=== PATIENT | female | born 1940 | race African-American/Black ===

== ENCOUNTER 2017-04-05 11:45 | Inpatient (IN) | payer OTHER ==
[2017-04-05] MEDS ORDERED: SODIUM CHLORIDE 0.9% 1000 ML INFUS.BAG IV STA (12:18)
[2017-04-05] MEDS ORDERED: ACETAMINOPHEN 1000 MG/100 ML VIAL (NON FORMULARY) IVPB ONE (12:35)
[2017-04-05] MEDS ORDERED: ACETAMINOPHEN INJECTION 100 ML IVPB ONE (12:43)
[2017-04-05 12:55] LABS: VENOUS BLOOD GAS HCO3 29.9 meq/L (19-25); VENOUS PH 7.4 (7.32-7.42)
--- NOTE | 2017-04-05 13:16 | PDOC ---
History of Present Illness <Ankita Lam - Last Filed: 04/05/17 13:37> - General History Source: Patient, Other (home health aide) Exam Limitations: No Limitations - History of Present Illness Initial Comments: 04/05/17 12:17 76-year-old female presents to the emergency department for evaluation of fever , fatigue, and constipation. As per her home health aid patient was given laxative by her and now is moving a bowel movement but fever continues despite giving her Motrin earlier. Patient denies abdominal pain but does state cough with weakness without difficulty breathing but does state sleep apnea requiring her to use BiPAP at night. Patient history of renal failure, diabetes , anemia, hypertension, COPD, CVA, asthma, and obesity. Timing/Duration: getting worse Severity: moderate Associated Symptoms: reports: cough, fever/chills, weakness <Heidi Beltran - Last Filed: 04/05/17 16:34> - General Chief Complaint: Lethargy Stated Complaint: LETHARGY/ABD PAIN Time Seen by Provider: 04/05/17 11:56 Past History <Ankita Lam - Last Filed: 04/05/17 13:37> - Travel Traveled outside of the country in the last 30 days: No Close contact w/someone who was outside of country & ill: No - Past Medical History Anemia: Yes Asthma: Yes Cardiac Disorders: Yes (CARDIAC CATH, HCVD) CVA: Yes (R hemiparesis) COPD: Yes Diabetes: Yes HTN: Yes Thyroid Disease: Yes - Surgical History Cardiac Surgery: Yes (CARDIAC CATH) - Immunization History Immunization Up to Date: Yes - Psycho/Social/Smoking Cessation Hx Anxiety: No Suicidal Ideation: No Smoking Status: Yes Smoking History: Never smoked Have you smoked in the past 12 months: No Number of Cigarettes Smoked Daily: 0 If you are a former smoker, when did you quit?: 2000 Cigars Per Day: 0 Information on smoking cessation initiated: No Hx Alcohol Use: No Drug/Substance Use Hx: No Substance Use Type: None Hx Substance Use Treatment: No Patient Lives Alone: No Lives with/in: spouse/SO <Heidi Beltran - Last Filed: 04/05/17 16:34> - Past Medical History Allergies/Adverse Reactions: Allergies Allergy/AdvReac Type Severity Reaction Status Date / Time codeine [Codeine] Allergy Severe Hives Verified 04/05/17 12:15 Iodine and Iodide Containing Allergy Verified 04/05/17 12:15 Produc nuts Allergy Mild Uncoded 04/05/17 12:15 Home Medications: Ambulatory Orders Atorvastatin Ca [Lipitor] 40 mg PO HS #7 tablet 08/05/12 Amlodipine Besylate [Norvasc -] 10 mg PO DAILY 03/02/16 Docusate Sodium [Colace -] 100 mg PO DAILY 08/09/16 Insulin Aspart [Novolog Flexpen] 100 unit SQ ASDIR 08/09/16 Insulin (Levemir) [Levemir Vial] 25 units SQ HS ml 08/27/16 Isosorbide Mononitrate [Imdur -] 30 mg PO DAILY tab.sr.24h 08/27/16 Levothyroxine [Synthroid -] 88 mcg PO AM tablet 08/27/16 Aspirin [ASA -] 81 mg PO DAILY 04/05/17 Review of Systems - Review of Systems Able to Perform ROS?: Yes Constitutional: Yes: Weakness HEENTM: No: Symptoms Reported Respiratory: Yes: Cough Cardiac (ROS): No: Symptoms Reported ABD/GI: Yes: Constipated Musculoskeletal: No: Symptoms Reported Integumentary: No: Symptoms Reported Neurological: Yes: Weakness Endocrine: No: Symptoms Reported Hematologic/Lymphatic: No: Symptoms Reported <Heidi Beltran - Last Filed: 04/05/17 16:34> *Physical Exam - Vital Signs Last Vital Signs Temp Pulse Resp BP Pulse Ox 102.5 F H 85 18 130/95 100 04/05/17 11:45 04/05/17 12:30 04/05/17 11:45 04/05/17 11:45 04/05/17 12:30 <Ankita Lam - Last Filed: 04/05/17 13:37> - Vital Signs Last Vital Signs Temp Pulse Resp BP Pulse Ox 102.5 F H 85 18 130/95 100 04/05/17 11:45 04/05/17 12:30 04/05/17 11:45 04/05/17 11:45 04/05/17 12:30 - Physical Exam General Appearance: Yes: Nourished, Appropriately Dressed. No: Apparent Distress HEENT: positive: EOMI, ANTONY, TMs Normal, Pharynx Normal. negative: Pale Conjunctivae Neck: positive: Supple Respiratory/Chest: positive: Decreased Breath Sounds (bases bilateral). negative: Respiratory Distress, Accessory Muscle Use Cardiovascular: positive: Regular Rhythm, Regular Rate. negative: Murmur Gastrointestinal/Abdominal: positive: Soft. negative: Tenderness Integumentary: positive: Normal Color, Warm, Moist Neurologic: positive: Normal Mood/Affect <Heidi Beltran - Last Filed: 04/05/17 16:34> Heart Score/ECG Review - ECG Intrepretation Rhythm: Regular Rhythm (rate 76) <Heidi Beltarn - Last Filed: 04/05/17 16:34> ED Treatment Course - LABORATORY CBC & Chemistry Diagram: 04/05/17 12:20 04/05/17 12:20 - ADDITIONAL ORDERS Additional order review: Laboratory Results 04/05/17 04/05/17 12:45 12:18 VBG pH 7.40 POC VBG pCO2 49.3 POC VBG pO2 45.1 Mixed VBG HCO3 29.9 H Lactic Acid 1.2 - RADIOLOGY Radiology Studies Ordered: Category Date Time Status CHEST X-RAY PORTABLE* [RAD] Stat Radiology 04/05/17 12:18 Completed - Medications Given in the ED: ED Medications Discontinued Medications Generic Name Dose Route Start Last Admin Trade Name Freq PRN Reason Stop Dose Admin Acetaminophen 1,000 mg 04/05/17 12:35 04/05/17 12:54 Ofirmev Injection - IVPB 04/05/17 12:36 1,000 mg ONCE ONE Administration Sodium Chloride 2,600 ml 04/05/17 12:18 04/05/17 12:54 Normal Saline - IV 04/05/17 12:19 2,600 ml ONCE STA Administration <Ankita Lam - Last Filed: 04/05/17 13:37> - LABORATORY CBC & Chemistry Diagram: 04/05/17 12:20 04/05/17 12:20 - ADDITIONAL ORDERS Additional order review: Laboratory Results 04/05/17 12:18 VBG pH 7.40 POC VBG pCO2 49.3 POC VBG pO2 45.1 Mixed VBG HCO3 29.9 H - Medications Given in the ED: ED Medications Discontinued Medications Generic Name Dose Route Start Last Admin Trade Name Freq PRN Reason Stop Dose Admin Acetaminophen 1,000 mg 04/05/17 12:35 04/05/17 12:54 Ofirmev Injection - IVPB 04/05/17 12:36 1,000 mg ONCE ONE Administration Sodium Chloride 2,600 ml 04/05/17 12:18 04/05/17 12:54 Normal Saline - IV 04/05/17 12:19 2,600 ml ONCE STA Administration <Heidi Beltran - Last Filed: 04/05/17 16:34> Medical Decision Making - Medical Decision Making 04/05/17 13:37 Pt seen and examined by me. Agree with above history and physical, assessment and plan. patient presents to the Ed complaining of shortness of breath. Febrile and tachypneic on arrival to the ED, speaking in one to two word sentences. History of morbid obesity and sleep apnea, uses bipap and home O2. Treated for sepsis with broad spectrum antibiotics, [id number] on bipap . Will check labs and admit for sepsis. <Ankita Lam - Last Filed: 04/05/17 13:37> - Medical Decision Making 04/05/17 12:21 Patient brought in for fever, cough, and weakness. Patient exam was found to have a fever of 102.5 with decreased breath sounds at bases. Patient ordered septic workup, IV Tylenol, BiPAP although satting at 100% . 04/05/17 13:55 Laboratory Tests 04/05/17 04/05/17 04/05/17 12:18 12:20 12:45 WBC 14.3 H Hgb 9.6 L D Hct 29.3 L Neutrophils % 87.3 H D Mixed VBG HCO3 29.9 H Lactic Acid 1.2 Chest x-ray compared to 08/21/2016 shows no acute Pathology. Urine pending. patient upon arrival was ordered for [facility] for sepsis coverage. 04/05/17 15:06 Laboratory Tests 08/24/16 08/26/16 08/27/16 06:05 07:00 07:05 Sodium Potassium Chloride Carbon Dioxide Anion Gap BUN Creatinine 3.2 H 2.9 H 2.8 H Random Glucose Calcium Total Bilirubin AST ALT Urine Protein Ur Leukocyte Esterase 04/05/17 04/05/17 12:20 14:35 Sodium 138 Potassium 4.6 Chloride 97 L Carbon Dioxide 30 Anion Gap 11 BUN 70 H D Creatinine 2.9 H Random Glucose 162 H D Calcium 9.1 Total Bilirubin 0.6 D AST 25 D ALT 21 D Urine Protein 1+ H Ur Leukocyte Esterase 1+ H 04/05/17 15:30 Laboratory Tests 04/05/17 14:35 Urine WBC 15 Patient with previous urine culture that was sensitive to cephalosporins secondary to Escherichia coli organism from a urine collected from July 2016. Case discussed with hospitalist for admission secondary to sepsis and UTI. Accepted under Dr. carr to [facility] inpatient 04/05/17 16:33 <Heidi Beltran - Last Filed: 04/05/17 16:34> *DC/Admit/Observation/Transfer <Ankita Lam - Last Filed: 04/05/17 13:37> - Discharge Dispostion Admit: Yes <Heidi Beltran - Last Filed: 04/05/17 16:34> Diagnosis at time of Disposition: CKD (chronic kidney disease) UTI (urinary tract infection) Qualifiers: Urinary tract infection type: acute cystitis Hematuria presence: without hematuria Qualified Code(s): N30.00 - Acute cystitis without hematuria Sepsis Qualifiers: Sepsis type: Escherichia coli Qualified Code(s): A41.51 - Sepsis due to Escherichia coli [E. coli] - Referrals Referrals: Jose Ramon Holt MD [Primary Care Provider] -
[2017-04-05 13:35] LABS: BASOPHIL 0.4 % (0-2.0); EOSINOPHIL 0.1 % (0-4.5); MCH 27.7 pg (25.7-33.7); MCHC 32.7 g/dl (32.0-36.0); MEAN CELL VOLUME 84.8 fl (80-96); MEAN PLT VOLUME 9.1 fl (7.5-11.1); NEUTROPHILS 87.3 % (42.8-82.8); PLATELET COUNT 176 K/MM3 (134-434); RDW 15.6 % (11.6-15.6); WHITE BLOOD COUNT 14.3 K/mm3 (4.0-10.0)
[2017-04-05 13:47] LABS: INR 1.27 (0.82-1.09)
[2017-04-05] MEDS ORDERED: VANCOMYCIN 1,000 MG in DEXTROSE 5%-WATER - 250 ML IVPB ONE (13:47)
[2017-04-05 13:50] LABS: ACTIVATED PTT 32.8 SECONDS (26.9-34.4)
[2017-04-05 14:02] LABS: ALBUMIN 3.6 g/dl (3.4-5.0); ANION GAP 11 (8-16); BILIRUBIN,TOTAL 0.6 mg/dL (0.2-1.0); CALCIUM 9.1 mg/dL (8.5-10.1); CO2 30 mmol/L (21-32); CREATININE 2.9 mg/dL (0.55-1.02); GLUCOSE,RANDOM 162 mg/dL (74-106); SGOT/AST 25 U/L (15-37); SGPT/ALT 21 U/L (12-78); TOT PROT 7.1 g/dl (6.4-8.2)
[2017-04-05 14:03] LABS: ALK PHOS 84 U/L (45-117)
[2017-04-05] MEDS ORDERED: VANCOMYCIN 1 GRAM (PRE-DOCKED) 250 ML IVPB ONE (14:43)
[2017-04-05 14:47] LABS: URINE APPEARANCE CLEAR; URINE BILIRUBIN NEGATIVE (NEGATIVE); URINE COLOR STRAW; URINE GLUCOSE (UA) NEGATIVE (NEGATIVE); URINE KETONE NEGATIVE (NEGATIVE); URINE NITRITE NEGATIVE (NEGATIVE); URINE UROBILINOGEN NEGATIVE E.U./dl (0.2-1.0)
[2017-04-05 15:04] LABS: URINE BLOOD 1+ (NEGATIVE); URINE LEUK ESTERASE 1+ (NEGATIVE); URINE PROTEIN 1+ (NEGATIVE)
[2017-04-05 15:05] LABS: URINE BACTERIA RARE /hpf (NONE SEEN); URINE MUCUS RARE; URINE RBC <1 /hpf (0-3); URINE WBC 15 /hpf (3-5)
--- NOTE | 2017-04-05 17:12 | PN ---
Teaching Attending Note Name of Resident: Mark Garcia ATTENDING PHYSICIAN STATEMENT I saw and evaluated the patient. I reviewed the resident's note and discussed the case with the resident. I agree with the resident's findings and plan as documented. SUBJECTIVE: Patient presented with rigors unable to have a conversation and unable to say a word due to having rigors. OBJECTIVE: Vital Signs Temperature 102.5 F H 04/05/17 11:45 Pulse Rate 81 04/05/17 16:07 Respiratory Rate 23 04/05/17 16:07 Blood Pressure 146/78 04/05/17 16:07 O2 Sat by Pulse Oximetry (%) 100 04/05/17 16:07 CBCD WBC 14.3 K/mm3 (4.0-10.0) H 04/05/17 12:20 RBC 3.45 M/mm3 (3.60-5.2) L 04/05/17 12:20 Hgb 9.6 GM/dL (10.7-15.3) L D 04/05/17 12:20 Hct 29.3 % (32.4-45.2) L 04/05/17 12:20 MCV 84.8 fl (80-96) 04/05/17 12:20 MCHC 32.7 g/dl (32.0-36.0) 04/05/17 12:20 RDW 15.6 % (11.6-15.6) 04/05/17 12:20 Plt Count 176 K/MM3 (134-434) D 04/05/17 12:20 MPV 9.1 fl (7.5-11.1) 04/05/17 12:20 CMP Sodium 138 mmol/L (136-145) 04/05/17 12:20 Potassium 4.6 mmol/L (3.5-5.1) 04/05/17 12:20 Chloride 97 mmol/L (98-107) L 04/05/17 12:20 Carbon Dioxide 30 mmol/L (21-32) 04/05/17 12:20 Anion Gap 11 (8-16) 04/05/17 12:20 BUN 70 mg/dL (7-18) H D 04/05/17 12:20 Creatinine 2.9 mg/dL (0.55-1.02) H 04/05/17 12:20 Creat Clearance w eGFR 15.78 (>60) 04/05/17 12:20 Random Glucose 162 mg/dL (74-106) H D 04/05/17 12:20 Calcium 9.1 mg/dL (8.5-10.1) 04/05/17 12:20 Total Bilirubin 0.6 mg/dL (0.2-1.0) D 04/05/17 12:20 AST 25 U/L (15-37) D 04/05/17 12:20 ALT 21 U/L (12-78) D 04/05/17 12:20 Alkaline Phosphatase 84 U/L (45-117) 04/05/17 12:20 Total Protein 7.1 g/dl (6.4-8.2) D 04/05/17 12:20 Albumin 3.6 g/dl (3.4-5.0) D 04/05/17 12:20 Home Medications Medication Instructions Recorded Atorvastatin Ca [Lipitor] 40 mg PO HS #7 tablet 08/05/12 Amlodipine Besylate [Norvasc -] 10 mg PO DAILY 03/02/16 Docusate Sodium [Colace -] 100 mg PO DAILY 08/09/16 Insulin Aspart [Novolog Flexpen] 100 unit SQ ASDIR 08/09/16 Insulin (Levemir) [Levemir Vial] 25 units SQ HS ml 08/27/16 Isosorbide Mononitrate [Imdur -] 30 mg PO DAILY tab.sr.24h 08/27/16 Levothyroxine [Synthroid -] 88 mcg PO AM tablet 08/27/16 Aspirin [ASA -] 81 mg PO DAILY 04/05/17 Current Medications Generic Name Dose Route Start Last Admin Trade Name Freq PRN Reason Stop Dose Admin Acetaminophen 650 mg 04/05/17 17:56 Tylenol - PO Q6H PRN PAIN OR FEVER Albuterol Sulfate 1 amp 04/05/17 18:59 Ventolin 0.083% Nebulizer Soln - NEB Q6H PRN SHORT OF BREATH/WHEEZING Amlodipine Besylate 10 mg 04/06/17 10:00 Norvasc - PO DAILY [facility] Aspirin 81 mg 04/06/17 10:00 Asa - PO DAILY [facility] Atorvastatin Calcium 40 mg 04/05/17 22:00 Lipitor - PO HS [facility] Ceftriaxone Sodium 1 gm 04/05/17 19:45 Rocephin - IM 04/05/17 19:46 ONCE ONE Docusate Sodium 100 mg 04/06/17 10:00 Colace - PO DAILY [facility] Sodium Chloride 1,000 mls @ 50 mls/hr 04/05/17 17:45 04/05/17 18:05 Normal Saline - IV 04/06/17 13:44 50 mls/hr ASDIR [facility] Administration Ceftriaxone Sodium 2 gm/ 100 mls @ 200 mls/hr 04/06/17 10:00 Dextrose IVPB DAILY [facility] Insulin Aspart 1 vial 04/05/17 22:00 Novolog Vial Sliding Scale - SQ ACHS [facility] Protocol Insulin Detemir 25 units 04/05/17 22:00 Levemir Vial SQ HS [facility] Isosorbide Mononitrate 30 mg 04/06/17 10:00 Imdur - PO DAILY [facility] Levothyroxine Sodium 88 mcg 04/06/17 07:00 Synthroid - PO AM [facility] Echo 08/13/17: Left ventricular Ejection fraction normal, left ventricular size , thickness and function normal. Mild MR and TR, right ventricular systolic pressure normal. ASSESSMENT AND PLAN: Patient is a 76-year-old female with a significant medical history of CVA ( residual R-saima paresis, slurred speech), Asthma, DM Type II, COPD, CKD Stage 4 , Pneumonia, PVD, HTN, Chronic R- lower extremity edema presented to the ED via EMS with the chief complaints of Left upper quadrant pain x 2 days. # Acute Sepsis , Patient had prior gram negative bacteremia with UTI sensitive to Rocephin. will start her 2gm IV daily 1st dose today, ID consult in am. # Acute UTI with sepsis presented with Rigors, possible pylonephritis vs gram negative bacteremia. . ID consult to see the patient. Tylenol prn #Acute over chronic CKD stage IV with Creatinine 2.9 (baseline around 2.5), Nephrology consult # Normocytic anemia monitor possible due to CKD # Hx of CVA (residual right hemiparesis); No signs/symptoms of new stroke # Hypertension-controlled; Norvasc 10mg PO Daily # Hx of COPD continue nebulizer txment # CAD (s/p cath but no stents) continue Aspirin 81mg Daily # DM; HbA1c ordered for am; Levemir 25U sq HS; BGM, ISS ACHS # Hypothyroidism continue Levothyroxine 88 mcg PO AM DVT Px: Heparin sq
[2017-04-05] MEDS ORDERED: CEFTRIAXONE 50 ML IVPB ONE (17:27)
[2017-04-05] MEDS ORDERED: CEFTRIAXONE 50 ML ONE (17:41)
--- NOTE | 2017-04-05 17:44 | HP ---
CHIEF COMPLAINT: Left back pain PCP: Jared HISTORY OF PRESENT ILLNESS: This is a 76 y/o F with PMH obesity, cva (with residual right sided weakness), asthma, ckd, cad (s/p cardiac cath), DM, HTN, hypothyroidism, GI bleed with anemia (s/p transfusion in the past) who presented to the ED with left abdominal and flank pain. The pain was sharp, located at the left lower costal margin at the midscapular line, beginning yesterday afternoon, nonradiating, without alleviating or exacerbating factors, constant, and moderate to severe. The patient's states he noticed that she did not appear to be in her usual state of health and that she looked similar to how she has looked prior to previous hospital admissions. She had been constipated, so he gave her a larger dose of her usual stool softener, which precipitated a large bowel movement. This was yesterday prior to the onset of her flank pain. The patient had a recent visit to her doctor's office, though she cannot recall which doctor that was. She has a home health aid for 11 hrs per day. She sees Dr. Coleman as her PCP. ER course was notable for: (1) Urine and blood cultures drawn and pending (2) febrile at 102.5, bp 138/90, hr 71, O2 sat 100% on NIPPV (3) 1 dose Vanco 250 IVPB Recent Travel: denies PAST MEDICAL HISTORY: obesity, cva (residual RUE weakness), asthma, ckd, cad (s/p cardiac cath), DM, HTN, hypothyroidism, GI bleed with anemia (s/p transfusion in the past) PAST SURGICAL HISTORY: heart cath without stent Social History: Smoking: remote Alcohol: denies Drugs: denies Family History: denies Allergies: codeine [Codeine] Allergy (Severe, Verified 04/05/17 12:15) Hives Iodine and Iodide Containing Produc Allergy (Verified 04/05/17 12:15) nuts Allergy (Mild, Uncoded 04/05/17 12:15) HOME MEDICATIONS: Home Medications Medication Instructions Recorded Atorvastatin Ca [Lipitor] 40 mg PO HS #7 tablet 08/05/12 Amlodipine Besylate [Norvasc -] 10 mg PO DAILY 03/02/16 Docusate Sodium [Colace -] 100 mg PO DAILY 08/09/16 Insulin Aspart [Novolog Flexpen] 100 unit SQ ASDIR 08/09/16 Insulin (Levemir) [Levemir Vial] 25 units SQ HS ml 08/27/16 Isosorbide Mononitrate [Imdur -] 30 mg PO DAILY tab.sr.24h 08/27/16 Levothyroxine [Synthroid -] 88 mcg PO AM tablet 08/27/16 Aspirin [ASA -] 81 mg PO DAILY 04/05/17 REVIEW OF SYSTEMS CONSTITUTIONAL: fever, malaise Absent: chills, diaphoresis, generalized weakness, loss of appetite, weight change HEENT: Absent: rhinorrhea, nasal congestion, throat pain, throat swelling, difficulty swallowing, mouth swelling, ear pain, eye pain, visual changes CARDIOVASCULAR: Absent: chest pain, syncope, palpitations, irregular heart rate, lightheadedness , peripheral edema RESPIRATORY: Absent: cough, shortness of breath, dyspnea with exertion, orthopnea, wheezing, stridor, hemoptysis GASTROINTESTINAL: Absent: abdominal pain, abdominal distension, nausea, vomiting, diarrhea, constipation, melena, hematochezia GENITOURINARY: frequency, flank pain, urgency Absent: dysuria, hesitancy, hematuria, , genital pain MUSCULOSKELETAL: Absent: myalgia, arthralgia, joint swelling, back pain, neck pain SKIN: Absent: rash, itching, pallor HEMATOLOGIC/IMMUNOLOGIC: Absent: easy bleeding, easy bruising, lymphadenopathy, frequent infections ENDOCRINE: Absent: unexplained weight gain, unexplained weight loss, heat intolerance, cold intolerance NEUROLOGIC: Absent: headache, focal weakness or paresthesias, dizziness, unsteady gait, seizure, mental status changes, bladder or bowel incontinence PSYCHIATRIC: Absent: anxiety, depression, suicidal or homicidal ideation, hallucinations. PHYSICAL EXAMINATION Vital Signs - 24 hr 04/05/17 04/05/17 04/05/17 11:45 12:30 14:00 Temperature 102.5 F H Pulse Rate 75 87 Pulse Rate [ 71 Apical] Respiratory 18 24 Rate Blood Pressure 130/95 Blood Pressure 138/90 [Left] O2 Sat by Pulse 100 100 100 Oximetry (%) 04/05/17 04/05/17 04/05/17 14:40 15:00 16:07 Temperature Pulse Rate Pulse Rate [ 76 81 Apical] Respiratory 22 23 Rate Blood Pressure Blood Pressure 122/67 146/78 [Left] O2 Sat by Pulse 99 100 100 Oximetry (%) GENERAL: Awake, alert, and fully oriented, in respiratory distress. HEAD: Normal with no signs of trauma. EYES: conjunctival palor. Pupils equal, round and reactive to light, extraocular movements intact, sclera anicteric, No lid lag. EARS, NOSE, THROAT: Ears normal, nares patent, oropharynx clear without exudates. Moist mucous membranes. NECK: Normal range of motion, supple without lymphadenopathy, JVD, or masses. LUNGS: b/l wheeze, Breath sounds equal. no crackles. No accessory muscle use. HEART: Regular rate and rhythm, normal S1 and S2 without murmur, rub or gallop. ABDOMEN: B/l flank tenderness L>R, Soft, obese, not distended, normoactive bowel sounds, no guarding, no rebound, no masses. No hepatomegaly or splenomegaly. MUSCULOSKELETAL: Normal range of motion at all joints. No bony deformities or tenderness. No CVA tenderness. UPPER EXTREMITIES: 2+ pulses, warm, well-perfused. No cyanosis. No clubbing. No peripheral edema. LOWER EXTREMITIES: 2+ pulses, warm, well-perfused. No calf tenderness. No peripheral edema. NEUROLOGICAL: Cranial nerves II-XII intact. Normal speech. Normal gait. PSYCHIATRIC: Cooperative. Good eye contact. Appropriate mood and affect. SKIN: Warm, dry, normal turgor, no rashes or lesions noted, normal capillary refill. Laboratory Results - last 24 hr 04/05/17 04/05/17 04/05/17 12:18 12:20 12:20 WBC 14.3 H RBC 3.45 L Hgb 9.6 L D Hct 29.3 L MCV 84.8 MCH 27.7 MCHC 32.7 RDW 15.6 Plt Count 176 D MPV 9.1 Neutrophils % 87.3 H D Lymphocytes % 6.5 L D Monocytes % 5.7 Eosinophils % 0.1 D Basophils % 0.4 INR 1.27 H PTT (Actin FS) 32.8 VBG pH 7.40 POC VBG pCO2 49.3 POC VBG pO2 45.1 Mixed VBG HCO3 29.9 H Sodium Potassium Chloride Carbon Dioxide Anion Gap BUN Creatinine Creat Clearance w eGFR Random Glucose Lactic Acid Calcium Total Bilirubin AST ALT Alkaline Phosphatase Total Protein Albumin Urine Color Urine Appearance Urine pH Urine Protein Urine Glucose (UA) Urine Ketones Urine Blood Urine Nitrite Urine Bilirubin Urine Urobilinogen Ur Leukocyte Esterase Urine RBC Urine WBC Ur Epithelial Cells Urine Bacteria Urine Mucus 04/05/17 04/05/17 04/05/17 12:20 12:45 14:35 WBC RBC Hgb Hct MCV MCH MCHC RDW Plt Count MPV Neutrophils % Lymphocytes % Monocytes % Eosinophils % Basophils % INR PTT (Actin FS) VBG pH POC VBG pCO2 POC VBG pO2 Mixed VBG HCO3 Sodium 138 Potassium 4.6 Chloride 97 L Carbon Dioxide 30 Anion Gap 11 BUN 70 H D Creatinine 2.9 H Creat Clearance w eGFR 15.78 Random Glucose 162 H D Lactic Acid 1.2 Calcium 9.1 Total Bilirubin 0.6 D AST 25 D ALT 21 D Alkaline Phosphatase 84 Total Protein 7.1 D Albumin 3.6 D Urine Color Straw Urine Appearance Clear Urine pH 7.0 D Urine Protein 1+ H Urine Glucose (UA) Negative Urine Ketones Negative Urine Blood 1+ H Urine Nitrite Negative Urine Bilirubin Negative Urine Urobilinogen Negative Ur Leukocyte Esterase 1+ H Urine RBC <1 Urine WBC 15 Ur Epithelial Cells Rare Urine Bacteria Rare Urine Mucus Rare ASSESSMENT/PLAN: This is a 76 y/o F with PMH obesity, cva (with residual right sided weakness), asthma, ckd, cad (s/p cardiac cath), DM, HTN, thyroid disease, GI bleed with anemia (s/p transfusion in the past) who presented to the ED with left abdominal and flank pain. #Sepsis -likely secondary to UTI -vitals in ED: temp 102.5, BP 138/90, HR 71, O2 sat 100% -in ED, pt received 1 dose Vanco 250mg IVPB, NS 2600ml, acetaminophen 1000mg IVPB, UA (+1 prot, +1 blood, +1 LE, RBC < 1, WBC 15), urine culture, blood culture -Admit to Med/Surg -NS 50/hr x 1 bag -Acetaminophen 650mg Q6H PRN -Ceftriaxone 1gm Daily -Nephro consult (Dr. Zamorano) -Renal U/S #DM -ISS -Levemir 25u SQ HS -pending A1c #HTN -Amlodipine 10mg PO Daily #CAD -Lipitor 40mg PO HS -Isosorbide Mononitrate 30mg PO Daily -ASA 81mg PO Daily -Previous Echo shows normal LVEF #Asthma/COPD -Albuterol Neb 0.083% Q6H PRN #Hypothyroid -Synthroid 88mcg PO AM #Constipation -Colace 100mg PO Daily #FEN -NS 50/hr x 1 bag -high BUN/Marzipan Maker likely 2/2 CKD -NPO #Dispo -Admit to Med/Surg Visit type - Emergency Visit Emergency Visit: Yes ED Registration Date: 04/05/17 Care time: The patient presented to the Emergency Department on the above date and was hospitalized for further evaluation of their emergent condition. - New Patient This patient is new to me today: Yes Date on this admission: 04/05/17 - Critical Care Critical Care patient: No
[2017-04-05] MEDS ORDERED: SODIUM CHLORIDE 1,000 ML IV SCH (17:45)
--- NOTE | 2017-04-05 17:45 | HP ---
CHIEF COMPLAINT: " Left upper quadrant pain" PCP: HISTORY OF PRESENT ILLNESS: Patient is a 76-year-old female with a significant medical history of CVA ( residual R-saima paresis, slurred speech), Asthma, DM Type II, COPD, CKD Stage 4 , Pneumonia, PVD, HTN, Chronic R- lower extremity edema presented to the ED via EMS with the chief complaints of Left upper quadrant abdominal pain x 2 days. As per the patients , she was apparently well until two days ago when she suddenly developed pain over the left upper quadrant, radiating towards the left flank, not associated with nausea or vomiting. This morning she was febrile (Temp not recorded), she didn't look too good and hence was brought to the ED. Patient reports that she had increased frequency of urination x 1 day but no burning or urgency or hematuria. reports that patient had constipation several days and was given stool softners and she had a large bowel movement yesterday, not containing any blood. Patient also mentions that she visited her doctor last week (doesn't remember the name) and had another docs appointment tomorrow. Denies chest pain, sob, palpitation, headache, chills, rigors or sweating. 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 She also mentioned patient symptomatically improved hence continued on Bipap at this time. If her breathing improves, can discontinue. (1) Temp-102.5 F; tachycardic (2) CXR (3) IV NS : IV Vancomycin 1000mg stat Recent Travel: None PAST MEDICAL HISTORY: CVA (residual R-saima paresis, slurred speech), Asthma, DM Type II, COPD, CKD Stage 4, Pneumonia, PVD, HTN, Chronic R- lower extremity edema, CAD (Cardiac cath, no stents) PAST SURGICAL HISTORY: Social History: Smoking: Quit many years ago Alcohol:Denies Drugs: Denies Family History: Unknown Allergies codeine [Codeine] Allergy (Severe, Verified 04/05/17 12:15) Hives Iodine and Iodide Containing Produc Allergy (Verified 04/05/17 12:15) nuts Allergy (Mild, Uncoded 04/05/17 12:15) HOME MEDICATIONS: Home Medications Medication Instructions Recorded Atorvastatin Ca [Lipitor] 40 mg PO HS #7 tablet 08/05/12 Amlodipine Besylate [Norvasc -] 10 mg PO DAILY 03/02/16 Docusate Sodium [Colace -] 100 mg PO DAILY 08/09/16 Insulin Aspart [Novolog Flexpen] 100 unit SQ ASDIR 08/09/16 Insulin (Levemir) [Levemir Vial] 25 units SQ HS ml 08/27/16 Isosorbide Mononitrate [Imdur -] 30 mg PO DAILY tab.sr.24h 08/27/16 Levothyroxine [Synthroid -] 88 mcg PO AM tablet 08/27/16 Aspirin [ASA -] 81 mg PO DAILY 04/05/17 REVIEW OF SYSTEMS CONSTITUTIONAL: Present: Fever Absent: fever, chills, diaphoresis, generalized weakness, malaise, loss of appetite, weight change HEENT: Absent: rhinorrhea, nasal congestion, throat pain, throat swelling, difficulty swallowing, mouth swelling, ear pain, eye pain, visual changes CARDIOVASCULAR: Absent: chest pain, syncope, palpitations, irregular heart rate, lightheadedness , peripheral edema RESPIRATORY: Absent: cough, shortness of breath, dyspnea with exertion, orthopnea, wheezing, stridor, hemoptysis GASTROINTESTINAL: Present: abdominal pain Absent: abdominal distension, nausea, vomiting, diarrhea, constipation, melena, hematochezia GENITOURINARY: Absent: dysuria, frequency, urgency, hesitancy, hematuria, flank pain, genital pain MUSCULOSKELETAL: Absent: myalgia, arthralgia, joint swelling, back pain, neck pain SKIN: Absent: rash, itching, pallor HEMATOLOGIC/IMMUNOLOGIC: Absent: easy bleeding, easy bruising, lymphadenopathy, frequent infections ENDOCRINE: Absent: unexplained weight gain, unexplained weight loss, heat intolerance, cold intolerance NEUROLOGIC: Absent: headache, focal weakness or paresthesias, dizziness, unsteady gait, seizure, mental status changes, bladder or bowel incontinence PSYCHIATRIC: Absent: anxiety, depression, suicidal or homicidal ideation, hallucinations. PHYSICAL EXAMINATION Vital Signs - 24 hr 04/05/17 04/05/17 04/05/17 11:45 12:30 14:00 Temperature 102.5 F H Pulse Rate 75 87 Pulse Rate [ 71 Apical] Respiratory 18 24 Rate Blood Pressure 130/95 Blood Pressure 138/90 [Left] O2 Sat by Pulse 100 100 100 Oximetry (%) 04/05/17 04/05/17 04/05/17 14:40 15:00 16:07 Temperature Pulse Rate Pulse Rate [ 76 81 Apical] Respiratory 22 23 Rate Blood Pressure Blood Pressure 122/67 146/78 [Left] O2 Sat by Pulse 99 100 100 Oximetry (%) GENERAL: Morbidly obese female, lying in bed, Awake, alert, and fully oriented, in mild respiratory distress, on Bipap. HEAD: Normal with no signs of trauma. EYES: EOM intact, mild pallor +, no icterus EARS, NOSE, THROAT: Ears normal. Moist mucous membranes. NECK: Normal range of motion, supple without lymphadenopathy, JVD, or masses. LUNGS: B/L decreased breath sounds, scattered wheeze +. No crackles. No accessory muscle use. HEART: Regular rate and rhythm, normal S1 and S2 with systolic murmur. ABDOMEN: Soft, tenderness on the left upper quadrant, not distended, normoactive bowel sounds, no guarding, no rebound, no masses. No hepatomegaly or splenomegaly. MUSCULOSKELETAL: Normal range of motion at all joints. No bony deformities or tenderness. Left CVA tenderness. UPPER EXTREMITIES: 2+ pulses, warm, well-perfused. No cyanosis. No clubbing. No peripheral edema. LOWER EXTREMITIES: 2+ pulses, warm, well-perfused. No calf tenderness. No peripheral edema. NEUROLOGICAL: No facial droop, bulk, tone normal, power -Cranial nerves II-XII intact. Normal speech. Normal gait. PSYCHIATRIC: Cooperative. Good eye contact. Appropriate mood and affect. SKIN: Warm, dry, normal turgor, no rashes or lesions noted, normal capillary refill. Laboratory Results - last 24 hr 04/05/17 04/05/17 04/05/17 12:18 12:20 12:20 WBC 14.3 H RBC 3.45 L Hgb 9.6 L D Hct 29.3 L MCV 84.8 MCH 27.7 MCHC 32.7 RDW 15.6 Plt Count 176 D MPV 9.1 Neutrophils % 87.3 H D Lymphocytes % 6.5 L D Monocytes % 5.7 Eosinophils % 0.1 D Basophils % 0.4 INR 1.27 H PTT (Actin FS) 32.8 VBG pH 7.40 POC VBG pCO2 49.3 POC VBG pO2 45.1 Mixed VBG HCO3 29.9 H Sodium Potassium Chloride Carbon Dioxide Anion Gap BUN Creatinine Creat Clearance w eGFR Random Glucose Lactic Acid Calcium Total Bilirubin AST ALT Alkaline Phosphatase Total Protein Albumin Urine Color Urine Appearance Urine pH Urine Protein Urine Glucose (UA) Urine Ketones Urine Blood Urine Nitrite Urine Bilirubin Urine Urobilinogen Ur Leukocyte Esterase Urine RBC Urine WBC Ur Epithelial Cells Urine Bacteria Urine Mucus 04/05/17 04/05/17 04/05/17 12:20 12:45 14:35 WBC RBC Hgb Hct MCV MCH MCHC RDW Plt Count MPV Neutrophils % Lymphocytes % Monocytes % Eosinophils % Basophils % INR PTT (Actin FS) VBG pH POC VBG pCO2 POC VBG pO2 Mixed VBG HCO3 Sodium 138 Potassium 4.6 Chloride 97 L Carbon Dioxide 30 Anion Gap 11 BUN 70 H D Creatinine 2.9 H Creat Clearance w eGFR 15.78 Random Glucose 162 H D Lactic Acid 1.2 Calcium 9.1 Total Bilirubin 0.6 D AST 25 D ALT 21 D Alkaline Phosphatase 84 Total Protein 7.1 D Albumin 3.6 D Urine Color Straw Urine Appearance Clear Urine pH 7.0 D Urine Protein 1+ H Urine Glucose (UA) Negative Urine Ketones Negative Urine Blood 1+ H Urine Nitrite Negative Urine Bilirubin Negative Urine Urobilinogen Negative Ur Leukocyte Esterase 1+ H Urine RBC <1 Urine WBC 15 Ur Epithelial Cells Rare Urine Bacteria Rare Urine Mucus Rare ASSESSMENT/PLAN: Patient is a 76-year-old female with a significant medical history of CVA ( residual R-saima paresis, slurred speech), Asthma, DM Type II, COPD, CKD Stage 4 , Pneumonia, PVD, HTN, Chronic R- lower extremity edema presented to the ED via EMS with the chief complaints of Left upper quadrant pain x 2 days. # Sepsis likely secondary to urinary tract infection- r/o Pyelonephritis C/O left upper quadrant abdominal pain, left flank pain, left CVA tenderness , increased frequency of urination On arrival, she was febrile Temp-102.5 F; tachycardic In the ED, she was given IV NS, IV Vancomycin 1gm once Admitted in Med-Surg. Continue IV NS @ 50 mls/hr IV Ceftriaxone 1gm Daily Urine culture/Blood culture pending, will change antibiotics as per sensitivity USG of abdomen/pelvis # Hypertension-controlled Continue 10mg PO Daily Echo 08/13: Left ventricular Ejection fraction normal, left ventricular size , thicknes anf unction normal. MildMR and TR, right ventricular systolic pressure normal. # COPD-Stable Spo2 normal Duoneb PRN # ? ROSITA On Bipap which improved her breathing not on cpap at home, would consider Sleep study as outpatient Would consider Pulmonary consult for ROSITA/Obesity hypoventilation syndrome as outpatient. Echo in am # CAD (s/p cath but no stents)- Aysymptomatic Continue Aspirin 81mg Daily, Atorvastain 40mg HS # DM HbA1c ordered for am Levemir 25U sq HS ISS ACHS BGM ACHS # CKD stage IV Creatinine 2.9 (baseline around 2.5) Avoid nephrotoxic drugs Nephrology consult requested. # Hypothyroidism Continue Levothyroxine 88 mcg PO AM # CVA (residual right hemiparesis) Aspirin No signs/symptoms of new stroke PT evaluation tomorrow # FEN IV NS @ 50mls/hr Electrolytes normal, to be repeated tomorrow NPO except meds # Prophylaxis For DVT: Heparin 5000U sq BID For GI: Not indicated # Code Status: Full Code # Dispo: Admitted in Med-surg. Duration of stay unknown. Illness, Investigation and Plan of care explained to the patient and her . They verbalized understanding. Case discussed with Dr. Argueta. Visit type - Emergency Visit Emergency Visit: Yes ED Registration Date: 04/05/17 Care time: The patient presented to the Emergency Department on the above date and was hospitalized for further evaluation of their emergent condition. - New Patient This patient is new to me today: Yes Date on this admission: 04/05/17 - Critical Care Critical Care patient: No
[2017-04-05 18:25] VITALS: BMI 49.6
[2017-04-05] MEDS ORDERED: ALBUTEROL SO4 0.083% IH SOL 2.5 MG/3 ML VIAL.NEB. NEB PRN (18:59)
[2017-04-05] MEDS ORDERED: cefTRIAXone SODIUM 1 GM VIAL IM ONE (19:45)
[2017-04-05] MEDS ORDERED: cefTRIAXone 1 GM/50 ML BAG (PRE-DOCKED) IVPB ONE (20:30)
[2017-04-05] MEDS ORDERED: INSULIN (NOVOLOG) ASPART 100 UNITS/ML 10ML VIAL ONE (20:58)
[2017-04-05] MEDS: ATORVASTATIN CA 40 MG TABLET (FP) PO SCH (21:02)
[2017-04-05] MEDS: ACETAMINOPHEN 325 MG TABLET (FP) PO PRN (21:02)
[2017-04-05] MEDS: HEPARIN NA (PORCINE) 5,000 UNITS/ML 1ML VIAL SQ SCH (21:03)
[2017-04-05 21:18] LABS: TROPONIN I < 0.02 ng/ml (0.00-0.05)
[2017-04-05] MEDS: INSULIN DETEMIR 100 UNITS/ML MDV SQ SCH (23:24)
[2017-04-05] MEDS: INSULIN SLIDING SCALE (NOVOLOG) 1 VIAL SQ SCH (23:25)
[2017-04-06] MEDS: ACETAMINOPHEN 325 MG TABLET (FP) PO PRN ×2 (04:14→10:05)
[2017-04-06] MEDS ORDERED: NYSTATIN 100,000 UNIT/GM TOPICAL CREAM 15 GM TUBE TP SCH (06:00)
[2017-04-06] MEDS: LEVOTHYROXINE NA 88 MCG TABLET (FP) PO SCH (06:19)
[2017-04-06] MEDS: INSULIN SLIDING SCALE (NOVOLOG) 1 VIAL SQ SCH ×3 (06:19→16:51)
[2017-04-06 07:26] LABS: BASOPHIL 0.3 % (0-2.0); MCH 27.9 pg (25.7-33.7); MCHC 33.2 g/dl (32.0-36.0); MEAN CELL VOLUME 84.1 fl (80-96); MEAN PLT VOLUME 8.7 fl (7.5-11.1); NEUTROPHILS 88.3 % (42.8-82.8); PLATELET COUNT 143 K/MM3 (134-434); RDW 15.2 % (11.6-15.6); WHITE BLOOD COUNT 14.4 K/mm3 (4.0-10.0)
[2017-04-06 08:06] LABS: CALCIUM 8.9 mg/dL (8.5-10.1)
[2017-04-06 08:16] LABS: ALBUMIN 2.9 g/dl (3.4-5.0); ALK PHOS 66 U/L (45-117); ANION GAP 10 (8-16); BILIRUBIN,TOTAL 0.6 mg/dL (0.2-1.0); CO2 29 mmol/L (21-32); CREATININE 2.9 mg/dL (0.55-1.02); GLUCOSE,RANDOM 100 mg/dL (74-106); MAGNESIUM 2.6 mg/dL (1.8-2.4); PHOSPHOROUS 3.6 mg/dL (2.5-4.9); SGOT/AST 29 U/L (15-37); SGPT/ALT 22 U/L (12-78); TOT PROT 6.3 g/dl (6.4-8.2)
[2017-04-06 08:54] LABS: TROPONIN I < 0.02 ng/ml (0.00-0.05)
[2017-04-06] MEDS: NYSTATIN 100,000 UNIT/GM TOPICAL CREAM 15 GM TUBE TP SCH ×3 (10:00→17:23)
[2017-04-06] MEDS ORDERED: CEFTRIAXONE 50 ML IVPB SCH (10:00)
[2017-04-06] MEDS ORDERED: PT OWN MED DRAWER 7, Y5N ONE ×2 (10:03→23:57)
[2017-04-06] MEDS: amLODIPine BESYLATE 10 MG TABLET (FP) PO SCH (10:05)
[2017-04-06] MEDS: CEFTRIAXONE 100 ML IVPB SCH (10:05)
[2017-04-06] MEDS: ISOSORBIDE MONONITRATE 30 MG TAB.SR.24H (FP) PO SCH (10:05)
[2017-04-06] MEDS: DOCUSATE SODIUM 100 MG CAPSULE (FP) PO SCH (10:05)
[2017-04-06] MEDS: ASPIRIN 81 MG CHEWABLE TABLETS PO SCH (10:05)
[2017-04-06] MEDS: HEPARIN NA (PORCINE) 5,000 UNITS/ML 1ML VIAL SQ SCH ×2 (10:05→23:59)
--- NOTE | 2017-04-06 10:32 | CON.NEP ---
Consult Consult Specialty:: Nephrology (Marcus/Jaun) Referred by:: Ellie Reason for Consultation:: CKD stage 4 - History of Present Illness Chief Complaint: Fever History of Present Illness: 76 year old woman with PMhx of CKD Stage 4, Hypertension, DM, CVA who presented with complaints of fever and flank pain and admitted for SIRS/UTI with BUN/Cr of 68/2.9. Pt was seen by our service on prior admissions. Pt states she saw a installation and service technician last week but cannot recall the name. Was told that her renal function was stable. Pt denies any dysuriea, ABd pain, N/V/D or flank pain today. No chest pain or sob. No recent NSAID use. No outpatient Abx use. Reports good urine output. No Confusion, lethargy, weakness. 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 Cardio/Vascular: Yes: HTN, Hyperlipdemia Pulmonary: Yes: COPD Gastrointestinal: Yes: Constipation, GI Bleed Renal/: Yes: Renal Inusuff Endocrine: Yes: Diabetes Mellitus, Hypothyroidism - Alcohol/Substance Use Hx Alcohol Use: No - Smoking History Smoking history: Never smoked Have you smoked in the past 12 months: No Aproximately how many cigarettes per day: 0 If you are a former smoker, when did you quit?: 1999 - Social History Usual Living Arrangement: Other (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) ADL: Support Services History of Recent Travel: No Home Medications - Allergies Allergies/Adverse Reactions: Allergies Allergy/AdvReac Type Severity Reaction Status Date / Time codeine [Codeine] Allergy Severe Hives Verified 04/05/17 12:15 Iodine and Iodide Containing Allergy Verified 04/05/17 12:15 Produc nuts Allergy Mild Uncoded 04/05/17 12:15 - Home Medications Home Medications: Ambulatory Orders Atorvastatin Ca [Lipitor] 40 mg PO HS #7 tablet 08/05/12 Amlodipine Besylate [Norvasc -] 10 mg PO DAILY 03/02/16 Docusate Sodium [Colace -] 100 mg PO DAILY 08/09/16 Insulin Aspart [Novolog Flexpen] 100 unit SQ ASDIR 08/09/16 Insulin (Levemir) [Levemir Vial] 25 units SQ HS ml 08/27/16 Isosorbide Mononitrate [Imdur -] 30 mg PO DAILY tab.sr.24h 08/27/16 Levothyroxine [Synthroid -] 88 mcg PO AM tablet 08/27/16 Aspirin [ASA -] 81 mg PO DAILY 04/05/17 Family Disease History - Family Disease History Family History: Unremarkable Family Disease History: CA: Mother (Breast), Other: Father ( in an MVA) Review of Systems - Review of Systems Constitutional: reports: Fever. denies: Chills, Diaphoresis, Lethargy, Night Sweats, Weakness Eyes: reports: No Symptoms HENT: reports: No Symptoms Neck: reports: No Symptoms Cardiovascular: denies: Chest Pain, Edema, Palpitations, Shortness of Breath Respiratory: denies: Cough, Hemoptysis, Orthopnea, PND, Snoring, SOB, SOB on Exertion Gastrointestinal: denies: Abdominal Pain, Bloating, Constipation, Diarrhea, Dysphagia, Indigestion, Melena, Nausea, Rectal Bleeding, Vomiting, Vomiting Blood Genitourinary: reports: Flank Pain. denies: Burning, Discharge, Dysuria, Hematuria Musculoskeletal: reports: No Symptoms Integumentary: reports: No Symptoms Neurological: reports: No Symptoms Endocrine: reports: No Symptoms Nephrology Consult - Height Height: 5 ft 3 in - Weight Weight: 280 lb - BMI Body Mass Index (BMI): 49.6 - Lab Results CBC,BMP: CBC, BMP 04/06/17 05:35 04/06/17 05:35 Anion Gap: Anion Gap Anion Gap 10 (8-16) 04/06/17 05:35 - Imaging Chest X-ray: Report Reviewed - Physical Examination Vital Signs: Vital Signs Temperature 99.6 F 04/06/17 10:00 Pulse Rate 84 04/06/17 10:00 Respiratory Rate 20 04/06/17 10:00 Blood Pressure 111/52 04/06/17 10:00 O2 Sat by Pulse Oximetry (%) 96 04/05/17 22:00 Constitutional: Yes: Well Nourished, No Distress, Calm HENT: Yes: Atraumatic, Normocephalic Neck: Yes: Supple Cardiovascular: Yes: Regular Rate and Rhythm, S1, S2. No: JVD, Rub Respiratory: Yes: CTA Bilaterally. No: Rales, Rhonchi, SOB, Wheezes Gastrointestinal: Yes: Normal Bowel Sounds, Soft, Abdomen, Obese. No: Tenderness, Tenderness, Rebound Renal/: No: Anuria, Bladder Distention, CVA Tenderness - Left, CVA Tenderness - Right, Foster Present Edema: Yes Edema: LLE: Trace, RLE: Trace Neurological: Yes: Alert, Oriented Problem List - Problems (1) CKD (chronic kidney disease) Code(s): N18.9 - CHRONIC KIDNEY DISEASE, UNSPECIFIED (2) Sepsis Code(s): A41.9 - SEPSIS, UNSPECIFIED ORGANISM Qualifiers: Sepsis type: Escherichia coli Qualified Code(s): A41.51 - Sepsis due to Escherichia coli [E. coli] (3) UTI (urinary tract infection) Code(s): N39.0 - URINARY TRACT INFECTION, SITE NOT SPECIFIED Qualifiers: Urinary tract infection type: acute cystitis Hematuria presence: without hematuria Qualified Code(s): N30.00 - Acute cystitis without hematuria (4) Anemia Code(s): D64.9 - ANEMIA, UNSPECIFIED Qualifiers: Iron deficiency anemia type: chronic blood loss (5) Diabetes Code(s): E11.9 - TYPE 2 DIABETES MELLITUS WITHOUT COMPLICATIONS (6) Elevated BUN Code(s): R79.9 - ABNORMAL FINDING OF BLOOD CHEMISTRY, UNSPECIFIED (7) Elevated serum creatinine Code(s): R79.89 - OTHER SPECIFIED ABNORMAL FINDINGS OF BLOOD CHEMISTRY (8) HTN (hypertension) Code(s): I10 - ESSENTIAL (PRIMARY) HYPERTENSION (9) CVA (cerebral vascular accident) Code(s): I63.9 - CEREBRAL INFARCTION, UNSPECIFIED (10) Proteinuria Code(s): R80.9 - PROTEINURIA, UNSPECIFIED (11) Leukocytosis Code(s): D72.829 - ELEVATED WHITE BLOOD CELL COUNT, UNSPECIFIED Assessment/Plan A/P 76 year old woman with PMhx of CKD Stage 4, Hypertension, DM, CVA who presented with complaints of fever and flank pain and admitted for SIRS/UTI with BUN/Cr of 68/2.9 #CKD stage 4 with subnephrotic proteinuria Etiology of CKD likely related to diabetic + hypertensive kidney disease Prior work up showed b/l atrophic kidneys, subnephrotic proteinuira, + RIANNA, Neg Anti DS DNA, normal Complements Renal function appears at baseline at this time Check Renal US given presented with flank pain Check repeat UPCR, if any significant proteinuia would consider rechecking RIANNA asked pt to have obtain name of outpatient installation and service technician so they could follow or more outpatient w/u can be obtained Dose all meds for Cr Cl less then 20 no CLAY/ARB, NSAIDs, IV contrast, [employer] #Leukocytosis/Fever/Strep Bacteremia/SIRS Continue Abx as per Primary team Repeat blood cultures to ensure clearance consider ECHO #Dm Check Hgb A1C Continue insulin coverage #Hypertension Continue Amlodipine Thank you Terranec Zamorano DO
--- NOTE | 2017-04-06 10:35 | EKG ---
Test Reason : Blood Pressure : / mmHG Vent. Rate : 081 BPM Atrial Rate : 081 BPM P-R Int : 180 ms QRS Dur : 076 ms QT Int : 344 ms P-R-T Axes : 062 021 122 degrees QTc Int : 399 ms NORMAL SINUS RHYTHM NONSPECIFIC T WAVE ABNORMALITY ABNORMAL ECG WHEN COMPARED WITH ECG OF 11-AUG-2016 09:04, NO SIGNIFICANT CHANGE WAS FOUND Confirmed by KATY MTZ MD ([id number]) on 04/06/2017 10:34:43 AM Referred By: Confirmed By:KATY MTZ MD
[2017-04-06] MEDS: ALBUTEROL SO4 2.5/IPRATROPIUM 0.5 INH SOL 3 ML VIAL.NEB. NEB SCH ×2 (11:01→18:47)
[2017-04-06] MEDS ORDERED: INSULIN (NOVOLOG) ASPART 100 UNITS/ML 10ML VIAL ONE (16:50)
--- NOTE | 2017-04-06 18:26 | PN ---
Physical Exam: SUBJECTIVE: Patient seen and examined at bedside. No acute events overnight. Pt states she feels much better. No complaints at this time. Pt denies headache, cp , sob, abd pain, nausea, vomiting, diarrhea, dysuria. OBJECTIVE: Vital Signs Period Temp Pulse Resp BP Sys/Mike Pulse Ox Last 24 Hr 98.3 F-101.0 F 79-93 18-20 111-157/52-89 96-100 GENERAL: The patient is awake, alert, and fully oriented, in no acute distress. HEAD: Normal with no signs of trauma. EYES: PERRL, extraocular movements intact, sclera anicteric, conjunctiva clear. No ptosis. ENT: Ears normal, nares patent, oropharynx clear without exudates, moist mucous membranes. NECK: Trachea midline, full range of motion, supple. LUNGS: Breath sounds equal, clear to auscultation bilaterally, no wheezes, no crackles, no accessory muscle use. HEART: Regular rate and rhythm, S1, S2 without murmur, rub or gallop. ABDOMEN: obese Soft, tender flanks b/l nondistended, normoactive bowel sounds, no guarding, no rebound, no hepatosplenomegaly, no masses. EXTREMITIES: 2+ pulses, warm, well-perfused, no edema. NEUROLOGICAL: residual RUE weakness Cranial nerves II through XII grossly intact. Normal speech, gait not observed. PSYCH: Normal mood, normal affect. SKIN: Warm, dry, normal turgor, no rashes or lesions noted Laboratory Results - last 24 hr 04/05/17 04/05/17 04/05/17 19:50 19:50 21:12 WBC RBC Hgb Hct MCV MCH MCHC RDW Plt Count MPV Neutrophils % Lymphocytes % Monocytes % Eosinophils % Basophils % Sodium Potassium Chloride Carbon Dioxide Anion Gap BUN Creatinine Creat Clearance w eGFR POC Glucometer 163 Random Glucose Calcium Phosphorus Magnesium Total Bilirubin AST ALT Alkaline Phosphatase Creatine Kinase 123 Troponin I < 0.02 B-Natriuretic Peptide Total Protein Albumin Blood Type A POSITIVE Antibody Screen Positive H Antibody Identification NON-SPECIFIC COLD AGGLUTININS Antigen Identification Y 04/06/17 04/06/17 04/06/17 05:35 05:35 06:14 WBC 14.4 H RBC 3.05 L Hgb 8.5 L D Hct 25.7 L MCV 84.1 MCH 27.9 MCHC 33.2 RDW 15.2 Plt Count 143 MPV 8.7 Neutrophils % 88.3 H Lymphocytes % 7.8 L Monocytes % 3.6 L Eosinophils % 0.0 D Basophils % 0.3 Sodium 138 Potassium 4.3 Chloride 99 Carbon Dioxide 29 Anion Gap 10 BUN 68 H Creatinine 2.9 H Creat Clearance w eGFR 15.78 POC Glucometer 121 Random Glucose 100 D Calcium 8.9 Phosphorus 3.6 Magnesium 2.6 H Total Bilirubin 0.6 AST 29 ALT 22 Alkaline Phosphatase 66 D Creatine Kinase Troponin I B-Natriuretic Peptide 1335.01 H Total Protein 6.3 L Albumin 2.9 L Blood Type Antibody Screen Antibody Identification Antigen Identification 04/06/17 04/06/17 11:19 16:48 WBC RBC Hgb Hct MCV MCH MCHC RDW Plt Count MPV Neutrophils % Lymphocytes % Monocytes % Eosinophils % Basophils % Sodium Potassium Chloride Carbon Dioxide Anion Gap BUN Creatinine Creat Clearance w eGFR POC Glucometer 124 154 Random Glucose Calcium Phosphorus Magnesium Total Bilirubin AST ALT Alkaline Phosphatase Creatine Kinase Troponin I B-Natriuretic Peptide Total Protein Albumin Blood Type Antibody Screen Antibody Identification Antigen Identification Active Medications Generic Name Dose Route Start Last Admin Trade Name Freq PRN Reason Stop Dose Admin Acetaminophen 650 mg 04/05/17 17:56 04/06/17 10:05 Tylenol - PO 650 mg Q6H PRN Administration PAIN OR FEVER Albuterol Sulfate 1 amp 04/05/17 18:59 Ventolin 0.083% Nebulizer Soln - NEB Q6H PRN SHORT OF BREATH/WHEEZING Albuterol/Ipratropium 1 amp 04/06/17 12:00 04/06/17 11:01 Duoneb - NEB 1 amp QIDR IWONA Administration Amlodipine Besylate 10 mg 04/06/17 10:00 04/06/17 10:05 Norvasc - PO 10 mg DAILY IWONA Administration Aspirin 81 mg 04/06/17 10:00 04/06/17 10:05 Asa - PO 81 mg DAILY IWONA Administration Atorvastatin Calcium 40 mg 04/05/17 22:00 04/05/17 21:02 Lipitor - PO 40 mg HS IWONA Administration Docusate Sodium 100 mg 04/06/17 10:00 04/06/17 10:05 Colace - PO 100 mg DAILY IWONA Administration Heparin Sodium (Porcine) 5,000 unit 04/05/17 22:00 07/10/17 10:05 Heparin - SQ 5,000 unit BID IWONA Administration Ceftriaxone Sodium 100 mls @ 200 mls/hr 04/06/17 10:00 04/06/17 10:05 Rocephin 2gm Ivpb (Pre-Docked) IVPB 200 mls/hr DAILY IWONA Administration Insulin Aspart 1 vial 04/05/17 22:00 04/06/17 16:51 Novolog Vial Sliding Scale - SQ 2 units ACHS IWONA Administration Protocol Insulin Detemir 25 units 04/05/17 22:00 04/05/17 23:24 Levemir Vial SQ Not Given HS IWONA Isosorbide Mononitrate 30 mg 04/06/17 10:00 04/06/17 10:05 Imdur - PO 30 mg DAILY IWONA Administration Levothyroxine Sodium 88 mcg 04/06/17 07:00 04/06/17 06:19 Synthroid - PO 88 mcg AM IWONA Administration Nystatin 1 applic 04/06/17 10:00 04/06/17 17:23 Mycostatin Cream - TP 1 applic QID IWONA Administration ASSESSMENT/PLAN: This is a 76 y/o F with PMH obesity, cva (with residual right sided weakness), asthma, ckd, cad (s/p cardiac cath), DM, HTN, thyroid disease, GI bleed with anemia (s/p transfusion in the past) who presented to the ED with left abdominal and flank pain. #Sepsis -likely secondary to UTI -vitals in ED: temp 102.5, BP 138/90, HR 71, O2 sat 100% -in ED, pt received 1 dose Vanco 250mg IVPB, NS 2600ml, acetaminophen 1000mg IVPB, UA (+1 prot, +1 blood, +1 LE, RBC < 1, WBC 15), urine culture, blood culture -Blood cultures show Group B Strep. Repeat cultures ordered -Acetaminophen 650mg Q6H PRN -Ceftriaxone increased to 2gm Daily -Nephro consult (Dr. Zamorano) appreciated. Recs renal u/s, upcr, no nephrotoxic Rx , -Renal U/S pending #DM -ISS -Levemir 25u SQ HS -pending A1c #HTN -Amlodipine 10mg PO Daily #CAD -Lipitor 40mg PO HS -Isosorbide Mononitrate 30mg PO Daily -ASA 81mg PO Daily -Previous Echo shows normal LVEF #Asthma/COPD -Albuterol Neb 0.083% Q6H PRN -Singulair 10mg PO HS #Hypothyroid -Synthroid 88mcg PO AM #Constipation -Colace 100mg PO Daily #FEN -NS 50/hr x 1 bag -high BUN/Hydraulic Riveter likely 2/2 CKD -soft diet #Dispo -Admit to Med/Surg Pharmacy called: ASA 81mg daily Isosorbide 60mg daily Singulair 10mg daily Simbalta 30mg daily Lasix 40mg daily Norvasc 5mg daily Lipitor 40mg daily Synthroid 88mg daily Carvedilol 25mg BID Levemir 32 units in am Duoneb 6.5/3mg Q daily PRN Visit type - Emergency Visit Emergency Visit: Yes ED Registration Date: 04/05/17 Care time: The patient presented to the Emergency Department on the above date and was hospitalized for further evaluation of their emergent condition. - New Patient This patient is new to me today: Yes Date on this admission: 04/07/17 - Critical Care Critical Care patient: No
--- NOTE | 2017-04-06 18:31 | CONSULT ---
Consult Consult Specialty:: infectious diseases Reason for Consultation:: fever,sepsis - History of Present Illness Chief Complaint: weakness,fever bilateral flank pain. left more than right History of Present Illness: 76 y/o F with PMH obesity, cva ), asthma, ckd, cad (s/p cardiac cath), DM, HTN, hypothyroidism, GI bleed with anemia admitted with left abdominal and flank pain. and fever with weakness and chills Patient currently states that her pain is improving patient has been following with nephrology and does not remember what was told to her patient still feels weak and seems to feel that she is not doing well Pt denies any dysuriea, ABd pain, N/V/D or flank pain today. No chest pain or sob. No recent NSAID use. No outpatient Abx use. Reports good urine output. No Confusion, lethargy, weakness. 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 Cardio/Vascular: Yes: HTN, Hyperlipdemia Pulmonary: Yes: COPD Gastrointestinal: Yes: Constipation, GI Bleed Renal/: Yes: Renal Inusuff Endocrine: Yes: Diabetes Mellitus, Hypothyroidism - Alcohol/Substance Use Hx Alcohol Use: No - Smoking History Smoking history: Never smoked Have you smoked in the past 12 months: No Aproximately how many cigarettes per day: 0 If you are a former smoker, when did you quit?: 1999 - Social History Usual Living Arrangement: Other (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) ADL: Support Services History of Recent Travel: No Home Medications - Allergies Allergies/Adverse Reactions: Allergies Allergy/AdvReac Type Severity Reaction Status Date / Time codeine [Codeine] Allergy Severe Hives Verified 04/05/17 12:15 Iodine and Iodide Containing Allergy Verified 04/05/17 12:15 Produc nuts Allergy Mild Uncoded 04/05/17 12:15 - Home Medications Home Medications: Ambulatory Orders Atorvastatin Ca [Lipitor] 40 mg PO HS #7 tablet 08/05/12 Amlodipine Besylate [Norvasc -] 10 mg PO DAILY 03/02/16 Docusate Sodium [Colace -] 100 mg PO DAILY 08/09/16 Insulin Aspart [Novolog Flexpen] 100 unit SQ ASDIR 08/09/16 Insulin (Levemir) [Levemir Vial] 25 units SQ HS ml 08/27/16 Isosorbide Mononitrate [Imdur -] 30 mg PO DAILY tab.sr.24h 08/27/16 Levothyroxine [Synthroid -] 88 mcg PO AM tablet 08/27/16 Aspirin [ASA -] 81 mg PO DAILY 04/05/17 Family Disease History - Family Disease History Family Disease History: CA: Mother (Breast), Other: Father ( in an MVA) Review of Systems - Review of Systems Constitutional: reports: Chills, Fever Eyes: reports: No Symptoms HENT: reports: No Symptoms Neck: reports: No Symptoms Cardiovascular: reports: No Symptoms Respiratory: reports: No Symptoms Gastrointestinal: reports: No Symptoms Genitourinary: reports: Flank Pain (l more thjan right) Musculoskeletal: reports: No Symptoms Neurological: reports: No Symptoms Endocrine: reports: No Symptoms Hematology/Lymphatic: reports: No Symptoms Psychiatric: reports: No Symptoms Physical Exam Vital Signs: Vital Signs Temperature 98.3 F 04/06/17 14:47 Pulse Rate 79 04/06/17 14:47 Respiratory Rate 20 04/06/17 14:47 Blood Pressure 114/52 04/06/17 14:47 O2 Sat by Pulse Oximetry (%) 96 04/06/17 10:00 Constitutional: Yes: Well Nourished, Mild Distress, Obese Eyes: Yes: Conjunctiva Clear Neck: Yes: Supple Cardiovascular: Yes: S1, S2 Respiratory: Yes: Regular, CTA Bilaterally Gastrointestinal: Yes: Normal Bowel Sounds, Soft Renal/: No: CVA Tenderness - Left, CVA Tenderness - Right Musculoskeletal: Yes: WNL Extremities: Yes: WNL Integumentary: Yes: WNL Neurological: Yes: Alert, Oriented Psychiatric: Yes: Alert, Oriented Labs: CBC, BMP 04/06/17 05:35 04/06/17 05:35 Imaging - Results Chest X-ray: Report Reviewed, Image Reviewed Assessment/Plan patient evaluated patient is now bacteremic i doubt that this coming from the kidneys i am worried about other issues Problem List - Problems (1) CKD (chronic kidney disease) Code(s): N18.9 - CHRONIC KIDNEY DISEASE, UNSPECIFIED (2) Sepsis Code(s): A41.9 - SEPSIS, UNSPECIFIED ORGANISM Qualifiers: Sepsis type: Escherichia coli Qualified Code(s): A41.51 - Sepsis due to Escherichia coli [E. coli] (3) UTI (urinary tract infection) Code(s): N39.0 - URINARY TRACT INFECTION, SITE NOT SPECIFIED Qualifiers: Urinary tract infection type: acute cystitis Hematuria presence: without hematuria Qualified Code(s): N30.00 - Acute cystitis without hematuria (4) Anemia Code(s): D64.9 - ANEMIA, UNSPECIFIED Qualifiers: Iron deficiency anemia type: chronic blood loss (5) Diabetes Code(s): E11.9 - TYPE 2 DIABETES MELLITUS WITHOUT COMPLICATIONS (6) Elevated BUN Code(s): R79.9 - ABNORMAL FINDING OF BLOOD CHEMISTRY, UNSPECIFIED (7) Elevated serum creatinine Code(s): R79.89 - OTHER SPECIFIED ABNORMAL FINDINGS OF BLOOD CHEMISTRY (8) HTN (hypertension) Code(s): I10 - ESSENTIAL (PRIMARY) HYPERTENSION (9) CVA (cerebral vascular accident) Code(s): I63.9 - CEREBRAL INFARCTION, UNSPECIFIED (10) Proteinuria Code(s): R80.9 - PROTEINURIA, UNSPECIFIED (11) Leukocytosis Code(s): D72.829 - ELEVATED WHITE BLOOD CELL COUNT, UNSPECIFIED plan pls get echo on the patient would closely watch the wbc and fevers if patient continues to have high fever or increase in wbc --change abx to unasyn rest as per primary await for reports to be back
--- NOTE | 2017-04-06 19:21 | PN ---
Teaching Attending Note Name of Resident: Mark Garcia ATTENDING PHYSICIAN STATEMENT I saw and evaluated the patient. I reviewed the resident's note and discussed the case with the resident. I agree with the resident's findings and plan as documented. SUBJECTIVE: Patient is comfortable, no rigors today, afebrile OBJECTIVE: Vital Signs Temperature 98.3 F 04/06/17 14:47 Pulse Rate 79 04/06/17 14:47 Respiratory Rate 20 04/06/17 14:47 Blood Pressure 114/52 04/06/17 14:47 O2 Sat by Pulse Oximetry (%) 96 04/06/17 10:00 CBCD WBC 14.4 K/mm3 (4.0-10.0) H 04/06/17 05:35 RBC 3.05 M/mm3 (3.60-5.2) L 04/06/17 05:35 Hgb 8.5 GM/dL (10.7-15.3) L D 04/06/17 05:35 Hct 25.7 % (32.4-45.2) L 04/06/17 05:35 MCV 84.1 fl (80-96) 04/06/17 05:35 MCHC 33.2 g/dl (32.0-36.0) 04/06/17 05:35 RDW 15.2 % (11.6-15.6) 04/06/17 05:35 Plt Count 143 K/MM3 (134-434) 04/06/17 05:35 MPV 8.7 fl (7.5-11.1) 04/06/17 05:35 CMP Sodium 138 mmol/L (136-145) 04/06/17 05:35 Potassium 4.3 mmol/L (3.5-5.1) 04/06/17 05:35 Chloride 99 mmol/L (98-107) 04/06/17 05:35 Carbon Dioxide 29 mmol/L (21-32) 04/06/17 05:35 Anion Gap 10 (8-16) 04/06/17 05:35 BUN 68 mg/dL (7-18) H 04/06/17 05:35 Creatinine 2.9 mg/dL (0.55-1.02) H 04/06/17 05:35 Creat Clearance w eGFR 15.78 (>60) 04/06/17 05:35 Random Glucose 100 mg/dL (74-106) D 04/06/17 05:35 Calcium 8.9 mg/dL (8.5-10.1) 04/06/17 05:35 Total Bilirubin 0.6 mg/dL (0.2-1.0) 04/06/17 05:35 AST 29 U/L (15-37) 04/06/17 05:35 ALT 22 U/L (12-78) 04/06/17 05:35 Alkaline Phosphatase 66 U/L (45-117) D 04/06/17 05:35 Total Protein 6.3 g/dl (6.4-8.2) L 04/06/17 05:35 Albumin 2.9 g/dl (3.4-5.0) L 04/06/17 05:35 CARDIAC ENZYMES Creatine Kinase 123 IU/L (26-192) 04/05/17 19:50 Troponin I < 0.02 ng/ml (0.00-0.05) 04/05/17 19:50 Current Medications Generic Name Dose Route Start Last Admin Trade Name Freq PRN Reason Stop Dose Admin Acetaminophen 650 mg 04/05/17 17:56 04/06/17 10:05 Tylenol - PO 650 mg Q6H PRN Administration PAIN OR FEVER Albuterol Sulfate 1 amp 04/05/17 18:59 Ventolin 0.083% Nebulizer Soln - NEB Q6H PRN SHORT OF BREATH/WHEEZING Albuterol/Ipratropium 1 amp 04/06/17 12:00 04/06/17 18:47 Duoneb - NEB 1 amp QIDR [facility] Administration Amlodipine Besylate 10 mg 04/06/17 10:00 04/06/17 10:05 Norvasc - PO 10 mg DAILY [facility] Administration Aspirin 81 mg 04/06/17 10:00 04/06/17 10:05 Asa - PO 81 mg DAILY [facility] Administration Atorvastatin Calcium 40 mg 04/05/17 22:00 04/05/17 21:02 Lipitor - PO 40 mg HS [facility] Administration Docusate Sodium 100 mg 04/06/17 10:00 04/06/17 10:05 Colace - PO 100 mg DAILY [facility] Administration Heparin Sodium (Porcine) 5,000 unit 04/05/17 22:00 04/06/17 10:05 Heparin - SQ 5,000 unit BID [facility] Administration Ceftriaxone Sodium 100 mls @ 200 mls/hr 04/06/17 10:00 04/06/17 10:05 Rocephin 2gm Ivpb (Pre-Docked) IVPB 200 mls/hr DAILY [facility] Administration Insulin Aspart 1 vial 04/05/17 22:00 04/06/17 16:51 Novolog Vial Sliding Scale - SQ 2 units ACHS [facility] Administration Protocol Insulin Detemir 25 units 04/05/17 22:00 04/05/17 23:24 Levemir Vial SQ Not Given HS [facility] Isosorbide Mononitrate 30 mg 04/06/17 10:00 04/06/17 10:05 Imdur - PO 30 mg DAILY [facility] Administration Levothyroxine Sodium 88 mcg 04/06/17 07:00 04/06/17 06:19 Synthroid - PO 88 mcg AM [facility] Administration Montelukast Sodium 10 mg 04/06/17 22:00 Singulair - PO HS [facility] Nystatin 1 applic 04/06/17 10:00 04/06/17 17:23 Mycostatin Cream - TP 1 applic QID [facility] Administration Home Medications Medication Instructions Recorded Atorvastatin Ca [Lipitor] 40 mg PO HS #7 tablet 08/05/12 Amlodipine Besylate [Norvasc -] 10 mg PO DAILY 03/02/16 Docusate Sodium [Colace -] 100 mg PO DAILY 08/09/16 Insulin Aspart [Novolog Flexpen] 100 unit SQ ASDIR 08/09/16 Insulin (Levemir) [Levemir Vial] 25 units SQ HS ml 08/27/16 Isosorbide Mononitrate [Imdur -] 30 mg PO DAILY tab.sr.24h 08/27/16 Levothyroxine [Synthroid -] 88 mcg PO AM tablet 08/27/16 Aspirin [ASA -] 81 mg PO DAILY 04/05/17 Montelukast Na [Singulair -] 10 PO DAILY 04/06/17 PE: per resident's note Microbiology 04/05/17 12:18 Blood - Peripheral Venous Blood Culture - Preliminary Beta Hem Streptococcus Group G 04/05/17 12:18 Blood - Peripheral Venous Blood Culture - Preliminary Beta Hem Streptococcus Group G Echo 08/13/17: Left ventricular Ejection fraction normal, left ventricular size , thicknes anf unction normal. MildMR and TR, right ventricular systolic pressure normal. ASSESSMENT AND PLAN: Patient is a 76-year-old female with a significant medical history of CVA ( residual R-saima paresis, slurred speech), Asthma, DM Type II, COPD, CKD Stage 4 , Pneumonia, PVD, HTN, Chronic R- lower extremity edema presented to the ED via EMS with the chief complaints of Left upper quadrant pain x 2 days. # Acute Sepsis responding to Rocephin , Group G beta strept. Bacteremia waiting for sensitivity , discussed with ID would like to get 2Decho. # Acute UTI responding to Rocephin 2gm IV daily . ID consult Dr.Bobde martinezsegrisel with t,ylenol 1gm q6h prn #Acute over chronic CKD stage IV with Creatinine 2.9 (baseline around 2.5), Nephrology consult # Normocytic anemia monitor possible due to CKD # Hx of CVA (residual right hemiparesis); No signs/symptoms of new stroke # Hypertension-controlled; Norvasc 10mg PO Daily # Hx of COPD on albuterol treatment continue # CAD (s/p cath but no stents) continue Aspirin 81mg Daily # DM; HbA1c ordered for am; Levemir 25U sq HS; BGM, ISS ACHS # Hypothyroidism continue Levothyroxine 88 mcg PO AM DVT Px: Heparin sq
[2017-04-06] MEDS: MONTELUKAST NA 10 MG TABLET PO SCH (23:59)
[2017-04-06] MEDS: ATORVASTATIN CA 40 MG TABLET (FP) PO SCH (23:59)
[2017-04-07] MEDS: INSULIN DETEMIR 100 UNITS/ML MDV SQ SCH ×2 (00:12→22:41)
[2017-04-07] MEDS: INSULIN SLIDING SCALE (NOVOLOG) 1 VIAL SQ SCH ×5 (00:13→22:54)
[2017-04-07] MEDS: ALBUTEROL SO4 2.5/IPRATROPIUM 0.5 INH SOL 3 ML VIAL.NEB. NEB SCH ×5 (00:15→23:25)
[2017-04-07] MEDS: LEVOTHYROXINE NA 88 MCG TABLET (FP) PO SCH (07:12)
[2017-04-07 08:01] LABS: BASOPHIL 0.6 % (0-2.0); EOSINOPHIL 1.7 % (0-4.5); MCH 27.9 pg (25.7-33.7); MCHC 32.9 g/dl (32.0-36.0); MEAN CELL VOLUME 84.8 fl (80-96); MEAN PLT VOLUME 9.1 fl (7.5-11.1); NEUTROPHILS 75.2 % (42.8-82.8); PLATELET COUNT 141 K/MM3 (134-434); RDW 15.4 % (11.6-15.6); WHITE BLOOD COUNT 10.3 K/mm3 (4.0-10.0)
[2017-04-07 08:09] LABS: ALBUMIN 2.8 g/dl (3.4-5.0); ALK PHOS 78 U/L (45-117); ANION GAP 8 (8-16); BILIRUBIN,TOTAL 0.5 mg/dL (0.2-1.0); CALCIUM 8.8 mg/dL (8.5-10.1); CO2 30 mmol/L (21-32); CREATININE 2.9 mg/dL (0.55-1.02); GLUCOSE,RANDOM 90 mg/dL (74-106); MAGNESIUM 2.9 mg/dL (1.8-2.4); PHOSPHOROUS 3.5 mg/dL (2.5-4.9); SGOT/AST 37 U/L (15-37); SGPT/ALT 26 U/L (12-78); TOT PROT 6.2 g/dl (6.4-8.2)
[2017-04-07] MEDS ORDERED: PT OWN MED DRAWER 7, Y5N ONE (10:04)
[2017-04-07] MEDS: HEPARIN NA (PORCINE) 5,000 UNITS/ML 1ML VIAL SQ SCH ×2 (10:07→22:40)
[2017-04-07] MEDS: ASPIRIN 81 MG CHEWABLE TABLETS PO SCH (10:07)
[2017-04-07] MEDS: DOCUSATE SODIUM 100 MG CAPSULE (FP) PO SCH (10:07)
[2017-04-07] MEDS: ISOSORBIDE MONONITRATE 30 MG TAB.SR.24H (FP) PO SCH (10:08)
[2017-04-07] MEDS: amLODIPine BESYLATE 10 MG TABLET (FP) PO SCH (10:08)
[2017-04-07] MEDS: NYSTATIN 100,000 UNIT/GM TOPICAL CREAM 15 GM TUBE TP SCH ×5 (10:15→22:55)
[2017-04-07] MEDS: CEFTRIAXONE 100 ML IVPB SCH (12:49)
--- NOTE | 2017-04-07 13:57 | PN ---
Physical Exam: SUBJECTIVE: Patient seen and examined at bedside. No acute events overnight. Pt denies headache, cp, sob, abd pain, nausea, vomiting, diarrhea, dysuria, fever. OBJECTIVE: Vital Signs Period Temp Pulse Resp BP Sys/Mike Pulse Ox Last 24 Hr 98.3 F-99.5 F 79-88 20-22 96-122/52-65 94-96 GENERAL: The patient is awake, alert, and fully oriented, in no acute distress. HEAD: Normal with no signs of trauma. EYES: PERRL, extraocular movements intact, sclera anicteric, conjunctiva clear. No ptosis. ENT: Ears normal, nares patent, oropharynx clear without exudates, moist mucous membranes. NECK: Trachea midline, full range of motion, supple. LUNGS: Breath sounds equal, clear to auscultation bilaterally, no wheezes, no crackles, no accessory muscle use. HEART: Regular rate and rhythm, S1, S2 without murmur, rub or gallop. ABDOMEN: Soft, nontender, nondistended, normoactive bowel sounds, no guarding, no rebound, no hepatosplenomegaly, no masses. EXTREMITIES: 2+ pulses, warm, well-perfused, no edema. NEUROLOGICAL: residual RUE weakness Cranial nerves II through XII grossly intact. Normal speech, gait not observed. PSYCH: Normal mood, normal affect. SKIN: Warm, dry, normal turgor, no rashes or lesions noted Laboratory Results - last 24 hr 04/06/17 04/07/17 04/07/17 16:48 00:11 05:35 WBC 10.3 H RBC 2.95 L Hgb 8.2 L Hct 25.0 L MCV 84.8 MCH 27.9 MCHC 32.9 RDW 15.4 Plt Count 141 MPV 9.1 Neutrophils % 75.2 Lymphocytes % 15.6 D Monocytes % 6.9 D Eosinophils % 1.7 D Basophils % 0.6 Sodium Potassium Chloride Carbon Dioxide Anion Gap BUN Creatinine Creat Clearance w eGFR POC Glucometer 154 145 Random Glucose Calcium Phosphorus Magnesium Total Bilirubin AST ALT Alkaline Phosphatase Total Protein Albumin 04/07/17 04/07/17 05:35 07:11 WBC RBC Hgb Hct MCV MCH MCHC RDW Plt Count MPV Neutrophils % Lymphocytes % Monocytes % Eosinophils % Basophils % Sodium 136 Potassium 3.9 Chloride 98 Carbon Dioxide 30 Anion Gap 8 BUN 66 H Creatinine 2.9 H Creat Clearance w eGFR 15.78 POC Glucometer 96 Random Glucose 90 Calcium 8.8 Phosphorus 3.5 Magnesium 2.9 H Total Bilirubin 0.5 AST 37 D ALT 26 Alkaline Phosphatase 78 Total Protein 6.2 L Albumin 2.8 L Active Medications Generic Name Dose Route Start Last Admin Trade Name Freq PRN Reason Stop Dose Admin Acetaminophen 650 mg 04/05/17 17:56 04/06/17 10:05 Tylenol - PO 650 mg Q6H PRN Administration PAIN OR FEVER Albuterol Sulfate 1 amp 04/05/17 18:59 Ventolin 0.083% Nebulizer Soln - NEB Q6H PRN SHORT OF BREATH/WHEEZING Albuterol/Ipratropium 1 amp 04/06/17 12:00 04/07/17 11:05 Duoneb - NEB Not Given QIDR [facility] Amlodipine Besylate 10 mg 04/06/17 10:00 04/07/17 10:08 Norvasc - PO 10 mg DAILY [facility] Administration Aspirin 81 mg 04/06/17 10:00 04/07/17 10:07 Asa - PO 81 mg DAILY [facility] Administration Atorvastatin Calcium 40 mg 04/05/17 22:00 04/06/17 23:59 Lipitor - PO 40 mg HS [facility] Administration Docusate Sodium 100 mg 04/06/17 10:00 04/07/17 10:07 Colace - PO Not Given DAILY [facility] Heparin Sodium (Porcine) 5,000 unit 04/05/17 22:00 04/07/17 10:07 Heparin - SQ 5,000 unit BID [facility] Administration Ceftriaxone Sodium 100 mls @ 200 mls/hr 04/06/17 10:00 04/07/17 12:49 Rocephin 2gm Ivpb (Pre-Docked) IVPB 200 mls/hr DAILY [facility] Administration Insulin Aspart 1 vial 04/05/17 22:00 04/07/17 12:04 Novolog Vial Sliding Scale - SQ Not Given ACHS [facility] Protocol Insulin Detemir 25 units 04/05/17 22:00 04/07/17 00:12 Levemir Vial SQ 25 units HS [facility] Administration Isosorbide Mononitrate 30 mg 04/06/17 10:00 04/07/17 10:08 Imdur - PO 30 mg DAILY [facility] Administration Levothyroxine Sodium 88 mcg 04/06/17 07:00 04/07/17 07:12 Synthroid - PO 88 mcg AM [facility] Administration Montelukast Sodium 10 mg 04/06/17 22:00 04/06/17 23:59 Singulair - PO 10 mg HS [facility] Administration Nystatin 1 applic 04/06/17 10:00 04/07/17 00:00 Mycostatin Cream - TP 1 applic QID [facility] Administration ASSESSMENT/PLAN: This is a 76 y/o F with PMH obesity, cva (with residual right sided weakness), asthma, ckd, cad (s/p cardiac cath), DM, HTN, thyroid disease, GI bleed with anemia (s/p transfusion in the past) who presented to the ED with left abdominal and flank pain. #Sepsis -likely secondary to UTI -vitals in ED: temp 102.5, BP 138/90, HR 71, O2 sat 100% -in ED, pt received 1 dose Vanco 250mg IVPB, NS 2600ml, acetaminophen 1000mg IVPB, UA (+1 prot, +1 blood, +1 LE, RBC < 1, WBC 15), urine culture, blood culture -Blood cultures show Group B Strep. Repeat cultures ordered -Urine cultures show Lactose fermenting neg bacilli -Acetaminophen 650mg Q6H PRN -Ceftriaxone increased to 2gm Daily -Nephro consult (Dr. Zamorano) appreciated. Recs renal u/s, upcr, no nephrotoxic Rx , -Renal U/S pending -leukocytosis falling. will continue to monitor. 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
--- NOTE | 2017-04-07 14:02 | PN ---
Progress Note (short form) - Note Progress Note: Renal Follow up for CKD Pt seen and examined at the bedside awake and alert no acute complaints denies any SOB, CP, Abd pain, N/V/D reports that she is urinating Vital Signs Temperature 99.0 F 04/07/17 06:00 Pulse Rate 80 04/07/17 10:00 Respiratory Rate 20 04/07/17 10:00 Blood Pressure 96/60 04/07/17 10:00 O2 Sat by Pulse Oximetry (%) 94 L 04/07/17 09:00 Intake & Output 04/04/17 04/05/17 04/06/17 04/07/17 23:59 23:59 23:59 23:59 Intake Total 1150 560 Balance 1150 560 Weight 280 lb 280 lb Gen: NAD, awake and alert CVS: RRR, No M/R Lungs: CTA, no rales or wheeze Abd: soft, Obese, NT/ND ext: Trace edema in LE CBC, BMP 04/07/17 05:35 04/07/17 05:35 Laboratory Tests 08/22/16 04/05/17 04/05/17 06:30 09:00 14:35 MCV Calcium 8.6 Phosphorus Magnesium Albumin 2.3 L Urine Protein 1+ H Urine Blood 1+ H Ur Leukocyte Esterase 1+ H Stool Occult Blood Negative 04/07/17 04/07/17 05:35 05:35 MCV 84.8 Calcium 8.8 Phosphorus 3.5 Magnesium 2.9 H Albumin 2.8 L Urine Protein Urine Blood Ur Leukocyte Esterase Stool Occult Blood Current Medications Acetaminophen (Tylenol -) 650 mg PO Q6H PRN PRN Reason: PAIN OR FEVER Last Admin: 04/06/17 10:05 Dose: 650 mg Albuterol Sulfate (Ventolin 0.083% Nebulizer Soln -) 1 amp NEB Q6H PRN PRN Reason: SHORT OF BREATH/WHEEZING Albuterol/Ipratropium (Duoneb -) 1 amp NEB QIDR [facility] Last Admin: 04/07/17 11:05 Dose: Not Given Amlodipine Besylate (Norvasc -) 10 mg PO DAILY [facility] Last Admin: 04/07/17 10:08 Dose: 10 mg Aspirin (Asa -) 81 mg PO DAILY [facility] Last Admin: 04/07/17 10:07 Dose: 81 mg Atorvastatin Calcium (Lipitor -) 40 mg PO HS [facility] Last Admin: 04/06/17 23:59 Dose: 40 mg Docusate Sodium (Colace -) 100 mg PO DAILY [facility] Last Admin: 04/07/17 10:07 Dose: Not Given Heparin Sodium (Porcine) (Heparin -) 5,000 unit SQ BID [facility] Last Admin: 04/07/17 10:07 Dose: 5,000 unit Ceftriaxone Sodium (Rocephin 2gm Ivpb (Pre-Docked)) 100 mls @ 200 mls/hr IVPB DAILY [facility] Last Admin: 04/07/17 12:49 Dose: 200 mls/hr Insulin Aspart (Novolog Vial Sliding Scale -) 1 vial SQ ACHS [facility] PRN Reason: Protocol Last Admin: 04/07/17 12:04 Dose: Not Given Insulin Detemir (Levemir Vial) 25 units SQ HS [facility] Last Admin: 04/07/17 00:12 Dose: 25 units Isosorbide Mononitrate (Imdur -) 30 mg PO DAILY [facility] Last Admin: 04/07/17 10:08 Dose: 30 mg Levothyroxine Sodium (Synthroid -) 88 mcg PO AM [facility] Last Admin: 04/07/17 07:12 Dose: 88 mcg Montelukast Sodium (Singulair -) 10 mg PO HS [facility] Last Admin: 04/06/17 23:59 Dose: 10 mg Nystatin (Mycostatin Cream -) 1 applic TP QID [facility] Last Admin: 04/07/17 00:00 Dose: 1 applic 76 year old woman with PMhx of CKD Stage 4, Hypertension, DM, CVA who presented with complaints of fever and flank pain and admitted for SIRS/UTI with BUN/Cr of 68/2.9 #CKD stage 4 with subnephrotic proteinuria Etiology of CKD likely related to diabetic + hypertensive kidney disease Prior work up showed b/l atrophic kidneys, subnephrotic proteinuira, + RIANNA, Neg Anti DS DNA, normal Complements Renal function remains stable at this time Renal US and UPCR is pending No CLAY/ARB given low eGFR dose all meds for Cr Cl less then 20 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 coli] (3) UTI (urinary tract infection) Code(s): N39.0 - URINARY TRACT INFECTION, SITE NOT SPECIFIED Qualifiers: Urinary tract infection type: acute cystitis Hematuria presence: without hematuria Qualified Code(s): N30.00 - Acute cystitis without hematuria (4) Anemia Code(s): D64.9 - ANEMIA, UNSPECIFIED Qualifiers: Iron deficiency anemia type: chronic blood loss (5) Diabetes Code(s): E11.9 - TYPE 2 DIABETES MELLITUS WITHOUT COMPLICATIONS (6) Elevated BUN Code(s): R79.9 - ABNORMAL FINDING OF BLOOD CHEMISTRY, UNSPECIFIED (7) Elevated serum creatinine Code(s): R79.89 - OTHER SPECIFIED ABNORMAL FINDINGS OF BLOOD CHEMISTRY (8) HTN (hypertension) Code(s): I10 - ESSENTIAL (PRIMARY) HYPERTENSION (9) CVA (cerebral vascular accident) Code(s): I63.9 - CEREBRAL INFARCTION, UNSPECIFIED (10) Proteinuria Code(s): R80.9 - PROTEINURIA, UNSPECIFIED (11) Leukocytosis Code(s): D72.829 - ELEVATED WHITE BLOOD CELL COUNT, UNSPECIFIED
--- NOTE | 2017-04-07 15:39 | PN ---
Progress Note, Physician History of Present Illness: better has remained afebrile echo pending has been afebrile for some time - Current Medication List Current Medications: Active Medications Acetaminophen (Tylenol -) 650 mg PO Q6H PRN PRN Reason: PAIN OR FEVER Last Admin: 04/06/17 10:05 Dose: 650 mg Albuterol Sulfate (Ventolin 0.083% Nebulizer Soln -) 1 amp NEB Q6H PRN PRN Reason: SHORT OF BREATH/WHEEZING Albuterol/Ipratropium (Duoneb -) 1 amp NEB QIDR [facility] Last Admin: 04/07/17 11:05 Dose: Not Given Amlodipine Besylate (Norvasc -) 10 mg PO DAILY [facility] Last Admin: 04/07/17 10:08 Dose: 10 mg Aspirin (Asa -) 81 mg PO DAILY [facility] Last Admin: 04/07/17 10:07 Dose: 81 mg Atorvastatin Calcium (Lipitor -) 40 mg PO HS [facility] Last Admin: 04/06/17 23:59 Dose: 40 mg Docusate Sodium (Colace -) 100 mg PO DAILY [facility] Last Admin: 04/07/17 10:07 Dose: Not Given Heparin Sodium (Porcine) (Heparin -) 5,000 unit SQ BID [facility] Last Admin: 04/07/17 10:07 Dose: 5,000 unit Ceftriaxone Sodium (Rocephin 2gm Ivpb (Pre-Docked)) 100 mls @ 200 mls/hr IVPB DAILY [facility] Last Admin: 04/07/17 12:49 Dose: 200 mls/hr Insulin Aspart (Novolog Vial Sliding Scale -) 1 vial SQ ACHS [facility] PRN Reason: Protocol Last Admin: 04/07/17 12:04 Dose: Not Given Insulin Detemir (Levemir Vial) 25 units SQ HS [facility] Last Admin: 04/07/17 00:12 Dose: 25 units Isosorbide Mononitrate (Imdur -) 30 mg PO DAILY [facility] Last Admin: 04/07/17 10:08 Dose: 30 mg Levothyroxine Sodium (Synthroid -) 88 mcg PO AM [facility] Last Admin: 04/07/17 07:12 Dose: 88 mcg Montelukast Sodium (Singulair -) 10 mg PO HS [facility] Last Admin: 04/06/17 23:59 Dose: 10 mg Nystatin (Mycostatin Cream -) 1 applic TP QID [facility] Last Admin: 04/07/17 14:37 Dose: 1 applic - Objective Vital Signs: Vital Signs Temperature 99.0 F 04/07/17 06:00 Pulse Rate 80 04/07/17 10:00 Respiratory Rate 20 04/07/17 10:00 Blood Pressure 96/60 04/07/17 10:00 O2 Sat by Pulse Oximetry (%) 95 04/07/17 14:14 Constitutional: Yes: No Distress, Calm Cardiovascular: Yes: Regular Rate and Rhythm Respiratory: Yes: Regular Gastrointestinal: Yes: Normal Bowel Sounds, Soft Musculoskeletal: Yes: WNL Extremities: Yes: WNL Neurological: Yes: Alert, Oriented Psychiatric: Yes: Alert Labs: CBC, BMP 04/07/17 05:35 04/07/17 05:35 INR, PTT INR 1.27 (0.82-1.09) H 04/05/17 12:20 Assessment/Plan patient evaluated patient is now bacteremic i doubt that this coming from the kidneys i am worried about other issues Problem List - Problems (1) CKD (chronic kidney disease) Code(s): N18.9 - CHRONIC KIDNEY DISEASE, UNSPECIFIED (2) Sepsis Code(s): A41.9 - SEPSIS, UNSPECIFIED ORGANISM Qualifiers: Sepsis type: Escherichia coli Qualified Code(s): A41.51 - Sepsis due to Escherichia coli [E. coli] (3) UTI (urinary tract infection) Code(s): N39.0 - URINARY TRACT INFECTION, SITE NOT SPECIFIED Qualifiers: Urinary tract infection type: acute cystitis Hematuria presence: without hematuria Qualified Code(s): N30.00 - Acute cystitis without hematuria (4) Anemia Code(s): D64.9 - ANEMIA, UNSPECIFIED Qualifiers: Iron deficiency anemia type: chronic blood loss (5) Diabetes Code(s): E11.9 - TYPE 2 DIABETES MELLITUS WITHOUT COMPLICATIONS (6) Elevated BUN Code(s): R79.9 - ABNORMAL FINDING OF BLOOD CHEMISTRY, UNSPECIFIED (7) Elevated serum creatinine Code(s): R79.89 - OTHER SPECIFIED ABNORMAL FINDINGS OF BLOOD CHEMISTRY (8) HTN (hypertension) Code(s): I10 - ESSENTIAL (PRIMARY) HYPERTENSION (9) CVA (cerebral vascular accident) Code(s): I63.9 - CEREBRAL INFARCTION, UNSPECIFIED (10) Proteinuria Code(s): R80.9 - PROTEINURIA, UNSPECIFIED (11) Leukocytosis Code(s): D72.829 - ELEVATED WHITE BLOOD CELL COUNT, UNSPECIFIED plan continue current mgmt awaiting echo repeat blood cx pending incentive [place]
--- NOTE | 2017-04-07 18:49 | PN ---
Teaching Attending Note Name of Resident: Mark Garcia ATTENDING PHYSICIAN STATEMENT I saw and evaluated the patient. I reviewed the resident's note and discussed the case with the resident. I agree with the resident's findings and plan as documented. SUBJECTIVE: Patient feels very comfortable would like to get discharged. OBJECTIVE: Vital Signs Temperature 98.0 F 04/07/17 14:40 Pulse Rate 84 04/07/17 14:40 Respiratory Rate 22 04/07/17 14:40 Blood Pressure 128/55 04/07/17 14:40 O2 Sat by Pulse Oximetry (%) 95 04/07/17 14:14 CBCD WBC 10.3 K/mm3 (4.0-10.0) H 04/07/17 05:35 RBC 2.95 M/mm3 (3.60-5.2) L 04/07/17 05:35 Hgb 8.2 GM/dL (10.7-15.3) L 04/07/17 05:35 Hct 25.0 % (32.4-45.2) L 04/07/17 05:35 MCV 84.8 fl (80-96) 04/07/17 05:35 MCHC 32.9 g/dl (32.0-36.0) 04/07/17 05:35 RDW 15.4 % (11.6-15.6) 04/07/17 05:35 Plt Count 141 K/MM3 (134-434) 04/07/17 05:35 MPV 9.1 fl (7.5-11.1) 04/07/17 05:35 CMP Sodium 136 mmol/L (136-145) 04/07/17 05:35 Potassium 3.9 mmol/L (3.5-5.1) 04/07/17 05:35 Chloride 98 mmol/L (98-107) 04/07/17 05:35 Carbon Dioxide 30 mmol/L (21-32) 04/07/17 05:35 Anion Gap 8 (8-16) 04/07/17 05:35 BUN 66 mg/dL (7-18) H 04/07/17 05:35 Creatinine 2.9 mg/dL (0.55-1.02) H 04/07/17 05:35 Creat Clearance w eGFR 15.78 (>60) 04/07/17 05:35 Random Glucose 90 mg/dL (74-106) 04/07/17 05:35 Calcium 8.8 mg/dL (8.5-10.1) 04/07/17 05:35 Total Bilirubin 0.5 mg/dL (0.2-1.0) 04/07/17 05:35 AST 37 U/L (15-37) D 04/07/17 05:35 ALT 26 U/L (12-78) 04/07/17 05:35 Alkaline Phosphatase 78 U/L (45-117) 04/07/17 05:35 Total Protein 6.2 g/dl (6.4-8.2) L 04/07/17 05:35 Albumin 2.8 g/dl (3.4-5.0) L 04/07/17 05:35 CARDIAC ENZYMES Creatine Kinase 123 IU/L (26-192) 04/05/17 19:50 Troponin I < 0.02 ng/ml (0.00-0.05) 04/05/17 19:50 Current Medications Generic Name Dose Route Start Last Admin Trade Name Freq PRN Reason Stop Dose Admin Acetaminophen 650 mg 04/05/17 17:56 04/06/17 10:05 Tylenol - PO 650 mg Q6H PRN Administration PAIN OR FEVER Albuterol Sulfate 1 amp 04/05/17 18:59 Ventolin 0.083% Nebulizer Soln - NEB Q6H PRN SHORT OF BREATH/WHEEZING Albuterol/Ipratropium 1 amp 04/06/17 12:00 04/07/17 18:09 Duoneb - NEB 1 amp QIDR [facility] Administration Amlodipine Besylate 10 mg 04/06/17 10:00 04/07/17 10:08 Norvasc - PO 10 mg DAILY [facility] Administration Aspirin 81 mg 04/06/17 10:00 04/07/17 10:07 Asa - PO 81 mg DAILY [facility] Administration Atorvastatin Calcium 40 mg 04/05/17 22:00 04/06/17 23:59 Lipitor - PO 40 mg HS [facility] Administration Docusate Sodium 100 mg 04/06/17 10:00 04/07/17 10:07 Colace - PO Not Given DAILY [facility] Heparin Sodium (Porcine) 5,000 unit 04/05/17 22:00 04/07/17 10:07 Heparin - SQ 5,000 unit BID [facility] Administration Ceftriaxone Sodium 100 mls @ 200 mls/hr 04/06/17 10:00 04/07/17 12:49 Rocephin 2gm Ivpb (Pre-Docked) IVPB 200 mls/hr DAILY [facility] Administration Insulin Aspart 1 vial 04/05/17 22:00 04/07/17 17:16 Novolog Vial Sliding Scale - SQ Not Given ACHS [facility] Protocol Insulin Detemir 25 units 04/05/17 22:00 04/07/17 00:12 Levemir Vial SQ 25 units HS [facility] Administration Isosorbide Mononitrate 30 mg 04/06/17 10:00 04/07/17 10:08 Imdur - PO 30 mg DAILY [facility] Administration Levothyroxine Sodium 88 mcg 04/06/17 07:00 04/07/17 07:12 Synthroid - PO 88 mcg AM [facility] Administration Montelukast Sodium 10 mg 04/06/17 22:00 04/06/17 23:59 Singulair - PO 10 mg HS [facility] Administration Nystatin 1 applic 04/06/17 10:00 04/07/17 14:37 Mycostatin Cream - TP 1 applic QID [facility] Administration Home Medications Medication Instructions Recorded RX: Atorvastatin Ca [Lipitor] 40 mg PO HS #7 tablet 08/05/12 RX: Amlodipine Besylate [Norvasc -] 10 mg PO DAILY 03/02/16 Docusate Sodium [Colace -] 100 mg PO DAILY 08/09/16 RX: Insulin Aspart [Novolog 100 unit SQ ASDIR 08/09/16 Flexpen] RX: Insulin (Levemir) [Levemir 25 units SQ HS ml 08/27/16 Vial] RX: Isosorbide Mononitrate [Imdur 30 mg PO DAILY tab.sr.24h 08/27/16 -] RX: Levothyroxine [Synthroid -] 88 mcg PO AM tablet 08/27/16 Aspirin [ASA -] 81 mg PO DAILY 04/05/17 Montelukast Na [Singulair -] 10 PO DAILY 04/06/17 PE: per resident's note old CVA , right sided cva Microbiology 04/05/17 21:09 Urine - Urine Clean Catch Urine Culture - Preliminary Lactose Fermenting Neg Bacilli 04/05/17 12:18 Blood - Peripheral Venous Blood Culture - Final Beta Hem Streptococcus Group G 04/05/17 12:18 Blood - Peripheral Venous Blood Culture - Final Beta Hem Streptococcus Group G sensitive to levaquin , ampicillin, clindamycin, rocephin Echo 08/13/17: Left ventricular Ejection fraction normal, left ventricular size , thickness an function normal. Mild MR and TR, right ventricular systolic pressure normal. ASSESSMENT AND PLAN: Patient is a 76-year-old female with a significant medical history of CVA ( residual R-saima paresis, slurred speech), Asthma, DM Type II, COPD, CKD Stage 4 , Pneumonia, PVD, HTN, Chronic R- lower extremity edema presented to the ED via EMS with the chief complaints of Left upper quadrant pain x 2 days. # s/p Acute Sepsis responded to Rocephin upon discharge can continue with Levaquin 250mg po daily x 6 more days , Group G beta strept. Bacteremia sensitive levaquin, ampicillin, clindamycin, rocephin, Echo no vegetation noted. # Acute UTI responded to Rocephin 2gm IV daily upon discharge will discharge with levaquin . #Acute over chronic CKD stage IV with Creatinine 2.9 (baseline around 2.5), Nephrology consult # Normocytic anemia monitor possible due to CKD # Hx of CVA (residual right hemiparesis); No signs/symptoms of new stroke # Hypertension-controlled; Norvasc 10mg PO Daily # Hx of COPD on albuterol treatment continue # CAD (s/p cath but no stents) continue Aspirin 81mg Daily # DM; HbA1c ordered for am; Levemir 25U sq HS; BGM, ISS ACHS # Hypothyroidism continue Levothyroxine 88 mcg PO AM DVT Px: Heparin sq possible discharge in am , check with dr.[email or web address] lan to send the patient home with
[2017-04-07] MEDS: ACETAMINOPHEN 325 MG TABLET (FP) PO PRN (18:50)
[2017-04-07] MEDS: ATORVASTATIN CA 40 MG TABLET (FP) PO SCH (22:40)
[2017-04-07] MEDS: MONTELUKAST NA 10 MG TABLET PO SCH (22:40)
[2017-04-08] MEDS: LEVOTHYROXINE NA 88 MCG TABLET (FP) PO SCH (06:17)
[2017-04-08] MEDS: INSULIN SLIDING SCALE (NOVOLOG) 1 VIAL SQ SCH ×4 (06:22→23:33)
[2017-04-08] MEDS: ALBUTEROL SO4 2.5/IPRATROPIUM 0.5 INH SOL 3 ML VIAL.NEB. NEB SCH ×4 (06:50→23:08)
[2017-04-08 07:43] LABS: BASOPHIL 0.4 % (0-2.0); EOSINOPHIL 5.1 % (0-4.5); MCH 27.7 pg (25.7-33.7); MCHC 32.9 g/dl (32.0-36.0); MEAN PLT VOLUME 9.1 fl (7.5-11.1); NEUTROPHILS 69.8 % (42.8-82.8); PLATELET COUNT 154 K/MM3 (134-434); RDW 15.3 % (11.6-15.6)
[2017-04-08 08:23] LABS: ALBUMIN 2.7 g/dl (3.4-5.0); ALK PHOS 90 U/L (45-117); ANION GAP 10 (8-16); BILIRUBIN,TOTAL 0.5 mg/dL (0.2-1.0); CALCIUM 8.5 mg/dL (8.5-10.1); CO2 28 mmol/L (21-32); CREATININE 2.8 mg/dL (0.55-1.02); GLUCOSE,RANDOM 82 mg/dL (74-106); MAGNESIUM 2.9 mg/dL (1.8-2.4); PHOSPHOROUS 2.7 mg/dL (2.5-4.9); SGOT/AST 36 U/L (15-37); SGPT/ALT 24 U/L (12-78); TOT PROT 6.2 g/dl (6.4-8.2)
[2017-04-08] MEDS: CEFTRIAXONE 100 ML IVPB SCH (09:46)
[2017-04-08] MEDS: HEPARIN NA (PORCINE) 5,000 UNITS/ML 1ML VIAL SQ SCH ×2 (09:48→22:54)
[2017-04-08] MEDS: ASPIRIN 81 MG CHEWABLE TABLETS PO SCH (09:49)
[2017-04-08] MEDS: DOCUSATE SODIUM 100 MG CAPSULE (FP) PO SCH (09:49)
[2017-04-08] MEDS: ISOSORBIDE MONONITRATE 30 MG TAB.SR.24H (FP) PO SCH (09:49)
[2017-04-08] MEDS: amLODIPine BESYLATE 10 MG TABLET (FP) PO SCH (09:49)
[2017-04-08] MEDS: NYSTATIN 100,000 UNIT/GM TOPICAL CREAM 15 GM TUBE TP SCH ×4 (10:06→22:56)
--- NOTE | 2017-04-08 12:45 | PN ---
Progress Note (short form) - Note Progress Note: Renal Follow up for CKD Pt seen and examined at the bedside awake and alert no acute complaints denies any SOB, CP, Abd pain, N/V/D reports that she is urinating Vital Signs Temperature 99.0 F 04/07/17 06:00 Pulse Rate 80 04/07/17 10:00 Respiratory Rate 20 04/07/17 10:00 Blood Pressure 96/60 04/07/17 10:00 O2 Sat by Pulse Oximetry (%) 94 L 04/07/17 09:00 Intake & Output 04/04/17 04/05/17 04/06/17 04/07/17 23:59 23:59 23:59 23:59 Intake Total 1150 560 Balance 1150 560 Weight 280 lb 280 lb Gen: NAD, awake and alert CVS: RRR, No M/R Lungs: CTA, no rales or wheeze Abd: soft, Obese, NT/ND ext: Trace edema in LE CBC, BMP 04/08/17 06:15 04/08/17 06:15 Laboratory Tests 04/08/17 06:15 Creat Clearance w eGFR 16.43 Calcium 8.5 Phosphorus 2.7 D Magnesium 2.9 H Albumin 2.7 L Current Medications Acetaminophen (Tylenol -) 650 mg PO Q6H PRN PRN Reason: PAIN OR FEVER Last Admin: 04/07/17 18:50 Dose: 650 mg Albuterol Sulfate (Ventolin 0.083% Nebulizer Soln -) 1 amp NEB Q6H PRN PRN Reason: SHORT OF BREATH/WHEEZING Albuterol/Ipratropium (Duoneb -) 1 amp NEB QIDR [facility] Last Admin: 04/08/17 12:00 Dose: 1 amp Amlodipine Besylate (Norvasc -) 10 mg PO DAILY [facility] Last Admin: 04/08/17 09:49 Dose: 10 mg Aspirin (Asa -) 81 mg PO DAILY [facility] Last Admin: 04/08/17 09:49 Dose: 81 mg Atorvastatin Calcium (Lipitor -) 40 mg PO HS [facility] Last Admin: 04/07/17 22:40 Dose: 40 mg Docusate Sodium (Colace -) 100 mg PO DAILY [facility] Last Admin: 04/08/17 09:49 Dose: Not Given Heparin Sodium (Porcine) (Heparin -) 5,000 unit SQ BID [facility] Last Admin: 04/08/17 09:48 Dose: 5,000 unit Ceftriaxone Sodium (Rocephin 2gm Ivpb (Pre-Docked)) 100 mls @ 200 mls/hr IVPB DAILY [facility] Last Admin: 04/08/17 09:46 Dose: 200 mls/hr Insulin Aspart (Novolog Vial Sliding Scale -) 1 vial SQ ACHS [facility] PRN Reason: Protocol Last Admin: 04/08/17 12:32 Dose: Not Given Insulin Detemir (Levemir Vial) 25 units SQ HS [facility] Last Admin: 04/07/17 22:41 Dose: 25 units Isosorbide Mononitrate (Imdur -) 30 mg PO DAILY [facility] Last Admin: 04/08/17 09:49 Dose: 30 mg Levothyroxine Sodium (Synthroid -) 88 mcg PO AM [facility] Last Admin: 04/08/17 06:17 Dose: 88 mcg Montelukast Sodium (Singulair -) 10 mg PO HS [facility] Last Admin: 04/07/17 22:40 Dose: 10 mg Nystatin (Mycostatin Cream -) 1 applic TP QID [facility] Last Admin: 04/08/17 10:06 Dose: 1 applic 76 year old woman with PMhx of CKD Stage 4, Hypertension, DM, CVA who presented with complaints of fever and flank pain and admitted for SIRS/UTI with BUN/Cr of 68/2.9 #CKD stage 4 with subnephrotic proteinuria Etiology of CKD likely related to diabetic + hypertensive kidney disease Prior work up showed b/l atrophic kidneys, subnephrotic proteinuira, + RIANNA, Neg Anti DS DNA, normal Complements Renal function stable throughout this admission and similiar to pirior values would maintain present management, no CLAY/ARB given low eGFR to follow with outpatient administrative tech on discharge #Leukocytosis/Fever/Strep Bacteremia/SIRS etiology of strep bactermia (CXR negative, Urine grew E.Coli) ? need for further diagnostic studies (i.e. ECHO) but repeat cultures are negative continue Abx as per ID/Primary team Thank you Terrance Zamorano DO Problem List - Problems (1) CKD (chronic kidney disease) Code(s): N18.9 - CHRONIC KIDNEY DISEASE, UNSPECIFIED (2) Sepsis Code(s): A41.9 - SEPSIS, UNSPECIFIED ORGANISM Qualifiers: Sepsis type: Escherichia coli Qualified Code(s): A41.51 - Sepsis due to Escherichia coli [E. coli] (3) UTI (urinary tract infection) Code(s): N39.0 - URINARY TRACT INFECTION, SITE NOT SPECIFIED Qualifiers: Urinary tract infection type: acute cystitis Hematuria presence: without hematuria Qualified Code(s): N30.00 - Acute cystitis without hematuria (4) Anemia Code(s): D64.9 - ANEMIA, UNSPECIFIED Qualifiers: Iron deficiency anemia type: chronic blood loss (5) Diabetes Code(s): E11.9 - TYPE 2 DIABETES MELLITUS WITHOUT COMPLICATIONS (6) Elevated BUN Code(s): R79.9 - ABNORMAL FINDING OF BLOOD CHEMISTRY, UNSPECIFIED (7) Elevated serum creatinine Code(s): R79.89 - OTHER SPECIFIED ABNORMAL FINDINGS OF BLOOD CHEMISTRY (8) HTN (hypertension) Code(s): I10 - ESSENTIAL (PRIMARY) HYPERTENSION (9) CVA (cerebral vascular accident) Code(s): I63.9 - CEREBRAL INFARCTION, UNSPECIFIED (10) Proteinuria Code(s): R80.9 - PROTEINURIA, UNSPECIFIED (11) Leukocytosis Code(s): D72.829 - ELEVATED WHITE BLOOD CELL COUNT, UNSPECIFIED
--- NOTE | 2017-04-08 13:55 | PN ---
Progress Note, Physician History of Present Illness: patient feeling much better flank pain better slowly improving flank pain much better - Current Medication List Current Medications: Active Medications Acetaminophen (Tylenol -) 650 mg PO Q6H PRN PRN Reason: PAIN OR FEVER Last Admin: 04/07/17 18:50 Dose: 650 mg Albuterol Sulfate (Ventolin 0.083% Nebulizer Soln -) 1 amp NEB Q6H PRN PRN Reason: SHORT OF BREATH/WHEEZING Albuterol/Ipratropium (Duoneb -) 1 amp NEB QIDR [facility] Last Admin: 04/08/17 12:00 Dose: 1 amp Amlodipine Besylate (Norvasc -) 10 mg PO DAILY [facility] Last Admin: 04/08/17 09:49 Dose: 10 mg Aspirin (Asa -) 81 mg PO DAILY [facility] Last Admin: 04/08/17 09:49 Dose: 81 mg Atorvastatin Calcium (Lipitor -) 40 mg PO HS [facility] Last Admin: 04/07/17 22:40 Dose: 40 mg Docusate Sodium (Colace -) 100 mg PO DAILY [facility] Last Admin: 04/08/17 09:49 Dose: Not Given Heparin Sodium (Porcine) (Heparin -) 5,000 unit SQ BID [facility] Last Admin: 04/08/17 09:48 Dose: 5,000 unit Ceftriaxone Sodium (Rocephin 2gm Ivpb (Pre-Docked)) 100 mls @ 200 mls/hr IVPB DAILY [facility] Last Admin: 04/08/17 09:46 Dose: 200 mls/hr Insulin Aspart (Novolog Vial Sliding Scale -) 1 vial SQ ACHS [facility] PRN Reason: Protocol Last Admin: 04/08/17 12:32 Dose: Not Given Insulin Detemir (Levemir Vial) 25 units SQ HS [facility] Last Admin: 04/07/17 22:41 Dose: 25 units Isosorbide Mononitrate (Imdur -) 30 mg PO DAILY [facility] Last Admin: 04/08/17 09:49 Dose: 30 mg Levothyroxine Sodium (Synthroid -) 88 mcg PO AM [facility] Last Admin: 04/08/17 06:17 Dose: 88 mcg Montelukast Sodium (Singulair -) 10 mg PO HS [facility] Last Admin: 04/07/17 22:40 Dose: 10 mg Nystatin (Mycostatin Cream -) 1 applic TP QID [facility] Last Admin: 04/08/17 13:28 Dose: 1 applic - Objective Vital Signs: Vital Signs Temperature 96.6 F L 04/08/17 06:00 Pulse Rate 76 04/08/17 09:39 Respiratory Rate 20 04/08/17 06:00 Blood Pressure 121/66 04/08/17 06:00 O2 Sat by Pulse Oximetry (%) 98 04/08/17 09:39 Constitutional: Yes: No Distress, Calm, Obese Cardiovascular: Yes: Regular Rate and Rhythm Respiratory: Yes: Regular, CTA Bilaterally Gastrointestinal: Yes: Normal Bowel Sounds, Soft Musculoskeletal: Yes: WNL Extremities: Yes: WNL Neurological: Yes: Alert, Oriented Psychiatric: Yes: Alert, Oriented Labs: CBC, BMP 04/08/17 06:15 04/08/17 06:15 INR, PTT INR 1.27 (0.82-1.09) H 04/05/17 12:20 Assessment/Plan patient evaluated patient is now bacteremic i doubt that this coming from the kidneys i am worried about other issues Problem List - Problems (1) CKD (chronic kidney disease) Code(s): N18.9 - CHRONIC KIDNEY DISEASE, UNSPECIFIED (2) Sepsis Code(s): A41.9 - SEPSIS, UNSPECIFIED ORGANISM Qualifiers: Sepsis type: Escherichia coli Qualified Code(s): A41.51 - Sepsis due to Escherichia coli [E. coli] (3) UTI (urinary tract infection) Code(s): N39.0 - URINARY TRACT INFECTION, SITE NOT SPECIFIED Qualifiers: Urinary tract infection type: acute cystitis Hematuria presence: without hematuria Qualified Code(s): N30.00 - Acute cystitis without hematuria (4) Anemia Code(s): D64.9 - ANEMIA, UNSPECIFIED Qualifiers: Iron deficiency anemia type: chronic blood loss (5) Diabetes Code(s): E11.9 - TYPE 2 DIABETES MELLITUS WITHOUT COMPLICATIONS (6) Elevated BUN Code(s): R79.9 - ABNORMAL FINDING OF BLOOD CHEMISTRY, UNSPECIFIED (7) Elevated serum creatinine Code(s): R79.89 - OTHER SPECIFIED ABNORMAL FINDINGS OF BLOOD CHEMISTRY (8) HTN (hypertension) Code(s): I10 - ESSENTIAL (PRIMARY) HYPERTENSION (9) CVA (cerebral vascular accident) Code(s): I63.9 - CEREBRAL INFARCTION, UNSPECIFIED (10) Proteinuria Code(s): R80.9 - PROTEINURIA, UNSPECIFIED (11) Leukocytosis Code(s): D72.829 - ELEVATED WHITE BLOOD CELL COUNT, UNSPECIFIED plan continue current mgmt echo result awaited repeat blood cx negative so far now all the results of culture are present i think patient is having dual pathology one pyelo and bacteremia continue current abx
--- NOTE | 2017-04-08 15:52 | PN ---
Physical Exam: SUBJECTIVE: Patient seen and examined at bedside. No acute events overnight. Pt refused to have a respiratory treatment in the morning, but agreed after the benefits to her were restated. Pt denies headache, cp, abd pain, nausea, vomiting, diarrhea, dysuria, fevers. OBJECTIVE: Vital Signs Period Temp Pulse Resp BP Sys/Mike Pulse Ox Last 24 Hr 96.6 F-99.3 F 76-83 18-22 112-134/59-68 95-98 GENERAL: The patient is awake, alert, and fully oriented, in no acute distress. HEAD: Normal with no signs of trauma. EYES: PERRL, extraocular movements intact, sclera anicteric, conjunctiva clear. No ptosis. ENT: Ears normal, nares patent, oropharynx clear without exudates, moist mucous membranes. NECK: Trachea midline, full range of motion, supple. LUNGS: Breath sounds equal, clear to auscultation bilaterally, no wheezes, no crackles, no accessory muscle use. HEART: Regular rate and rhythm, S1, S2 without murmur, rub or gallop. ABDOMEN: Soft, nontender, nondistended, normoactive bowel sounds, no guarding, no rebound, no hepatosplenomegaly, no masses. EXTREMITIES: 2+ pulses, warm, well-perfused, no edema. NEUROLOGICAL: Cranial nerves II through XII grossly intact. Normal speech, gait not observed. PSYCH: Normal mood, normal affect. SKIN: Warm, dry, normal turgor, no rashes or lesions noted Laboratory Results - last 24 hr 04/07/17 04/07/17 04/08/17 17:13 22:48 00:05 WBC RBC Hgb Hct MCV MCH MCHC RDW Plt Count MPV Neutrophils % Lymphocytes % Monocytes % Eosinophils % Basophils % Sodium Potassium Chloride Carbon Dioxide Anion Gap BUN Creatinine Creat Clearance w eGFR POC Glucometer 142 157 137 Random Glucose Calcium Phosphorus Magnesium Total Bilirubin AST ALT Alkaline Phosphatase Total Protein Albumin 04/08/17 04/08/17 04/08/17 06:15 06:15 06:20 WBC 9.0 RBC 3.05 L Hgb 8.4 L Hct 25.6 L MCV 84.0 MCH 27.7 MCHC 32.9 RDW 15.3 Plt Count 154 MPV 9.1 Neutrophils % 69.8 Lymphocytes % 16.6 Monocytes % 8.1 Eosinophils % 5.1 H D Basophils % 0.4 Sodium 136 Potassium 3.9 Chloride 98 Carbon Dioxide 28 Anion Gap 10 BUN 62 H Creatinine 2.8 H Creat Clearance w eGFR 16.43 POC Glucometer 94 Random Glucose 82 Calcium 8.5 Phosphorus 2.7 D Magnesium 2.9 H Total Bilirubin 0.5 AST 36 ALT 24 Alkaline Phosphatase 90 Total Protein 6.2 L Albumin 2.7 L 04/08/17 11:42 WBC RBC Hgb Hct MCV MCH MCHC RDW Plt Count MPV Neutrophils % Lymphocytes % Monocytes % Eosinophils % Basophils % Sodium Potassium Chloride Carbon Dioxide Anion Gap BUN Creatinine Creat Clearance w eGFR POC Glucometer 130 Random Glucose Calcium Phosphorus Magnesium Total Bilirubin AST ALT Alkaline Phosphatase Total Protein Albumin Active Medications Generic Name Dose Route Start Last Admin Trade Name Freq PRN Reason Stop Dose Admin Acetaminophen 650 mg 04/05/17 17:56 04/07/17 18:50 Tylenol - PO 650 mg Q6H PRN Administration PAIN OR FEVER Albuterol Sulfate 1 amp 04/05/17 18:59 Ventolin 0.083% Nebulizer Soln - NEB Q6H PRN SHORT OF BREATH/WHEEZING Albuterol/Ipratropium 1 amp 04/06/17 12:00 04/08/17 12:00 Duoneb - NEB 1 amp QIDR IWONA Administration Amlodipine Besylate 10 mg 04/06/17 10:00 04/08/17 09:49 Norvasc - PO 10 mg DAILY IWONA Administration Aspirin 81 mg 04/06/17 10:00 04/08/17 09:49 Asa - PO 81 mg DAILY IWONA Administration Atorvastatin Calcium 40 mg 04/05/17 22:00 04/07/17 22:40 Lipitor - PO 40 mg HS IWONA Administration Docusate Sodium 100 mg 04/06/17 10:00 04/08/17 09:49 Colace - PO Not Given DAILY IWONA Heparin Sodium (Porcine) 5,000 unit 04/05/17 22:00 04/08/17 09:48 Heparin - SQ 5,000 unit BID IWONA Administration Ceftriaxone Sodium 100 mls @ 200 mls/hr 04/06/17 10:00 04/08/17 09:46 Rocephin 2gm Ivpb (Pre-Docked) IVPB 200 mls/hr DAILY IWONA Administration Insulin Aspart 1 vial 04/05/17 22:00 04/08/17 12:32 Novolog Vial Sliding Scale - SQ Not Given ACHS [facility] Protocol Insulin Detemir 25 units 04/05/17 22:00 04/07/17 22:41 Levemir Vial SQ 25 units HS IWONA Administration Isosorbide Mononitrate 30 mg 04/06/17 10:00 04/08/17 09:49 Imdur - PO 30 mg DAILY I[facility]ONA Administration Levothyroxine Sodium 88 mcg 04/06/17 07:00 04/08/17 06:17 Synthroid - PO 88 mcg AM IWONA Administration Montelukast Sodium 10 mg 04/06/17 22:00 04/07/17 22:40 Singulair - PO 10 mg HS IWONA Administration Nystatin 1 applic 04/06/17 10:00 04/08/17 13:28 Mycostatin Cream - TP 1 applic QID IWONA Administration ASSESSMENT/PLAN: This is a 76 y/o F with PMH obesity, cva (with residual right sided weakness), asthma, ckd, cad (s/p cardiac cath), DM, HTN, thyroid disease, GI bleed with anemia (s/p transfusion in the past) who presented to the ED with left abdominal and flank pain. #Sepsis -blood and urine cultures are positive for different organisms. Thus, sepsis secondary to UTI is unlikely. Throat without erythema -vitals in ED: temp 102.5, BP 138/90, HR 71, O2 sat 100% -in ED, pt received 1 dose Vanco 250mg IVPB, NS 2600ml, acetaminophen 1000mg IVPB, UA (+1 prot, +1 blood, +1 LE, RBC < 1, WBC 15), urine culture, blood culture -Blood cultures show Group B Strep. Repeat cultures negative -Urine cultures show E. coli -Acetaminophen 650mg Q6H PRN -Ceftriaxone increased to 2gm Daily -Nephro consult (Dr. Zamorano) appreciated. Recs renal u/s, upcr, no nephrotoxic Rx. -Renal U/S pending. Pt is refusing. Would not explain why. -leukocytosis resolved. 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 - New Patient This patient is new to me today: Yes Date on this admission: 04/08/17 - Critical Care Critical Care patient: No
--- NOTE | 2017-04-08 20:35 | PN ---
Teaching Attending Note Name of Resident: Mark Garcia ATTENDING PHYSICIAN STATEMENT I saw and evaluated the patient. I reviewed the resident's note and discussed the case with the resident. I agree with the resident's findings and plan as documented. SUBJECTIVE: no pain, no fever or chills OBJECTIVE: NAD , mouth with dentures, no oropharynx erythema or exudate CV : RRR Lungs: CTAB ABd : soft, NT<> ND , NL BS Ext : RLE with increased circumference , and tenderness. erythema on medial lower R thigh ...all these changes are chronic and not new per patient since her stroke . Skin : no decub or skin break down on buttocks area ASSESSMENT AND PLAN: 76-year-old female with history of CVA (residual R-saima paresis, slurred speech), Asthma, DM Type II, COPD, CKD Stage 4, Pneumonia, PVD, HTN, Chronic R- lower extremity edema presented LUQ pain. She was found to have Pyelonephritis and Strep bacteremia 1- Pyelonephritis : with E coli . improved . cont rocephin 2- Strep bacteremia : no clear source. Skinn with no ulcers, or cellulitis . Mout and throat with no signs of infection . - follow repeat cx . - echo done , pending read to r/o Endocarditis - cont Rocephin - need the whole duration of Abx with IV 3- CKD IV, stable renal function . monitor not on ACEI /ARB 4- HTN , cont norvasc 5- HLOC
[2017-04-08] MEDS: INSULIN DETEMIR 100 UNITS/ML MDV SQ SCH (22:55)
[2017-04-08] MEDS: ATORVASTATIN CA 40 MG TABLET (FP) PO SCH (22:56)
[2017-04-08] MEDS: MONTELUKAST NA 10 MG TABLET PO SCH (22:56)
[2017-04-09] MEDS: ALBUTEROL SO4 2.5/IPRATROPIUM 0.5 INH SOL 3 ML VIAL.NEB. NEB SCH ×4 (06:16→23:20)
--- NOTE | 2017-04-09 06:28 | PN ---
Physical Exam: SUBJECTIVE: Patient seen and examined OBJECTIVE: Vital Signs Period Temp Pulse Resp BP Sys/Mike Pulse Ox Last 24 Hr 98.0 F-99.1 F 66-85 20-22 112-145/58-66 94-98 GENERAL: The patient is awake, alert, and fully oriented, in no acute distress. HEAD: Normal with no signs of trauma. EYES: PERRL, extraocular movements intact, sclera anicteric, conjunctiva clear. No ptosis. ENT: Ears normal, nares patent, oropharynx clear without exudates, moist mucous membranes. NECK: Trachea midline, full range of motion, supple. LUNGS: Breath sounds equal, clear to auscultation bilaterally, no wheezes, no crackles, no accessory muscle use. HEART: Regular rate and rhythm, S1, S2 without murmur, rub or gallop. ABDOMEN: Soft, nontender, nondistended, normoactive bowel sounds, no guarding, no rebound, no hepatosplenomegaly, no masses. EXTREMITIES: 2+ pulses, warm, well-perfused, no edema. NEUROLOGICAL: Cranial nerves II through XII grossly intact. Normal speech, gait not observed. PSYCH: Normal mood, normal affect. SKIN: Warm, dry, normal turgor, no rashes or lesions noted Laboratory Results - last 24 hr 04/08/17 04/08/17 04/08/17 06:15 06:15 06:20 WBC 9.0 RBC 3.05 L Hgb 8.4 L Hct 25.6 L MCV 84.0 MCH 27.7 MCHC 32.9 RDW 15.3 Plt Count 154 MPV 9.1 Neutrophils % 69.8 Lymphocytes % 16.6 Monocytes % 8.1 Eosinophils % 5.1 H D Basophils % 0.4 Sodium 136 Potassium 3.9 Chloride 98 Carbon Dioxide 28 Anion Gap 10 BUN 62 H Creatinine 2.8 H Creat Clearance w eGFR 16.43 POC Glucometer 94 Random Glucose 82 Calcium 8.5 Phosphorus 2.7 D Magnesium 2.9 H Total Bilirubin 0.5 AST 36 ALT 24 Alkaline Phosphatase 90 Total Protein 6.2 L Albumin 2.7 L 04/08/17 04/08/17 04/08/17 11:42 17:22 22:53 WBC RBC Hgb Hct MCV MCH MCHC RDW Plt Count MPV Neutrophils % Lymphocytes % Monocytes % Eosinophils % Basophils % Sodium Potassium Chloride Carbon Dioxide Anion Gap BUN Creatinine Creat Clearance w eGFR POC Glucometer 130 100 138 Random Glucose Calcium Phosphorus Magnesium Total Bilirubin AST ALT Alkaline Phosphatase Total Protein Albumin Active Medications Generic Name Dose Route Start Last Admin Trade Name Mojgan PRN Reason Stop Dose Admin Acetaminophen 650 mg 04/05/17 17:56 04/07/17 18:50 Tylenol - PO 650 mg Q6H PRN Administration PAIN OR FEVER Albuterol Sulfate 1 amp 04/05/17 18:59 Ventolin 0.083% Nebulizer Soln - NEB Q6H PRN SHORT OF BREATH/WHEEZING Albuterol/Ipratropium 1 amp 04/06/17 12:00 04/09/17 06:16 Duoneb - NEB 1 amp QIDR IWONA Administration Amlodipine Besylate 10 mg 04/06/17 10:00 04/08/17 09:49 Norvasc - PO 10 mg DAILY IWONA Administration Aspirin 81 mg 04/06/17 10:00 04/08/17 09:49 Asa - PO 81 mg DAILY I[facility]ONA Administration Atorvastatin Calcium 40 mg 04/05/17 22:00 04/08/17 22:56 Lipitor - PO 40 mg HS IWONA Administration Docusate Sodium 100 mg 04/06/17 10:00 04/08/17 09:49 Colace - PO Not Given DAILY IWONA Heparin Sodium (Porcine) 5,000 unit 04/05/17 22:00 04/08/17 22:54 Heparin - SQ 5,000 unit BID IWONA Administration Ceftriaxone Sodium 100 mls @ 200 mls/hr 04/06/17 10:00 04/08/17 09:46 Rocephin 2gm Ivpb (Pre-Docked) IVPB 200 mls/hr DAILY I[facility] Administration Insulin Aspart 1 vial 04/05/17 22:00 04/08/17 23:33 Novolog Vial Sliding Scale - SQ Not Given ACHS [facility] Protocol Insulin Detemir 25 units 04/05/17 22:00 04/08/17 22:55 Levemir Vial SQ 25 units HS IWONA Administration Isosorbide Mononitrate 30 mg 04/06/17 10:00 04/08/17 09:49 Imdur - PO 30 mg DAILY IWONA Administration Levothyroxine Sodium 88 mcg 04/06/17 07:00 04/08/17 06:17 Synthroid - PO 88 mcg AM IWONA Administration Montelukast Sodium 10 mg 04/06/17 22:00 04/08/17 22:56 Singulair - PO 10 mg HS IWONA Administration Nystatin 1 applic 04/06/17 10:00 04/08/17 22:56 Mycostatin Cream - TP 1 applic QID IWONA Administration ASSESSMENT/PLAN: This is a 76 y/o F with PMH obesity, cva (with residual right sided weakness), asthma, ckd, cad (s/p cardiac cath), DM, HTN, thyroid disease, GI bleed with anemia (s/p transfusion in the past) who presented to the ED with left abdominal and flank pain. #Sepsis -blood and urine cultures are positive for different organisms. Thus, sepsis secondary to UTI is unlikely. Throat without erythema -vitals in ED: temp 102.5, BP 138/90, HR 71, O2 sat 100% -in ED, pt received 1 dose Vanco 250mg IVPB, NS 2600ml, acetaminophen 1000mg IVPB, UA (+1 prot, +1 blood, +1 LE, RBC < 1, WBC 15), urine culture, blood culture -Blood cultures show Group B Strep. Repeat cultures negative -Urine cultures show E. coli -Acetaminophen 650mg Q6H PRN -Ceftriaxone 2gm Daily #Pyelonephritis -Nephro consult (Dr. Zamorano) appreciated. -Renal U/S pending. Pt is refusing. Would not explain why. -Urine cultures show E. 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
[2017-04-09] MEDS: LEVOTHYROXINE NA 88 MCG TABLET (FP) PO SCH (06:32)
[2017-04-09 08:58] LABS: MCH 27.4 pg (25.7-33.7); MCHC 32.5 g/dl (32.0-36.0); MEAN CELL VOLUME 84.2 fl (80-96); MEAN PLT VOLUME 8.9 fl (7.5-11.1); PLATELET COUNT 174 K/MM3 (134-434); RDW 15.3 % (11.6-15.6); WHITE BLOOD COUNT 10.7 K/mm3 (4.0-10.0)
[2017-04-09 09:51] LABS: ANION GAP 9 (8-16); CALCIUM 8.7 mg/dL (8.5-10.1); CO2 27 mmol/L (21-32); CREATININE 2.7 mg/dL (0.55-1.02); GLUCOSE,RANDOM 65 mg/dL (74-106)
[2017-04-09] MEDS: ISOSORBIDE MONONITRATE 30 MG TAB.SR.24H (FP) PO SCH (10:23)
[2017-04-09] MEDS: amLODIPine BESYLATE 10 MG TABLET (FP) PO SCH (10:23)
[2017-04-09] MEDS: ASPIRIN 81 MG CHEWABLE TABLETS PO SCH (10:23)
[2017-04-09] MEDS: CEFTRIAXONE 100 ML IVPB SCH (10:23)
[2017-04-09] MEDS: HEPARIN NA (PORCINE) 5,000 UNITS/ML 1ML VIAL SQ SCH ×2 (10:23→22:34)
[2017-04-09] MEDS: DOCUSATE SODIUM 100 MG CAPSULE (FP) PO SCH (10:23)
[2017-04-09] MEDS: NYSTATIN 100,000 UNIT/GM TOPICAL CREAM 15 GM TUBE TP SCH ×4 (10:25→22:34)
[2017-04-09 11:28] LABS: PLATELET ESTIMATE ADEQUATE (NORMAL)
[2017-04-09] MEDS: INSULIN SLIDING SCALE (NOVOLOG) 1 VIAL SQ SCH ×3 (11:51→23:36)
--- NOTE | 2017-04-09 15:29 | PN ---
Teaching Attending Note Name of Resident: Mark Garcia ATTENDING PHYSICIAN STATEMENT I saw and evaluated the patient. I reviewed the resident's note and discussed the case with the resident. I agree with the resident's findings and plan as documented. SUBJECTIVE: refused to be interviewed. OBJECTIVE: refused to be examined. wheezing heard ASSESSMENT AND PLAN: 76-year-old female with history of CVA (residual R-saima paresis, slurred speech), Asthma, DM Type II, COPD, CKD Stage 4, Pneumonia, PVD, HTN, Chronic R- lower extremity edema presented LUQ pain. She was found to have Pyelonephritis and Strep bacteremia 1- Pyelonephritis : with E coli . improved . cont rocephin 2- Strep bacteremia : no clear source. Skin with no ulcers, or cellulitis . Mouth and throat with no signs of infection . - repeat blood cx with no growth to date . - echo with no visualization of MV, and TV. Will consult card to evaluate for VERONICA to r/o Endocarditis . - cont Rocephin - duration of abx depends on whether she has endocarditis or now 3- Wheezing, has h/o COPD, will treat for very mild COPD exacerbation. start a course of po prednisone. start advair cont Nebs and singular 4- CKD IV, stable renal function . monitor not on ACEI /ARB 5- HTN , cont norvasc 6- HLOC
--- NOTE | 2017-04-09 16:13 | PN ---
Problem List - Problems (1) CKD (chronic kidney disease) Code(s): N18.9 - CHRONIC KIDNEY DISEASE, UNSPECIFIED (2) Sepsis Code(s): A41.9 - SEPSIS, UNSPECIFIED ORGANISM Qualifiers: Sepsis type: Escherichia coli Qualified Code(s): A41.51 - Sepsis due to Escherichia coli [E. coli] (3) UTI (urinary tract infection) Code(s): N39.0 - URINARY TRACT INFECTION, SITE NOT SPECIFIED Qualifiers: Urinary tract infection type: acute cystitis Hematuria presence: without hematuria Qualified Code(s): N30.00 - Acute cystitis without hematuria (4) Anemia Code(s): D64.9 - ANEMIA, UNSPECIFIED Qualifiers: Iron deficiency anemia type: chronic blood loss (5) Diabetes Code(s): E11.9 - TYPE 2 DIABETES MELLITUS WITHOUT COMPLICATIONS (6) Elevated BUN Code(s): R79.9 - ABNORMAL FINDING OF BLOOD CHEMISTRY, UNSPECIFIED (7) Elevated serum creatinine Code(s): R79.89 - OTHER SPECIFIED ABNORMAL FINDINGS OF BLOOD CHEMISTRY (8) HTN (hypertension) Code(s): I10 - ESSENTIAL (PRIMARY) HYPERTENSION (9) CVA (cerebral vascular accident) Code(s): I63.9 - CEREBRAL INFARCTION, UNSPECIFIED (10) Proteinuria Code(s): R80.9 - PROTEINURIA, UNSPECIFIED (11) Leukocytosis Code(s): D72.829 - ELEVATED WHITE BLOOD CELL COUNT, UNSPECIFIED
--- NOTE | 2017-04-09 16:17 | PN ---
Progress Note (short form) - Note Progress Note: Renal Follow up for CKD Pt seen and examined at the bedside awake and alert no acute complaints denies any sob Vital Signs Temperature 99.3 F 04/09/17 14:33 Pulse Rate 85 04/09/17 14:33 Respiratory Rate 20 04/09/17 14:33 Blood Pressure 135/71 04/09/17 14:33 O2 Sat by Pulse Oximetry (%) 94 L 04/09/17 11:35 Intake & Output 04/06/17 04/07/17 04/08/17 04/09/17 23:59 23:59 23:59 23:59 Intake Total 1150 1060 1050 Balance 1150 1060 1050 Weight 280 lb Gen: NAD, awake and alert CVS: RRR, No M/R Lungs: CTA, no rales or wheeze Abd: soft, Obese, NT/ND ext: Trace edema in LE CBC, BMP 04/09/17 08:35 04/09/17 08:35 Current Medications Acetaminophen (Tylenol -) 650 mg PO Q6H PRN PRN Reason: PAIN OR FEVER Last Admin: 04/07/17 18:50 Dose: 650 mg Albuterol Sulfate (Ventolin 0.083% Nebulizer Soln -) 1 amp NEB Q6H PRN PRN Reason: SHORT OF BREATH/WHEEZING Albuterol/Ipratropium (Duoneb -) 1 amp NEB QIDR IWONA Last Admin: 04/09/17 11:35 Dose: 1 amp Amlodipine Besylate (Norvasc -) 10 mg PO DAILY [facility] Last Admin: 04/09/17 10:23 Dose: 10 mg Aspirin (Asa -) 81 mg PO DAILY IWONA Last Admin: 04/09/17 10:23 Dose: 81 mg Atorvastatin Calcium (Lipitor -) 40 mg PO HS [facility] Last Admin: 04/08/17 22:56 Dose: 40 mg Docusate Sodium (Colace -) 100 mg PO DAILY IWONA Last Admin: 04/09/17 10:23 Dose: 100 mg Heparin Sodium (Porcine) (Heparin -) 5,000 unit SQ BID IWONA Last Admin: 04/09/17 10:23 Dose: 5,000 unit Ceftriaxone Sodium (Rocephin 2gm Ivpb (Pre-Docked)) 100 mls @ 200 mls/hr IVPB DAILY [facility] Last Admin: 04/09/17 10:23 Dose: 200 mls/hr Insulin Aspart (Novolog Vial Sliding Scale -) 1 vial SQ ACHS [facility] PRN Reason: Protocol Last Admin: 04/09/17 11:51 Dose: Not Given Insulin Detemir (Levemir Vial) 25 units SQ HS [facility] Last Admin: 04/08/17 22:55 Dose: 25 units Isosorbide Mononitrate (Imdur -) 30 mg PO DAILY [facility] Last Admin: 04/09/17 10:23 Dose: 30 mg Levothyroxine Sodium (Synthroid -) 88 mcg PO AM [facility] Last Admin: 04/09/17 06:32 Dose: 88 mcg Montelukast Sodium (Singulair -) 10 mg PO HS [facility] Last Admin: 04/08/17 22:56 Dose: 10 mg Nystatin (Mycostatin Cream -) 1 applic TP QID [facility] Last Admin: 04/09/17 14:00 Dose: 1 applic Prednisone (Deltasone -) 40 mg PO DAILY IWONA Fluticasone/Salmeterol (Advair 100mcg/50mcg -) 1 puff IH BID [facility] Trazodone HCl (Desyrel -) 25 mg PO ONCE ONE Stop: 04/09/17 20:01 76 year old woman with PMhx of CKD Stage 4, Hypertension, DM, CVA who presented with complaints of fever and flank pain and admitted for SIRS/UTI with BUN/Cr of 68/2.9 #CKD stage 4 with subnephrotic proteinuria Etiology of CKD likely related to diabetic + hypertensive kidney disease Prior work up showed b/l atrophic kidneys, subnephrotic proteinuira, + RIANNA, Neg Anti DS DNA, normal Complements Renal function remains stable continue to trend bun/cr Dose all meds for Cr Cl less then 30 #Leukocytosis/Fever/Strep Bacteremia/SIRS ?etiology of strep bactermia (CXR negative, Urine grew E.Coli) TTE reports did not mention any veg although it was not a optimal study continue abx as per primary Thank you Terrance Zamorano DO Problem List - Problems (1) CKD (chronic kidney disease) Code(s): N18.9 - CHRONIC KIDNEY DISEASE, UNSPECIFIED (2) Sepsis Code(s): A41.9 - SEPSIS, UNSPECIFIED ORGANISM Qualifiers: Sepsis type: Escherichia coli Qualified Code(s): A41.51 - Sepsis due to Escherichia coli [E. coli] (3) UTI (urinary tract infection) Code(s): N39.0 - URINARY TRACT INFECTION, SITE NOT SPECIFIED Qualifiers: Urinary tract infection type: acute cystitis Hematuria presence: without hematuria Qualified Code(s): N30.00 - Acute cystitis without hematuria (4) Anemia Code(s): D64.9 - ANEMIA, UNSPECIFIED Qualifiers: Iron deficiency anemia type: chronic blood loss (5) Diabetes Code(s): E11.9 - TYPE 2 DIABETES MELLITUS WITHOUT COMPLICATIONS (6) Elevated BUN Code(s): R79.9 - ABNORMAL FINDING OF BLOOD CHEMISTRY, UNSPECIFIED (7) Elevated serum creatinine Code(s): R79.89 - OTHER SPECIFIED ABNORMAL FINDINGS OF BLOOD CHEMISTRY (8) HTN (hypertension) Code(s): I10 - ESSENTIAL (PRIMARY) HYPERTENSION (9) CVA (cerebral vascular accident) Code(s): I63.9 - CEREBRAL INFARCTION, UNSPECIFIED (10) Proteinuria Code(s): R80.9 - PROTEINURIA, UNSPECIFIED (11) Leukocytosis Code(s): D72.829 - ELEVATED WHITE BLOOD CELL COUNT, UNSPECIFIED
[2017-04-09] MEDS ORDERED: PT OWN MED DRAWER 7, Y5N ONE ×2 (16:53→21:57)
--- NOTE | 2017-04-09 16:54 | PN ---
Progress Note, Physician History of Present Illness: patient says doing better no new issues leg with erythema still rt thigh back pain has resolved - Current Medication List Current Medications: Active Medications Acetaminophen (Tylenol -) 650 mg PO Q6H PRN PRN Reason: PAIN OR FEVER Last Admin: 04/07/17 18:50 Dose: 650 mg Albuterol Sulfate (Ventolin 0.083% Nebulizer Soln -) 1 amp NEB Q6H PRN PRN Reason: SHORT OF BREATH/WHEEZING Albuterol/Ipratropium (Duoneb -) 1 amp NEB QIDR [facility] Last Admin: 04/09/17 11:35 Dose: 1 amp Amlodipine Besylate (Norvasc -) 10 mg PO DAILY [facility] Last Admin: 04/09/17 10:23 Dose: 10 mg Aspirin (Asa -) 81 mg PO DAILY [facility] Last Admin: 04/09/17 10:23 Dose: 81 mg Atorvastatin Calcium (Lipitor -) 40 mg PO HS [facility] Last Admin: 04/08/17 22:56 Dose: 40 mg Docusate Sodium (Colace -) 100 mg PO DAILY [facility] Last Admin: 04/09/17 10:23 Dose: 100 mg Heparin Sodium (Porcine) (Heparin -) 5,000 unit SQ BID [facility] Last Admin: 04/09/17 10:23 Dose: 5,000 unit Ceftriaxone Sodium (Rocephin 2gm Ivpb (Pre-Docked)) 100 mls @ 200 mls/hr IVPB DAILY [facility] Last Admin: 04/09/17 10:23 Dose: 200 mls/hr Insulin Aspart (Novolog Vial Sliding Scale -) 1 vial SQ ACHS [facility] PRN Reason: Protocol Last Admin: 04/09/17 11:51 Dose: Not Given Insulin Detemir (Levemir Vial) 25 units SQ HS [facility] Last Admin: 04/08/17 22:55 Dose: 25 units Isosorbide Mononitrate (Imdur -) 30 mg PO DAILY [facility] Last Admin: 04/09/17 10:23 Dose: 30 mg Levothyroxine Sodium (Synthroid -) 88 mcg PO AM [facility] Last Admin: 04/09/17 06:32 Dose: 88 mcg Montelukast Sodium (Singulair -) 10 mg PO HS [facility] Last Admin: 04/08/17 22:56 Dose: 10 mg Nystatin (Mycostatin Cream -) 1 applic TP QID [facility] Last Admin: 04/09/17 14:00 Dose: 1 applic Prednisone (Deltasone -) 40 mg PO DAILY [facility] Fluticasone/Salmeterol (Advair 100mcg/50mcg -) 1 puff IH BID [facility] Trazodone HCl (Desyrel -) 25 mg PO ONCE ONE Stop: 04/09/17 20:01 - Objective Vital Signs: Vital Signs Temperature 99.3 F 04/09/17 14:33 Pulse Rate 85 04/09/17 14:33 Respiratory Rate 20 04/09/17 14:33 Blood Pressure 135/71 04/09/17 14:33 O2 Sat by Pulse Oximetry (%) 94 L 04/09/17 11:35 Constitutional: Yes: No Distress, Calm, Obese Cardiovascular: Yes: Regular Rate and Rhythm Respiratory: Yes: Regular, CTA Bilaterally Gastrointestinal: Yes: Normal Bowel Sounds, Soft Musculoskeletal: Yes: Joint Stiffness Extremities: Yes: Other Neurological: Yes: Alert, Oriented Psychiatric: Yes: Alert, Oriented Labs: CBC, BMP 04/09/17 08:35 04/09/17 08:35 INR, PTT INR 1.27 (0.82-1.09) H 04/05/17 12:20 Assessment/Plan patient evaluated patient is now bacteremic i doubt that this coming from the kidneys i am worried about other issues Problem List - Problems (1) CKD (chronic kidney disease) Code(s): N18.9 - CHRONIC KIDNEY DISEASE, UNSPECIFIED (2) Sepsis Code(s): A41.9 - SEPSIS, UNSPECIFIED ORGANISM Qualifiers: Sepsis type: Escherichia coli Qualified Code(s): A41.51 - Sepsis due to Escherichia coli [E. coli] (3) UTI (urinary tract infection) Code(s): N39.0 - URINARY TRACT INFECTION, SITE NOT SPECIFIED Qualifiers: Urinary tract infection type: acute cystitis Hematuria presence: without hematuria Qualified Code(s): N30.00 - Acute cystitis without hematuria (4) Anemia Code(s): D64.9 - ANEMIA, UNSPECIFIED Qualifiers: Iron deficiency anemia type: chronic blood loss (5) Diabetes Code(s): E11.9 - TYPE 2 DIABETES MELLITUS WITHOUT COMPLICATIONS (6) Elevated BUN Code(s): R79.9 - ABNORMAL FINDING OF BLOOD CHEMISTRY, UNSPECIFIED (7) Elevated serum creatinine Code(s): R79.89 - OTHER SPECIFIED ABNORMAL FINDINGS OF BLOOD CHEMISTRY (8) HTN (hypertension) Code(s): I10 - ESSENTIAL (PRIMARY) HYPERTENSION (9) CVA (cerebral vascular accident) Code(s): I63.9 - CEREBRAL INFARCTION, UNSPECIFIED (10) Proteinuria Code(s): R80.9 - PROTEINURIA, UNSPECIFIED (11) Leukocytosis Code(s): D72.829 - ELEVATED WHITE BLOOD CELL COUNT, UNSPECIFIED plan continue current abx continue monitoring the leg rest ct as per primary
--- NOTE | 2017-04-09 17:17 | CON.CARD ---
Cardiology Consult (text) - Consultation Consultation Note: CC: bacteremia 76 yo with h/o HTN, HL CVA (Rt hemiparesis), CKD, diastolic chf, IDDM, SHANE, anemia, COPD, hypothyroid, obesity admitted with uti and bacteremia. s/p IVF on admit. ongoing abx. --> endorses worsening le edema and sob. mild orthopnea h/o dysphagia. still states she feels food sometimes gets stuck in throat. h/o GIB but not thought to be upper Since admit, no recurrence of fever, wbc trending down. per notes, no clear source for bacteremia. no cp, palps, dizziness, bleeding, new transient neurologic symptoms, no chills, sweats, headache, cough, congestion, rash, visual distrubance pmhx/pshx: per hpi social hx: former smoker fam hx: no premature cad ros: per hpi Ambulatory Orders Atorvastatin Ca [Lipitor] 40 mg PO HS #7 tablet 08/05/12 Amlodipine Besylate [Norvasc -] 10 mg PO DAILY 03/02/16 Docusate Sodium [Colace -] 100 mg PO DAILY 08/09/16 Insulin Aspart [Novolog Flexpen] 100 unit SQ ASDIR 08/09/16 Insulin (Levemir) [Levemir Vial] 25 units SQ HS ml 08/27/16 Isosorbide Mononitrate [Imdur -] 30 mg PO DAILY tab.sr.24h 08/27/16 Levothyroxine [Synthroid -] 88 mcg PO AM tablet 08/27/16 Aspirin [ASA -] 81 mg PO DAILY 04/05/17 Montelukast Na [Singulair -] 10 mg PO DAILY 04/06/17 Amlodipine Besylate [Norvasc -] 5 mg PO DAILY 04/08/17 Atorvastatin Ca [Lipitor] 40 mg PO HS 04/08/17 Carvedilol [Coreg -] 25 mg PO BID 04/08/17 Duloxetine HCl [Cymbalta] 30 mg PO DAILY 04/08/17 Furosemide [Lasix] 40 mg PO DAILY 04/08/17 Current Medications Acetaminophen (Tylenol -) 650 mg PO Q6H PRN PRN Reason: PAIN OR FEVER Last Admin: 04/07/17 18:50 Dose: 650 mg Albuterol Sulfate (Ventolin 0.083% Nebulizer Soln -) 1 amp NEB Q6H PRN PRN Reason: SHORT OF BREATH/WHEEZING Albuterol/Ipratropium (Duoneb -) 1 amp NEB QIDR [facility] Last Admin: 04/09/17 11:35 Dose: 1 amp Amlodipine Besylate (Norvasc -) 10 mg PO DAILY [facility] Last Admin: 04/09/17 10:23 Dose: 10 mg Aspirin (Asa -) 81 mg PO DAILY [facility] Last Admin: 04/09/17 10:23 Dose: 81 mg Atorvastatin Calcium (Lipitor -) 40 mg PO HS [facility] Last Admin: 04/08/17 22:56 Dose: 40 mg Docusate Sodium (Colace -) 100 mg PO DAILY [facility] Last Admin: 04/09/17 10:23 Dose: 100 mg Heparin Sodium (Porcine) (Heparin -) 5,000 unit SQ BID [facility] Last Admin: 04/09/17 10:23 Dose: 5,000 unit Ceftriaxone Sodium (Rocephin 2gm Ivpb (Pre-Docked)) 100 mls @ 200 mls/hr IVPB DAILY [facility] Last Admin: 04/09/17 10:23 Dose: 200 mls/hr Insulin Aspart (Novolog Vial Sliding Scale -) 1 vial SQ ACHS [facility] PRN Reason: Protocol Last Admin: 04/09/17 17:04 Dose: Not Given Insulin Detemir (Levemir Vial) 25 units SQ HS [facility] Last Admin: 04/08/17 22:55 Dose: 25 units Isosorbide Mononitrate (Imdur -) 30 mg PO DAILY [facility] Last Admin: 04/09/17 10:23 Dose: 30 mg Levothyroxine Sodium (Synthroid -) 88 mcg PO AM [facility] Last Admin: 04/09/17 06:32 Dose: 88 mcg Montelukast Sodium (Singulair -) 10 mg PO HS [facility] Last Admin: 04/08/17 22:56 Dose: 10 mg Nystatin (Mycostatin Cream -) 1 applic TP QID [facility] Last Admin: 04/09/17 17:04 Dose: 1 applic Prednisone (Deltasone -) 40 mg PO DAILY [facility] Fluticasone/Salmeterol (Advair 100mcg/50mcg -) 1 puff IH BID [facility] Trazodone HCl (Desyrel -) 25 mg PO ONCE ONE Stop: 04/09/17 20:01 Vital Signs - 24 hr 04/08/17 04/08/17 04/08/17 17:45 18:43 21:00 Temperature 99.1 F Pulse Rate 85 Respiratory 22 Rate Blood Pressure 123/58 O2 Sat by Pulse 94 L 94 L Oximetry (%) 04/08/17 04/09/17 04/09/17 23:04 02:00 06:00 Temperature 98.0 F 98.0 F Pulse Rate 82 66 Respiratory 22 20 Rate Blood Pressure 120/66 145/61 O2 Sat by Pulse 98 Oximetry (%) 04/09/17 04/09/17 04/09/17 09:00 10:00 11:35 Temperature 98.8 F Pulse Rate 80 Respiratory 20 Rate Blood Pressure 146/64 O2 Sat by Pulse 95 94 L Oximetry (%) 04/09/17 14:33 Temperature 99.3 F Pulse Rate 85 Respiratory 20 Rate Blood Pressure 135/71 O2 Sat by Pulse Oximetry (%) Intake & Output 04/07/17 04/08/17 04/09/17 04/10/17 07:59 07:59 07:59 07:59 Intake Total 539 280 8224 Balance 209 164 3244 Weight 280 lb nad, calm + conversational dyspnea? jvd elevated, neck supple bibasilar crackles, nl effort RRR nl s1, s2 no mrg + bs soft nt nd obese ext with trace - 1+ dependent edema to sacrum + dp/pt no carotid bruit aaox3 no jaundice, diaphoresis CBC, BMP 04/09/17 08:35 04/09/17 08:35 Microbiology 04/05/17 21:09 Urine - Urine Clean Catch Urine Culture - Final Escherichia Coli 04/05/17 12:18 Blood - Peripheral Venous Blood Culture - Final Beta Hem Streptococcus Group G 04/05/17 12:18 Blood - Peripheral Venous Blood Culture - Final Beta Hem Streptococcus Group G Laboratory Tests 08/09/16 04/05/17 04/05/17 21:16 12:20 19:50 Magnesium Total Bilirubin AST ALT Alkaline Phosphatase B-Natriuretic Peptide 518 H Troponin I < 0.02 < 0.02 Albumin 04/06/17 04/08/17 05:35 06:15 Magnesium 2.9 H Total Bilirubin 0.5 AST 36 ALT 24 Alkaline Phosphatase 90 B-Natriuretic Peptide 1335.01 H Troponin I Albumin 2.7 L echo 03/2017: tds. grossly nl lv/rv. mac. TV/MV/PV not well seen. MAC, no mr , 1+ tr. no ar. cxr: clear lung zuleta ekg: nsr. new non-specific diffuse twave ab 76 yo with h/o HTN, HL CVA (Rt hemiparesis), CKD, diastolic chf, IDDM, SHANE, anemia, COPD, hypothyroid, obesity admitted with uti and bacteremia. bacteremia - no clear source. TTE tds. Plan for further evaluation for endocarditis with VERONICA. If endocarditis present, will change antibiotic course/duration - patient with h/o dysphagia and currently endorsing sx's of food getting stuck in throat. Since patient is clinically stable, will plan on further evaluation with esophagram in the am to rule out structural abnormalities prior to VERONICA. Patient also appears volume overload with subjective worsening of sob. In the past her kidney function has worsened with increased diuresis. Will discuss with renal tomorrow regarding whether or not to resume home lasix dose. CXR in the am. Ideally would optimize respiratory status as well (if possible) prior to VERONICA. daily weights. i/o's. bmp. diastolic HF - as above hl - on atorva 40 htn - on norvasc 10, imdur 30 coreg 25 bid, lasix 40 daily as outpatient. Here only on norvasc, imdur. Initially on admit bp's on low end, now normalizing. Will plan on adding back low dose coreg 3.125 bid in the am. cva - on asa, statin CKD - ongoing management per renal. shane - on bipap at night
[2017-04-09] MEDS ORDERED: traZODone HCL 50 MG TABLET (FP) PO ONE ×2 (20:00→22:45)
[2017-04-09] MEDS: FLUTICASONE/SALMETEROL 100 MCG/50 MCG DISKUS IH SCH (22:33)
[2017-04-09] MEDS: MONTELUKAST NA 10 MG TABLET PO SCH (22:34)
[2017-04-09] MEDS: INSULIN DETEMIR 100 UNITS/ML MDV SQ SCH (22:34)
[2017-04-09] MEDS: ATORVASTATIN CA 40 MG TABLET (FP) PO SCH (22:34)
[2017-04-10] MEDS ORDERED: MELATONIN 5 MG TABLETS PO ONE (00:39)
[2017-04-10] MEDS: ACETAMINOPHEN 325 MG TABLET (FP) PO PRN (00:50)
--- NOTE | 2017-04-10 05:21 | HOSP ---
Physical Examination Vital Signs: Vital Signs Temperature 99.4 F 04/09/17 23:57 Pulse Rate 88 04/09/17 23:57 Respiratory Rate 20 04/09/17 23:57 Blood Pressure 136/82 04/09/17 23:57 O2 Sat by Pulse Oximetry (%) 97 04/09/17 18:20 Labs: CBC, BMP 04/09/17 08:35 04/09/17 08:35 Hospitalist Encounter Assessment: Patient is a 76 year old female with a PMHx of CVA with residual right sided weakness, asthma, CAD s/p stents, Diastolic Congestive Heart Failure, IDDMII, HTN, CKD who presented with abdominal pain and was admitted for Sepsis secondary to UTI/Pyelonephritis and was found to be bacteremic. Notified by RN that patient is experiencing pain on her right lower extremity. When I arrived patient reports extreme pain and tenderness of the area that has been worsening throughout the evening. VITALS: BP: 133/84 HR: 88 BPM 02 Sat: 97% 2L NC TEMP: 99.4 PHYSICAL EXAM: GENERAL: Awake, Alert, mild painful distress LUNGS: bibasilar crackles throughout lung bases HEART: RRR, Normal S1 and S2 LOWER EXTREMITY: 1+ Pitting edema of bilateral legs with increased swelling, erythema, and warmth of the right lower extremity. [id number] erythemetous, warm, firm/tense rash with extreme tenderness upon palpation in the right mid-inner thigh. ASSESSMENT & PLAN Cellulitis of Right Mid-Inner Thigh, r/o DVT -Duplex of right leg ordered -Melatonin 5mg ordered before Duplex due to anxiety -Pain control PRN -Will endorse to Day team to inform ID -Continue to monitor vitals Visit type - Emergency Visit Emergency Visit: Yes ED Registration Date: 04/05/17 Care time: The patient presented to the Emergency Department on the above date and was hospitalized for further evaluation of their emergent condition. - New Patient This patient is new to me today: Yes Date on this admission: 04/10/17 - Critical Care Critical Care patient: No
[2017-04-10] MEDS: ALBUTEROL SO4 2.5/IPRATROPIUM 0.5 INH SOL 3 ML VIAL.NEB. NEB SCH ×4 (06:24→23:01)
[2017-04-10] MEDS: LEVOTHYROXINE NA 88 MCG TABLET (FP) PO SCH ×2 (06:34→06:38)
[2017-04-10] MEDS: INSULIN SLIDING SCALE (NOVOLOG) 1 VIAL SQ SCH ×4 (06:34→23:44)
[2017-04-10] MEDS ORDERED: PT OWN MED DRAWER 7, Y5N ONE ×2 (06:48→23:33)
[2017-04-10 07:01] LABS: MCH 27.4 pg (25.7-33.7); MCHC 32.6 g/dl (32.0-36.0); MEAN CELL VOLUME 83.9 fl (80-96); MEAN PLT VOLUME 9.1 fl (7.5-11.1); PLATELET COUNT 178 K/MM3 (134-434); RDW 15.4 % (11.6-15.6); WHITE BLOOD COUNT 12.1 K/mm3 (4.0-10.0)
[2017-04-10 07:21] LABS: ANION GAP 8 (8-16); CALCIUM 8.7 mg/dL (8.5-10.1); CO2 28 mmol/L (21-32); CREATININE 2.9 mg/dL (0.55-1.02); GLUCOSE,RANDOM 90 mg/dL (74-106)
[2017-04-10] MEDS: FLUTICASONE/SALMETEROL 100 MCG/50 MCG DISKUS IH SCH ×2 (11:38→23:41)
[2017-04-10] MEDS: ASPIRIN 81 MG CHEWABLE TABLETS PO SCH (11:38)
[2017-04-10] MEDS: predniSONE 20 MG TABLET (UD) PO SCH (11:38)
[2017-04-10] MEDS: amLODIPine BESYLATE 10 MG TABLET (FP) PO SCH (11:38)
[2017-04-10] MEDS: DOCUSATE SODIUM 100 MG CAPSULE (FP) PO SCH (11:38)
[2017-04-10] MEDS: ISOSORBIDE MONONITRATE 30 MG TAB.SR.24H (FP) PO SCH (11:38)
[2017-04-10] MEDS: NYSTATIN 100,000 UNIT/GM TOPICAL CREAM 15 GM TUBE TP SCH ×4 (11:39→23:41)
[2017-04-10] MEDS: CEFTRIAXONE 100 ML IVPB SCH (11:39)
[2017-04-10] MEDS: HEPARIN NA (PORCINE) 5,000 UNITS/ML 1ML VIAL SQ SCH ×2 (11:39→23:41)
[2017-04-10] MEDS: CARVEDILOL 3.125 MG TABLET (FP) PO SCH ×2 (11:39→23:41)
[2017-04-10] MEDS: FUROSEMIDE 40 MG TABLET (FP) PO SCH (13:56)
--- NOTE | 2017-04-10 14:24 | PN ---
Physical Exam: SUBJECTIVE: Patient seen and examined at bedside. Hospitalist encounter overnight. Pt was experiencing pain in the right lower extremity. call or contact centre operator resident saw and examined the patient and ruled out DVT by U/S and gave pain control. Pt is feeling much better this morning. Pt complains of minor pain in left lower abdomen. No other complaints at this time. Pt denies fever, headache , cp, abdominal pain, nausea, vomiting, diarrhea, dysuria. OBJECTIVE: Vital Signs Period Temp Pulse Resp BP Sys/Mike Pulse Ox Last 24 Hr 98.0 F-99.4 F 75-88 20-22 112-140/64-82 96-97 GENERAL: The patient is awake, alert, and fully oriented, in no acute distress. HEAD: Normal with no signs of trauma. EYES: extraocular grossly movements intact, sclera anicteric, conjunctiva clear. No ptosis. ENT:oropharynx clear without exudates, moist mucous membranes. NECK: JVD Trachea midline, full range of motion, supple. LUNGS: mild late expiratory wheeze. much improved on breathing treatments. Breath sounds equal, clear to auscultation bilaterally, no crackles, no accessory muscle use. HEART: Regular rate and rhythm, normal S1, S2 without murmur, rub or gallop. ABDOMEN: obese Soft, nontender, nondistended, normoactive bowel sounds, no guarding, no rebound, no hepatosplenomegaly, no masses. EXTREMITIES: 2+ pulses, warm, well-perfused, 2+ edema R>L. NEUROLOGICAL: Cranial nerves II through XII grossly intact. Normal speech, gait not observed. PSYCH: Normal mood, normal affect. SKIN: region of redness and tenderness on R inner thigh Laboratory Results - last 24 hr 04/09/17 04/09/17 04/09/17 14:30 14:30 17:02 WBC RBC Hgb Hct MCV MCH MCHC RDW Plt Count MPV Neutrophils % Lymphocytes % Monocytes % Eosinophils % Basophils % Band Neutrophils Differential Comment Sodium Potassium Chloride Carbon Dioxide Anion Gap BUN Creatinine POC Glucometer 123 Random Glucose Calcium Magnesium U Random Total Protein 109 H Urine Creatinine 98.2 04/09/17 04/10/17 04/10/17 22:41 05:40 05:40 WBC 12.1 H RBC 3.02 L Hgb 8.3 L Hct 25.4 L MCV 83.9 MCH 27.4 MCHC 32.6 RDW 15.4 Plt Count 178 MPV 9.1 Neutrophils % 62.0 Lymphocytes % 22.0 Monocytes % 5.0 Eosinophils % 7.0 H Basophils % 1.0 Band Neutrophils 3.0 D Differential Comment Slide scanned Sodium 137 Potassium 4.0 Chloride 101 Carbon Dioxide 28 Anion Gap 8 BUN 64 H Creatinine 2.9 H POC Glucometer 140 Random Glucose 90 D Calcium 8.7 Magnesium 3.0 H U Random Total Protein Urine Creatinine 04/10/17 04/10/17 06:33 11:59 WBC RBC Hgb Hct MCV MCH MCHC RDW Plt Count MPV Neutrophils % Lymphocytes % Monocytes % Eosinophils % Basophils % Band Neutrophils Differential Comment Sodium Potassium Chloride Carbon Dioxide Anion Gap BUN Creatinine POC Glucometer 112 102 Random Glucose Calcium Magnesium U Random Total Protein Urine Creatinine Active Medications Generic Name Dose Route Start Last Admin Trade Name Freq PRN Reason Stop Dose Admin Acetaminophen 650 mg 04/05/17 17:56 04/10/17 00:50 Tylenol - PO 650 mg Q6H PRN Administration PAIN OR FEVER Albuterol Sulfate 1 amp 04/05/17 18:59 Ventolin 0.083% Nebulizer Soln - NEB Q6H PRN SHORT OF BREATH/WHEEZING Albuterol/Ipratropium 1 amp 04/06/17 12:00 04/10/17 12:02 Duoneb - NEB 1 amp QIDR [facility] Administration Amlodipine Besylate 10 mg 04/06/17 10:00 04/10/17 11:38 Norvasc - PO 10 mg DAILY [facility] Administration Aspirin 81 mg 04/06/17 10:00 04/10/17 11:38 Asa - PO 81 mg DAILY [facility] Administration Atorvastatin Calcium 40 mg 04/05/17 22:00 04/09/17 22:34 Lipitor - PO 40 mg HS [facility] Administration Carvedilol 3.125 mg 04/10/17 10:00 04/10/17 11:39 Coreg - PO 3.125 mg BID [facility] Administration Docusate Sodium 100 mg 04/06/17 10:00 04/10/17 11:38 Colace - PO 100 mg DAILY [facility] Administration Furosemide 40 mg 04/10/17 11:45 04/10/17 13:56 Lasix - PO 40 mg DAILY [facility] Administration Heparin Sodium (Porcine) 5,000 unit 04/05/17 22:00 04/10/17 11:39 Heparin - SQ 5,000 unit BID [facility] Administration Ceftriaxone Sodium 100 mls @ 200 mls/hr 04/06/17 10:00 04/10/17 11:39 Rocephin 2gm Ivpb (Pre-Docked) IVPB 200 mls/hr DAILY [facility] Administration Insulin Aspart 1 vial 04/05/17 22:00 04/10/17 12:06 Novolog Vial Sliding Scale - SQ Not Given ACHS [facility] Protocol Insulin Detemir 25 units 04/05/17 22:00 04/09/17 22:34 Levemir Vial SQ Not Given HS [facility] Isosorbide Mononitrate 30 mg 04/06/17 10:00 04/10/17 11:38 Imdur - PO 30 mg DAILY [facility] Administration Levothyroxine Sodium 88 mcg 04/06/17 07:00 04/10/17 06:38 Synthroid - PO Not Given AM [facility] Montelukast Sodium 10 mg 04/06/17 22:00 04/09/17 22:34 Singulair - PO 10 mg HS [facility] Administration Nystatin 1 applic 04/06/17 10:00 04/10/17 13:56 Mycostatin Cream - TP 1 applic QID [facility] Administration Prednisone 40 mg 04/10/17 10:00 04/10/17 11:38 Deltasone - PO 40 mg DAILY [facility] Administration Fluticasone/Salmeterol 1 puff 04/09/17 22:00 04/10/17 11:38 Advair 100mcg/50mcg - IH 1 puff BID [facility] Administration ASSESSMENT/PLAN: This is a 76 y/o F with PMH obesity, cva (with residual right sided weakness), asthma, ckd, cad (s/p cardiac cath), DM, HTN, thyroid disease, GI bleed with anemia (s/p transfusion in the past) who presented to the ED with left abdominal and flank pain. #Sepsis -blood and urine cultures are positive for different organisms. Thus, sepsis secondary to UTI is unlikely. Throat without erythema -vitals in ED: temp 102.5, BP 138/90, HR 71, O2 sat 100% -in ED, pt received 1 dose Vanco 250mg IVPB, NS 2600ml, acetaminophen 1000mg IVPB, UA (+1 prot, +1 blood, +1 LE, RBC < 1, WBC 15), urine culture, blood culture -Blood cultures show Group B Strep. Repeat cultures negative -Urine cultures show E. coli -Acetaminophen 650mg Q6H PRN -Ceftriaxone 2gm Daily -Recent hospitalist encounter: u/s ruled out DVT. Cellulitis of inner R thigh is resolving with Abx. Will continue. #Pyelonephritis -Nephro consult (Dr. Zamorano) appreciated. -Renal U/S pending. Pt is refusing. Would not explain why. -Urine cultures show E. 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
--- NOTE | 2017-04-10 14:48 | PN ---
Progress Note, Physician History of Present Illness: patient feeling better was having pain at the right thigh dvt studies done negative still has pain at that site - Current Medication List Current Medications: Active Medications Acetaminophen (Tylenol -) 650 mg PO Q6H PRN PRN Reason: PAIN OR FEVER Last Admin: 04/10/17 00:50 Dose: 650 mg Albuterol Sulfate (Ventolin 0.083% Nebulizer Soln -) 1 amp NEB Q6H PRN PRN Reason: SHORT OF BREATH/WHEEZING Albuterol/Ipratropium (Duoneb -) 1 amp NEB QIDR [facility] Last Admin: 04/10/17 12:02 Dose: 1 amp Amlodipine Besylate (Norvasc -) 10 mg PO DAILY [facility] Last Admin: 04/10/17 11:38 Dose: 10 mg Aspirin (Asa -) 81 mg PO DAILY [facility] Last Admin: 04/10/17 11:38 Dose: 81 mg Atorvastatin Calcium (Lipitor -) 40 mg PO HS [facility] Last Admin: 04/09/17 22:34 Dose: 40 mg Carvedilol (Coreg -) 3.125 mg PO BID [facility] Last Admin: 04/10/17 11:39 Dose: 3.125 mg Docusate Sodium (Colace -) 100 mg PO DAILY [facility] Last Admin: 04/10/17 11:38 Dose: 100 mg Furosemide (Lasix -) 40 mg PO DAILY [facility] Last Admin: 04/10/17 13:56 Dose: 40 mg Heparin Sodium (Porcine) (Heparin -) 5,000 unit SQ BID [facility] Last Admin: 04/10/17 11:39 Dose: 5,000 unit Ceftriaxone Sodium (Rocephin 2gm Ivpb (Pre-Docked)) 100 mls @ 200 mls/hr IVPB DAILY [facility] Last Admin: 04/10/17 11:39 Dose: 200 mls/hr Insulin Aspart (Novolog Vial Sliding Scale -) 1 vial SQ ACHS [facility] PRN Reason: Protocol Last Admin: 04/10/17 12:06 Dose: Not Given Insulin Detemir (Levemir Vial) 25 units SQ HS [facility] Last Admin: 04/09/17 22:34 Dose: Not Given Isosorbide Mononitrate (Imdur -) 30 mg PO DAILY [facility] Last Admin: 04/10/17 11:38 Dose: 30 mg Levothyroxine Sodium (Synthroid -) 88 mcg PO AM [facility] Last Admin: 04/10/17 06:38 Dose: Not Given Montelukast Sodium (Singulair -) 10 mg PO HS [facility] Last Admin: 04/09/17 22:34 Dose: 10 mg Nystatin (Mycostatin Cream -) 1 applic TP QID [facility] Last Admin: 04/10/17 13:56 Dose: 1 applic Prednisone (Deltasone -) 40 mg PO DAILY [facility] Last Admin: 04/10/17 11:38 Dose: 40 mg Fluticasone/Salmeterol (Advair 100mcg/50mcg -) 1 puff IH BID [facility] Last Admin: 04/10/17 11:38 Dose: 1 puff - Objective Vital Signs: Vital Signs Temperature 98.4 F 04/10/17 14:28 Pulse Rate 78 04/10/17 14:28 Respiratory Rate 18 04/10/17 14:28 Blood Pressure 131/62 04/10/17 14:28 O2 Sat by Pulse Oximetry (%) 96 04/10/17 12:01 Constitutional: Yes: No Distress, Calm, Obese Respiratory: Yes: Regular, CTA Bilaterally Gastrointestinal: Yes: Normal Bowel Sounds, Soft Musculoskeletal: Yes: WNL Extremities: Yes: Other (pain at the thigh) Neurological: Yes: Alert, Oriented Psychiatric: Yes: Alert, Oriented Labs: CBC, BMP 04/10/17 05:40 04/10/17 05:40 INR, PTT INR 1.27 (0.82-1.09) H 04/05/17 12:20 - ....Imaging Other: Report Reviewed, Image Reviewed Assessment/Plan patient evaluated patient is now bacteremic i doubt that this coming from the kidneys i am worried about other issues Problem List - Problems (1) CKD (chronic kidney disease) Code(s): N18.9 - CHRONIC KIDNEY DISEASE, UNSPECIFIED (2) Sepsis Code(s): A41.9 - SEPSIS, UNSPECIFIED ORGANISM Qualifiers: Sepsis type: Escherichia coli Qualified Code(s): A41.51 - Sepsis due to Escherichia coli [E. coli] (3) UTI (urinary tract infection) Code(s): N39.0 - URINARY TRACT INFECTION, SITE NOT SPECIFIED Qualifiers: Urinary tract infection type: acute cystitis Hematuria presence: without hematuria Qualified Code(s): N30.00 - Acute cystitis without hematuria (4) Anemia Code(s): D64.9 - ANEMIA, UNSPECIFIED Qualifiers: Iron deficiency anemia type: chronic blood loss (5) Diabetes Code(s): E11.9 - TYPE 2 DIABETES MELLITUS WITHOUT COMPLICATIONS (6) Elevated BUN Code(s): R79.9 - ABNORMAL FINDING OF BLOOD CHEMISTRY, UNSPECIFIED (7) Elevated serum creatinine Code(s): R79.89 - OTHER SPECIFIED ABNORMAL FINDINGS OF BLOOD CHEMISTRY (8) HTN (hypertension) Code(s): I10 - ESSENTIAL (PRIMARY) HYPERTENSION (9) CVA (cerebral vascular accident) Code(s): I63.9 - CEREBRAL INFARCTION, UNSPECIFIED (10) Proteinuria Code(s): R80.9 - PROTEINURIA, UNSPECIFIED (11) Leukocytosis Code(s): D72.829 - ELEVATED WHITE BLOOD CELL COUNT, UNSPECIFIED plan continue current abx all result reviewed slow resolution of the erythema might add clinda tomorrow after seeing the leg
--- NOTE | 2017-04-10 16:22 | PN ---
Progress Note, Physician Chief Complaint: The patient seen in her bed. Comfortable. Has some pain in her right LE. H/O Right sided paralysis, CVA. Bed-ridden at home/ had chronic underlying CKD No chest pains. Respiratory status better. - Current Medication List Current Medications: Active Medications Acetaminophen (Tylenol -) 650 mg PO Q6H PRN PRN Reason: PAIN OR FEVER Last Admin: 04/10/17 00:50 Dose: 650 mg Albuterol Sulfate (Ventolin 0.083% Nebulizer Soln -) 1 amp NEB Q6H PRN PRN Reason: SHORT OF BREATH/WHEEZING Albuterol/Ipratropium (Duoneb -) 1 amp NEB QIDR [facility] Last Admin: 04/10/17 12:02 Dose: 1 amp Amlodipine Besylate (Norvasc -) 10 mg PO DAILY [facility] Last Admin: 04/10/17 11:38 Dose: 10 mg Aspirin (Asa -) 81 mg PO DAILY [facility] Last Admin: 04/10/17 11:38 Dose: 81 mg Atorvastatin Calcium (Lipitor -) 40 mg PO HS [facility] Last Admin: 04/09/17 22:34 Dose: 40 mg Carvedilol (Coreg -) 3.125 mg PO BID [facility] Last Admin: 04/10/17 11:39 Dose: 3.125 mg Docusate Sodium (Colace -) 100 mg PO DAILY [facility] Last Admin: 04/10/17 11:38 Dose: 100 mg Furosemide (Lasix -) 40 mg PO DAILY [facility] Last Admin: 04/10/17 13:56 Dose: 40 mg Heparin Sodium (Porcine) (Heparin -) 5,000 unit SQ BID [facility] Last Admin: 04/10/17 11:39 Dose: 5,000 unit Ceftriaxone Sodium (Rocephin 2gm Ivpb (Pre-Docked)) 100 mls @ 200 mls/hr IVPB DAILY [facility] Last Admin: 04/10/17 11:39 Dose: 200 mls/hr Insulin Aspart (Novolog Vial Sliding Scale -) 1 vial SQ ACHS [facility] PRN Reason: Protocol Last Admin: 04/10/17 12:06 Dose: Not Given Insulin Detemir (Levemir Vial) 25 units SQ HS [facility] Last Admin: 04/09/17 22:34 Dose: Not Given Isosorbide Mononitrate (Imdur -) 30 mg PO DAILY [facility] Last Admin: 04/10/17 11:38 Dose: 30 mg Levothyroxine Sodium (Synthroid -) 88 mcg PO AM [facility] Last Admin: 04/10/17 06:38 Dose: Not Given Montelukast Sodium (Singulair -) 10 mg PO HS [facility] Last Admin: 04/09/17 22:34 Dose: 10 mg Nystatin (Mycostatin Cream -) 1 applic TP QID [facility] Last Admin: 04/10/17 13:56 Dose: 1 applic Prednisone (Deltasone -) 40 mg PO DAILY [facility] Last Admin: 04/10/17 11:38 Dose: 40 mg Fluticasone/Salmeterol (Advair 100mcg/50mcg -) 1 puff IH BID [facility] Last Admin: 04/10/17 11:38 Dose: 1 puff - Objective Vital Signs: Vital Signs Temperature 98.4 F 04/10/17 14:28 Pulse Rate 78 04/10/17 14:28 Respiratory Rate 18 04/10/17 14:28 Blood Pressure 131/62 04/10/17 14:28 O2 Sat by Pulse Oximetry (%) 96 04/10/17 12:01 Constitutional: Yes: Well Nourished, Calm Eyes: Yes: Conjunctiva Clear HENT: Yes: Atraumatic Neck: Yes: Supple Cardiovascular: Yes: Regular Rate and Rhythm, S1, S2 Respiratory: Yes: Regular, Diminished, Poor Air Entry Gastrointestinal: Yes: Normal Bowel Sounds, Abdomen, Obese Musculoskeletal: Yes: Joint Stiffness Extremities: Yes: Other (Right sided weakness with right foot drop. Edema 1+) Neurological: Yes: Alert, Oriented Labs: CBC, BMP 04/10/17 05:40 04/10/17 05:40 INR, PTT INR 1.27 (0.82-1.09) H 04/05/17 12:20 Problem List - Problems (1) CKD (chronic kidney disease) Code(s): N18.9 - CHRONIC KIDNEY DISEASE, UNSPECIFIED (2) CVA (cerebral vascular accident) Code(s): I63.9 - CEREBRAL INFARCTION, UNSPECIFIED (3) Proteinuria Code(s): R80.9 - PROTEINURIA, UNSPECIFIED (4) UTI (urinary tract infection) Code(s): N39.0 - URINARY TRACT INFECTION, SITE NOT SPECIFIED Qualifiers: Urinary tract infection type: acute cystitis Hematuria presence: without hematuria Qualified Code(s): N30.00 - Acute cystitis without hematuria (5) Anemia Code(s): D64.9 - ANEMIA, UNSPECIFIED Qualifiers: Iron deficiency anemia type: chronic blood loss (6) COPD (chronic obstructive pulmonary disease) Code(s): J44.9 - CHRONIC OBSTRUCTIVE PULMONARY DISEASE, UNSPECIFIED (7) Diabetes Code(s): E11.9 - TYPE 2 DIABETES MELLITUS WITHOUT COMPLICATIONS (8) HTN (hypertension) Code(s): I10 - ESSENTIAL (PRIMARY) HYPERTENSION (9) Weakness Code(s): R53.1 - WEAKNESS Assessment/Plan 76 y/o female with multiple medical problems: 1. Underlying CKD 4. Azotemia at baseline. 2. KING resolving. Maintains good urine output. 3. Anemia. Profound. To a large extend due to advanced CKD. ? Procrit. Thank you. Will monitor the renal functions with you. Pauline Velazquez MD
[2017-04-10] MEDS: CLINDAMYCIN 300 MG PREMIX IVPB 50 ML IVPB SCH (18:16)
--- NOTE | 2017-04-10 18:49 | PN ---
Teaching Attending Note Name of Resident: Mark Garcia ATTENDING PHYSICIAN STATEMENT I saw and evaluated the patient. I reviewed the resident's note and discussed the case with the resident. I agree with the resident's findings and plan as documented. SUBJECTIVE: no fever or chills , she feels better , her R leg is less painful compared to yesterday OBJECTIVE: NAD , CV : RRR, JVD is noted today Lungs : minimal wheezing , much improved form before . Abd : soft, NT, ND , NL BS Ext: RLE , with increased circumference , edema and erythema on R medial lower thigh has become darker pigmentation , with decreased tenderness to touch and decreased warmth DP 2+ b/l R sided hemiparesis A/P 76-year-old female with history of CVA (residual R-saima paresis, slurred speech ), Asthma, DM Type II, COPD, CKD Stage 4, Pneumonia, PVD, HTN, Chronic R- lower extremity edema presented LUQ pain. She was found to have Pyelonephritis and Strep bacteremia 1- Pyelonephritis : with E coli . improved . cont rocephin 2- Strep bacteremia : possibly the R medial lower thigh erythematous area represents cellulitis as it has changes in color . That could be the source - d/w Dr. Singh, add clindamycin - cont CTX . - increased WBC could be due to steroids initiation yesterday - for VERONICA on Thursday 3- Mild COPD exacerbation. day 2 of prednisone 40 mg , will taper quickly cont advair cont Nebs and singular 4- h/o DCHF: today pt looks fluid overloaded, has JVD. - resume her PO home lasix - cont coreg , and imdur 5- CKD IV, stable renal function . monitor not on ACEI /ARB 6- HTN, cont norvasc. cont coreg , imdur and norvasc HLOC
[2017-04-10] MEDS: INSULIN DETEMIR 100 UNITS/ML MDV SQ SCH (23:41)
[2017-04-10] MEDS: ATORVASTATIN CA 40 MG TABLET (FP) PO SCH (23:41)
[2017-04-10] MEDS: MONTELUKAST NA 10 MG TABLET PO SCH (23:42)
[2017-04-11] MEDS: CLINDAMYCIN 300 MG PREMIX IVPB 50 ML IVPB SCH ×3 (02:08→17:23)
[2017-04-11] MEDS: ALBUTEROL SO4 2.5/IPRATROPIUM 0.5 INH SOL 3 ML VIAL.NEB. NEB SCH ×4 (06:42→23:08)
[2017-04-11] MEDS: LEVOTHYROXINE NA 88 MCG TABLET (FP) PO SCH (06:50)
[2017-04-11] MEDS: INSULIN SLIDING SCALE (NOVOLOG) 1 VIAL SQ SCH ×4 (06:53→21:54)
[2017-04-11 07:45] LABS: ANION GAP 9 (8-16); CALCIUM 8.9 mg/dL (8.5-10.1); CO2 29 mmol/L (21-32); CREATININE 3.1 mg/dL (0.55-1.02); GLUCOSE,RANDOM 266 mg/dL (74-106)
[2017-04-11 07:50] LABS: MCH 27.5 pg (25.7-33.7); MCHC 32.5 g/dl (32.0-36.0); MEAN CELL VOLUME 84.6 fl (80-96); PLATELET COUNT 203 K/MM3 (134-434); RDW 15.4 % (11.6-15.6); WHITE BLOOD COUNT 15.2 K/mm3 (4.0-10.0)
[2017-04-11 09:00] LABS: PLATELET ESTIMATE ADEQUATE (NORMAL)
[2017-04-11] MEDS ORDERED: PT OWN MED DRAWER 7, Y5N ONE ×3 (10:01→16:45)
[2017-04-11] MEDS: ASPIRIN 81 MG CHEWABLE TABLETS PO SCH (10:07)
[2017-04-11] MEDS: FUROSEMIDE 40 MG TABLET (FP) PO SCH (10:07)
[2017-04-11] MEDS: DOCUSATE SODIUM 100 MG CAPSULE (FP) PO SCH (10:07)
[2017-04-11] MEDS: amLODIPine BESYLATE 10 MG TABLET (FP) PO SCH (10:07)
[2017-04-11] MEDS: ISOSORBIDE MONONITRATE 30 MG TAB.SR.24H (FP) PO SCH (10:07)
[2017-04-11] MEDS: CARVEDILOL 3.125 MG TABLET (FP) PO SCH ×2 (10:07→21:56)
[2017-04-11] MEDS: predniSONE 20 MG TABLET (UD) PO SCH (10:07)
[2017-04-11] MEDS: HEPARIN NA (PORCINE) 5,000 UNITS/ML 1ML VIAL SQ SCH ×2 (10:07→21:55)
[2017-04-11] MEDS: CEFTRIAXONE 100 ML IVPB SCH (10:08)
[2017-04-11] MEDS: NYSTATIN 100,000 UNIT/GM TOPICAL CREAM 15 GM TUBE TP SCH ×4 (10:08→22:05)
--- NOTE | 2017-04-11 11:30 | PN ---
Progress Note (short form) - Note Progress Note: s: no cp sob palps dizzy o: Vital Signs Period Temp Pulse Resp BP Sys/Mike Pulse Ox Last 24 Hr 97.7 F-98.6 F 76-87 18-20 105-131/50-102 96-98 nad, calm jvd elevated, neck supple cta bl nl effort RRR nl s1, s2 no mrg + bs soft nt nd obese ext with trace - 1+ dependent edema aaox3 no jaundice, diaphoresis Current Medications Generic Name Dose Route Start Last Admin Trade Name Freq PRN Reason Stop Dose Admin Acetaminophen 650 mg 04/05/17 17:56 04/10/17 00:50 Tylenol - PO 650 mg Q6H PRN Administration PAIN OR FEVER Albuterol Sulfate 1 amp 04/05/17 18:59 Ventolin 0.083% Nebulizer Soln - NEB Q6H PRN SHORT OF BREATH/WHEEZING Albuterol/Ipratropium 1 amp 04/06/17 12:00 04/11/17 11:08 Duoneb - NEB 1 amp QIDR [facility] Administration Amlodipine Besylate 10 mg 04/06/17 10:00 04/11/17 10:07 Norvasc - PO 10 mg DAILY [facility] Administration Aspirin 81 mg 04/06/17 10:00 04/11/17 10:07 Asa - PO 81 mg DAILY [facility] Administration Atorvastatin Calcium 40 mg 04/05/17 22:00 04/10/17 23:41 Lipitor - PO 40 mg HS [facility] Administration Carvedilol 3.125 mg 04/10/17 10:00 04/11/17 10:07 Coreg - PO 3.125 mg BID [facility] Administration Docusate Sodium 100 mg 04/06/17 10:00 04/11/17 10:07 Colace - PO 100 mg DAILY [facility] Administration Furosemide 40 mg 04/10/17 11:45 04/11/17 10:07 Lasix - PO 40 mg DAILY [facility] Administration Heparin Sodium (Porcine) 5,000 unit 04/05/17 22:00 04/11/17 10:07 Heparin - SQ 5,000 unit BID [facility] Administration Ceftriaxone Sodium 100 mls @ 200 mls/hr 04/06/17 10:00 04/11/17 10:08 Rocephin 2gm Ivpb (Pre-Docked) IVPB 200 mls/hr DAILY [facility] Administration Clindamycin Phosphate 50 mls @ 100 mls/hr 04/10/17 18:00 04/11/17 10:08 Cleocin 300 Mg Premix Ivpb IVPB 100 mls/hr Q8H-IV [facility] Administration Insulin Aspart 1 vial 04/05/17 22:00 04/11/17 06:53 Novolog Vial Sliding Scale - SQ 6 units ACHS [facility] Administration Protocol Insulin Detemir 25 units 04/05/17 22:00 04/10/17 23:41 Levemir Vial SQ 25 units HS [facility] Administration Isosorbide Mononitrate 30 mg 04/06/17 10:00 04/11/17 10:07 Imdur - PO 30 mg DAILY [facility] Administration Levothyroxine Sodium 88 mcg 04/06/17 07:00 04/11/17 06:50 Synthroid - PO 88 mcg AM [facility] Administration Montelukast Sodium 10 mg 04/06/17 22:00 04/10/17 23:42 Singulair - PO 10 mg HS [facility] Administration Nystatin 1 applic 04/06/17 10:00 04/11/17 10:08 Mycostatin Cream - TP 1 applic QID [facility] Administration Prednisone 40 mg 04/10/17 10:00 04/11/17 10:07 Deltasone - PO 40 mg DAILY [facility] Administration Fluticasone/Salmeterol 1 puff 04/09/17 22:00 04/10/17 23:41 Advair 100mcg/50mcg - I[facility] 1 puff BID [facility] Administration CBC, BMP 04/11/17 07:00 04/11/17 06:00 echo 03/2017: tds. grossly nl lv/rv. mac. TV/MV/PV not well seen. MAC, no mr , 1+ tr. no ar. cxr: clear lung zuleta ekg: nsr. new non-specific diffuse twave ab a/p: 76 yo with h/o HTN, HL CVA (Rt hemiparesis), CKD, diastolic chf, IDDM, SHANE , anemia, COPD, hypothyroid, obesity admitted with uti and bacteremia. bacteremia - no clear source. TTE tds. Plan for further evaluation for endocarditis with VERONICA on thursday at 2pm. If endocarditis present, it will change antibiotic course /duration diastolic HF -cxr clear -cont po lasix hld - on atorva htn -stable on current meds cva - on asa, statin CKD - ongoing management per renal. shane - on bipap at night
[2017-04-11] MEDS ORDERED: INSULIN (NOVOLOG) ASPART 100 UNITS/ML 10ML VIAL ONE (11:37)
--- NOTE | 2017-04-11 11:50 | PN ---
Progress Note (short form) - Note Progress Note: Subjective: feels better , has no SOB, R thigh pain has improved Objective: Vital Signs: Last Vital Signs Temp Pulse Resp BP Pulse Ox 97.7 F 76 18 105/50 98 04/11/17 05:00 04/11/17 11:07 04/11/17 05:00 04/11/17 05:00 04/11/17 11:07 Laboratory Results - last 24 hr 04/10/17 04/10/17 04/10/17 11:59 16:20 23:43 WBC RBC Hgb Hct MCV MCH MCHC RDW Plt Count MPV Neutrophils % Lymphocytes % Monocytes % Band Neutrophils Differential Comment Platelet Estimate Sodium Potassium Chloride Carbon Dioxide Anion Gap BUN Creatinine POC Glucometer 102 138 359 Random Glucose Calcium 04/11/17 04/11/17 04/11/17 06:00 06:52 07:00 WBC 15.2 H RBC 3.01 L Hgb 8.3 L Hct 25.5 L MCV 84.6 MCH 27.5 MCHC 32.5 RDW 15.4 Plt Count 203 MPV 9.0 Neutrophils % 84.0 H D Lymphocytes % 10.0 D Monocytes % 3.0 L Band Neutrophils 3.0 Differential Comment Slide scanned Platelet Estimate Adequate Sodium 134 L Potassium 4.5 Chloride 96 L Carbon Dioxide 29 Anion Gap 9 BUN 65 H Creatinine 3.1 H POC Glucometer 274 Random Glucose 266 H D Calcium 8.9 Physical Exam: NAD , CV : RRR, no JVD today Lungs : minimal wheezing , much improved form before . Abd : soft, NT, ND , NL BS Ext: RLE , with increased circumference , edema and erythema on R medial lower thigh has much improved , with decreased tenderness to touch and decreased warmth DP 2+ b/l R sided hemiparesis A/P 76-year-old female with history of CVA (residual R-saima paresis, slurred speech ), Asthma, DM Type II, COPD, CKD Stage 4, Pneumonia, PVD, HTN, Chronic R- lower extremity edema presented LUQ pain. She was found to have Pyelonephritis and Strep bacteremia 1- Pyelonephritis : with E coli . improved . cont rocephin 2- Strep bacteremia : possibly from medial lower thigh cellulitis - cont clinda and rocephin - for VERONICA on Thursday 3- Mild COPD exacerbation. day 3 of prednisone 40 mg ,decrease to 30 daily cont advair cont Nebs and singular 4- h/o DCHF: volume status has improved today - cont PO home lasix - cont coreg , and imdur 5- CKD IV, stable renal function . monitor not on ACEI /ARB 6- HTN, cont coreg , imdur and norvasc HLOC Visit type - Emergency Visit Emergency Visit: Yes ED Registration Date: 04/05/17 Care time: The patient presented to the Emergency Department on the above date and was hospitalized for further evaluation of their emergent condition. - New Patient This patient is new to me today: No - Critical Care Critical Care patient: No
[2017-04-11] MEDS: FLUTICASONE/SALMETEROL 100 MCG/50 MCG DISKUS IH SCH ×2 (12:01→21:56)
--- NOTE | 2017-04-11 12:10 | PN ---
Progress Note (short form) - Note Progress Note: Renal Follow up for CKD Pt seen and examined at the bedside no acute complaints denies any fever, chills, N/V/D Vital Signs Temperature 98.6 F 04/11/17 09:00 Pulse Rate 76 04/11/17 11:07 Respiratory Rate 22 04/11/17 09:00 Blood Pressure 114/50 04/11/17 09:00 O2 Sat by Pulse Oximetry (%) 98 04/11/17 11:07 Intake & Output 04/08/17 04/09/17 04/10/17 04/11/17 23:59 23:59 23:59 23:59 Intake Total 1050 100 200 480 Balance 1050 100 200 480 Weight 290 lb 0.6 oz Gen: NAD, awake and alert CVS: RRR, No M/R Lungs: Dec BS at lung bases Abd: soft, Obese, NT/ND ext: 1+ edema in the LE CBC, BMP 04/11/17 07:00 04/11/17 06:00 Current Medications Acetaminophen (Tylenol -) 650 mg PO Q6H PRN PRN Reason: PAIN OR FEVER Last Admin: 04/10/17 00:50 Dose: 650 mg Albuterol Sulfate (Ventolin 0.083% Nebulizer Soln -) 1 amp NEB Q6H PRN PRN Reason: SHORT OF BREATH/WHEEZING Albuterol/Ipratropium (Duoneb -) 1 amp NEB QIDR [facility] Last Admin: 04/11/17 11:08 Dose: 1 amp Amlodipine Besylate (Norvasc -) 10 mg PO DAILY [facility] Last Admin: 04/11/17 10:07 Dose: 10 mg Aspirin (Asa -) 81 mg PO DAILY [facility] Last Admin: 04/11/17 10:07 Dose: 81 mg Atorvastatin Calcium (Lipitor -) 40 mg PO HS [facility] Last Admin: 04/10/17 23:41 Dose: 40 mg Carvedilol (Coreg -) 3.125 mg PO BID [facility] Last Admin: 04/11/17 10:07 Dose: 3.125 mg Docusate Sodium (Colace -) 100 mg PO DAILY [facility] Last Admin: 04/11/17 10:07 Dose: 100 mg Furosemide (Lasix -) 40 mg PO DAILY [facility] Last Admin: 04/11/17 10:07 Dose: 40 mg Heparin Sodium (Porcine) (Heparin -) 5,000 unit SQ BID [facility] Last Admin: 04/11/17 10:07 Dose: 5,000 unit Ceftriaxone Sodium (Rocephin 2gm Ivpb (Pre-Docked)) 100 mls @ 200 mls/hr IVPB DAILY [facility] Last Admin: 04/11/17 10:08 Dose: 200 mls/hr Clindamycin Phosphate (Cleocin 300 Mg Premix Ivpb) 50 mls @ 100 mls/hr IVPB Q8H -IV [facility] Last Admin: 04/11/17 10:08 Dose: 100 mls/hr Insulin Aspart (Novolog Vial Sliding Scale -) 1 vial SQ ACHS [facility] PRN Reason: Protocol Last Admin: 04/11/17 11:38 Dose: 2 units Insulin Detemir (Levemir Vial) 25 units SQ HS [facility] Last Admin: 04/10/17 23:41 Dose: 25 units Isosorbide Mononitrate (Imdur -) 30 mg PO DAILY [facility] Last Admin: 04/11/17 10:07 Dose: 30 mg Levothyroxine Sodium (Synthroid -) 88 mcg PO AM [facility] Last Admin: 04/11/17 06:50 Dose: 88 mcg Montelukast Sodium (Singulair -) 10 mg PO HS [facility] Last Admin: 04/10/17 23:42 Dose: 10 mg Nystatin (Mycostatin Cream -) 1 applic TP QID [facility] Last Admin: 04/11/17 10:08 Dose: 1 applic Prednisone (Deltasone -) 30 mg PO DAILY [facility] Fluticasone/Salmeterol (Advair 100mcg/50mcg -) 1 puff IH BID [facility] Last Admin: 04/11/17 12:01 Dose: 1 puff 76 year old woman with PMhx of CKD Stage 4, Hypertension, DM, CVA who presented with complaints of fever and flank pain and admitted for SIRS/UTI with BUN/Cr of 68/2.9 #CKD stage 4 with subnephrotic proteinuria Etiology of CKD likely related to diabetic + hypertensive kidney disease Renal function remains stable at this time Urine studies show sub-nephrotic proteinuria continue Lasix 40mg daily Trend BUN/Cr #Leukocytosis/Fever/Strep Bacteremia/SIRS ?etiology of strep bactermia (CXR negative, Urine grew E.Coli) TTE reports did not mention any veg although it was not a optimal study for VERONICA on Thursday Thank you Terrance Zamorano DO Problem List - Problems (1) CKD (chronic kidney disease) Code(s): N18.9 - CHRONIC KIDNEY DISEASE, UNSPECIFIED (2) Sepsis Code(s): A41.9 - SEPSIS, UNSPECIFIED ORGANISM Qualifiers: Sepsis type: Escherichia coli Qualified Code(s): A41.51 - Sepsis due to Escherichia coli [E. coli] (3) UTI (urinary tract infection) Code(s): N39.0 - URINARY TRACT INFECTION, SITE NOT SPECIFIED Qualifiers: Urinary tract infection type: acute cystitis Hematuria presence: without hematuria Qualified Code(s): N30.00 - Acute cystitis without hematuria (4) Anemia Code(s): D64.9 - ANEMIA, UNSPECIFIED Qualifiers: Iron deficiency anemia type: chronic blood loss (5) Diabetes Code(s): E11.9 - TYPE 2 DIABETES MELLITUS WITHOUT COMPLICATIONS (6) Elevated BUN Code(s): R79.9 - ABNORMAL FINDING OF BLOOD CHEMISTRY, UNSPECIFIED (7) Elevated serum creatinine Code(s): R79.89 - OTHER SPECIFIED ABNORMAL FINDINGS OF BLOOD CHEMISTRY (8) HTN (hypertension) Code(s): I10 - ESSENTIAL (PRIMARY) HYPERTENSION (9) CVA (cerebral vascular accident) Code(s): I63.9 - CEREBRAL INFARCTION, UNSPECIFIED (10) Proteinuria Code(s): R80.9 - PROTEINURIA, UNSPECIFIED (11) Leukocytosis Code(s): D72.829 - ELEVATED WHITE BLOOD CELL COUNT, UNSPECIFIED
--- NOTE | 2017-04-11 12:45 | PN ---
Progress Note, Physician History of Present Illness: doing well rt thigh erythema and pain has improved - Current Medication List Current Medications: Active Medications Acetaminophen (Tylenol -) 650 mg PO Q6H PRN PRN Reason: PAIN OR FEVER Last Admin: 04/10/17 00:50 Dose: 650 mg Albuterol Sulfate (Ventolin 0.083% Nebulizer Soln -) 1 amp NEB Q6H PRN PRN Reason: SHORT OF BREATH/WHEEZING Albuterol/Ipratropium (Duoneb -) 1 amp NEB QIDR [facility] Last Admin: 04/11/17 11:08 Dose: 1 amp Amlodipine Besylate (Norvasc -) 10 mg PO DAILY [facility] Last Admin: 04/11/17 10:07 Dose: 10 mg Aspirin (Asa -) 81 mg PO DAILY [facility] Last Admin: 04/11/17 10:07 Dose: 81 mg Atorvastatin Calcium (Lipitor -) 40 mg PO HS [facility] Last Admin: 04/10/17 23:41 Dose: 40 mg Carvedilol (Coreg -) 3.125 mg PO BID [facility] Last Admin: 04/11/17 10:07 Dose: 3.125 mg Docusate Sodium (Colace -) 100 mg PO DAILY [facility] Last Admin: 04/11/17 10:07 Dose: 100 mg Furosemide (Lasix -) 40 mg PO DAILY [facility] Last Admin: 04/11/17 10:07 Dose: 40 mg Heparin Sodium (Porcine) (Heparin -) 5,000 unit SQ BID [facility] Last Admin: 04/11/17 10:07 Dose: 5,000 unit Ceftriaxone Sodium (Rocephin 2gm Ivpb (Pre-Docked)) 100 mls @ 200 mls/hr IVPB DAILY [facility] Last Admin: 04/11/17 10:08 Dose: 200 mls/hr Clindamycin Phosphate (Cleocin 300 Mg Premix Ivpb) 50 mls @ 100 mls/hr IVPB Q8H -IV [facility] Last Admin: 04/11/17 10:08 Dose: 100 mls/hr Insulin Aspart (Novolog Vial Sliding Scale -) 1 vial SQ ACHS [facility] PRN Reason: Protocol Last Admin: 04/11/17 11:38 Dose: 2 units Insulin Detemir (Levemir Vial) 25 units SQ HS [facility] Last Admin: 04/10/17 23:41 Dose: 25 units Isosorbide Mononitrate (Imdur -) 30 mg PO DAILY [facility] Last Admin: 04/11/17 10:07 Dose: 30 mg Levothyroxine Sodium (Synthroid -) 88 mcg PO AM [facility] Last Admin: 04/11/17 06:50 Dose: 88 mcg Montelukast Sodium (Singulair -) 10 mg PO HS [facility] Last Admin: 04/10/17 23:42 Dose: 10 mg Nystatin (Mycostatin Cream -) 1 applic TP QID [facility] Last Admin: 04/11/17 10:08 Dose: 1 applic Prednisone (Deltasone -) 30 mg PO DAILY [facility] Fluticasone/Salmeterol (Advair 100mcg/50mcg -) 1 puff IH BID [facility] Last Admin: 04/11/17 12:01 Dose: 1 puff - Objective Vital Signs: Vital Signs Temperature 98.6 F 04/11/17 09:00 Pulse Rate 76 04/11/17 11:07 Respiratory Rate 22 04/11/17 09:00 Blood Pressure 114/50 04/11/17 09:00 O2 Sat by Pulse Oximetry (%) 98 04/11/17 11:07 Constitutional: Yes: No Distress, Calm Cardiovascular: Yes: S1, S2 Respiratory: Yes: Regular, CTA Bilaterally Gastrointestinal: Yes: Normal Bowel Sounds, Soft Musculoskeletal: Yes: WNL Extremities: Yes: Other (rt thigh swelling better erythema better) Neurological: Yes: Alert, Oriented Psychiatric: Yes: Alert, Oriented Labs: CBC, BMP 04/11/17 07:00 04/11/17 06:00 INR, PTT INR 1.27 (0.82-1.09) H 04/05/17 12:20 Assessment/Plan patient evaluated patient is now bacteremic i doubt that this coming from the kidneys i am worried about other issues Problem List - Problems (1) CKD (chronic kidney disease) Code(s): N18.9 - CHRONIC KIDNEY DISEASE, UNSPECIFIED (2) Sepsis Code(s): A41.9 - SEPSIS, UNSPECIFIED ORGANISM Qualifiers: Sepsis type: Escherichia coli Qualified Code(s): A41.51 - Sepsis due to Escherichia coli [E. coli] (3) UTI (urinary tract infection) Code(s): N39.0 - URINARY TRACT INFECTION, SITE NOT SPECIFIED Qualifiers: Urinary tract infection type: acute cystitis Hematuria presence: without hematuria Qualified Code(s): N30.00 - Acute cystitis without hematuria (4) Anemia Code(s): D64.9 - ANEMIA, UNSPECIFIED Qualifiers: Iron deficiency anemia type: chronic blood loss (5) Diabetes Code(s): E11.9 - TYPE 2 DIABETES MELLITUS WITHOUT COMPLICATIONS (6) Elevated BUN Code(s): R79.9 - ABNORMAL FINDING OF BLOOD CHEMISTRY, UNSPECIFIED (7) Elevated serum creatinine Code(s): R79.89 - OTHER SPECIFIED ABNORMAL FINDINGS OF BLOOD CHEMISTRY (8) HTN (hypertension) Code(s): I10 - ESSENTIAL (PRIMARY) HYPERTENSION (9) CVA (cerebral vascular accident) Code(s): I63.9 - CEREBRAL INFARCTION, UNSPECIFIED (10) Proteinuria Code(s): R80.9 - PROTEINURIA, UNSPECIFIED (11) Leukocytosis Code(s): D72.829 - ELEVATED WHITE BLOOD CELL COUNT, UNSPECIFIED plan continue current abx continue monitoring the leg rest ct as per primary patient improving monitor wbc nick thursday
[2017-04-11] MEDS: INSULIN DETEMIR 100 UNITS/ML MDV SQ SCH (21:55)
[2017-04-11] MEDS: MONTELUKAST NA 10 MG TABLET PO SCH (21:56)
[2017-04-11] MEDS: ATORVASTATIN CA 40 MG TABLET (FP) PO SCH (21:56)
[2017-04-12] MEDS: CLINDAMYCIN 300 MG PREMIX IVPB 50 ML IVPB SCH ×3 (01:19→17:29)
[2017-04-12] MEDS: LEVOTHYROXINE NA 88 MCG TABLET (FP) PO SCH (06:04)
[2017-04-12] MEDS: INSULIN SLIDING SCALE (NOVOLOG) 1 VIAL SQ SCH ×4 (06:05→21:30)
[2017-04-12] MEDS: ALBUTEROL SO4 2.5/IPRATROPIUM 0.5 INH SOL 3 ML VIAL.NEB. NEB SCH ×4 (06:42→23:30)
[2017-04-12 07:33] LABS: MCH 27.7 pg (25.7-33.7); MCHC 32.9 g/dl (32.0-36.0); MEAN PLT VOLUME 8.6 fl (7.5-11.1); PLATELET COUNT 250 K/MM3 (134-434); RDW 15.2 % (11.6-15.6); WHITE BLOOD COUNT 15.3 K/mm3 (4.0-10.0)
[2017-04-12 07:52] LABS: ANION GAP 10 (8-16); CALCIUM 8.9 mg/dL (8.5-10.1); CO2 28 mmol/L (21-32); CREATININE 3.1 mg/dL (0.55-1.02); GLUCOSE,RANDOM 169 mg/dL (74-106); MAGNESIUM 3.2 mg/dL (1.8-2.4); PHOSPHOROUS 3.6 mg/dL (2.5-4.9)
[2017-04-12] MEDS ORDERED: PT OWN MED DRAWER 7, Y5N ONE ×2 (09:51→17:01)
[2017-04-12] MEDS: CEFTRIAXONE 100 ML IVPB SCH (09:53)
[2017-04-12] MEDS: FLUTICASONE/SALMETEROL 100 MCG/50 MCG DISKUS IH SCH ×2 (09:53→21:29)
[2017-04-12] MEDS: ISOSORBIDE MONONITRATE 30 MG TAB.SR.24H (FP) PO SCH (09:55)
[2017-04-12] MEDS: FUROSEMIDE 40 MG TABLET (FP) PO SCH (09:55)
[2017-04-12] MEDS: predniSONE 20 MG TABLET (UD) PO SCH (09:56)
[2017-04-12] MEDS: amLODIPine BESYLATE 10 MG TABLET (FP) PO SCH (09:57)
[2017-04-12] MEDS: DOCUSATE SODIUM 100 MG CAPSULE (FP) PO SCH (09:57)
[2017-04-12] MEDS: ASPIRIN 81 MG CHEWABLE TABLETS PO SCH (09:57)
[2017-04-12] MEDS: HEPARIN NA (PORCINE) 5,000 UNITS/ML 1ML VIAL SQ SCH ×2 (09:57→21:30)
[2017-04-12] MEDS: CARVEDILOL 3.125 MG TABLET (FP) PO SCH ×2 (09:57→21:30)
[2017-04-12] MEDS: NYSTATIN 100,000 UNIT/GM TOPICAL CREAM 15 GM TUBE TP SCH ×4 (09:58→21:31)
[2017-04-12 10:06] LABS: PLATELET ESTIMATE ADEQUATE (NORMAL)
--- NOTE | 2017-04-12 11:10 | PN ---
Progress Note (short form) - Note Progress Note: s: no cp sob palps dizzy o: Vital Signs Period Temp Pulse Resp BP Sys/Mike Pulse Ox Last 24 Hr 97.9 F-98.2 F 73-80 18-18 110-138/60-69 97-98 nad, calm jvd elevated, neck supple cta bl nl effort RRR nl s1, s2 no mrg + bs soft nt nd obese ext with trace - 1+ dependent edema aaox3 no jaundice, diaphoresis Current Medications Generic Name Dose Route Start Last Admin Trade Name Freq PRN Reason Stop Dose Admin Acetaminophen 650 mg 04/05/17 17:56 04/10/17 00:50 Tylenol - PO 650 mg Q6H PRN Administration PAIN OR FEVER Albuterol Sulfate 1 amp 04/05/17 18:59 Ventolin 0.083% Nebulizer Soln - NEB Q6H PRN SHORT OF BREATH/WHEEZING Albuterol/Ipratropium 1 amp 04/06/17 12:00 04/12/17 11:04 Duoneb - NEB 1 amp QIDR [facility] Administration Amlodipine Besylate 10 mg 04/06/17 10:00 04/12/17 09:57 Norvasc - PO 10 mg DAILY [facility] Administration Aspirin 81 mg 04/06/17 10:00 04/12/17 09:57 Asa - PO 81 mg DAILY [facility] Administration Atorvastatin Calcium 40 mg 04/05/17 22:00 04/11/17 21:56 Lipitor - PO 40 mg HS [facility] Administration Carvedilol 3.125 mg 04/10/17 10:00 04/12/17 09:57 Coreg - PO 3.125 mg BID [facility] Administration Docusate Sodium 100 mg 04/06/17 10:00 04/12/17 09:57 Colace - PO 100 mg DAILY [facility] Administration Furosemide 40 mg 04/10/17 11:45 04/12/17 09:55 Lasix - PO 40 mg DAILY [facility] Administration Heparin Sodium (Porcine) 5,000 unit 04/05/17 22:00 04/12/17 09:57 Heparin - SQ 5,000 unit BID [facility] Administration Ceftriaxone Sodium 100 mls @ 200 mls/hr 04/06/17 10:00 04/12/17 09:53 Rocephin 2gm Ivpb (Pre-Docked) IVPB 200 mls/hr DAILY [facility] Administration Clindamycin Phosphate 50 mls @ 100 mls/hr 04/10/17 18:00 04/12/17 09:57 Cleocin 300 Mg Premix Ivpb IVPB 100 mls/hr Q8H-IV [facility] Administration Insulin Aspart 1 vial 04/05/17 22:00 04/12/17 06:05 Novolog Vial Sliding Scale - SQ 4 units ACHS [facility] Administration Protocol Insulin Detemir 25 units 04/05/17 22:00 04/11/17 21:55 Levemir Vial SQ 25 units HS [facility] Administration Isosorbide Mononitrate 30 mg 04/06/17 10:00 04/12/17 09:55 Imdur - PO 30 mg DAILY [facility] Administration Levothyroxine Sodium 88 mcg 04/06/17 07:00 04/12/17 06:04 Synthroid - PO 88 mcg AM [facility] Administration Montelukast Sodium 10 mg 04/06/17 22:00 04/11/17 21:56 Singulair - PO 10 mg HS [facility] Administration Nystatin 1 applic 04/06/17 10:00 04/12/17 09:58 Mycostatin Cream - TP 1 applic QID [facility] Administration Prednisone 30 mg 04/12/17 10:00 04/12/17 09:56 Deltasone - PO 30 mg DAILY [facility] Administration Fluticasone/Salmeterol 1 puff 04/09/17 22:00 04/12/17 09:53 Advair 100mcg/50mcg - IH 1 puff BID [facility] Administration CBC, BMP 04/12/17 06:10 04/12/17 06:10 echo 03/2017: tds. grossly nl lv/rv. mac. TV/MV/PV not well seen. MAC, no mr , 1+ tr. no ar. cxr: clear lung [place] ekg: nsr. new non-specific diffuse twave ab a/p: 76 yo with h/o HTN, HL CVA (Rt hemiparesis), CKD, diastolic chf, IDDM, SHANE , anemia, COPD, hypothyroid, obesity admitted with uti and bacteremia. bacteremia - no clear source. TTE tds. Plan for further evaluation for endocarditis with VERONICA on thursday at 2pm. If endocarditis present, it will change antibiotic course /duration diastolic HF -cxr clear -cont po lasix hld - on atorva htn -stable on current meds cva - on asa, statin CKD - ongoing management per renal. shane - on bipap at night
[2017-04-12] MEDS ORDERED: INSULIN (NOVOLOG) ASPART 100 UNITS/ML 10ML VIAL ONE (11:50)
--- NOTE | 2017-04-12 13:15 | PN ---
Progress Note (short form) - Note Progress Note: Subjective: denies any pain . has no SOB, R thigh pain has worsened today Objective: Vital Signs: Last Vital Signs Temp Pulse Resp BP Pulse Ox 98.2 F 80 18 110/60 97 04/12/17 06:00 04/12/17 10:42 04/12/17 06:00 04/12/17 06:00 04/12/17 10:42 Laboratory Results - last 24 hr 04/11/17 04/11/17 04/12/17 16:49 21:52 05:33 WBC RBC Hgb Hct MCV MCH MCHC RDW Plt Count MPV Neutrophils % Lymphocytes % Monocytes % Band Neutrophils Myelocytes Differential Comment Platelet Estimate Sodium Potassium Chloride Carbon Dioxide Anion Gap BUN Creatinine POC Glucometer 201 305 203 Random Glucose Calcium Phosphorus Magnesium 04/12/17 04/12/17 04/12/17 06:10 06:10 11:34 WBC 15.3 H RBC 3.05 L Hgb 8.4 L Hct 25.6 L MCV 84.0 MCH 27.7 MCHC 32.9 RDW 15.2 Plt Count 250 D MPV 8.6 Neutrophils % 78.0 Lymphocytes % 12.0 Monocytes % 4.0 Band Neutrophils 4.0 D Myelocytes 2 D Differential Comment Slide scanned Platelet Estimate Adequate Sodium 135 L Potassium 4.2 Chloride 97 L Carbon Dioxide 28 Anion Gap 10 BUN 68 H Creatinine 3.1 H POC Glucometer 181 Random Glucose 169 H D Calcium 8.9 Phosphorus 3.6 D Magnesium 3.2 H Physical Exam: NAD , CV : RRR, no JVD today Lungs : no wheezing heard today ,no crackles Abd : soft, NT, ND , NL BS Ext: RLE , with increased circumference , edema and erythema on R medial lower thigh has improved , area is still warm , and with tenderness. DP 2+ b/l R sided hemiparesis A/P 76-year-old female with history of CVA (residual R-saima paresis, slurred speech ), Asthma, DM Type II, COPD, CKD Stage 4, Pneumonia, PVD, HTN, Chronic R- lower extremity edema presented LUQ pain. She was found to have Pyelonephritis and Strep bacteremia 1- Pyelonephritis : with E coli . improved . cont rocephin 2- Strep bacteremia : possibly from medial lower thigh cellulitis - cont clinda and rocephin - for VERONICA on Thursday - NPO after MN 3- Mild COPD exacerbation. day 1 of prednisone 30, will taper quickly cont advair cont Nebs and singular 4- h/o DCHF: volume status has improved - cont PO home lasix - cont coreg , and imdur 5- CKD IV, stable renal function . monitor not on ACEI /ARB 6- HTN, cont coreg , imdur and norvasc HLOC Visit type - Emergency Visit Emergency Visit: Yes ED Registration Date: 04/05/17 Care time: The patient presented to the Emergency Department on the above date and was hospitalized for further evaluation of their emergent condition. - New Patient This patient is new to me today: No - Critical Care Critical Care patient: No
--- NOTE | 2017-04-12 14:08 | PN ---
Progress Note, Physician History of Present Illness: doing well rt thigh erythema and pain has improved patient feels much better - Current Medication List Current Medications: Active Medications Acetaminophen (Tylenol -) 650 mg PO Q6H PRN PRN Reason: PAIN OR FEVER Last Admin: 04/10/17 00:50 Dose: 650 mg Albuterol Sulfate (Ventolin 0.083% Nebulizer Soln -) 1 amp NEB Q6H PRN PRN Reason: SHORT OF BREATH/WHEEZING Albuterol/Ipratropium (Duoneb -) 1 amp NEB QIDR [facility] Last Admin: 04/12/17 11:04 Dose: 1 amp Amlodipine Besylate (Norvasc -) 10 mg PO DAILY [facility] Last Admin: 04/12/17 09:57 Dose: 10 mg Aspirin (Asa -) 81 mg PO DAILY [facility] Last Admin: 04/12/17 09:57 Dose: 81 mg Atorvastatin Calcium (Lipitor -) 40 mg PO HS [facility] Last Admin: 04/11/17 21:56 Dose: 40 mg Carvedilol (Coreg -) 3.125 mg PO BID [facility] Last Admin: 04/12/17 09:57 Dose: 3.125 mg Docusate Sodium (Colace -) 100 mg PO DAILY [facility] Last Admin: 04/12/17 09:57 Dose: 100 mg Furosemide (Lasix -) 40 mg PO DAILY [facility] Last Admin: 04/12/17 09:55 Dose: 40 mg Heparin Sodium (Porcine) (Heparin -) 5,000 unit SQ BID [facility] Last Admin: 04/12/17 09:57 Dose: 5,000 unit Ceftriaxone Sodium (Rocephin 2gm Ivpb (Pre-Docked)) 100 mls @ 200 mls/hr IVPB DAILY [facility] Last Admin: 04/12/17 09:53 Dose: 200 mls/hr Clindamycin Phosphate (Cleocin 300 Mg Premix Ivpb) 50 mls @ 100 mls/hr IVPB Q8H -IV [facility] Last Admin: 04/12/17 09:57 Dose: 100 mls/hr Insulin Aspart (Novolog Vial Sliding Scale -) 1 vial SQ ACHS [facility] PRN Reason: Protocol Last Admin: 04/12/17 11:56 Dose: 2 units Insulin Detemir (Levemir Vial) 25 units SQ HS [facility] Last Admin: 04/11/17 21:55 Dose: 25 units Isosorbide Mononitrate (Imdur -) 30 mg PO DAILY [facility] Last Admin: 04/12/17 09:55 Dose: 30 mg Levothyroxine Sodium (Synthroid -) 88 mcg PO AM [facility] Last Admin: 04/12/17 06:04 Dose: 88 mcg Montelukast Sodium (Singulair -) 10 mg PO HS [facility] Last Admin: 04/11/17 21:56 Dose: 10 mg Nystatin (Mycostatin Cream -) 1 applic TP QID [facility] Last Admin: 04/12/17 09:58 Dose: 1 applic Prednisone (Deltasone -) 30 mg PO DAILY [facility] Last Admin: 04/12/17 09:56 Dose: 30 mg Fluticasone/Salmeterol (Advair 100mcg/50mcg -) 1 puff IH BID [facility] Last Admin: 04/12/17 09:53 Dose: 1 puff - Objective Vital Signs: Vital Signs Temperature 98.2 F 04/12/17 06:00 Pulse Rate 80 04/12/17 10:42 Respiratory Rate 18 04/12/17 06:00 Blood Pressure 110/60 04/12/17 06:00 O2 Sat by Pulse Oximetry (%) 97 04/12/17 10:42 Constitutional: Yes: No Distress, Calm Cardiovascular: Yes: Regular Rate and Rhythm Respiratory: Yes: Regular, CTA Bilaterally Gastrointestinal: Yes: Normal Bowel Sounds, Soft Musculoskeletal: Yes: Other Extremities: Yes: Erythema (rt ext erythema improved) Neurological: Yes: Alert, Oriented Psychiatric: Yes: Alert, Oriented Labs: CBC, BMP 04/12/17 06:10 04/12/17 06:10 INR, PTT INR 1.27 (0.82-1.09) H 04/05/17 12:20 Assessment/Plan patient evaluated patient is now bacteremic i doubt that this coming from the kidneys i am worried about other issues Problem List - Problems (1) CKD (chronic kidney disease) Code(s): N18.9 - CHRONIC KIDNEY DISEASE, UNSPECIFIED (2) Sepsis Code(s): A41.9 - SEPSIS, UNSPECIFIED ORGANISM Qualifiers: Sepsis type: Escherichia coli Qualified Code(s): A41.51 - Sepsis due to Escherichia coli [E. coli] (3) UTI (urinary tract infection) Code(s): N39.0 - URINARY TRACT INFECTION, SITE NOT SPECIFIED Qualifiers: Urinary tract infection type: acute cystitis Hematuria presence: without hematuria Qualified Code(s): N30.00 - Acute cystitis without hematuria (4) Anemia Code(s): D64.9 - ANEMIA, UNSPECIFIED Qualifiers: Iron deficiency anemia type: chronic blood loss (5) Diabetes Code(s): E11.9 - TYPE 2 DIABETES MELLITUS WITHOUT COMPLICATIONS (6) Elevated BUN Code(s): R79.9 - ABNORMAL FINDING OF BLOOD CHEMISTRY, UNSPECIFIED (7) Elevated serum creatinine Code(s): R79.89 - OTHER SPECIFIED ABNORMAL FINDINGS OF BLOOD CHEMISTRY (8) HTN (hypertension) Code(s): I10 - ESSENTIAL (PRIMARY) HYPERTENSION (9) CVA (cerebral vascular accident) Code(s): I63.9 - CEREBRAL INFARCTION, UNSPECIFIED (10) Proteinuria Code(s): R80.9 - PROTEINURIA, UNSPECIFIED (11) Leukocytosis Code(s): D72.829 - ELEVATED WHITE BLOOD CELL COUNT, UNSPECIFIED plan continue current abx continue monitoring the leg rest ct as per primary patient improving wbc still on the higher side
[2017-04-12] MEDS: ATORVASTATIN CA 40 MG TABLET (FP) PO SCH (21:30)
[2017-04-12] MEDS: MONTELUKAST NA 10 MG TABLET PO SCH (21:30)
[2017-04-12] MEDS ORDERED: INSULIN DETEMIR 100 UNITS/ML MDV SQ ONE (22:58)
[2017-04-12] MEDS: INSULIN DETEMIR 100 UNITS/ML MDV SQ SCH (23:11)
[2017-04-13] MEDS: CLINDAMYCIN 300 MG PREMIX IVPB 50 ML IVPB SCH ×3 (01:20→18:04)
[2017-04-13] MEDS: LEVOTHYROXINE NA 88 MCG TABLET (FP) PO SCH (06:26)
[2017-04-13] MEDS: INSULIN SLIDING SCALE (NOVOLOG) 1 VIAL SQ SCH ×4 (06:26→22:26)
[2017-04-13] MEDS: ALBUTEROL SO4 2.5/IPRATROPIUM 0.5 INH SOL 3 ML VIAL.NEB. NEB SCH ×3 (06:45→17:23)
[2017-04-13 08:56] LABS: ANION GAP 9 (8-16); CALCIUM 8.8 mg/dL (8.5-10.1); CO2 27 mmol/L (21-32); GLUCOSE,RANDOM 144 mg/dL (74-106)
--- NOTE | 2017-04-13 09:10 | PN ---
Teaching Attending Note Name of Resident: Mark Garcia ATTENDING PHYSICIAN STATEMENT I saw and evaluated the patient. I reviewed the resident's note and discussed the case with the resident. I agree with the resident's findings and plan as documented. SUBJECTIVE: 76-year-old female with history of CVA (residual R-saima paresis, slurred speech ), Asthma, DM Type II, COPD, CKD Stage 4, Pneumonia, PVD, HTN, Chronic R- lower extremity edema presented LUQ pain. She was found to have Pyelonephritis and Strep bacteremia OBJECTIVE: Obese, A&Ox3, NAD Tachypneic, Lungs CTA CVS, RRR, no Murmur appreciated Abd: soft, BS+ Ext: Right medial thigh no erythema, tender to palpation, no edema ASSESSMENT AND PLAN: Pyelonephritis d/t E coli. cont rocephine Right lower ext cellulitis d/t Strep cont clindamycin and rocephine R/o Endocarditis VERONICA on Thursday Mild COPD exacerbation. reduce prednisone to 10, cont advair, singular and nebulizations DCHF with h/o HTN: cont lasix, norvasc, coreg , and imdur CKD 4 avoid nephrotoxic drugs
[2017-04-13] MEDS: NYSTATIN 100,000 UNIT/GM TOPICAL CREAM 15 GM TUBE TP SCH ×4 (10:00→22:18)
[2017-04-13] MEDS: CEFTRIAXONE 100 ML IVPB SCH (10:54)
[2017-04-13] MEDS: ASPIRIN 81 MG CHEWABLE TABLETS PO SCH (11:03)
[2017-04-13] MEDS: CARVEDILOL 3.125 MG TABLET (FP) PO SCH ×3 (11:07→22:17)
[2017-04-13] MEDS: amLODIPine BESYLATE 10 MG TABLET (FP) PO SCH (11:08)
[2017-04-13] MEDS: FUROSEMIDE 40 MG TABLET (FP) PO SCH (11:08)
[2017-04-13] MEDS: ISOSORBIDE MONONITRATE 30 MG TAB.SR.24H (FP) PO SCH (11:09)
[2017-04-13] MEDS ORDERED: PT OWN MED DRAWER 7, Y5N ONE ×2 (11:11→11:23)
[2017-04-13] MEDS: predniSONE 20 MG TABLET (UD) PO SCH (11:17)
[2017-04-13] MEDS: DOCUSATE SODIUM 100 MG CAPSULE (FP) PO SCH (11:17)
[2017-04-13] MEDS: FLUTICASONE/SALMETEROL 100 MCG/50 MCG DISKUS IH SCH ×2 (11:17→22:18)
--- NOTE | 2017-04-13 13:30 | PN ---
Progress Note, Physician History of Present Illness: patient doing well no complaints erythema much better - Current Medication List Current Medications: Active Medications Acetaminophen (Tylenol -) 650 mg PO Q6H PRN PRN Reason: PAIN OR FEVER Last Admin: 04/10/17 00:50 Dose: 650 mg Albuterol Sulfate (Ventolin 0.083% Nebulizer Soln -) 1 amp NEB Q6H PRN PRN Reason: SHORT OF BREATH/WHEEZING Albuterol/Ipratropium (Duoneb -) 1 amp NEB QIDR [facility] Last Admin: 04/13/17 11:06 Dose: Not Given Amlodipine Besylate (Norvasc -) 10 mg PO DAILY [facility] Last Admin: 04/13/17 11:08 Dose: Not Given Aspirin (Asa -) 81 mg PO DAILY [facility] Last Admin: 04/13/17 11:03 Dose: Not Given Atorvastatin Calcium (Lipitor -) 40 mg PO HS [facility] Last Admin: 04/12/17 21:30 Dose: 40 mg Carvedilol (Coreg -) 3.125 mg PO BID [facility] Last Admin: 04/13/17 11:17 Dose: 3.125 mg Docusate Sodium (Colace -) 100 mg PO DAILY [facility] Last Admin: 04/13/17 11:17 Dose: 100 mg Furosemide (Lasix -) 40 mg PO DAILY [facility] Last Admin: 04/13/17 11:08 Dose: Not Given Ceftriaxone Sodium (Rocephin 2gm Ivpb (Pre-Docked)) 100 mls @ 200 mls/hr IVPB DAILY [facility] Last Admin: 04/13/17 10:54 Dose: 200 mls/hr Clindamycin Phosphate (Cleocin 300 Mg Premix Ivpb) 50 mls @ 100 mls/hr IVPB Q8H -IV [facility] Last Admin: 04/13/17 11:23 Dose: 100 mls/hr Insulin Aspart (Novolog Vial Sliding Scale -) 1 vial SQ ACHS [facility] PRN Reason: Protocol Last Admin: 04/13/17 06:26 Dose: Not Given Insulin Detemir (Levemir Vial) 25 units SQ HS [facility] Last Admin: 04/12/17 23:11 Dose: Not Given Isosorbide Mononitrate (Imdur -) 30 mg PO DAILY [facility] Last Admin: 04/13/17 11:09 Dose: Not Given Levothyroxine Sodium (Synthroid -) 88 mcg PO AM [facility] Last Admin: 04/13/17 06:26 Dose: Not Given Montelukast Sodium (Singulair -) 10 mg PO HS [facility] Last Admin: 04/12/17 21:30 Dose: 10 mg Nystatin (Mycostatin Cream -) 1 applic TP QID [facility] Last Admin: 04/12/17 21:31 Dose: 1 applic Prednisone (Deltasone -) 30 mg PO DAILY [facility] Last Admin: 04/13/17 11:17 Dose: 30 mg Fluticasone/Salmeterol (Advair 100mcg/50mcg -) 1 puff IH BID [facility] Last Admin: 04/13/17 11:17 Dose: 1 puff - Objective Vital Signs: Vital Signs Temperature 98.8 F 04/13/17 10:55 Pulse Rate 74 04/13/17 10:55 Respiratory Rate 20 04/13/17 10:55 Blood Pressure 116/58 04/13/17 10:55 O2 Sat by Pulse Oximetry (%) 97 04/13/17 10:55 Constitutional: Yes: No Distress, Calm Cardiovascular: Yes: Regular Rate and Rhythm Respiratory: Yes: Regular, CTA Bilaterally Gastrointestinal: Yes: Normal Bowel Sounds, Soft Musculoskeletal: Yes: Other Extremities: Yes: Other (erythema thigh resolving) Neurological: Yes: Alert, Oriented Psychiatric: Yes: Alert, Oriented Labs: CBC, BMP 04/12/17 06:10 04/13/17 06:40 INR, PTT INR 1.27 (0.82-1.09) H 04/05/17 12:20 Assessment/Plan patient evaluated patient is now bacteremic i doubt that this coming from the kidneys i am worried about other issues Problem List - Problems (1) CKD (chronic kidney disease) Code(s): N18.9 - CHRONIC KIDNEY DISEASE, UNSPECIFIED (2) Sepsis Code(s): A41.9 - SEPSIS, UNSPECIFIED ORGANISM Qualifiers: Sepsis type: Escherichia coli Qualified Code(s): A41.51 - Sepsis due to Escherichia coli [E. coli] (3) UTI (urinary tract infection) Code(s): N39.0 - URINARY TRACT INFECTION, SITE NOT SPECIFIED Qualifiers: Urinary tract infection type: acute cystitis Hematuria presence: without hematuria Qualified Code(s): N30.00 - Acute cystitis without hematuria (4) Anemia Code(s): D64.9 - ANEMIA, UNSPECIFIED Qualifiers: Iron deficiency anemia type: chronic blood loss (5) Diabetes Code(s): E11.9 - TYPE 2 DIABETES MELLITUS WITHOUT COMPLICATIONS (6) Elevated BUN Code(s): R79.9 - ABNORMAL FINDING OF BLOOD CHEMISTRY, UNSPECIFIED (7) Elevated serum creatinine Code(s): R79.89 - OTHER SPECIFIED ABNORMAL FINDINGS OF BLOOD CHEMISTRY (8) HTN (hypertension) Code(s): I10 - ESSENTIAL (PRIMARY) HYPERTENSION (9) CVA (cerebral vascular accident) Code(s): I63.9 - CEREBRAL INFARCTION, UNSPECIFIED (10) Proteinuria Code(s): R80.9 - PROTEINURIA, UNSPECIFIED (11) Leukocytosis Code(s): D72.829 - ELEVATED WHITE BLOOD CELL COUNT, UNSPECIFIED plan continue current abx continue monitoring the leg patient for nick today will see the report check wbc tomorrow
[2017-04-13] MEDS ORDERED: LIDOCAINE VISCOUS 2% ORAL/TOP 20 ML UNIT-DOSE CUP MM ONE (14:00)
[2017-04-13] MEDS ORDERED: MIDAZOLAM HCL 2 MG/2 ML SINGLE DOSE VIAL ONE (14:11)
--- NOTE | 2017-04-13 14:49 | PROC ---
Transesophageal Echocardiogram - Pre-Procedure Indications: R/O Infective Endocarditis Risks and Benefits Explained: Yes Consent on Chart: Yes - Procedure Procedure Done: in Endoscopy Suite Medication given: propofol, lidocaine Findings: no evidence of endocarditis Remarks: Patient tolerated procedure well w/o complications.
--- NOTE | 2017-04-13 14:54 | PN ---
Progress Note (short form) - Note Progress Note: s: no cp sob palps dizzy o: Vital Signs Period Temp Pulse Resp BP Sys/Mike Pulse Ox Last 24 Hr 98.2 F-98.8 F 73-88 18-20 116-130/54-66 97-97 nad, calm jvd elevated, neck supple cta bl nl effort RRR nl s1, s2 no mrg + bs soft nt nd obese ext with trace - 1+ dependent edema aaox3 no jaundice, diaphoresis Current Medications Generic Name Dose Route Start Last Admin Trade Name Freq PRN Reason Stop Dose Admin Acetaminophen 650 mg 04/05/17 17:56 04/10/17 00:50 Tylenol - PO 650 mg Q6H PRN Administration PAIN OR FEVER Albuterol Sulfate 1 amp 04/05/17 18:59 Ventolin 0.083% Nebulizer Soln - NEB Q6H PRN SHORT OF BREATH/WHEEZING Albuterol/Ipratropium 1 amp 04/06/17 12:00 04/13/17 11:06 Duoneb - NEB Not Given QIDR [facility] Amlodipine Besylate 10 mg 04/06/17 10:00 04/13/17 11:08 Norvasc - PO Not Given DAILY [facility] Aspirin 81 mg 04/06/17 10:00 04/13/17 11:03 Asa - PO Not Given DAILY [facility] Atorvastatin Calcium 40 mg 04/05/17 22:00 04/12/17 21:30 Lipitor - PO 40 mg HS [facility] Administration Carvedilol 3.125 mg 04/10/17 10:00 04/13/17 11:17 Coreg - PO 3.125 mg BID [facility] Administration Docusate Sodium 100 mg 04/06/17 10:00 04/13/17 11:17 Colace - PO 100 mg DAILY [facility] Administration Furosemide 40 mg 04/10/17 11:45 04/13/17 11:08 Lasix - PO Not Given DAILY [facility] Ceftriaxone Sodium 100 mls @ 200 mls/hr 04/06/17 10:00 04/13/17 10:54 Rocephin 2gm Ivpb (Pre-Docked) IVPB 200 mls/hr DAILY [facility] Administration Clindamycin Phosphate 50 mls @ 100 mls/hr 04/10/17 18:00 04/13/17 11:23 Cleocin 300 Mg Premix Ivpb IVPB 100 mls/hr Q8H-IV [facility] Administration Insulin Aspart 1 vial 04/05/17 22:00 04/13/17 12:26 Novolog Vial Sliding Scale - SQ Not Given ACHS [facility] Protocol Insulin Detemir 25 units 04/05/17 22:00 04/12/17 23:11 Levemir Vial SQ Not Given HS [facility] Isosorbide Mononitrate 30 mg 04/06/17 10:00 04/13/17 11:09 Imdur - PO Not Given DAILY [facility] Levothyroxine Sodium 88 mcg 04/06/17 07:00 04/13/17 06:26 Synthroid - PO Not Given AM [facility] Montelukast Sodium 10 mg 04/06/17 22:00 04/12/17 21:30 Singulair - PO 10 mg HS [facility] Administration Nystatin 1 applic 04/06/17 10:00 04/12/17 21:31 Mycostatin Cream - TP 1 applic QID [facility] Administration Prednisone 30 mg 04/12/17 10:00 04/13/17 11:17 Deltasone - PO 30 mg DAILY [facility] Administration Fluticasone/Salmeterol 1 puff 04/09/17 22:00 04/13/17 11:17 Advair 100mcg/50mcg - IH 1 puff BID [facility] Administration CBC, BMP 04/12/17 06:10 04/13/17 06:40 echo 03/2017: tds. grossly nl lv/rv. mac. TV/MV/PV not well seen. MAC, no mr , 1+ tr. no ar. nick 03/2017: nl lv/rv, mild mr, trace tr, no endocarditis ekg: nsr. new non-specific diffuse twave ab a/p: 76 yo with h/o HTN, HL CVA (Rt hemiparesis), CKD, diastolic chf, IDDM, ROSITA , anemia, COPD, hypothyroid, obesity admitted with uti and bacteremia. bacteremia - NICK without evidence of endocarditis - cont abx per ID diastolic HF -cxr clear -cont po lasix hld - on atorva htn -stable on current meds cva - on asa, statin CKD - stable, renal following rosita - on bipap at night
--- NOTE | 2017-04-13 19:42 | PN ---
Physical Exam: SUBJECTIVE: Patient seen and examined at bedside. No acute events overnight. Pt has no complaints at this time. Pt denies fever, chills, headache, chest pain, shortness of breath, abd pain, nausea, vomiting, diarrhea, dysuria. OBJECTIVE: Vital Signs Period Temp Pulse Resp BP Sys/Mike Pulse Ox Last 24 Hr 97.5 F-98.8 F 64-88 18-20 116-146/54-78 96-98 GENERAL: The patient is awake, alert, and fully oriented, in very mild respiratory distress (at her baseline). HEAD: Normal with no signs of trauma. EYES:sclera anicteric, conjunctiva clear. No ptosis. ENT: oropharynx clear without exudates, moist mucous membranes. NECK: Trachea midline, full range of motion, supple. LUNGS: Breath sounds equal, clear to auscultation bilaterally, expiratory wheezes, no crackles, no accessory muscle use. HEART: Regular rate and rhythm, normal S1, S2 without murmur, rub or gallop. ABDOMEN: obese Soft, nontender, nondistended, normoactive bowel sounds, no guarding, no rebound, no hepatosplenomegaly, no masses. EXTREMITIES: 2+ pulses, warm, well-perfused, 1+ edema (baseline). NEUROLOGICAL: Cranial nerves II through XII grossly intact. Normal speech, gait not observed. PSYCH: Normal mood, normal affect. SKIN: Warm, dry, normal turgor, no rashes or lesions noted Laboratory Results - last 24 hr 04/12/17 04/13/17 04/13/17 21:27 05:44 06:40 Sodium 136 Potassium 4.4 Chloride 100 Carbon Dioxide 27 Anion Gap 9 BUN 70 H Creatinine 3.0 H POC Glucometer 212 182 Random Glucose 144 H Calcium 8.8 04/13/17 04/13/17 12:24 17:31 Sodium Potassium Chloride Carbon Dioxide Anion Gap BUN Creatinine POC Glucometer 137 267 Random Glucose Calcium Active Medications Generic Name Dose Route Start Last Admin Trade Name Freq PRN Reason Stop Dose Admin Acetaminophen 650 mg 04/05/17 17:56 04/10/17 00:50 Tylenol - PO 650 mg Q6H PRN Administration PAIN OR FEVER Albuterol Sulfate 1 amp 04/05/17 18:59 Ventolin 0.083% Nebulizer Soln - NEB Q6H PRN SHORT OF BREATH/WHEEZING Albuterol/Ipratropium 1 amp 04/06/17 12:00 04/13/17 17:23 Duoneb - NEB 1 amp QIDR [facility] Administration Amlodipine Besylate 10 mg 04/06/17 10:00 04/13/17 11:08 Norvasc - PO Not Given DAILY [facility] Aspirin 81 mg 04/06/17 10:00 04/13/17 11:03 Asa - PO Not Given DAILY [facility] Atorvastatin Calcium 40 mg 04/05/17 22:00 04/12/17 21:30 Lipitor - PO 40 mg HS [facility] Administration Carvedilol 3.125 mg 04/10/17 10:00 04/13/17 11:17 Coreg - PO 3.125 mg BID [facility] Administration Docusate Sodium 100 mg 04/06/17 10:00 04/13/17 11:17 Colace - PO 100 mg DAILY [facility] Administration Furosemide 40 mg 04/10/17 11:45 04/13/17 11:08 Lasix - PO Not Given DAILY [facility] Ceftriaxone Sodium 100 mls @ 200 mls/hr 04/06/17 10:00 04/13/17 10:54 Rocephin 2gm Ivpb (Pre-Docked) IVPB 200 mls/hr DAILY [facility] Administration Clindamycin Phosphate 50 mls @ 100 mls/hr 04/10/17 18:00 04/13/17 18:04 Cleocin 300 Mg Premix Ivpb IVPB 100 mls/hr Q8H-IV [facility] Administration Insulin Aspart 1 vial 04/05/17 22:00 04/13/17 18:01 Novolog Vial Sliding Scale - SQ 6 units ACHS [facility] Administration Protocol Insulin Detemir 25 units 04/05/17 22:00 04/12/17 23:11 Levemir Vial SQ Not Given HS [facility] Isosorbide Mononitrate 30 mg 04/06/17 10:00 04/13/17 11:09 Imdur - PO Not Given DAILY [facility] Levothyroxine Sodium 88 mcg 04/06/17 07:00 04/13/17 06:26 Synthroid - PO Not Given AM [facility] Montelukast Sodium 10 mg 04/06/17 22:00 04/12/17 21:30 Singulair - PO 10 mg HS [facility] Administration Nystatin 1 applic 04/06/17 10:00 04/13/17 18:02 Mycostatin Cream - TP 1 applic QID [facility] Administration Prednisone 15 mg 04/13/17 16:16 Deltasone - PO DAILY [facility] Fluticasone/Salmeterol 1 puff 04/09/17 22:00 04/13/17 11:17 Advair 100mcg/50mcg - IH 1 puff BID [facility] Administration ASSESSMENT/PLAN: This is a 76 y/o F with PMH obesity, cva (with residual right sided weakness), asthma, ckd, cad (s/p cardiac cath), DM, HTN, thyroid disease, GI bleed with anemia (s/p transfusion in the past) who presented to the ED with left abdominal and flank pain. #Sepsis: RESOLVED -blood and urine cultures are positive for different organisms. Thus, sepsis secondary to UTI is unlikely. Throat without erythema -vitals in ED: temp 102.5, BP 138/90, HR 71, O2 sat 100% -in ED, pt received 1 dose Vanco 250mg IVPB, NS 2600ml, acetaminophen 1000mg IVPB, UA (+1 prot, +1 blood, +1 LE, RBC < 1, WBC 15), urine culture, blood culture -Blood cultures show Group B Strep. Repeat cultures negative -Urine cultures show E. coli -Acetaminophen 650mg Q6H PRN -Ceftriaxone 2gm Daily -Clinda 300 mg IVPB -Recent hospitalist encounter: u/s ruled out DVT. Cellulitis of inner R thigh is resolving with Abx. Will continue. -Right thigh cellulitis is resolved. No longer red or tender #Pyelonephritis -Nephro consult (Dr. Zamorano) appreciated. -Renal U/S pending. Pt is refusing. Would not explain why. -Urine cultures show E. coli -Pt on Ceftriaxone 2gm IVPB #r/o bacterial endocarditis -TTE shows no vegetations -Barium swallow study shows healthy esophagus -VERONICA for Mon #DM -Novalog vial ISS -Levemir 25u SQ HS -pending A1c #HTN -Amlodipine 10mg PO Daily #CAD -Lipitor 40mg PO HS -Isosorbide Mononitrate 30mg PO Daily -ASA 81mg PO Daily -Previous Echo shows normal LVEF #Asthma/COPD -Albuterol Neb 0.083% Q6H PRN -Singulair 10mg PO HS -Advair 1 puff IH BID #Hypothyroid -Synthroid 88mcg PO AM #Constipation -Colace 100mg PO Daily #insomnia -Trazodone 25mg PO #FEN -not on fluids -high BUN/Mop Man likely 2/2 CKD -soft diet #Dispo -Admit to Med/Surg Visit type - Emergency Visit Emergency Visit: No - New Patient This patient is new to me today: No - Critical Care Critical Care patient: No
[2017-04-13] MEDS: MONTELUKAST NA 10 MG TABLET PO SCH (22:17)
[2017-04-13] MEDS: ATORVASTATIN CA 40 MG TABLET (FP) PO SCH (22:17)
[2017-04-13] MEDS: INSULIN DETEMIR 100 UNITS/ML MDV SQ SCH (22:22)
[2017-04-14] MEDS: CLINDAMYCIN 300 MG PREMIX IVPB 50 ML IVPB SCH ×4 (01:20→17:39)
[2017-04-14] MEDS: LEVOTHYROXINE NA 88 MCG TABLET (FP) PO SCH (06:04)
[2017-04-14] MEDS: INSULIN SLIDING SCALE (NOVOLOG) 1 VIAL SQ SCH ×4 (06:07→22:09)
[2017-04-14] MEDS: ALBUTEROL SO4 2.5/IPRATROPIUM 0.5 INH SOL 3 ML VIAL.NEB. NEB SCH ×5 (06:32→23:20)
[2017-04-14 07:08] LABS: MCH 27.2 pg (25.7-33.7); MCHC 32.5 g/dl (32.0-36.0); MEAN CELL VOLUME 83.6 fl (80-96); MEAN PLT VOLUME 8.5 fl (7.5-11.1); PLATELET COUNT 255 K/MM3 (134-434)
[2017-04-14 07:35] LABS: ANION GAP 10 (8-16); CALCIUM 8.7 mg/dL (8.5-10.1); CO2 27 mmol/L (21-32); CREATININE 2.9 mg/dL (0.55-1.02); GLUCOSE,RANDOM 205 mg/dL (74-106)
[2017-04-14] MEDS ORDERED: PT OWN MED DRAWER 7, Y5N ONE (08:45)
[2017-04-14] MEDS: CARVEDILOL 3.125 MG TABLET (FP) PO SCH ×2 (09:01→22:08)
[2017-04-14] MEDS: amLODIPine BESYLATE 10 MG TABLET (FP) PO SCH (09:01)
[2017-04-14] MEDS: DOCUSATE SODIUM 100 MG CAPSULE (FP) PO SCH (09:01)
[2017-04-14] MEDS: predniSONE 5 MG TABLET (UD) PO SCH (09:01)
[2017-04-14] MEDS: ASPIRIN 81 MG CHEWABLE TABLETS PO SCH (09:01)
[2017-04-14] MEDS: ISOSORBIDE MONONITRATE 30 MG TAB.SR.24H (FP) PO SCH (09:01)
[2017-04-14] MEDS: FUROSEMIDE 40 MG TABLET (FP) PO SCH (09:01)
[2017-04-14] MEDS: FLUTICASONE/SALMETEROL 100 MCG/50 MCG DISKUS IH SCH ×2 (09:02→22:08)
--- NOTE | 2017-04-14 11:26 | PN ---
Progress Note (short form) - Note Progress Note: s: no cp sob palps dizzy o: Vital Signs Period Temp Pulse Resp BP Sys/Mike Pulse Ox Last 24 Hr 97.5 F-98.5 F 64-83 18-22 118-146/56-78 93-98 nad, calm jvd elevated, neck supple cta bl nl effort RRR nl s1, s2 no mrg + bs soft nt nd obese ext with trace - 1+ dependent edema aaox3 no jaundice, diaphoresis Current Medications Generic Name Dose Route Start Last Admin Trade Name Freq PRN Reason Stop Dose Admin Acetaminophen 650 mg 04/05/17 17:56 04/10/17 00:50 Tylenol - PO 650 mg Q6H PRN Administration PAIN OR FEVER Albuterol/Ipratropium 1 amp 04/06/17 12:00 04/14/17 06:32 Duoneb - NEB 1 amp QIDR [facility] Administration Amlodipine Besylate 10 mg 04/06/17 10:00 04/14/17 09:01 Norvasc - PO 10 mg DAILY [facility] Administration Aspirin 81 mg 04/06/17 10:00 04/14/17 09:01 Asa - PO 81 mg DAILY [facility] Administration Atorvastatin Calcium 40 mg 04/05/17 22:00 04/13/17 22:17 Lipitor - PO 40 mg HS [facility] Administration Carvedilol 3.125 mg 04/10/17 10:00 04/14/17 09:01 Coreg - PO 3.125 mg BID [facility] Administration Docusate Sodium 100 mg 04/06/17 10:00 04/14/17 09:01 Colace - PO 100 mg DAILY [facility] Administration Furosemide 40 mg 04/10/17 11:45 04/14/17 09:01 Lasix - PO 40 mg DAILY [facility] Administration Ceftriaxone Sodium 100 mls @ 200 mls/hr 04/06/17 10:00 04/13/17 10:54 Rocephin 2gm Ivpb (Pre-Docked) IVPB 200 mls/hr DAILY [facility] Administration Clindamycin Phosphate 50 mls @ 100 mls/hr 04/10/17 18:00 04/14/17 01:20 Cleocin 300 Mg Premix Ivpb IVPB 100 mls/hr Q8H-IV [facility] Administration Insulin Aspart 1 vial 04/05/17 22:00 04/14/17 06:07 Novolog Vial Sliding Scale - SQ 6 units ACHS [facility] Administration Protocol Insulin Detemir 25 units 04/05/17 22:00 04/13/17 22:22 Levemir Vial SQ 25 units HS [facility] Administration Isosorbide Mononitrate 30 mg 04/06/17 10:00 04/14/17 09:01 Imdur - PO 30 mg DAILY [facility] Administration Levothyroxine Sodium 88 mcg 04/06/17 07:00 04/14/17 06:04 Synthroid - PO 88 mcg AM [facility] Administration Montelukast Sodium 10 mg 04/06/17 22:00 04/13/17 22:17 Singulair - PO 10 mg HS [facility] Administration Nystatin 1 applic 04/06/17 10:00 04/13/17 22:18 Mycostatin Cream - TP 1 applic QID [facility] Administration Prednisone 15 mg 04/13/17 16:16 04/14/17 09:01 Deltasone - PO 15 mg DAILY [facility] Administration Fluticasone/Salmeterol 1 puff 04/09/17 22:00 04/14/17 09:02 Advair 100mcg/50mcg - IH 1 puff BID [facility] Administration CBC, BMP 04/14/17 06:05 04/14/17 06:05 echo 03/2017: tds. grossly nl lv/rv. mac. TV/MV/PV not well seen. MAC, no mr , 1+ tr. no ar. nick 03/2017: nl lv/rv, mild mr, trace tr, no endocarditis ekg: nsr. new non-specific diffuse twave ab a/p: 76 yo with h/o HTN, HL CVA (Rt hemiparesis), CKD, diastolic chf, IDDM, ROSITA , anemia, COPD, hypothyroid, obesity admitted with uti and bacteremia. bacteremia - NICK without evidence of endocarditis - cont abx per ID diastolic HF -cxr clear -cont po lasix hld - on atorva htn -stable on current meds cva - on asa, statin CKD - stable, renal following rosita - on bipap at night
[2017-04-14] MEDS: NYSTATIN 100,000 UNIT/GM TOPICAL CREAM 15 GM TUBE TP SCH ×3 (11:40→22:07)
[2017-04-14] MEDS: CEFTRIAXONE 100 ML IVPB SCH (12:11)
--- NOTE | 2017-04-14 12:21 | PN ---
Progress Note (short form) - Note Progress Note: Renal Follow up for CKD Pt seen and examined at the bedside awake and alert no acute complaints Vital Signs Temperature 97.6 F 04/14/17 06:00 Pulse Rate 71 04/14/17 10:49 Respiratory Rate 20 04/14/17 09:00 Blood Pressure 134/74 04/14/17 09:00 O2 Sat by Pulse Oximetry (%) 93 L 04/14/17 10:49 Intake & Output 04/11/17 04/12/17 04/13/17 04/14/17 23:59 23:59 23:59 23:59 Intake Total 1140 1550 750 480 Balance 1140 1550 750 480 Weight 291 lb 6 oz 292 lb 2 oz Gen: NAD CVS: RRR, No M/R Lungs: Dec BS at lung bases Abd: soft, Obese, NT/ND ext: trace to 1+ edema in LE, + warmth, no erythema CBC, BMP 04/14/17 06:05 04/14/17 06:05 Laboratory Tests 04/14/17 06:05 Calcium 8.7 Current Medications Acetaminophen (Tylenol -) 650 mg PO Q6H PRN PRN Reason: PAIN OR FEVER Last Admin: 04/10/17 00:50 Dose: 650 mg Albuterol/Ipratropium (Duoneb -) 1 amp NEB QIDR [facility] Last Admin: 04/14/17 11:39 Dose: 1 amp Amlodipine Besylate (Norvasc -) 10 mg PO DAILY [facility] [place] Last Admin: 04/14/17 09:01 Dose: 10 mg Aspirin (Asa -) 81 mg PO DAILY [facility] [place] Last Admin: 04/14/17 09:01 Dose: 81 mg Atorvastatin Calcium (Lipitor -) 40 mg PO HS [facility] [place] Last Admin: 04/13/17 22:17 Dose: 40 mg Carvedilol (Coreg -) 3.125 mg PO BID [facility] [place] Last Admin: 04/14/17 09:01 Dose: 3.125 mg Docusate Sodium (Colace -) 100 mg PO DAILY [facility] [place] Last Admin: 04/14/17 09:01 Dose: 100 mg Furosemide (Lasix -) 40 mg PO DAILY [facility] [place] Last Admin: 04/14/17 09:01 Dose: 40 mg Ceftriaxone Sodium (Rocephin 2gm Ivpb (Pre-Docked)) 100 mls @ 200 mls/hr IVPB DAILY [facility] [place] Last Admin: 04/14/17 12:11 Dose: 200 mls/hr Clindamycin Phosphate (Cleocin 300 Mg Premix Ivpb) 50 mls @ 100 mls/hr IVPB Q8H -IV [facility] [place] Last Admin: 04/14/17 11:30 Dose: 100 mls/hr Insulin Aspart (Novolog Vial Sliding Scale -) 1 vial SQ ACHS [facility] PRN Reason: Protocol Last Admin: 04/14/17 11:39 Dose: 2 units Insulin Detemir (Levemir Vial) 25 units SQ HS [facility] [place] Last Admin: 04/13/17 22:22 Dose: 25 units Isosorbide Mononitrate (Imdur -) 30 mg PO DAILY [facility] [place] Last Admin: 04/14/17 09:01 Dose: 30 mg Levothyroxine Sodium (Synthroid -) 88 mcg PO AM [facility] [place] Last Admin: 04/14/17 06:04 Dose: 88 mcg Montelukast Sodium (Singulair -) 10 mg PO HS [facility] [place] Last Admin: 04/13/17 22:17 Dose: 10 mg Nystatin (Mycostatin Cream -) 1 applic TP QID [facility] [place] Last Admin: 04/14/17 11:40 Dose: 1 applic Prednisone (Deltasone -) 15 mg PO DAILY [facility] [place] Last Admin: 04/14/17 09:01 Dose: 15 mg Fluticasone/Salmeterol (Advair 100mcg/50mcg -) 1 puff IH BID [facility] [place] Last Admin: 04/14/17 09:02 Dose: 1 puff 76 year old woman with PMhx of CKD Stage 4, Hypertension, DM, CVA who presented with complaints of fever and flank pain and admitted for SIRS/UTI with BUN/Cr of 68/2.9 #CKD stage 4 with subnephrotic proteinuria Etiology of CKD likely related to diabetic + hypertensive kidney disease Renal function remains stable continue Lasix daily Trend BUN/Cr #Leukocytosis/Fever/Strep Bacteremia/SIRS VERONICA negative on IV Ceftriaxone duration of abx to be determined by ID if 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 coli] (3) UTI (urinary tract infection) Code(s): N39.0 - URINARY TRACT INFECTION, SITE NOT SPECIFIED Qualifiers: Urinary tract infection type: acute cystitis Hematuria presence: without hematuria Qualified Code(s): N30.00 - Acute cystitis without hematuria (4) Anemia Code(s): D64.9 - ANEMIA, UNSPECIFIED Qualifiers: Iron deficiency anemia type: chronic blood loss (5) Diabetes Code(s): E11.9 - TYPE 2 DIABETES MELLITUS WITHOUT COMPLICATIONS (6) Elevated BUN Code(s): R79.9 - ABNORMAL FINDING OF BLOOD CHEMISTRY, UNSPECIFIED (7) Elevated serum creatinine Code(s): R79.89 - OTHER SPECIFIED ABNORMAL FINDINGS OF BLOOD CHEMISTRY (8) HTN (hypertension) Code(s): I10 - ESSENTIAL (PRIMARY) HYPERTENSION (9) CVA (cerebral vascular accident) Code(s): I63.9 - CEREBRAL INFARCTION, UNSPECIFIED (10) Proteinuria Code(s): R80.9 - PROTEINURIA, UNSPECIFIED (11) Leukocytosis Code(s): D72.829 - ELEVATED WHITE BLOOD CELL COUNT, UNSPECIFIED
--- NOTE | 2017-04-14 12:35 | PN ---
Teaching Attending Note Name of Resident: Mark Garcia ATTENDING PHYSICIAN STATEMENT I saw and evaluated the patient. I reviewed the resident's note and discussed the case with the resident. I agree with the resident's findings and plan as documented. SUBJECTIVE:continues to have dysuria. no hematuria or pyruia. denies CP, SOB, fever, chills, N/V/C/D OBJECTIVE: Last Vital Signs Temp Pulse Resp BP Pulse Ox 97.6 F 71 20 134/74 93 L 04/14/17 06:00 04/14/17 10:49 04/14/17 09:00 04/14/17 09:00 04/14/17 10:49 General NAD CV S1 S2 RRR no murmur/rub/gallop Abdomen soft NT/ND no suprapubic tenderness Extremities RLE upper thigh with +skin induration, no warmth, tenderness or drainage ASSESSMENT AND PLAN: 76 yo with h/o HTN, HL CVA (Rt hemiparesis), CKD, diastolic chf, IDDM, ROSITA, anemia, COPD, hypothyroid, obesity admitted with uti and bacteremia. 1. Strep bacteremia- likely due to RLE cellulitis. VERONICA negative for vegetations. as per pt appears improved but this is my first time visualizing. repeat BCx negative. on Clinda day 5. will d/w ID about duration as he saw initial cellulitis. as per ID if can be switched to po vs prolonged IV abx. leukocytosis trending down 2. UTI- E.coli.with possible pylenophritis. will repeat UA to evaluate if cleared since having symptoms. on Ceftriaxone day 9. 3. CKD- at baseline. nephrology on board. 4. ACute COPD exacerbation- clinically improved. cont steroid taper
--- NOTE | 2017-04-14 13:57 | PN ---
Physical Exam: SUBJECTIVE: Patient seen and examined at bedside. No acute events overnight. Pt complains of minor pain of the right thigh. No other complaints at this time. Pt denies headache, cp, abd pain, nausea, vomiting, diarrhea, dysuria, fever. OBJECTIVE: Vital Signs Period Temp Pulse Resp BP Sys/Mike Pulse Ox Last 24 Hr 97.5 F-98.5 F 64-83 18-22 118-146/56-78 93-98 GENERAL: The patient is awake, alert, and fully oriented, in no acute distress. HEAD: Normal with no signs of trauma. EYES: sclera anicteric, conjunctiva clear. No ptosis. ENT: oropharynx clear without exudates, moist mucous membranes. NECK: Trachea midline, full range of motion, supple. LUNGS: Breath sounds equal, clear to auscultation bilaterally, no wheezes, no crackles, no accessory muscle use. HEART: Regular rate and rhythm, normal S1, S2 without murmur, rub or gallop. ABDOMEN: Soft, nontender, nondistended, normoactive bowel sounds, no guarding, no rebound, no hepatosplenomegaly, no masses. EXTREMITIES: right thigh cellulitis remains. improving. 2+ pulses, warm, well- perfused, no edema. NEUROLOGICAL: Cranial nerves II through XII grossly intact. Normal speech, gait not observed. PSYCH: Normal mood, normal affect. SKIN: Warm, dry, normal turgor, no rashes or lesions noted Laboratory Results - last 24 hr 04/13/17 04/13/17 04/14/17 17:31 22:20 06:05 WBC RBC Hgb Hct MCV MCH MCHC RDW Plt Count MPV Neutrophils % Lymphocytes % Sodium 136 Potassium 4.7 Chloride 99 Carbon Dioxide 27 Anion Gap 10 BUN 74 H Creatinine 2.9 H POC Glucometer 267 353 Random Glucose 205 H D Calcium 8.7 04/14/17 04/14/17 04/14/17 06:05 06:05 11:37 WBC 13.0 H RBC 3.00 L Hgb 8.2 L Hct 25.0 L MCV 83.6 MCH 27.2 MCHC 32.5 RDW 16.0 H Plt Count 255 MPV 8.5 Neutrophils % Y Lymphocytes % Y Sodium Potassium Chloride Carbon Dioxide Anion Gap BUN Creatinine POC Glucometer 230 171 Random Glucose Calcium Active Medications Generic Name Dose Route Start Last Admin Trade Name Freq PRN Reason Stop Dose Admin Acetaminophen 650 mg 04/05/17 17:56 04/10/17 00:50 Tylenol - PO 650 mg Q6H PRN Administration PAIN OR FEVER Albuterol/Ipratropium 1 amp 04/06/17 12:00 04/14/17 11:39 Duoneb - NEB 1 amp QIDR [facility] Administration Amlodipine Besylate 10 mg 04/06/17 10:00 04/14/17 09:01 Norvasc - PO 10 mg DAILY [facility] Administration Aspirin 81 mg 04/06/17 10:00 04/14/17 09:01 Asa - PO 81 mg DAILY [facility] Administration Atorvastatin Calcium 40 mg 04/05/17 22:00 04/13/17 22:17 Lipitor - PO 40 mg HS [facility] Administration Carvedilol 3.125 mg 04/10/17 10:00 04/14/17 09:01 Coreg - PO 3.125 mg BID [facility] Administration Docusate Sodium 100 mg 04/06/17 10:00 04/14/17 09:01 Colace - PO 100 mg DAILY [facility] Administration Furosemide 40 mg 04/10/17 11:45 04/14/17 09:01 Lasix - PO 40 mg DAILY [facility] Administration Ceftriaxone Sodium 100 mls @ 200 mls/hr 04/06/17 10:00 04/14/17 12:11 Rocephin 2gm Ivpb (Pre-Docked) IVPB 200 mls/hr DAILY [facility] Administration Clindamycin Phosphate 50 mls @ 100 mls/hr 04/10/17 18:00 04/14/17 11:30 Cleocin 300 Mg Premix Ivpb IVPB 100 mls/hr Q8H-IV [facility] Administration Insulin Aspart 1 vial 04/05/17 22:00 04/14/17 11:39 Novolog Vial Sliding Scale - SQ 2 units ACHS [facility] Administration Protocol Insulin Detemir 25 units 04/05/17 22:00 04/13/17 22:22 Levemir Vial SQ 25 units HS [facility] Administration Isosorbide Mononitrate 30 mg 04/06/17 10:00 04/14/17 09:01 Imdur - PO 30 mg DAILY [facility] Administration Levothyroxine Sodium 88 mcg 04/06/17 07:00 04/14/17 06:04 Synthroid - PO 88 mcg AM [facility] Administration Montelukast Sodium 10 mg 04/06/17 22:00 04/13/17 22:17 Singulair - PO 10 mg HS [facility] Administration Nystatin 1 applic 04/06/17 10:00 04/14/17 13:19 Mycostatin Cream - TP Not Given QID [facility] Prednisone 15 mg 04/13/17 16:16 04/14/17 09:01 Deltasone - PO 15 mg DAILY [facility] Administration Fluticasone/Salmeterol 1 puff 04/09/17 22:00 04/14/17 09:02 Advair 100mcg/50mcg - IH 1 puff BID [facility] Administration ASSESSMENT/PLAN: f/u ID recs This is a 76 y/o F with PMH obesity, cva (with residual right sided weakness), asthma, ckd, cad (s/p cardiac cath), DM, HTN, thyroid disease, GI bleed with anemia (s/p transfusion in the past) who presented to the ED with left abdominal and flank pain. #Cellulitis -Per ID, will keep pt for IV ABx -Right thigh U/S to r/o abscess #Sepsis -blood and urine cultures are positive for different organisms. Thus, sepsis secondary to UTI is unlikely. Throat without erythema -vitals in ED: temp 102.5, BP 138/90, HR 71, O2 sat 100% -in ED, pt received 1 dose Vanco 250mg IVPB, NS 2600ml, acetaminophen 1000mg IVPB, UA (+1 prot, +1 blood, +1 LE, RBC < 1, WBC 15), urine culture, blood culture -Blood cultures show Group B Strep. Repeat cultures negative -Urine cultures show E. coli -Acetaminophen 650mg Q6H PRN -Ceftriaxone 2gm Daily -Clinda 300 mg IVPB day 5 today -Recent hospitalist encounter: u/s ruled out DVT. Cellulitis of inner R thigh is resolving with Abx. Will continue. -Right thigh cellulitis: is still slightly red and tender #Pyelonephritis -Nephro consult (Dr. Zamorano, Dr. Singh) appreciated. -Renal U/S pending. Pt refused. Would not explain why. -Urine cultures show E. 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
--- NOTE | 2017-04-14 15:20 | PN ---
Progress Note, Physician History of Present Illness: leg continues to improve small area of fluctuation noted at the end of the swelling - Current Medication List Current Medications: Active Medications Acetaminophen (Tylenol -) 650 mg PO Q6H PRN PRN Reason: PAIN OR FEVER Last Admin: 04/10/17 00:50 Dose: 650 mg Albuterol/Ipratropium (Duoneb -) 1 amp NEB QIDR [facility] Last Admin: 04/14/17 11:39 Dose: 1 amp Amlodipine Besylate (Norvasc -) 10 mg PO DAILY [facility] Last Admin: 04/14/17 09:01 Dose: 10 mg Aspirin (Asa -) 81 mg PO DAILY [facility] Last Admin: 04/14/17 09:01 Dose: 81 mg Atorvastatin Calcium (Lipitor -) 40 mg PO HS [facility] Last Admin: 04/13/17 22:17 Dose: 40 mg Carvedilol (Coreg -) 3.125 mg PO BID [facility] Last Admin: 04/14/17 09:01 Dose: 3.125 mg Docusate Sodium (Colace -) 100 mg PO DAILY [facility] Last Admin: 04/14/17 09:01 Dose: 100 mg Furosemide (Lasix -) 40 mg PO DAILY [facility] Last Admin: 04/14/17 09:01 Dose: 40 mg Ceftriaxone Sodium (Rocephin 2gm Ivpb (Pre-Docked)) 100 mls @ 200 mls/hr IVPB DAILY [facility] Last Admin: 04/14/17 12:11 Dose: 200 mls/hr Clindamycin Phosphate (Cleocin 300 Mg Premix Ivpb) 50 mls @ 100 mls/hr IVPB Q8H -IV [facility] Last Admin: 04/14/17 11:30 Dose: 100 mls/hr Insulin Aspart (Novolog Vial Sliding Scale -) 1 vial SQ ACHS [facility] PRN Reason: Protocol Last Admin: 04/14/17 11:39 Dose: 2 units Insulin Detemir (Levemir Vial) 25 units SQ HS [facility] Last Admin: 04/13/17 22:22 Dose: 25 units Isosorbide Mononitrate (Imdur -) 30 mg PO DAILY [facility] Last Admin: 04/14/17 09:01 Dose: 30 mg Levothyroxine Sodium (Synthroid -) 88 mcg PO AM [facility] Last Admin: 04/14/17 06:04 Dose: 88 mcg Montelukast Sodium (Singulair -) 10 mg PO HS [facility] Last Admin: 04/13/17 22:17 Dose: 10 mg Nystatin (Mycostatin Cream -) 1 applic TP QID [facility] Last Admin: 04/14/17 13:19 Dose: Not Given Prednisone (Deltasone -) 15 mg PO DAILY [facility] Last Admin: 04/14/17 09:01 Dose: 15 mg Fluticasone/Salmeterol (Advair 100mcg/50mcg -) 1 puff IH BID [facility] Last Admin: 04/14/17 09:02 Dose: 1 puff - Objective Vital Signs: Vital Signs Temperature 97.6 F 04/14/17 06:00 Pulse Rate 71 04/14/17 10:49 Respiratory Rate 20 04/14/17 09:00 Blood Pressure 134/74 04/14/17 09:00 O2 Sat by Pulse Oximetry (%) 93 L 04/14/17 10:49 Constitutional: Yes: No Distress, Calm Cardiovascular: Yes: Regular Rate and Rhythm Respiratory: Yes: Regular, CTA Bilaterally Gastrointestinal: Yes: Normal Bowel Sounds, Soft Musculoskeletal: Yes: Other Extremities: Yes: Other (erythema improving on the rt thigh small area of fluctuation present) Integumentary: Yes: Erythema Neurological: Yes: Alert, Oriented Psychiatric: Yes: Alert, Oriented Labs: CBC, BMP 04/14/17 06:05 04/14/17 06:05 INR, PTT INR 1.27 (0.82-1.09) H 04/05/17 12:20 Assessment/Plan patient evaluated patient is now bacteremic i doubt that this coming from the kidneys i am worried about other issues Problem List - Problems (1) CKD (chronic kidney disease) Code(s): N18.9 - CHRONIC KIDNEY DISEASE, UNSPECIFIED (2) Sepsis Code(s): A41.9 - SEPSIS, UNSPECIFIED ORGANISM Qualifiers: Sepsis type: Escherichia coli Qualified Code(s): A41.51 - Sepsis due to Escherichia coli [E. coli] (3) UTI (urinary tract infection) Code(s): N39.0 - URINARY TRACT INFECTION, SITE NOT SPECIFIED Qualifiers: Urinary tract infection type: acute cystitis Hematuria presence: without hematuria Qualified Code(s): N30.00 - Acute cystitis without hematuria (4) Anemia Code(s): D64.9 - ANEMIA, UNSPECIFIED Qualifiers: Iron deficiency anemia type: chronic blood loss (5) Diabetes Code(s): E11.9 - TYPE 2 DIABETES MELLITUS WITHOUT COMPLICATIONS (6) Elevated BUN Code(s): R79.9 - ABNORMAL FINDING OF BLOOD CHEMISTRY, UNSPECIFIED (7) Elevated serum creatinine Code(s): R79.89 - OTHER SPECIFIED ABNORMAL FINDINGS OF BLOOD CHEMISTRY (8) HTN (hypertension) Code(s): I10 - ESSENTIAL (PRIMARY) HYPERTENSION (9) CVA (cerebral vascular accident) Code(s): I63.9 - CEREBRAL INFARCTION, UNSPECIFIED (10) Proteinuria Code(s): R80.9 - PROTEINURIA, UNSPECIFIED (11) Leukocytosis Code(s): D72.829 - ELEVATED WHITE BLOOD CELL COUNT, UNSPECIFIED plan continue current abx continue monitoring the leg nick negative pls get u/s of the thigh to r/o abscess/collection
[2017-04-14] MEDS ORDERED: INSULIN (NOVOLOG) ASPART 100 UNITS/ML 10ML VIAL ONE (20:51)
[2017-04-14] MEDS: ATORVASTATIN CA 40 MG TABLET (FP) PO SCH (22:08)
[2017-04-14] MEDS: INSULIN DETEMIR 100 UNITS/ML MDV SQ SCH (22:08)
[2017-04-14] MEDS: MONTELUKAST NA 10 MG TABLET PO SCH (22:08)
[2017-04-15] MEDS: CLINDAMYCIN 300 MG PREMIX IVPB 50 ML IVPB SCH ×3 (01:47→17:13)
[2017-04-15] MEDS: INSULIN SLIDING SCALE (NOVOLOG) 1 VIAL SQ SCH ×4 (06:06→22:14)
[2017-04-15] MEDS: LEVOTHYROXINE NA 88 MCG TABLET (FP) PO SCH (06:06)
[2017-04-15] MEDS: ALBUTEROL SO4 2.5/IPRATROPIUM 0.5 INH SOL 3 ML VIAL.NEB. NEB SCH ×4 (06:40→23:52)
[2017-04-15 07:43] LABS: MCH 27.3 pg (25.7-33.7); MCHC 32.1 g/dl (32.0-36.0); MEAN PLT VOLUME 8.3 fl (7.5-11.1); PLATELET COUNT 251 K/MM3 (134-434); RDW 15.7 % (11.6-15.6); WHITE BLOOD COUNT 13.3 K/mm3 (4.0-10.0)
[2017-04-15 08:12] LABS: ALBUMIN 2.9 g/dl (3.4-5.0); ANION GAP 7 (8-16); CALCIUM 8.7 mg/dL (8.5-10.1); CO2 30 mmol/L (21-32); CREATININE 2.7 mg/dL (0.55-1.02); GLUCOSE,RANDOM 91 mg/dL (74-106); SGOT/AST 12 U/L (15-37); SGPT/ALT 16 U/L (12-78); TOT PROT 6.4 g/dl (6.4-8.2)
[2017-04-15 08:17] LABS: ALK PHOS 77 U/L (45-117); BILIRUBIN,TOTAL 0.3 mg/dL (0.2-1.0)
--- NOTE | 2017-04-15 09:22 | PN ---
Teaching Attending Note Name of Resident: Mark Garcia ATTENDING PHYSICIAN STATEMENT I saw and evaluated the patient. I reviewed the resident's note and discussed the case with the resident. I agree with the resident's findings and plan as documented. SUBJECTIVE: Patient is comfrotable with no acute distress, no fever or chills, no shortness of breath. OBJECTIVE: Vital Signs Temperature 98.0 F 04/15/17 06:00 Pulse Rate 70 04/15/17 06:00 Respiratory Rate 20 04/15/17 06:00 Blood Pressure 138/79 04/15/17 06:00 O2 Sat by Pulse Oximetry (%) 93 L 04/14/17 22:00 CBCD WBC 13.3 K/mm3 (4.0-10.0) H 04/15/17 06:28 RBC 3.08 M/mm3 (3.60-5.2) L 04/15/17 06:28 Hgb 8.4 GM/dL (10.7-15.3) L 04/15/17 06:28 Hct 26.2 % (32.4-45.2) L 04/15/17 06:28 MCV 85.0 fl (80-96) 04/15/17 06:28 MCHC 32.1 g/dl (32.0-36.0) 04/15/17 06:28 RDW 15.7 % (11.6-15.6) H 04/15/17 06:28 Plt Count 251 K/MM3 (134-434) 04/15/17 06:28 MPV 8.3 fl (7.5-11.1) 04/15/17 06:28 CMP Sodium 137 mmol/L (136-145) 04/15/17 06:28 Potassium 4.6 mmol/L (3.5-5.1) 04/15/17 06:28 Chloride 100 mmol/L (98-107) 04/15/17 06:28 Carbon Dioxide 30 mmol/L (21-32) 04/15/17 06:28 Anion Gap 7 (8-16) L 04/15/17 06:28 BUN 69 mg/dL (7-18) H 04/15/17 06:28 Creatinine 2.7 mg/dL (0.55-1.02) H 04/15/17 06:28 Creat Clearance w eGFR 17.13 (>60) 04/15/17 06:28 Random Glucose 91 mg/dL (74-106) D 04/15/17 06:28 Calcium 8.7 mg/dL (8.5-10.1) 04/15/17 06:28 Total Bilirubin 0.3 mg/dL (0.2-1.0) D 04/15/17 06:28 AST 12 U/L (15-37) L D 04/15/17 06:28 ALT 16 U/L (12-78) D 04/15/17 06:28 Alkaline Phosphatase 77 U/L (45-117) 04/15/17 06:28 Total Protein 6.4 g/dl (6.4-8.2) 04/15/17 06:28 Albumin 2.9 g/dl (3.4-5.0) L 04/15/17 06:28 CARDIAC ENZYMES Creatine Kinase 123 IU/L (26-192) 04/05/17 19:50 Troponin I < 0.02 ng/ml (0.00-0.05) 04/05/17 19:50 Current Medications Generic Name Dose Route Start Last Admin Trade Name Freq PRN Reason Stop Dose Admin Acetaminophen 650 mg 04/05/17 17:56 04/10/17 00:50 Tylenol - PO 650 mg Q6H PRN Administration PAIN OR FEVER Albuterol/Ipratropium 1 amp 04/06/17 12:00 04/15/17 06:40 Duoneb - NEB 1 amp QIDR [facility] Administration Amlodipine Besylate 10 mg 04/06/17 10:00 04/14/17 09:01 Norvasc - PO 10 mg DAILY [facility] Administration Aspirin 81 mg 04/06/17 10:00 04/14/17 09:01 Asa - PO 81 mg DAILY [facility] Administration Atorvastatin Calcium 40 mg 04/05/17 22:00 04/14/17 22:08 Lipitor - PO 40 mg HS [facility] Administration Carvedilol 3.125 mg 04/10/17 10:00 04/14/17 22:08 Coreg - PO 3.125 mg BID [facility] Administration Docusate Sodium 100 mg 04/06/17 10:00 04/14/17 09:01 Colace - PO 100 mg DAILY [facility] Administration Furosemide 40 mg 04/10/17 11:45 04/14/17 09:01 Lasix - PO 40 mg DAILY [facility] Administration Ceftriaxone Sodium 100 mls @ 200 mls/hr 04/06/17 10:00 04/14/17 12:11 Rocephin 2gm Ivpb (Pre-Docked) IVPB 200 mls/hr DAILY [facility] Administration Clindamycin Phosphate 50 mls @ 100 mls/hr 04/10/17 18:00 04/15/17 01:47 Cleocin 300 Mg Premix Ivpb IVPB 100 mls/hr Q8H-IV [facility] Administration Insulin Aspart 1 vial 04/05/17 22:00 04/15/17 06:06 Novolog Vial Sliding Scale - SQ Not Given ACHS [facility] Protocol Insulin Detemir 25 units 04/05/17 22:00 04/14/17 22:08 Levemir Vial SQ 25 units HS [facility] Administration Isosorbide Mononitrate 30 mg 04/06/17 10:00 04/14/17 09:01 Imdur - PO 30 mg DAILY [facility] Administration Levothyroxine Sodium 88 mcg 04/06/17 07:00 04/15/17 06:06 Synthroid - PO 88 mcg AM [facility] Administration Montelukast Sodium 10 mg 04/06/17 22:00 04/14/17 22:08 Singulair - PO 10 mg HS [facility] Administration Nystatin 1 applic 04/06/17 10:00 04/14/17 22:07 Mycostatin Cream - TP 1 applic QID [facility] Administration Prednisone 15 mg 04/13/17 16:16 04/14/17 09:01 Deltasone - PO 15 mg DAILY [facility] Administration Fluticasone/Salmeterol 1 puff 04/09/17 22:00 04/14/17 22:08 Advair 100mcg/50mcg - IH 1 puff BID [facility] Administration Home Medications Medication Instructions Recorded Atorvastatin Ca [Lipitor] 40 mg PO HS #7 tablet 08/05/12 Amlodipine Besylate [Norvasc -] 10 mg PO DAILY 03/02/16 Docusate Sodium [Colace -] 100 mg PO DAILY 08/09/16 Insulin Aspart [Novolog Flexpen] 100 unit SQ ASDIR 08/09/16 Insulin (Levemir) [Levemir Vial] 25 units SQ HS ml 08/27/16 Isosorbide Mononitrate [Imdur -] 30 mg PO DAILY tab.sr.24h 08/27/16 Levothyroxine [Synthroid -] 88 mcg PO AM tablet 08/27/16 Aspirin [ASA -] 81 mg PO DAILY 04/05/17 Montelukast Na [Singulair -] 10 mg PO DAILY 04/06/17 Amlodipine Besylate [Norvasc -] 5 mg PO DAILY 04/08/17 Atorvastatin Ca [Lipitor] 40 mg PO HS 04/08/17 Carvedilol [Coreg -] 25 mg PO BID 04/08/17 Duloxetine HCl [Cymbalta] 30 mg PO DAILY 04/08/17 Furosemide [Lasix] 40 mg PO DAILY 04/08/17 PE: per resident's notes Microbiology 04/06/17 18:50 Blood - Peripheral Venous Blood Culture - Final NO GROWTH AFTER 5 DAYS INCUBATION 04/06/17 18:50 Blood - Peripheral Venous Blood Culture - Final NO GROWTH AFTER 5 DAYS INCUBATION 04/05/17 21:09 Urine - Urine Clean Catch Urine Culture - Final Escherichia Coli 04/05/17 12:18 Blood - Peripheral Venous Blood Culture - Final Beta Hem Streptococcus Group G 04/05/17 12:18 Blood - Peripheral Venous Blood Culture - Final Beta Hem Streptococcus Group G ASSESSMENT AND PLAN: 76 yo with h/o HTN, HL CVA (Rt hemiparesis), CKD, diastolic chf, IDDM, ROSITA, anemia, COPD, hypothyroid, obesity admitted with uti and bacteremia. # Strep bacteremia- likely due to RLE cellulitis. VERONICA negative for vegetations. repeat BCx negative. on Clinda day 5. will d/w ID about duration of IV antibiotics. Acute Leukocytosis improving but patient is on Steroids # UTI- E.coli.with possible pylenophritis. will repeat UA to evaluate if cleared since having symptoms. on Ceftriaxone day 10. # CKD- at baseline. nephrology on board. # Acute COPD exacerbation- clinically improved. cont steroid taper DVT Px: Heparin sq
[2017-04-15] MEDS ORDERED: PT OWN MED DRAWER 7, Y5N ONE ×2 (10:44→17:01)
[2017-04-15] MEDS: DOCUSATE SODIUM 100 MG CAPSULE (FP) PO SCH (10:53)
[2017-04-15] MEDS: ISOSORBIDE MONONITRATE 30 MG TAB.SR.24H (FP) PO SCH (10:53)
[2017-04-15] MEDS: FUROSEMIDE 40 MG TABLET (FP) PO SCH (10:53)
[2017-04-15] MEDS: ASPIRIN 81 MG CHEWABLE TABLETS PO SCH (10:53)
[2017-04-15] MEDS: predniSONE 5 MG TABLET (UD) PO SCH (10:53)
[2017-04-15] MEDS: amLODIPine BESYLATE 10 MG TABLET (FP) PO SCH (10:54)
[2017-04-15] MEDS: CEFTRIAXONE 100 ML IVPB SCH (10:54)
[2017-04-15] MEDS: FLUTICASONE/SALMETEROL 100 MCG/50 MCG DISKUS IH SCH ×2 (10:54→22:12)
[2017-04-15] MEDS: CARVEDILOL 3.125 MG TABLET (FP) PO SCH ×2 (10:54→22:12)
[2017-04-15] MEDS: NYSTATIN 100,000 UNIT/GM TOPICAL CREAM 15 GM TUBE TP SCH ×4 (10:55→22:13)
[2017-04-15 10:59] LABS: ANISOCYTOSIS 1+; POLYCHROMASIA OCC
[2017-04-15 11:00] LABS: OVALOCYTES OCC
--- NOTE | 2017-04-15 11:08 | PN ---
Progress Note (short form) - Note Progress Note: s: no cp sob palps dizzy o: Vital Signs Period Temp Pulse Resp BP Sys/Mike Pulse Ox Last 24 Hr 97.8 F-98.6 F 70-82 18-22 121-138/62-79 93-98 nad, calm jvd elevated, neck supple cta bl nl effort RRR nl s1, s2 no mrg + bs soft nt nd obese ext with trace dependent edema aaox3 no jaundice, diaphoresis Current Medications Generic Name Dose Route Start Last Admin Trade Name Freq PRN Reason Stop Dose Admin Acetaminophen 650 mg 04/05/17 17:56 04/10/17 00:50 Tylenol - PO 650 mg Q6H PRN Administration PAIN OR FEVER Albuterol/Ipratropium 1 amp 04/06/17 12:00 04/15/17 06:40 Duoneb - NEB 1 amp QIDR [facility] Administration Amlodipine Besylate 10 mg 04/06/17 10:00 04/15/17 10:54 Norvasc - PO 10 mg DAILY [facility] Administration Aspirin 81 mg 04/06/17 10:00 04/15/17 10:53 Asa - PO 81 mg DAILY [facility] Administration Atorvastatin Calcium 40 mg 04/05/17 22:00 04/14/17 22:08 Lipitor - PO 40 mg HS [facility] Administration Carvedilol 3.125 mg 04/10/17 10:00 04/15/17 10:54 Coreg - PO 3.125 mg BID [facility] Administration Docusate Sodium 100 mg 04/06/17 10:00 04/15/17 10:53 Colace - PO 100 mg DAILY [facility] Administration Furosemide 40 mg 04/10/17 11:45 04/15/17 10:53 Lasix - PO 40 mg DAILY [facility] Administration Ceftriaxone Sodium 100 mls @ 200 mls/hr 04/06/17 10:00 04/15/17 10:54 Rocephin 2gm Ivpb (Pre-Docked) IVPB 200 mls/hr DAILY [facility] Administration Clindamycin Phosphate 50 mls @ 100 mls/hr 04/10/17 18:00 04/15/17 10:54 Cleocin 300 Mg Premix Ivpb IVPB 100 mls/hr Q8H-IV [facility] Administration Insulin Aspart 1 vial 04/05/17 22:00 04/15/17 06:06 Novolog Vial Sliding Scale - SQ Not Given ACHS [facility] Protocol Insulin Detemir 25 units 04/05/17 22:00 04/14/17 22:08 Levemir Vial SQ 25 units HS [facility] Administration Isosorbide Mononitrate 30 mg 04/06/17 10:00 04/15/17 10:53 Imdur - PO 30 mg DAILY [facility] Administration Levothyroxine Sodium 88 mcg 04/06/17 07:00 04/15/17 06:06 Synthroid - PO 88 mcg AM [facility] Administration Montelukast Sodium 10 mg 04/06/17 22:00 04/14/17 22:08 Singulair - PO 10 mg HS [facility] Administration Nystatin 1 applic 04/06/17 10:00 04/15/17 10:55 Mycostatin Cream - TP 1 applic QID [facility] Administration Prednisone 15 mg 04/13/17 16:16 04/15/17 10:53 Deltasone - PO 15 mg DAILY [facility] Administration Fluticasone/Salmeterol 1 puff 04/09/17 22:00 04/15/17 10:54 Advair 100mcg/50mcg - IH 1 puff BID [facility] Administration CBC, BMP 04/15/17 06:28 04/15/17 06:28 echo 03/2017: tds. grossly nl lv/rv. mac. TV/MV/PV not well seen. MAC, no mr , 1+ tr. no ar. nick 03/2017: nl lv/rv, mild mr, trace tr, no endocarditis ekg: nsr. new non-specific diffuse twave ab a/p: 76 yo with h/o HTN, HL CVA (Rt hemiparesis), CKD, diastolic chf, IDDM, ROSITA , anemia, COPD, hypothyroid, obesity admitted with uti and bacteremia. bacteremia - NICK without evidence of endocarditis - cont abx per ID diastolic HF -cxr clear -stable, cont po lasix hld - on atorva htn -stable on current meds cva - on asa, statin CKD - stable, renal following rosita - on bipap at night
[2017-04-15] MEDS: POLYETHYLENE GLYCOL 3350 119 GM BTL PO SCH ×2 (12:13→22:11)
--- NOTE | 2017-04-15 12:41 | PN ---
Progress Note (short form) - Note Progress Note: Renal Follow up for CKD Pt seen and examined at the bedside no acute complaints Vital Signs Temperature 98.1 F 04/15/17 10:30 Pulse Rate 68 04/15/17 10:30 Respiratory Rate 20 04/15/17 10:30 Blood Pressure 136/60 04/15/17 10:30 O2 Sat by Pulse Oximetry (%) 98 04/15/17 10:19 Intake & Output 04/12/17 04/13/17 04/14/17 04/15/17 23:59 23:59 23:59 23:59 Intake Total 2017 652 2904 450 Balance 1154 177 5387 450 Weight 291 lb 6 oz 292 lb 2 oz Gen: NAD CVS: RRR, No M/R Lungs: Dec BS at lung bases Abd: soft, Obese, NT/ND ext: trace to 1+ edema in LE, + warmth, no erythema CBC, BMP 04/15/17 06:28 04/15/17 06:28 Laboratory Tests 04/15/17 06:28 Calcium 8.7 Albumin 2.9 L Current Medications Acetaminophen (Tylenol -) 650 mg PO Q6H PRN PRN Reason: PAIN OR FEVER Last Admin: 04/10/17 00:50 Dose: 650 mg Albuterol/Ipratropium (Duoneb -) 1 amp NEB QIDR [facility] Last Admin: 04/15/17 12:05 Dose: 1 amp Amlodipine Besylate (Norvasc -) 10 mg PO DAILY [facility] Last Admin: 04/15/17 10:54 Dose: 10 mg Aspirin (Asa -) 81 mg PO DAILY [facility] Last Admin: 04/15/17 10:53 Dose: 81 mg Atorvastatin Calcium (Lipitor -) 40 mg PO HS [facility] Last Admin: 04/14/17 22:08 Dose: 40 mg Carvedilol (Coreg -) 3.125 mg PO BID [facility] Last Admin: 04/15/17 10:54 Dose: 3.125 mg Docusate Sodium (Colace -) 100 mg PO DAILY [facility] Last Admin: 04/15/17 10:53 Dose: 100 mg Furosemide (Lasix -) 40 mg PO DAILY [facility] Last Admin: 04/15/17 10:53 Dose: 40 mg Ceftriaxone Sodium (Rocephin 2gm Ivpb (Pre-Docked)) 100 mls @ 200 mls/hr IVPB DAILY [facility] Last Admin: 04/15/17 10:54 Dose: 200 mls/hr Clindamycin Phosphate (Cleocin 300 Mg Premix Ivpb) 50 mls @ 100 mls/hr IVPB Q8H -IV [facility] Last Admin: 04/15/17 10:54 Dose: 100 mls/hr Insulin Aspart (Novolog Vial Sliding Scale -) 1 vial SQ ACHS [facility] PRN Reason: Protocol Last Admin: 04/15/17 12:12 Dose: Not Given Insulin Detemir (Levemir Vial) 25 units SQ HS [facility] Last Admin: 04/14/17 22:08 Dose: 25 units Isosorbide Mononitrate (Imdur -) 30 mg PO DAILY [facility] Last Admin: 04/15/17 10:53 Dose: 30 mg Levothyroxine Sodium (Synthroid -) 88 mcg PO AM [facility] Last Admin: 04/15/17 06:06 Dose: 88 mcg Montelukast Sodium (Singulair -) 10 mg PO HS [facility] Last Admin: 04/14/17 22:08 Dose: 10 mg Nystatin (Mycostatin Cream -) 1 applic TP QID [facility] Last Admin: 04/15/17 10:55 Dose: 1 applic Polyethylene Glycol (Miralax (For Daily Use) -) 17 gm PO BID [facility] Last Admin: 04/15/17 12:13 Dose: 17 gm Prednisone (Deltasone -) 15 mg PO DAILY [facility] Last Admin: 04/15/17 10:53 Dose: 15 mg Fluticasone/Salmeterol (Advair 100mcg/50mcg -) 1 puff IH BID [facility] Last Admin: 04/15/17 10:54 Dose: 1 puff 76 year old woman with PMhx of CKD Stage 4, Hypertension, DM, CVA who presented with complaints of fever and flank pain and admitted for SIRS/UTI with BUN/Cr of 68/2.9 #CKD stage 4 with subnephrotic proteinuria Etiology of CKD likely related to diabetic + hypertensive kidney disease Cr slightly improved but overall renal function stable #Leukocytosis/Fever/Strep Bacteremia/SIRS VERONICA negative ID rec thigh US to r/o collection on IV Ceftriaxone duration of abx to be determined by ID if pt needs IV access 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 coli] (3) UTI (urinary tract infection) Code(s): N39.0 - URINARY TRACT INFECTION, SITE NOT SPECIFIED Qualifiers: Urinary tract infection type: acute cystitis Hematuria presence: without hematuria Qualified Code(s): N30.00 - Acute cystitis without hematuria (4) Anemia Code(s): D64.9 - ANEMIA, UNSPECIFIED Qualifiers: Iron deficiency anemia type: chronic blood loss (5) Diabetes Code(s): E11.9 - TYPE 2 DIABETES MELLITUS WITHOUT COMPLICATIONS (6) Elevated BUN Code(s): R79.9 - ABNORMAL FINDING OF BLOOD CHEMISTRY, UNSPECIFIED (7) Elevated serum creatinine Code(s): R79.89 - OTHER SPECIFIED ABNORMAL FINDINGS OF BLOOD CHEMISTRY (8) HTN (hypertension) Code(s): I10 - ESSENTIAL (PRIMARY) HYPERTENSION (9) CVA (cerebral vascular accident) Code(s): I63.9 - CEREBRAL INFARCTION, UNSPECIFIED (10) Proteinuria Code(s): R80.9 - PROTEINURIA, UNSPECIFIED (11) Leukocytosis Code(s): D72.829 - ELEVATED WHITE BLOOD CELL COUNT, UNSPECIFIED
--- NOTE | 2017-04-15 15:50 | PN ---
Physical Exam: SUBJECTIVE: Patient seen and examined at bedside. Pt states she feels well today. No acute events overnight. Pt denies headache, fever, chills, cp, sob, abd pain, nausea, vomiting, diarrhea, dysuria. OBJECTIVE: Vital Signs Period Temp Pulse Resp BP Sys/Mike Pulse Ox Last 24 Hr 97.8 F-98.1 F 68-82 18-22 121-138/60-79 93-98 GENERAL: The patient is awake, alert, and fully oriented, in no acute distress. HEAD: Normal with no signs of trauma. EYES: sclera anicteric, conjunctiva clear. No ptosis. ENT:moist mucous membranes. NECK: Trachea midline, full range of motion, supple. LUNGS: Breath sounds equal, clear to auscultation bilaterally, late expiratory wheezes b/l, no crackles, no accessory muscle use. HEART: Distant heart sounds Regular rate and rhythm, S1, S2 without murmur, rub or gallop. ABDOMEN: Soft, nontender, nondistended, normoactive bowel sounds, no guarding, no rebound, no hepatosplenomegaly, no masses. EXTREMITIES: Right thigh cellulitis (improving). 2+ pulses, warm, well-perfused , 1+ edema. NEUROLOGICAL: Cranial nerves II through XII grossly intact. Normal speech, gait not observed. residual R sided weakness PSYCH: Normal mood, normal affect. SKIN: Warm, dry, normal turgor, no rashes or lesions noted Laboratory Results - last 24 hr 04/14/17 04/14/17 04/15/17 17:29 22:06 06:05 WBC RBC Hgb Hct MCV MCH MCHC RDW Plt Count MPV Neutrophils % Lymphocytes % Monocytes % Band Neutrophils Myelocytes Nucleated RBCs Polychromasia Anisocytosis Ovalocytes Sodium Potassium Chloride Carbon Dioxide Anion Gap BUN Creatinine Creat Clearance w eGFR POC Glucometer 234 263 130 Random Glucose Calcium Total Bilirubin AST ALT Alkaline Phosphatase Total Protein Albumin 04/15/17 04/15/17 04/15/17 06:28 06:28 12:07 WBC 13.3 H RBC 3.08 L Hgb 8.4 L Hct 26.2 L MCV 85.0 MCH 27.3 MCHC 32.1 RDW 15.7 H Plt Count 251 MPV 8.3 Neutrophils % 60.0 D Lymphocytes % 24.0 D Monocytes % 12.0 H D Band Neutrophils 2.0 D Myelocytes 1 D Nucleated RBCs 3 H Polychromasia Occ Anisocytosis 1+ Ovalocytes Occ Sodium 137 Potassium 4.6 Chloride 100 Carbon Dioxide 30 Anion Gap 7 L BUN 69 H Creatinine 2.7 H Creat Clearance w eGFR 17.13 POC Glucometer 144 Random Glucose 91 D Calcium 8.7 Total Bilirubin 0.3 D AST 12 L D ALT 16 D Alkaline Phosphatase 77 Total Protein 6.4 Albumin 2.9 L Active Medications Generic Name Dose Route Start Last Admin Trade Name Freq PRN Reason Stop Dose Admin Acetaminophen 650 mg 04/05/17 17:56 04/10/17 00:50 Tylenol - PO 650 mg Q6H PRN Administration PAIN OR FEVER Albuterol/Ipratropium 1 amp 04/06/17 12:00 04/15/17 12:05 Duoneb - NEB 1 amp QIDR [facility] Administration Amlodipine Besylate 10 mg 04/06/17 10:00 04/15/17 10:54 Norvasc - PO 10 mg DAILY [facility] Administration Aspirin 81 mg 04/06/17 10:00 04/15/17 10:53 Asa - PO 81 mg DAILY [facility] Administration Atorvastatin Calcium 40 mg 04/05/17 22:00 04/14/17 22:08 Lipitor - PO 40 mg HS [facility] Administration Carvedilol 3.125 mg 04/10/17 10:00 04/15/17 10:54 Coreg - PO 3.125 mg BID [facility] Administration Docusate Sodium 100 mg 04/06/17 10:00 04/15/17 10:53 Colace - PO 100 mg DAILY [facility] Administration Furosemide 40 mg 04/10/17 11:45 04/15/17 10:53 Lasix - PO 40 mg DAILY [facility] Administration Heparin Sodium (Porcine) 5,000 unit 04/15/17 22:00 Heparin - SQ BID [facility] Ceftriaxone Sodium 100 mls @ 200 mls/hr 04/06/17 10:00 04/15/17 10:54 Rocephin 2gm Ivpb (Pre-Docked) IVPB 200 mls/hr DAILY [facility] Administration Clindamycin Phosphate 50 mls @ 100 mls/hr 04/10/17 18:00 04/15/17 10:54 Cleocin 300 Mg Premix Ivpb IVPB 100 mls/hr Q8H-IV [facility] Administration Insulin Aspart 1 vial 04/05/17 22:00 04/15/17 12:12 Novolog Vial Sliding Scale - SQ Not Given ACHS [facility] Protocol Insulin Detemir 25 units 04/05/17 22:00 04/14/17 22:08 Levemir Vial SQ 25 units HS [facility] Administration Isosorbide Mononitrate 30 mg 04/06/17 10:00 04/15/17 10:53 Imdur - PO 30 mg DAILY [facility] Administration Levothyroxine Sodium 88 mcg 04/06/17 07:00 04/15/17 06:06 Synthroid - PO 88 mcg AM [facility] Administration Montelukast Sodium 10 mg 04/06/17 22:00 04/14/17 22:08 Singulair - PO 10 mg HS [facility] Administration Nystatin 1 applic 04/06/17 10:00 04/15/17 10:55 Mycostatin Cream - TP 1 applic QID [facility] Administration Polyethylene Glycol 17 gm 04/15/17 11:45 04/15/17 12:13 Miralax (For Daily Use) - PO 17 gm BID [facility] Administration Prednisone 15 mg 04/13/17 16:16 04/15/17 10:53 Deltasone - PO 15 mg DAILY [facility] Administration Fluticasone/Salmeterol 1 puff 04/09/17 22:00 04/15/17 10:54 Advair 100mcg/50mcg - IH 1 puff BID [facility] Administration ASSESSMENT/PLAN: This is a 76 y/o F with PMH obesity, cva (with residual right sided weakness), asthma, ckd, cad (s/p cardiac cath), DM, HTN, thyroid disease, GI bleed with anemia (s/p transfusion in the past) who presented to the ED with left abdominal and flank pain. #Cellulitis -resolving -Per ID, will keep pt for IV ABx -Right thigh U/S (04/15/17): no fluid collection #Sepsis -blood and urine cultures are positive for different organisms. Thus, sepsis secondary to UTI is unlikely. Throat without erythema -vitals in ED: temp 102.5, BP 138/90, HR 71, O2 sat 100% -in ED, pt received 1 dose Vanco 250mg IVPB, NS 2600ml, acetaminophen 1000mg IVPB, UA (+1 prot, +1 blood, +1 LE, RBC < 1, WBC 15), urine culture, blood culture -Blood cultures show Group B Strep. Repeat cultures negative -Urine cultures show E. coli -Acetaminophen 650mg Q6H PRN -Ceftriaxone 2gm Daily -Clinda 300 mg IVPB day 5 today -Recent hospitalist encounter: u/s ruled out DVT. Cellulitis of inner R thigh is resolving with Abx. Will continue. -Right thigh cellulitis: is still slightly red and tender #Pyelonephritis -Nephro consult (Dr. Zamorano, Dr. Singh) appreciated. -Renal U/S pending. Pt refused. Would not explain why. -Urine cultures show E. coli -Pt on Ceftriaxone 2gm IVPB #r/o bacterial endocarditis -TTE shows no vegetations -Barium swallow study shows healthy esophagus #DM -Novalog vial ISS -Levemir 25u SQ HS -A1c 7.6% #HTN -Amlodipine 10mg PO Daily #CKD -per nephro note: stage IV with subnephrotic proteinuria -renal function stable #CAD -Lipitor 40mg PO HS -Isosorbide Mononitrate 30mg PO Daily -ASA 81mg PO Daily -Previous Echo shows normal LVEF #Asthma/COPD -Albuterol Neb 0.083% Q6H PRN -Singulair 10mg PO HS -Advair 1 puff IH BID #Hypothyroid -Synthroid 88mcg PO AM #Constipation -Colace 100mg PO Daily -Miralax 17gm PO BID #insomnia -Trazodone 25mg PO #FEN -not on fluids -high BUN/Structural Manager likely 2/2 CKD -soft diet #Dispo -Admit to Med/Surg Visit type - Emergency Visit Emergency Visit: No - New Patient This patient is new to me today: No - Critical Care Critical Care patient: No - Discharge Referral Referred to [facility] Med P.C.: No
[2017-04-15 16:19] LABS: URINE APPEARANCE CLOUDY; URINE BILIRUBIN NEGATIVE (NEGATIVE); URINE BLOOD 1+ (NEGATIVE); URINE COLOR STRAW; URINE GLUCOSE (UA) NEGATIVE (NEGATIVE); URINE KETONE NEGATIVE (NEGATIVE); URINE LEUK ESTERASE NEGATIVE (NEGATIVE); URINE NITRITE NEGATIVE (NEGATIVE); URINE PROTEIN NEGATIVE (NEGATIVE); URINE UROBILINOGEN NEGATIVE mg/dL (0.2-1.0)
[2017-04-15 17:51] LABS: URINE BACTERIA RARE /hpf (NONE SEEN); URINE MUCUS RARE; URINE RBC 45 /hpf (0-3); URINE WBC 2 /hpf (3-5)
--- NOTE | 2017-04-15 17:53 | PN ---
Progress Note, Physician History of Present Illness: patient doing better no complaints leg looks good u/s result noted - Current Medication List Current Medications: Active Medications Acetaminophen (Tylenol -) 650 mg PO Q6H PRN PRN Reason: PAIN OR FEVER Last Admin: 04/10/17 00:50 Dose: 650 mg Albuterol/Ipratropium (Duoneb -) 1 amp NEB QIDR [facility] Last Admin: 04/15/17 12:05 Dose: 1 amp Amlodipine Besylate (Norvasc -) 10 mg PO DAILY [facility] Last Admin: 04/15/17 10:54 Dose: 10 mg Aspirin (Asa -) 81 mg PO DAILY [facility] Last Admin: 04/15/17 10:53 Dose: 81 mg Atorvastatin Calcium (Lipitor -) 40 mg PO HS [facility] Last Admin: 04/14/17 22:08 Dose: 40 mg Carvedilol (Coreg -) 3.125 mg PO BID [facility] Last Admin: 04/15/17 10:54 Dose: 3.125 mg Docusate Sodium (Colace -) 100 mg PO DAILY [facility] Last Admin: 04/15/17 10:53 Dose: 100 mg Furosemide (Lasix -) 40 mg PO DAILY [facility] Last Admin: 04/15/17 10:53 Dose: 40 mg Heparin Sodium (Porcine) (Heparin -) 5,000 unit SQ BID [facility] Ceftriaxone Sodium (Rocephin 2gm Ivpb (Pre-Docked)) 100 mls @ 200 mls/hr IVPB DAILY [facility] Last Admin: 04/15/17 10:54 Dose: 200 mls/hr Clindamycin Phosphate (Cleocin 300 Mg Premix Ivpb) 50 mls @ 100 mls/hr IVPB Q8H -IV [facility] Last Admin: 04/15/17 17:13 Dose: 100 mls/hr Insulin Aspart (Novolog Vial Sliding Scale -) 1 vial SQ ACHS [facility] PRN Reason: Protocol Last Admin: 04/15/17 17:10 Dose: 2 units Insulin Detemir (Levemir Vial) 25 units SQ HS [facility] Last Admin: 04/14/17 22:08 Dose: 25 units Isosorbide Mononitrate (Imdur -) 30 mg PO DAILY [facility] Last Admin: 04/15/17 10:53 Dose: 30 mg Levothyroxine Sodium (Synthroid -) 88 mcg PO AM [facility] Last Admin: 04/15/17 06:06 Dose: 88 mcg Montelukast Sodium (Singulair -) 10 mg PO HS [facility] Last Admin: 04/14/17 22:08 Dose: 10 mg Nystatin (Mycostatin Cream -) 1 applic TP QID [facility] Last Admin: 04/15/17 17:13 Dose: 1 applic Polyethylene Glycol (Miralax (For Daily Use) -) 17 gm PO BID [facility] Last Admin: 04/15/17 12:13 Dose: 17 gm Prednisone (Deltasone -) 15 mg PO DAILY [facility] Last Admin: 04/15/17 10:53 Dose: 15 mg Fluticasone/Salmeterol (Advair 100mcg/50mcg -) 1 puff IH BID [facility] Last Admin: 04/15/17 10:54 Dose: 1 puff - Objective Vital Signs: Vital Signs Temperature 97.8 F 04/15/17 14:43 Pulse Rate 66 04/15/17 14:43 Respiratory Rate 24 04/15/17 14:43 Blood Pressure 128/66 04/15/17 14:43 O2 Sat by Pulse Oximetry (%) 98 04/15/17 10:19 Constitutional: Yes: No Distress, Calm Cardiovascular: Yes: Regular Rate and Rhythm Respiratory: Yes: Regular, CTA Bilaterally Gastrointestinal: Yes: Normal Bowel Sounds, Soft Musculoskeletal: Yes: Other Extremities: Yes: Erythema (much better), Other Neurological: Yes: Alert, Oriented Psychiatric: Yes: Alert, Oriented Labs: CBC, BMP 04/15/17 06:28 04/15/17 06:28 INR, PTT INR 1.27 (0.82-1.09) H 04/05/17 12:20 Assessment/Plan patient evaluated patient is now bacteremic i doubt that this coming from the kidneys i am worried about other issues Problem List - Problems (1) CKD (chronic kidney disease) Code(s): N18.9 - CHRONIC KIDNEY DISEASE, UNSPECIFIED (2) Sepsis Code(s): A41.9 - SEPSIS, UNSPECIFIED ORGANISM Qualifiers: Sepsis type: Escherichia coli Qualified Code(s): A41.51 - Sepsis due to Escherichia coli [E. coli] (3) UTI (urinary tract infection) Code(s): N39.0 - URINARY TRACT INFECTION, SITE NOT SPECIFIED Qualifiers: Urinary tract infection type: acute cystitis Hematuria presence: without hematuria Qualified Code(s): N30.00 - Acute cystitis without hematuria (4) Anemia Code(s): D64.9 - ANEMIA, UNSPECIFIED Qualifiers: Iron deficiency anemia type: chronic blood loss (5) Diabetes Code(s): E11.9 - TYPE 2 DIABETES MELLITUS WITHOUT COMPLICATIONS (6) Elevated BUN Code(s): R79.9 - ABNORMAL FINDING OF BLOOD CHEMISTRY, UNSPECIFIED (7) Elevated serum creatinine Code(s): R79.89 - OTHER SPECIFIED ABNORMAL FINDINGS OF BLOOD CHEMISTRY (8) HTN (hypertension) Code(s): I10 - ESSENTIAL (PRIMARY) HYPERTENSION (9) CVA (cerebral vascular accident) Code(s): I63.9 - CEREBRAL INFARCTION, UNSPECIFIED (10) Proteinuria Code(s): R80.9 - PROTEINURIA, UNSPECIFIED (11) Leukocytosis Code(s): D72.829 - ELEVATED WHITE BLOOD CELL COUNT, UNSPECIFIED plan continue current abx u/s result noted cn switch abx to oral augmentin 500 mg bis for another 5 days can stop clinda wbc marginally high
[2017-04-15] MEDS ORDERED: INSULIN (NOVOLOG) ASPART 100 UNITS/ML 10ML VIAL ONE (21:01)
[2017-04-15] MEDS: ATORVASTATIN CA 40 MG TABLET (FP) PO SCH (22:12)
[2017-04-15] MEDS: HEPARIN NA (PORCINE) 5,000 UNITS/ML 1ML VIAL SQ SCH (22:12)
[2017-04-15] MEDS: MONTELUKAST NA 10 MG TABLET PO SCH (22:12)
[2017-04-15] MEDS: INSULIN DETEMIR 100 UNITS/ML MDV SQ SCH (22:13)
[2017-04-16] MEDS: CLINDAMYCIN 300 MG PREMIX IVPB 50 ML IVPB SCH ×2 (01:24→09:51)
[2017-04-16] MEDS: INSULIN SLIDING SCALE (NOVOLOG) 1 VIAL SQ SCH ×3 (06:22→17:46)
[2017-04-16] MEDS: LEVOTHYROXINE NA 88 MCG TABLET (FP) PO SCH (06:23)
[2017-04-16] MEDS: ALBUTEROL SO4 2.5/IPRATROPIUM 0.5 INH SOL 3 ML VIAL.NEB. NEB SCH ×3 (06:45→18:10)
[2017-04-16 07:40] LABS: ANION GAP 9 (8-16); CALCIUM 8.7 mg/dL (8.5-10.1); CO2 28 mmol/L (21-32); CREATININE 2.6 mg/dL (0.55-1.02); GLUCOSE,RANDOM 117 mg/dL (74-106); MAGNESIUM 2.9 mg/dL (1.8-2.4); PHOSPHOROUS 4.5 mg/dL (2.5-4.9)
[2017-04-16] MEDS ORDERED: PT OWN MED DRAWER 7, Y5N ONE ×3 (09:24→14:06)
[2017-04-16] MEDS: CARVEDILOL 3.125 MG TABLET (FP) PO SCH (09:49)
[2017-04-16] MEDS: predniSONE 5 MG TABLET (UD) PO SCH (09:49)
[2017-04-16] MEDS: ASPIRIN 81 MG CHEWABLE TABLETS PO SCH (09:49)
[2017-04-16] MEDS: DOCUSATE SODIUM 100 MG CAPSULE (FP) PO SCH (09:49)
[2017-04-16] MEDS: ISOSORBIDE MONONITRATE 30 MG TAB.SR.24H (FP) PO SCH (09:50)
[2017-04-16] MEDS: HEPARIN NA (PORCINE) 5,000 UNITS/ML 1ML VIAL SQ SCH (09:50)
[2017-04-16] MEDS: amLODIPine BESYLATE 10 MG TABLET (FP) PO SCH (09:50)
[2017-04-16] MEDS: FUROSEMIDE 40 MG TABLET (FP) PO SCH (09:50)
[2017-04-16] MEDS: FLUTICASONE/SALMETEROL 100 MCG/50 MCG DISKUS IH SCH (09:51)
[2017-04-16] MEDS: CEFTRIAXONE 100 ML IVPB SCH (10:43)
[2017-04-16] MEDS: POLYETHYLENE GLYCOL 3350 119 GM BTL PO SCH ×2 (10:43→11:29)
[2017-04-16] MEDS ORDERED: LACTULOSE 20 GM/30 ML UDC (FOR ORAL USE ONLY) PO ONE (11:00)
--- NOTE | 2017-04-16 11:05 | PN ---
Progress Note (short form) - Note Progress Note: Renal Follow up for CKD Pt seen and examined at the bedside feels constipated has mild dyspnea Vital Signs Temperature 97.7 F 04/16/17 09:32 Pulse Rate 72 04/16/17 09:32 Respiratory Rate 24 04/16/17 09:32 Blood Pressure 134/68 04/16/17 09:32 O2 Sat by Pulse Oximetry (%) 96 04/15/17 21:00 Intake & Output 04/13/17 04/14/17 04/15/17 04/16/17 23:59 23:59 23:59 23:59 Intake Total 750 1380 1480 200 Balance 750 1380 1480 200 Weight 291 lb 6 oz 292 lb 2 oz Gen: NAD CVS: RRR, No M/R Lungs: Dec BS at lung bases Abd: soft, Obese, NT/ND ext: trace to 1+ edema in LE, + warmth, no erythema CBC, BMP 04/15/17 06:28 04/16/17 05:35 Laboratory Tests 04/16/17 05:35 Calcium 8.7 Phosphorus 4.5 D Magnesium 2.9 H Current Medications Acetaminophen (Tylenol -) 650 mg PO Q6H PRN PRN Reason: PAIN OR FEVER Last Admin: 04/10/17 00:50 Dose: 650 mg Albuterol/Ipratropium (Duoneb -) 1 amp NEB QIDR [facility] Last Admin: 04/16/17 06:45 Dose: 1 amp Amlodipine Besylate (Norvasc -) 10 mg PO DAILY [facility] Last Admin: 04/16/17 09:50 Dose: 10 mg Aspirin (Asa -) 81 mg PO DAILY [facility] Last Admin: 04/16/17 09:49 Dose: 81 mg Atorvastatin Calcium (Lipitor -) 40 mg PO HS [facility] Last Admin: 04/15/17 22:12 Dose: 40 mg Carvedilol (Coreg -) 3.125 mg PO BID [facility] Last Admin: 04/16/17 09:49 Dose: 3.125 mg Docusate Sodium (Colace -) 100 mg PO DAILY [facility] Last Admin: 04/16/17 09:49 Dose: 100 mg Furosemide (Lasix -) 40 mg PO DAILY [facility] Last Admin: 04/16/17 09:50 Dose: 40 mg Heparin Sodium (Porcine) (Heparin -) 5,000 unit SQ BID [facility] Last Admin: 04/16/17 09:50 Dose: 5,000 unit Ceftriaxone Sodium (Rocephin 2gm Ivpb (Pre-Docked)) 100 mls @ 200 mls/hr IVPB DAILY [facility] Last Admin: 04/16/17 10:43 Dose: 200 mls/hr Clindamycin Phosphate (Cleocin 300 Mg Premix Ivpb) 50 mls @ 100 mls/hr IVPB Q8H -IV [facility] Last Admin: 04/16/17 09:51 Dose: 100 mls/hr Insulin Aspart (Novolog Vial Sliding Scale -) 1 vial SQ ACHS [facility] PRN Reason: Protocol Last Admin: 04/16/17 06:22 Dose: 2 units Insulin Detemir (Levemir Vial) 25 units SQ HS [facility] Last Admin: 04/15/17 22:13 Dose: 25 units Isosorbide Mononitrate (Imdur -) 30 mg PO DAILY [facility] Last Admin: 04/16/17 09:50 Dose: 30 mg Levothyroxine Sodium (Synthroid -) 88 mcg PO AM [facility] Last Admin: 04/16/17 06:23 Dose: 88 mcg Mineral Oil (Fleet Mineral Oil Rectal Enema -) 133 ml [place] NOW ONE Stop: 04/16/17 11:04 Montelukast Sodium (Singulair -) 10 mg PO HS [facility] Last Admin: 04/15/17 22:12 Dose: 10 mg Nystatin (Mycostatin Cream -) 1 applic TP QID [facility] Last Admin: 04/15/17 22:13 Dose: 1 applic Polyethylene Glycol (Miralax (For Daily Use) -) 17 gm PO BID [facility] Last Admin: 04/16/17 10:43 Dose: 17 gm Prednisone (Deltasone -) 15 mg PO DAILY [facility] Last Admin: 04/16/17 09:49 Dose: 15 mg Fluticasone/Salmeterol (Advair 100mcg/50mcg -) 1 puff IH BID [facility] Last Admin: 04/16/17 09:51 Dose: 1 puff 76 year old woman with PMhx of CKD Stage 4, Hypertension, DM, CVA who presented with complaints of fever and flank pain and admitted for SIRS/UTI with BUN/Cr of 68/2.9 #CKD stage 4 with subnephrotic proteinuria Etiology of CKD likely related to diabetic + hypertensive kidney disease Renal function remains stale #Leukocytosis/Fever/Strep Bacteremia/SIRS VERONICA negative ID rec thigh US to r/o collection on IV Ceftriaxone currently and ID recs oral abx #Constipation will give mineral oil enema avoid phosphate based enemas in pts with CKD Thank you Terrance Zamorano DO Problem List - Problems (1) CKD (chronic kidney disease) Code(s): N18.9 - CHRONIC KIDNEY DISEASE, UNSPECIFIED (2) Sepsis Code(s): A41.9 - SEPSIS, UNSPECIFIED ORGANISM Qualifiers: Sepsis type: Escherichia coli Qualified Code(s): A41.51 - Sepsis due to Escherichia coli [E. coli] (3) UTI (urinary tract infection) Code(s): N39.0 - URINARY TRACT INFECTION, SITE NOT SPECIFIED Qualifiers: Urinary tract infection type: acute cystitis Hematuria presence: without hematuria Qualified Code(s): N30.00 - Acute cystitis without hematuria (4) Anemia Code(s): D64.9 - ANEMIA, UNSPECIFIED Qualifiers: Iron deficiency anemia type: chronic blood loss (5) Diabetes Code(s): E11.9 - TYPE 2 DIABETES MELLITUS WITHOUT COMPLICATIONS (6) Elevated BUN Code(s): R79.9 - ABNORMAL FINDING OF BLOOD CHEMISTRY, UNSPECIFIED (7) Elevated serum creatinine Code(s): R79.89 - OTHER SPECIFIED ABNORMAL FINDINGS OF BLOOD CHEMISTRY (8) HTN (hypertension) Code(s): I10 - ESSENTIAL (PRIMARY) HYPERTENSION (9) CVA (cerebral vascular accident) Code(s): I63.9 - CEREBRAL INFARCTION, UNSPECIFIED (10) Proteinuria Code(s): R80.9 - PROTEINURIA, UNSPECIFIED (11) Leukocytosis Code(s): D72.829 - ELEVATED WHITE BLOOD CELL COUNT, UNSPECIFIED
[2017-04-16] MEDS ORDERED: MINERAL OIL ENEMA 133 ML ENEMA PR ONE (11:15)
[2017-04-16] MEDS ORDERED: INSULIN (NOVOLOG) ASPART 100 UNITS/ML 10ML VIAL ONE ×2 (11:53→17:43)
[2017-04-16] MEDS: NYSTATIN 100,000 UNIT/GM TOPICAL CREAM 15 GM TUBE TP SCH ×2 (12:01→15:56)
[2017-04-16 13:31] VITALS: BP 133/80; PULSE 68; TEMP 98.4
--- NOTE | 2017-04-16 14:07 | DS ---
Physical Exam: SUBJECTIVE: Patient seen and examined at bedside. No complaints at this time. Pt looks much improved. OBJECTIVE: Vital Signs Period Temp Pulse Resp BP Sys/Mike Pulse Ox Last 24 Hr 97.7 F-98.7 F 66-75 19-24 127-155/59-82 96-96 PHYSICAL EXAM GENERAL: The patient is awake, alert, and fully oriented, in no acute distress. HEAD: Normal with no signs of trauma. EYES: sclera anicteric, conjunctiva clear. ENT: oropharynx clear without exudates, moist mucous membranes. NECK: Trachea midline, full range of motion, supple. LUNGS: Breath sounds equal, clear to auscultation bilaterally, no wheezes, no crackles, no accessory muscle use. HEART: distant heart sounds Regular rate and rhythm, normal S1, S2 without murmur, rub or gallop. ABDOMEN: obsese Soft, nontender, nondistended, normoactive bowel sounds, no guarding, no rebound, no hepatosplenomegaly, no masses. EXTREMITIES: 2+ pulses, warm, well-perfused, edema. NEUROLOGICAL: Cranial nerves II through XII grossly intact. Normal speech, gait not observed. PSYCH: Normal mood, normal affect. SKIN: Warm, dry, normal turgor, no rashes or lesions noted. LABS Laboratory Results - last 24 hr 04/15/17 04/15/17 04/15/17 14:30 17:07 22:07 Sodium Potassium Chloride Carbon Dioxide Anion Gap BUN Creatinine POC Glucometer 197 250 Random Glucose Calcium Phosphorus Magnesium Urine Color Straw Urine Appearance Cloudy Urine pH 5.0 D Ur Specific [place] 1.010 Urine Protein Negative Urine Glucose (UA) Negative Urine Ketones Negative Urine Blood 1+ H Urine Nitrite Negative Urine Bilirubin Negative Urine Urobilinogen Negative Ur Leukocyte Esterase Negative Urine RBC 45 Urine WBC 2 Ur Epithelial Cells Rare Urine Bacteria Rare Urine Mucus Rare 04/16/17 04/16/17 04/16/17 05:35 05:39 11:55 Sodium 137 Potassium 4.7 Chloride 100 Carbon Dioxide 28 Anion Gap 9 BUN 69 H Creatinine 2.6 H POC Glucometer 168 146 Random Glucose 117 H D Calcium 8.7 Phosphorus 4.5 D Magnesium 2.9 H Urine Color Urine Appearance Urine pH Ur Specific [place] Urine Protein Urine Glucose (UA) Urine Ketones Urine Blood Urine Nitrite Urine Bilirubin Urine Urobilinogen Ur Leukocyte Esterase Urine RBC Urine WBC Ur Epithelial Cells Urine Bacteria Urine Mucus HOSPITAL COURSE: Date of Admission:04/05/17 Date of Discharge: 04/16/17 This is a 76 y/o F with PMH obesity, cva (with residual right sided weakness), asthma, ckd, cad (s/p cardiac cath), DM, HTN, thyroid disease, GI bleed with anemia (s/p transfusion in the past) who presented to the ED with left abdominal and flank pain. Pt was admitted for sepsis and pyelonephritis. Urine culture revealed E. coli, whereas blood cultures grew gram pos beta hemolitic organisms. It was concluded that the patient had coincident pyelonephritis and gram pos sepsis. During her stay the pt was found to have a cellulitic patch on her right thigh, which was identified as the source of her bacteremia. Pt was treated with 6 days of clindamycin and 4 days of ceftriaxone. Her cellulitis has resolved, clinically. She had a TTE, a barium swallow, and a VERONICA, which did not reveal any vegetations. During her stay, the patient's diabetes was managed with insulin sliding scale, and she was found to have an HbA1c of 7.6%. Her HTN was treated with Amlodipine. Her CKD was stable. The patient's CAD was treated with Lipitor, Imdur, and ASA. Her asthma and COPD were treated with Singulair, Advair, and albuterol nebs. She received synthroid. She received colace and miralax for constipation. She also needed Trazodone for help sleeping. Prior to discharge, the patient was seen by PT. They recommended that she go to a rehab facility. The patient adamantly refused, stating she wanted to go home where she had people available to help her. She is at her baseline from when she came in. The patient is stable for discharge. Minutes to complete discharge: 45 Discharge Summary Reason For Visit: UTI CKD SEPSIS Current Active Problems Leukocytosis (Acute) Sepsis (Acute) UTI (urinary tract infection) (Acute) CKD (chronic kidney disease) (Chronic) CVA (cerebral vascular accident) (Chronic) Proteinuria (Chronic) Condition: Good - Instructions Diet, Activity, Other Instructions: You were admitted to the hospital for sepsis and a kidney infection. You received antibiotics and other treatments. You had several imaging studies done , which helped in your diagnosis and treatment. You are being discharged with: -Advair and Augmentin (an antibiotic) You have appointments with: Dr. Holt, Dr. Zamorano, Dr. Hernandez It is very important that you take your medications as directed and follow up with your out patient doctor. If you develop new symptoms or your symptoms get worse, please come to the emergency department. Referrals: Jose Ramon Holt MD [Primary Care Provider] - 1 Week Jose Ramon Hernandez MD [Staff Physician] - 1 Week Terrance Zamorano MD [Staff Physician] - 1 Week Disposition: VNS/HOME HEALTH CARE - Home Medications Comprehensive Discharge Medication List: Ambulatory Orders Atorvastatin Ca [Lipitor] 40 mg PO HS #7 tablet 08/05/12 Amlodipine Besylate [Norvasc -] 10 mg PO DAILY 03/02/16 Docusate Sodium [Colace -] 100 mg PO DAILY 08/09/16 Insulin Aspart [Novolog Flexpen] 100 unit SQ ASDIR 08/09/16 Insulin (Levemir) [Levemir Vial] 25 units SQ HS ml 08/27/16 Isosorbide Mononitrate [Imdur -] 30 mg PO DAILY tab.sr.24h 08/27/16 Levothyroxine [Synthroid -] 88 mcg PO AM tablet 08/27/16 Aspirin [ASA -] 81 mg PO DAILY 04/05/17 Montelukast Na [Singulair -] 10 mg PO DAILY 04/06/17 Amlodipine Besylate [Norvasc -] 5 mg PO DAILY 04/08/17 Atorvastatin Ca [Lipitor] 40 mg PO HS 04/08/17 Carvedilol [Coreg -] 25 mg PO BID 04/08/17 Duloxetine HCl [Cymbalta] 30 mg PO DAILY 04/08/17 Furosemide [Lasix] 40 mg PO DAILY 04/08/17 This patient is new to me today: No Emergency Visit: No Critical Care patient: No - Discharge Referral Referred to [facility] Med P.C.: No
--- NOTE | 2017-04-16 14:51 | PN ---
Progress Note, Physician History of Present Illness: patient stable no new issues weak - Current Medication List Current Medications: Active Medications Acetaminophen (Tylenol -) 650 mg PO Q6H PRN PRN Reason: PAIN OR FEVER Last Admin: 04/10/17 00:50 Dose: 650 mg Albuterol/Ipratropium (Duoneb -) 1 amp NEB QIDR [facility] Last Admin: 04/16/17 11:31 Dose: 1 amp Amlodipine Besylate (Norvasc -) 10 mg PO DAILY [facility] Last Admin: 04/16/17 09:50 Dose: 10 mg Aspirin (Asa -) 81 mg PO DAILY [facility] Last Admin: 04/16/17 09:49 Dose: 81 mg Atorvastatin Calcium (Lipitor -) 40 mg PO HS [facility] Last Admin: 04/15/17 22:12 Dose: 40 mg Carvedilol (Coreg -) 3.125 mg PO BID [facility] Last Admin: 04/16/17 09:49 Dose: 3.125 mg Docusate Sodium (Colace -) 100 mg PO DAILY [facility] Last Admin: 04/16/17 09:49 Dose: 100 mg Furosemide (Lasix -) 40 mg PO DAILY [facility] Last Admin: 04/16/17 09:50 Dose: 40 mg Heparin Sodium (Porcine) (Heparin -) 5,000 unit SQ BID [facility] Last Admin: 04/16/17 09:50 Dose: 5,000 unit Ceftriaxone Sodium (Rocephin 2gm Ivpb (Pre-Docked)) 100 mls @ 200 mls/hr IVPB DAILY [facility] Last Admin: 04/16/17 10:43 Dose: 200 mls/hr Clindamycin Phosphate (Cleocin 300 Mg Premix Ivpb) 50 mls @ 100 mls/hr IVPB Q8H -IV [facility] Last Admin: 04/16/17 09:51 Dose: 100 mls/hr Insulin Aspart (Novolog Vial Sliding Scale -) 1 vial SQ ACHS [facility] PRN Reason: Protocol Last Admin: 04/16/17 11:57 Dose: Not Given Insulin Detemir (Levemir Vial) 25 units SQ HS [facility] Last Admin: 04/15/17 22:13 Dose: 25 units Isosorbide Mononitrate (Imdur -) 30 mg PO DAILY [facility] Last Admin: 04/16/17 09:50 Dose: 30 mg Levothyroxine Sodium (Synthroid -) 88 mcg PO AM [facility] Last Admin: 04/16/17 06:23 Dose: 88 mcg Montelukast Sodium (Singulair -) 10 mg PO HS [facility] Last Admin: 04/15/17 22:12 Dose: 10 mg Nystatin (Mycostatin Cream -) 1 applic TP QID [facility] Last Admin: 04/16/17 12:01 Dose: 1 applic Polyethylene Glycol (Miralax (For Daily Use) -) 17 gm PO BID [facility] Last Admin: 04/16/17 11:29 Dose: Not Given Prednisone (Deltasone -) 15 mg PO DAILY [facility] Last Admin: 04/16/17 09:49 Dose: 15 mg Fluticasone/Salmeterol (Advair 100mcg/50mcg -) 1 puff IH BID [facility] Last Admin: 04/16/17 09:51 Dose: 1 puff - Objective Vital Signs: Vital Signs Temperature 98.4 F 04/16/17 13:29 Pulse Rate 68 04/16/17 13:29 Respiratory Rate 19 04/16/17 13:29 Blood Pressure 133/80 04/16/17 13:29 O2 Sat by Pulse Oximetry (%) 96 04/16/17 09:45 Constitutional: Yes: No Distress, Calm Cardiovascular: Yes: Regular Rate and Rhythm Respiratory: Yes: Regular, CTA Bilaterally Gastrointestinal: Yes: Normal Bowel Sounds, Soft Musculoskeletal: Yes: Other Extremities: Yes: Other Neurological: Yes: Alert, Oriented Psychiatric: Yes: Alert, Oriented Labs: CBC, BMP 04/15/17 06:28 04/16/17 05:35 INR, PTT INR 1.27 (0.82-1.09) H 04/05/17 12:20 Assessment/Plan patient evaluated patient is now bacteremic i doubt that this coming from the kidneys i am worried about other issues Problem List - Problems (1) CKD (chronic kidney disease) Code(s): N18.9 - CHRONIC KIDNEY DISEASE, UNSPECIFIED (2) Sepsis Code(s): A41.9 - SEPSIS, UNSPECIFIED ORGANISM Qualifiers: Sepsis type: Escherichia coli Qualified Code(s): A41.51 - Sepsis due to Escherichia coli [E. coli] (3) UTI (urinary tract infection) Code(s): N39.0 - URINARY TRACT INFECTION, SITE NOT SPECIFIED Qualifiers: Urinary tract infection type: acute cystitis Hematuria presence: without hematuria Qualified Code(s): N30.00 - Acute cystitis without hematuria (4) Anemia Code(s): D64.9 - ANEMIA, UNSPECIFIED Qualifiers: Iron deficiency anemia type: chronic blood loss (5) Diabetes Code(s): E11.9 - TYPE 2 DIABETES MELLITUS WITHOUT COMPLICATIONS (6) Elevated BUN Code(s): R79.9 - ABNORMAL FINDING OF BLOOD CHEMISTRY, UNSPECIFIED (7) Elevated serum creatinine Code(s): R79.89 - OTHER SPECIFIED ABNORMAL FINDINGS OF BLOOD CHEMISTRY (8) HTN (hypertension) Code(s): I10 - ESSENTIAL (PRIMARY) HYPERTENSION (9) CVA (cerebral vascular accident) Code(s): I63.9 - CEREBRAL INFARCTION, UNSPECIFIED (10) Proteinuria Code(s): R80.9 - PROTEINURIA, UNSPECIFIED (11) Leukocytosis Code(s): D72.829 - ELEVATED WHITE BLOOD CELL COUNT, UNSPECIFIED plan continue current mgmt switched to oral abx physio rest as per primary
--- NOTE | 2017-04-16 15:06 | PN ---
Teaching Attending Note Name of Resident: Mark Garcia ATTENDING PHYSICIAN STATEMENT I saw and evaluated the patient. I reviewed the resident's note and discussed the case with the resident. I agree with the resident's findings and plan as documented. SUBJECTIVE: Patient is comfortable wants to go home. Refusing to go to rehab. OBJECTIVE: Vital Signs Temperature 98.4 F 04/16/17 13:29 Pulse Rate 68 04/16/17 13:29 Respiratory Rate 19 04/16/17 13:29 Blood Pressure 133/80 04/16/17 13:29 O2 Sat by Pulse Oximetry (%) 96 04/16/17 09:45 CBCD WBC 13.3 K/mm3 (4.0-10.0) H 04/15/17 06:28 RBC 3.08 M/mm3 (3.60-5.2) L 04/15/17 06:28 Hgb 8.4 GM/dL (10.7-15.3) L 04/15/17 06:28 Hct 26.2 % (32.4-45.2) L 04/15/17 06:28 MCV 85.0 fl (80-96) 04/15/17 06:28 MCHC 32.1 g/dl (32.0-36.0) 04/15/17 06:28 RDW 15.7 % (11.6-15.6) H 04/15/17 06:28 Plt Count 251 K/MM3 (134-434) 04/15/17 06:28 MPV 8.3 fl (7.5-11.1) 04/15/17 06:28 CMP Sodium 137 mmol/L (136-145) 04/16/17 05:35 Potassium 4.7 mmol/L (3.5-5.1) 04/16/17 05:35 Chloride 100 mmol/L (98-107) 04/16/17 05:35 Carbon Dioxide 28 mmol/L (21-32) 04/16/17 05:35 Anion Gap 9 (8-16) 04/16/17 05:35 BUN 69 mg/dL (7-18) H 04/16/17 05:35 Creatinine 2.6 mg/dL (0.55-1.02) H 04/16/17 05:35 Creat Clearance w eGFR 17.13 (>60) 04/15/17 06:28 Random Glucose 117 mg/dL (74-106) H D 04/16/17 05:35 Calcium 8.7 mg/dL (8.5-10.1) 04/16/17 05:35 Total Bilirubin 0.3 mg/dL (0.2-1.0) D 04/15/17 06:28 AST 12 U/L (15-37) L D 04/15/17 06:28 ALT 16 U/L (12-78) D 04/15/17 06:28 Alkaline Phosphatase 77 U/L (45-117) 04/15/17 06:28 Total Protein 6.4 g/dl (6.4-8.2) 04/15/17 06:28 Albumin 2.9 g/dl (3.4-5.0) L 04/15/17 06:28 CARDIAC ENZYMES Creatine Kinase 123 IU/L (26-192) 04/05/17 19:50 Troponin I < 0.02 ng/ml (0.00-0.05) 04/05/17 19:50 Current Medications Generic Name Dose Route Start Last Admin Trade Name Freq PRN Reason Stop Dose Admin Acetaminophen 650 mg 04/05/17 17:56 04/10/17 00:50 Tylenol - PO 650 mg Q6H PRN Administration PAIN OR FEVER Albuterol/Ipratropium 1 amp 04/06/17 12:00 04/16/17 11:31 Duoneb - NEB 1 amp QIDR [facility] Administration Amlodipine Besylate 10 mg 04/06/17 10:00 04/16/17 09:50 Norvasc - PO 10 mg DAILY [facility] Administration Amoxicillin/Clavulanate Potassium 1 tab 04/16/17 17:30 Augmentin - 500mg Tablet PO BID@0800,1730 [facility] Aspirin 81 mg 04/06/17 10:00 04/16/17 09:49 Asa - PO 81 mg DAILY [facility] Administration Atorvastatin Calcium 40 mg 04/05/17 22:00 04/15/17 22:12 Lipitor - PO 40 mg HS [facility] Administration Carvedilol 3.125 mg 04/10/17 10:00 04/16/17 09:49 Coreg - PO 3.125 mg BID [facility] Administration Docusate Sodium 100 mg 04/06/17 10:00 04/16/17 09:49 Colace - PO 100 mg DAILY [facility] Administration Furosemide 40 mg 04/10/17 11:45 04/16/17 09:50 Lasix - PO 40 mg DAILY [facility] Administration Heparin Sodium (Porcine) 5,000 unit 04/15/17 22:00 04/16/17 09:50 Heparin - SQ 5,000 unit BID [facility] Administration Insulin Aspart 1 vial 04/05/17 22:00 04/16/17 11:57 Novolog Vial Sliding Scale - SQ Not Given ACHS [facility] Protocol Insulin Detemir 25 units 04/05/17 22:00 04/15/17 22:13 Levemir Vial SQ 25 units HS [facility] Administration Isosorbide Mononitrate 30 mg 04/06/17 10:00 04/16/17 09:50 Imdur - PO 30 mg DAILY [facility] Administration Levothyroxine Sodium 88 mcg 04/06/17 07:00 04/16/17 06:23 Synthroid - PO 88 mcg AM [facility] Administration Montelukast Sodium 10 mg 04/06/17 22:00 04/15/17 22:12 Singulair - PO 10 mg HS [facility] Administration Nystatin 1 applic 04/06/17 10:00 04/16/17 12:01 Mycostatin Cream - TP 1 applic QID [facility] Administration Polyethylene Glycol 17 gm 04/15/17 11:45 04/16/17 11:29 Miralax (For Daily Use) - PO Not Given BID [facility] Prednisone 15 mg 04/13/17 16:16 04/16/17 09:49 Deltasone - PO 15 mg DAILY [facility] Administration Fluticasone/Salmeterol 1 puff 04/09/17 22:00 04/16/17 09:51 Advair 100mcg/50mcg - IH 1 puff BID [facility] Administration Home Medications Medication Instructions Recorded Atorvastatin Ca [Lipitor] 40 mg PO HS #7 tablet 08/05/12 Amlodipine Besylate [Norvasc -] 10 mg PO DAILY 03/02/16 Docusate Sodium [Colace -] 100 mg PO DAILY 08/09/16 Insulin Aspart [Novolog Flexpen] 100 unit SQ ASDIR 08/09/16 Insulin (Levemir) [Levemir Vial] 25 units SQ HS ml 08/27/16 Isosorbide Mononitrate [Imdur -] 30 mg PO DAILY tab.sr.24h 08/27/16 Levothyroxine [Synthroid -] 88 mcg PO AM tablet 08/27/16 Aspirin [ASA -] 81 mg PO DAILY 04/05/17 Montelukast Na [Singulair -] 10 mg PO DAILY 04/06/17 Atorvastatin Ca [Lipitor] 40 mg PO HS 04/08/17 Duloxetine HCl [Cymbalta] 30 mg PO DAILY 04/08/17 Furosemide [Lasix] 40 mg PO DAILY 04/08/17 Amox-Tr/K Cl [Augmentin - 500Mg 1 tab PO BID #10 tablet 04/16/17 Tablet] Carvedilol [Coreg -] 3.125 mg PO ONCE #15 tablet 04/16/17 Docusate Sodium [Colace -] 100 mg PO DAILY #10 capsule 04/16/17 Prednisone [Deltasone -] See Taper PO ASDIR #9 tab 04/16/17 Salmeterol/Fluticasone [Advair 1 inh IH BID #1 inh 04/16/17 100Mcg/50Mcg -] PE: per resident's note 04/06/17 18:50 Blood - Peripheral Venous Blood Culture - Final NO GROWTH AFTER 5 DAYS INCUBATION 04/06/17 18:50 Blood - Peripheral Venous Blood Culture - Final NO GROWTH AFTER 5 DAYS INCUBATION 04/05/17 21:09 Urine - Urine Clean Catch Urine Culture - Final Escherichia Coli 04/05/17 12:18 Blood - Peripheral Venous Blood Culture - Final Beta Hem Streptococcus Group G 04/05/17 12:18 Blood - Peripheral Venous Blood Culture - Final Beta Hem Streptococcus Group G ASSESSMENT AND PLAN: 76 yo with h/o HTN, HL CVA (Rt hemiparesis), CKD, diastolic chf, IDDM, ROSITA, anemia, COPD, hypothyroid, obesity admitted with uti and bacteremia. # Strep bacteremia- likely due to RLE cellulitis. VERONICA negative for vegetations. repeat BCx negative. s/p Clinda as per ID; to send her home with 5 more days of Augmentin . #Acute Leukocytosis improving but patient is on Steroids. No new CBC today, being discharged on tapered dose of oral Prednisone. # UTI- E.coli.with possible pylenophritis. will repeat UA to evaluate if cleared since having symptoms. on Ceftriaxone day 10. # CKD- at baseline. nephrology on board. # Acute COPD exacerbation- clinically improved. cont steroid taper will discharge patient home since wants to go home, As per case management coordinator and the team, this is her baseline, mostly in bed. Will send her home with VNS.
[2017-04-16] MEDS ORDERED: AMOX TR/POT CLAV 500MG/125MG TABLETS (FP) PO SCH (17:30)
== END 2017-04-16 18:31 | disposition home health service (06) | DRG 872 ==
LOC: JER 11:45 → JERBED 16:33 → J5S 19:10
PROVIDERS: ADMIT Internal Medicine; ATTEND Internal Medicine
PROC: B246ZZ4 Ultrasonography of Right and Left Heart, Transesophageal (ICD-10-PCS; principal; 2017-04-13 14:00)
DX: A41.89 Other specified sepsis (principal); L03.115 Cellulitis of right lower limb; N12 Tubulo-interstitial nephritis, not specified as acute or chronic; Z68.43 Body mass index [BMI] 50.0-59.9, adult; I69.351 Hemiplegia and hemiparesis following cerebral infarction affecting right dominant side; N17.9 Acute kidney failure, unspecified; I13.0 Hypertensive heart and chronic kidney disease with heart failure and stage 1 through stage 4 chronic kidney disease, or unspecified chronic kidney disease; N18.4 Chronic kidney disease, stage 4 (severe); I50.30 Unspecified diastolic (congestive) heart failure; J44.1 Chronic obstructive pulmonary disease with (acute) exacerbation; B96.20 Unspecified Escherichia coli [E. coli] as the cause of diseases classified elsewhere; I25.10 Atherosclerotic heart disease of native coronary artery without angina pectoris; Z98.61 Coronary angioplasty status; Z87.891 Personal history of nicotine dependence; G47.30 Sleep apnea, unspecified; E66.01 Morbid (severe) obesity due to excess calories; Z71.3 Dietary counseling and surveillance; I73.9 Peripheral vascular disease, unspecified; E11.22 Type 2 diabetes mellitus with diabetic chronic kidney disease; Z79.4 Long term (current) use of insulin; E03.9 Hypothyroidism, unspecified; K59.00 Constipation, unspecified; D72.829 Elevated white blood cell count, unspecified; D63.1 Anemia in chronic kidney disease; G47.00 Insomnia, unspecified
CPT/HCPCS: 36415; 71010-TC; 74220-TC; 76882; 80048; 80053; 81003; 81015; 82272; 82550; 82570; 82803; 83605; 83735; 83880; 84100; 84156; 84484; 85025; 85610; 85730; 86850; 86870; 86900; 86901; 86902; 87040; 87086; 87186; 93005; 93010; 93306-TC; 93312; 93325; 93971-TC; 94640; 94660; 97116-GP; 97161-GP; 99284-25; J1644

== ENCOUNTER 2018-06-01 22:37 | Inpatient (IN) | payer OTHER ==
[2018-06-01 22:57] VITALS: BMI 33.6
--- NOTE | 2018-06-01 23:12 | PDOC ---
History of Present Illness - General History Source: Patient Exam Limitations: No Limitations - History of Present Illness Initial Comments: 06/01/18 23:34 The patient is a 77 year old female, with a significant past medical history of BiPAP at night, renal failure, diabetes, anemia, hypertension, COPD, CVA, asthma , and obesity, who presents to the emergency department with shortness of breath BIBA from home. The patient denies chest pain, headache and dizziness. The patient denies fever , chills, nausea, vomit, diarrhea and constipation. The patient denies dysuria, frequency, urgency and hematuria. Allergies: as per nursing notes <Odette Pinedo - Last Filed: 06/01/18 23:57> <Kandy Gee - Last Filed: 06/02/18 03:02> - General Chief Complaint: Shortness of Breath Stated Complaint: SOB Time Seen by Provider: 06/01/18 23:03 Past History <Odette Pinedo - Last Filed: 06/01/18 23:57> - Past Medical History Anemia: Yes Asthma: Yes Cardiac Disorders: Yes (CARDIAC CATH, HCVD) CVA: Yes (R hemiparesis) COPD: Yes Diabetes: Yes HTN: Yes Thyroid Disease: Yes - Surgical History Cardiac Surgery: Yes (CARDIAC CATH) - Immunization History Immunization Up to Date: Yes - Suicide/Smoking/Psychosocial Hx Smoking Status: Yes Smoking History: Never smoked Have you smoked in the past 12 months: No Number of Cigarettes Smoked Daily: 0 If you are a former smoker, when did you quit?: 2000 Cigars Per Day: 0 Information on smoking cessation initiated: No Hx Alcohol Use: No Drug/Substance Use Hx: No Substance Use Type: None Hx Substance Use Treatment: No <Kandy Gee - Last Filed: 06/02/18 03:02> - Past Medical History Allergies/Adverse Reactions: Allergies Allergy/AdvReac Type Severity Reaction Status Date / Time codeine [Codeine] Allergy Severe Hives Verified 06/01/18 22:54 Iodine and Iodide Containing Allergy Verified 06/01/18 22:54 Produc nuts Allergy Mild Uncoded 04/05/17 12:15 Home Medications: Ambulatory Orders Atorvastatin Ca [Lipitor] 40 mg PO HS #7 tablet 08/05/12 Amlodipine Besylate [Norvasc -] 10 mg PO DAILY 03/02/16 Docusate Sodium [Colace -] 100 mg PO DAILY 08/09/16 Insulin Aspart [Novolog Flexpen] 100 unit SQ ASDIR 08/09/16 Insulin (Levemir) [Levemir Vial] 25 units SQ HS ml 08/27/16 Isosorbide Mononitrate [Imdur -] 30 mg PO DAILY tab.sr.24h 08/27/16 Levothyroxine [Synthroid -] 88 mcg PO AM tablet 08/27/16 Aspirin [ASA -] 81 mg PO DAILY 04/05/17 Montelukast Na [Singulair -] 10 mg PO DAILY 04/06/17 Atorvastatin Ca [Lipitor] 40 mg PO HS 04/08/17 Duloxetine HCl [Cymbalta] 30 mg PO DAILY 04/08/17 Furosemide [Lasix] 40 mg PO DAILY 04/08/17 Amox-Tr/K Cl [Augmentin - 500Mg Tablet] 1 tab PO BID #10 tablet 04/16/17 Carvedilol [Coreg -] 3.125 mg PO ONCE #15 tablet 04/16/17 Docusate Sodium [Colace -] 100 mg PO DAILY #10 capsule 04/16/17 Salmeterol/Fluticasone [Advair 100Mcg/50Mcg -] 1 inh IH BID #1 inh 04/16/17 predniSONE [Deltasone -] See Taper PO ASDIR #9 tab 04/16/17 Respiratory Specific PMHX - Complaint Specific PMHX Angina: No Pulmonary Embolus: No <Kandy Gee - Last Filed: 06/02/18 03:02> Review of Systems - Review of Systems Able to Perform ROS?: Yes Comments:: 06/01/18 23:34 CONSTITUTIONAL: Absent: fever, no chills, no fatigue EYES: Absent: visual changes ENT: Absent: ear pain, no sore throat CARDIOVASCULAR: Absent: chest pain, no palpitations RESPIRATORY: (+) SOB Absent: cough, GI: Absent: abdominal pain, no nausea, no vomiting, no constipation, no diarrhea GENITOURINARY: Absent: dysuria, no frequency, no hematuria MUSCULOSKELETAL: Absent: back pain, no arthralgia, no myalgia SKIN: Absent: rash NEURO: Absent: headache <Odette Pinedo - Last Filed: 06/01/18 23:57> *Physical Exam - Vital Signs Last Vital Signs Temp Pulse Resp BP Pulse Ox 100.0 F H 88 22 133/71 100 06/01/18 22:54 06/01/18 22:54 06/01/18 22:54 06/01/18 22:54 06/01/18 22:54 - Physical Exam Comments: 06/01/18 23:34 GENERAL: (+) Pt is in respiratory distress. Morbidly obese. HEENT: Normocephalic, atraumatic. PERRL, EOM intact. CARDIOVASCULAR: Normal S1, S2. Regular rate and rhythm. PULMONARY: (+) Diffuse expiratory wheezing, Tachypneic ABDOMEN: (+) Obese. Soft, non-distended, non-tender. EXTREMITIES: (+) Right LE nonpitting edema chronic, non ambulatory. No gross deformities. SKIN: Warm, dry. No rash NEUROLOGICAL: (+) chronic slurred speech and Right hemiparesis. No focal neurological deficits. <Odette Pinedo - Last Filed: 06/01/18 23:57> - Vital Signs Last Vital Signs Temp Pulse Resp BP Pulse Ox 100.0 F H 88 22 133/71 100 06/01/18 22:54 06/01/18 22:54 06/01/18 22:54 06/01/18 22:54 06/01/18 22:54 <Kandy Gee - Last Filed: 06/02/18 03:02> Heart Score/ECG Review - ECG Intrepretation Comment:: 06/01/18 23:57 EKG was read by Dr. Gee at 23:39 Impression: normal sinus rhythm. T wave abnormality <Odette Pinedo - Last Filed: 06/01/18 23:57> ED Treatment Course - LABORATORY CBC & Chemistry Diagram: 06/01/18 23:45 06/02/18 01:15 <Kandy Gee - Last Filed: 06/02/18 03:02> Medical Decision Making - Medical Decision Making 06/02/18 01:30 pt BIBA from home for sob with increased resp rate,pt was tachypnic ,very warm skin ,she had diffuse exp wheeizing and accessory muscle use oral temp was 100 In reviewing old records Echo 08/12 showed nl EF pt given steroids and bronchodilators, improved wheezing and she is much more comfortable placed on BIPAP with setting 09/02, rate=14 and Fio2= 40% pt's breathing has improved 06/02/18 02:52 pt has chronic renal insufficiency and her cr is usually about 2.5 imp 1-copd exacerbation 2-fever,UTI 3- chronic renal ds, cr typically about 2.5 4- diabetes 5- cva with chronic rt hemipareisis 6- CAD no signs of ischemia, neg trop , ekg nsr @ 83 bpm pt has stabilized - spoke w Dr Caldera and will admit <Kandy Gee - Last Filed: 06/02/18 03:02> *DC/Admit/Observation/Transfer - Attestations Scribe Attestion: 06/01/18 23:35 Documentation prepared by Odette Pinedo, acting as medical device assembler for Kandy Gee MD <Odette Pinedo - Last Filed: 06/01/18 23:57> - Discharge Dispostion Decision to Admit order: Yes <Kandy Gee - Last Filed: 06/02/18 03:02> Diagnosis at time of Disposition: COPD exacerbation, Hemiplegia affecting dominant side, Morbid obesity, Swelling of right lower extremity UTI (urinary tract infection) Qualifiers: Urinary tract infection type: site unspecified Hematuria presence: without hematuria Qualified Code(s): N39.0 - Urinary tract infection, site not specified CKD (chronic kidney disease) Qualifiers: Chronic kidney disease stage: unspecified stage Qualified Code(s): N18.9 - Chronic kidney disease, unspecified
[2018-06-01] MEDS ORDERED: ALBUTEROL SO4 2.5/IPRATROPIUM 0.5 INH SOL 3 ML VIAL.NEB. NEB ONE ×3 (23:14→23:29)
[2018-06-01] MEDS ORDERED: MAGNESIUM SULF 50% (8.12 MEQ/2 ML-1 GM VIAL) IVPB ONE (23:15)
[2018-06-01] MEDS ORDERED: methylPREDNISolone NA SUCC 125 MG/2 ML VIAL IVPUSH ONE (23:26)
[2018-06-01] MEDS ORDERED: ALBUTEROL SO4 0.083% IH SOL 2.5 MG/3 ML VIAL.NEB. NEB ONE ×2 (23:27→23:29)
[2018-06-01] MEDS ORDERED: methylPREDNISolone NA SUCC 125 MG/2 ML VIAL ONE (23:29)
[2018-06-01] MEDS ORDERED: MAGNESIUM SULF 50% (8.12 MEQ/2 ML-1 GM VIAL) ONE ×2 (23:29→23:37)
[2018-06-01] MEDS ORDERED: ACETAMINOPHEN 1000 MG/100 ML VIAL (NON FORMULARY) IVPB ONE (23:31)
[2018-06-02 00:05] LABS: VENOUS PC02 53.1 mmHg (38-52); VENOUS PH 7.38 (7.32-7.42)
[2018-06-02 00:06] LABS: BASO % 0.4 % (0-2.0); HEMATOCRIT 32.3 % (32.4-45.2); HEMOGLOBIN 10.6 GM/dL (10.7-15.3); LYMPH % 3.4 % (8-40); MCH 27.1 pg (25.7-33.7); MCHC 32.7 g/dl (32.0-36.0); MEAN CELL VOLUME 82.6 fl (80-96); MEAN PLT VOLUME 9.8 fl (7.5-11.1); MONO % 2.7 % (3.8-10.2); NEUT % 93.5 % (42.8-82.8); PLATELET COUNT 172 K/MM3 (134-434); RBC 3.91 M/mm3 (3.60-5.2); RDW 17.8 % (11.6-15.6); VENOUS PO2 78.7 mmHg (28-48); WHITE BLOOD COUNT 9.5 K/mm3 (4.0-10.0)
[2018-06-02] MEDS ORDERED: ACETAMINOPHEN INJECTION 100 ML IVPB ONE (00:16)
[2018-06-02] MEDS ORDERED: PIPERACILLIN/TAZOB 3.375 GM 3.375 GM in DEXTROSE 5%-WATER - 50 ML IVPB ONE (00:28)
[2018-06-02] MEDS ORDERED: VANCOMYCIN 1,000 MG in DEXTROSE 5%-WATER - 250 ML IVPB ONE (00:29)
[2018-06-02 00:33] LABS: INR 1.15 (0.83-1.09)
[2018-06-02 00:36] LABS: ACTIVATED PTT 30.8 SECONDS (25.2-36.5)
[2018-06-02 01:50] LABS: ALBUMIN 3.5 g/dl (3.4-5.0); ALK PHOS 80 U/L (45-117); ANION GAP 7 MMOL/L (8-16); BILIRUBIN,TOTAL 0.5 mg/dL (0.2-1.0); BLOOD UREA NITROGEN 78 mg/dL (7-18); CALCIUM 9.3 mg/dL (8.5-10.1); CHLORIDE 94 mmol/L (98-107); CO2 34 mmol/L (21-32); CREATININE 2.7 mg/dL (0.55-1.02); GLUCOSE,RANDOM 241 mg/dL (74-106); POTASSIUM 4.5 mmol/L (3.5-5.1); SGOT/AST 22 U/L (15-37); SGPT/ALT 17 U/L (12-78); SODIUM 135 mmol/L (136-145); TOT PROT 7.6 g/dl (6.4-8.2)
[2018-06-02] MEDS ORDERED: VANCOMYCIN 1 GRAM (PRE-DOCKED) 1,000 MG/250 ML BAG IVPB ONE (01:56)
[2018-06-02] MEDS ORDERED: PIPERACILLIN/TAZOB 3.375 GM 3.375 GM/50 ML BAG IVPB ONE (01:57)
[2018-06-02 02:39] LABS: ANISOCYTOSIS 2+; MACROCYTOSIS 0; PLATELET ESTIMATE DECREASED; TEAR DROP CELLS 1+
[2018-06-02 02:53] LABS: URINE APPEARANCE CLOUDY; URINE BILIRUBIN NEGATIVE (<2.0 mg/dL); URINE COLOR YELLOW; URINE GLUCOSE (UA) NEGATIVE (NEGATIVE); URINE KETONE NEGATIVE (NEGATIVE); URINE LEUK ESTERASE NEGATIVE (NEGATIVE); URINE NITRITE NEGATIVE (NEGATIVE); URINE UROBILINOGEN NEGATIVE mg/dL (0.2-1.0)
[2018-06-02 02:57] LABS: URINE PROTEIN 2+ (NEGATIVE)
[2018-06-02 03:00] LABS: EPI CELLS MANY /HPF (FEW); URINE BACTERIA RARE /hpf (NONE SEEN); URINE HYALINE CAST 2 /lpf; URINE MUCUS RARE
[2018-06-02 04:05] LABS: ARTERIAL BLOOD GAS PCO2 53.7 mmHg (35-45); ARTERIAL BLOOD GAS pH 7.38 (7.35-7.45)
[2018-06-02 04:06] LABS: ALLENS TEST POSITIVE; ARTERIAL BLD GAS O2 SATURATION 97.4 % (90-98.9); ARTERIAL BLOOD GAS BASE EXCESS 5.1 meq/l (-2-2); ARTERIAL BLOOD GAS PO2 95.5 mmHg (70-100); CARBOXYHEMOGLOBIN 1.8 gm% (0.5-2.0)
--- NOTE | 2018-06-02 04:13 | PN ---
Teaching Attending Note Name of Resident: Karol Solo ATTENDING PHYSICIAN STATEMENT I saw and evaluated the patient. Chart, data, imaging reviewed. I reviewed the resident's note and discussed the case with the resident. I agree with the resident's findings and plan as documented. SUBJECTIVE: 77 year old woman, with obesity, CKD, DM, anemia, HTN, COPD, asthma, CVA w/ right hemiparesis, asthma brought in to hospital with shortness of breath of unclear duration. Patient currently not a reliable historian. She was given solumedrol, nebs, placed on Bipap in ER with improvement in her resp status. VBG showed hypercapnia. FOund to have low grade fever, given vancomycin, zosyn emipircally. OBJECTIVE: Last Vital Signs Temp Pulse Resp BP Pulse Ox 100.0 F H 88 22 133/71 98 06/01/18 22:54 06/01/18 22:54 06/01/18 22:54 06/01/18 22:54 06/02/18 00:21 General- morbidly obese, nontoxic appearing Neuro , awake, alert, oriented to place heent- nc, atraumatic neck- no jvd cv - s1+, S2+ rrr chest - scant expiratory wheezing abdomen- obese, nontender, no masses appreciated, BS+ ext- right lower ext 2+ pitting edema, more edematous compared to left Foster catheter + Abnormal Lab Results 06/01/18 06/01/18 06/01/18 23:45 23:45 23:45 Hgb 10.6 L Hct 32.3 L D RDW 17.8 H Absolute Neuts (auto) 8.9 H Neutrophils % 93.5 H D Lymphocytes % 3.4 L D Lymphocytes % (Manual) 6.1 L Monocytes % 2.7 L Monocytes % (Manual) 3 L Myelocytes % (Man) 4 H Metamyelocytes 7 H INR 1.15 H ABG pCO2 at Pt Temp ABG HCO3 ABG O2 Content ABG Base Excess POC VBG pCO2 53.1 H POC VBG pO2 78.7 H D Mixed VBG HCO3 31.0 H Methemoglobin Sodium Chloride Carbon Dioxide Anion Gap BUN Creatinine Random Glucose Urine Protein Urine Blood 06/02/18 06/02/18 06/02/18 01:15 02:25 03:52 Hgb Hct RDW Absolute Neuts (auto) Neutrophils % Lymphocytes % Lymphocytes % (Manual) Monocytes % Monocytes % (Manual) Myelocytes % (Man) Metamyelocytes INR ABG pCO2 at Pt Temp 53.7 H D ABG HCO3 30.7 H ABG O2 Content 13.4 L ABG Base Excess 5.1 H POC VBG pCO2 POC VBG pO2 Mixed VBG HCO3 Methemoglobin 1.8 H Sodium 135 L Chloride 94 L Carbon Dioxide 34 H Anion Gap 7 L BUN 78 H Creatinine 2.7 H Random Glucose 241 H Urine Protein 2+ H Urine Blood 2+ H CXR reviewed ASSESSMENT AND PLAN: #77yo woman with shortness of breath and mild hypercapneic respiratory failure likely secondary to asthma/COPD exacerbation and possibly obesity hypoventilation syndrome. CLinical improvement after nebs, solumedrol, bipap. Doubt PE as pt is improved and not tachycardic. Should r/o underlying pneumonia with CT of chest. R/o CHF. Prob acutely delerious due to underlying metabolic derrangements- uremia, hypercapnia. 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
--- NOTE | 2018-06-02 04:47 | HP ---
CHIEF COMPLAINT: SOB PCP: HISTORY OF PRESENT ILLNESS: 77 y/o F with a PMHx of COPD with Bipap at night, Asthma, Obesity, CKD, CVA with Residual Right Hemiparesis, CAD (S/P Cath), HTN, DM, Anemia (S/P Multiple transfusions in the past), Thyroid disease was BIBEMS with SOB of unclear duration. Patient became very lethargic during my interview, falling asleep and waking up during questioning to the point where I was unable to properly obtain a history. Most of the history provided is from chart review. Patient was BIBEMS from Home for SOB and tachypnea. Patient had diffuse expiratory wheezing and accessory muscle use. Denies fevers, chills, chest pain, Nausea, vomiting, diarrhea, constipation, headache and dizziness. Denies dysuria, frequency, urgency and hematuria. She was given Solumederol and Bronchodilators during her ED course and was placed on Bipap (Settings Ipap 12, Epap 6, Rate 14, FiO2 40%) and her respiratory status improved. Additionally she was given Vancomycin and Zosyn. Recent Travel: Unable to obtain PAST MEDICAL HISTORY: COPD with Bipap at night Asthma Obesity CKD CVA with Residual Right Hemiparesis CAD (S/P Cath) HTN DM Anemia (S/P Multiple transfusions in the past) Thyroid disease PAST SURGICAL HISTORY: Cardiac Cath Social History: Smoking: Quit in 1999 Alcohol: Denies Drugs: Denies Family History: Unable to obtain Allergies codeine [Codeine] Allergy (Severe, Verified 06/01/18 22:54) Hives Iodine and Iodide Containing Produc Allergy (Verified 06/01/18 22:54) nuts Allergy (Mild, Uncoded 04/05/17 12:15) HOME MEDICATIONS: Home Medications Medication Instructions Recorded Aspirin [ASA -] 81 mg PO DAILY 06/02/18 Atorvastatin Ca [Lipitor] 40 mg PO HS 06/02/18 Furosemide [Lasix] 80 mg PO BID 06/02/18 Insulin (Levemir) [Levemir Vial] 32 unit SQ DAILY 06/02/18 Levothyroxine [Synthroid -] 88 mcg PO DAILY 06/02/18 Montelukast Sodium [Singulair] 10 mg PO DAILY 06/02/18 REVIEW OF SYSTEMS Unable to obtain due to patients clinical status PHYSICAL EXAMINATION Vital Signs - 24 hr 06/01/18 06/02/18 22:54 00:21 Temperature 100.0 F H Pulse Rate 88 Respiratory 22 Rate Blood Pressure 133/71 O2 Sat by Pulse 100 98 Oximetry (%) GENERAL: Lethargic On Bipap. EYES: PERRL NECK: No JVD LUNGS: Wheezes present throughout HEART: Regular rate and rhythm, normal S1 and S2 without murmur. ABDOMEN: Morbidly Obese, Soft, nontender, not distended, normoactive bowel sounds : Foster catheter present draining clear yellow urine MUSCULOSKELETAL: No CVA tenderness. EXTREMITIES: 2+ pulses, B/L Calf tenderness (Patient says this is chronic). 2+ pitting edema R>L BACK: No Sacral decubitus ulcers noted Laboratory Results - last 24 hr 06/01/18 06/01/18 06/01/18 23:45 23:45 23:45 WBC 9.5 RBC 3.91 Hgb 10.6 L Hct 32.3 L D MCV 82.6 MCH 27.1 MCHC 32.7 RDW 17.8 H Plt Count 172 D MPV 9.8 D Absolute Neuts (auto) 8.9 H Neutrophils % 93.5 H D Neutrophils % (Manual) 53.1 Band Neutrophils % 24.5 Lymphocytes % 3.4 L D Lymphocytes % (Manual) 6.1 L Monocytes % 2.7 L Monocytes % (Manual) 3 L Eosinophils % 0.0 D Eosinophils % (Manual) 0.0 Basophils % 0.4 Basophils % (Manual) 2.0 Myelocytes % (Man) 4 H Promyelocytes % (Man) 0 Blast Cells % (Manual) 0 Nucleated RBC % 0 Metamyelocytes 7 H Hypochromia 2+ Platelet Estimate Decreased Polychromasia 0 Poikilocytosis 1+ Basophilic Stippling 2+ Anisocytosis 2+ Microcytosis 2+ Macrocytosis 0 Tear Drop Cells 1+ PT with INR 13.00 INR 1.15 H PTT (Actin FS) 30.8 Anticoagulation Therapy Puncture Site ABG pH ABG pCO2 at Pt Temp ABG pO2 at Pt Temp ABG HCO3 ABG O2 Sat (Measured) ABG O2 Content ABG Base Excess Uziel Test VBG pH 7.38 POC VBG pCO2 53.1 H POC VBG pO2 78.7 H D Mixed VBG HCO3 31.0 H Carboxyhemoglobin Methemoglobin O2 Delivery Device Oxygen Flow Rate Vent Mode Vent Rate Mechanical Rate PEEP Pressure Support Vent Sodium Potassium Chloride Carbon Dioxide Anion Gap BUN Creatinine Creat Clearance w eGFR Random Glucose Lactic Acid Calcium Total Bilirubin AST ALT Alkaline Phosphatase Troponin I Total Protein Albumin Urine Color Urine Appearance Urine pH Ur Specific [place] Urine Protein Urine Glucose (UA) Urine Ketones Urine Blood Urine Nitrite Urine Bilirubin Urine Urobilinogen Ur Leukocyte Esterase Urine WBC (Auto) Urine RBC (Auto) Ur Epithelial Cells Urine Bacteria Hyaline Casts Urine Mucus 06/02/18 06/02/18 06/02/18 01:15 01:15 01:15 WBC RBC Hgb Hct MCV MCH MCHC RDW Plt Count MPV Absolute Neuts (auto) Neutrophils % Neutrophils % (Manual) Band Neutrophils % Lymphocytes % Lymphocytes % (Manual) Monocytes % Monocytes % (Manual) Eosinophils % Eosinophils % (Manual) Basophils % Basophils % (Manual) Myelocytes % (Man) Promyelocytes % (Man) Blast Cells % (Manual) Nucleated RBC % Metamyelocytes Hypochromia Platelet Estimate Polychromasia Poikilocytosis Basophilic Stippling Anisocytosis Microcytosis Macrocytosis Tear Drop Cells PT with INR INR PTT (Actin FS) Anticoagulation Therapy Puncture Site ABG pH ABG pCO2 at Pt Temp ABG pO2 at Pt Temp ABG HCO3 ABG O2 Sat (Measured) ABG O2 Content ABG Base Excess Uziel Test VBG pH POC VBG pCO2 POC VBG pO2 Mixed VBG HCO3 Carboxyhemoglobin Methemoglobin O2 Delivery Device Oxygen Flow Rate Vent Mode Vent Rate Mechanical Rate PEEP Pressure Support Vent Sodium 135 L Potassium 4.5 Chloride 94 L Carbon Dioxide 34 H Anion Gap 7 L BUN 78 H Creatinine 2.7 H Creat Clearance w eGFR 17.09 Random Glucose 241 H Lactic Acid 1.6 Calcium 9.3 Total Bilirubin 0.5 AST 22 ALT 17 Alkaline Phosphatase 80 Troponin I < 0.02 Total Protein 7.6 Albumin 3.5 Urine Color Urine Appearance Urine pH Ur Specific [place] Urine Protein Urine Glucose (UA) Urine Ketones Urine Blood Urine Nitrite Urine Bilirubin Urine Urobilinogen Ur Leukocyte Esterase Urine WBC (Auto) Urine RBC (Auto) Ur Epithelial Cells Urine Bacteria Hyaline Casts Urine Mucus 06/02/18 06/02/18 02:25 03:52 WBC RBC Hgb Hct MCV MCH MCHC RDW Plt Count MPV Absolute Neuts (auto) Neutrophils % Neutrophils % (Manual) Band Neutrophils % Lymphocytes % Lymphocytes % (Manual) Monocytes % Monocytes % (Manual) Eosinophils % Eosinophils % (Manual) Basophils % Basophils % (Manual) Myelocytes % (Man) Promyelocytes % (Man) Blast Cells % (Manual) Nucleated RBC % Metamyelocytes Hypochromia Platelet Estimate Polychromasia Poikilocytosis Basophilic Stippling Anisocytosis Microcytosis Macrocytosis Tear Drop Cells PT with INR INR PTT (Actin FS) Anticoagulation Therapy No Result Required. Puncture Site Left radial ABG pH 7.38 ABG pCO2 at Pt Temp 53.7 H D ABG pO2 at Pt Temp 95.5 D ABG HCO3 30.7 H ABG O2 Sat (Measured) 97.4 ABG O2 Content 13.4 L ABG Base Excess 5.1 H Uziel Test Positive VBG pH POC VBG pCO2 POC VBG pO2 Mixed VBG HCO3 Carboxyhemoglobin 1.8 Methemoglobin 1.8 H O2 Delivery Device Bipap Oxygen Flow Rate 40% Vent Mode S/t Vent Rate 14 Mechanical Rate No Result Required. PEEP 0.0 Pressure Support Vent 12/6 Sodium Potassium Chloride Carbon Dioxide Anion Gap BUN Creatinine Creat Clearance w eGFR Random Glucose Lactic Acid Calcium Total Bilirubin AST ALT Alkaline Phosphatase Troponin I Total Protein Albumin Urine Color Yellow Urine Appearance Cloudy Urine pH 5.0 Ur Specific [place] 1.012 Urine Protein 2+ H Urine Glucose (UA) Negative Urine Ketones Negative Urine Blood 2+ H Urine Nitrite Negative Urine Bilirubin Negative Urine Urobilinogen Negative Ur Leukocyte Esterase Negative Urine WBC (Auto) <1 Urine RBC (Auto) 1 Ur Epithelial Cells Many Urine Bacteria Rare Hyaline Casts 2 Urine Mucus Rare Active Medications Albuterol/Ipratropium (Duoneb -) 1 amp NEB RQID [facility] Albuterol/Ipratropium (Duoneb -) 1 amp NEB Q4H PRN PRN Reason: SHORTNESS OF BREATH Aspirin (Asa -) 81 mg PO DAILY [facility] Atorvastatin Calcium (Lipitor -) 40 mg PO HS [facility] Furosemide (Lasix Injection -) 40 mg IVPUSH DAILY [facility] Heparin Sodium (Porcine) (Heparin -) 5,000 unit SQ TID [facility] Last Admin: 06/02/18 05:20 Dose: 5,000 unit Azithromycin 500 mg/ Dextrose 250 mls @ 250 mls/hr IVPB DAILY [facility] Insulin Aspart (Novolog Vial Sliding Scale -) 1 vial SQ ACHS [facility]; Protocol Levothyroxine Sodium (Synthroid -) 88 mcg PO 0700 [facility] Methylprednisolone Sodium Succinate (Solu-Medrol -) 40 mg IVPUSH Q8H-IV [facility] Metoprolol Tartrate (Lopressor -) 25 mg PO DAILY [facility] Montelukast Sodium (Singulair -) 10 mg PO HS [facility] ASSESSMENT/PLAN: 77 y/o F with a PMHx of COPD with Bipap at night, Asthma, Obesity, CKD, CVA with Residual Right Hemiparesis, CAD (S/P Cath), HTN, DM, Anemia (S/P Multiple transfusions in the past), Thyroid disease was BIBEMS with SOB of unclear duration and will be admitted to Tele. 1. SOB - Likely due to COPD/Asthma exacerbation vs OHS; Consider possible LLL PNA, CHF , Delirium due to metabolic derangements - Patient began to improve after Course of bronchodilators, Solumederol and Bipap - Continue BIPAP (Settings Ipap 12, Epap 6, Rate 14, FiO2 40%) - CXR pending official read - Chest CT w/o contrast to r/o PNA/Infiltrate pending official read - Urine toxicology ordered - Solumederol 40mg q8h - Azithromycin 500mg IV Daily - Duoneb QID and q4h PRN - Continue Home dose Singulair (Med's Reconciled) - Pulmonary (Dr. Emmanuel) consulted 2. ?CHF - Likely not on ACEi due to CKD - Echo ordered for today - BNP pending - Lasix IV 40 mg daily; Hold home dose Lasix - Strict I&Os, Daily weights - Started on Metoprolol 25mg PO 3. Lower Extremity Edema - Likely to due to Fluid overload, Consider DVT - Duplex b/l lower extremities to r/o DVT - Continue Lasix 4. R/O ACS - EKG NSR, not suggestive of ischemia - Troponin < 0.02 X1 - Second trop pending 5. CKD - Nephrology (Dr. Jaquez) Consulted 6. DM - ISS BGMs ACHS - Hold home meds 7. HLD - Continue home dose Lipitor 40mg HS 8. Hypothyroidism - Continue home dose Synthroid 88mcg daily 9. FEN - PO Fluids - Continue to monitor lytes - Diabetic, low salt, low cholesterol diet 10. PPx - DVT: Heparin TID Dispo: Admit to Tele Visit type - Emergency Visit Emergency Visit: Yes ED Registration Date: 06/02/18 Care time: The patient presented to the Emergency Department on the above date and was hospitalized for further evaluation of their emergent condition. - New Patient This patient is new to me today: Yes Date on this admission: 06/02/18 - Critical Care Critical Care patient: No Hospitalist Screening - Colonoscopy Questionnaire Colonoscopy Questionnaire: Colonoscopy Questionnaire - Patient: 50 - 75 years old and never had a screening colonoscopy: Unknown History of colon or rectal polyps, or CA: Unknown History of IBD, Crohn's disease or UC: Unknown History of abdominal radiation therapy as a child: Unknown - Relative: 1 with colon or rectal CA, or polyps at age 60 or younger: Unknown Colon or rectal CA diagnosed at age 45 or younger: Unknown Multiple relatives with colon or rectal CA: Unknown - Outcome: Screening Result: Negative Screen
[2018-06-02] MEDS ORDERED: ALBUTEROL SO4 2.5/IPRATROPIUM 0.5 INH SOL 3 ML VIAL.NEB. NEB PRN (04:53)
[2018-06-02] MEDS ORDERED: HEPARIN NA (PORCINE) 5,000 UNITS/ML 1ML VIAL ONE (05:16)
[2018-06-02] MEDS: HEPARIN NA (PORCINE) 5,000 UNITS/ML 1ML VIAL SQ SCH ×3 (05:20→21:31)
[2018-06-02 06:27] LABS: N-TERMINAL BNP 1074.36 pg/ml (5-450)
[2018-06-02] MEDS: ALBUTEROL SO4 2.5/IPRATROPIUM 0.5 INH SOL 3 ML VIAL.NEB. NEB SCH ×4 (07:50→21:00)
[2018-06-02 08:30] LABS: BASO % 0.2 % (0-2.0); EOS % 1.4 % (0-4.5); HEMATOCRIT 31.9 % (32.4-45.2); HEMOGLOBIN 10.3 GM/dL (10.7-15.3); LYMPH % 3.8 % (8-40); MCH 26.8 pg (25.7-33.7); MCHC 32.3 g/dl (32.0-36.0); MEAN CELL VOLUME 83.1 fl (80-96); MEAN PLT VOLUME 9.2 fl (7.5-11.1); NEUT % 93.6 % (42.8-82.8); PLATELET COUNT 141 K/MM3 (134-434); RBC 3.84 M/mm3 (3.60-5.2); RDW 17.4 % (11.6-15.6); WHITE BLOOD COUNT 11.3 K/mm3 (4.0-10.0)
[2018-06-02 08:59] LABS: CHLORIDE 93 mmol/L (98-107); SODIUM 133 mmol/L (136-145)
[2018-06-02 09:17] LABS: ALBUMIN 3.2 g/dl (3.4-5.0); ALK PHOS 77 U/L (45-117); ANION GAP 14 MMOL/L (8-16); BILIRUBIN,TOTAL 0.7 mg/dL (0.2-1.0); BLOOD UREA NITROGEN 74 mg/dL (7-18); CALCIUM 9.2 mg/dL (8.5-10.1); CO2 26 mmol/L (21-32); CREATININE 2.5 mg/dL (0.55-1.02); PHOSPHOROUS 3.6 mg/dL (2.5-4.9); SGPT/ALT 19 U/L (12-78); TOT PROT 7.3 g/dl (6.4-8.2)
[2018-06-02 09:28] LABS: MAGNESIUM 2.7 mg/dL (1.8-2.4); POTASSIUM 4.8 mmol/L (3.5-5.1); SGOT/AST 27 U/L (15-37)
[2018-06-02 09:35] LABS: GLUCOSE,RANDOM 301 mg/dL (74-106)
--- NOTE | 2018-06-02 09:43 | PN ---
Physical Exam: SUBJECTIVE: Patient seen and examined at bedside. Noted to be shivering, admits to feeling cold, despite wrapped in multiple blankets. Currently afebrile, and afebrie overnight. No sweats. Patient is on BiPAP FiO2 40%, IPAP 12, EPAP 6, rate 14, tolerating well. Patient is lethargic upon my exam, and has to be awoken multiple times, and questions repeated. Her answers are minimal and she repeatedly answers "I don't now" to questions regarding her medical history. OBJECTIVE: Vital Signs Period Temp Pulse Resp BP Sys/Mike Pulse Ox Last 24 Hr 97.9 F-100.0 F 71-88 20-24 101-133/40-71 98-100 GENERAL: The patient is awake, alert, in distress. HEAD: Normal with no signs of trauma. EYES: PERRL, extraocular movements intact, sclera anicteric. ENT: Oropharynx clear without exudates, moist mucous membranes. NECK: Supple withut lymphadenopathy. LUNGS: On BiPAP 40 FiO2. Breath sounds equal, end-expiratory wheezes auscultated B/L lungs upper and lower lobes. No crackles appreciated. No accessory muscle use observed upon my exam this morning. HEART: Regular rate and rhythm, +S1, S2 auscultated without murmur, rub or gallop. ABDOMEN: Soft, nontender, nondistended, normoactive bowel sounds, no guarding, no rebound, no hepatosplenomegaly appreciated. EXTREMITIES: 2+ radial and 1+ DP pulses B/L. 3+ pitting edema right lower extremity. 1+ pitting edema left lower extremity. NEUROLOGICAL: LUE strength 3/5 for flexion, extension. RUE strength 2/5 for flexion, extension. LUE abducion strength 2/5. RUE abduction strength 1/5. LLE flexion, extension 2/5. RLE flexion strength 0/5. LLE extension strength 1/5. Dorsiflexion, plantaflexion RLE 1/5. Dorsiflexion, plantarflexion LLE 3/5. SKIN: Warm, dry. No rashes or lesions. Laboratory Results - last 24 hr 06/01/18 06/01/18 06/01/18 23:45 23:45 23:45 WBC 9.5 RBC 3.91 Hgb 10.6 L Hct 32.3 L D MCV 82.6 MCH 27.1 MCHC 32.7 RDW 17.8 H Plt Count 172 D MPV 9.8 D Absolute Neuts (auto) 8.9 H Neutrophils % 93.5 H D Neutrophils % (Manual) 53.1 Band Neutrophils % 24.5 Lymphocytes % 3.4 L D Lymphocytes % (Manual) 6.1 L Monocytes % 2.7 L Monocytes % (Manual) 3 L Eosinophils % 0.0 D Eosinophils % (Manual) 0.0 Basophils % 0.4 Basophils % (Manual) 2.0 Myelocytes % (Man) 4 H Promyelocytes % (Man) 0 Blast Cells % (Manual) 0 Nucleated RBC % 0 Metamyelocytes 7 H Hypochromia 2+ Platelet Estimate Decreased Polychromasia 0 Poikilocytosis 1+ Basophilic Stippling 2+ Anisocytosis 2+ Microcytosis 2+ Macrocytosis 0 Tear Drop Cells 1+ PT with INR 13.00 INR 1.15 H PTT (Actin FS) 30.8 Anticoagulation Therapy Puncture Site ABG pH ABG pCO2 at Pt Temp ABG pO2 at Pt Temp ABG HCO3 ABG O2 Sat (Measured) ABG O2 Content ABG Base Excess Uziel Test VBG pH 7.38 POC VBG pCO2 53.1 H POC VBG pO2 78.7 H D Mixed VBG HCO3 31.0 H Carboxyhemoglobin Methemoglobin O2 Delivery Device Oxygen Flow Rate Vent Mode Vent Rate Mechanical Rate PEEP Pressure Support Vent Sodium Potassium Chloride Carbon Dioxide Anion Gap BUN Creatinine Creat Clearance w eGFR Random Glucose Lactic Acid Calcium Total Bilirubin AST ALT Alkaline Phosphatase Troponin I B-Natriuretic Peptide Total Protein Albumin Urine Color Urine Appearance Urine pH Ur Specific [place] Urine Protein Urine Glucose (UA) Urine Ketones Urine Blood Urine Nitrite Urine Bilirubin Urine Urobilinogen Ur Leukocyte Esterase Urine WBC (Auto) Urine RBC (Auto) Ur Epithelial Cells Urine Bacteria Hyaline Casts Urine Mucus 06/01/18 06/01/18 06/01/18 23:45 23:45 23:45 WBC RBC Hgb Hct MCV MCH MCHC RDW Plt Count MPV Absolute Neuts (auto) Neutrophils % Neutrophils % (Manual) Band Neutrophils % Lymphocytes % Lymphocytes % (Manual) Monocytes % Monocytes % (Manual) Eosinophils % Eosinophils % (Manual) Basophils % Basophils % (Manual) Myelocytes % (Man) Promyelocytes % (Man) Blast Cells % (Manual) Nucleated RBC % Metamyelocytes Hypochromia Platelet Estimate Polychromasia Poikilocytosis Basophilic Stippling Anisocytosis Microcytosis Macrocytosis Tear Drop Cells PT with INR INR PTT (Actin FS) Anticoagulation Therapy Puncture Site ABG pH ABG pCO2 at Pt Temp ABG pO2 at Pt Temp ABG HCO3 ABG O2 Sat (Measured) ABG O2 Content ABG Base Excess Uziel Test VBG pH POC VBG pCO2 POC VBG pO2 Mixed VBG HCO3 Carboxyhemoglobin Methemoglobin O2 Delivery Device Oxygen Flow Rate Vent Mode Vent Rate Mechanical Rate PEEP Pressure Support Vent Sodium Cancelled Potassium Cancelled Chloride Cancelled Carbon Dioxide Cancelled Anion Gap Cancelled BUN Cancelled Creatinine Cancelled Creat Clearance w eGFR Cancelled Random Glucose Cancelled Lactic Acid 1.9 Calcium Cancelled Total Bilirubin Cancelled AST Cancelled ALT Cancelled Alkaline Phosphatase Cancelled Troponin I Cancelled B-Natriuretic Peptide Total Protein Cancelled Albumin Cancelled Urine Color Urine Appearance Urine pH Ur Specific [place] Urine Protein Urine Glucose (UA) Urine Ketones Urine Blood Urine Nitrite Urine Bilirubin Urine Urobilinogen Ur Leukocyte Esterase Urine WBC (Auto) Urine RBC (Auto) Ur Epithelial Cells Urine Bacteria Hyaline Casts Urine Mucus 06/02/18 06/02/18 06/02/18 01:15 01:15 01:15 WBC RBC Hgb Hct MCV MCH MCHC RDW Plt Count MPV Absolute Neuts (auto) Neutrophils % Neutrophils % (Manual) Band Neutrophils % Lymphocytes % Lymphocytes % (Manual) Monocytes % Monocytes % (Manual) Eosinophils % Eosinophils % (Manual) Basophils % Basophils % (Manual) Myelocytes % (Man) Promyelocytes % (Man) Blast Cells % (Manual) Nucleated RBC % Metamyelocytes Hypochromia Platelet Estimate Polychromasia Poikilocytosis Basophilic Stippling Anisocytosis Microcytosis Macrocytosis Tear Drop Cells PT with INR INR PTT (Actin FS) Anticoagulation Therapy Puncture Site ABG pH ABG pCO2 at Pt Temp ABG pO2 at Pt Temp ABG HCO3 ABG O2 Sat (Measured) ABG O2 Content ABG Base Excess Uziel Test VBG pH POC VBG pCO2 POC VBG pO2 Mixed VBG HCO3 Carboxyhemoglobin Methemoglobin O2 Delivery Device Oxygen Flow Rate Vent Mode Vent Rate Mechanical Rate PEEP Pressure Support Vent Sodium 135 L Potassium 4.5 Chloride 94 L Carbon Dioxide 34 H Anion Gap 7 L BUN 78 H Creatinine 2.7 H Creat Clearance w eGFR 17.09 Random Glucose 241 H Lactic Acid 1.6 Calcium 9.3 Total Bilirubin 0.5 AST 22 ALT 17 Alkaline Phosphatase 80 Troponin I < 0.02 B-Natriuretic Peptide 1074.36 H Total Protein 7.6 Albumin 3.5 Urine Color Urine Appearance Urine pH Ur Specific [place] Urine Protein Urine Glucose (UA) Urine Ketones Urine Blood Urine Nitrite Urine Bilirubin Urine Urobilinogen Ur Leukocyte Esterase Urine WBC (Auto) Urine RBC (Auto) Ur Epithelial Cells Urine Bacteria Hyaline Casts Urine Mucus 06/02/18 06/02/18 02:25 03:52 WBC RBC Hgb Hct MCV MCH MCHC RDW Plt Count MPV Absolute Neuts (auto) Neutrophils % Neutrophils % (Manual) Band Neutrophils % Lymphocytes % Lymphocytes % (Manual) Monocytes % Monocytes % (Manual) Eosinophils % Eosinophils % (Manual) Basophils % Basophils % (Manual) Myelocytes % (Man) Promyelocytes % (Man) Blast Cells % (Manual) Nucleated RBC % Metamyelocytes Hypochromia Platelet Estimate Polychromasia Poikilocytosis Basophilic Stippling Anisocytosis Microcytosis Macrocytosis Tear Drop Cells PT with INR INR PTT (Actin FS) Anticoagulation Therapy No Result Required. Puncture Site Left radial ABG pH 7.38 ABG pCO2 at Pt Temp 53.7 H D ABG pO2 at Pt Temp 95.5 D ABG HCO3 30.7 H ABG O2 Sat (Measured) 97.4 ABG O2 Content 13.4 L ABG Base Excess 5.1 H Uziel Test Positive VBG pH POC VBG pCO2 POC VBG pO2 Mixed VBG HCO3 Carboxyhemoglobin 1.8 Methemoglobin 1.8 H O2 Delivery Device Bipap Oxygen Flow Rate 40% Vent Mode S/t Vent Rate 14 Mechanical Rate No Result Required. PEEP 0.0 Pressure Support Vent 12/6 Sodium Potassium Chloride Carbon Dioxide Anion Gap BUN Creatinine Creat Clearance w eGFR Random Glucose Lactic Acid Calcium Total Bilirubin AST ALT Alkaline Phosphatase Troponin I B-Natriuretic Peptide Total Protein Albumin Urine Color Yellow Urine Appearance Cloudy Urine pH 5.0 Ur Specific [place] 1.012 Urine Protein 2+ H Urine Glucose (UA) Negative Urine Ketones Negative Urine Blood 2+ H Urine Nitrite Negative Urine Bilirubin Negative Urine Urobilinogen Negative Ur Leukocyte Esterase Negative Urine WBC (Auto) <1 Urine RBC (Auto) 1 Ur Epithelial Cells Many Urine Bacteria Rare Hyaline Casts 2 Urine Mucus Rare Active Medications Generic Name Dose Route Start Last Admin Trade Name Freq PRN Reason Stop Dose Admin Albuterol/Ipratropium 1 amp 06/02/18 08:00 06/02/18 07:50 Duoneb - NEB 1 amp RQID [facility] Administration Albuterol/Ipratropium 1 amp 06/02/18 04:53 Duoneb - NEB Q4H PRN SHORTNESS OF BREATH Aspirin 81 mg 06/02/18 10:00 Asa - PO DAILY [facility] Atorvastatin Calcium 40 mg 06/02/18 22:00 Lipitor - PO HS [facility] Furosemide 40 mg 06/02/18 10:00 Lasix Injection - IVPUSH DAILY [facility] Heparin Sodium (Porcine) 5,000 unit 06/02/18 05:00 06/02/18 05:20 Heparin - SQ 5,000 unit TID [facility] Administration Azithromycin 500 mg/ Dextrose 250 mls @ 250 mls/hr 06/02/18 10:00 IVPB DAILY [facility] Insulin Aspart 1 vial 06/02/18 07:00 Novolog Vial Sliding Scale - SQ ACHS [facility] Protocol Levothyroxine Sodium 88 mcg 06/02/18 07:00 Synthroid - PO 0700 [facility] Methylprednisolone Sodium Succinate 40 mg 06/02/18 10:00 Solu-Medrol - IVPUSH Q8H-IV [facility] Metoprolol Tartrate 25 mg 06/02/18 10:00 Lopressor - PO DAILY [facility] Montelukast Sodium 10 mg 06/02/18 22:00 Singulair - PO HS [facility] ASSESSMENT/PLAN: Patient is a 77 year old female with history of COPD (on overnight BiPAP at home ), asthma, obesity, chronic kidney disease, CVA with residual right-sided hemiparesis, coronary artery disease (s/p cardiac cath), HTN, HLD, DM, anemia (s /p past transfusions), presents with complaint of shortness of breath. Shortness of breath -Unclear duration -R/O ACS- EKG showed NSR without ischemic changes. Troponins negative X2. -May be due to COPD/asthma excerbation vs. left lower lobe pneumonia vs. ?CHF -Patient given Solumedrol, and Dunoebs in ED, placed on BiPAP with improvement -BiPAP FiO2 40%, IPAP 12, EPAP 6, rate 14, -Chest Xray: weak inspiratory effort, questionable markings of left lung base -CT chest: No pleural effusions, no pneumonia identified. Dependent atelectesis in B/L lower lung lobes. -Continue Duo nebs Q4H and PRN -Continue Solu-medrol 40mg Q8H -Continue Singulair 10mg PO HS -Azithromycin 500mg IV QD [Patient was given Vancomycin 1000mg, and Zosyn 3.375gm in ED] -Pulmonology consult (Dr. Vick) appreciated: Will continue steroids, bronchodilators, and NIPPV. Will consider f/u CT scan to follow resolution of infiltrates. Congestive heart failure -BNP 1074.36 -Reinstate home medication Lasix 80mg PO BID -Reinstate home medication Coreg 25mg PO BID -F/U cardiac echo -Strict daily Intake and Output Right lower extremity edema -Possibly due to fluid overload, secondary to CHF -3+ pitting edema today (left leg 1+ pitting edema) -R/O DVT: F/U lower extremity doppler Chronic kidney disease -BUN 78, Cr 2.7 today (2.3 baseline on prior admission) -F/U nephrology consult (Dr. Jaquez) HTN -Reinstate home medication Norvasc 5mg PO QD Hypothyroidism -Continue home medication: Synthroid 88mcg QD DM -Levemir 42 units daily. 20 units given now. Will resume regular dosage tomorrow AM. -Insulin sliding scale -Fingerstick BGM ACHS HLD -Continue home medication: Lipitor 40mg HS Constipation -Senna 2 tablets QD PRN FEN -No IV fluids at this time. Patient tolerates PO fluids -Will follow CMP -Diabetic, low salt, low cholesterol diet Prophylaxis -Heparin 5000u SQ TID Disposition: -Continue care in Telemetry floor. Visit type - Emergency Visit Emergency Visit: No - New Patient This patient is new to me today: Yes Date on this admission: 06/02/18 - Critical Care Critical Care patient: No - Discharge Referral Referred to [facility] No
[2018-06-02] MEDS: ASPIRIN 81 MG CHEWABLE TABLETS PO SCH (09:50)
[2018-06-02] MEDS: LEVOTHYROXINE NA 88 MCG TABLET (FP) PO SCH (09:50)
[2018-06-02] MEDS: methylPREDNISolone NA SUCC 40 MG/1 ML VIAL IVPUSH SCH ×2 (09:50→17:06)
[2018-06-02] MEDS ORDERED: FUROSEMIDE 40 MG/4 ML INJECTABLE VIAL IVPUSH SCH (10:00)
[2018-06-02] MEDS ORDERED: METOPROLOL TARTRATE 25 MG TABLET (FP) PO SCH (10:00)
[2018-06-02] MEDS ORDERED: AZITHROMYCIN IVPB 500 MG in DEXTROSE 5%-WATER - 250 ML IVPB SCH (10:00)
--- NOTE | 2018-06-02 11:31 | EKG ---
Test Reason : Blood Pressure : / mmHG Vent. Rate : 083 BPM Atrial Rate : 083 BPM P-R Int : 186 ms QRS Dur : 076 ms QT Int : 360 ms P-R-T Axes : 056 -12 135 degrees QTc Int : 423 ms NORMAL SINUS RHYTHM T WAVE ABNORMALITY, CONSIDER LATERAL ISCHEMIA ABNORMAL ECG WHEN COMPARED WITH ECG OF 05-APR-2017 13:21, NO SIGNIFICANT CHANGE WAS FOUND Confirmed by ANYI VARGAS, ANN ([id number]) on 06/02/2018 11:31:33 AM Referred By: Confirmed By:ANN DE SANTIAGO MD
--- NOTE | 2018-06-02 12:01 | PN ---
Progress Note (short form) - Note Progress Note: PULMONARY CONSULTATION DICTATED 06/02/18 IMP ACUTE HYPOXEMIC/HYPERCAPNEIC RESPIRATORY FAILURE BIBASILAR CONSOLIDATIONS PNEUMONIA/ATELECTASIS ASTHMA/COPD EXACERBATION TRACHEAL DENSITY LIKELY RETAINED SECRETIONS ROSITA CKD DM HTN MORBID OBESITY H/O CVA PLAN IV ABX STEROIDS INHALED BRONCHODILATORS O2 NIPPV NEEDED CULTURES URINARY ANTIGENS F/U CHEST CT TO DOCUMENT RESOLUTION OF INFILTRATES,TRACHEAL LESION MONITOR LYTES,RENAL FUNCTION DR [facility] Problem List - Problems (1) Acute hypercapnic respiratory failure Code(s): J96.02 - ACUTE RESPIRATORY FAILURE WITH HYPERCAPNIA (2) COPD exacerbation Code(s): J44.1 - CHRONIC OBSTRUCTIVE PULMONARY DISEASE W (ACUTE) EXACERBATION (3) Morbid obesity Code(s): E66.01 - MORBID (SEVERE) OBESITY DUE TO EXCESS CALORIES (4) CKD (chronic kidney disease) Code(s): N18.9 - CHRONIC KIDNEY DISEASE, UNSPECIFIED Qualifiers: Chronic kidney disease stage: unspecified stage Qualified Code(s): N18.9 - Chronic kidney disease, unspecified (5) Anemia Code(s): D64.9 - ANEMIA, UNSPECIFIED Qualifiers: Iron deficiency anemia type: chronic blood loss (6) Asthma Code(s): J45.909 - UNSPECIFIED ASTHMA, UNCOMPLICATED (7) Diabetes Code(s): E11.9 - TYPE 2 DIABETES MELLITUS WITHOUT COMPLICATIONS (8) HTN (hypertension) Code(s): I10 - ESSENTIAL (PRIMARY) HYPERTENSION (9) Sleep apnea Code(s): G47.30 - SLEEP APNEA, UNSPECIFIED (10) CVA (cerebral vascular accident) Code(s): I63.9 - CEREBRAL INFARCTION, UNSPECIFIED (11) Acute respiratory failure with hypoxemia Code(s): J96.01 - ACUTE RESPIRATORY FAILURE WITH HYPOXIA (12) Pneumonia Code(s): J18.9 - PNEUMONIA, UNSPECIFIED ORGANISM
[2018-06-02] MEDS: INSULIN SLIDING SCALE (NOVOLOG) 1 VIAL SQ SCH ×4 (12:14→21:40)
[2018-06-02] MEDS: BUDESONIDE/FORMETEROL FUMARATE 160/4.5 mcg INHALER IH SCH ×2 (12:14→21:32)
--- NOTE | 2018-06-02 12:52 | CONS ---
DATE OF CONSULTATION: 06/02/2018 PULMONARY CONSULTATION REFERRING PHYSICIAN: Román Felipe MD HISTORY OF PRESENT ILLNESS: The patient is a 77-year-old black female known to me from previous hospitalization with a past medical history of obstructive sleep apnea not on CPAP and old Bi-PAP, the patient refuses, chronic kidney disease, diabetes, anemia, hypertension, COPD/asthma, nonsmoker, history of CVA, morbid obesity essentially bedridden, admitted to [facility] with a complaint of shortness of breath, wheezing, and chills. The patient went to see her doctor yesterday for a routine office visit. Apparently she was doing well until last night when she went to bed she had an episode of diarrhea. The patient then developed acute onset of shortness of breath, wheezing, as well as shaking chills. According to her she felt very hot like she had a fever but he did not take her temperature. EMS was called and the patient was brought to the emergency room. The patient denied any chest pain, nausea, vomiting or diaphoresis. She denied any hemoptysis. In the ER she was treated with inhaled bronchodilators and placed on antibiotics as well as Bi-PAP and was transferred to the medical floor for management. The patient denies any history of recent travel. There is no history of DVT or PE in the past. As stated before she has a history of a CVA and she is essentially bedridden and the family states that she does not ambulate at all. She is a nonsmoker. She denies any history of occupational exposure to chemical fumes. PAST MEDICAL HISTORY: Again includes obstructive sleep apnea but not on CPAP and old Bi-PAP, chronic kidney disease, diabetes, anemia, hypertension, asthma, COPD, CVA, and morbid obesity. REVIEW OF SYSTEMS: Positive shortness of breath, positive cough, and positive wheezing. No chest pain, no palpitations. Likely fever, positive chills, and positive diarrhea. No nausea, no vomiting, and no abdominal pain. Positive lower extremity edema, right greater than left. CURRENT MEDICATIONS: Include Symbicort 160/4.5, Solu-Medrol 40 every 8, Zithromax, heparin, DuoNeb, Lopressor, Lipitor, NovoLog, Montelukast, Lasix, aspirin, and Synthroid. PHYSICAL EXAMINATION: General: Ms. Nicholson is an elderly black female who is obese, awake, alert, and currently in no distress. Vital Signs: Temperature is 100, blood pressure is 108/65, respiratory rate is 18, and oxygen saturation is 96% on nasal cannula. HEENT: Normocephalic, atraumatic. Neck: Supple. Heart: Regular, S1, S2. Chest: Few scattered bilateral crackles and wheezes. Abdomen: Soft. Bowel sounds are positive. Extremities: Bilateral lower extremity right greater than left. LABORATORY DATA: WBC 11.3, hemoglobin 10.3, hematocrit 31.9 with a platelet count of 141,000. Blood gas pH of 7.38, PCO2 of 58, PO2 of 95, bicarbonate of 30 and a saturation of 97; that was on Bi-PAP and I-PAP of 12, E-PAP of 6 with a rate of 14 on 40% oxygen. BUN is 74 and creatinine is 2.5. Chest x-ray revealed bibasilar consolidations, atelectasis and/or infiltrates and in the trachea there was noted to be a round density that likely represents retained mucus. IMPRESSION: Acute hypoxemic hypercapnic respiratory failure secondary to: 1. Likely chronic obstructive pulmonary disease asthma exacerbation. 2. Pneumonia. 3. Obstructive sleep apnea not on continuous positive airway pressure. 4. Diabetes. 5. Chronic kidney disease. 6. History of cerebrovascular accident. 7. Morbid obesity. PLAN: Intravenous antibiotics, inhaled bronchodilators, and supplemental oxygen. Obtain followup x-rays, sputum for C&S, and also gold agglutinin with rapid urine antigen. Monitor electrolytes, monitor as well as renal function and also DVT prophylaxis. OLIVER ZHU M.D. [id number]
--- NOTE | 2018-06-02 13:23 | CONSULT ---
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 Pt went to her doctors office in AM and then was wheezing all evening. No CP, Abd pain, N/V/D. No cough. Making urine w/o difficulty. TAJ barroso is doing well on oral Lasix at home. No NSAID use or recent contrast exposure. No rash on skin. PMHx: as above Allergies: NKDA Family Hx: NC Social Hx: No T/A/D ROS: As per HPI, all other pertinent ros negative Vital Signs Temperature 99.1 F 06/02/18 10:00 Pulse Rate 77 06/02/18 10:00 Respiratory Rate 18 06/02/18 10:00 Blood Pressure 108/55 06/02/18 10:00 O2 Sat by Pulse Oximetry (%) 98 06/02/18 09:00 Intake & Output 05/30/18 05/31/18 06/01/18 06/02/18 23:59 23:59 23:59 23:59 Intake Total 300 Output Total 550 Balance -250 Weight 86.183 kg NAD awake and alert RRR, NO M/R + exp wheezing, no rales soft NT/ND, Obese NO Le edmea No bladder distension or tenderness CBC, BMP 06/02/18 07:35 06/02/18 07:35 Current Medications Albuterol/Ipratropium (Duoneb -) 1 amp NEB RQID [facility] Last Admin: 06/02/18 07:50 Dose: 1 amp Albuterol/Ipratropium (Duoneb -) 1 amp NEB Q4H PRN PRN Reason: SHORTNESS OF BREATH Aspirin (Asa -) 81 mg PO DAILY [facility] Last Admin: 06/02/18 09:50 Dose: 81 mg Atorvastatin Calcium (Lipitor -) 40 mg PO HS [facility] Budesonide/Formoterol Fumarate (Symbicort 160/4.5mcg -) 2 puff IH BID [facility] Last Admin: 06/02/18 12:14 Dose: 2 puff Furosemide (Lasix Injection -) 40 mg IVPUSH DAILY [facility] Last Admin: 06/02/18 09:50 Dose: 40 mg Heparin Sodium (Porcine) (Heparin -) 5,000 unit SQ TID [facility] Last Admin: 06/02/18 05:20 Dose: 5,000 unit Azithromycin 500 mg/ Dextrose 250 mls @ 250 mls/hr IVPB DAILY [facility] Last Admin: 06/02/18 12:14 Dose: 250 mls/hr Insulin Aspart (Novolog Vial Sliding Scale -) 1 vial SQ ACHS [facility]; Protocol Last Admin: 06/02/18 12:14 Dose: 10 units Levothyroxine Sodium (Synthroid -) 88 mcg PO 0700 [facility] Last Admin: 06/02/18 09:50 Dose: 88 mcg Methylprednisolone Sodium Succinate (Solu-Medrol -) 40 mg IVPUSH Q8H-IV [facility] Last Admin: 06/02/18 09:50 Dose: 40 mg Metoprolol Tartrate (Lopressor -) 25 mg PO DAILY [facility] Last Admin: 06/02/18 09:50 Dose: 25 mg Montelukast Sodium (Singulair -) 10 mg PO HS [facility] 77 year old AA woman with hx of 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 #COPD exacerbation #CHF #Hypertension #Hyponatremia (mild volume overload) #Anemia Renal function stable at this time no indication for [employer] no overt acidosis, hyperkalemia or uremia Continue IV Lasix for mangement of edmea continue steroids and abx for COPD exacerbation pulmonary follow up Continue Metoprolol for BP (can consider hodling if COPD not improved) No indication for 3% saline for hyponatremia Check iron studies Thank you Will follow Terrance Zamorano DO
--- NOTE | 2018-06-02 13:43 | ECHO ---
Name: BREE ACE Exam:Adult Echocardiogram Study Date: 06/02/2018 08:29 AM Age: 77 yrs Reason For Study: CHF Height: 63 in Weight: 190 lb BSA: 1.9 m2 MMode/2D Measurements & Calculations IVSd: 1.3 cm Ao root diam: 3.0 cm LVIDd: 4.4 cm LA dimension: 3.3 cm LVIDs: 3.0 cm LVPWd: 0.82 cm EDV(Teich): 86.6 ml ESV(Teich): 34.1 ml Doppler Measurements & Calculations MV E max prabhu: 90.2 cm/sec TR max prabhu: 199.5 cm/sec MV A max prabhu: 105.7 cm/sec TR max P.9 mmHg MV E/A: 0.85 MV dec time: 0.31 sec Med Peak E' Prabhu: 7.4 cm/sec PI Vmax: 66.5 cm/sec Med E/e': 12.2 Lat Peak E' Prabhu: 11.2 cm/sec Lat E/e': 8.0 Tech Comments . . Procedure The study was technically difficult with many images being suboptimal in quality. The study was non-d iagnostic in quality. No definitive statements could be made about this echo due to extremely poor acoustic win dows. Left Ventricle The left ventricle is not well visualized. The left ventricle is grossly normal size. Due to the poor quality of the echocardiogram, an assessment of left ventricular ejection fraction cannot be made. Regional w all motion abnormalities cannot be excluded due to limited visualization. Right Ventricle The right ventricle is not well visualized. Atria Normal left and right atrial size and function. Mitral Valve The mitral valve is not well visualized. Tricuspid Valve The tricuspid valve is not well visualized. There is no tricuspid stenosis. There is trace tricuspid regurgitation. Right ventricular systolic pressure is normal. Aortic Valve The aortic valve is not well visualized. Pulmonic Valve The pulmonic valve is not well visualized. Great Vessels The aortic root is normal size. Pericardium/Pleura There is no pericardial effusion. Interpretation Summary The left ventricle is not well visualized. The left ventricle is grossly normal size. The study was technically difficult with many images being suboptimal in quality. The study was non-diagnostic in quality. No definitive statements could be made about this echo due t o extremely poor acoustic windows. Regional wall motion abnormalities cannot be excluded due to limited visualization. Due to the poor quality of the echocardiogram, an assessment of left ventricular ejection fraction ca nnot be made. The mitral valve is not well visualized. The tricuspid valve is not well visualized. There is trace tricuspid regurgitation. Right ventricular systolic pressure is normal. MD Fausto Ross 06/02/2018 01:07 PM
--- NOTE | 2018-06-02 15:21 | PN ---
Teaching Attending Note Name of Resident: Jeff Montana ATTENDING PHYSICIAN STATEMENT I saw and evaluated the patient. I reviewed the resident's note and discussed the case with the resident. I agree with the resident's findings and plan as documented. SUBJECTIVE: reports fever at home. No cough . no cp . feels better now . son in law reports 2 episodes of soft stool yesterday OBJECTIVE: NAD , CV : RRR, no JVD Lungs :scattered wheezes on both lung zuleta Abd : soft, NT, ND , NL BS Ext:b/l LE edema with pitting. R > L A/P 76-year-old female with history of CVA (residual R-saima paresis, slurred speech ), DM Type II, COPD, CKD Stage 4, Pneumonia, PVD, HTN, Chronic R- lower extremity edema, diastolic heart failure , recent LE cellulites , and bacteremia who presented with SOB and was found tohave acute hypercapnic resp failure 1- Acute hyypoxic hypercapnic resp failure due to acute COPD exacerbation . likel y trigger is PNA . CT with bl infiltrates and blood cx with G+ hadley seals , off BIPAP now on 5 L of O2 - cont steroids - add symbicort - cont nebs - cont singular - start ceftiaxone for presume PNA and for bacteremia - dc azithro - repeat blood cx tomorrow 2- Bacteremia : ? form PNA . - start ceftriaxone - repeat cx tomorrow - Echo withpoor quaity - ? possible need for VERONICA to r/o vegetations - Id consult 3- tracheal lesion : need repeat CT to evaluate 4- DM : - resume levemir in am . give lower dose now - cont SSI 5- h/o CKD: cr at base line 6- h/o Diastolic heart failure . not in exacerbation - will likely resume her po home lasix tomorrow 7- HTN : will confirm her home meds dispo : OC
[2018-06-02] MEDS ORDERED: DEXTROSE 5%-WATER 100 ML IVPB ONE (16:30)
[2018-06-02] MEDS: CEFTRIAXONE 2 GM in DEXTROSE 5%-WATER 100 ML IVPB SCH (17:01)
[2018-06-02] MEDS: PANTOPRAZOLE 40 MG TABLET (FP) PO SCH (17:02)
[2018-06-02] MEDS ORDERED: INSULIN (LEVEMIR) 100 UNITS/ML UNITS SQ ONE (17:55)
[2018-06-02] MEDS ORDERED: ALBUTEROL SO4 0.083% IH SOL 2.5 MG/3 ML VIAL.NEB. NEB PRN (18:11)
[2018-06-02] MEDS ORDERED: INSULIN (NOVOLOG) ASPART 100 UNITS/ML 10ML VIAL ONE (18:14)
[2018-06-02] MEDS: ACETAMINOPHEN 325 MG TABLET (FP) PO PRN (18:15)
[2018-06-02] MEDS: ATORVASTATIN CA 40 MG TABLET (FP) PO SCH (21:31)
[2018-06-02] MEDS: MONTELUKAST NA 10 MG TABLET PO SCH (21:31)
[2018-06-02] MEDS: SENNOSIDES 8.6MG TABLET (FP) PO PRN (21:31)
[2018-06-02] MEDS: MIRTAZAPINE 15 MG TABLET (FP) PO SCH (21:32)
[2018-06-02] MEDS: CARVEDILOL 25 MG TABLET (FP) PO SCH (21:35)
[2018-06-03] MEDS: methylPREDNISolone NA SUCC 40 MG/1 ML VIAL IVPUSH SCH ×3 (02:29→21:27)
[2018-06-03] MEDS: FUROSEMIDE 40 MG TABLET (FP) PO SCH ×2 (06:17→13:24)
[2018-06-03] MEDS: LEVOTHYROXINE NA 88 MCG TABLET (FP) PO SCH (06:18)
[2018-06-03] MEDS: HEPARIN NA (PORCINE) 5,000 UNITS/ML 1ML VIAL SQ SCH ×3 (06:18→21:27)
[2018-06-03] MEDS: INSULIN SLIDING SCALE (NOVOLOG) 1 VIAL SQ SCH ×4 (06:18→21:30)
[2018-06-03 06:47] LABS: BASO % 0.3 % (0-2.0); HEMOGLOBIN 9.4 GM/dL (10.7-15.3); LYMPH % 5.3 % (8-40); MCH 26.6 pg (25.7-33.7); MCHC 32.5 g/dl (32.0-36.0); MEAN CELL VOLUME 81.8 fl (80-96); MEAN PLT VOLUME 9.6 fl (7.5-11.1); NEUT % 91.4 % (42.8-82.8); PLATELET COUNT 138 K/MM3 (134-434); RBC 3.54 M/mm3 (3.60-5.2); RDW 17.6 % (11.6-15.6); WHITE BLOOD COUNT 13.5 K/mm3 (4.0-10.0)
[2018-06-03] MEDS ORDERED: INSULIN (LEVEMIR) 100 UNITS/ML UNITS SQ SCH ×3 (07:00→22:00)
[2018-06-03] MEDS: ALBUTEROL SO4 2.5/IPRATROPIUM 0.5 INH SOL 3 ML VIAL.NEB. NEB SCH ×4 (07:25→21:17)
[2018-06-03 07:43] LABS: ALBUMIN 2.7 g/dl (3.4-5.0); ANION GAP 12 MMOL/L (8-16); BLOOD UREA NITROGEN 82 mg/dL (7-18); CALCIUM 8.5 mg/dL (8.5-10.1); CHLORIDE 89 mmol/L (98-107); CO2 30 mmol/L (21-32); GLUCOSE,RANDOM 285 mg/dL (74-106); MAGNESIUM 2.7 mg/dL (1.8-2.4); SODIUM 131 mmol/L (136-145)
[2018-06-03 07:53] LABS: ALK PHOS 72 U/L (45-117); BILIRUBIN,TOTAL 0.4 mg/dL (0.2-1.0); CREATININE 2.8 mg/dL (0.55-1.02); PHOSPHOROUS 3.3 mg/dL (2.5-4.9); SGOT/AST 20 U/L (15-37); SGPT/ALT 18 U/L (12-78); TOT PROT 6.6 g/dl (6.4-8.2)
--- NOTE | 2018-06-03 08:49 | PN ---
Teaching Attending Note Name of Resident: Parveen Leonard ATTENDING PHYSICIAN STATEMENT I saw and evaluated the patient. I reviewed the resident's note and discussed the case with the resident. I agree with the resident's findings and plan as documented. SUBJECTIVE: no fever or chills. breathing has improved. used BIPAP al night last night. no diarrhea this am , denies abd pain OBJECTIVE: NAD , CV: RRR, no JVD Lungs :scattered wheezes on both lung zuleta ( less compared to yesterday ) . good air entry Abd : soft, NT, ND , NL BS Ext:b/l LE edema with pitting. R > L A/P 76-year-old female with history of CVA (residual R-hemiparesis, slurred speech) , DM Type II, COPD, CKD Stage 4, Pneumonia, PVD, HTN, Chronic R- lower extremity edema, diastolic heart failure , recent LE cellulites , and bacteremia who presented with SOB and was found tohave acute hypercapnic resp failure 1- Acute hyypoxic hypercapnic resp failure due to acute COPD exacerbation. likely trigger is PNA . doing well on 3 L of O2 via NC - Steroids. decrease dose - cont symbicort - cont nebs - cont singular - Abx for PNA 2- Bacteremia : ? form PNA . - Cont ceftriaxone - ID cntacted and recommended vanco - ID eval pending - Echo with poor quality , ? VERONICA. cad eval - repeat Blood cx 3- tracheal lesion : need repeat CT to evaluate 4- DM : - levemir 10 in am and 32 HS - cont SSI ( increase dose ) 5- h/o CKD: cr at base line 6- h/o Diastolic heart failure . not in exacerbation - cont home dos eof lasix at 80 BID orally 7- HTN : resume imdur, coreg, and norvasc Dispo: HLOC Pt's PCP, Dr. Arechiga was updated over phone
[2018-06-03] MEDS: amLODIPine BESYLATE 5 MG TABLET (FP) PO SCH (09:49)
[2018-06-03] MEDS: CARVEDILOL 25 MG TABLET (FP) PO SCH ×2 (09:49→21:26)
[2018-06-03] MEDS: DULoxetine HCL 30 MG CAPSULE.DR (FP) PO SCH (09:49)
[2018-06-03] MEDS: PANTOPRAZOLE 40 MG TABLET (FP) PO SCH (09:49)
[2018-06-03] MEDS: ASPIRIN 81 MG CHEWABLE TABLETS PO SCH (09:49)
[2018-06-03] MEDS: ISOSORBIDE MONONITRATE 60 MG TAB.SR.24H (FP) PO SCH (09:49)
[2018-06-03 10:45] LABS: ANISOCYTOSIS 1+; MACROCYTOSIS 0; PLATELET ESTIMATE NORMAL
--- NOTE | 2018-06-03 11:01 | CON.CARD ---
Cardiology Consult (text) - Consultation Consultation Note: CC: sob hpi: 77 yo f with h/o HTN, HL CVA (Rt hemiparesis), CKD, diastolic chf, IDDM, ROSITA, anemia, COPD, hypothyroid, obesity here with sob. No cp , palps dizzy loc pnd orthopnea le edema. Treating for pna/copd, feeling better so far. + bld cxs so cardio consulted for ?nick. no chills, sweats, headache, cough, congestion, rash, visual distrubance, gib, hematuria, dysuria pmhx/pshx: per hpi social hx: former smoker fam hx: no premature cad ros: per hpi Ambulatory Orders Home Medications Medication Instructions Recorded Albuterol Sulfate Inhaler - 1 - 2 inh PO QID #1 inhaler 06/02/18 [Ventolin HFA Inhaler -] Amlodipine Besylate [Norvasc -] 5 mg PO DAILY 06/02/18 Aspirin [ASA -] 81 mg PO DAILY 06/02/18 Atorvastatin Ca [Lipitor] 40 mg PO HS 06/02/18 Carvedilol [Coreg -] 25 mg PO BID 06/02/18 Duloxetine HCl 30 mg PO DAILY 06/02/18 Furosemide [Lasix] 80 mg PO BID 06/02/18 Isosorbide Mononitrate [Imdur -] 60 mg PO DAILY 06/02/18 Levothyroxine [Synthroid -] 75 mcg PO DAILY 06/02/18 Mirtazapine 15 mg PO DAILY 06/02/18 Montelukast Sodium [Singulair] 10 mg PO DAILY 06/02/18 Salmeterol/Fluticasone [Advair 1 inh IH DAILY #30 inh 06/02/18 100Mcg/50Mcg -] Sennosides [Senna] 8.6 mg PO PRN PRN #30 tablet 06/02/18 Insulin (Levemir) [Levemir Vial] 10 unit SQ DAILY #1 vial 06/03/18 Insulin (Levemir) [Levemir Vial] 32 unit SQ HS #1 vial 06/03/18 Insulin Aspart [Novolog] See Protocol SQ AC 06/03/18 Vital Signs Period Temp Pulse Resp BP Sys/Mike Pulse Ox Last 24 Hr 97.8 F-102.0 F 68-87 18-22 116-145/57-88 94 nad, no jvd cta bl nl eff RRR nl s1, s2 no mrg + bs soft nt nd obese no le e/c/c + dp/pt no carotid bruit aaox3 no jaundice, diaphoresis Laboratory Last Values WBC 13.5 K/mm3 (4.0-10.0) H 06/03/18 05:30 RBC 3.54 M/mm3 (3.60-5.2) L 06/03/18 05:30 Hgb 9.4 GM/dL (10.7-15.3) L 06/03/18 05:30 Hct 29.0 % (32.4-45.2) L 06/03/18 05:30 MCV 81.8 fl (80-96) 06/03/18 05:30 MCH 26.6 pg (25.7-33.7) 06/03/18 05:30 MCHC 32.5 g/dl (32.0-36.0) 06/03/18 05:30 RDW 17.6 % (11.6-15.6) H 06/03/18 05:30 Plt Count 138 K/MM3 (134-434) 06/03/18 05:30 MPV 9.6 fl (7.5-11.1) 06/03/18 05:30 Absolute Neuts (auto) 12.4 K/mm3 (1.5-8.0) H 06/03/18 05:30 Total Counted 100 06/02/18 07:35 Neutrophils % 91.4 % (42.8-82.8) H 06/03/18 05:30 Neutrophils % (Manual) 50.0 % (42.8-82.8) 06/02/18 07:35 Band Neutrophils % 39.0 % 06/02/18 07:35 Lymphocytes % 5.3 % (8-40) L D 06/03/18 05:30 Lymphocytes % (Manual) 3.0 % (8-40) L D 06/02/18 07:35 Monocytes % 3.0 % (3.8-10.2) L D 06/03/18 05:30 Monocytes % (Manual) 4 % (3.8-10.2) 06/02/18 07:35 Eosinophils % 0.0 % (0-4.5) D 06/03/18 05:30 Eosinophils % (Manual) 0.0 % (0-4.5) 06/01/18 23:45 Basophils % 0.3 % (0-2.0) 06/03/18 05:30 Basophils % (Manual) 2.0 % (0-2.0) 06/01/18 23:45 Myelocytes % (Man) 4 % (0-2) H 06/01/18 23:45 Promyelocytes % (Man) 0 % (0-2) 06/01/18 23:45 Blast Cells % (Manual) 0 % (0-0) 06/01/18 23:45 Nucleated RBC % 0 % (0-0) 06/03/18 05:30 Metamyelocytes 4 % (0-2) H D 06/02/18 07:35 Hypochromia 2+ 06/01/18 23:45 Platelet Estimate Decreased 06/01/18 23:45 Polychromasia 0 06/01/18 23:45 Poikilocytosis 1+ 06/01/18 23:45 Basophilic Stippling 2+ 06/01/18 23:45 Anisocytosis 2+ 06/01/18 23:45 Microcytosis 2+ 06/01/18 23:45 Macrocytosis 0 06/01/18 23:45 Tear Drop Cells 1+ 06/01/18 23:45 PT with INR 13.00 SEC (9.7-13.0) 06/01/18 23:45 INR 1.15 (0.83-1.09) H 06/01/18 23:45 PTT (Actin FS) 30.8 SECONDS (25.2-36.5) 06/01/18 23:45 Anticoagulation Therapy No Result Required. 06/02/18 03:52 Puncture Site Left radial 06/02/18 03:52 ABG pH 7.38 (7.35-7.45) 06/02/18 03:52 ABG pCO2 at Pt Temp 53.7 mmHg (35-45) H D 06/02/18 03:52 ABG pO2 at Pt Temp 95.5 mmHg (70-100) D 06/02/18 03:52 ABG HCO3 30.7 meq/L (22-26) H 06/02/18 03:52 ABG O2 Sat (Measured) 97.4 % (90-98.9) 06/02/18 03:52 ABG O2 Content 13.4 % vol (15-22) L 06/02/18 03:52 ABG Base Excess 5.1 meq/l (-2-2) H 06/02/18 03:52 Uziel Test Positive 06/02/18 03:52 VBG pH 7.38 (7.32-7.42) 06/01/18 23:45 POC VBG pCO2 53.1 mmHg (38-52) H 06/01/18 23:45 POC VBG pO2 78.7 mmHg (28-48) H D 06/01/18 23:45 Mixed VBG HCO3 31.0 meq/L (19-25) H 06/01/18 23:45 Carboxyhemoglobin 1.8 gm% (0.5-2.0) 06/02/18 03:52 Methemoglobin 1.8 % (0.4-1.5) H 06/02/18 03:52 O2 Delivery Device Bipap 06/02/18 03:52 Oxygen Flow Rate 40% 06/02/18 03:52 Vent Mode S/t 06/02/18 03:52 Vent Rate 14 06/02/18 03:52 Mechanical Rate No Result Required. 06/02/18 03:52 PEEP 0.0 cmH2O 06/02/18 03:52 Pressure Support Vent 12/6 06/02/18 03:52 Sodium 131 mmol/L (136-145) L 06/03/18 05:30 Potassium 4.0 mmol/L (3.5-5.1) 06/03/18 05:30 Chloride 89 mmol/L (98-107) L 06/03/18 05:30 Carbon Dioxide 30 mmol/L (21-32) 06/03/18 05:30 Anion Gap 12 MMOL/L (8-16) 06/03/18 05:30 BUN 82 mg/dL (7-18) H 06/03/18 05:30 Creatinine 2.8 mg/dL (0.55-1.02) H 06/03/18 05:30 Creat Clearance w eGFR 16.39 (>60) 06/03/18 05:30 POC Glucometer 304 UNITS (80-120) 06/03/18 06:16 Random Glucose 285 mg/dL (74-106) H 06/03/18 05:30 Lactic Acid 1.6 mmol/L (0.0-2.0) 06/02/18 01:15 Calcium 8.5 mg/dL (8.5-10.1) 06/03/18 05:30 Phosphorus 3.3 mg/dL (2.5-4.9) 06/03/18 05:30 Magnesium 2.7 mg/dL (1.8-2.4) H 06/03/18 05:30 Total Bilirubin 0.4 mg/dL (0.2-1.0) 06/03/18 05:30 AST 20 U/L (15-37) 06/03/18 05:30 ALT 18 U/L (12-78) 06/03/18 05:30 Alkaline Phosphatase 72 U/L (45-117) 06/03/18 05:30 Troponin I < 0.02 ng/ml (0.00-0.05) 06/02/18 07:35 B-Natriuretic Peptide 1074.36 pg/ml (5-450) H 06/02/18 01:15 Total Protein 6.6 g/dl (6.4-8.2) 06/03/18 05:30 Albumin 2.7 g/dl (3.4-5.0) L 06/03/18 05:30 Urine Color Yellow 06/02/18 02:25 Urine Appearance Cloudy 06/02/18 02:25 Urine pH 5.0 (5.0-8.0) 06/02/18 02:25 Ur Specific [place] 1.012 (1.001-1.035) 06/02/18 02:25 Urine Protein 2+ (NEGATIVE) H 06/02/18 02:25 Urine Glucose (UA) Negative (NEGATIVE) 06/02/18 02:25 Urine Ketones Negative (NEGATIVE) 06/02/18 02:25 Urine Blood 2+ (NEGATIVE) H 06/02/18 02:25 Urine Nitrite Negative (NEGATIVE) 06/02/18 02:25 Urine Bilirubin Negative (<2.0 mg/dL) 06/02/18 02:25 Urine Urobilinogen Negative mg/dL (0.2-1.0) 06/02/18 02:25 Ur Leukocyte Esterase Negative (NEGATIVE) 06/02/18 02:25 Urine WBC (Auto) <1 /hpf (3-5) 06/02/18 02:25 Urine RBC (Auto) 1 /hpf (0-3) 06/02/18 02:25 Ur Epithelial Cells Many /HPF (FEW) 06/02/18 02:25 Urine Bacteria Rare /hpf (NONE SEEN) 06/02/18 02:25 Hyaline Casts 2 /lpf 06/02/18 02:25 Urine Mucus Rare 06/02/18 02:25 Random Vancomycin 5.96 ug/ml 06/03/18 05:30 echo 03/2017: tds. grossly nl lv/rv. mac. TV/MV/PV not well seen. MAC, no mr , 1+ tr. no ar. nick 03/2017: nl lv/rv, mild mr, trace tr, no endocarditis ekg: sr, nl intervals, lat twis, no st changes, no sig change prior tele: sr ct chest: pna vs atx, no chf echo 05/2018: non diagnostic per report-->on my review: nl lvef, no mr/tr/ar, no as a/p: 77 yo with h/o HTN, HL CVA (Rt hemiparesis), CKD, diastolic chf, IDDM, ROSITA , anemia, COPD, hypothyroid, obesity here with sob. sob, pna, copd: -cont abx, steroids per PMD, sxs improving bacteremia: - had same in 03/2017, with same beta hemolytic strep. NICK 03/2017 without evidence of endocarditis. i reviewed current echo and there is no significant valvular regurgitations. - cont abx per ID. If repeat cxs remain positive or if ID has strong suspicion for endocarditis can repeat NICK. diastolic HF -stable, cont po lasix hld - on atorva htn -stable on current meds cva - on asa, statin CKD - stable rosita - on bipap at night
[2018-06-03] MEDS ORDERED: INSULIN (NOVOLOG) ASPART 100 UNITS/ML 10ML VIAL ONE ×2 (11:59→20:49)
[2018-06-03] MEDS: BUDESONIDE/FORMETEROL FUMARATE 160/4.5 mcg INHALER IH SCH ×2 (12:09→21:43)
--- NOTE | 2018-06-03 12:40 | PN ---
Progress Note, Physician History of Present Illness: PULMONARY ALERT,FEELING BETTER,COMFORTABLE,-RESP DISTRESS - Current Medication List Current Medications: Active Medications Acetaminophen (Tylenol -) 650 mg PO Q6H PRN PRN Reason: FEVER Last Admin: 06/02/18 18:15 Dose: 650 mg Albuterol Sulfate (Ventolin 0.083% Nebulizer Soln -) 1 amp NEB Q4H PRN PRN Reason: SHORT OF BREATH/WHEEZING Albuterol/Ipratropium (Duoneb -) 1 amp NEB RQID [facility] Last Admin: 06/03/18 11:15 Dose: 1 amp Albuterol/Ipratropium (Duoneb -) 1 amp NEB Q4H PRN PRN Reason: SHORTNESS OF BREATH Amlodipine Besylate (Norvasc -) 5 mg PO DAILY [facility] Last Admin: 06/03/18 09:49 Dose: 5 mg Aspirin (Asa -) 81 mg PO DAILY [facility] Last Admin: 06/03/18 09:49 Dose: 81 mg Atorvastatin Calcium (Lipitor -) 40 mg PO HS [facility] Last Admin: 06/02/18 21:31 Dose: 40 mg Budesonide/Formoterol Fumarate (Symbicort 160/4.5mcg -) 2 puff IH BID [facility] Last Admin: 06/03/18 12:09 Dose: 2 puff Carvedilol (Coreg -) 25 mg PO BID [facility] Last Admin: 06/03/18 09:49 Dose: 25 mg Duloxetine HCl (Cymbalta -) 30 mg PO DAILY [facility] Last Admin: 06/03/18 09:49 Dose: 30 mg Furosemide (Lasix -) 80 mg PO BID@0600,1400 [facility] Last Admin: 06/03/18 06:17 Dose: 80 mg Heparin Sodium (Porcine) (Heparin -) 5,000 unit SQ TID [facility] Last Admin: 06/03/18 06:18 Dose: 5,000 unit Ceftriaxone Sodium 2 gm/ (Dextrose) 100 mls @ 200 mls/hr IVPB Q24H [facility] Last Admin: 06/02/18 17:01 Dose: 200 mls/hr Insulin Aspart (Novolog Vial Sliding Scale -) 1 vial SQ ACHS [facility]; Protocol Last Admin: 06/03/18 12:09 Dose: 10 units Insulin Detemir (Levemir Vial) 10 units SQ DAILY@0700 [facility] Last Admin: 06/03/18 06:18 Dose: 10 units Insulin Detemir (Levemir Vial) 32 units SQ HS [facility] Isosorbide Mononitrate (Imdur -) 60 mg PO DAILY [facility] Last Admin: 06/03/18 09:49 Dose: 60 mg Levothyroxine Sodium (Synthroid -) 88 mcg PO 0700 [facility] Last Admin: 06/03/18 06:18 Dose: 88 mcg Methylprednisolone Sodium Succinate (Solu-Medrol -) 40 mg IVPUSH BID [facility] Mirtazapine (Remeron -) 15 mg PO HS [facility] Last Admin: 06/02/18 21:32 Dose: 15 mg Montelukast Sodium (Singulair -) 10 mg PO [facility] Last Admin: 06/02/18 21:31 Dose: 10 mg Pantoprazole Sodium (Protonix -) 40 mg PO DAILY [facility] Last Admin: 06/03/18 09:49 Dose: 40 mg Senna (Senna -) 2 tab PO HS PRN PRN Reason: CONSTIPATION Last Admin: 06/02/18 21:31 Dose: 2 tab - Objective Vital Signs: Vital Signs Temperature 97.8 F 06/03/18 05:00 Pulse Rate 68 06/03/18 05:00 Respiratory Rate 18 06/03/18 05:00 Blood Pressure 132/58 06/03/18 05:00 O2 Sat by Pulse Oximetry (%) 94 L 06/02/18 21:00 Constitutional: Yes: Calm, Obese Eyes: Yes: WNL HENT: Yes: WNL Neck: Yes: WNL Cardiovascular: Yes: Regular Rate and Rhythm, S1, S2 Respiratory: Yes: CTA Bilaterally Gastrointestinal: Yes: Normal Bowel Sounds, Soft Extremities: Yes: WNL Edema: Yes Labs: CBC, BMP 06/03/18 05:30 06/03/18 05:30 INR, PTT INR 1.15 (0.83-1.09) H 06/01/18 23:45 Problem List - Problems (1) Acute hypercapnic respiratory failure Code(s): J96.02 - ACUTE RESPIRATORY FAILURE WITH HYPERCAPNIA (2) COPD exacerbation Code(s): J44.1 - CHRONIC OBSTRUCTIVE PULMONARY DISEASE W (ACUTE) EXACERBATION (3) Morbid obesity Code(s): E66.01 - MORBID (SEVERE) OBESITY DUE TO EXCESS CALORIES (4) CKD (chronic kidney disease) Code(s): N18.9 - CHRONIC KIDNEY DISEASE, UNSPECIFIED Qualifiers: Chronic kidney disease stage: unspecified stage Qualified Code(s): N18.9 - Chronic kidney disease, unspecified (5) Anemia Code(s): D64.9 - ANEMIA, UNSPECIFIED Qualifiers: Iron deficiency anemia type: chronic blood loss (6) Asthma Code(s): J45.909 - UNSPECIFIED ASTHMA, UNCOMPLICATED (7) Diabetes Code(s): E11.9 - TYPE 2 DIABETES MELLITUS WITHOUT COMPLICATIONS (8) HTN (hypertension) Code(s): I10 - ESSENTIAL (PRIMARY) HYPERTENSION (9) Sleep apnea Code(s): G47.30 - SLEEP APNEA, UNSPECIFIED (10) CVA (cerebral vascular accident) Code(s): I63.9 - CEREBRAL INFARCTION, UNSPECIFIED (11) Acute respiratory failure with hypoxemia Code(s): J96.01 - ACUTE RESPIRATORY FAILURE WITH HYPOXIA (12) Pneumonia Code(s): J18.9 - PNEUMONIA, UNSPECIFIED ORGANISM Assessment/Plan IMP ACUTE HYPOXEMIC/HYPERCAPNEIC RESPIRATORY FAILURE BIBASILAR CONSOLIDATIONS PNEUMONIA/ATELECTASIS ASTHMA/COPD EXACERBATION TRACHEAL DENSITY LIKELY RETAINED SECRETIONS ROSITA CKD DM HTN MORBID OBESITY H/O CVA PLAN IV ABX STEROID TAPER INHALED BRONCHODILATORS O2 NIPPV NEEDED CULTURES F/U CHEST CT TO DOCUMENT RESOLUTION OF INFILTRATES,TRACHEAL LESION MONITOR LYTES,RENAL FUNCTION DR ZHU Problem List - Problems (1) Acute hypercapnic respiratory failure Code(s): J96.02 - ACUTE RESPIRATORY FAILURE WITH HYPERCAPNIA (2) COPD exacerbation Code(s): J44.1 - CHRONIC OBSTRUCTIVE PULMONARY DISEASE W (ACUTE) EXACERBATION (3) Morbid obesity Code(s): E66.01 - MORBID (SEVERE) OBESITY DUE TO EXCESS CALORIES (4) CKD (chronic kidney disease) Code(s): N18.9 - CHRONIC KIDNEY DISEASE, UNSPECIFIED Qualifiers: Chronic kidney disease stage: unspecified stage Qualified Code(s): N18.9 - Chronic kidney disease, unspecified (5) Anemia Code(s): D64.9 - ANEMIA, UNSPECIFIED Qualifiers: Iron deficiency anemia type: chronic blood loss (6) Asthma Code(s): J45.909 - UNSPECIFIED ASTHMA, UNCOMPLICATED (7) Diabetes Code(s): E11.9 - TYPE 2 DIABETES MELLITUS WITHOUT COMPLICATIONS (8) HTN (hypertension) Code(s): I10 - ESSENTIAL (PRIMARY) HYPERTENSION (9) Sleep apnea Code(s): G47.30 - SLEEP APNEA, UNSPECIFIED (10) CVA (cerebral vascular accident) Code(s): I63.9 - CEREBRAL INFARCTION, UNSPECIFIED (11) Acute respiratory failure with hypoxemia Code(s): J96.01 - ACUTE RESPIRATORY FAILURE WITH HYPOXIA (12) Pneumonia Code(s): J18.9 - PNEUMONIA, UNSPECIFIED ORGANISM
--- NOTE | 2018-06-03 12:47 | PN ---
Physical Exam: SUBJECTIVE: Patient seen and examined at bedside. Febrile yesterday afternoon 5PM at 102.0F and overnight at 100.6F. Resolved with Tylenol. Patient was on BiPAP FiO2 40% overnight, and 3L O2 nasal canula this morning. Denies chest pain , palpitations, shortness of breath, cough, chest pain, palpitations, nausea, vomiting, diarrhea. Discussed with at bedside today, and reviewed medications together. OBJECTIVE: Vital Signs Period Temp Pulse Resp BP Sys/Mike Pulse Ox Last 24 Hr 97.8 F-102.0 F 68-87 18-22 116-145/57-88 94 GENERAL: The patient is awake, alert, in no acute distress. HEAD: Normal with no signs of trauma. EYES: PERRL, extraocular movements intact, sclera anicteric. ENT: Oropharynx clear without exudates, moist mucous membranes. NECK: Supple withut lymphadenopathy. LUNGS: On 3L nasal canula. Breath sounds equal, end-expiratory wheezes still auscultated B/L lungs upper and lower lobes. No crackles appreciated. No accessory muscle use observed upon my exam this morning. HEART: Regular rate and rhythm, +S1, S2 auscultated without murmur, rub or gallop. ABDOMEN: Soft, nontender, nondistended, normoactive bowel sounds, no guarding, no rebound, no hepatosplenomegaly appreciated. EXTREMITIES: 2+ radial and 1+ DP pulses B/L. 3+ pitting edema right lower extremity. 1+ pitting edema left lower extremity. NEUROLOGICAL: LUE strength 3/5 for flexion, extension. RUE strength 2/5 for flexion, extension. LUE abducion strength 2/5. RUE abduction strength 1/5. LLE flexion, extension 2/5. RLE flexion strength 0/5. LLE extension strength 1/5. Dorsiflexion, plantaflexion RLE 1/5. Dorsiflexion, plantarflexion LLE 3/5. SKIN: Warm, dry. No rashes or lesions. Laboratory Results - last 24 hr 06/02/18 06/02/18 06/02/18 07:35 16:46 21:37 WBC RBC Hgb Hct MCV MCH MCHC RDW Plt Count MPV Absolute Neuts (auto) Total Counted 100 Neutrophils % Neutrophils % (Manual) 50.0 Band Neutrophils % 39.0 Lymphocytes % Lymphocytes % (Manual) 3.0 L D Monocytes % Monocytes % (Manual) 4 Eosinophils % Eosinophils % (Manual) Basophils % Basophils % (Manual) Myelocytes % (Man) Promyelocytes % (Man) Blast Cells % (Manual) Nucleated RBC % Metamyelocytes 4 H D Hypochromia Platelet Estimate Polychromasia Poikilocytosis Anisocytosis Microcytosis Macrocytosis Sodium Potassium Chloride Carbon Dioxide Anion Gap BUN Creatinine Creat Clearance w eGFR POC Glucometer 369 346 Random Glucose Calcium Phosphorus Magnesium Total Bilirubin AST ALT Alkaline Phosphatase Total Protein Albumin Random Vancomycin 06/03/18 06/03/18 06/03/18 05:30 05:30 05:30 WBC 13.5 H RBC 3.54 L Hgb 9.4 L Hct 29.0 L MCV 81.8 MCH 26.6 MCHC 32.5 RDW 17.6 H Plt Count 138 MPV 9.6 Absolute Neuts (auto) 12.4 H Total Counted Neutrophils % 91.4 H Neutrophils % (Manual) 56.6 Band Neutrophils % 27.4 Lymphocytes % 5.3 L D Lymphocytes % (Manual) 9.4 D Monocytes % 3.0 L D Monocytes % (Manual) 1 L Eosinophils % 0.0 D Eosinophils % (Manual) 0.0 Basophils % 0.3 Basophils % (Manual) 0.0 Myelocytes % (Man) 1 D Promyelocytes % (Man) 0 Blast Cells % (Manual) 0 Nucleated RBC % 0 Metamyelocytes 4 H Hypochromia 0 Platelet Estimate Normal Polychromasia 0 Poikilocytosis 0 Anisocytosis 1+ Microcytosis 0 Macrocytosis 0 Sodium 131 L Potassium 4.0 Chloride 89 L Carbon Dioxide 30 Anion Gap 12 BUN 82 H Creatinine 2.8 H Creat Clearance w eGFR 16.39 POC Glucometer Random Glucose 285 H Calcium 8.5 Phosphorus 3.3 Magnesium 2.7 H Total Bilirubin 0.4 AST 20 ALT 18 Alkaline Phosphatase 72 Total Protein 6.6 Albumin 2.7 L Random Vancomycin 5.96 06/03/18 06/03/18 06:16 11:49 WBC RBC Hgb Hct MCV MCH MCHC RDW Plt Count MPV Absolute Neuts (auto) Total Counted Neutrophils % Neutrophils % (Manual) Band Neutrophils % Lymphocytes % Lymphocytes % (Manual) Monocytes % Monocytes % (Manual) Eosinophils % Eosinophils % (Manual) Basophils % Basophils % (Manual) Myelocytes % (Man) Promyelocytes % (Man) Blast Cells % (Manual) Nucleated RBC % Metamyelocytes Hypochromia Platelet Estimate Polychromasia Poikilocytosis Anisocytosis Microcytosis Macrocytosis Sodium Potassium Chloride Carbon Dioxide Anion Gap BUN Creatinine Creat Clearance w eGFR POC Glucometer 304 312 Random Glucose Calcium Phosphorus Magnesium Total Bilirubin AST ALT Alkaline Phosphatase Total Protein Albumin Random Vancomycin Active Medications Generic Name Dose Route Start Last Admin Trade Name Freq PRN Reason Stop Dose Admin Acetaminophen 650 mg 06/02/18 17:51 06/02/18 18:15 Tylenol - PO 650 mg Q6H PRN Administration FEVER Albuterol Sulfate 1 amp 06/02/18 18:11 Ventolin 0.083% Nebulizer Soln - NEB Q4H PRN SHORT OF BREATH/WHEEZING Albuterol/Ipratropium 1 amp 06/02/18 08:00 06/03/18 11:15 Duoneb - NEB 1 amp RQID IWONA Administration Albuterol/Ipratropium 1 amp 06/02/18 04:53 Duoneb - NEB Q4H PRN SHORTNESS OF BREATH Amlodipine Besylate 5 mg 06/03/18 10:00 06/03/18 09:49 Norvasc - PO 5 mg DAILY IWONA Administration Aspirin 81 mg 06/02/18 10:00 06/03/18 09:49 Asa - PO 81 mg DAILY IWONA Administration Atorvastatin Calcium 40 mg 06/02/18 22:00 06/02/18 21:31 Lipitor - PO 40 mg HS IWONA Administration Budesonide/Formoterol Fumarate 2 puff 06/02/18 11:15 06/03/18 12:09 Symbicort 160/4.5mcg - IH 2 puff BID IWONA Administration Carvedilol 25 mg 06/02/18 22:00 06/03/18 09:49 Coreg - PO 25 mg BID IWONA Administration Duloxetine HCl 30 mg 06/03/18 10:00 06/03/18 09:49 Cymbalta - PO 30 mg DAILY I[facility] Administration Furosemide 80 mg 06/03/18 06:00 06/03/18 06:17 Lasix - PO 80 mg BID@0600,1400 IWONA Administration Heparin Sodium (Porcine) 5,000 unit 06/02/18 05:00 06/03/18 06:18 Heparin - SQ 5,000 unit TID I[facility] Administration Ceftriaxone Sodium 2 gm/ 100 mls @ 200 mls/hr 06/02/18 15:15 06/02/18 17:01 Dextrose IVPB 200 mls/hr Q24H IWONA Administration Insulin Aspart 1 vial 06/03/18 08:42 06/03/18 12:09 Novolog Vial Sliding Scale - SQ 10 units ACHS IWONA Administration Protocol Insulin Detemir 10 units 06/03/18 07:00 06/03/18 06:18 Levemir Vial SQ 10 units DAILY@0700 I[facility] Administration Insulin Detemir 32 units 06/03/18 22:00 Levemir Vial SQ HS [facility] Isosorbide Mononitrate 60 mg 06/03/18 10:00 06/03/18 09:49 Imdur - PO 60 mg DAILY [facility] Administration Levothyroxine Sodium 88 mcg 06/02/18 07:00 06/03/18 06:18 Synthroid - PO 88 mcg 0700 I[facility]ONA Administration Methylprednisolone Sodium Succinate 40 mg 06/03/18 22:00 Solu-Medrol - IVPUSH BID IOWNA Mirtazapine 15 mg 06/02/18 22:00 06/02/18 21:32 Remeron - PO 15 mg HS IWONA Administration Montelukast Sodium 10 mg 06/02/18 22:00 06/02/18 21:31 Singulair - PO 10 mg HS IWONA Administration Pantoprazole Sodium 40 mg 06/02/18 13:30 06/03/18 09:49 Protonix - PO 40 mg DAILY I[facility] Administration Senna 2 tab 06/02/18 18:27 06/02/18 21:31 Senna - PO 2 tab HS PRN Administration CONSTIPATION ASSESSMENT/PLAN: Patient is a 77 year old female with history of COPD (on overnight BiPAP at home ), asthma, obesity, chronic kidney disease, CVA with residual right-sided hemiparesis, coronary artery disease (s/p cardiac cath), HTN, HLD, DM, anemia (s /p past transfusions), presents with complaint of shortness of breath. Shortness of breath -Secondary to Community acquired Pneumonia vs. COPD/ asthma exacerbation -R/O ACS- EKG showed NSR without ischemic changes. Troponins negative X2. -May be due to COPD/asthma excerbation vs. left lower lobe pneumonia vs. ?CHF -Patient given Solumedrol, and Dunoebs in ED, placed on BiPAP with improvement -3L O2 nasal canula saturating 97%. BiPAP FiO2 40%, IPAP 12, EPAP 6, rate 14 PRN. -Chest Xray: weak inspiratory effort, questionable markings of left lung base -CT chest: No pleural effusions, no pneumonia identified. Dependent atelectesis in B/L lower lung lobes. -Continue Duo nebs Q4H and PRN -Changed Solu-medrol to 40mg BID -Continue Singulair 10mg PO HS -Blood cultures grow Beta-hemolytic Strep (preliminary) -Will F/U repeat blood cultures -ID consult (Dr. Rosado) appreciated: Ceftriaxone 2gm IV QD. Azithromycin 500mg IV QD. Patient was given one 1gm Vancomycin in ED. -Urine for strep pneumo and legionella antigen: negative -Pulmonology consult (Dr. Vick) appreciated: Will continue steroids, bronchodilators, and NIPPV. Will consider f/u CT scan to follow resolution of infiltrates. R/O Endocarditis -Cardiology consult (Dr. Herndon) appreciated: Patient had similar presentation on 03/2017 with beta hemolytic strep. VERONICA done at that time did not show evidence of endocarditis. Current echo shows no significant valvular regurgitation. Congestive heart failure -BNP 1074.36 -Reinstate home medication Lasix 80mg PO BID -Reinstate home medication Coreg 25mg PO BID -Cardiac echo shows poor study d/t poor visualization of LV, MV, TV. LVEF could not be calculated. regional wall abnormalities could not be excluded. -Strict daily Intake and Output Right lower extremity edema -Possibly due to fluid overload, secondary to CHF -3+ pitting edema today (left leg 1+ pitting edema) -R/O DVT: F/U lower extremity doppler Chronic kidney disease -BUN 78, Cr 2.7 today (2.3 baseline on prior admission) -Nephrology consult (Dr. Jaun Carlos) appreciated: renal function is stable. Will continue Lasix, steroids, and antibiotics. No indication at this time for 3 % saline for hyponatremia. HTN -Reinstate home medication Norvasc 5mg PO QD -Reinstate home medication Imdur 60mg PO QD Hypothyroidism -Continue home medication: Synthroid 88mcg QD DM -Levemir 10 units in AM, 42 units in evening. Confirmed with at bedside today. -Will hold tomorrow morning insulin, pending AM BGM. -Insulin sliding scale -Fingerstick BGM ACHS HLD -Continue home medication: Lipitor 40mg HS Constipation -Senna 2 tablets QD PRN FEN -No IV fluids at this time. Patient tolerates PO fluids -Will follow CMP -Diabetic, low salt, low cholesterol diet Prophylaxis -Heparin 5000u SQ TID Disposition: -Continue care in Telemetry floor. Visit type - Emergency Visit Emergency Visit: Yes ED Registration Date: 06/02/18 Care time: The patient presented to the Emergency Department on the above date and was hospitalized for further evaluation of their emergent condition. - New Patient This patient is new to me today: No - Critical Care Critical Care patient: No - Discharge Referral Referred to [facility] Med P.C.: No
[2018-06-03] MEDS ORDERED: DEXTROSE 5%-WATER 100 ML IVPB ONE (14:53)
[2018-06-03] MEDS: CEFTRIAXONE 2 GM in DEXTROSE 5%-WATER 100 ML IVPB SCH (15:31)
--- NOTE | 2018-06-03 16:06 | PN ---
Progress Note (short form) - Note Progress Note: Renal follow up for CKD pt seen and examined at the bedside no acute complaints no sob, cp, abd pain making urine Vital Signs Temperature 98.3 F 06/03/18 14:00 Pulse Rate 70 06/03/18 14:00 Respiratory Rate 18 06/03/18 05:00 Blood Pressure 114/61 06/03/18 14:00 O2 Sat by Pulse Oximetry (%) 94 L 06/02/18 21:00 Intake & Output 05/31/18 06/01/18 06/02/18 06/03/18 23:59 23:59 23:59 23:59 Intake Total 550 860 Output Total 1150 1000 Balance -600 -140 Weight 86.183 kg 86.183 kg 86.092 kg NAD awake and alert RRR, No M/R CTA, dec Bs at lung bases + edema in LE CBC, BMP 06/03/18 05:30 06/03/18 05:30 Current Medications Acetaminophen (Tylenol -) 650 mg PO Q6H PRN PRN Reason: FEVER Last Admin: 06/02/18 18:15 Dose: 650 mg Albuterol Sulfate (Ventolin 0.083% Nebulizer Soln -) 1 amp NEB Q4H PRN PRN Reason: SHORT OF BREATH/WHEEZING Albuterol/Ipratropium (Duoneb -) 1 amp NEB RQID [facility] Last Admin: 06/03/18 11:15 Dose: 1 amp Albuterol/Ipratropium (Duoneb -) 1 amp NEB Q4H PRN PRN Reason: SHORTNESS OF BREATH Amlodipine Besylate (Norvasc -) 5 mg PO DAILY [facility] Last Admin: 06/03/18 09:49 Dose: 5 mg Aspirin (Asa -) 81 mg PO DAILY [facility] Last Admin: 06/03/18 09:49 Dose: 81 mg Atorvastatin Calcium (Lipitor -) 40 mg PO HS [facility] Last Admin: 06/02/18 21:31 Dose: 40 mg Budesonide/Formoterol Fumarate (Symbicort 160/4.5mcg -) 2 puff IH BID [facility] Last Admin: 06/03/18 12:09 Dose: 2 puff Carvedilol (Coreg -) 25 mg PO BID [facility] Last Admin: 06/03/18 09:49 Dose: 25 mg Duloxetine HCl (Cymbalta -) 30 mg PO DAILY [facility] Last Admin: 06/03/18 09:49 Dose: 30 mg Furosemide (Lasix -) 80 mg PO BID@0600,1400 [facility] Last Admin: 06/03/18 13:24 Dose: 80 mg Heparin Sodium (Porcine) (Heparin -) 5,000 unit SQ TID [facility] Last Admin: 06/03/18 13:24 Dose: 5,000 unit Ceftriaxone Sodium 2 gm/ (Dextrose) 100 mls @ 200 mls/hr IVPB Q24H [facility] Last Admin: 06/03/18 15:31 Dose: 200 mls/hr Insulin Aspart (Novolog Vial Sliding Scale -) 1 vial SQ ACHS [facility]; Protocol Last Admin: 06/03/18 12:09 Dose: 10 units Insulin Detemir (Levemir Vial) 10 units SQ DAILY@0700 [facility] Last Admin: 06/03/18 06:18 Dose: 10 units Insulin Detemir (Levemir Vial) 32 units SQ HS [facility] Isosorbide Mononitrate (Imdur -) 60 mg PO DAILY [facility] Last Admin: 06/03/18 09:49 Dose: 60 mg Levothyroxine Sodium (Synthroid -) 88 mcg PO 0700 [facility] Last Admin: 06/03/18 06:18 Dose: 88 mcg Methylprednisolone Sodium Succinate (Solu-Medrol -) 40 mg IVPUSH BID [facility] Mirtazapine (Remeron -) 15 mg PO HS [facility] Last Admin: 06/02/18 21:32 Dose: 15 mg Montelukast Sodium (Singulair -) [address] 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
--- NOTE | 2018-06-03 16:46 | CON.ID ---
Consult - History of Present Illness History of Present Illness: Asked to evaluate this 77 y.o. female with PMH of morbid obesity, bedbound, Asthma/COPD, former smoker, ROSITA, DM, CKD, Anemia, CVA with hemiparesis presenting with c/o shortness of breath/cough/wheezing with fever/chills for the past 3 days. She was noted in the ER to be febrile 102F, with mild respiratory distress. Blood cultures reveal growth of beta hemolytic streptococcus. She has a previous history of streptococcal bacteremia approx one year ago with VERONICA negative for vegetations. Currently pt is afebrile, states she is feeling better on supplemental O2. Still with some shortness of breath but improved as per patient. Denies abd pain/n/v/d, dysuria, h/a, new focal deficits. - History Source History Provided By: Patient, Family Member Limitations to Obtaining History: No Limitations - Past Medical History TRAUMA COORDINATOR: Yes: CVA Cardio/Vascular: Yes: HTN, Hyperlipdemia Pulmonary: Yes: COPD Gastrointestinal: Yes: Constipation, GI Bleed Renal/: Yes: Renal Inusuff ...: No Endocrine: Yes: Diabetes Mellitus, Hypothyroidism - Alcohol/Substance Use Hx Alcohol Use: No - Smoking History Smoking history: Former smoker Have you smoked in the past 12 months: No Aproximately how many cigarettes per day: 0 If you are a former smoker, when did you quit?: 15 yrs ago - Social History Usual Living Arrangement: Other (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) ADL: Support Services History of Recent Travel: No Home Medications - Allergies Allergies/Adverse Reactions: Allergies Allergy/AdvReac Type Severity Reaction Status Date / Time codeine [Codeine] Allergy Severe Hives Verified 06/01/18 22:54 Iodine and Iodide Containing Allergy Verified 06/01/18 22:54 Produc nuts Allergy Mild Uncoded 04/05/17 12:15 - Home Medications Home Medications: Ambulatory Orders Albuterol Sulfate Inhaler - [Ventolin HFA Inhaler -] 1 - 2 inh PO QID #1 inhaler 06/02/18 Amlodipine Besylate [Norvasc -] 5 mg PO DAILY 06/02/18 Aspirin [ASA -] 81 mg PO DAILY 06/02/18 Atorvastatin Ca [Lipitor] 40 mg PO HS 06/02/18 Carvedilol [Coreg -] 25 mg PO BID 06/02/18 Duloxetine HCl 30 mg PO DAILY 06/02/18 Furosemide [Lasix] 80 mg PO BID 06/02/18 Isosorbide Mononitrate [Imdur -] 60 mg PO DAILY 06/02/18 Levothyroxine [Synthroid -] 75 mcg PO DAILY 06/02/18 Mirtazapine 15 mg PO DAILY 06/02/18 Montelukast Sodium [Singulair] 10 mg PO DAILY 06/02/18 Salmeterol/Fluticasone [Advair 100Mcg/50Mcg -] 1 inh IH DAILY #30 inh 06/02/18 Sennosides [Senna] 8.6 mg PO PRN PRN #30 tablet 06/02/18 Insulin (Levemir) [Levemir Vial] 10 unit SQ DAILY #1 vial 06/03/18 Insulin (Levemir) [Levemir Vial] 32 unit SQ HS #1 vial 06/03/18 Insulin Aspart [Novolog] See Protocol SQ AC 06/03/18 Family Disease History - Family Disease History Family Disease History: CA: Mother (Breast), Other: Father ( in an MVA) Review of Systems - Review of Systems Constitutional: reports: Chills, Fever. denies: No Symptoms, Diaphoresis, Lethargy, Loss of Appetite, Malaise, Night Sweats, Unintentional Wgt. Loss, Weakness, Other Eyes: reports: No Symptoms. denies: Blind Spots, Blurred Vision, Double Vision , Eye Pain, Floaters, Photophobia, Recent Change in Vision, Other HENT: reports: No Symptoms. denies: Difficult Swallowing, Ear Discharge, Ear Pain, Epistaxis, Gingival Bleeding, Hearing Loss, Mouth Swelling, Nasal Congestion, Ocular Prosthesis, Throat Pain, Toothache, Ringing in Ears, Other Neck: reports: No Symptoms. denies: Decreased ROM, Lumps, Pain on Movement, Stiffness, Swollen Glands, Tenderness, Other Cardiovascular: reports: No Symptoms. denies: Chest Pain, Edema, Palpitations, Shortness of Breath, Other Respiratory: reports: Cough, SOB, Wheezing Gastrointestinal: reports: No Symptoms. denies: Abdominal Pain, Bloating, Constipation, Diarrhea, Dysphagia, Indigestion, Melena, Nausea, Rectal Bleeding , Vomiting, Vomiting Blood, Other Genitourinary: reports: No Symptoms. denies: Burning, Discharge, Dysuria, Flank Pain, Frequency, Hematuria, Incontinence, Lesions, Menses, Pain, Testicular Mass, Testicular Pain, Testicular Swelling, Urgency, Vaginal Bleeding , Other Breasts: denies: No Symptoms Reported, See HPI, Breast Implants, Discharge from Nipple, Lumps, Pain, Skin Changes, Other Musculoskeletal: reports: No Symptoms. denies: Back Pain, Crepitus, Decreased ROM, Extremity Pain, Joint Pain, Joint Swelling, Muscle Pain, Muscle Cramps, Muscle Weakness, Other Integumentary: reports: No Symptoms. denies: Blister, Bruising, Change in Color , Eczema, Erythema, Incision, Lesions, Lump, Pallor, Pruritis, Rash, Wound, Other Neurological: reports: No Symptoms. denies: Change in LOC, Change in Speech, Confusion, Dizziness, Headache, Incoordination, Numbness, Parasthesia, Pre- Existing Deficit, Seizure, Syncope, Tremors, Unsteady Gait, Weakness, Other Endocrine: reports: No Symptoms. denies: Excessive Sweating, Flushing, Increased Hunger, Increased Thirst, Intolerance to Cold, Intolerance to Heat, Unexplained Weight Gain, Unexplained Weight Loss, Other Hematology/Lymphatic: reports: No Symptoms. denies: Easily Bruised, Excessive Bleeding, Swollen Glands, Other Psychiatric: reports: No Symptoms Physical Exam Vital Signs: Vital Signs Temperature 98.3 F 06/03/18 14:00 Pulse Rate 70 06/03/18 14:00 Respiratory Rate 06/03/18 10:00 Blood Pressure 114/61 06/03/18 14:00 O2 Sat by Pulse Oximetry (%) 94 L 06/02/18 21:00 Constitutional: Yes: No Distress, Calm Eyes: Yes: WNL HENT: Yes: Atraumatic, Normocephalic Neck: Yes: Supple Cardiovascular: Yes: Regular Rate and Rhythm Respiratory: Yes: Diminished, Wheezes Gastrointestinal: Yes: Normal Bowel Sounds, Soft, Abdomen, Obese Renal/: Yes: Foster Present Extremities: Yes: WNL Edema: LLE: 2+, RLE: 3+ Peripheral Pulses WNL: Yes Integumentary: Yes: WNL Neurological: Yes: Alert, Oriented Labs: CBC, BMP 06/03/18 05:30 06/03/18 05:30 Microbiology 06/01/18 23:45 Blood - Peripheral Venous Blood Culture - Preliminary Beta Hemolytic Strep 06/02/18 19:30 Urine For Antigen Detection Legionella Antigen - Final 06/02/18 19:30 Urine For Antigen Detection Streptococcus pneumoniae Antigen (M - Final 06/01/18 23:45 Blood - Peripheral Venous Blood Culture - Preliminary Beta Hemolytic Strep 06/02/18 02:25 Urine - Urine - Catheterized Urine Culture - Final NO GROWTH OBTAINED Imaging - Results Chest X-ray: Report Reviewed Cat Scan: Report Reviewed Other: Report Reviewed (TTE) Problem List - Problems (1) Acute hypercapnic respiratory failure Code(s): J96.02 - ACUTE RESPIRATORY FAILURE WITH HYPERCAPNIA (2) COPD exacerbation Code(s): J44.1 - CHRONIC OBSTRUCTIVE PULMONARY DISEASE W (ACUTE) EXACERBATION (3) Hemiplegia affecting dominant side Code(s): G81.90 - HEMIPLEGIA, UNSPECIFIED AFFECTING UNSPECIFIED SIDE (4) Morbid obesity Code(s): E66.01 - MORBID (SEVERE) OBESITY DUE TO EXCESS CALORIES (5) Pneumonia Code(s): J18.9 - PNEUMONIA, UNSPECIFIED ORGANISM (6) Swelling of right lower extremity Code(s): M79.89 - OTHER SPECIFIED SOFT TISSUE DISORDERS (7) CKD (chronic kidney disease) Code(s): N18.9 - CHRONIC KIDNEY DISEASE, UNSPECIFIED Qualifiers: Chronic kidney disease stage: unspecified stage Qualified Code(s): N18.9 - Chronic kidney disease, unspecified (8) Anemia Code(s): D64.9 - ANEMIA, UNSPECIFIED Qualifiers: Iron deficiency anemia type: chronic blood loss (9) HTN (hypertension) Code(s): I10 - ESSENTIAL (PRIMARY) HYPERTENSION (10) Leukocytosis Code(s): D72.829 - ELEVATED WHITE BLOOD CELL COUNT, UNSPECIFIED (11) Sepsis Code(s): A41.9 - SEPSIS, UNSPECIFIED ORGANISM Qualifiers: Sepsis type: Escherichia coli Qualified Code(s): A41.51 - Sepsis due to Escherichia coli [E. coli] (12) CVA (cerebral vascular accident) Code(s): I63.9 - CEREBRAL INFARCTION, UNSPECIFIED Assessment/Plan 77 y.o. female with PMH of DM, HTN, HLD, Asthma, COPD, CKD, CVA presenting with SOB, cough/wheezing, fever for 3 days Streptococcal Bacteremia/Sepsis Acute hypoxemic respiratory failure Bibasilar PNA COPD exacerbation DM Morbid Obesity CKD HTN HLD --continue Ceftriaxone, will add Azithromycin -- repeat blood cultures pending, if remains positive will suggest VERONICA -- on steroids, supplemental O2 -- monitor temperature trend/vitals -- Pulmonary/Renal/Cardiology following -- will f/u Thank you
[2018-06-03] MEDS: AZITHROMYCIN IVPB 500 MG in DEXTROSE 5%-WATER - 250 ML IVPB SCH (17:48)
[2018-06-03] MEDS: MONTELUKAST NA 10 MG TABLET PO SCH (21:27)
[2018-06-03] MEDS: SENNOSIDES 8.6MG TABLET (FP) PO PRN (21:27)
[2018-06-03] MEDS: MIRTAZAPINE 15 MG TABLET (FP) PO SCH (21:27)
[2018-06-03] MEDS: ATORVASTATIN CA 40 MG TABLET (FP) PO SCH (21:27)
[2018-06-03] MEDS: INSULIN (LEVEMIR) 100 UNITS/ML UNITS SQ SCH (21:29)
[2018-06-04] MEDS: LEVOTHYROXINE NA 88 MCG TABLET (FP) PO SCH (06:02)
[2018-06-04] MEDS: FUROSEMIDE 40 MG TABLET (FP) PO SCH ×2 (06:02→14:44)
[2018-06-04] MEDS: HEPARIN NA (PORCINE) 5,000 UNITS/ML 1ML VIAL SQ SCH ×3 (06:04→21:44)
[2018-06-04] MEDS: INSULIN SLIDING SCALE (NOVOLOG) 1 VIAL SQ SCH ×5 (06:09→21:44)
[2018-06-04 06:15] LABS: BASO % 0.1 % (0-2.0); HEMATOCRIT 28.4 % (32.4-45.2); HEMOGLOBIN 9.3 GM/dL (10.7-15.3); LYMPH % 5.9 % (8-40); MCH 26.6 pg (25.7-33.7); MCHC 32.6 g/dl (32.0-36.0); MEAN CELL VOLUME 81.6 fl (80-96); MEAN PLT VOLUME 9.6 fl (7.5-11.1); MONO % 2.8 % (3.8-10.2); NEUT % 91.2 % (42.8-82.8); PLATELET COUNT 152 K/MM3 (134-434); RBC 3.48 M/mm3 (3.60-5.2); RDW 17.4 % (11.6-15.6); WHITE BLOOD COUNT 12.8 K/mm3 (4.0-10.0)
[2018-06-04] MEDS: INSULIN (LEVEMIR) 100 UNITS/ML UNITS SQ SCH ×2 (06:38→21:44)
[2018-06-04 06:45] LABS: ALBUMIN 2.7 g/dl (3.4-5.0); ALK PHOS 75 U/L (45-117); ANION GAP 13 MMOL/L (8-16); BILIRUBIN,TOTAL 0.3 mg/dL (0.2-1.0); BLOOD UREA NITROGEN 87 mg/dL (7-18); CALCIUM 8.7 mg/dL (8.5-10.1); CHLORIDE 89 mmol/L (98-107); CO2 28 mmol/L (21-32); CREATININE 2.8 mg/dL (0.55-1.02); GLUCOSE,RANDOM 281 mg/dL (74-106); MAGNESIUM 2.6 mg/dL (1.8-2.4); PHOSPHOROUS 3.5 mg/dL (2.5-4.9); SGOT/AST 11 U/L (15-37); SGPT/ALT 15 U/L (12-78); SODIUM 130 mmol/L (136-145); TOT PROT 6.6 g/dl (6.4-8.2)
[2018-06-04] MEDS: ALBUTEROL SO4 2.5/IPRATROPIUM 0.5 INH SOL 3 ML VIAL.NEB. NEB SCH ×4 (07:40→22:10)
[2018-06-04 08:19] LABS: ANISOCYTOSIS 1+; PLATELET ESTIMATE ADEQUATE
[2018-06-04] MEDS: BUDESONIDE/FORMETEROL FUMARATE 160/4.5 mcg INHALER IH SCH ×2 (09:25→21:43)
[2018-06-04] MEDS: ASPIRIN 81 MG CHEWABLE TABLETS PO SCH (09:26)
[2018-06-04] MEDS: CARVEDILOL 25 MG TABLET (FP) PO SCH ×2 (09:26→21:43)
[2018-06-04] MEDS: ISOSORBIDE MONONITRATE 60 MG TAB.SR.24H (FP) PO SCH (09:26)
[2018-06-04] MEDS: DULoxetine HCL 30 MG CAPSULE.DR (FP) PO SCH (09:26)
[2018-06-04] MEDS: methylPREDNISolone NA SUCC 40 MG/1 ML VIAL IVPUSH SCH ×2 (09:26→21:44)
[2018-06-04] MEDS: amLODIPine BESYLATE 5 MG TABLET (FP) PO SCH (09:26)
[2018-06-04] MEDS: PANTOPRAZOLE 40 MG TABLET (FP) PO SCH (09:27)
[2018-06-04] MEDS: AZITHROMYCIN IVPB 500 MG in DEXTROSE 5%-WATER - 250 ML IVPB SCH (09:27)
--- NOTE | 2018-06-04 10:12 | PN ---
Progress Note (short form) - Note Progress Note: s: no cp sob palps dizzy o: Vital Signs Period Temp Pulse Resp BP Sys/Mike Pulse Ox Last 24 Hr 97.6 F-98.6 F 68-72 17-20 114-139/61-77 96-97 nad, no jvd cta bl nl eff RRR nl s1, s2 no mrg + bs soft nt nd obese no le e/c/c aaox3 no jaundice, diaphoresis Current Medications Generic Name Dose Route Start Last Admin Trade Name Freq PRN Reason Stop Dose Admin Acetaminophen 650 mg 06/02/18 17:51 06/02/18 18:15 Tylenol - PO 650 mg Q6H PRN Administration FEVER Albuterol Sulfate 1 amp 06/02/18 18:11 Ventolin 0.083% Nebulizer Soln - NEB Q4H PRN SHORT OF BREATH/WHEEZING Albuterol/Ipratropium 1 amp 06/02/18 08:00 06/03/18 21:17 Duoneb - NEB 1 amp RQID [facility] Administration Albuterol/Ipratropium 1 amp 06/02/18 04:53 Duoneb - NEB Q4H PRN SHORTNESS OF BREATH Amlodipine Besylate 5 mg 06/03/18 10:00 06/04/18 09:26 Norvasc - PO 5 mg DAILY [facility] Administration Aspirin 81 mg 06/02/18 10:00 06/04/18 09:26 Asa - PO 81 mg DAILY [facility] Administration Atorvastatin Calcium 40 mg 06/02/18 22:00 06/03/18 21:27 Lipitor - PO 40 mg HS [facility] Administration Budesonide/Formoterol Fumarate 2 puff 06/02/18 11:15 06/04/18 09:25 Symbicort 160/4.5mcg - IH 2 puff BID [facility] Administration Carvedilol 25 mg 06/02/18 22:00 06/04/18 09:26 Coreg - PO 25 mg BID [facility] Administration Duloxetine HCl 30 mg 06/03/18 10:00 06/04/18 09:26 Cymbalta - PO 30 mg DAILY [facility] Administration Furosemide 80 mg 06/03/18 06:00 06/04/18 06:02 Lasix - PO 80 mg BID@0600,1400 [facility] Administration Heparin Sodium (Porcine) 5,000 unit 06/02/18 05:00 06/04/18 06:04 Heparin - SQ Not Given TID [facility] Ceftriaxone Sodium 2 gm/ 100 mls @ 200 mls/hr 06/02/18 15:15 06/03/18 15:31 Dextrose IVPB 200 mls/hr Q24H [facility] Administration Azithromycin 500 mg/ Dextrose 250 mls @ 250 mls/hr 06/03/18 17:00 06/04/18 09 :27 IVPB 250 mls/hr DAILY [facility] Administration Insulin Aspart 1 vial 06/03/18 22:00 06/04/18 06:09 Novolog Vial Sliding Scale - SQ 6 unit ACHS [facility] Administration Protocol Insulin Detemir 42 units 06/03/18 22:00 06/03/18 21:29 Levemir Vial SQ 42 units HS [facility] Administration Insulin Detemir 10 units 06/04/18 07:00 06/04/18 06:38 Levemir Vial SQ 10 units DAILY@0700 [facility] Administration Isosorbide Mononitrate 60 mg 06/03/18 10:00 06/04/18 09:26 Imdur - PO 60 mg DAILY [facility] Administration Levothyroxine Sodium 88 mcg 06/02/18 07:00 06/04/18 06:02 Synthroid - PO 88 mcg 0700 [facility] Administration Methylprednisolone Sodium Succinate 40 mg 06/03/18 22:00 06/04/18 09:26 Solu-Medrol - IVPUSH 40 mg BID [facility] Administration Mirtazapine 15 mg 06/02/18 22:00 06/03/18 21:27 Remeron - PO 15 mg HS [facility] Administration Montelukast Sodium 10 mg 06/02/18 22:00 06/03/18 21:27 Singulair - PO 10 mg HS [facility] Administration Pantoprazole Sodium 40 mg 06/02/18 13:30 06/04/18 09:27 Protonix - PO 40 mg DAILY [facility] Administration Senna 2 tab 06/02/18 18:27 06/03/18 21:27 Senna - PO 2 tab HS PRN Administration CONSTIPATION CBC, BMP 06/04/18 05:30 06/04/18 05:30 Microbiology 06/03/18 05:30 Blood - Peripheral Venous Blood Culture - Preliminary NO GROWTH OBTAINED AFTER 24 HOURS, INCUBATION TO CONTINUE FOR 4 DAYS. 06/03/18 06:00 Blood - Peripheral Venous Blood Culture - Preliminary NO GROWTH OBTAINED AFTER 24 HOURS, INCUBATION TO CONTINUE FOR 4 DAYS. 06/01/18 23:45 Blood - Peripheral Venous Blood Culture - Preliminary Beta Hemolytic Strep 06/02/18 19:30 Urine For Antigen Detection Legionella Antigen - Final 06/02/18 19:30 Urine For Antigen Detection Streptococcus pneumoniae Antigen (M - Final 06/01/18 23:45 Blood - Peripheral Venous Blood Culture - Preliminary Beta Hemolytic Strep 06/02/18 02:25 Urine - Urine - Catheterized Urine Culture - Final NO GROWTH OBTAINED echo 03/2017: tds. grossly nl lv/rv. mac. TV/MV/PV not well seen. MAC, no mr , 1+ tr. no ar. nick 03/2017: nl lv/rv, mild mr, trace tr, no endocarditis ekg: sr, nl intervals, lat twis, no st changes, no sig change prior tele: sr ct chest: pna vs atx, no chf echo 05/2018: non diagnostic per report-->on my review: nl lvef, no mr/tr/ar, no as a/p: 77 yo with h/o HTN, HL CVA (Rt hemiparesis), CKD, diastolic chf, IDDM, ROSITA , anemia, COPD, hypothyroid, obesity here with sob. sob, pna, copd: -cont abx, steroids per PMD, sxs improving bacteremia: - had same in 03/2017, with same beta hemolytic strep. NICK 03/2017 without evidence of endocarditis. i reviewed current echo and there is no significant valvular regurgitations. - cont abx per ID. If repeat cxs remain positive or if ID has strong suspicion for endocarditis can repeat NICK. diastolic HF -stable, cont po lasix hld - on atorva htn -stable on current meds cva - on asa, statin CKD - stable rosita - on bipap at night
--- NOTE | 2018-06-04 12:04 | PN ---
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
[2018-06-04] MEDS ORDERED: AZITHROMYCIN IVPB 500 MG in SODIUM CHLORIDE 250 ML IVPB SCH (12:08)
--- NOTE | 2018-06-04 13:12 | PN ---
Progress Note, Physician History of Present Illness: Pt states she feels better, breathing better. Currently afebrile, has occasional chills. Has no other specific complaints. - Current Medication List Current Medications: Active Medications Acetaminophen (Tylenol -) 650 mg PO Q6H PRN PRN Reason: FEVER Last Admin: 06/02/18 18:15 Dose: 650 mg Albuterol Sulfate (Ventolin 0.083% Nebulizer Soln -) 1 amp NEB Q4H PRN PRN Reason: SHORT OF BREATH/WHEEZING Albuterol/Ipratropium (Duoneb -) 1 amp NEB RQID [facility] Last Admin: 06/04/18 11:39 Dose: 1 amp Albuterol/Ipratropium (Duoneb -) 1 amp NEB Q4H PRN PRN Reason: SHORTNESS OF BREATH Amlodipine Besylate (Norvasc -) 5 mg PO DAILY [facility] Last Admin: 06/04/18 09:26 Dose: 5 mg Aspirin (Asa -) 81 mg PO DAILY [facility] Last Admin: 06/04/18 09:26 Dose: 81 mg Atorvastatin Calcium (Lipitor -) 40 mg PO HS [facility] Last Admin: 06/03/18 21:27 Dose: 40 mg Azithromycin (Zithromax -) 250 mg PO DAILY [facility] Budesonide/Formoterol Fumarate (Symbicort 160/4.5mcg -) 2 puff IH BID [facility] Last Admin: 06/04/18 09:25 Dose: 2 puff Carvedilol (Coreg -) 25 mg PO BID [facility] Last Admin: 06/04/18 09:26 Dose: 25 mg Duloxetine HCl (Cymbalta -) 30 mg PO DAILY [facility] Last Admin: 06/04/18 09:26 Dose: 30 mg Furosemide (Lasix -) 80 mg PO BID@0600,1400 [facility] Last Admin: 06/04/18 06:02 Dose: 80 mg Heparin Sodium (Porcine) (Heparin -) 5,000 unit SQ TID [facility] Last Admin: 06/04/18 06:04 Dose: Not Given Ceftriaxone Sodium 2 gm/ (Sodium Chloride) 100 mls @ 200 mls/hr IVPB Q24H [facility] Insulin Aspart (Novolog Vial Sliding Scale -) 1 vial SQ ACHS [facility]; Protocol Last Admin: 06/04/18 11:54 Dose: 12 units Insulin Detemir (Levemir Vial) 42 units SQ HS [facility] Last Admin: 06/03/18 21:29 Dose: 42 units Insulin Detemir (Levemir Vial) 10 units SQ DAILY@0700 [facility] Last Admin: 06/04/18 06:38 Dose: 10 units Isosorbide Mononitrate (Imdur -) 60 mg PO DAILY [facility] Last Admin: 06/04/18 09:26 Dose: 60 mg Levothyroxine Sodium (Synthroid -) 88 mcg PO 0700 [facility] Last Admin: 06/04/18 06:02 Dose: 88 mcg Methylprednisolone Sodium Succinate (Solu-Medrol -) 40 mg IVPUSH BID [facility] Last Admin: 06/04/18 09:26 Dose: 40 mg Mirtazapine (Remeron -) 15 mg PO [facility] Last Admin: 06/03/18 21:27 Dose: 15 mg Montelukast Sodium (Singulair -) 10 mg PO [facility] Last Admin: 06/03/18 21:27 Dose: 10 mg Pantoprazole Sodium (Protonix -) 40 mg PO DAILY [facility] Last Admin: 06/04/18 09:27 Dose: 40 mg Senna (Senna -) 2 tab PO PRN PRN Reason: CONSTIPATION Last Admin: 06/03/18 21:27 Dose: 2 tab - Objective Vital Signs: Vital Signs Temperature 97.6 F 06/04/18 08:01 Pulse Rate 72 06/04/18 08:01 Respiratory Rate 17 06/04/18 08:07 Blood Pressure 139/77 06/04/18 08:01 O2 Sat by Pulse Oximetry (%) 97 06/04/18 09:35 Constitutional: Yes: No Distress, Calm Cardiovascular: Yes: Regular Rate and Rhythm Respiratory: Yes: Diminished (bases) Gastrointestinal: Yes: Normal Bowel Sounds, Soft, Abdomen, Obese Genitourinary: Yes: WNL Edema: Yes (LE) Integumentary: Yes: WNL Neurological: Yes: Alert Labs: CBC, BMP 06/04/18 05:30 06/04/18 05:30 INR, PTT INR 1.15 (0.83-1.09) H 06/01/18 23:45 Microbiology 06/01/18 23:45 Blood - Peripheral Venous Blood Culture - Final Beta Hem Streptococcus Group G 06/03/18 05:30 Blood - Peripheral Venous Blood Culture - Preliminary NO GROWTH OBTAINED AFTER 24 HOURS, INCUBATION TO CONTINUE FOR 4 DAYS. 06/03/18 06:00 Blood - Peripheral Venous Blood Culture - Preliminary NO GROWTH OBTAINED AFTER 24 HOURS, INCUBATION TO CONTINUE FOR 4 DAYS. 06/02/18 19:30 Urine For Antigen Detection Legionella Antigen - Final 06/02/18 19:30 Urine For Antigen Detection Streptococcus pneumoniae Antigen (M - Final 06/01/18 23:45 Blood - Peripheral Venous Blood Culture - Preliminary Beta Hemolytic Strep 06/02/18 02:25 Urine - Urine - Catheterized Urine Culture - Final NO GROWTH OBTAINED - ....Imaging Chest X-ray: Report Reviewed Cat Scan: Report Reviewed Problem List - Problems (1) Acute hypercapnic respiratory failure Code(s): J96.02 - ACUTE RESPIRATORY FAILURE WITH HYPERCAPNIA (2) COPD exacerbation Code(s): J44.1 - CHRONIC OBSTRUCTIVE PULMONARY DISEASE W (ACUTE) EXACERBATION (3) Hemiplegia affecting dominant side Code(s): G81.90 - HEMIPLEGIA, UNSPECIFIED AFFECTING UNSPECIFIED SIDE (4) Morbid obesity Code(s): E66.01 - MORBID (SEVERE) OBESITY DUE TO EXCESS CALORIES (5) Pneumonia Code(s): J18.9 - PNEUMONIA, UNSPECIFIED ORGANISM (6) Swelling of right lower extremity Code(s): M79.89 - OTHER SPECIFIED SOFT TISSUE DISORDERS (7) CKD (chronic kidney disease) Code(s): N18.9 - CHRONIC KIDNEY DISEASE, UNSPECIFIED Qualifiers: Chronic kidney disease stage: unspecified stage Qualified Code(s): N18.9 - Chronic kidney disease, unspecified (8) Anemia Code(s): D64.9 - ANEMIA, UNSPECIFIED Qualifiers: Iron deficiency anemia type: chronic blood loss (9) HTN (hypertension) Code(s): I10 - ESSENTIAL (PRIMARY) HYPERTENSION (10) Leukocytosis Code(s): D72.829 - ELEVATED WHITE BLOOD CELL COUNT, UNSPECIFIED (11) Sepsis Code(s): A41.9 - SEPSIS, UNSPECIFIED ORGANISM Qualifiers: Sepsis type: Escherichia coli Qualified Code(s): A41.51 - Sepsis due to Escherichia coli [E. coli] (12) CVA (cerebral vascular accident) Code(s): I63.9 - CEREBRAL INFARCTION, UNSPECIFIED Assessment/Plan 77 y.o. female with PMH of DM, HTN, HLD, Asthma, COPD, CKD, CVA presenting with SOB, cough/wheezing, fever for 3 days Streptococcal Bacteremia/Sepsis Acute hypoxemic respiratory failure Bibasilar PNA COPD exacerbation DM Morbid Obesity CKD HTN HLD --continue Ceftriaxone IV,azithromycin po -- repeat blood cultures neg. 24hrs, continue to follow -- on steroids, supplemental O2 -- monitor temperature trend/vitals -- Pulmonary/Renal/Cardiology following -- will f/u
[2018-06-04] MEDS ORDERED: SODIUM CHLORIDE 100 ML IVPB ONE (14:27)
--- NOTE | 2018-06-04 15:10 | PN ---
Teaching Attending Note Name of Resident: Parveen Leonard ATTENDING PHYSICIAN STATEMENT I saw and evaluated the patient. I reviewed the resident's note and discussed the case with the resident. I agree with the resident's findings and plan as documented. SUBJECTIVE: No fever or chills . No abd pain, NO cough. SOb is much better OBJECTIVE: NAD , CV: RRR, no JVD Lungs :good air entry . clear lungs . Abd : soft, NT, ND, NL BS Ext: b/l LE edema with pitting. R > L A/P 76-year-old female with history of CVA (residual R-hemiparesis, slurred speech) , DM Type II, COPD, CKD Stage 4, Pneumonia, PVD, HTN, Chronic R- lower extremity edema, diastolic heart failure , recent LE cellulites , and bacteremia who presented with SOB and was found tohave acute hypercapnic resp failure 1- Acute hyypoxic hypercapnic resp failure due to acute COPD exacerbation. likely trigger is PNA . doing well on 3 L of O2 via NC - Steroids taper. hopefully can do oral tomorrow - cont symbicort - cont nebs - cont singular - Abx for PNA 2- B hemolytic strep bacteremia : - Cont ceftriaxone, and azithro - No need for VERONICA per card - follow repeat Blood cx 3- tracheal lesion : need repeat CT to evaluate 4- DM : - cont levemir and SSI 5- h/o CKD: cr at base line 6- h/o Diastolic heart failure . not in exacerbation - cont home dose of lasix at 80 BID orally 7- HTN : cont imdur, coreg, and norvasc Dispo: HLOC
--- NOTE | 2018-06-04 15:21 | PN ---
Physical Exam: SUBJECTIVE: Patient seen and examined at bedside. Afebrile overnight. Patient was on 3L O2 nasal canula this morning. Denies chest pain, palpitations, shortness of breath, cough, chest pain, palpitations, nausea, vomiting, diarrhea. OBJECTIVE: Vital Signs Period Temp Pulse Resp BP Sys/Mike Pulse Ox Last 24 Hr 97.6 F-98.6 F 67-72 17-20 118-141/62-77 96-97 GENERAL: The patient is awake, alert, in no acute distress. HEAD: Normal with no signs of trauma. EYES: PERRL, extraocular movements intact, sclera anicteric. ENT: Oropharynx clear without exudates, moist mucous membranes. NECK: Supple withut lymphadenopathy. LUNGS: On 3L nasal canula. Breath sounds equal, end-expiratory wheezes still auscultated B/L lungs upper and lower lobes. No crackles appreciated. No accessory muscle use observed upon my exam this morning. HEART: Regular rate and rhythm, +S1, S2 auscultated without murmur, rub or gallop. ABDOMEN: Soft, nontender, nondistended, normoactive bowel sounds, no guarding, no rebound, no hepatosplenomegaly appreciated. EXTREMITIES: 2+ radial and 1+ DP pulses B/L. 3+ pitting edema right lower extremity. 1+ pitting edema left lower extremity. NEUROLOGICAL: LUE strength 3/5 for flexion, extension. RUE strength 2/5 for flexion, extension. LUE abducion strength 2/5. RUE abduction strength 1/5. LLE flexion, extension 2/5. RLE flexion strength 1/5. LLE extension strength 1/5. Dorsiflexion, plantaflexion RLE 1/5. Dorsiflexion, plantarflexion LLE 4/5. SKIN: Warm, dry. No rashes or lesions. Laboratory Results - last 24 hr 06/03/18 06/03/18 06/03/18 06:00 17:45 21:22 WBC RBC Hgb Hct MCV MCH MCHC RDW Plt Count MPV Absolute Neuts (auto) Total Counted Neutrophils % Neutrophils % (Manual) Lymphocytes % Lymphocytes % (Manual) Monocytes % Monocytes % (Manual) Eosinophils % Eosinophils % (Manual) Basophils % Nucleated RBC % Platelet Estimate Platelet Comment Anisocytosis Microcytosis Sodium Potassium Chloride Carbon Dioxide Anion Gap BUN Creatinine Creat Clearance w eGFR POC Glucometer 283 306 Random Glucose Calcium Phosphorus Magnesium Ferritin 1262.5 H Total Bilirubin AST ALT Alkaline Phosphatase Total Protein Albumin 06/04/18 06/04/18 06/04/18 05:30 05:30 06:05 WBC 12.8 H RBC 3.48 L Hgb 9.3 L Hct 28.4 L MCV 81.6 MCH 26.6 MCHC 32.6 RDW 17.4 H Plt Count 152 MPV 9.6 Absolute Neuts (auto) 11.7 H Total Counted 100 Neutrophils % 91.2 H Neutrophils % (Manual) 82.0 Lymphocytes % 5.9 L Lymphocytes % (Manual) 12.0 D Monocytes % 2.8 L Monocytes % (Manual) 4 D Eosinophils % 0.0 Eosinophils % (Manual) 2.0 D Basophils % 0.1 Nucleated RBC % 0 Platelet Estimate Adequate Platelet Comment No clumping noted Anisocytosis 1+ Microcytosis 1+ Sodium 130 L Potassium 4.0 Chloride 89 L Carbon Dioxide 28 Anion Gap 13 BUN 87 H Creatinine 2.8 H Creat Clearance w eGFR 16.39 POC Glucometer 329 Random Glucose 281 H Calcium 8.7 Phosphorus 3.5 Magnesium 2.6 H Ferritin Total Bilirubin 0.3 AST 11 L ALT 15 Alkaline Phosphatase 75 Total Protein 6.6 Albumin 2.7 L 06/04/18 11:48 WBC RBC Hgb Hct MCV MCH MCHC RDW Plt Count MPV Absolute Neuts (auto) Total Counted Neutrophils % Neutrophils % (Manual) Lymphocytes % Lymphocytes % (Manual) Monocytes % Monocytes % (Manual) Eosinophils % Eosinophils % (Manual) Basophils % Nucleated RBC % Platelet Estimate Platelet Comment Anisocytosis Microcytosis Sodium Potassium Chloride Carbon Dioxide Anion Gap BUN Creatinine Creat Clearance w eGFR POC Glucometer 327 Random Glucose Calcium Phosphorus Magnesium Ferritin Total Bilirubin AST ALT Alkaline Phosphatase Total Protein Albumin Active Medications Generic Name Dose Route Start Last Admin Trade Name Freq PRN Reason Stop Dose Admin Acetaminophen 650 mg 06/02/18 17:51 06/02/18 18:15 Tylenol - PO 650 mg Q6H PRN Administration FEVER Albuterol Sulfate 1 amp 06/02/18 18:11 Ventolin 0.083% Nebulizer Soln - NEB Q4H PRN SHORT OF BREATH/WHEEZING Albuterol/Ipratropium 1 amp 06/02/18 08:00 06/04/18 11:39 Duoneb - NEB 1 amp RQID [facility] Administration Albuterol/Ipratropium 1 amp 06/02/18 04:53 Duoneb - NEB Q4H PRN SHORTNESS OF BREATH Amlodipine Besylate 5 mg 06/03/18 10:00 06/04/18 09:26 Norvasc - PO 5 mg DAILY [facility] Administration Aspirin 81 mg 06/02/18 10:00 06/04/18 09:26 Asa - PO 81 mg DAILY [facility] Administration Atorvastatin Calcium 40 mg 06/02/18 22:00 06/03/18 21:27 Lipitor - PO 40 mg HS [facility] Administration Azithromycin 250 mg 06/05/18 10:00 Zithromax - PO DAILY [facility] Budesonide/Formoterol Fumarate 2 puff 06/02/18 11:15 06/04/18 09:25 Symbicort 160/4.5mcg - IH 2 puff BID [facility] Administration Carvedilol 25 mg 06/02/18 22:00 06/04/18 09:26 Coreg - PO 25 mg BID [facility] Administration Duloxetine HCl 30 mg 06/03/18 10:00 06/04/18 09:26 Cymbalta - PO 30 mg DAILY [facility] Administration Furosemide 80 mg 06/03/18 06:00 06/04/18 14:44 Lasix - PO 80 mg BID@0600,1400 [facility] Administration Heparin Sodium (Porcine) 5,000 unit 06/02/18 05:00 06/04/18 14:44 Heparin - SQ 5,000 unit TID [facility] Administration Ceftriaxone Sodium 2 gm/ 100 mls @ 200 mls/hr 06/04/18 12:07 Sodium Chloride IVPB Q24H [facility] Insulin Aspart 1 vial 06/04/18 11:44 06/04/18 11:54 Novolog Vial Sliding Scale - SQ 12 units ACHS [facility] Administration Protocol Insulin Detemir 42 units 06/03/18 22:00 06/03/18 21:29 Levemir Vial SQ 42 units HS [facility] Administration Insulin Detemir 10 units 06/04/18 07:00 06/04/18 06:38 Levemir Vial SQ 10 units DAILY@0700 [facility] Administration Isosorbide Mononitrate 60 mg 06/03/18 10:00 06/04/18 09:26 Imdur - PO 60 mg DAILY [facility] Administration Levothyroxine Sodium 88 mcg 06/02/18 07:00 06/04/18 06:02 Synthroid - PO 88 mcg 0700 [facility] Administration Methylprednisolone Sodium Succinate 40 mg 06/03/18 22:00 06/04/18 09:26 Solu-Medrol - IVPUSH 40 mg BID [facility] Administration Mirtazapine 15 mg 06/02/18 22:00 06/03/18 21:27 Remeron - PO 15 mg HS [facility] Administration Montelukast Sodium 10 mg 06/02/18 22:00 06/03/18 21:27 Singulair - PO 10 mg HS [facility] Administration Pantoprazole Sodium 40 mg 06/02/18 13:30 06/04/18 09:27 Protonix - PO 40 mg DAILY [facility] Administration Senna 2 tab 06/02/18 18:27 06/03/18 21:27 Senna - PO 2 tab HS PRN Administration CONSTIPATION ASSESSMENT/PLAN: Patient is a 77 year old female with history of COPD (on overnight BiPAP at home ), asthma, obesity, chronic kidney disease, CVA with residual right-sided hemiparesis, coronary artery disease (s/p cardiac cath), HTN, HLD, DM, anemia (s /p past transfusions), presents with complaint of shortness of breath. Shortness of breath -Secondary to Community acquired Pneumonia vs. COPD/ asthma exacerbation -R/O ACS- EKG showed NSR without ischemic changes. Troponins negative X2. -May be due to COPD/asthma excerbation vs. left lower lobe pneumonia vs. ?CHF -Patient given Solumedrol, and Dunoebs in ED, placed on BiPAP with improvement -3L O2 nasal canula saturating 97%. BiPAP FiO2 40%, IPAP 12, EPAP 6, rate 14 PRN -Chest Xray: weak inspiratory effort, questionable markings of left lung base -CT chest: No pleural effusions, no pneumonia identified. Dependent atelectesis in B/L lower lung lobes. -Continue Duo nebs Q4H and PRN -Changed Solu-medrol to 40mg BID. Will consider switch to PO steroids/ lower dose tomorrow. -Continue Singulair 10mg PO HS -Blood cultures grow Beta-hemolytic Strep (preliminary) -Will F/U repeat blood cultures -ID consult (Dr. Rosado) appreciated: Continue Ceftriaxone 2gm IV QD. Azithromycin 500mg IV QD. Patient was given one 1gm Vancomycin in ED. -IV antibiotics switched from D5w to normal saline to help improve blood glucose control. -Urine for strep pneumo and legionella antigen: negative -Pulmonology consult (Dr. Vick) appreciated: Will continue steroids, bronchodilators, and NIPPV. Will consider f/u CT scan to follow resolution of infiltrates. R/O Endocarditis -Cardiology consult (Dr. Herndon) appreciated: Patient had similar presentation on 03/2017 with beta hemolytic strep. VERONICA done at that time did not show evidence of endocarditis. Current echo shows no significant valvular regurgitation. Congestive heart failure -BNP 1074.36 -Reinstate home medication Lasix 80mg PO BID -Cardiac echo shows poor study d/t poor visualization of LV, MV, TV. LVEF could not be calculated. regional wall abnormalities could not be excluded. -Strict daily Intake and Output Right lower extremity edema -Possibly due to fluid overload, secondary to CHF -3+ pitting edema today (left leg 1+ pitting edema) -R/O DVT: F/U lower extremity doppler Chronic kidney disease -BUN 87, Cr 2.8 today (2.3 baseline on prior admission) -Nephrology consult (Dr. Jaun Carlos) appreciated: renal function is stable. Will continue Lasix, steroids, and antibiotics. No indication at this time for 3 % saline for hyponatremia. HTN -Reinstate home medication Norvasc 5mg PO QD -Reinstate home medication Imdur 60mg PO QD -Reinstate home medication Coreg 25mg PO BID Hypothyroidism -Continue home medication: Synthroid 88mcg QD DM -Levemir 10 units in AM, 42 units in evening. Confirmed with at bedside yesterday. -Insulin sliding scale -Fingerstick BGM ACHS HLD -Continue home medication: Lipitor 40mg HS Constipation -Senna 2 tablets QD PRN FEN -No IV fluids at this time. Patient tolerates PO fluids -Will follow CMP -Diabetic, low salt, low cholesterol diet Prophylaxis -Heparin 5000u SQ TID Disposition: -Continue care in Telemetry floor. Visit type - Emergency Visit Emergency Visit: Yes ED Registration Date: 06/02/18 Care time: The patient presented to the Emergency Department on the above date and was hospitalized for further evaluation of their emergent condition. - New Patient This patient is new to me today: No - Critical Care Critical Care patient: No - Discharge Referral Referred to [facility] No
[2018-06-04] MEDS: CEFTRIAXONE 2 GM in SODIUM CHLORIDE 100 ML IVPB SCH (15:56)
--- NOTE | 2018-06-04 17:33 | PN ---
Progress Note (short form) - Note Progress Note: Renal follow up for CKD pt seen and examined at the bedside no acute complaints no sob, cp, abd pain, fever, chills making urine Vital Signs Temperature 97.9 F 06/04/18 14:00 Pulse Rate 67 06/04/18 14:00 Respiratory Rate 17 06/04/18 08:07 Blood Pressure 141/70 06/04/18 14:00 O2 Sat by Pulse Oximetry (%) 97 06/04/18 09:35 Intake & Output 06/01/18 06/02/18 06/03/18 06/04/18 23:59 23:59 23:59 23:59 Intake Total 550 1110 950 Output Total 1150 1250 1250 Balance -600 -140 -300 Weight 86.183 kg 86.183 kg 86.092 kg 85.366 kg NAD awake and alert RRR, No M/R CTA, dec Bs at lung bases + edema in LE CBC, BMP 06/04/18 05:30 06/04/18 05:30 Current Medications Acetaminophen (Tylenol -) 650 mg PO Q6H PRN PRN Reason: FEVER Last Admin: 06/02/18 18:15 Dose: 650 mg Albuterol Sulfate (Ventolin 0.083% Nebulizer Soln -) 1 amp NEB Q4H PRN PRN Reason: SHORT OF BREATH/WHEEZING Albuterol/Ipratropium (Duoneb -) 1 amp NEB RQID [facility] Last Admin: 06/04/18 11:39 Dose: 1 amp Albuterol/Ipratropium (Duoneb -) 1 amp NEB Q4H PRN PRN Reason: SHORTNESS OF BREATH Amlodipine Besylate (Norvasc -) 5 mg PO DAILY [facility] Last Admin: 06/04/18 09:26 Dose: 5 mg Aspirin (Asa -) 81 mg PO DAILY [facility] Last Admin: 06/04/18 09:26 Dose: 81 mg Atorvastatin Calcium (Lipitor -) 40 mg PO HS [facility] Last Admin: 06/03/18 21:27 Dose: 40 mg Azithromycin (Zithromax -) 250 mg PO DAILY [facility] Budesonide/Formoterol Fumarate (Symbicort 160/4.5mcg -) 2 puff IH BID [facility] Last Admin: 06/04/18 09:25 Dose: 2 puff Carvedilol (Coreg -) 25 mg PO BID [facility] Last Admin: 06/04/18 09:26 Dose: 25 mg Duloxetine HCl (Cymbalta -) 30 mg PO DAILY [facility] Last Admin: 06/04/18 09:26 Dose: 30 mg Furosemide (Lasix -) 80 mg PO BID@0600,1400 [facility] Last Admin: 06/04/18 14:44 Dose: 80 mg Heparin Sodium (Porcine) (Heparin -) 5,000 unit SQ TID [facility] Last Admin: 06/04/18 14:44 Dose: 5,000 unit Ceftriaxone Sodium 2 gm/ (Sodium Chloride) 100 mls @ 200 mls/hr IVPB Q24H [facility] Last Admin: 06/04/18 15:56 Dose: 200 mls/hr Insulin Aspart (Novolog Vial Sliding Scale -) 1 vial SQ ACHS [facility]; Protocol Last Admin: 06/04/18 17:07 Dose: 14 units Insulin Detemir (Levemir Vial) 42 units SQ HS [facility] Last Admin: 06/03/18 21:29 Dose: 42 units Insulin Detemir (Levemir Vial) 10 units SQ DAILY@0700 [facility] Last Admin: 06/04/18 06:38 Dose: 10 units Isosorbide Mononitrate (Imdur -) 60 mg PO DAILY [facility] Last Admin: 06/04/18 09:26 Dose: 60 mg Levothyroxine Sodium (Synthroid -) 88 mcg PO 0700 [facility] Last Admin: 06/04/18 06:02 Dose: 88 mcg Methylprednisolone Sodium Succinate (Solu-Medrol -) 40 mg IVPUSH BID [facility] Last Admin: 06/04/18 09:26 Dose: 40 mg Mirtazapine (Remeron -) 15 mg PO HS [facility] Last Admin: 06/03/18 21:27 Dose: 15 mg Montelukast Sodium (Singulair -) 10 mg PO HS [facility] Last Admin: 06/03/18 21:27 Dose: 10 mg Pantoprazole Sodium (Protonix -) 40 mg PO DAILY [facility] Last Admin: 06/04/18 09:27 Dose: 40 mg Senna (Senna -) 2 tab PO HS PRN PRN Reason: CONSTIPATION Last Admin: 06/03/18 21:27 Dose: 2 tab 77 year old AA woman with hx of 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 Terrance Zamorano DO
[2018-06-04 20:42] LABS: ANION GAP 16 MMOL/L (8-16); BLOOD UREA NITROGEN 87 mg/dL (7-18); CALCIUM 8.3 mg/dL (8.5-10.1); CHLORIDE 90 mmol/L (98-107); CO2 22 mmol/L (21-32); CREATININE 2.7 mg/dL (0.55-1.02); POTASSIUM 3.9 mmol/L (3.5-5.1); SODIUM 128 mmol/L (136-145)
[2018-06-04 20:53] LABS: GLUCOSE,RANDOM 321 mg/dL (74-106)
[2018-06-04] MEDS: MIRTAZAPINE 15 MG TABLET (FP) PO SCH (21:43)
[2018-06-04] MEDS: SENNOSIDES 8.6MG TABLET (FP) PO PRN (21:43)
[2018-06-04] MEDS: MONTELUKAST NA 10 MG TABLET PO SCH (21:43)
[2018-06-04] MEDS: ATORVASTATIN CA 40 MG TABLET (FP) PO SCH (21:43)
[2018-06-05] MEDS: FUROSEMIDE 40 MG TABLET (FP) PO SCH ×2 (05:56→14:37)
[2018-06-05] MEDS: HEPARIN NA (PORCINE) 5,000 UNITS/ML 1ML VIAL SQ SCH ×3 (05:56→21:54)
[2018-06-05] MEDS: INSULIN SLIDING SCALE (NOVOLOG) 1 VIAL SQ SCH ×4 (06:01→22:03)
[2018-06-05] MEDS: INSULIN (LEVEMIR) 100 UNITS/ML UNITS SQ SCH ×2 (06:03→21:55)
[2018-06-05] MEDS: LEVOTHYROXINE NA 88 MCG TABLET (FP) PO SCH (06:08)
[2018-06-05] MEDS: ALBUTEROL SO4 2.5/IPRATROPIUM 0.5 INH SOL 3 ML VIAL.NEB. NEB SCH ×4 (08:11→21:30)
[2018-06-05 08:23] LABS: BASO % 0.1 % (0-2.0); HEMATOCRIT 30.2 % (32.4-45.2); HEMOGLOBIN 9.9 GM/dL (10.7-15.3); LYMPH % 7.9 % (8-40); MCH 26.8 pg (25.7-33.7); MCHC 32.9 g/dl (32.0-36.0); MEAN CELL VOLUME 81.4 fl (80-96); MEAN PLT VOLUME 9.6 fl (7.5-11.1); MONO % 2.6 % (3.8-10.2); NEUT % 89.4 % (42.8-82.8); PLATELET COUNT 171 K/MM3 (134-434); RBC 3.71 M/mm3 (3.60-5.2); RDW 17.3 % (11.6-15.6); WHITE BLOOD COUNT 9.9 K/mm3 (4.0-10.0)
[2018-06-05 08:44] LABS: ANION GAP 14 MMOL/L (8-16); BLOOD UREA NITROGEN 85 mg/dL (7-18); CALCIUM 8.7 mg/dL (8.5-10.1); CHLORIDE 89 mmol/L (98-107); CO2 28 mmol/L (21-32); CREATININE 2.7 mg/dL (0.55-1.02); GLUCOSE,RANDOM 297 mg/dL (74-106); POTASSIUM 3.4 mmol/L (3.5-5.1); SODIUM 131 mmol/L (136-145)
--- NOTE | 2018-06-05 09:43 | PN ---
Progress Note (short form) - Note Progress Note: PULMONARY AWAKE/ALERT OFFERS NO COMPLAINTS VSS/AFEBRILE ANICTERIC DIMINISHED AT BASES S1S2 OBESE HEEL OFF-BODILY INJURY ADJUSTER/2-3+ EDEMA B/L LOWER EXT LABS/MEDS/NOTES/IMAGES/MICRO REVIEWED IMP ACUTE HYPOXEMIC/HYPERCAPNEIC RESPIRATORY FAILURE BIBASILAR CONSOLIDATIONS PNEUMONIA/ATELECTASIS ASTHMA/COPD EXACERBATION TRACHEAL DENSITY LIKELY RETAINED SECRETIONS ROSITA CKD DM HTN MORBID OBESITY H/O CVA PLAN IV ABX STEROID CHANGED TO ORAL INHALED BRONCHODILATORS O2/GLYCEMIC CONTROL NIPPV NEEDED F/U CHEST CT TO DOCUMENT RESOLUTION OF INFILTRATES,TRACHEAL LESION MONITOR IRVING DELUCA MD
--- NOTE | 2018-06-05 09:55 | PN ---
Physical Exam: SUBJECTIVE: Patient seen and examined. Offers no new complaints. Says she feels the same as yesterday, but overall she feels better. OBJECTIVE: Vital Signs Period Temp Pulse Resp BP Sys/Mike Pulse Ox Last 24 Hr 97.7 F-98.2 F 63-71 16-17 129-146/65-81 95-98 GENERAL: obese, on 2 L NC, appears comfortable on the phone. HEAD: Normal with no signs of trauma. EYES: PERRL, extraocular movements intact ENT: oropharynx clear without exudates, moist mucous membranes. NECK: supple. LUNGS: faint wheezing b/l HEART: Regular rate and rhythm, S1, S2 without murmur, rub or gallop. ABDOMEN: Soft, nontender, nondistended, normoactive bowel sounds EXTREMITIES: 3+ edema b/l NEUROLOGICAL: Cranial nerves II through XII grossly intact. Normal speech PSYCH: Normal mood, normal affect. Laboratory Results - last 24 hr 06/04/18 06/04/18 06/04/18 11:48 17:04 20:00 WBC RBC Hgb Hct MCV MCH MCHC RDW Plt Count MPV Absolute Neuts (auto) Neutrophils % Lymphocytes % Monocytes % Eosinophils % Basophils % Nucleated RBC % Sodium 128 L Potassium 3.9 Chloride 90 L Carbon Dioxide 22 Anion Gap 16 BUN 87 H Creatinine 2.7 H Creat Clearance w eGFR 17.09 POC Glucometer 327 417 Random Glucose 321 H* Calcium 8.3 L 06/04/18 06/05/18 06/05/18 20:23 05:59 08:00 WBC 9.9 RBC 3.71 Hgb 9.9 L Hct 30.2 L MCV 81.4 MCH 26.8 MCHC 32.9 RDW 17.3 H Plt Count 171 MPV 9.6 Absolute Neuts (auto) 8.8 H Neutrophils % 89.4 H Lymphocytes % 7.9 L D Monocytes % 2.6 L Eosinophils % 0.0 Basophils % 0.1 Nucleated RBC % 0 Sodium Potassium Chloride Carbon Dioxide Anion Gap BUN Creatinine Creat Clearance w eGFR POC Glucometer 344 362 Random Glucose Calcium 06/05/18 08:00 WBC RBC Hgb Hct MCV MCH MCHC RDW Plt Count MPV Absolute Neuts (auto) Neutrophils % Lymphocytes % Monocytes % Eosinophils % Basophils % Nucleated RBC % Sodium 131 L Potassium 3.4 L Chloride 89 L Carbon Dioxide 28 Anion Gap 14 BUN 85 H Creatinine 2.7 H Creat Clearance w eGFR 17.09 POC Glucometer Random Glucose 297 H Calcium 8.7 Active Medications Generic Name Dose Route Start Last Admin Trade Name Freq PRN Reason Stop Dose Admin Acetaminophen 650 mg 06/02/18 17:51 06/02/18 18:15 Tylenol - PO 650 mg Q6H PRN Administration FEVER Albuterol Sulfate 1 amp 06/02/18 18:11 Ventolin 0.083% Nebulizer Soln - NEB Q4H PRN SHORT OF BREATH/WHEEZING Albuterol/Ipratropium 1 amp 06/02/18 08:00 06/05/18 08:11 Duoneb - NEB 1 amp RQID [facility] Administration Albuterol/Ipratropium 1 amp 06/02/18 04:53 Duoneb - NEB Q4H PRN SHORTNESS OF BREATH Amlodipine Besylate 5 mg 06/03/18 10:00 06/04/18 09:26 Norvasc - PO 5 mg DAILY [facility] Administration Aspirin 81 mg 06/02/18 10:00 06/04/18 09:26 Asa - PO 81 mg DAILY [facility] Administration Atorvastatin Calcium 40 mg 06/02/18 22:00 06/04/18 21:43 Lipitor - PO 40 mg HS [facility] Administration Azithromycin 250 mg 06/05/18 10:00 Zithromax - PO DAILY [facility] Budesonide/Formoterol Fumarate 2 puff 06/02/18 11:15 06/04/18 21:43 Symbicort 160/4.5mcg - IH 2 puff BID [facility] Administration Carvedilol 25 mg 06/02/18 22:00 06/04/18 21:43 Coreg - PO 25 mg BID [facility] Administration Duloxetine HCl 30 mg 06/03/18 10:00 06/04/18 09:26 Cymbalta - PO 30 mg DAILY [facility] Administration Furosemide 80 mg 06/03/18 06:00 06/05/18 05:56 Lasix - PO 80 mg BID@0600,1400 [facility] Administration Heparin Sodium (Porcine) 5,000 unit 06/02/18 05:00 06/05/18 05:56 Heparin - SQ Not Given TID [facility] Ceftriaxone Sodium 2 gm/ 100 mls @ 200 mls/hr 06/04/18 12:07 06/04/18 15:56 Sodium Chloride IVPB 200 mls/hr Q24H [facility] Administration Insulin Aspart 1 vial 06/04/18 11:44 06/05/18 06:01 Novolog Vial Sliding Scale - SQ 12 units ACHS [facility] Administration Protocol Insulin Detemir 42 units 06/03/18 22:00 06/04/18 21:44 Levemir Vial SQ 42 units HS [facility] Administration Insulin Detemir 10 units 06/04/18 07:00 06/05/18 06:03 Levemir Vial SQ 10 units DAILY@0700 [facility] Administration Isosorbide Mononitrate 60 mg 06/03/18 10:00 06/04/18 09:26 Imdur - PO 60 mg DAILY [facility] Administration Levothyroxine Sodium 88 mcg 06/02/18 07:00 06/05/18 06:08 Synthroid - PO 88 mcg 0700 [facility] Administration Mirtazapine 15 mg 06/02/18 22:00 06/04/18 21:43 Remeron - PO 15 mg HS [facility] Administration Montelukast Sodium 10 mg 06/02/18 22:00 06/04/18 21:43 Singulair - PO 10 mg HS [facility] Administration Pantoprazole Sodium 40 mg 06/02/18 13:30 06/04/18 09:27 Protonix - PO 40 mg DAILY [facility] Administration Prednisone 40 mg 06/05/18 10:00 Deltasone - PO DAILY [facility] Senna 2 tab 06/02/18 18:27 06/04/18 21:43 Senna - PO 2 tab HS PRN Administration CONSTIPATION ASSESSMENT/PLAN: Patient is a 77 year old female with history of COPD (on overnight BiPAP at home ), asthma, obesity, chronic kidney disease, CVA with residual right-sided hemiparesis, coronary artery disease (s/p cardiac cath), HTN, HLD, DM, anemia (s /p past transfusions), presents with complaint of shortness of breath. #Acute Hypoxic Respiratory Failure -2/2 COPD exacerbation triggered by PNA -Start PO prednisone today 40mg. -maintaining saturations on 2 L Nasal cannula -taper off O2 -Duonebs -Singulair -Symbicort -cont. Abx: Ceftriaxone, Azithromycin #Community Acquired PNA -cont. Abx: Azithromycin, Ceftriaxone -first set of cultures B hemolytic Strep -2nd set so far neg #Bactermia -first set + -2nd blood cultures neg so far -on ceftriaxone, azithromycin #DM -hyperglycemic -uncontrolled -ISS -BGM - #CKD -@ baseline -follow o/p #DHF -cont. Lasix 80mg BID #HTN -imdur -coreg -norvasc #FEN -no IV fluids -wnl -diabetic diet #DVT -heparin sq Visit type - Emergency Visit Emergency Visit: Yes ED Registration Date: 06/02/18 Care time: The patient presented to the Emergency Department on the above date and was hospitalized for further evaluation of their emergent condition. - New Patient This patient is new to me today: Yes Date on this admission: 06/05/18 - Critical Care Critical Care patient: No
[2018-06-05] MEDS: ISOSORBIDE MONONITRATE 60 MG TAB.SR.24H (FP) PO SCH (09:59)
[2018-06-05] MEDS: AZITHROMYCIN 250 MG TABLET PO SCH (09:59)
[2018-06-05] MEDS: ASPIRIN 81 MG CHEWABLE TABLETS PO SCH (09:59)
[2018-06-05] MEDS: amLODIPine BESYLATE 5 MG TABLET (FP) PO SCH (09:59)
[2018-06-05] MEDS: PANTOPRAZOLE 40 MG TABLET (FP) PO SCH (09:59)
[2018-06-05] MEDS: DULoxetine HCL 30 MG CAPSULE.DR (FP) PO SCH (09:59)
[2018-06-05] MEDS: BUDESONIDE/FORMETEROL FUMARATE 160/4.5 mcg INHALER IH SCH (10:00)
[2018-06-05] MEDS: CARVEDILOL 25 MG TABLET (FP) PO SCH ×2 (10:35→21:54)
[2018-06-05] MEDS: predniSONE 20 MG TABLET (UD) PO SCH (10:35)
[2018-06-05] MEDS ORDERED: POTASSIUM CHLORIDE TABS 20 MEQ TABLET.ER (FP) PO ONE (10:57)
--- NOTE | 2018-06-05 11:02 | PN ---
Teaching Attending Note Name of Resident: Jeff Montana ATTENDING PHYSICIAN STATEMENT I saw and evaluated the patient. I reviewed the resident's note and discussed the case with the resident. I agree with the resident's findings and plan as documented. SUBJECTIVE: No fever or chills . No abd pain , no SOB , no cough . feels much better. OBJECTIVE: NAD , CV: RRR, no JVD Lungs :good air entry . minimal scattered wheezes on both lung zuleta Abd : soft, NT, ND, NL BS Ext: b/l LE edema with pitting. R > L A/P 76-year-old female with history of CVA (residual R-hemiparesis, slurred speech) , DM Type II, COPD, CKD Stage 4, Pneumonia, PVD, HTN, Chronic R- lower extremity edema, diastolic heart failure , recent LE cellulites , and bacteremia who presented with SOB and was found tohave acute hypercapnic resp failure 1- Acute hypoxic hypercapnic resp failure due to acute COPD exacerbation. likely trigger is PNA . doing well on 2 L of O2 via NC - cont steroids . prednisone today - cont symbicort - cont nebs - cont singular - Abx for PNA 2- B hemolytic strep bacteremia : - Cont ceftriaxone, and azithro - No need for VERONICA per card - repeat Blood cx negative to date 3- Tracheal lesion : need repeat CT to evaluate 4- DM : - cont levemir and SSI. - add standing prandial dose of novolog 4 units 5- h/o CKD: cr at base line 6- h/o Diastolic heart failure . not in exacerbation - cont home dose of lasix at 80 BID orally 7- HTN : cont imdur, coreg, and norvasc Dispo: HLOC
--- NOTE | 2018-06-05 11:07 | PN ---
Progress Note, Physician History of Present Illness: No events overnight Breathing better this AM Tele:NSR - Current Medication List Current Medications: Active Medications Acetaminophen (Tylenol -) 650 mg PO Q6H PRN PRN Reason: FEVER Last Admin: 06/02/18 18:15 Dose: 650 mg Albuterol Sulfate (Ventolin 0.083% Nebulizer Soln -) 1 amp NEB Q4H PRN PRN Reason: SHORT OF BREATH/WHEEZING Albuterol/Ipratropium (Duoneb -) 1 amp NEB RQID [facility] Last Admin: 06/05/18 08:11 Dose: 1 amp Albuterol/Ipratropium (Duoneb -) 1 amp NEB Q4H PRN PRN Reason: SHORTNESS OF BREATH Amlodipine Besylate (Norvasc -) 5 mg PO DAILY [facility] Last Admin: 06/05/18 09:59 Dose: 5 mg Aspirin (Asa -) 81 mg PO DAILY [facility] Last Admin: 06/05/18 09:59 Dose: 81 mg Atorvastatin Calcium (Lipitor -) 40 mg PO HS [facility] Last Admin: 06/04/18 21:43 Dose: 40 mg Azithromycin (Zithromax -) 250 mg PO DAILY [facility] Last Admin: 06/05/18 09:59 Dose: 250 mg Budesonide/Formoterol Fumarate (Symbicort 160/4.5mcg -) 2 puff IH BID [facility] Last Admin: 06/05/18 10:00 Dose: 2 puff Carvedilol (Coreg -) 25 mg PO BID [facility] Last Admin: 06/05/18 10:35 Dose: 25 mg Duloxetine HCl (Cymbalta -) 30 mg PO DAILY [facility] Last Admin: 06/05/18 09:59 Dose: 30 mg Furosemide (Lasix -) 80 mg PO BID@0600,1400 [facility] Last Admin: 06/05/18 05:56 Dose: 80 mg Heparin Sodium (Porcine) (Heparin -) 5,000 unit SQ TID [facility] Last Admin: 06/05/18 05:56 Dose: Not Given Ceftriaxone Sodium 2 gm/ (Sodium Chloride) 100 mls @ 200 mls/hr IVPB Q24H [facility] Last Admin: 06/04/18 15:56 Dose: 200 mls/hr Insulin Aspart (Novolog Vial Sliding Scale -) 1 vial SQ ACHS [facility]; Protocol Last Admin: 06/05/18 06:01 Dose: 12 units Insulin Aspart (Novolog) 4 units SQ TIDAC [facility] Insulin Detemir (Levemir Vial) 42 units SQ [facility] Last Admin: 06/04/18 21:44 Dose: 42 units Insulin Detemir (Levemir Vial) 10 units SQ DAILY@0700 [facility] Last Admin: 06/05/18 06:03 Dose: 10 units Isosorbide Mononitrate (Imdur -) 60 mg PO DAILY [facility] Last Admin: 06/05/18 09:59 Dose: 60 mg Levothyroxine Sodium (Synthroid -) 88 mcg PO 0700 [facility] Last Admin: 06/05/18 06:08 Dose: 88 mcg Mirtazapine (Remeron -) 15 mg PO [facility] Last Admin: 06/04/18 21:43 Dose: 15 mg Montelukast Sodium (Singulair -) 10 mg PO [facility] Last Admin: 06/04/18 21:43 Dose: 10 mg Pantoprazole Sodium (Protonix -) 40 mg PO DAILY [facility] Last Admin: 06/05/18 09:59 Dose: 40 mg Prednisone (Deltasone -) 40 mg PO DAILY [facility] Last Admin: 06/05/18 10:35 Dose: 40 mg Senna (Senna -) 2 tab PO PRN PRN Reason: CONSTIPATION Last Admin: 06/04/18 21:43 Dose: 2 tab - Objective Vital Signs: Vital Signs Temperature 98.4 F 06/05/18 09:55 Pulse Rate 70 06/05/18 09:55 Respiratory Rate 18 06/05/18 09:55 Blood Pressure 141/69 06/05/18 09:55 O2 Sat by Pulse Oximetry (%) 95 06/05/18 08:10 Constitutional: Yes: No Distress, Calm Eyes: Yes: WNL HENT: Yes: WNL Neck: Yes: WNL Cardiovascular: Yes: Regular Rate and Rhythm Respiratory: Yes: Rales Gastrointestinal: Yes: Abdomen, Obese Extremities: Yes: WNL Edema: Yes Edema: LLE: 1+, RLE: 1+ Labs: CBC, BMP 06/05/18 08:00 06/05/18 08:00 INR, PTT INR 1.15 (0.83-1.09) H 06/01/18 23:45 Assessment/Plan a/p: 77 yo with h/o HTN, HL CVA (Rt hemiparesis), CKD, diastolic chf, IDDM, SHANE , anemia, COPD, hypothyroid, obesity here with sob. sob, pna, copd: -cont abx, steroids per PMD, sxs improving bacteremia: - had same in 03/2017, with same beta hemolytic strep. VERONICA 03/2017 without evidence of endocarditis. -As per Dr. Hernandez: reviewed current echo and there is no significant valvular regurgitations. - cont abx per ID. If repeat cxs remain positive or if ID has strong suspicion for endocarditis can repeat VERONICA. diastolic HF -stable, cont po lasix hld - on atorva htn -stable on current meds cva - on asa, statin CKD - stable shane - on bipap at night
[2018-06-05] MEDS ORDERED: INSULIN (NOVOLOG) ASPART 100 UNITS/ML 10ML VIAL ONE (11:45)
[2018-06-05] MEDS: Insulin (LOG) Aspart 100 UNITS/ML VIAL SQ SCH ×2 (11:50→17:01)
--- NOTE | 2018-06-05 12:20 | PN ---
Progress Note, Physician Chief Complaint: The patient seen in her bed. comfortable. No new complaints. She has no urinary complaints. 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, COPD exacerbation, CHF, Hypertension,Hyponatremia (mild), Anemia - Current Medication List Current Medications: Active Medications Acetaminophen (Tylenol -) 650 mg PO Q6H PRN PRN Reason: FEVER Last Admin: 06/02/18 18:15 Dose: 650 mg Albuterol Sulfate (Ventolin 0.083% Nebulizer Soln -) 1 amp NEB Q4H PRN PRN Reason: SHORT OF BREATH/WHEEZING Albuterol/Ipratropium (Duoneb -) 1 amp NEB RQID [facility] Last Admin: 06/05/18 08:11 Dose: 1 amp Albuterol/Ipratropium (Duoneb -) 1 amp NEB Q4H PRN PRN Reason: SHORTNESS OF BREATH Amlodipine Besylate (Norvasc -) 5 mg PO DAILY [facility] Last Admin: 06/05/18 09:59 Dose: 5 mg Aspirin (Asa -) 81 mg PO DAILY [facility] Last Admin: 06/05/18 09:59 Dose: 81 mg Atorvastatin Calcium (Lipitor -) 40 mg PO HS [facility] Last Admin: 06/04/18 21:43 Dose: 40 mg Azithromycin (Zithromax -) 250 mg PO DAILY [facility] Last Admin: 06/05/18 09:59 Dose: 250 mg Budesonide/Formoterol Fumarate (Symbicort 160/4.5mcg -) 2 puff IH BID [facility] Last Admin: 06/05/18 10:00 Dose: 2 puff Carvedilol (Coreg -) 25 mg PO BID [facility] Last Admin: 06/05/18 10:35 Dose: 25 mg Duloxetine HCl (Cymbalta -) 30 mg PO DAILY [facility] Last Admin: 06/05/18 09:59 Dose: 30 mg Furosemide (Lasix -) 80 mg PO BID@0600,1400 [facility] Last Admin: 06/05/18 05:56 Dose: 80 mg Heparin Sodium (Porcine) (Heparin -) 5,000 unit SQ TID [facility] Last Admin: 06/05/18 05:56 Dose: Not Given Ceftriaxone Sodium 2 gm/ (Sodium Chloride) 100 mls @ 200 mls/hr IVPB Q24H [facility] Last Admin: 06/04/18 15:56 Dose: 200 mls/hr Insulin Aspart (Novolog Vial Sliding Scale -) 1 vial SQ ACHS [facility]; Protocol Last Admin: 06/05/18 11:50 Dose: 12 units Insulin Aspart (Novolog) 4 units SQ TIDAC [facility] Last Admin: 06/05/18 11:50 Dose: 4 units Insulin Detemir (Levemir Vial) 42 units SQ HS [facility] Last Admin: 06/04/18 21:44 Dose: 42 units Insulin Detemir (Levemir Vial) 10 units SQ DAILY@0700 [facility] Last Admin: 06/05/18 06:03 Dose: 10 units Isosorbide Mononitrate (Imdur -) 60 mg PO DAILY [facility] [place] Last Admin: 06/05/18 09:59 Dose: 60 mg Levothyroxine Sodium (Synthroid -) 88 mcg PO 0700 [facility] Last Admin: 06/05/18 06:08 Dose: 88 mcg Mirtazapine (Remeron -) 15 mg PO [facility] Last Admin: 06/04/18 21:43 Dose: 15 mg Montelukast Sodium (Singulair -) 10 mg PO [facility] Last Admin: 06/04/18 21:43 Dose: 10 mg Pantoprazole Sodium (Protonix -) 40 mg PO DAILY [facility] Last Admin: 06/05/18 09:59 Dose: 40 mg Prednisone (Deltasone -) 40 mg PO DAILY [facility] Last Admin: 06/05/18 10:35 Dose: 40 mg Senna (Senna -) 2 tab PO PRN PRN Reason: CONSTIPATION Last Admin: 06/04/18 21:43 Dose: 2 tab - Objective Vital Signs: Vital Signs Temperature 98.4 F 06/05/18 09:55 Pulse Rate 70 06/05/18 09:55 Respiratory Rate 18 06/05/18 09:55 Blood Pressure 141/69 06/05/18 09:55 O2 Sat by Pulse Oximetry (%) 96 06/05/18 11:42 Constitutional: Yes: Anxious Eyes: Yes: Conjunctiva Clear HENT: Yes: Atraumatic Neck: Yes: Trachea Midline Cardiovascular: Yes: Tachycardia, S1, S2 Respiratory: Yes: Diminished, Rhonchi Gastrointestinal: Yes: Normal Bowel Sounds, Abdomen, Obese Genitourinary: No: CVA Tenderness - Left, CVA Tenderness - Right Musculoskeletal: Yes: Joint Stiffness Edema: Yes Edema: LLE: 2+, RLE: 2+ Labs: CBC, BMP 06/05/18 08:00 06/05/18 08:00 INR, PTT INR 1.15 (0.83-1.09) H 06/01/18 23:45 Assessment/Plan 77 year old AA woman with hx of 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. Stable azotemia #COPD exacerbation. #CHF. #Hypertension #Hyponatremia (mild volume overload) #Anemia The patient tolerates the current regimen now. Renal profile in acceptable range. Mild Hypokalemia...possibly related to Steroids and Lasix. Will supplement with KCl. Will monitor the Renal/ electrolyte profile. Thank you. Pauline Velazquez MD
[2018-06-05 12:24] LABS: PLATELET ESTIMATE ADEQUATE
[2018-06-05] MEDS: POTASSIUM CHLORIDE TABS 10 MEQ TABLET.ER (FP) PO SCH (12:40)
[2018-06-05] MEDS: CEFTRIAXONE 2 GM in SODIUM CHLORIDE 100 ML IVPB SCH (13:00)
[2018-06-05] MEDS ORDERED: SODIUM CHLORIDE 100 ML IVPB ONE (14:33)
--- NOTE | 2018-06-05 16:58 | PN ---
Progress Note, Physician History of Present Illness: Pt is alert. Denies shortness of breath, still with mild cough. Now afebrile. - Current Medication List Current Medications: Active Medications Acetaminophen (Tylenol -) 650 mg PO Q6H PRN PRN Reason: FEVER Last Admin: 06/02/18 18:15 Dose: 650 mg Albuterol Sulfate (Ventolin 0.083% Nebulizer Soln -) 1 amp NEB Q4H PRN PRN Reason: SHORT OF BREATH/WHEEZING Albuterol/Ipratropium (Duoneb -) 1 amp NEB RQID [facility] Last Admin: 06/05/18 16:42 Dose: 1 amp Albuterol/Ipratropium (Duoneb -) 1 amp NEB Q4H PRN PRN Reason: SHORTNESS OF BREATH Amlodipine Besylate (Norvasc -) 5 mg PO DAILY [facility] Last Admin: 06/05/18 09:59 Dose: 5 mg Aspirin (Asa -) 81 mg PO DAILY [facility] Last Admin: 06/05/18 09:59 Dose: 81 mg Atorvastatin Calcium (Lipitor -) 40 mg PO HS [facility] Last Admin: 06/04/18 21:43 Dose: 40 mg Azithromycin (Zithromax -) 250 mg PO DAILY [facility] Last Admin: 06/05/18 09:59 Dose: 250 mg Budesonide/Formoterol Fumarate (Symbicort 160/4.5mcg -) 2 puff IH BID [facility] Last Admin: 06/05/18 10:00 Dose: 2 puff Carvedilol (Coreg -) 25 mg PO BID [facility] Last Admin: 06/05/18 10:35 Dose: 25 mg Duloxetine HCl (Cymbalta -) 30 mg PO DAILY [facility] Last Admin: 06/05/18 09:59 Dose: 30 mg Furosemide (Lasix -) 80 mg PO BID@0600,1400 [facility] Last Admin: 06/05/18 14:37 Dose: 80 mg Heparin Sodium (Porcine) (Heparin -) 5,000 unit SQ TID [facility] Last Admin: 06/05/18 14:37 Dose: 5,000 unit Ceftriaxone Sodium 2 gm/ (Sodium Chloride) 100 mls @ 200 mls/hr IVPB Q24H [facility] Last Admin: 06/05/18 13:00 Dose: 200 mls/hr Insulin Aspart (Novolog Vial Sliding Scale -) 1 vial SQ ACHS [facility]; Protocol Last Admin: 06/05/18 11:50 Dose: 12 units Insulin Aspart (Novolog) 4 units SQ TIDAC [facility] Last Admin: 06/05/18 11:50 Dose: 4 units Insulin Detemir (Levemir Vial) 42 units SQ HS [facility] Last Admin: 06/04/18 21:44 Dose: 42 units Insulin Detemir (Levemir Vial) 10 units SQ DAILY@0700 [facility] Last Admin: 06/05/18 06:03 Dose: 10 units Isosorbide Mononitrate (Imdur -) 60 mg PO DAILY [facility] Last Admin: 06/05/18 09:59 Dose: 60 mg Levothyroxine Sodium (Synthroid -) 88 mcg PO 0700 [facility] Last Admin: 06/05/18 06:08 Dose: 88 mcg Mirtazapine (Remeron -) 15 mg PO [facility] Last Admin: 06/04/18 21:43 Dose: 15 mg Montelukast Sodium (Singulair -) 10 mg PO [facility] Last Admin: 06/04/18 21:43 Dose: 10 mg Pantoprazole Sodium (Protonix -) 40 mg PO DAILY [facility] Last Admin: 06/05/18 09:59 Dose: 40 mg Potassium Chloride (K-Dur -) 10 meq PO DAILY [facility] Last Admin: 06/05/18 12:40 Dose: 10 meq Prednisone (Deltasone -) 40 mg PO DAILY [facility] Last Admin: 06/05/18 10:35 Dose: 40 mg Senna (Senna -) 2 tab PO PRN PRN Reason: CONSTIPATION Last Admin: 06/04/18 21:43 Dose: 2 tab - Objective Vital Signs: Vital Signs Temperature 98.0 F 06/05/18 14:00 Pulse Rate 69 06/05/18 14:00 Respiratory Rate 18 06/05/18 14:00 Blood Pressure 122/67 06/05/18 14:00 O2 Sat by Pulse Oximetry (%) 96 06/05/18 14:15 Constitutional: Yes: No Distress, Calm Cardiovascular: Yes: Regular Rate and Rhythm Respiratory: Yes: Regular Gastrointestinal: Yes: Normal Bowel Sounds, Soft Genitourinary: Yes: WNL Integumentary: Yes: WNL Neurological: Yes: Alert Labs: CBC, BMP 06/05/18 08:00 06/05/18 08:00 INR, PTT INR 1.15 (0.83-1.09) H 06/01/18 23:45 Microbiology 06/04/18 17:13 Urine For Antigen Detection Legionella Antigen - Final 06/04/18 17:13 Urine For Antigen Detection Streptococcus pneumoniae Antigen (M - Final 06/03/18 05:30 Blood - Peripheral Venous Blood Culture - Preliminary NO GROWTH OBTAINED AFTER 48 HOURS, INCUBATION TO CONTINUE FOR 3 DAYS. 06/03/18 06:00 Blood - Peripheral Venous Blood Culture - Preliminary NO GROWTH OBTAINED AFTER 48 HOURS, INCUBATION TO CONTINUE FOR 3 DAYS. 06/01/18 23:45 Blood - Peripheral Venous Blood Culture - Final Beta Hemolytic Strep 06/01/18 23:45 Blood - Peripheral Venous Blood Culture - Final Beta Hem Streptococcus Group G 06/02/18 19:30 Urine For Antigen Detection Legionella Antigen - Final 06/02/18 19:30 Urine For Antigen Detection Streptococcus pneumoniae Antigen (M - Final 06/02/18 02:25 Urine - Urine - Catheterized Urine Culture - Final NO GROWTH OBTAINED Problem List - Problems (1) Acute hypercapnic respiratory failure Code(s): J96.02 - ACUTE RESPIRATORY FAILURE WITH HYPERCAPNIA (2) COPD exacerbation Code(s): J44.1 - CHRONIC OBSTRUCTIVE PULMONARY DISEASE W (ACUTE) EXACERBATION (3) Hemiplegia affecting dominant side Code(s): G81.90 - HEMIPLEGIA, UNSPECIFIED AFFECTING UNSPECIFIED SIDE (4) Morbid obesity Code(s): E66.01 - MORBID (SEVERE) OBESITY DUE TO EXCESS CALORIES (5) Pneumonia Code(s): J18.9 - PNEUMONIA, UNSPECIFIED ORGANISM (6) Swelling of right lower extremity Code(s): M79.89 - OTHER SPECIFIED SOFT TISSUE DISORDERS (7) CKD (chronic kidney disease) Code(s): N18.9 - CHRONIC KIDNEY DISEASE, UNSPECIFIED Qualifiers: Chronic kidney disease stage: unspecified stage Qualified Code(s): N18.9 - Chronic kidney disease, unspecified (8) Anemia Code(s): D64.9 - ANEMIA, UNSPECIFIED Qualifiers: Iron deficiency anemia type: chronic blood loss (9) HTN (hypertension) Code(s): I10 - ESSENTIAL (PRIMARY) HYPERTENSION (10) Leukocytosis Code(s): D72.829 - ELEVATED WHITE BLOOD CELL COUNT, UNSPECIFIED (11) Sepsis Code(s): A41.9 - SEPSIS, UNSPECIFIED ORGANISM Qualifiers: Sepsis type: Escherichia coli Qualified Code(s): A41.51 - Sepsis due to Escherichia coli [E. coli] (12) CVA (cerebral vascular accident) Code(s): I63.9 - CEREBRAL INFARCTION, UNSPECIFIED Assessment/Plan 77 y.o. female with PMH of DM, HTN, HLD, Asthma, COPD, CKD, CVA presenting with SOB, cough/wheezing, fever for 3 days Streptococcal Bacteremia/Sepsis Acute hypoxemic respiratory failure Bibasilar PNA COPD exacerbation DM Morbid Obesity CKD HTN HLD --continue Ceftriaxone IV,azithromycin po -- repeat blood culture no growth -- fever/leukocytosis resolved -- on steroids, supplemental O2 -- monitor temperature trend/vitals -- Pulmonary/Renal/Cardiology following -- will f/u
[2018-06-05] MEDS: ATORVASTATIN CA 40 MG TABLET (FP) PO SCH (21:54)
[2018-06-05] MEDS: MONTELUKAST NA 10 MG TABLET PO SCH (21:54)
[2018-06-05] MEDS: MIRTAZAPINE 15 MG TABLET (FP) PO SCH (21:54)
[2018-06-06] MEDS ORDERED: PT OWN MED DRAWER 7, Y5N ONE ×5 (00:01→23:52)
[2018-06-06] MEDS: BUDESONIDE/FORMETEROL FUMARATE 160/4.5 mcg INHALER IH SCH ×3 (00:08→21:29)
[2018-06-06] MEDS: HEPARIN NA (PORCINE) 5,000 UNITS/ML 1ML VIAL SQ SCH ×3 (06:40→21:29)
[2018-06-06] MEDS: FUROSEMIDE 40 MG TABLET (FP) PO SCH ×2 (06:40→13:38)
[2018-06-06] MEDS: INSULIN (LEVEMIR) 100 UNITS/ML UNITS SQ SCH ×2 (06:41→21:30)
[2018-06-06] MEDS: INSULIN SLIDING SCALE (NOVOLOG) 1 VIAL SQ SCH ×4 (06:42→21:30)
[2018-06-06 06:48] LABS: HEMATOCRIT 29.4 % (32.4-45.2); HEMOGLOBIN 9.7 GM/dL (10.7-15.3); MCH 26.7 pg (25.7-33.7); MCHC 33.1 g/dl (32.0-36.0); MEAN CELL VOLUME 80.7 fl (80-96); MEAN PLT VOLUME 9.6 fl (7.5-11.1); PLATELET COUNT 172 K/MM3 (134-434); RBC 3.64 M/mm3 (3.60-5.2)
[2018-06-06] MEDS: Insulin (LOG) Aspart 100 UNITS/ML VIAL SQ SCH ×3 (06:59→17:23)
[2018-06-06] MEDS: LEVOTHYROXINE NA 88 MCG TABLET (FP) PO SCH (06:59)
[2018-06-06 07:53] LABS: ANION GAP 10 MMOL/L (8-16); BLOOD UREA NITROGEN 92 mg/dL (7-18); CHLORIDE 91 mmol/L (98-107); CO2 31 mmol/L (21-32); GLUCOSE,RANDOM 213 mg/dL (74-106); POTASSIUM 4.3 mmol/L (3.5-5.1); SGOT/AST 16 U/L (15-37); SGPT/ALT 15 U/L (12-78); SODIUM 132 mmol/L (136-145)
[2018-06-06 07:56] LABS: ALBUMIN 2.6 g/dl (3.4-5.0); ALK PHOS 69 U/L (45-117); BILIRUBIN,TOTAL 0.2 mg/dL (0.2-1.0); CALCIUM 8.5 mg/dL (8.5-10.1); CREATININE 2.6 mg/dL (0.55-1.02); MAGNESIUM 2.4 mg/dL (1.8-2.4); TOT PROT 6.4 g/dl (6.4-8.2)
[2018-06-06] MEDS: ALBUTEROL SO4 2.5/IPRATROPIUM 0.5 INH SOL 3 ML VIAL.NEB. NEB SCH ×4 (08:41→21:20)
--- NOTE | 2018-06-06 10:15 | PN ---
Progress Note, Physician History of Present Illness: No events Feels improved this AM Tele: SR in 50s - Current Medication List Current Medications: Active Medications Acetaminophen (Tylenol -) 650 mg PO Q6H PRN PRN Reason: FEVER Last Admin: 06/02/18 18:15 Dose: 650 mg Albuterol Sulfate (Ventolin 0.083% Nebulizer Soln -) 1 amp NEB Q4H PRN PRN Reason: SHORT OF BREATH/WHEEZING Albuterol/Ipratropium (Duoneb -) 1 amp NEB RQID [facility] Last Admin: 06/06/18 08:41 Dose: 1 amp Albuterol/Ipratropium (Duoneb -) 1 amp NEB Q4H PRN PRN Reason: SHORTNESS OF BREATH Amlodipine Besylate (Norvasc -) 5 mg PO DAILY [facility] Last Admin: 06/05/18 09:59 Dose: 5 mg Aspirin (Asa -) 81 mg PO DAILY [facility] Last Admin: 06/05/18 09:59 Dose: 81 mg Atorvastatin Calcium (Lipitor -) 40 mg PO HS [facility] Last Admin: 06/05/18 21:54 Dose: 40 mg Azithromycin (Zithromax -) 250 mg PO DAILY [facility] Last Admin: 06/05/18 09:59 Dose: 250 mg Budesonide/Formoterol Fumarate (Symbicort 160/4.5mcg -) 2 puff IH BID [facility] Last Admin: 06/06/18 00:08 Dose: 2 puff Carvedilol (Coreg -) 25 mg PO BID [facility] Last Admin: 06/05/18 21:54 Dose: 25 mg Duloxetine HCl (Cymbalta -) 30 mg PO DAILY [facility] Last Admin: 06/05/18 09:59 Dose: 30 mg Furosemide (Lasix -) 80 mg PO BID@0600,1400 [facility] Last Admin: 06/06/18 06:40 Dose: 80 mg Heparin Sodium (Porcine) (Heparin -) 5,000 unit SQ TID [facility] Last Admin: 06/06/18 06:40 Dose: 5,000 unit Ceftriaxone Sodium 2 gm/ (Sodium Chloride) 100 mls @ 200 mls/hr IVPB Q24H [facility] Last Admin: 06/05/18 13:00 Dose: 200 mls/hr Insulin Aspart (Novolog Vial Sliding Scale -) 1 vial SQ ACHS [facility]; Protocol Last Admin: 06/06/18 06:42 Dose: 6 units Insulin Aspart (Novolog) 4 units SQ TIDAC [facility] Last Admin: 06/06/18 06:59 Dose: 4 units Insulin Detemir (Levemir Vial) 42 units SQ HS [facility] Last Admin: 06/05/18 21:55 Dose: 42 units Insulin Detemir (Levemir Vial) 10 units SQ DAILY@0700 [facility] Last Admin: 06/06/18 06:41 Dose: 10 units Isosorbide Mononitrate (Imdur -) 60 mg PO DAILY [facility] Last Admin: 06/05/18 09:59 Dose: 60 mg Levothyroxine Sodium (Synthroid -) 88 mcg PO 0700 [facility] Last Admin: 06/06/18 06:59 Dose: 88 mcg Mirtazapine (Remeron -) 15 mg PO [facility] Last Admin: 06/05/18 21:54 Dose: 15 mg Montelukast Sodium (Singulair -) 10 mg PO [facility] Last Admin: 06/05/18 21:54 Dose: 10 mg Pantoprazole Sodium (Protonix -) 40 mg PO DAILY [facility] Last Admin: 06/05/18 09:59 Dose: 40 mg Potassium Chloride (K-Dur -) 10 meq PO DAILY [facility] Last Admin: 06/05/18 12:40 Dose: 10 meq Prednisone (Deltasone -) 40 mg PO DAILY [facility] Last Admin: 06/05/18 10:35 Dose: 40 mg Senna (Senna -) 2 tab PO HS PRN PRN Reason: CONSTIPATION Last Admin: 06/04/18 21:43 Dose: 2 tab - Objective Vital Signs: Vital Signs Temperature 97.5 F L 06/06/18 06:08 Pulse Rate 64 06/06/18 06:08 Respiratory Rate 18 06/06/18 06:08 Blood Pressure 134/75 06/06/18 06:08 O2 Sat by Pulse Oximetry (%) 100 06/05/18 21:00 Constitutional: Yes: No Distress, Calm Eyes: Yes: WNL HENT: Yes: WNL Neck: Yes: WNL Cardiovascular: Yes: Regular Rate and Rhythm Respiratory: Yes: CTA Bilaterally Gastrointestinal: Yes: Abdomen, Obese Musculoskeletal: Yes: WNL Extremities: Yes: WNL Edema: Yes Labs: CBC, BMP 06/06/18 05:30 06/06/18 05:30 INR, PTT INR 1.15 (0.83-1.09) H 06/01/18 23:45 Assessment/Plan a/p: 77 yo with h/o HTN, HL CVA (Rt hemiparesis), CKD, diastolic chf, IDDM, SHANE , anemia, COPD, hypothyroid, obesity here with sob. sob, pna, copd: -cont abx, steroids per PMD, sxs improving bacteremia: - had same in 03/2017, with same beta hemolytic strep. VERONICA 03/2017 without evidence of endocarditis. -As per Dr. Hernandez: reviewed current echo and there is no significant valvular regurgitations. - cont abx per ID. If repeat cxs remain positive or if ID has strong suspicion for endocarditis can repeat VERONICA. -Last Bld Cx from 06/01 with B-strep Group G. Defer to ID for surveillance Cx. diastolic HF -stable, cont po lasix hld - on atorva htn -stable on current meds cva - on asa, statin CKD - stable shane - on bipap at night
[2018-06-06] MEDS: amLODIPine BESYLATE 5 MG TABLET (FP) PO SCH (10:20)
[2018-06-06] MEDS: POTASSIUM CHLORIDE TABS 10 MEQ TABLET.ER (FP) PO SCH (10:20)
[2018-06-06] MEDS: AZITHROMYCIN 250 MG TABLET PO SCH (10:20)
[2018-06-06] MEDS: DULoxetine HCL 30 MG CAPSULE.DR (FP) PO SCH (10:20)
[2018-06-06] MEDS: ASPIRIN 81 MG CHEWABLE TABLETS PO SCH (10:20)
[2018-06-06] MEDS: predniSONE 20 MG TABLET (UD) PO SCH (10:20)
[2018-06-06] MEDS: CARVEDILOL 25 MG TABLET (FP) PO SCH ×2 (10:20→21:29)
[2018-06-06] MEDS: PANTOPRAZOLE 40 MG TABLET (FP) PO SCH (10:21)
[2018-06-06] MEDS: ISOSORBIDE MONONITRATE 60 MG TAB.SR.24H (FP) PO SCH (10:21)
--- NOTE | 2018-06-06 12:00 | PN ---
Progress Note (short form) - Note Progress Note: PULMONARY AWAKE/ALERT OFFERS NO COMPLAINTS VSS/AFEBRILE ANICTERIC DIMINISHED AT BASES S1S2 OBESE HEEL OFF-RECRUITING AND SELECTION CONSULTANT/2-3+ EDEMA B/L LOWER EXT LABS/MEDS/NOTES/IMAGES/MICRO REVIEWED IMP ACUTE HYPOXEMIC/HYPERCAPNEIC RESPIRATORY FAILURE BIBASILAR CONSOLIDATIONS PNEUMONIA/ATELECTASIS ASTHMA/COPD EXACERBATION TRACHEAL DENSITY LIKELY RETAINED SECRETIONS ROSITA CKD DM HTN MORBID OBESITY H/O CVA PLAN IV ABX STEROID CHANGED TO ORAL TAPERED INHALED BRONCHODILATORS O2/GLYCEMIC CONTROL NIPPV NEEDED F/U CHEST CT TO DOCUMENT RESOLUTION OF INFILTRATES,TRACHEAL LESION MONITOR IRVING DELUCA MD
[2018-06-06] MEDS ORDERED: SODIUM CHLORIDE 100 ML IVPB ONE (12:35)
[2018-06-06] MEDS: CEFTRIAXONE 2 GM in SODIUM CHLORIDE 100 ML IVPB SCH (12:38)
--- NOTE | 2018-06-06 13:44 | PN ---
Progress Note, Physician Chief Complaint: The patient seen in her bed. comfortable. No new complaints. She has no urinary complaints. Family visiting. History of Present Illness: The patient seen in her room. family with her. 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, COPD exacerbation, CHF, Hypertension,Hyponatremia (mild), Anemia - Current Medication List Current Medications: Active Medications Acetaminophen (Tylenol -) 650 mg PO Q6H PRN PRN Reason: FEVER Last Admin: 06/02/18 18:15 Dose: 650 mg Albuterol Sulfate (Ventolin 0.083% Nebulizer Soln -) 1 amp NEB Q4H PRN PRN Reason: SHORT OF BREATH/WHEEZING Albuterol/Ipratropium (Duoneb -) 1 amp NEB RQID [facility] Last Admin: 06/06/18 12:16 Dose: 1 amp Albuterol/Ipratropium (Duoneb -) 1 amp NEB Q4H PRN PRN Reason: SHORTNESS OF BREATH Amlodipine Besylate (Norvasc -) 5 mg PO DAILY [facility] Last Admin: 06/06/18 10:20 Dose: 5 mg Aspirin (Asa -) 81 mg PO DAILY [facility] Last Admin: 06/06/18 10:20 Dose: 81 mg Atorvastatin Calcium (Lipitor -) 40 mg PO HS [facility] Last Admin: 06/05/18 21:54 Dose: 40 mg Azithromycin (Zithromax -) 250 mg PO DAILY [facility] Last Admin: 06/06/18 10:20 Dose: 250 mg Budesonide/Formoterol Fumarate (Symbicort 160/4.5mcg -) 2 puff IH BID [facility] Last Admin: 06/06/18 10:17 Dose: 2 puff Carvedilol (Coreg -) 25 mg PO BID [facility] Last Admin: 06/06/18 10:20 Dose: 25 mg Duloxetine HCl (Cymbalta -) 30 mg PO DAILY [facility] Last Admin: 06/06/18 10:20 Dose: 30 mg Furosemide (Lasix -) 80 mg PO BID@0600,1400 [facility] Last Admin: 06/06/18 13:38 Dose: 80 mg Heparin Sodium (Porcine) (Heparin -) 5,000 unit SQ TID [facility] Last Admin: 06/06/18 13:38 Dose: 5,000 unit Ceftriaxone Sodium 2 gm/ (Sodium Chloride) 100 mls @ 200 mls/hr IVPB Q24H [facility] Last Admin: 06/06/18 12:38 Dose: 200 mls/hr Insulin Aspart (Novolog Vial Sliding Scale -) 1 vial SQ ACHS [facility]; Protocol Last Admin: 06/06/18 12:34 Dose: 4 units Insulin Aspart (Novolog) 4 units SQ TIDAC [facility] Last Admin: 06/06/18 12:34 Dose: 4 units Insulin Detemir (Levemir Vial) 42 units SQ HS [facility] Last Admin: 06/05/18 21:55 Dose: 42 units Insulin Detemir (Levemir Vial) 10 units SQ DAILY@0700 [facility] Last Admin: 06/06/18 06:41 Dose: 10 units Isosorbide Mononitrate (Imdur -) 60 mg PO DAILY [facility] Last Admin: 06/06/18 10:21 Dose: 60 mg Levothyroxine Sodium (Synthroid -) 88 mcg PO 0700 [facility] Last Admin: 06/06/18 06:59 Dose: 88 mcg Mirtazapine (Remeron -) 15 mg PO HS [facility] Last Admin: 06/05/18 21:54 Dose: 15 mg Montelukast Sodium (Singulair -) 10 mg PO HS [facility] Last Admin: 06/05/18 21:54 Dose: 10 mg Pantoprazole Sodium (Protonix -) 40 mg PO DAILY [facility] Last Admin: 06/06/18 10:21 Dose: 40 mg Potassium Chloride (K-Dur -) 10 meq PO DAILY [facility] Last Admin: 06/06/18 10:20 Dose: 10 meq Prednisone (Deltasone -) 30 mg PO DAILY [facility] Senna (Senna -) 2 tab PO HS PRN PRN Reason: CONSTIPATION Last Admin: 06/04/18 21:43 Dose: 2 tab - Objective Vital Signs: Vital Signs Temperature 97.6 F 06/06/18 10:00 Pulse Rate 63 06/06/18 10:00 Respiratory Rate 18 06/06/18 10:00 Blood Pressure 121/69 06/06/18 10:00 O2 Sat by Pulse Oximetry (%) 99 06/06/18 09:00 Constitutional: Yes: No Distress Neck: Yes: Trachea Midline Cardiovascular: Yes: Pulse Irregular, S1, S2 Gastrointestinal: Yes: Normal Bowel Sounds, Soft Labs: CBC, BMP 06/06/18 05:30 06/06/18 05:30 INR, PTT INR 1.15 (0.83-1.09) H 06/01/18 23:45 Assessment/Plan 77 year old AA woman with hx of 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. Stable azotemia #COPD exacerbation. #CHF. #Hypertension #Hyponatremia (mild volume overload) #Anemia The patient tolerates the current regimen now. Renal profile in acceptable range. Hypokalemia...possibly related to Steroids and Lasix. Improved since starting KCl supplements. Will monitor the Renal/ electrolyte profile. Thank you. Pauline Velazquez MD
--- NOTE | 2018-06-06 16:49 | PN ---
Progress Note (short form) - Note Progress Note: Subjective: No fever or chills . No abd pain. no OSB Objective: Vital Signs: Last Vital Signs Temp Pulse Resp BP Pulse Ox 98 F 66 18 116/60 99 06/06/18 15:41 06/06/18 15:41 06/06/18 15:41 06/06/18 15:41 06/06/18 09:00 Laboratory Results - last 24 hr 06/05/18 06/05/18 06/06/18 16:59 21:53 05:27 WBC RBC Hgb Hct MCV MCH MCHC RDW Plt Count MPV Sodium Potassium Chloride Carbon Dioxide Anion Gap BUN Creatinine Creat Clearance w eGFR POC Glucometer 311 271 232 Random Glucose Calcium Magnesium Total Bilirubin AST ALT Alkaline Phosphatase Total Protein Albumin 06/06/18 06/06/18 06/06/18 05:30 05:30 11:08 WBC 11.0 H RBC 3.64 Hgb 9.7 L Hct 29.4 L MCV 80.7 MCH 26.7 MCHC 33.1 RDW 17.0 H Plt Count 172 MPV 9.6 Sodium 132 L Potassium 4.3 Chloride 91 L Carbon Dioxide 31 Anion Gap 10 BUN 92 H Creatinine 2.6 H Creat Clearance w eGFR 17.85 POC Glucometer 213 Random Glucose 213 H Calcium 8.5 Magnesium 2.4 Total Bilirubin 0.2 AST 16 ALT 15 Alkaline Phosphatase 69 Total Protein 6.4 Albumin 2.6 L Physical Exam: NAD , CV: RRR, no JVD Lungs :good air entry . minimal scattered wheezes on both lung zuleta Abd : soft, NT, ND, NL BS Ext: b/l LE edema with pitting. R > L. A/P 76-year-old female with history of CVA (residual R-hemiparesis, slurred speech) , DM Type II, COPD, CKD Stage 4, Pneumonia, PVD, HTN, Chronic R- lower extremity edema, diastolic heart failure , recent LE cellulites , and bacteremia who presented with SOB and was found tohave acute hypercapnic resp failure 1- Acute hypoxic hypercapnic resp failure due to acute COPD exacerbation. - cont steroids taper - cont symbicort - cont nebs - cont singular - Abx for PNA 2- B hemolytic strep bacteremia : - Cont ceftriaxone, and azithro - No need for VERONICA per card - repeat Blood cx negative to date 3- Tracheal lesion : need repeat CT to evaluate 4- DM : - cont levemir and SSI and standing prandial novolog . 5- h/o CKD: cr at base line 6- h/o Diastolic heart failure . not in exacerbation - cont home dose of lasix at 80 BID orally 7- HTN : cont imdur, coreg, and norvasc Dispo: HLOC Visit type - Emergency Visit Emergency Visit: Yes ED Registration Date: 06/02/18 Care time: The patient presented to the Emergency Department on the above date and was hospitalized for further evaluation of their emergent condition. - New Patient This patient is new to me today: No - Critical Care Critical Care patient: No
[2018-06-06] MEDS: MIRTAZAPINE 15 MG TABLET (FP) PO SCH (21:29)
[2018-06-06] MEDS: MONTELUKAST NA 10 MG TABLET PO SCH (21:29)
[2018-06-06] MEDS: ATORVASTATIN CA 40 MG TABLET (FP) PO SCH (21:29)
[2018-06-07] MEDS: ACETAMINOPHEN 325 MG TABLET (FP) PO PRN ×2 (02:26→22:17)
[2018-06-07] MEDS: INSULIN SLIDING SCALE (NOVOLOG) 1 VIAL SQ SCH ×4 (06:04→22:13)
[2018-06-07] MEDS: Insulin (LOG) Aspart 100 UNITS/ML VIAL SQ SCH ×2 (06:15→12:12)
[2018-06-07] MEDS: LEVOTHYROXINE NA 88 MCG TABLET (FP) PO SCH (06:17)
[2018-06-07] MEDS: FUROSEMIDE 40 MG TABLET (FP) PO SCH ×2 (06:17→14:09)
[2018-06-07] MEDS: HEPARIN NA (PORCINE) 5,000 UNITS/ML 1ML VIAL SQ SCH ×3 (06:18→22:12)
[2018-06-07] MEDS: INSULIN (LEVEMIR) 100 UNITS/ML UNITS SQ SCH ×2 (06:18→22:14)
[2018-06-07 07:18] LABS: CHLORIDE 94 mmol/L (98-107); POTASSIUM 4.1 mmol/L (3.5-5.1); SODIUM 136 mmol/L (136-145)
[2018-06-07 07:29] LABS: ANION GAP 11 MMOL/L (8-16); BLOOD UREA NITROGEN 90 mg/dL (7-18); CALCIUM 9.1 mg/dL (8.5-10.1); CO2 31 mmol/L (21-32); CREATININE 2.4 mg/dL (0.55-1.02); GLUCOSE,RANDOM 70 mg/dL (74-106)
[2018-06-07] MEDS: DULoxetine HCL 30 MG CAPSULE.DR (FP) PO SCH (07:30)
[2018-06-07 07:55] LABS: BASO % 0.2 % (0-2.0); EOS % 0.1 % (0-4.5); HEMATOCRIT 29.9 % (32.4-45.2); HEMOGLOBIN 9.8 GM/dL (10.7-15.3); MCH 26.8 pg (25.7-33.7); MCHC 32.9 g/dl (32.0-36.0); MEAN CELL VOLUME 81.3 fl (80-96); MEAN PLT VOLUME 9.6 fl (7.5-11.1); MONO % 6.6 % (3.8-10.2); NEUT % 81.1 % (42.8-82.8); PLATELET COUNT 197 K/MM3 (134-434); RBC 3.67 M/mm3 (3.60-5.2); RDW 17.4 % (11.6-15.6); WHITE BLOOD COUNT 14.5 K/mm3 (4.0-10.0)
[2018-06-07] MEDS ORDERED: IBUPROFEN 400 MG TABLET (FP) PO ONE (08:30)
[2018-06-07] MEDS ORDERED: PT OWN MED DRAWER 7, Y5N ONE (08:41)
[2018-06-07] MEDS: ISOSORBIDE MONONITRATE 60 MG TAB.SR.24H (FP) PO SCH (09:44)
[2018-06-07] MEDS: ASPIRIN 81 MG CHEWABLE TABLETS PO SCH (09:44)
[2018-06-07] MEDS: POTASSIUM CHLORIDE TABS 10 MEQ TABLET.ER (FP) PO SCH (09:44)
[2018-06-07] MEDS: CARVEDILOL 25 MG TABLET (FP) PO SCH ×2 (09:45→22:13)
[2018-06-07] MEDS: PANTOPRAZOLE 40 MG TABLET (FP) PO SCH ×2 (09:45→13:00)
[2018-06-07] MEDS: amLODIPine BESYLATE 5 MG TABLET (FP) PO SCH (09:45)
[2018-06-07] MEDS: BUDESONIDE/FORMETEROL FUMARATE 160/4.5 mcg INHALER IH SCH ×2 (09:46→22:13)
[2018-06-07] MEDS ORDERED: predniSONE 20 MG TABLET (UD) PO SCH (10:00)
[2018-06-07] MEDS ORDERED: PICC LINE 8 ML FLUSH PROTOCOL IVPUSH PRN (10:31)
[2018-06-07 11:11] LABS: ACANTHOCYTES 0; ANISOCYTOSIS 0; HELMET CELLS 0; HOWELL-JOLLY BODIES 0; MACROCYTOSIS 0; OVALOCYTE 0; PLATELET ESTIMATE NORMAL; ROULEAU 0; SICKELED CELLS 0; TARGET CELLS 0; TEAR DROP CELLS 0; TOXIC GRANULATION 0
--- NOTE | 2018-06-07 11:58 | PN ---
Progress Note, Physician History of Present Illness: PULMONARY AWAKE,-RESP DISTRESS,+ LOWER EXT PAINS( BONE PAIN) - Current Medication List Current Medications: Active Medications Acetaminophen (Tylenol -) 650 mg PO Q6H PRN PRN Reason: FEVER Last Admin: 06/07/18 02:26 Dose: 650 mg Albuterol Sulfate (Ventolin 0.083% Nebulizer Soln -) 1 amp NEB Q4H PRN PRN Reason: SHORT OF BREATH/WHEEZING Amlodipine Besylate (Norvasc -) 5 mg PO DAILY [facility] Last Admin: 06/07/18 09:45 Dose: 5 mg Aspirin (Asa -) 81 mg PO DAILY [facility] Last Admin: 06/07/18 09:44 Dose: 81 mg Atorvastatin Calcium (Lipitor -) 40 mg PO HS [facility] Last Admin: 06/06/18 21:29 Dose: 40 mg Azithromycin (Zithromax -) 250 mg PO DAILY [facility] Last Admin: 06/06/18 10:20 Dose: 250 mg Budesonide/Formoterol Fumarate (Symbicort 160/4.5mcg -) 2 puff IH BID [facility] Last Admin: 06/07/18 09:46 Dose: 2 puff Carvedilol (Coreg -) 25 mg PO BID [facility] Last Admin: 06/07/18 09:45 Dose: 25 mg Duloxetine HCl (Cymbalta -) 30 mg PO DAILY [facility] Last Admin: 06/07/18 07:30 Dose: 30 mg Furosemide (Lasix -) 80 mg PO BID@0600,1400 [facility] Last Admin: 06/07/18 06:17 Dose: 80 mg Heparin Sodium (Porcine) (Heparin -) 5,000 unit SQ TID [facility] Last Admin: 06/07/18 06:18 Dose: 5,000 unit IV Flush (Picc Line Flush) 8 ml IVPUSH PRN PRN PRN Reason: Protocol Ceftriaxone Sodium 2 gm/ (Sodium Chloride) 100 mls @ 200 mls/hr IVPB Q24H [facility] Last Admin: 06/06/18 12:38 Dose: 200 mls/hr Insulin Aspart (Novolog Vial Sliding Scale -) 1 vial SQ ACHS [facility]; Protocol Last Admin: 06/07/18 06:04 Dose: Not Given Insulin Aspart (Novolog) 4 units SQ TIDAC [facility] Last Admin: 06/07/18 06:15 Dose: Not Given Insulin Detemir (Levemir Vial) 42 units SQ HS [facility] Last Admin: 06/06/18 21:30 Dose: 42 units Insulin Detemir (Levemir Vial) 10 units SQ DAILY@0700 [facility] Last Admin: 06/07/18 06:18 Dose: 10 units Isosorbide Mononitrate (Imdur -) 60 mg PO DAILY [facility] Last Admin: 06/07/18 09:44 Dose: 60 mg Levothyroxine Sodium (Synthroid -) 88 mcg PO 0700 [facility] Last Admin: 06/07/18 06:17 Dose: 88 mcg Mirtazapine (Remeron -) 15 mg PO [facility] Last Admin: 06/06/18 21:29 Dose: 15 mg Montelukast Sodium (Singulair -) 10 mg PO [facility] Last Admin: 06/06/18 21:29 Dose: 10 mg Pantoprazole Sodium (Protonix -) 40 mg PO DAILY [facility] Last Admin: 06/07/18 09:45 Dose: 40 mg Potassium Chloride (K-Dur -) 10 meq PO DAILY [facility] Last Admin: 06/07/18 09:44 Dose: 10 meq Prednisone (Deltasone -) 30 mg PO DAILY [facility] Last Admin: 06/07/18 09:45 Dose: 30 mg Senna (Senna -) 2 tab PO PRN PRN Reason: CONSTIPATION Last Admin: 06/04/18 21:43 Dose: 2 tab - Objective Vital Signs: Vital Signs Temperature 98.1 F 06/07/18 10:00 Pulse Rate 64 06/07/18 10:00 Respiratory Rate 20 06/07/18 10:00 Blood Pressure 131/65 06/07/18 10:00 O2 Sat by Pulse Oximetry (%) 99 06/06/18 21:00 Constitutional: Yes: Well Nourished, Calm, Obese Eyes: Yes: WNL HENT: Yes: WNL Neck: Yes: WNL Cardiovascular: Yes: Regular Rate and Rhythm, S1, S2 Respiratory: Yes: Diminished Gastrointestinal: Yes: Normal Bowel Sounds, Soft Extremities: Yes: WNL Edema: Yes Labs: CBC, BMP 06/07/18 05:30 06/07/18 05:30 INR, PTT INR 1.15 (0.83-1.09) H 06/01/18 23:45 Problem List - Problems (1) Acute hypercapnic respiratory failure Code(s): J96.02 - ACUTE RESPIRATORY FAILURE WITH HYPERCAPNIA (2) COPD exacerbation Code(s): J44.1 - CHRONIC OBSTRUCTIVE PULMONARY DISEASE W (ACUTE) EXACERBATION (3) Morbid obesity Code(s): E66.01 - MORBID (SEVERE) OBESITY DUE TO EXCESS CALORIES (4) CKD (chronic kidney disease) Code(s): N18.9 - CHRONIC KIDNEY DISEASE, UNSPECIFIED Qualifiers: Chronic kidney disease stage: unspecified stage Qualified Code(s): N18.9 - Chronic kidney disease, unspecified (5) Anemia Code(s): D64.9 - ANEMIA, UNSPECIFIED Qualifiers: Iron deficiency anemia type: chronic blood loss (6) Asthma Code(s): J45.909 - UNSPECIFIED ASTHMA, UNCOMPLICATED (7) Diabetes Code(s): E11.9 - TYPE 2 DIABETES MELLITUS WITHOUT COMPLICATIONS (8) HTN (hypertension) Code(s): I10 - ESSENTIAL (PRIMARY) HYPERTENSION (9) Sleep apnea Code(s): G47.30 - SLEEP APNEA, UNSPECIFIED (10) CVA (cerebral vascular accident) Code(s): I63.9 - CEREBRAL INFARCTION, UNSPECIFIED (11) Acute respiratory failure with hypoxemia Code(s): J96.01 - ACUTE RESPIRATORY FAILURE WITH HYPOXIA (12) Pneumonia Code(s): J18.9 - PNEUMONIA, UNSPECIFIED ORGANISM Assessment/Plan IMP ACUTE HYPOXEMIC/HYPERCAPNEIC RESPIRATORY FAILURE IMPROVING BIBASILAR CONSOLIDATIONS PNEUMONIA/ATELECTASIS ASTHMA/COPD EXACERBATION IMPROVING TRACHEAL DENSITY LIKELY RETAINED SECRETIONS ROSITA CKD DM HTN MORBID OBESITY H/O CVA PLAN IV ABX STEROID TAPER INHALED BRONCHODILATORS O2 NIPPV NEEDED F/U CHEST CT TO DOCUMENT RESOLUTION OF INFILTRATES,TRACHEAL LESION MONITOR LYTES,RENAL FUNCTION ANALGESICS DR ZHU Problem List - Problems (1) Acute hypercapnic respiratory failure Code(s): J96.02 - ACUTE RESPIRATORY FAILURE WITH HYPERCAPNIA (2) COPD exacerbation Code(s): J44.1 - CHRONIC OBSTRUCTIVE PULMONARY DISEASE W (ACUTE) EXACERBATION (3) Morbid obesity Code(s): E66.01 - MORBID (SEVERE) OBESITY DUE TO EXCESS CALORIES (4) CKD (chronic kidney disease) Code(s): N18.9 - CHRONIC KIDNEY DISEASE, UNSPECIFIED Qualifiers: Chronic kidney disease stage: unspecified stage Qualified Code(s): N18.9 - Chronic kidney disease, unspecified (5) Anemia Code(s): D64.9 - ANEMIA, UNSPECIFIED Qualifiers: Iron deficiency anemia type: chronic blood loss (6) Asthma Code(s): J45.909 - UNSPECIFIED ASTHMA, UNCOMPLICATED (7) Diabetes Code(s): E11.9 - TYPE 2 DIABETES MELLITUS WITHOUT COMPLICATIONS (8) HTN (hypertension) Code(s): I10 - ESSENTIAL (PRIMARY) HYPERTENSION (9) Sleep apnea Code(s): G47.30 - SLEEP APNEA, UNSPECIFIED (10) CVA (cerebral vascular accident) Code(s): I63.9 - CEREBRAL INFARCTION, UNSPECIFIED (11) Acute respiratory failure with hypoxemia Code(s): J96.01 - ACUTE RESPIRATORY FAILURE WITH HYPOXIA (12) Pneumonia Code(s): J18.9 - PNEUMONIA, UNSPECIFIED ORGANISM
--- NOTE | 2018-06-07 12:16 | PN ---
Progress Note (short form) - Note Progress Note: s: no events, no chest pain, palps, dizzy, short of breath, edema Tele: sinus Current Medications Acetaminophen (Tylenol -) 650 mg PO Q6H PRN PRN Reason: FEVER Last Admin: 06/07/18 02:26 Dose: 650 mg Albuterol Sulfate (Ventolin 0.083% Nebulizer Soln -) 1 amp NEB Q4H PRN PRN Reason: SHORT OF BREATH/WHEEZING Amlodipine Besylate (Norvasc -) 5 mg PO DAILY [facility] Last Admin: 06/07/18 09:45 Dose: 5 mg Aspirin (Asa -) 81 mg PO DAILY [facility] Last Admin: 06/07/18 09:44 Dose: 81 mg Atorvastatin Calcium (Lipitor -) 40 mg PO HS [facility] Last Admin: 06/06/18 21:29 Dose: 40 mg Azithromycin (Zithromax -) 250 mg PO DAILY [facility] Last Admin: 06/06/18 10:20 Dose: 250 mg Budesonide/Formoterol Fumarate (Symbicort 160/4.5mcg -) 2 puff IH BID [facility] Last Admin: 06/07/18 09:46 Dose: 2 puff Carvedilol (Coreg -) 25 mg PO BID [facility] Last Admin: 06/07/18 09:45 Dose: 25 mg Duloxetine HCl (Cymbalta -) 30 mg PO DAILY [facility] Last Admin: 06/07/18 07:30 Dose: 30 mg Furosemide (Lasix -) 80 mg PO BID@0600,1400 [facility] Last Admin: 06/07/18 06:17 Dose: 80 mg Heparin Sodium (Porcine) (Heparin -) 5,000 unit SQ TID [facility] Last Admin: 06/07/18 06:18 Dose: 5,000 unit IV Flush (Picc Line Flush) 8 ml IVPUSH PRN PRN PRN Reason: Protocol Ceftriaxone Sodium 2 gm/ (Sodium Chloride) 100 mls @ 200 mls/hr IVPB Q24H [facility] Last Admin: 06/06/18 12:38 Dose: 200 mls/hr Insulin Aspart (Novolog Vial Sliding Scale -) 1 vial SQ ACHS [facility]; Protocol Last Admin: 06/07/18 12:12 Dose: Not Given Insulin Aspart (Novolog) 4 units SQ TIDAC [facility] Last Admin: 09/10/18 12:12 Dose: Not Given Insulin Detemir (Levemir Vial) 42 units SQ HS [facility] Last Admin: 06/06/18 21:30 Dose: 42 units Insulin Detemir (Levemir Vial) 10 units SQ DAILY@0700 [facility] Last Admin: 06/07/18 06:18 Dose: 10 units Isosorbide Mononitrate (Imdur -) 60 mg PO DAILY [facility] Last Admin: 06/07/18 09:44 Dose: 60 mg Levothyroxine Sodium (Synthroid -) 88 mcg PO 0700 [facility] Last Admin: 06/07/18 06:17 Dose: 88 mcg Mirtazapine (Remeron -) 15 mg PO [facility] Last Admin: 06/06/18 21:29 Dose: 15 mg Montelukast Sodium (Singulair -) 10 mg PO [facility] Last Admin: 06/06/18 21:29 Dose: 10 mg Pantoprazole Sodium (Protonix -) 40 mg PO DAILY [facility] Last Admin: 06/07/18 09:45 Dose: 40 mg Potassium Chloride (K-Dur -) 10 meq PO DAILY [facility] Last Admin: 06/07/18 09:44 Dose: 10 meq Prednisone (Deltasone -) 30 mg PO DAILY [facility] Last Admin: 06/07/18 09:45 Dose: 30 mg Senna (Senna -) 2 tab PO HS PRN PRN Reason: CONSTIPATION Last Admin: 06/04/18 21:43 Dose: 2 tab - Objective Vital Signs Period Temp Pulse Resp BP Sys/Mike Pulse Ox Last 24 Hr 98 F-98.8 F 60-68 18-20 116-138/58-75 99 Constitutional: Yes: No Distress, Calm Eyes: Yes: WNL HENT: Yes: WNL Neck: Yes: WNL Cardiovascular: Yes: Regular Rate and Rhythm Respiratory: Yes: CTA Bilaterally Gastrointestinal: Yes: Abdomen, Obese Musculoskeletal: Yes: WNL Extremities: Yes: WNL Edema: Yes Assessment/Plan a/p: 77 yo with h/o HTN, HL CVA (Rt hemiparesis), CKD, diastolic chf, IDDM, SHANE , anemia, COPD, hypothyroid, obesity here with sob. sob, pna, copd: -cont abx, steroids per PMD, pulm sxs improving bacteremia: - had same in 03/2017, with same beta hemolytic strep. VERONICA 03/2017 without evidence of endocarditis. -As per Dr. Hernandez: reviewed current echo and there is no significant valvular regurgitation. - cont abx per ID, defer VERONICA as cultures negative -Last Bld Cx from 06/01 with B-strep Group G. Defer to ID for surveillance Cx. diastolic HF -stable, cont po lasix hld - on atorva htn -stable on current meds cva - on asa, statin CKD - stable shane - on bipap at night
[2018-06-07] MEDS ORDERED: SODIUM CHLORIDE 100 ML IVPB ONE (12:26)
[2018-06-07] MEDS: CEFTRIAXONE 2 GM in SODIUM CHLORIDE 100 ML IVPB SCH (12:29)
--- NOTE | 2018-06-07 12:55 | PN ---
Progress Note (short form) - Note Progress Note: Renal follow up for CKD pt seen and examined at the bedside complains of pain in b/l heels no sob, cp, abd pain, N/V/D Vital Signs Temperature 98.1 F 06/07/18 10:00 Pulse Rate 64 06/07/18 10:00 Respiratory Rate 20 06/07/18 10:00 Blood Pressure 131/65 06/07/18 10:00 O2 Sat by Pulse Oximetry (%) 99 06/06/18 21:00 Intake & Output 06/04/18 06/05/18 06/06/18 06/07/18 23:59 23:59 23:59 23:59 Intake Total 1330 450 Output Total 2250 1010 Balance -920 -560 Weight 130.725 kg 134.433 kg 133.628 kg NAD awake and alert RRR, No M/R CTA, dec Bs at lung bases + edema in LE CBC, BMP 06/07/18 05:30 06/07/18 05:30 Current Medications Acetaminophen (Tylenol -) 650 mg PO Q6H PRN PRN Reason: FEVER Last Admin: 06/07/18 02:26 Dose: 650 mg Albuterol Sulfate (Ventolin 0.083% Nebulizer Soln -) 1 amp NEB Q4H PRN PRN Reason: SHORT OF BREATH/WHEEZING Amlodipine Besylate (Norvasc -) 5 mg PO DAILY [facility] Last Admin: 06/07/18 09:45 Dose: 5 mg Aspirin (Asa -) 81 mg PO DAILY [facility] Last Admin: 06/07/18 09:44 Dose: 81 mg Atorvastatin Calcium (Lipitor -) 40 mg PO HS [facility] Last Admin: 06/06/18 21:29 Dose: 40 mg Azithromycin (Zithromax -) 250 mg PO DAILY [facility] Last Admin: 06/06/18 10:20 Dose: 250 mg Budesonide/Formoterol Fumarate (Symbicort 160/4.5mcg -) 2 puff IH BID [facility] Last Admin: 06/07/18 09:46 Dose: 2 puff Carvedilol (Coreg -) 25 mg PO BID [facility] Last Admin: 06/07/18 09:45 Dose: 25 mg Duloxetine HCl (Cymbalta -) 30 mg PO DAILY [facility] Last Admin: 06/07/18 07:30 Dose: 30 mg Furosemide (Lasix -) 80 mg PO BID@0600,1400 [facility] Last Admin: 06/07/18 06:17 Dose: 80 mg Heparin Sodium (Porcine) (Heparin -) 5,000 unit SQ TID [facility] Last Admin: 06/07/18 06:18 Dose: 5,000 unit IV Flush (Picc Line Flush) 8 ml IVPUSH PRN PRN PRN Reason: Protocol Ceftriaxone Sodium 2 gm/ (Sodium Chloride) 100 mls @ 200 mls/hr IVPB Q24H [facility] Last Admin: 06/07/18 12:29 Dose: 200 mls/hr Insulin Aspart (Novolog Vial Sliding Scale -) 1 vial SQ ACHS [facility]; Protocol Last Admin: 06/07/18 12:12 Dose: Not Given Insulin Aspart (Novolog) 4 units SQ TIDAC [facility] Last Admin: 06/07/18 12:12 Dose: Not Given Insulin Detemir (Levemir Vial) 42 units SQ HS [facility] Last Admin: 06/06/18 21:30 Dose: 42 units Insulin Detemir (Levemir Vial) 10 units SQ DAILY@0700 [facility] Last Admin: 06/07/18 06:18 Dose: 10 units Isosorbide Mononitrate (Imdur -) 60 mg PO DAILY [facility] Last Admin: 06/07/18 09:44 Dose: 60 mg Levothyroxine Sodium (Synthroid -) 88 mcg PO 0700 [facility] Last Admin: 06/07/18 06:17 Dose: 88 mcg Mirtazapine (Remeron -) 15 mg PO HS [facility] Last Admin: 06/06/18 21:29 Dose: 15 mg Montelukast Sodium (Singulair -) 10 mg PO HS [facility] Last Admin: 06/06/18 21:29 Dose: 10 mg Pantoprazole Sodium (Protonix -) 40 mg PO DAILY [facility] Last Admin: 06/07/18 09:45 Dose: 40 mg Potassium Chloride (K-Dur -) 10 meq PO DAILY [facility] Last Admin: 06/07/18 09:44 Dose: 10 meq Prednisone (Deltasone -) 30 mg PO DAILY [facility] Last Admin: 06/07/18 09:45 Dose: 30 mg Senna (Senna -) 2 tab PO HS PRN PRN Reason: CONSTIPATION Last Admin: 06/04/18 21:43 Dose: 2 tab 77 year old AA woman with hx of 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 #COPD exacerbation #CHF #Hypertension #Anemia Renal function stable Continue oral Lasix eGFR is low but no acute indication for [employer] Consider gabapentin for presumed neuropathic pain . Terrance Zamorano DO
[2018-06-07] MEDS: AZITHROMYCIN 250 MG TABLET PO SCH (14:08)
--- NOTE | 2018-06-07 14:52 | PN ---
Teaching Attending Note Name of Resident: Parveen Leonard ATTENDING PHYSICIAN STATEMENT I saw and evaluated the patient. I reviewed the resident's note and discussed the case with the resident. I agree with the resident's findings and plan as documented. SUBJECTIVE: No fever or chills. No abd pain. No cough . pain in feet L > R. reports pain in L foot and ankle intermittently for a while after trauma to L ankle. OBJECTIVE: NAD, CV: RRR, no JVD Lungs :good air entry . minimal scattered wheezes on both lung zuleta Abd : soft, NT, ND, NL BS Ext: b/l LE edema with pitting. R > L. tenderness on L foot and big toe and R foot as well A/P 76-year-old female with history of CVA (residual R-hemiparesis, slurred speech) , DM Type II, COPD, CKD Stage 4, Pneumonia, PVD, HTN, Chronic R- lower extremity edema, diastolic heart failure , recent LE cellulites , and bacteremia who presented with SOB and was found tohave acute hypercapnic resp failure 1- Acute hypoxic hypercapnic resp failure due to acute COPD exacerbation. - cont steroids taper - cont symbicort - cont nebs - cont singular 2- B hemolytic strep bacteremia : - Cont ceftriaxone, and azithro - repeat Blood cx negative to date - d/w ID , will need ceftriaxone x 2 weeks . will discuss about azithro 3- Tracheal lesion : need repeat CT to evaluate 4- DM : - cont levemir and SSI and dc standing prandial Novolog 5- H/o CKD: cr at base line 6- h/o Diastolic heart failure . not in exacerbation - cont home dose of lasix at 80 BID orally 7- HTN : cont imdur, coreg, and norvasc Dispo: will need PICC placement . decision to go home vS NH depends on coverage .
--- NOTE | 2018-06-07 15:05 | PN ---
Physical Exam: SUBJECTIVE: Patient seen and examined at bedside. Afebrile overnight. Patient was on 3L O2 nasal canula this morning. Admits 10/10 pain in her B/L lower extremities at the feet today. Sudden onset from overnight, unable to describe palliative or provocative features. Admits she has had this type of pain in the past. Denies chest pain, palpitations, shortness of breath, cough, chest pain, palpitations, nausea, vomiting, diarrhea. OBJECTIVE: Vital Signs Period Temp Pulse Resp BP Sys/Mike Pulse Ox Last 24 Hr 98 F-98.8 F 60-68 18-20 116-138/58-75 99 GENERAL: The patient is awake, alert, in no acute distress. HEAD: Normal with no signs of trauma. EYES: PERRL, extraocular movements intact, sclera anicteric. ENT: Oropharynx clear without exudates, moist mucous membranes. NECK: Supple withut lymphadenopathy. LUNGS: On 3L nasal canula. Breath sounds equal, end-expiratory wheezes still auscultated B/L lungs upper and lower lobes. No crackles appreciated. No accessory muscle use observed upon my exam this morning. HEART: Regular rate and rhythm, +S1, S2 auscultated without murmur, rub or gallop. ABDOMEN: Soft, nontender, nondistended, normoactive bowel sounds, no guarding, no rebound, no hepatosplenomegaly appreciated. EXTREMITIES: 2+ radial and 1+ DP pulses B/L. 3+ pitting edema right lower extremity. 1+ pitting edema left lower extremity. NEUROLOGICAL: LUE strength 3/5 for flexion, extension. RUE strength 2/5 for flexion, extension. LUE abducion strength 2/5. RUE abduction strength 1/5. LLE flexion, extension 2/5. RLE flexion strength 1/5 (limited by pain). LLE extension strength 1/5 (limited by pain). Dorsiflexion, plantaflexion RLE 1/5 ( limited by pain). Dorsiflexion, plantarflexion LLE 1/5 (limited by pain). SKIN: Warm, dry. Left leg skin appears shiny today. Laboratory Results - last 24 hr 06/06/18 06/06/18 06/07/18 16:19 21:04 05:30 WBC 14.5 H RBC 3.67 Hgb 9.8 L Hct 29.9 L MCV 81.3 MCH 26.8 MCHC 32.9 RDW 17.4 H Plt Count 197 MPV 9.6 Absolute Neuts (auto) 11.8 H Neutrophils % 81.1 Neutrophils % (Manual) 63.0 Band Neutrophils % 5.0 Lymphocytes % 12.0 D Lymphocytes % (Manual) 14.0 D Monocytes % 6.6 D Monocytes % (Manual) 11 H D Eosinophils % 0.1 D Eosinophils % (Manual) 0.0 Basophils % 0.2 Basophils % (Manual) 0.0 Myelocytes % (Man) 4 H D Promyelocytes % (Man) 0 Blast Cells % (Manual) 0 Nucleated RBC % 0 Metamyelocytes 3 H D Hypochromia 0 Toxic Granulation 0 Dohle Bodies 0 Platelet Estimate Normal Polychromasia 0 Poikilocytosis 0 Basophilic Stippling 0 Anisocytosis 0 Microcytosis 0 Macrocytosis 0 Spherocytes 0 Sickle Cells 0 Target Cells 0 Tear Drop Cells 0 Ovalocytes 0 Stomatocytes 0 Helmet Cells 0 Mark-Mcdade Bodies 0 Bittinger Rings 0 Sterling Cells 0 Acanthocytes (Spur) 0 Rouleaux 0 Fragmented RBCs 0 Schistocytes 0 Sodium Potassium Chloride Carbon Dioxide Anion Gap BUN Creatinine Creat Clearance w eGFR POC Glucometer 227 178 Random Glucose Calcium 06/07/18 06/07/18 06/07/18 05:30 05:52 11:32 WBC RBC Hgb Hct MCV MCH MCHC RDW Plt Count MPV Absolute Neuts (auto) Neutrophils % Neutrophils % (Manual) Band Neutrophils % Lymphocytes % Lymphocytes % (Manual) Monocytes % Monocytes % (Manual) Eosinophils % Eosinophils % (Manual) Basophils % Basophils % (Manual) Myelocytes % (Man) Promyelocytes % (Man) Blast Cells % (Manual) Nucleated RBC % Metamyelocytes Hypochromia Toxic Granulation Dohle Bodies Platelet Estimate Polychromasia Poikilocytosis Basophilic Stippling Anisocytosis Microcytosis Macrocytosis Spherocytes Sickle Cells Target Cells Tear Drop Cells Ovalocytes Stomatocytes Helmet Cells Mark-Mcdade Bodies Bittinger Rings Christina Cells Acanthocytes (Spur) Rouleaux Fragmented RBCs Schistocytes Sodium 136 Potassium 4.1 Chloride 94 L Carbon Dioxide 31 Anion Gap 11 BUN 90 H Creatinine 2.4 H Creat Clearance w eGFR 19.58 POC Glucometer 79 121 Random Glucose 70 L Calcium 9.1 Active Medications Generic Name Dose Route Start Last Admin Trade Name Freq PRN Reason Stop Dose Admin Acetaminophen 650 mg 06/02/18 17:51 06/07/18 02:26 Tylenol - PO 650 mg Q6H PRN Administration FEVER Albuterol Sulfate 1 amp 06/02/18 18:11 Ventolin 0.083% Nebulizer Soln - NEB Q4H PRN SHORT OF BREATH/WHEEZING Amlodipine Besylate 5 mg 06/03/18 10:00 06/07/18 09:45 Norvasc - PO 5 mg DAILY IWONA Administration Aspirin 81 mg 06/02/18 10:00 06/07/18 09:44 Asa - PO 81 mg DAILY IWONA Administration Atorvastatin Calcium 40 mg 06/02/18 22:00 06/06/18 21:29 Lipitor - PO 40 mg HS IWONA Administration Azithromycin 250 mg 06/05/18 10:00 06/07/18 14:08 Zithromax - PO 250 mg DAILY [facility] Administration Budesonide/Formoterol Fumarate 2 puff 06/02/18 11:15 06/07/18 09:46 Symbicort 160/4.5mcg - IH 2 puff BID IWONA Administration Carvedilol 25 mg 06/02/18 22:00 06/07/18 09:45 Coreg - PO 25 mg BID I[facility]ONA Administration Duloxetine HCl 30 mg 06/03/18 10:00 06/07/18 07:30 Cymbalta - PO 30 mg DAILY [facility] Administration Furosemide 80 mg 06/03/18 06:00 06/07/18 14:09 Lasix - PO 80 mg BID@0600,1400 I[facility] Administration Heparin Sodium (Porcine) 5,000 unit 06/02/18 05:00 06/07/18 14:09 Heparin - SQ 5,000 unit TID I[facility] Administration IV Flush 8 ml 06/07/18 10:31 Picc Line Flush IVPUSH PRN PRN Protocol Ceftriaxone Sodium 2 gm/ 100 mls @ 200 mls/hr 06/04/18 12:07 06/07/18 12:29 Sodium Chloride IVPB 200 mls/hr Q24H [facility] Administration Insulin Aspart 1 vial 06/04/18 11:44 06/07/18 12:12 Novolog Vial Sliding Scale - SQ Not Given ACHS I[facility] Protocol Insulin Detemir 42 units 06/03/18 22:00 06/06/18 21:30 Levemir Vial SQ 42 units HS [facility] Administration Insulin Detemir 10 units 06/04/18 07:00 06/07/18 06:18 Levemir Vial SQ 10 units DAILY@0700 [facility] Administration Isosorbide Mononitrate 60 mg 06/03/18 10:00 06/07/18 09:44 Imdur - PO 60 mg DAILY [facility] Administration Levothyroxine Sodium 88 mcg 06/02/18 07:00 06/07/18 06:17 Synthroid - PO 88 mcg 0700 [facility] Administration Mirtazapine 15 mg 06/02/18 22:00 06/06/18 21:29 Remeron - PO 15 mg HS [facility] Administration Montelukast Sodium 10 mg 06/02/18 22:00 06/06/18 21:29 Singulair - PO 10 mg HS [facility] Administration Pantoprazole Sodium 40 mg 06/02/18 13:30 06/07/18 09:45 Protonix - PO 40 mg DAILY [facility] Administration Potassium Chloride 10 meq 06/05/18 12:30 06/07/18 09:44 K-Dur - PO 10 meq DAILY [facility] Administration Prednisone 20 mg 06/08/18 10:00 Deltasone - PO DAILY [facility] Senna 2 tab 06/02/18 18:27 06/04/18 21:43 Senna - PO 2 tab HS PRN Administration CONSTIPATION ASSESSMENT/PLAN: Patient is a 77 year old female with history of COPD (on overnight BiPAP at home ), asthma, obesity, chronic kidney disease, CVA with residual right-sided hemiparesis, coronary artery disease (s/p cardiac cath), HTN, HLD, DM, anemia (s /p past transfusions), presents with complaint of shortness of breath. Shortness of breath -Secondary to Community acquired Pneumonia vs. COPD/ asthma exacerbation -R/O ACS- EKG showed NSR without ischemic changes. Troponins negative X2. -May be due to COPD/asthma excerbation vs. left lower lobe pneumonia vs. ?CHF -Patient given Solumedrol, and Dunoebs in ED, placed on BiPAP with improvement -3L O2 nasal canula saturating 97%. BiPAP FiO2 40%, IPAP 12, EPAP 6, rate 14 PRN -Chest Xray: weak inspiratory effort, questionable markings of left lung base -CT chest: No pleural effusions, no pneumonia identified. Dependent atelectesis in B/L lower lung lobes. -Continue Duo nebs Q4H and PRN -Prednisone taper- 20mg tomorrow -Continue Singulair 10mg PO HS -Blood cultures grow Beta-hemolytic Strep (preliminary) -Will F/U repeat blood cultures -ID consult (Dr. Rosado) appreciated: Continue Ceftriaxone 2gm IV QD. D/C Azithromycin 500mg IV QD. Patient was given one 1gm Vancomycin in ED. -IV antibiotics switched from D5w to normal saline to help improve blood glucose control. -Urine for strep pneumo and legionella antigen: negative -Pulmonology consult (Dr. Vick) appreciated: Will continue steroids, bronchodilators, and NIPPV. Will consider f/u CT scan to follow resolution of infiltrates. B/L Leg pain -Pain is sharp, 10/10 B/L feet -Likely secondary to diabetic neuropathy -R/O DVT- F/U Doppler B/L lower extremities. -Patient is already on Duloxetine 30mg PO daily. -Tylenol 650mg Q6H PRN R/O Endocarditis -Cardiology consult (Dr. Herndon) appreciated: Patient had similar presentation on 03/2017 with beta hemolytic strep. VERONICA done at that time did not show evidence of endocarditis. Current echo shows no significant valvular regurgitation. Congestive heart failure -BNP 1074.36 -Reinstate home medication Lasix 80mg PO BID -Cardiac echo shows poor study d/t poor visualization of LV, MV, TV. LVEF could not be calculated. regional wall abnormalities could not be excluded. -Strict daily Intake and Output Right lower extremity edema -Possibly due to fluid overload, secondary to CHF -3+ pitting edema today- exquisitely tender (left leg 1+ pitting edema) Chronic kidney disease -BUN 90, Cr 2.4 today (2.3 baseline on prior admission) -Nephrology consult (Dr. Jaun Carlos) appreciated: renal function is stable. Will continue Lasix, steroids, and antibiotics. No indication at this time for 3 % saline for hyponatremia. HTN -Reinstate home medication Norvasc 5mg PO QD -Reinstate home medication Imdur 60mg PO QD -Reinstate home medication Coreg 25mg PO BID Hypothyroidism -Continue home medication: Synthroid 88mcg QD DM -Levemir 10 units in AM, 42 units in evening. Confirmed with at bedside yesterday. -Insulin sliding scale -Prandial Novolog -Fingerstick BGM ACHS HLD -Continue home medication: Lipitor 40mg HS Constipation -Senna 2 tablets QD PRN FEN -No IV fluids at this time. Patient tolerates PO fluids -Will follow CMP -Diabetic, low salt, low cholesterol diet Prophylaxis -Heparin 5000u SQ TID Disposition: -Continue care in Telemetry floor. Visit type - Emergency Visit Emergency Visit: Yes ED Registration Date: 06/02/18 Care time: The patient presented to the Emergency Department on the above date and was hospitalized for further evaluation of their emergent condition. - New Patient This patient is new to me today: No - Critical Care Critical Care patient: No - Discharge Referral Referred to [facility] No
--- NOTE | 2018-06-07 16:22 | PN ---
Progress Note, Physician History of Present Illness: Pt remains alert, afebrile. Denies shortness of breath/chest pain. C/O b/l foot pain, has had in the past. - Current Medication List Current Medications: Active Medications Acetaminophen (Tylenol -) 650 mg PO Q6H PRN PRN Reason: FEVER Last Admin: 06/07/18 02:26 Dose: 650 mg Albuterol Sulfate (Ventolin 0.083% Nebulizer Soln -) 1 amp NEB Q4H PRN PRN Reason: SHORT OF BREATH/WHEEZING Amlodipine Besylate (Norvasc -) 5 mg PO DAILY [facility] Last Admin: 06/07/18 09:45 Dose: 5 mg Aspirin (Asa -) 81 mg PO DAILY [facility] Last Admin: 06/07/18 09:44 Dose: 81 mg Atorvastatin Calcium (Lipitor -) 40 mg PO HS [facility] Last Admin: 06/06/18 21:29 Dose: 40 mg Azithromycin (Zithromax -) 250 mg PO DAILY [facility] Last Admin: 06/07/18 14:08 Dose: 250 mg Budesonide/Formoterol Fumarate (Symbicort 160/4.5mcg -) 2 puff IH BID [facility] Last Admin: 06/07/18 09:46 Dose: 2 puff Carvedilol (Coreg -) 25 mg PO BID [facility] Last Admin: 06/07/18 09:45 Dose: 25 mg Duloxetine HCl (Cymbalta -) 30 mg PO DAILY [facility] Last Admin: 06/07/18 07:30 Dose: 30 mg Furosemide (Lasix -) 80 mg PO BID@0600,1400 [facility] Last Admin: 06/07/18 14:09 Dose: 80 mg Heparin Sodium (Porcine) (Heparin -) 5,000 unit SQ TID [facility] Last Admin: 06/07/18 14:09 Dose: 5,000 unit IV Flush (Picc Line Flush) 8 ml IVPUSH PRN PRN PRN Reason: Protocol Ceftriaxone Sodium 2 gm/ (Sodium Chloride) 100 mls @ 200 mls/hr IVPB Q24H [facility] Last Admin: 06/07/18 12:29 Dose: 200 mls/hr Insulin Aspart (Novolog Vial Sliding Scale -) 1 vial SQ ACHS [facility]; Protocol Last Admin: 06/07/18 12:12 Dose: Not Given Insulin Detemir (Levemir Vial) 42 units SQ HS [facility] Last Admin: 06/06/18 21:30 Dose: 42 units Insulin Detemir (Levemir Vial) 10 units SQ DAILY@0700 [facility] Last Admin: 06/07/18 06:18 Dose: 10 units Isosorbide Mononitrate (Imdur -) 60 mg PO DAILY [facility] Last Admin: 06/07/18 09:44 Dose: 60 mg Levothyroxine Sodium (Synthroid -) 88 mcg PO 0700 [facility] Last Admin: 06/07/18 06:17 Dose: 88 mcg Mirtazapine (Remeron -) 15 mg PO [facility] Last Admin: 06/06/18 21:29 Dose: 15 mg Montelukast Sodium (Singulair -) 10 mg PO [facility] Last Admin: 06/06/18 21:29 Dose: 10 mg Pantoprazole Sodium (Protonix -) 40 mg PO DAILY [facility] Last Admin: 06/07/18 09:45 Dose: 40 mg Potassium Chloride (K-Dur -) 10 meq PO DAILY [facility] Last Admin: 06/07/18 09:44 Dose: 10 meq Prednisone (Deltasone -) 20 mg PO DAILY [facility] Senna (Senna -) 2 tab PO HS PRN PRN Reason: CONSTIPATION Last Admin: 06/04/18 21:43 Dose: 2 tab - Objective Vital Signs: Vital Signs Temperature 98.2 F 06/07/18 15:20 Pulse Rate 60 06/07/18 15:20 Respiratory Rate 20 06/07/18 15:20 Blood Pressure 129/60 06/07/18 15:20 O2 Sat by Pulse Oximetry (%) 99 06/06/18 21:00 Constitutional: Yes: No Distress, Calm Cardiovascular: Yes: Regular Rate and Rhythm Respiratory: Yes: Regular Gastrointestinal: Yes: Normal Bowel Sounds, Soft Genitourinary: Yes: WNL Edema: LLE: 2+, RLE: 2+ Integumentary: Yes: WNL Neurological: Yes: Alert Labs: CBC, BMP 06/07/18 05:30 06/07/18 05:30 INR, PTT INR 1.15 (0.83-1.09) H 06/01/18 23:45 Microbiology 06/03/18 05:30 Blood - Peripheral Venous Blood Culture - Preliminary NO GROWTH OBTAINED AFTER 96 HOURS, INCUBATION TO CONTINUE FOR 1 DAYS. 06/03/18 06:00 Blood - Peripheral Venous Blood Culture - Preliminary NO GROWTH OBTAINED AFTER 96 HOURS, INCUBATION TO CONTINUE FOR 1 DAYS. 06/04/18 17:13 Urine For Antigen Detection Legionella Antigen - Final 06/04/18 17:13 Urine For Antigen Detection Streptococcus pneumoniae Antigen (M - Final 06/01/18 23:45 Blood - Peripheral Venous Blood Culture - Final Beta Hemolytic Strep 06/01/18 23:45 Blood - Peripheral Venous Blood Culture - Final Beta Hem Streptococcus Group G 06/02/18 19:30 Urine For Antigen Detection Legionella Antigen - Final 06/02/18 19:30 Urine For Antigen Detection Streptococcus pneumoniae Antigen (M - Final 06/02/18 02:25 Urine - Urine - Catheterized Urine Culture - Final NO GROWTH OBTAINED Problem List - Problems (1) Acute hypercapnic respiratory failure Code(s): J96.02 - ACUTE RESPIRATORY FAILURE WITH HYPERCAPNIA (2) COPD exacerbation Code(s): J44.1 - CHRONIC OBSTRUCTIVE PULMONARY DISEASE W (ACUTE) EXACERBATION (3) Hemiplegia affecting dominant side Code(s): G81.90 - HEMIPLEGIA, UNSPECIFIED AFFECTING UNSPECIFIED SIDE (4) Morbid obesity Code(s): E66.01 - MORBID (SEVERE) OBESITY DUE TO EXCESS CALORIES (5) Pneumonia Code(s): J18.9 - PNEUMONIA, UNSPECIFIED ORGANISM (6) Swelling of right lower extremity Code(s): M79.89 - OTHER SPECIFIED SOFT TISSUE DISORDERS (7) CKD (chronic kidney disease) Code(s): N18.9 - CHRONIC KIDNEY DISEASE, UNSPECIFIED Qualifiers: Chronic kidney disease stage: unspecified stage Qualified Code(s): N18.9 - Chronic kidney disease, unspecified (8) Anemia Code(s): D64.9 - ANEMIA, UNSPECIFIED Qualifiers: Iron deficiency anemia type: chronic blood loss (9) HTN (hypertension) Code(s): I10 - ESSENTIAL (PRIMARY) HYPERTENSION (10) Leukocytosis Code(s): D72.829 - ELEVATED WHITE BLOOD CELL COUNT, UNSPECIFIED (11) Sepsis Code(s): A41.9 - SEPSIS, UNSPECIFIED ORGANISM Qualifiers: Sepsis type: Escherichia coli Qualified Code(s): A41.51 - Sepsis due to Escherichia coli [E. coli] (12) CVA (cerebral vascular accident) Code(s): I63.9 - CEREBRAL INFARCTION, UNSPECIFIED (13) Bacteremia due to Streptococcus Code(s): R78.81 - BACTEREMIA; B95.5 - UNSP STREPTOCOCCUS THE CAUSE OF DISEASES CLASSD [id number] Assessment/Plan 77 y.o. female with PMH of DM, HTN, HLD, Asthma, COPD, CKD, CVA presenting with SOB, cough/wheezing, fever for 3 days Streptococcal Bacteremia/Sepsis Acute hypoxemic respiratory failure Bibasilar PNA COPD exacerbation DM Morbid Obesity CKD HTN HLD --continue Ceftriaxone IV for total of 2 wks, d/c azithromycin after 5th dose -- repeat blood culture no growth -- fever resolved, mental status improved -- on steroid taper, wbc mildly elevated, continue monitor -- monitor temperature trend/vitals -- Pulmonary/Renal/Cardiology following
[2018-06-07] MEDS: SENNOSIDES 8.6MG TABLET (FP) PO PRN (22:13)
[2018-06-07] MEDS: MIRTAZAPINE 15 MG TABLET (FP) PO SCH (22:13)
[2018-06-07] MEDS: MONTELUKAST NA 10 MG TABLET PO SCH (22:13)
[2018-06-07] MEDS: ATORVASTATIN CA 40 MG TABLET (FP) PO SCH (22:13)
[2018-06-07] MEDS ORDERED: ALBUTEROL SO4 2.5/IPRATROPIUM 0.5 INH SOL 3 ML VIAL.NEB. NEB PRN (22:52)
[2018-06-07] MEDS: MELATONIN 5 MG TABLETS PO PRN (23:06)
[2018-06-08] MEDS ORDERED: GABAPENTIN 300 MG CAPSULE (FP) PO ONE (01:59)
[2018-06-08] MEDS: HEPARIN NA (PORCINE) 5,000 UNITS/ML 1ML VIAL SQ SCH ×3 (06:36→21:20)
[2018-06-08] MEDS: LEVOTHYROXINE NA 88 MCG TABLET (FP) PO SCH (06:36)
[2018-06-08] MEDS: INSULIN SLIDING SCALE (NOVOLOG) 1 VIAL SQ SCH ×3 (06:36→17:12)
[2018-06-08] MEDS: INSULIN (LEVEMIR) 100 UNITS/ML UNITS SQ SCH ×2 (06:36→21:28)
[2018-06-08] MEDS: FUROSEMIDE 40 MG TABLET (FP) PO SCH ×2 (06:36→17:12)
[2018-06-08] MEDS: ACETAMINOPHEN 325 MG TABLET (FP) PO PRN ×2 (06:37→10:59)
[2018-06-08 07:02] LABS: BASO % 0.3 % (0-2.0); EOS % 0.5 % (0-4.5); HEMATOCRIT 29.1 % (32.4-45.2); HEMOGLOBIN 9.4 GM/dL (10.7-15.3); LYMPH % 11.5 % (8-40); MCH 26.2 pg (25.7-33.7); MCHC 32.2 g/dl (32.0-36.0); MEAN CELL VOLUME 81.3 fl (80-96); MEAN PLT VOLUME 9.2 fl (7.5-11.1); MONO % 5.5 % (3.8-10.2); NEUT % 82.2 % (42.8-82.8); PLATELET COUNT 198 K/MM3 (134-434); RBC 3.58 M/mm3 (3.60-5.2); RDW 17.3 % (11.6-15.6)
[2018-06-08] MEDS: ALBUTEROL SO4 2.5/IPRATROPIUM 0.5 INH SOL 3 ML VIAL.NEB. NEB SCH ×4 (07:31→20:37)
[2018-06-08 07:41] LABS: ANION GAP 11 MMOL/L (8-16); BLOOD UREA NITROGEN 95 mg/dL (7-18); CALCIUM 8.7 mg/dL (8.5-10.1); CHLORIDE 92 mmol/L (98-107); CO2 31 mmol/L (21-32); CREATININE 2.3 mg/dL (0.55-1.02); GLUCOSE,RANDOM 140 mg/dL (74-106); POTASSIUM 4.4 mmol/L (3.5-5.1); SODIUM 134 mmol/L (136-145)
[2018-06-08] MEDS ORDERED: predniSONE 20 MG TABLET (UD) PO SCH (10:00)
--- NOTE | 2018-06-08 10:01 | PN ---
Progress Note (short form) - Note Progress Note: s: no events, no chest pain, palps, dizzy, short of breath, edema. complains of bilateral foot pain Tele: sinus, no events Current Medications Acetaminophen (Tylenol -) 650 mg PO Q6H PRN PRN Reason: FEVER Last Admin: 06/08/18 06:37 Dose: 650 mg Albuterol/Ipratropium (Duoneb -) 1 amp NEB RQID [facility] Last Admin: 06/08/18 07:31 Dose: 1 amp Albuterol/Ipratropium (Duoneb -) 1 amp NEB Q4H PRN PRN Reason: SHORTNESS OF BREATH Last Admin: 06/07/18 23:28 Dose: 1 amp Amlodipine Besylate (Norvasc -) 5 mg PO DAILY [facility] Last Admin: 06/07/18 09:45 Dose: 5 mg Aspirin (Asa -) 81 mg PO DAILY [facility] Last Admin: 06/07/18 09:44 Dose: 81 mg Atorvastatin Calcium (Lipitor -) 40 mg PO HS [facility] Last Admin: 06/07/18 22:13 Dose: 40 mg Budesonide/Formoterol Fumarate (Symbicort 160/4.5mcg -) 2 puff IH BID [facility] Last Admin: 06/07/18 22:13 Dose: 2 puff Carvedilol (Coreg -) 25 mg PO BID [facility] Last Admin: 06/07/18 22:13 Dose: 25 mg Duloxetine HCl (Cymbalta -) 30 mg PO DAILY [facility] Last Admin: 06/07/18 07:30 Dose: 30 mg Furosemide (Lasix -) 80 mg PO BID@0600,1400 [facility] Last Admin: 06/08/18 06:36 Dose: 80 mg Heparin Sodium (Porcine) (Heparin -) 5,000 unit SQ TID [facility] Last Admin: 06/08/18 06:36 Dose: 5,000 unit IV Flush (Picc Line Flush) 8 ml IVPUSH PRN PRN PRN Reason: Protocol Ceftriaxone Sodium 2 gm/ (Sodium Chloride) 100 mls @ 200 mls/hr IVPB Q24H [facility] Last Admin: 06/07/18 12:29 Dose: 200 mls/hr Insulin Aspart (Novolog Vial Sliding Scale -) 1 vial SQ ACHS [facility]; Protocol Last Admin: 06/08/18 06:36 Dose: Not Given Insulin Detemir (Levemir Vial) 42 units SQ HS [facility] Last Admin: 06/07/18 22:14 Dose: 42 units Insulin Detemir (Levemir Vial) 10 units SQ DAILY@0700 [facility] Last Admin: 06/08/18 06:36 Dose: 10 units Isosorbide Mononitrate (Imdur -) 60 mg PO DAILY [facility] Last Admin: 06/07/18 09:44 Dose: 60 mg Levothyroxine Sodium (Synthroid -) 88 mcg PO 0700 [facility] Last Admin: 06/08/18 06:36 Dose: 88 mcg Melatonin (Melatonin) 5 mg PO HS PRN PRN Reason: INSOMNIA Last Admin: 06/07/18 23:06 Dose: 5 mg Mirtazapine (Remeron -) 15 mg PO HS [facility] Last Admin: 06/07/18 22:13 Dose: 15 mg Montelukast Sodium (Singulair -) 10 mg PO HS [facility] Last Admin: 06/07/18 22:13 Dose: 10 mg Pantoprazole Sodium (Protonix -) 40 mg PO DAILY [facility] Last Admin: 06/07/18 09:45 Dose: 40 mg Potassium Chloride (K-Dur -) 10 meq PO DAILY [facility] Last Admin: 06/07/18 09:44 Dose: 10 meq Prednisone (Deltasone -) 20 mg PO DAILY [facility] Senna (Senna -) 2 tab PO HS PRN PRN Reason: CONSTIPATION Last Admin: 06/07/18 22:13 Dose: 2 tab - Objective Vital Signs Period Temp Pulse Resp BP Sys/Mike Pulse Ox Last 24 Hr 98.1 F-98.9 F 60-68 18-20 120-154/60-81 98-100 Constitutional: Yes: No Distress, Calm Eyes: Yes: WNL HENT: Yes: WNL Neck: Yes: WNL Cardiovascular: Yes: Regular Rate and Rhythm Respiratory: Yes: CTA Bilaterally Gastrointestinal: Yes: Abdomen, Obese Musculoskeletal: Yes: WNL Extremities: Yes: WNL Edema: Yes Assessment/Plan a/p: 77 yo with h/o HTN, HL CVA (Rt hemiparesis), CKD, diastolic chf, IDDM, SHANE , anemia, COPD, hypothyroid, obesity here with sob. sob, pna, copd: -cont abx, steroids per primary team bacteremia: - had same in 03/2017, with same beta hemolytic strep. VERONICA 03/2017 without evidence of endocarditis. -As per Dr. Hernandez: reviewed current echo and there is no significant valvular regurgitation. - cont abx per ID, defer VERONICA as cultures negative -Last Bld Cx from 06/01 with B-strep Group G. Defer to ID for surveillance Cx. diastolic HF -stable, cont po lasix hld - on atorva htn -stable on current meds cva - on asa, statin CKD - stable shane - on bipap at night
[2018-06-08 10:18] LABS: ANISOCYTOSIS 1+; MACROCYTOSIS 1+; PLATELET ESTIMATE NORMAL
[2018-06-08] MEDS ORDERED: SODIUM CHLORIDE 100 ML IVPB ONE (10:40)
[2018-06-08] MEDS: ISOSORBIDE MONONITRATE 60 MG TAB.SR.24H (FP) PO SCH (10:58)
[2018-06-08] MEDS: POTASSIUM CHLORIDE TABS 10 MEQ TABLET.ER (FP) PO SCH (10:59)
[2018-06-08] MEDS: PANTOPRAZOLE 40 MG TABLET (FP) PO SCH (10:59)
[2018-06-08] MEDS: DULoxetine HCL 30 MG CAPSULE.DR (FP) PO SCH (10:59)
[2018-06-08] MEDS: amLODIPine BESYLATE 5 MG TABLET (FP) PO SCH (10:59)
[2018-06-08] MEDS: CARVEDILOL 25 MG TABLET (FP) PO SCH ×2 (10:59→21:20)
[2018-06-08] MEDS: ASPIRIN 81 MG CHEWABLE TABLETS PO SCH (10:59)
--- NOTE | 2018-06-08 11:01 | PN ---
Progress Note, Physician History of Present Illness: pulmonary alert,comfortable,- resp distress - Current Medication List Current Medications: Active Medications Acetaminophen (Tylenol -) 650 mg PO Q6H PRN PRN Reason: FEVER Last Admin: 06/08/18 06:37 Dose: 650 mg Albuterol/Ipratropium (Duoneb -) 1 amp NEB RQID [facility] Last Admin: 06/08/18 07:31 Dose: 1 amp Albuterol/Ipratropium (Duoneb -) 1 amp NEB Q4H PRN PRN Reason: SHORTNESS OF BREATH Last Admin: 06/07/18 23:28 Dose: 1 amp Amlodipine Besylate (Norvasc -) 5 mg PO DAILY [facility] Last Admin: 06/07/18 09:45 Dose: 5 mg Aspirin (Asa -) 81 mg PO DAILY [facility] Last Admin: 06/07/18 09:44 Dose: 81 mg Atorvastatin Calcium (Lipitor -) 40 mg PO HS [facility] Last Admin: 06/07/18 22:13 Dose: 40 mg Budesonide/Formoterol Fumarate (Symbicort 160/4.5mcg -) 2 puff IH BID [facility] Last Admin: 06/07/18 22:13 Dose: 2 puff Carvedilol (Coreg -) 25 mg PO BID [facility] Last Admin: 06/07/18 22:13 Dose: 25 mg Duloxetine HCl (Cymbalta -) 30 mg PO DAILY [facility] Last Admin: 06/07/18 07:30 Dose: 30 mg Furosemide (Lasix -) 80 mg PO BID@0600,1400 [facility] Last Admin: 06/08/18 06:36 Dose: 80 mg Heparin Sodium (Porcine) (Heparin -) 5,000 unit SQ TID [facility] Last Admin: 06/08/18 06:36 Dose: 5,000 unit IV Flush (Picc Line Flush) 8 ml IVPUSH PRN PRN PRN Reason: Protocol Ceftriaxone Sodium 2 gm/ (Sodium Chloride) 100 mls @ 200 mls/hr IVPB Q24H [facility] Last Admin: 06/07/18 12:29 Dose: 200 mls/hr Insulin Aspart (Novolog Vial Sliding Scale -) 1 vial SQ ACHS [facility]; Protocol Last Admin: 06/08/18 06:36 Dose: Not Given Insulin Detemir (Levemir Vial) 42 units SQ HS [facility] Last Admin: 06/07/18 22:14 Dose: 42 units Insulin Detemir (Levemir Vial) 10 units SQ DAILY@0700 [facility] Last Admin: 06/08/18 06:36 Dose: 10 units Isosorbide Mononitrate (Imdur -) 60 mg PO DAILY [facility] Last Admin: 06/07/18 09:44 Dose: 60 mg Levothyroxine Sodium (Synthroid -) 88 mcg PO 0700 [facility] Last Admin: 06/08/18 06:36 Dose: 88 mcg Melatonin (Melatonin) 5 mg PO HS PRN PRN Reason: INSOMNIA Last Admin: 06/07/18 23:06 Dose: 5 mg Mirtazapine (Remeron -) 15 mg PO [facility] Last Admin: 06/07/18 22:13 Dose: 15 mg Montelukast Sodium (Singulair -) 10 mg PO HS [facility] Last Admin: 06/07/18 22:13 Dose: 10 mg Pantoprazole Sodium (Protonix -) 40 mg PO DAILY [facility] Last Admin: 06/07/18 09:45 Dose: 40 mg Potassium Chloride (K-Dur -) 10 meq PO DAILY [facility] Last Admin: 06/07/18 09:44 Dose: 10 meq Prednisone (Deltasone -) 20 mg PO DAILY [facility] Senna (Senna -) 2 tab PO HS PRN PRN Reason: CONSTIPATION Last Admin: 06/07/18 22:13 Dose: 2 tab - Objective Vital Signs: Vital Signs Temperature 98.9 F 06/08/18 06:00 Pulse Rate 65 06/08/18 08:25 Respiratory Rate 18 06/08/18 08:26 Blood Pressure 142/81 06/08/18 08:25 O2 Sat by Pulse Oximetry (%) 98 06/08/18 08:26 Constitutional: Yes: Well Nourished, Calm, Obese Eyes: Yes: WNL HENT: Yes: WNL Neck: Yes: WNL Cardiovascular: Yes: Regular Rate and Rhythm, S1, S2 Respiratory: Yes: Diminished Gastrointestinal: Yes: Normal Bowel Sounds, Soft Extremities: Yes: WNL Edema: Yes Labs: CBC, BMP 06/08/18 05:30 06/08/18 05:30 INR, PTT INR 1.15 (0.83-1.09) H 06/01/18 23:45 Problem List - Problems (1) Acute hypercapnic respiratory failure Code(s): J96.02 - ACUTE RESPIRATORY FAILURE WITH HYPERCAPNIA (2) COPD exacerbation Code(s): J44.1 - CHRONIC OBSTRUCTIVE PULMONARY DISEASE W (ACUTE) EXACERBATION (3) Morbid obesity Code(s): E66.01 - MORBID (SEVERE) OBESITY DUE TO EXCESS CALORIES (4) CKD (chronic kidney disease) Code(s): N18.9 - CHRONIC KIDNEY DISEASE, UNSPECIFIED Qualifiers: Chronic kidney disease stage: unspecified stage Qualified Code(s): N18.9 - Chronic kidney disease, unspecified (5) Anemia Code(s): D64.9 - ANEMIA, UNSPECIFIED Qualifiers: Iron deficiency anemia type: chronic blood loss (6) Asthma Code(s): J45.909 - UNSPECIFIED ASTHMA, UNCOMPLICATED (7) Diabetes Code(s): E11.9 - TYPE 2 DIABETES MELLITUS WITHOUT COMPLICATIONS (8) HTN (hypertension) Code(s): I10 - ESSENTIAL (PRIMARY) HYPERTENSION (9) Sleep apnea Code(s): G47.30 - SLEEP APNEA, UNSPECIFIED (10) CVA (cerebral vascular accident) Code(s): I63.9 - CEREBRAL INFARCTION, UNSPECIFIED (11) Acute respiratory failure with hypoxemia Code(s): J96.01 - ACUTE RESPIRATORY FAILURE WITH HYPOXIA (12) Pneumonia Code(s): J18.9 - PNEUMONIA, UNSPECIFIED ORGANISM Assessment/Plan IMP ACUTE HYPOXEMIC/HYPERCAPNEIC RESPIRATORY FAILURE IMPROVING BIBASILAR CONSOLIDATIONS PNEUMONIA/ATELECTASIS ASTHMA/COPD EXACERBATION IMPROVING BETA HEMOLYTIC STREP BACTEREMIA TRACHEAL DENSITY LIKELY RETAINED SECRETIONS ROSITA CKD DM HTN MORBID OBESITY H/O CVA PLAN IV ABX PER ID STEROID TAPER INHALED BRONCHODILATORS O2 NIPPV NEEDED F/U CHEST CT TO DOCUMENT RESOLUTION OF INFILTRATES,TRACHEAL LESION MONITOR LYTES,RENAL FUNCTION ANALGESICS DR [facility] Problem List - Problems (1) Acute hypercapnic respiratory failure Code(s): J96.02 - ACUTE RESPIRATORY FAILURE WITH HYPERCAPNIA (2) COPD exacerbation Code(s): J44.1 - CHRONIC OBSTRUCTIVE PULMONARY DISEASE W (ACUTE) EXACERBATION (3) Morbid obesity Code(s): E66.01 - MORBID (SEVERE) OBESITY DUE TO EXCESS CALORIES (4) CKD (chronic kidney disease) Code(s): N18.9 - CHRONIC KIDNEY DISEASE, UNSPECIFIED Qualifiers: Chronic kidney disease stage: unspecified stage Qualified Code(s): N18.9 - Chronic kidney disease, unspecified (5) Anemia Code(s): D64.9 - ANEMIA, UNSPECIFIED Qualifiers: Iron deficiency anemia type: chronic blood loss (6) Asthma Code(s): J45.909 - UNSPECIFIED ASTHMA, UNCOMPLICATED (7) Diabetes Code(s): E11.9 - TYPE 2 DIABETES MELLITUS WITHOUT COMPLICATIONS (8) HTN (hypertension) Code(s): I10 - ESSENTIAL (PRIMARY) HYPERTENSION (9) Sleep apnea Code(s): G47.30 - SLEEP APNEA, UNSPECIFIED (10) CVA (cerebral vascular accident) Code(s): I63.9 - CEREBRAL INFARCTION, UNSPECIFIED (11) Acute respiratory failure with hypoxemia Code(s): J96.01 - ACUTE RESPIRATORY FAILURE WITH HYPOXIA (12) Pneumonia Code(s): J18.9 - PNEUMONIA, UNSPECIFIED ORGANISM
[2018-06-08] MEDS: CEFTRIAXONE 2 GM in SODIUM CHLORIDE 100 ML IVPB SCH (12:00)
--- NOTE | 2018-06-08 12:59 | PN ---
Progress Note, Physician History of Present Illness: Pt is fully alert, remains afebrile, denies shortness of breath. No specific complaints at this time. - Current Medication List Current Medications: Active Medications Acetaminophen (Tylenol -) 650 mg PO Q6H PRN PRN Reason: FEVER Last Admin: 06/08/18 10:59 Dose: 650 mg Albuterol/Ipratropium (Duoneb -) 1 amp NEB RQID [facility] Last Admin: 06/08/18 07:31 Dose: 1 amp Albuterol/Ipratropium (Duoneb -) 1 amp NEB Q4H PRN PRN Reason: SHORTNESS OF BREATH Last Admin: 06/07/18 23:28 Dose: 1 amp Amlodipine Besylate (Norvasc -) 5 mg PO DAILY [facility] Last Admin: 06/08/18 10:59 Dose: 5 mg Aspirin (Asa -) 81 mg PO DAILY [facility] Last Admin: 06/08/18 10:59 Dose: 81 mg Atorvastatin Calcium (Lipitor -) 40 mg PO HS [facility] Last Admin: 06/07/18 22:13 Dose: 40 mg Budesonide/Formoterol Fumarate (Symbicort 160/4.5mcg -) 2 puff IH BID [facility] Last Admin: 06/07/18 22:13 Dose: 2 puff Carvedilol (Coreg -) 25 mg PO BID [facility] Last Admin: 06/08/18 10:59 Dose: 25 mg Duloxetine HCl (Cymbalta -) 30 mg PO DAILY [facility] Last Admin: 06/08/18 10:59 Dose: 30 mg Furosemide (Lasix -) 80 mg PO BID@0600,1400 [facility] Last Admin: 06/08/18 06:36 Dose: 80 mg Heparin Sodium (Porcine) (Heparin -) 5,000 unit SQ TID [facility] Last Admin: 06/08/18 06:36 Dose: 5,000 unit IV Flush (Picc Line Flush) 8 ml IVPUSH PRN PRN PRN Reason: Protocol Ceftriaxone Sodium 2 gm/ (Sodium Chloride) 100 mls @ 200 mls/hr IVPB Q24H [facility] Last Admin: 06/07/18 12:29 Dose: 200 mls/hr Insulin Aspart (Novolog Vial Sliding Scale -) 1 vial SQ ACHS [facility]; Protocol Last Admin: 06/08/18 06:36 Dose: Not Given Insulin Detemir (Levemir Vial) 42 units SQ HS [facility] Last Admin: 06/07/18 22:14 Dose: 42 units Insulin Detemir (Levemir Vial) 10 units SQ DAILY@0700 [facility] Last Admin: 06/08/18 06:36 Dose: 10 units Isosorbide Mononitrate (Imdur -) 60 mg PO DAILY [facility] Last Admin: 06/08/18 10:58 Dose: 60 mg Levothyroxine Sodium (Synthroid -) 88 mcg PO 0700 [facility] Last Admin: 06/08/18 06:36 Dose: 88 mcg Melatonin (Melatonin) 5 mg PO HS PRN PRN Reason: INSOMNIA Last Admin: 06/07/18 23:06 Dose: 5 mg Mirtazapine (Remeron -) 15 mg PO HS [facility] Last Admin: 06/07/18 22:13 Dose: 15 mg Montelukast Sodium (Singulair -) 10 mg PO HS [facility] Last Admin: 06/07/18 22:13 Dose: 10 mg Pantoprazole Sodium (Protonix -) 40 mg PO DAILY [facility] Last Admin: 06/08/18 10:59 Dose: 40 mg Potassium Chloride (K-Dur -) 10 meq PO DAILY [facility] Last Admin: 06/08/18 10:59 Dose: 10 meq Prednisone (Deltasone -) 20 mg PO DAILY [facility] Last Admin: 06/08/18 10:59 Dose: 20 mg Senna (Senna -) 2 tab PO HS PRN PRN Reason: CONSTIPATION Last Admin: 06/07/18 22:13 Dose: 2 tab - Objective Vital Signs: Vital Signs Temperature 98.9 F 06/08/18 06:00 Pulse Rate 65 06/08/18 08:25 Respiratory Rate 18 06/08/18 08:26 Blood Pressure 142/81 06/08/18 08:25 O2 Sat by Pulse Oximetry (%) 98 06/08/18 08:26 Constitutional: Yes: No Distress, Calm Cardiovascular: Yes: Regular Rate and Rhythm Respiratory: Yes: Diminished (bases) Gastrointestinal: Yes: Normal Bowel Sounds, Soft, Abdomen, Obese Genitourinary: Yes: WNL Extremities: Yes: WNL Integumentary: Yes: WNL Neurological: Yes: Alert Labs: CBC, BMP 06/08/18 05:30 06/08/18 05:30 INR, PTT INR 1.15 (0.83-1.09) H 06/01/18 23:45 Problem List - Problems (1) Acute hypercapnic respiratory failure Code(s): J96.02 - ACUTE RESPIRATORY FAILURE WITH HYPERCAPNIA (2) COPD exacerbation Code(s): J44.1 - CHRONIC OBSTRUCTIVE PULMONARY DISEASE W (ACUTE) EXACERBATION (3) Hemiplegia affecting dominant side Code(s): G81.90 - HEMIPLEGIA, UNSPECIFIED AFFECTING UNSPECIFIED SIDE (4) Morbid obesity Code(s): E66.01 - MORBID (SEVERE) OBESITY DUE TO EXCESS CALORIES (5) Pneumonia Code(s): J18.9 - PNEUMONIA, UNSPECIFIED ORGANISM (6) Swelling of right lower extremity Code(s): M79.89 - OTHER SPECIFIED SOFT TISSUE DISORDERS (7) CKD (chronic kidney disease) Code(s): N18.9 - CHRONIC KIDNEY DISEASE, UNSPECIFIED Qualifiers: Chronic kidney disease stage: unspecified stage Qualified Code(s): N18.9 - Chronic kidney disease, unspecified (8) Anemia Code(s): D64.9 - ANEMIA, UNSPECIFIED Qualifiers: Iron deficiency anemia type: chronic blood loss (9) HTN (hypertension) Code(s): I10 - ESSENTIAL (PRIMARY) HYPERTENSION (10) Leukocytosis Code(s): D72.829 - ELEVATED WHITE BLOOD CELL COUNT, UNSPECIFIED (11) Sepsis Code(s): A41.9 - SEPSIS, UNSPECIFIED ORGANISM Qualifiers: Sepsis type: Escherichia coli Qualified Code(s): A41.51 - Sepsis due to Escherichia coli [E. coli] (12) CVA (cerebral vascular accident) Code(s): I63.9 - CEREBRAL INFARCTION, UNSPECIFIED (13) Bacteremia due to Streptococcus Code(s): R78.81 - BACTEREMIA; B95.5 - UNSP STREPTOCOCCUS THE [facility] Assessment/Plan 77 y.o. female with PMH of DM, HTN, HLD, Asthma, COPD, CKD, CVA presenting with SOB, cough/wheezing, fever for 3 days Streptococcal Bacteremia/Sepsis Acute hypoxemic respiratory failure Bibasilar PNA COPD exacerbation DM Morbid Obesity CKD HTN HLD --continue Ceftriaxone IV for total of 2 wks -- repeat blood culture no growth, pt alert/afebrile -- on steroid taper, wbc mildly elevated, continue monitor, vitals currently stable -- Pulmonary/Renal/Cardiology following awaiting arrangements to transfer to rehab
[2018-06-08] MEDS ORDERED: predniSONE 10 MG TABLET (UD) PO ONE (13:28)
[2018-06-08] MEDS: BUDESONIDE/FORMETEROL FUMARATE 160/4.5 mcg INHALER IH SCH ×2 (13:41→21:19)
--- NOTE | 2018-06-08 14:12 | PN ---
Progress Note (short form) - Note Progress Note: Renal follow up for CKD pt seen and examined at the bedside no sob, cp, abd pain, N/V/D Vital Signs Temperature 98.9 F 06/08/18 06:00 Pulse Rate 65 06/08/18 08:25 Respiratory Rate 18 06/08/18 08:26 Blood Pressure 142/81 06/08/18 08:25 O2 Sat by Pulse Oximetry (%) 98 06/08/18 08:26 Intake & Output 06/05/18 06/06/18 06/07/18 06/08/18 23:59 23:59 23:59 23:59 Intake Total 450 360 250 Output Total 1010 Balance -560 360 250 Weight 134.433 kg 133.628 kg NAD awake and alert RRR, No M/R CTA, dec Bs at lung bases + edema in LE CBC, BMP 06/08/18 05:30 06/08/18 05:30 Current Medications Acetaminophen (Tylenol -) 650 mg PO Q6H PRN PRN Reason: FEVER Last Admin: 06/08/18 10:59 Dose: 650 mg Albuterol/Ipratropium (Duoneb -) 1 amp NEB RQID [facility] Last Admin: 06/08/18 07:31 Dose: 1 amp Albuterol/Ipratropium (Duoneb -) 1 amp NEB Q4H PRN PRN Reason: SHORTNESS OF BREATH Last Admin: 06/07/18 23:28 Dose: 1 amp Amlodipine Besylate (Norvasc -) 5 mg PO DAILY [facility] Last Admin: 06/08/18 10:59 Dose: 5 mg Aspirin (Asa -) 81 mg PO DAILY [facility] Last Admin: 06/08/18 10:59 Dose: 81 mg Atorvastatin Calcium (Lipitor -) 40 mg PO HS [facility] Last Admin: 06/07/18 22:13 Dose: 40 mg Budesonide/Formoterol Fumarate (Symbicort 160/4.5mcg -) 2 puff IH BID [facility] Last Admin: 06/08/18 13:41 Dose: 2 puff Carvedilol (Coreg -) 25 mg PO BID [facility] Last Admin: 06/08/18 10:59 Dose: 25 mg Duloxetine HCl (Cymbalta -) 30 mg PO DAILY [facility] Last Admin: 06/08/18 10:59 Dose: 30 mg Furosemide (Lasix -) 80 mg PO BID@0600,1400 [facility] Last Admin: 06/08/18 06:36 Dose: 80 mg Heparin Sodium (Porcine) (Heparin -) 5,000 unit SQ TID [facility] Last Admin: 06/08/18 06:36 Dose: 5,000 unit IV Flush (Picc Line Flush) 8 ml IVPUSH PRN PRN PRN Reason: Protocol Ceftriaxone Sodium 2 gm/ (Sodium Chloride) 100 mls @ 200 mls/hr IVPB Q24H [facility] Last Admin: 06/07/18 12:29 Dose: 200 mls/hr Insulin Aspart (Novolog Vial Sliding Scale -) 1 vial SQ ACHS [facility]; Protocol Last Admin: 06/08/18 13:41 Dose: Not Given Insulin Detemir (Levemir Vial) 42 units SQ HS [facility] Last Admin: 06/07/18 22:14 Dose: 42 units Insulin Detemir (Levemir Vial) 10 units SQ DAILY@0700 [facility] Last Admin: 06/08/18 06:36 Dose: 10 units Isosorbide Mononitrate (Imdur -) 60 mg PO DAILY [facility] Last Admin: 06/08/18 10:58 Dose: 60 mg Levothyroxine Sodium (Synthroid -) 88 mcg PO 0700 [facility] Last Admin: 06/08/18 06:36 Dose: 88 mcg Melatonin (Melatonin) 5 mg PO HS PRN PRN Reason: INSOMNIA Last Admin: 06/07/18 23:06 Dose: 5 mg Mirtazapine (Remeron -) 15 mg PO HS [facility] Last Admin: 06/07/18 22:13 Dose: 15 mg Montelukast Sodium (Singulair -) 10 mg PO HS [facility] Last Admin: 06/07/18 22:13 Dose: 10 mg Pantoprazole Sodium (Protonix -) 40 mg PO DAILY [facility] Last Admin: 06/08/18 10:59 Dose: 40 mg Potassium Chloride (K-Dur -) 10 meq PO DAILY [facility] Last Admin: 06/08/18 10:59 Dose: 10 meq Senna (Senna -) 2 tab PO HS PRN PRN Reason: CONSTIPATION Last Admin: 06/07/18 22:13 Dose: 2 tab 77 year old AA woman with hx of 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
--- NOTE | 2018-06-08 15:08 | PN ---
Teaching Attending Note Name of Resident: Parveen Leonard ATTENDING PHYSICIAN STATEMENT I saw and evaluated the patient. I reviewed the resident's note and discussed the case with the resident. I agree with the resident's findings and plan as documented. SUBJECTIVE: no fever or chills. cont to have pain in her feet . OBJECTIVE: NAD, CV: RRR, no JVD Lungs :good air entry . no wheezes Abd : soft, NT, ND, NL BS Ext: b/l LE edema with pitting. R > L. tenderness on bl feet A/P 76-year-old female with history of CVA (residual R-hemiparesis, slurred speech) , DM Type II, COPD, CKD Stage 4, Pneumonia, PVD, HTN, Chronic R- lower extremity edema, diastolic heart failure , recent LE cellulites , and bacteremia who presented with SOB and was found tohave acute hypercapnic resp failure 1- Acute hypoxic hypercapnic resp failure due to acute COPD exacerbation. - last day of steroids today - cont symbicort - cont nebs - cont singular 2- B hemolytic strep bacteremia : - Cont ceftriaxone. day 7. will cont for one more week - repeat Blood cx negative to date 3- Tracheal lesion : need repeat CT to evaluate as out pt 4- DM : - cont levemir and SSI 5- H/o CKD: cr at base line 6- h/o Diastolic heart failure. not in exacerbation - cont home dose of lasix at 80 BID orally 7- HTN : cont imdur, coreg, and norvasc Dispo: [facility] will happen probably tomorrow PICC to be placed today or in am
[2018-06-08] MEDS ORDERED: INSULIN SLIDING SCALE (NOVOLOG) 1 VIAL SQ SCH (15:10)
[2018-06-08] MEDS ORDERED: Darbepoetin Alfa in Polysorbat 40 MCG/0.4 DISP.SYRIN SQ ONE (15:15)
--- NOTE | 2018-06-08 18:07 | PN ---
Physical Exam: SUBJECTIVE: Patient seen and examined at bedside. Afebrile overnight. Patient was on 3L O2 nasal canula this morning. Admits mild improvement to 8/10 pain in her B/L lower extremities at the feet today. Denies chest pain, palpitations, shortness of breath, cough, chest pain, palpitations, nausea, vomiting, diarrhea. OBJECTIVE: Vital Signs Period Temp Pulse Resp BP Sys/Mike Pulse Ox Last 24 Hr 98.1 F-98.9 F 65-68 18-19 112-154/66-81 98-100 GENERAL: The patient is awake, alert, in no acute distress. HEAD: Normal with no signs of trauma. EYES: PERRL, extraocular movements intact, sclera anicteric. ENT: Oropharynx clear without exudates, moist mucous membranes. NECK: Supple withut lymphadenopathy. LUNGS: On 3L nasal canula. Breath sounds equal, end-expiratory wheezes still auscultated B/L lungs upper and lower lobes. No crackles appreciated. No accessory muscle use observed upon my exam this morning. HEART: Regular rate and rhythm, +S1, S2 auscultated without murmur, rub or gallop. ABDOMEN: Soft, nontender, nondistended, normoactive bowel sounds, no guarding, no rebound, no hepatosplenomegaly appreciated. EXTREMITIES: 2+ radial and 1+ DP pulses B/L. 3+ pitting edema right lower extremity. 1+ pitting edema left lower extremity. NEUROLOGICAL: LUE strength 3/5 for flexion, extension. RUE strength 2/5 for flexion, extension. LUE abducion strength 2/5. RUE abduction strength 1/5. LLE flexion, extension 2/5. RLE flexion strength 1/5 (limited by pain). LLE extension strength 1/5 (limited by pain). Dorsiflexion, plantaflexion RLE 1/5 ( limited by pain). Dorsiflexion, plantarflexion LLE 1/5 (limited by pain). SKIN: Warm, dry. Left leg skin appears shiny today. Laboratory Results - last 24 hr 06/07/18 06/08/18 06/08/18 22:11 05:30 05:30 WBC 14.0 H RBC 3.58 L Hgb 9.4 L Hct 29.1 L MCV 81.3 MCH 26.2 MCHC 32.2 RDW 17.3 H Plt Count 198 MPV 9.2 Absolute Neuts (auto) 11.5 H Neutrophils % 82.2 Neutrophils % (Manual) 71.7 Band Neutrophils % 1.0 Lymphocytes % 11.5 Lymphocytes % (Manual) 8.1 D Monocytes % 5.5 Monocytes % (Manual) 8 Eosinophils % 0.5 D Eosinophils % (Manual) 0.0 Basophils % 0.3 Basophils % (Manual) 0.0 Myelocytes % (Man) 7 H D Promyelocytes % (Man) 0 Blast Cells % (Manual) 0 Nucleated RBC % 0 Metamyelocytes 4 H D Hypochromia 0 Platelet Estimate Normal Polychromasia 1+ Poikilocytosis 1+ Anisocytosis 1+ Microcytosis 1+ Macrocytosis 1+ Schistocytes 1+ Sodium 134 L Potassium 4.4 Chloride 92 L Carbon Dioxide 31 Anion Gap 11 BUN 95 H Creatinine 2.3 H Creat Clearance w eGFR 20.56 POC Glucometer 281 Random Glucose 140 H Calcium 8.7 06/08/18 06/08/18 06/08/18 06:34 11:56 17:14 WBC RBC Hgb Hct MCV MCH MCHC RDW Plt Count MPV Absolute Neuts (auto) Neutrophils % Neutrophils % (Manual) Band Neutrophils % Lymphocytes % Lymphocytes % (Manual) Monocytes % Monocytes % (Manual) Eosinophils % Eosinophils % (Manual) Basophils % Basophils % (Manual) Myelocytes % (Man) Promyelocytes % (Man) Blast Cells % (Manual) Nucleated RBC % Metamyelocytes Hypochromia Platelet Estimate Polychromasia Poikilocytosis Anisocytosis Microcytosis Macrocytosis Schistocytes Sodium Potassium Chloride Carbon Dioxide Anion Gap BUN Creatinine Creat Clearance w eGFR POC Glucometer 137 70 90 Random Glucose Calcium Active Medications Generic Name Dose Route Start Last Admin Trade Name Freq PRN Reason Stop Dose Admin Acetaminophen 650 mg 06/02/18 17:51 06/08/18 10:59 Tylenol - PO 650 mg Q6H PRN Administration FEVER Albuterol/Ipratropium 1 amp 06/08/18 08:00 06/08/18 16:10 Duoneb - NEB 1 amp RQID IWONA Administration Albuterol/Ipratropium 1 amp 06/07/18 22:52 06/07/18 23:28 Duoneb - NEB 1 amp Q4H PRN Administration SHORTNESS OF BREATH Amlodipine Besylate 5 mg 06/03/18 10:00 06/08/18 10:59 Norvasc - PO 5 mg DAILY IWONA Administration Aspirin 81 mg 06/02/18 10:00 06/08/18 10:59 Asa - PO 81 mg DAILY IWONA Administration Atorvastatin Calcium 40 mg 06/02/18 22:00 06/07/18 22:13 Lipitor - PO 40 mg HS IWONA Administration Budesonide/Formoterol Fumarate 2 puff 06/02/18 11:15 06/08/18 13:41 Symbicort 160/4.5mcg - IH 2 puff BID IWONA Administration Carvedilol 25 mg 06/02/18 22:00 06/08/18 10:59 Coreg - PO 25 mg BID IWONA Administration Duloxetine HCl 30 mg 06/03/18 10:00 06/08/18 10:59 Cymbalta - PO 30 mg DAILY IWONA Administration Furosemide 80 mg 06/03/18 06:00 06/08/18 17:12 Lasix - PO 80 mg BID@0600,1400 IWONA Administration Heparin Sodium (Porcine) 5,000 unit 06/02/18 05:00 06/08/18 17:12 Heparin - SQ 5,000 unit TID IWONA Administration IV Flush 8 ml 06/07/18 10:31 Picc Line Flush IVPUSH PRN PRN Protocol Ceftriaxone Sodium 2 gm/ 100 mls @ 200 mls/hr 06/04/18 12:07 06/08/18 12:00 Sodium Chloride IVPB 200 mls/hr Q24H IWONA Administration Insulin Aspart 1 vial 06/08/18 16:30 06/08/18 17:12 Novolog Vial Sliding Scale - SQ Not Given TIDAC ON LICENSE OF [facility] Protocol Insulin Detemir 42 units 06/03/18 22:00 06/07/18 22:14 Levemir Vial SQ 42 units HS IWONA Administration Insulin Detemir 10 units 06/04/18 07:00 06/08/18 06:36 Levemir Vial SQ 10 units DAILY@0700 IWONA Administration Isosorbide Mononitrate 60 mg 06/03/18 10:00 06/08/18 10:58 Imdur - PO 60 mg DAILY IWONA Administration Levothyroxine Sodium 88 mcg 06/02/18 07:00 06/08/18 06:36 Synthroid - PO 88 mcg 0700 IWONA Administration Melatonin 5 mg 06/07/18 20:07 06/07/18 23:06 Melatonin PO 5 mg HS PRN Administration INSOMNIA Mirtazapine 15 mg 06/02/18 22:00 06/07/18 22:13 Remeron - PO 15 mg HS IWONA Administration Montelukast Sodium 10 mg 06/02/18 22:00 06/07/18 22:13 Singulair - PO 10 mg HS IWONA Administration Pantoprazole Sodium 40 mg 06/02/18 13:30 06/08/18 10:59 Protonix - PO 40 mg DAILY IWONA Administration Potassium Chloride 10 meq 06/05/18 12:30 06/08/18 10:59 K-Dur - PO 10 meq DAILY IWONA Administration Senna 2 tab 06/02/18 18:27 06/07/18 22:13 Senna - PO 2 tab HS PRN Administration CONSTIPATION ASSESSMENT/PLAN: Patient is a 77 year old female with history of COPD (on overnight BiPAP at home ), asthma, obesity, chronic kidney disease, CVA with residual right-sided hemiparesis, coronary artery disease (s/p cardiac cath), HTN, HLD, DM, anemia (s /p past transfusions), presents with complaint of shortness of breath. Shortness of breath -Improving. Weaning patient off nasal canula today, closely monitoring O2 saturation. Currently 99% O2 saturation on room air. -Prednisone taper- 10mg tomorrow -Continue Singulair 10mg PO HS -ID consult (Dr. Rosado) appreciated: Continue Ceftriaxone 2gm IV QD. Tomorrow will be last day of antibiotics. -IV antibiotics switched from D5w to normal saline to help improve blood glucose control. B/L Leg pain -Pain is sharp, 8/10 B/L feet today -Likely secondary to diabetic neuropathy -R/O DVT- Patient refuses B/L lower extremities doppler, as she states she has had one a few days prior. Explained reason for the test, benefits of identifying possible clot in the leg, and dangers of progression of clot, diminished blood flow to the leg, and potential pulmonary embolism, or . Patient displayed understanding the risks and benefits. -Patient is already on Duloxetine 30mg PO daily. -Tylenol 650mg Q6H PRN R/O Endocarditis -Cardiology consult (Dr. Herndon) appreciated: Patient had similar presentation on 03/2017 with beta hemolytic strep. VERONICA done at that time did not show evidence of endocarditis. Current echo shows no significant valvular regurgitation. Congestive heart failure -BNP 1074.36 -Reinstate home medication Lasix 80mg PO BID -Cardiac echo shows poor study d/t poor visualization of LV, MV, TV. LVEF could not be calculated. regional wall abnormalities could not be excluded. -Strict daily Intake and Output Right lower extremity edema -Possibly due to fluid overload, secondary to CHF -3+ pitting edema today- exquisitely tender (left leg 1+ pitting edema) Chronic kidney disease -BUN 90, Cr 2.4 today (2.3 baseline on prior admission) -Nephrology consult (Dr. Jaun Carlos) appreciated: renal function is stable. Will continue Lasix, steroids, and antibiotics. No indication at this time for 3 % saline for hyponatremia. HTN -Reinstate home medication Norvasc 5mg PO QD -Reinstate home medication Imdur 60mg PO QD -Reinstate home medication Coreg 25mg PO BID Hypothyroidism -Continue home medication: Synthroid 88mcg QD DM -Levemir 10 units in AM, 42 units in evening. -Insulin sliding scale -Fingerstick BGM ACHS HLD -Continue home medication: Lipitor 40mg HS Constipation -Senna 2 tablets QD PRN FEN -No IV fluids at this time. Patient tolerates PO fluids -Will follow CMP -Diabetic, low salt, low cholesterol diet Prophylaxis -Heparin 5000u SQ TID Disposition: -Continue care in Telemetry floor. Visit type - Emergency Visit Emergency Visit: Yes ED Registration Date: 06/02/18 Care time: The patient presented to the Emergency Department on the above date and was hospitalized for further evaluation of their emergent condition. - New Patient This patient is new to me today: No - Critical Care Critical Care patient: No - Discharge Referral Referred to [facility] Med P.C.: No
[2018-06-08] MEDS ORDERED: IBUPROFEN 400 MG TABLET (FP) PO ONE (20:08)
[2018-06-08] MEDS ORDERED: PT OWN MED DRAWER 7, Y5N ONE (21:07)
[2018-06-08] MEDS: MELATONIN 5 MG TABLETS PO PRN (21:20)
[2018-06-08] MEDS: SENNOSIDES 8.6MG TABLET (FP) PO PRN (21:20)
[2018-06-08] MEDS: MONTELUKAST NA 10 MG TABLET PO SCH (21:20)
[2018-06-08] MEDS: ATORVASTATIN CA 40 MG TABLET (FP) PO SCH (21:20)
[2018-06-08] MEDS: MIRTAZAPINE 15 MG TABLET (FP) PO SCH (21:20)
[2018-06-08] MEDS: traMADol HCL 50 MG TABLET PO PRN (21:20)
[2018-06-09] MEDS: traMADol HCL 50 MG TABLET PO PRN (05:48)
[2018-06-09] MEDS: FUROSEMIDE 40 MG TABLET (FP) PO SCH ×2 (05:49→13:21)
[2018-06-09] MEDS: INSULIN (LEVEMIR) 100 UNITS/ML UNITS SQ SCH (06:12)
[2018-06-09] MEDS: INSULIN SLIDING SCALE (NOVOLOG) 1 VIAL SQ SCH ×3 (06:12→16:00)
[2018-06-09] MEDS: LEVOTHYROXINE NA 88 MCG TABLET (FP) PO SCH (06:12)
[2018-06-09 06:39] LABS: BASO % 0.5 % (0-2.0); EOS % 0.7 % (0-4.5); HEMATOCRIT 28.8 % (32.4-45.2); HEMOGLOBIN 9.3 GM/dL (10.7-15.3); LYMPH % 11.3 % (8-40); MCH 26.5 pg (25.7-33.7); MCHC 32.3 g/dl (32.0-36.0); MEAN CELL VOLUME 81.9 fl (80-96); MEAN PLT VOLUME 9.3 fl (7.5-11.1); MONO % 6.7 % (3.8-10.2); NEUT % 80.8 % (42.8-82.8); PLATELET COUNT 210 K/MM3 (134-434); RBC 3.52 M/mm3 (3.60-5.2); RDW 17.7 % (11.6-15.6); WHITE BLOOD COUNT 14.2 K/mm3 (4.0-10.0)
[2018-06-09 07:15] LABS: ALBUMIN 2.6 g/dl (3.4-5.0); ANION GAP 12 MMOL/L (8-16); BLOOD UREA NITROGEN 92 mg/dL (7-18); CALCIUM 8.9 mg/dL (8.5-10.1); CHLORIDE 93 mmol/L (98-107); CO2 31 mmol/L (21-32); GLUCOSE,RANDOM 146 mg/dL (74-106); POTASSIUM 4.5 mmol/L (3.5-5.1); SODIUM 136 mmol/L (136-145)
[2018-06-09 07:19] LABS: ALK PHOS 76 U/L (45-117); BILIRUBIN,TOTAL 0.3 mg/dL (0.2-1.0); CREATININE 2.3 mg/dL (0.55-1.02); SGOT/AST 18 U/L (15-37); SGPT/ALT 23 U/L (12-78); TOT PROT 6.4 g/dl (6.4-8.2)
[2018-06-09] MEDS: ALBUTEROL SO4 2.5/IPRATROPIUM 0.5 INH SOL 3 ML VIAL.NEB. NEB SCH ×4 (07:40→20:00)
--- NOTE | 2018-06-09 08:31 | PN ---
Teaching Attending Note Name of Resident: Parveen Leonard ATTENDING PHYSICIAN STATEMENT I saw and evaluated the patient. I reviewed the resident's note and discussed the case with the resident. I agree with the resident's findings and plan as documented. SUBJECTIVE: OBJECTIVE: Vital Signs Temperature 98.3 F 06/09/18 06:00 Pulse Rate 63 06/09/18 06:00 Respiratory Rate 16 06/09/18 06:00 Blood Pressure 129/65 06/09/18 06:00 O2 Sat by Pulse Oximetry (%) 100 06/08/18 21:00 CBCD WBC 14.2 K/mm3 (4.0-10.0) H 06/09/18 05:30 RBC 3.52 M/mm3 (3.60-5.2) L 06/09/18 05:30 Hgb 9.3 GM/dL (10.7-15.3) L 06/09/18 05:30 Hct 28.8 % (32.4-45.2) L 06/09/18 05:30 MCV 81.9 fl (80-96) 06/09/18 05:30 MCHC 32.3 g/dl (32.0-36.0) 06/09/18 05:30 RDW 17.7 % (11.6-15.6) H 06/09/18 05:30 Plt Count 210 K/MM3 (134-434) 06/09/18 05:30 MPV 9.3 fl (7.5-11.1) 06/09/18 05:30 CMP Sodium 136 mmol/L (136-145) 06/09/18 05:30 Potassium 4.5 mmol/L (3.5-5.1) 06/09/18 05:30 Chloride 93 mmol/L (98-107) L 06/09/18 05:30 Carbon Dioxide 31 mmol/L (21-32) 06/09/18 05:30 Anion Gap 12 MMOL/L (8-16) 06/09/18 05:30 BUN 92 mg/dL (7-18) H 06/09/18 05:30 Creatinine 2.3 mg/dL (0.55-1.02) H 06/09/18 05:30 Creat Clearance w eGFR 20.56 (>60) 06/09/18 05:30 Random Glucose 146 mg/dL (74-106) H 06/09/18 05:30 Calcium 8.9 mg/dL (8.5-10.1) 06/09/18 05:30 Total Bilirubin 0.3 mg/dL (0.2-1.0) 06/09/18 05:30 AST 18 U/L (15-37) 06/09/18 05:30 ALT 23 U/L (12-78) 06/09/18 05:30 Alkaline Phosphatase 76 U/L (45-117) 06/09/18 05:30 Total Protein 6.4 g/dl (6.4-8.2) 06/09/18 05:30 Albumin 2.6 g/dl (3.4-5.0) L 06/09/18 05:30 CARDIAC ENZYMES Troponin I < 0.02 ng/ml (0.00-0.05) 06/02/18 07:35 Current Medications Generic Name Dose Route Start Last Admin Trade Name Freq PRN Reason Stop Dose Admin Acetaminophen 650 mg 06/02/18 17:51 06/08/18 10:59 Tylenol - PO 650 mg Q6H PRN Administration FEVER Albuterol/Ipratropium 1 amp 06/08/18 08:00 06/08/18 20:37 Duoneb - NEB 1 amp RQID IWONA Administration Albuterol/Ipratropium 1 amp 06/07/18 22:52 06/07/18 23:28 Duoneb - NEB 1 amp Q4H PRN Administration SHORTNESS OF BREATH Amlodipine Besylate 5 mg 06/03/18 10:00 06/08/18 10:59 Norvasc - PO 5 mg DAILY IWONA Administration Aspirin 81 mg 06/02/18 10:00 06/08/18 10:59 Asa - PO 81 mg DAILY IWONA Administration Atorvastatin Calcium 40 mg 06/02/18 22:00 06/08/18 21:20 Lipitor - PO 40 mg HS IWONA Administration Budesonide/Formoterol Fumarate 2 puff 06/02/18 11:15 06/08/18 21:19 Symbicort 160/4.5mcg - IH 2 puff BID IWONA Administration Carvedilol 25 mg 06/02/18 22:00 06/08/18 21:20 Coreg - PO 25 mg BID IWONA Administration Duloxetine HCl 30 mg 06/03/18 10:00 06/08/18 10:59 Cymbalta - PO 30 mg DAILY IWONA Administration Furosemide 80 mg 06/03/18 06:00 06/09/18 05:49 Lasix - PO 80 mg BID@0600,1400 IWONA Administration IV Flush 8 ml 06/07/18 10:31 Picc Line Flush IVPUSH PRN PRN Protocol Ceftriaxone Sodium 2 gm/ 100 mls @ 200 mls/hr 06/04/18 12:07 06/08/18 12:00 Sodium Chloride IVPB 200 mls/hr Q24H IWONA Administration Insulin Aspart 1 vial 06/08/18 16:30 06/09/18 06:12 Novolog Vial Sliding Scale - SQ 2 units TIDAC IWONA Administration Protocol Insulin Detemir 42 units 06/03/18 22:00 06/08/18 21:28 Levemir Vial SQ 42 units HS IWONA Administration Insulin Detemir 10 units 06/04/18 07:00 06/09/18 06:12 Levemir Vial SQ 10 units DAILY@0700 IWONA Administration Isosorbide Mononitrate 60 mg 06/03/18 10:00 06/08/18 10:58 Imdur - PO 60 mg DAILY IWONA Administration Levothyroxine Sodium 88 mcg 06/02/18 07:00 06/09/18 06:12 Synthroid - PO 88 mcg 0700 IWONA Administration Melatonin 5 mg 06/07/18 20:07 06/08/18 21:20 Melatonin PO 5 mg HS PRN Administration INSOMNIA Mirtazapine 15 mg 06/02/18 22:00 06/08/18 21:20 Remeron - PO 15 mg HS IWONA Administration Montelukast Sodium 10 mg 06/02/18 22:00 06/08/18 21:20 Singulair - PO 10 mg HS IWONA Administration Pantoprazole Sodium 40 mg 06/02/18 13:30 06/08/18 10:59 Protonix - PO 40 mg DAILY IWONA Administration Potassium Chloride 10 meq 06/05/18 12:30 06/08/18 10:59 K-Dur - PO 10 meq DAILY IWONA Administration Senna 2 tab 06/02/18 18:27 06/07/18 22:13 Senna - PO 2 tab HS PRN Administration CONSTIPATION Tramadol HCl 50 mg 06/08/18 20:11 06/09/18 05:48 Ultram - PO 50 mg Q4H PRN Administration PAIN LEVEL 4 - 6 Home Medications Medication Instructions Recorded Albuterol Sulfate Inhaler - 1 - 2 inh PO QID #1 inhaler 06/02/18 [Ventolin HFA Inhaler -] Amlodipine Besylate [Norvasc -] 5 mg PO DAILY 06/02/18 Aspirin [ASA -] 81 mg PO DAILY 06/02/18 Atorvastatin Ca [Lipitor] 40 mg PO HS 06/02/18 Carvedilol [Coreg -] 25 mg PO BID 06/02/18 Duloxetine HCl 30 mg PO DAILY 06/02/18 Furosemide [Lasix] 80 mg PO BID 06/02/18 Isosorbide Mononitrate [Imdur -] 60 mg PO DAILY 06/02/18 Levothyroxine [Synthroid -] 75 mcg PO DAILY 06/02/18 Mirtazapine 15 mg PO DAILY 06/02/18 Montelukast Sodium [Singulair] 10 mg PO DAILY 06/02/18 Salmeterol/Fluticasone [Advair 1 inh IH DAILY #30 inh 06/02/18 100Mcg/50Mcg -] Sennosides [Senna] 8.6 mg PO PRN PRN #30 tablet 06/02/18 Insulin (Levemir) [Levemir Vial] 10 unit SQ DAILY #1 vial 06/03/18 Insulin (Levemir) [Levemir Vial] 32 unit SQ HS #1 vial 06/03/18 Insulin Aspart [Novolog] See Protocol SQ AC 06/03/18 Ceftriaxone 2 gm-D5w Bag 2 gm IV DAILY 14 Days #14 ml 06/07/18 ASSESSMENT AND PLAN: 76-year-old female with history of CVA (residual R-hemiparesis, slurred speech) , DM Type II, COPD, CKD Stage 4, Pneumonia, PVD, HTN, Chronic R- lower extremity edema, diastolic heart failure , recent LE cellulites , and bacteremia who presented with SOB and was found tohave acute hypercapnic resp failure # Acute hypoxic hypercapnic resp failure due to acute COPD exacerbation. completed steroid, continue symbicort. nebs and singular # B hemolytic strep bacteremia :completed ceftriaxone x 7 dasy . will cont for one more week - repeat Blood cx negative to date # Tracheal lesion : need repeat CT to evaluate as out pt # DM : cont levemir and SSI # H/o CKD: cr at base line # Hx Diastolic heart failure. not in exacerbation :cont home dose of lasix at 80 BID orally # HTN : cont imdur, coreg, and norvasc Dispo: d/w child support case officer. to be dc to [facility] PICC placement.
[2018-06-09] MEDS ORDERED: traMADol HCL 50 MG TABLET PO PRN (09:43)
[2018-06-09] MEDS: BUDESONIDE/FORMETEROL FUMARATE 160/4.5 mcg INHALER IH SCH ×2 (10:00→20:13)
[2018-06-09] MEDS: CARVEDILOL 25 MG TABLET (FP) PO SCH (11:16)
[2018-06-09] MEDS: ISOSORBIDE MONONITRATE 60 MG TAB.SR.24H (FP) PO SCH (11:16)
[2018-06-09] MEDS: DULoxetine HCL 30 MG CAPSULE.DR (FP) PO SCH (11:16)
[2018-06-09] MEDS: ASPIRIN 81 MG CHEWABLE TABLETS PO SCH (11:16)
[2018-06-09] MEDS: POTASSIUM CHLORIDE TABS 10 MEQ TABLET.ER (FP) PO SCH (11:16)
[2018-06-09] MEDS: amLODIPine BESYLATE 5 MG TABLET (FP) PO SCH (11:16)
[2018-06-09 11:55] LABS: ACANTHOCYTES 0; ANISOCYTOSIS 0; HELMET CELLS 0; HOWELL-JOLLY BODIES 0; MACROCYTOSIS 0; OVALOCYTE 0; PLATELET ESTIMATE NORMAL; ROULEAU 0; SICKELED CELLS 0; TARGET CELLS 0; TEAR DROP CELLS 0; TOXIC GRANULATION 0
--- NOTE | 2018-06-09 12:17 | PN ---
Progress Note (short form) - Note Progress Note: s: no events, no chest pain, palps, dizzy, short of breath, edema. foot pain improving Tele: sinus, sb, no events Current Medications Acetaminophen (Tylenol -) 650 mg PO Q6H PRN PRN Reason: FEVER Last Admin: 06/08/18 10:59 Dose: 650 mg Albuterol/Ipratropium (Duoneb -) 1 amp NEB RQID [facility] Last Admin: 06/09/18 11:30 Dose: 1 amp Albuterol/Ipratropium (Duoneb -) 1 amp NEB Q4H PRN PRN Reason: SHORTNESS OF BREATH Last Admin: 06/07/18 23:28 Dose: 1 amp Amlodipine Besylate (Norvasc -) 5 mg PO DAILY [facility] Last Admin: 06/09/18 11:16 Dose: 5 mg Aspirin (Asa -) 81 mg PO DAILY [facility] Last Admin: 06/09/18 11:16 Dose: 81 mg Atorvastatin Calcium (Lipitor -) 40 mg PO HS [facility] Last Admin: 06/08/18 21:20 Dose: 40 mg Budesonide/Formoterol Fumarate (Symbicort 160/4.5mcg -) 2 puff IH BID [facility] Last Admin: 06/08/18 21:19 Dose: 2 puff Carvedilol (Coreg -) 25 mg PO BID [facility] Last Admin: 06/09/18 11:16 Dose: 25 mg Duloxetine HCl (Cymbalta -) 30 mg PO DAILY [facility] Last Admin: 06/09/18 11:16 Dose: 30 mg Furosemide (Lasix -) 80 mg PO BID@0600,1400 [facility] Last Admin: 06/09/18 05:49 Dose: 80 mg IV Flush (Picc Line Flush) 8 ml IVPUSH PRN PRN PRN Reason: Protocol Ceftriaxone Sodium 2 gm/ (Sodium Chloride) 100 mls @ 200 mls/hr IVPB Q24H [facility] Last Admin: 06/08/18 12:00 Dose: 200 mls/hr Insulin Aspart (Novolog Vial Sliding Scale -) 1 vial SQ TIDAC [facility]; Protocol Last Admin: 06/09/18 06:12 Dose: 2 units Insulin Detemir (Levemir Vial) 42 units SQ [facility] Last Admin: 06/08/18 21:28 Dose: 42 units Insulin Detemir (Levemir Vial) 10 units SQ DAILY@0700 [facility] Last Admin: 06/09/18 06:12 Dose: 10 units Isosorbide Mononitrate (Imdur -) 60 mg PO DAILY [facility] Last Admin: 06/09/18 11:16 Dose: 60 mg Levothyroxine Sodium (Synthroid -) 88 mcg PO 0700 [facility] Last Admin: 06/09/18 06:12 Dose: 88 mcg Melatonin (Melatonin) 5 mg PO HS PRN PRN Reason: INSOMNIA Last Admin: 06/08/18 21:20 Dose: 5 mg Mirtazapine (Remeron -) 15 mg PO HS [facility] Last Admin: 06/08/18 21:20 Dose: 15 mg Montelukast Sodium (Singulair -) 10 mg PO HS [facility] Last Admin: 06/08/18 21:20 Dose: 10 mg Pantoprazole Sodium (Protonix -) 40 mg PO DAILY [facility] Last Admin: 06/08/18 10:59 Dose: 40 mg Potassium Chloride (K-Dur -) 10 meq PO DAILY [facility] Last Admin: 06/09/18 11:16 Dose: 10 meq Senna (Senna -) 2 tab PO HS PRN PRN Reason: CONSTIPATION Last Admin: 06/07/18 22:13 Dose: 2 tab Tramadol HCl (Ultram -) 25 mg PO Q12H PRN PRN Reason: PAIN LEVEL 4 - 6 - Objective Vital Signs Period Temp Pulse Resp BP Sys/Mike Pulse Ox Last 24 Hr 98.0 F-98.7 F 60-73 16-22 112-143/55-76 100 Constitutional: Yes: No Distress, Calm Eyes: Yes: WNL HENT: Yes: WNL Neck: Yes: WNL Cardiovascular: Yes: Regular Rate and Rhythm Respiratory: Yes: CTA Bilaterally Gastrointestinal: Yes: Abdomen, Obese Musculoskeletal: Yes: WNL Extremities: Yes: WNL Edema: Yes Assessment/Plan a/p: 77 yo with h/o HTN, HL CVA (Rt hemiparesis), CKD, diastolic chf, IDDM, SHANE , anemia, COPD, hypothyroid, obesity here with sob. sob, pna, copd: -cont abx, steroids per primary team bacteremia: - had same in 03/2017, with same beta hemolytic strep. VERONICA 03/2017 without evidence of endocarditis. -As per Dr. Hernandez: reviewed current echo and there is no significant valvular regurgitation. - cont abx per ID, defer VERONICA as cultures negative -Last Bld Cx from 06/01 with B-strep Group G. Defer to ID for surveillance Cx. diastolic HF -stable, euvolemic - cont po lasix hld - on atorva htn -stable on current meds cva - on asa, statin CKD - stable shane - on bipap at night
[2018-06-09 12:18] LABS: MAGNESIUM 2.4 mg/dL (1.8-2.4); PHOSPHOROUS 4.4 mg/dL (2.5-4.9)
--- NOTE | 2018-06-09 12:24 | PN ---
Progress Note, Physician History of Present Illness: pulmonary alert,feeling better,-resp distress - Current Medication List Current Medications: Active Medications Acetaminophen (Tylenol -) 650 mg PO Q6H PRN PRN Reason: FEVER Last Admin: 06/08/18 10:59 Dose: 650 mg Albuterol/Ipratropium (Duoneb -) 1 amp NEB RQID [facility] Last Admin: 06/09/18 11:30 Dose: 1 amp Albuterol/Ipratropium (Duoneb -) 1 amp NEB Q4H PRN PRN Reason: SHORTNESS OF BREATH Last Admin: 06/07/18 23:28 Dose: 1 amp Amlodipine Besylate (Norvasc -) 5 mg PO DAILY [facility] Last Admin: 06/09/18 11:16 Dose: 5 mg Aspirin (Asa -) 81 mg PO DAILY [facility] Last Admin: 06/09/18 11:16 Dose: 81 mg Atorvastatin Calcium (Lipitor -) 40 mg PO HS [facility] Last Admin: 06/08/18 21:20 Dose: 40 mg Budesonide/Formoterol Fumarate (Symbicort 160/4.5mcg -) 2 puff IH BID [facility] Last Admin: 06/08/18 21:19 Dose: 2 puff Carvedilol (Coreg -) 25 mg PO BID [facility] Last Admin: 06/09/18 11:16 Dose: 25 mg Duloxetine HCl (Cymbalta -) 30 mg PO DAILY [facility] Last Admin: 06/09/18 11:16 Dose: 30 mg Furosemide (Lasix -) 80 mg PO BID@0600,1400 [facility] Last Admin: 06/09/18 05:49 Dose: 80 mg IV Flush (Picc Line Flush) 8 ml IVPUSH PRN PRN PRN Reason: Protocol Ceftriaxone Sodium 2 gm/ (Sodium Chloride) 100 mls @ 200 mls/hr IVPB Q24H [facility] Last Admin: 06/08/18 12:00 Dose: 200 mls/hr Insulin Aspart (Novolog Vial Sliding Scale -) 1 vial SQ TIDAC [facility]; Protocol Last Admin: 06/09/18 06:12 Dose: 2 units Insulin Detemir (Levemir Vial) 42 units SQ HS [facility] Last Admin: 06/08/18 21:28 Dose: 42 units Insulin Detemir (Levemir Vial) 10 units SQ DAILY@0700 [facility] Last Admin: 06/09/18 06:12 Dose: 10 units Isosorbide Mononitrate (Imdur -) 60 mg PO DAILY [facility] Last Admin: 06/09/18 11:16 Dose: 60 mg Levothyroxine Sodium (Synthroid -) 88 mcg PO 0700 [facility] Last Admin: 06/09/18 06:12 Dose: 88 mcg Melatonin (Melatonin) 5 mg PO HS PRN PRN Reason: INSOMNIA Last Admin: 06/08/18 21:20 Dose: 5 mg Mirtazapine (Remeron -) 15 mg PO HS [facility] Last Admin: 06/08/18 21:20 Dose: 15 mg Montelukast Sodium (Singulair -) 10 mg PO HS [facility] Last Admin: 06/08/18 21:20 Dose: 10 mg Pantoprazole Sodium (Protonix -) 40 mg PO DAILY [facility] Last Admin: 06/08/18 10:59 Dose: 40 mg Potassium Chloride (K-Dur -) 10 meq PO DAILY [facility] Last Admin: 06/09/18 11:16 Dose: 10 meq Senna (Senna -) 2 tab PO HS PRN PRN Reason: CONSTIPATION Last Admin: 06/07/18 22:13 Dose: 2 tab Tramadol HCl (Ultram -) 25 mg PO Q12H PRN PRN Reason: PAIN LEVEL 4 - 6 - Objective Vital Signs: Vital Signs Temperature 98.3 F 06/09/18 06:00 Pulse Rate 60 06/09/18 09:31 Respiratory Rate 22 06/09/18 09:31 Blood Pressure 112/55 06/09/18 09:31 O2 Sat by Pulse Oximetry (%) 100 06/08/18 21:00 Constitutional: Yes: Well Nourished, Calm, Obese Eyes: Yes: WNL HENT: Yes: WNL Neck: Yes: WNL Cardiovascular: Yes: Regular Rate and Rhythm, S1, S2 Respiratory: Yes: Diminished Gastrointestinal: Yes: Normal Bowel Sounds, Soft Extremities: Yes: WNL Edema: Yes Labs: CBC, BMP 06/09/18 05:30 06/09/18 05:30 INR, PTT INR 1.15 (0.83-1.09) H 06/01/18 23:45 Problem List - Problems (1) Acute hypercapnic respiratory failure Code(s): J96.02 - ACUTE RESPIRATORY FAILURE WITH HYPERCAPNIA (2) COPD exacerbation Code(s): J44.1 - CHRONIC OBSTRUCTIVE PULMONARY DISEASE W (ACUTE) EXACERBATION (3) Morbid obesity Code(s): E66.01 - MORBID (SEVERE) OBESITY DUE TO EXCESS CALORIES (4) CKD (chronic kidney disease) Code(s): N18.9 - CHRONIC KIDNEY DISEASE, UNSPECIFIED Qualifiers: Qualified Code(s): N18.9 - Chronic kidney disease, unspecified (5) Anemia Code(s): D64.9 - ANEMIA, UNSPECIFIED Qualifiers: Qualified Code(s): D50.0 - Iron deficiency anemia secondary to blood loss ( chronic) (6) Asthma Code(s): J45.909 - UNSPECIFIED ASTHMA, UNCOMPLICATED (7) Diabetes Code(s): E11.9 - TYPE 2 DIABETES MELLITUS WITHOUT COMPLICATIONS (8) HTN (hypertension) Code(s): I10 - ESSENTIAL (PRIMARY) HYPERTENSION (9) Sleep apnea Code(s): G47.30 - SLEEP APNEA, UNSPECIFIED (10) CVA (cerebral vascular accident) Code(s): I63.9 - CEREBRAL INFARCTION, UNSPECIFIED (11) Acute respiratory failure with hypoxemia Code(s): J96.01 - ACUTE RESPIRATORY FAILURE WITH HYPOXIA (12) Pneumonia Code(s): J18.9 - PNEUMONIA, UNSPECIFIED ORGANISM Assessment/Plan IMP ACUTE HYPOXEMIC/HYPERCAPNEIC RESPIRATORY FAILURE IMPROVING BIBASILAR CONSOLIDATIONS PNEUMONIA/ATELECTASIS ASTHMA/COPD EXACERBATION IMPROVING BETA HEMOLYTIC STREP BACTEREMIA TRACHEAL DENSITY LIKELY RETAINED SECRETIONS ROSITA CKD DM HTN MORBID OBESITY H/O CVA PLAN IV ABX PER ID INHALED BRONCHODILATORS O2 NIPPV NEEDED F/U CHEST CT TO DOCUMENT RESOLUTION OF INFILTRATES,TRACHEAL LESION MONITOR LYTES,RENAL FUNCTION ANALGESICS DR ZHU Problem List - Problems (1) Acute hypercapnic respiratory failure Code(s): J96.02 - ACUTE RESPIRATORY FAILURE WITH HYPERCAPNIA (2) COPD exacerbation Code(s): J44.1 - CHRONIC OBSTRUCTIVE PULMONARY DISEASE W (ACUTE) EXACERBATION (3) Morbid obesity Code(s): E66.01 - MORBID (SEVERE) OBESITY DUE TO EXCESS CALORIES (4) CKD (chronic kidney disease) Code(s): N18.9 - CHRONIC KIDNEY DISEASE, UNSPECIFIED Qualifiers: Chronic kidney disease stage: unspecified stage Qualified Code(s): N18.9 - Chronic kidney disease, unspecified (5) Anemia Code(s): D64.9 - ANEMIA, UNSPECIFIED Qualifiers: Iron deficiency anemia type: chronic blood loss (6) Asthma Code(s): J45.909 - UNSPECIFIED ASTHMA, UNCOMPLICATED (7) Diabetes Code(s): E11.9 - TYPE 2 DIABETES MELLITUS WITHOUT COMPLICATIONS (8) HTN (hypertension) Code(s): I10 - ESSENTIAL (PRIMARY) HYPERTENSION (9) Sleep apnea Code(s): G47.30 - SLEEP APNEA, UNSPECIFIED (10) CVA (cerebral vascular accident) Code(s): I63.9 - CEREBRAL INFARCTION, UNSPECIFIED (11) Acute respiratory failure with hypoxemia Code(s): J96.01 - ACUTE RESPIRATORY FAILURE WITH HYPOXIA (12) Pneumonia Code(s): J18.9 - PNEUMONIA, UNSPECIFIED ORGANISM
--- NOTE | 2018-06-09 12:24 | PN ---
Progress Note, Physician History of Present Illness: Pt is alert, afebrile. No shortness of breath. She is without acute distress. - Current Medication List Current Medications: Active Medications Acetaminophen (Tylenol -) 650 mg PO Q6H PRN PRN Reason: FEVER Last Admin: 06/08/18 10:59 Dose: 650 mg Albuterol/Ipratropium (Duoneb -) 1 amp NEB RQID [facility] Last Admin: 06/09/18 11:30 Dose: 1 amp Albuterol/Ipratropium (Duoneb -) 1 amp NEB Q4H PRN PRN Reason: SHORTNESS OF BREATH Last Admin: 06/07/18 23:28 Dose: 1 amp Amlodipine Besylate (Norvasc -) 5 mg PO DAILY [facility] Last Admin: 06/09/18 11:16 Dose: 5 mg Aspirin (Asa -) 81 mg PO DAILY [facility] Last Admin: 06/09/18 11:16 Dose: 81 mg Atorvastatin Calcium (Lipitor -) 40 mg PO HS [facility] Last Admin: 06/08/18 21:20 Dose: 40 mg Budesonide/Formoterol Fumarate (Symbicort 160/4.5mcg -) 2 puff IH BID [facility] Last Admin: 06/08/18 21:19 Dose: 2 puff Carvedilol (Coreg -) 25 mg PO BID [facility] Last Admin: 06/09/18 11:16 Dose: 25 mg Duloxetine HCl (Cymbalta -) 30 mg PO DAILY [facility] Last Admin: 06/09/18 11:16 Dose: 30 mg Furosemide (Lasix -) 80 mg PO BID@0600,1400 [facility] Last Admin: 06/09/18 05:49 Dose: 80 mg IV Flush (Picc Line Flush) 8 ml IVPUSH PRN PRN PRN Reason: Protocol Ceftriaxone Sodium 2 gm/ (Sodium Chloride) 100 mls @ 200 mls/hr IVPB Q24H [facility] Last Admin: 06/08/18 12:00 Dose: 200 mls/hr Insulin Aspart (Novolog Vial Sliding Scale -) 1 vial SQ TIDAC [facility]; Protocol Last Admin: 06/09/18 06:12 Dose: 2 units Insulin Detemir (Levemir Vial) 42 units SQ HS [facility] Last Admin: 06/08/18 21:28 Dose: 42 units Insulin Detemir (Levemir Vial) 10 units SQ DAILY@0700 [facility] Last Admin: 06/09/18 06:12 Dose: 10 units Isosorbide Mononitrate (Imdur -) 60 mg PO DAILY [facility] Last Admin: 06/09/18 11:16 Dose: 60 mg Levothyroxine Sodium (Synthroid -) 88 mcg PO 0700 [facility] Last Admin: 06/09/18 06:12 Dose: 88 mcg Melatonin (Melatonin) 5 mg PO HS PRN PRN Reason: INSOMNIA Last Admin: 06/08/18 21:20 Dose: 5 mg Mirtazapine (Remeron -) 15 mg PO HS [facility] Last Admin: 06/08/18 21:20 Dose: 15 mg Montelukast Sodium (Singulair -) 10 mg PO HS [facility] Last Admin: 06/08/18 21:20 Dose: 10 mg Pantoprazole Sodium (Protonix -) 40 mg PO DAILY [facility] Last Admin: 06/08/18 10:59 Dose: 40 mg Potassium Chloride (K-Dur -) 10 meq PO DAILY [facility] Last Admin: 06/09/18 11:16 Dose: 10 meq Senna (Senna -) 2 tab PO HS PRN PRN Reason: CONSTIPATION Last Admin: 06/07/18 22:13 Dose: 2 tab Tramadol HCl (Ultram -) 25 mg PO Q12H PRN PRN Reason: PAIN LEVEL 4 - 6 - Objective Vital Signs: Vital Signs Temperature 98.3 F 06/09/18 06:00 Pulse Rate 60 06/09/18 09:31 Respiratory Rate 22 06/09/18 09:31 Blood Pressure 112/55 06/09/18 09:31 O2 Sat by Pulse Oximetry (%) 100 06/08/18 21:00 Constitutional: Yes: No Distress, Calm Cardiovascular: Yes: Regular Rate and Rhythm Respiratory: Yes: Regular Gastrointestinal: Yes: Normal Bowel Sounds, Soft Genitourinary: Yes: WNL Extremities: Yes: WNL Integumentary: Yes: WNL Neurological: Yes: Alert, Oriented Labs: CBC, BMP 06/09/18 05:30 06/09/18 05:30 INR, PTT INR 1.15 (0.83-1.09) H 06/01/18 23:45 Problem List - Problems (1) Acute hypercapnic respiratory failure Code(s): J96.02 - ACUTE RESPIRATORY FAILURE WITH HYPERCAPNIA (2) COPD exacerbation Code(s): J44.1 - CHRONIC OBSTRUCTIVE PULMONARY DISEASE W (ACUTE) EXACERBATION (3) Hemiplegia affecting dominant side Code(s): G81.90 - HEMIPLEGIA, UNSPECIFIED AFFECTING UNSPECIFIED SIDE (4) Morbid obesity Code(s): E66.01 - MORBID (SEVERE) OBESITY DUE TO EXCESS CALORIES (5) Pneumonia Code(s): J18.9 - PNEUMONIA, UNSPECIFIED ORGANISM (6) Swelling of right lower extremity Code(s): M79.89 - OTHER SPECIFIED SOFT TISSUE DISORDERS (7) CKD (chronic kidney disease) Code(s): N18.9 - CHRONIC KIDNEY DISEASE, UNSPECIFIED Qualifiers: Chronic kidney disease stage: unspecified stage Qualified Code(s): N18.9 - Chronic kidney disease, unspecified (8) Anemia Code(s): D64.9 - ANEMIA, UNSPECIFIED Qualifiers: Iron deficiency anemia type: chronic blood loss (9) HTN (hypertension) Code(s): I10 - ESSENTIAL (PRIMARY) HYPERTENSION (10) Leukocytosis Code(s): D72.829 - ELEVATED WHITE BLOOD CELL COUNT, UNSPECIFIED (11) Sepsis Code(s): A41.9 - SEPSIS, UNSPECIFIED ORGANISM Qualifiers: Sepsis type: Escherichia coli Qualified Code(s): A41.51 - Sepsis due to Escherichia coli [E. coli] (12) CVA (cerebral vascular accident) Code(s): I63.9 - CEREBRAL INFARCTION, UNSPECIFIED (13) Bacteremia due to Streptococcus Code(s): R78.81 - BACTEREMIA; B95.5 - UNSP STREPTOCOCCUS THE CAUSE OF DISEASES CLASSD ELSR Assessment/Plan 77 y.o. female with PMH of DM, HTN, HLD, Asthma, COPD, CKD, CVA presenting with SOB, cough/wheezing, fever for 3 days Streptococcal Bacteremia/Sepsis Acute hypoxemic respiratory failure Bibasilar PNA COPD exacerbation DM Morbid Obesity CKD HTN HLD --continue Ceftriaxone IV for one more week --pt afebrile, without shortness of breath --awaiting picc placement -- will need f/u CT -- Pulmonary following, steroids being tapered off cont monitor
[2018-06-09] MEDS ORDERED: SODIUM CHLORIDE 100 ML IVPB ONE (13:12)
[2018-06-09] MEDS: CEFTRIAXONE 2 GM in SODIUM CHLORIDE 100 ML IVPB SCH (13:21)
--- NOTE | 2018-06-09 16:47 | PN ---
Physical Exam: SUBJECTIVE: Patient seen and examined OBJECTIVE: Vital Signs Period Temp Pulse Resp BP Sys/Mike Pulse Ox Last 24 Hr 98.0 F-98.3 F 60-73 16-22 112-143/55-76 100 GENERAL: The patient is awake, alert, and fully oriented, in no acute distress. HEAD: Normal with no signs of trauma. EYES: PERRL, extraocular movements intact, sclera anicteric, conjunctiva clear. No ptosis. ENT: Ears normal, nares patent, oropharynx clear without exudates, moist mucous membranes. NECK: Trachea midline, full range of motion, supple. LUNGS: Breath sounds equal, clear to auscultation bilaterally, no wheezes, no crackles, no accessory muscle use. HEART: Regular rate and rhythm, S1, S2 without murmur, rub or gallop. ABDOMEN: Soft, nontender, nondistended, normoactive bowel sounds, no guarding, no rebound, no hepatosplenomegaly, no masses. EXTREMITIES: 2+ pulses, warm, well-perfused, no edema. NEUROLOGICAL: Cranial nerves II through XII grossly intact. Normal speech, gait not observed. PSYCH: Normal mood, normal affect. SKIN: Warm, dry, normal turgor, no rashes or lesions noted Laboratory Results - last 24 hr 06/08/18 06/08/18 06/09/18 17:14 21:27 05:30 WBC 14.2 H RBC 3.52 L Hgb 9.3 L Hct 28.8 L MCV 81.9 MCH 26.5 MCHC 32.3 RDW 17.7 H Plt Count 210 MPV 9.3 Absolute Neuts (auto) 11.5 H Neutrophils % 80.8 Neutrophils % (Manual) 71.6 Band Neutrophils % 1.9 Lymphocytes % 11.3 Lymphocytes % (Manual) 14.7 D Monocytes % 6.7 Monocytes % (Manual) 7 Eosinophils % 0.7 Eosinophils % (Manual) 0.0 Basophils % 0.5 Basophils % (Manual) 0.0 Myelocytes % (Man) 3 H D Promyelocytes % (Man) 0 Blast Cells % (Manual) 0 Nucleated RBC % 0 Metamyelocytes 2 D Hypochromia 0 Toxic Granulation 0 Dohle Bodies 0 Platelet Estimate Normal Polychromasia 0 Poikilocytosis 0 Basophilic Stippling 0 Anisocytosis 0 Microcytosis 0 Macrocytosis 0 Spherocytes 0 Sickle Cells 0 Target Cells 0 Tear Drop Cells 0 Ovalocytes 0 Stomatocytes 0 Helmet Cells 0 [place] Bodies 0 [place] Rings 0 [place] Cells 0 Acanthocytes (Spur) 0 Rouleaux 0 Fragmented RBCs 0 Schistocytes 0 Sodium Potassium Chloride Carbon Dioxide Anion Gap BUN Creatinine Creat Clearance w eGFR POC Glucometer 90 151 Random Glucose Calcium Phosphorus Magnesium Total Bilirubin AST ALT Alkaline Phosphatase Total Protein Albumin Vitamin B12 Serum Folate 06/09/18 06/09/18 05:30 05:46 WBC RBC Hgb Hct MCV MCH MCHC RDW Plt Count MPV Absolute Neuts (auto) Neutrophils % Neutrophils % (Manual) Band Neutrophils % Lymphocytes % Lymphocytes % (Manual) Monocytes % Monocytes % (Manual) Eosinophils % Eosinophils % (Manual) Basophils % Basophils % (Manual) Myelocytes % (Man) Promyelocytes % (Man) Blast Cells % (Manual) Nucleated RBC % Metamyelocytes Hypochromia Toxic Granulation Dohle Bodies Platelet Estimate Polychromasia Poikilocytosis Basophilic Stippling Anisocytosis Microcytosis Macrocytosis Spherocytes Sickle Cells Target Cells Tear Drop Cells Ovalocytes Stomatocytes Helmet Cells [place] Bodies [place] Rings [place] Cells Acanthocytes (Spur) Rouleaux Fragmented RBCs Schistocytes Sodium 136 Potassium 4.5 Chloride 93 L Carbon Dioxide 31 Anion Gap 12 BUN 92 H Creatinine 2.3 H Creat Clearance w eGFR 20.56 POC Glucometer 160 Random Glucose 146 H Calcium 8.9 Phosphorus 4.4 Magnesium 2.4 Total Bilirubin 0.3 AST 18 ALT 23 Alkaline Phosphatase 76 Total Protein 6.4 Albumin 2.6 L Vitamin B12 778 Serum Folate 10 Active Medications Generic Name Dose Route Start Last Admin Trade Name Freq PRN Reason Stop Dose Admin Acetaminophen 650 mg 06/02/18 17:51 06/08/18 10:59 Tylenol - PO 650 mg Q6H PRN Administration FEVER Albuterol/Ipratropium 1 amp 06/08/18 08:00 06/09/18 11:30 Duoneb - NEB 1 amp RQID [facility] Administration Albuterol/Ipratropium 1 amp 06/07/18 22:52 06/07/18 23:28 Duoneb - NEB 1 amp Q4H PRN Administration SHORTNESS OF BREATH Amlodipine Besylate 5 mg 06/03/18 10:00 06/09/18 11:16 Norvasc - PO 5 mg DAILY [facility] Administration Aspirin 81 mg 06/02/18 10:00 06/09/18 11:16 Asa - PO 81 mg DAILY [facility] Administration Atorvastatin Calcium 40 mg 06/02/18 22:00 06/08/18 21:20 Lipitor - PO 40 mg HS [facility] Administration Budesonide/Formoterol Fumarate 2 puff 06/02/18 11:15 06/09/18 10:00 Symbicort 160/4.5mcg - IH 2 puff BID [facility] Administration Carvedilol 25 mg 06/02/18 22:00 06/09/18 11:16 Coreg - PO 25 mg BID [facility] Administration Duloxetine HCl 30 mg 06/03/18 10:00 06/09/18 11:16 Cymbalta - PO 30 mg DAILY [facility] Administration Furosemide 80 mg 06/03/18 06:00 06/09/18 13:21 Lasix - PO 80 mg BID@0600,1400 [facility] Administration IV Flush 8 ml 06/07/18 10:31 Picc Line Flush IVPUSH PRN PRN Protocol Ceftriaxone Sodium 2 gm/ 100 mls @ 200 mls/hr 06/04/18 12:07 06/09/18 13:21 Sodium Chloride IVPB 200 mls/hr Q24H [facility] Administration Insulin Aspart 1 vial 06/08/18 16:30 06/09/18 13:21 Novolog Vial Sliding Scale - SQ Not Given TIDAC [facility] Protocol Insulin Detemir 42 units 06/03/18 22:00 06/08/18 21:28 Levemir Vial SQ 42 units HS [facility] Administration Insulin Detemir 10 units 06/04/18 07:00 06/09/18 06:12 Levemir Vial SQ 10 units DAILY@0700 [facility] Administration Isosorbide Mononitrate 60 mg 06/03/18 10:00 06/09/18 11:16 Imdur - PO 60 mg DAILY [facility] Administration Levothyroxine Sodium 88 mcg 06/02/18 07:00 06/09/18 06:12 Synthroid - PO 88 mcg 0700 [facility] Administration Melatonin 5 mg 06/07/18 20:07 06/08/18 21:20 Melatonin PO 5 mg HS PRN Administration INSOMNIA Mirtazapine 15 mg 06/02/18 22:00 09/11/18 21:20 Remeron - PO 15 mg HS [facility] Administration Montelukast Sodium 10 mg 06/02/18 22:00 06/08/18 21:20 Singulair - PO 10 mg HS [facility] Administration Pantoprazole Sodium 40 mg 06/02/18 13:30 06/08/18 10:59 Protonix - PO 40 mg DAILY [facility] Administration Potassium Chloride 10 meq 06/05/18 12:30 06/09/18 11:16 K-Dur - PO 10 meq DAILY [facility] Administration Senna 2 tab 06/02/18 18:27 06/07/18 22:13 Senna - PO 2 tab HS PRN Administration CONSTIPATION Tramadol HCl 25 mg 06/09/18 09:43 Ultram - PO Q12H PRN PAIN LEVEL 4 - 6 ASSESSMENT/PLAN: Patient is a 77 year old female with history of COPD (on overnight BiPAP at home ), asthma, obesity, chronic kidney disease, CVA with residual right-sided hemiparesis, coronary artery disease (s/p cardiac cath), HTN, HLD, DM, anemia (s /p past transfusions), presented with complaint of shortness of breath. Admitted for shortness of breath secondary to COPD/ asthma exacerbation, and upper respiratory infection. Treated with Duo nebs, solu-medrol, singulair, reinstated home albuterol, and advair. ID recommendations discussed treatment with Ceftriaxone (2 weeks) and Azithromycin (5days). Urine for strep pneumo and legionella were negative. Blood cultures grew Beta hemolytic Strep group G. Subsequent blood culture was negative for growth. Home medication Lasix was reinstated for her CHF. HTN was treated with home medications Norvasc, Imdur, Coreg. Hypothyroidism was treated with home medication Synthroid. DM managed with Levemir, and ISS. She developed pain in B/L lower extremities likely secondary to diabetic neuropathy. Initial LE doppler was negative for DVT. Patient did not consent to second Doppler. A tunnel catheter was palced, and she was discharged to SNF to receive continued IV Ceftriaxone for one week to complete 2 week total course. Discharged with referral to Sales Representative Supervisor, Sock Examiner, Voice Coach, ID, and her PCP within one week.
[2018-06-09 19:32] VITALS: BP 154/77; PULSE 72; TEMP 98.2
[2018-06-09] MEDS ORDERED: PT OWN MED DRAWER 7, Y5N ONE (20:05)
--- NOTE | 2018-06-10 15:55 | DS ---
Physical Exam: SUBJECTIVE: Patient seen and examined at bedside. Afebrile overnight. Patient was on 3L O2 nasal canula this morning. Admits mild improvement to pain in her B /L lower extremities at the feet today. Denies chest pain, palpitations, shortness of breath, cough, chest pain, palpitations, nausea, vomiting, diarrhea. OBJECTIVE: Vital Signs Period Temp Pulse Resp BP Sys/Mike Pulse Ox Last 24 Hr 98.2 F-98.8 F 68-72 22-22 136-154/76-77 PHYSICAL EXAM GENERAL: The patient is awake, alert, in no acute distress. HEAD: Normal with no signs of trauma. EYES: PERRL, extraocular movements intact, sclera anicteric. ENT: Oropharynx clear without exudates, moist mucous membranes. NECK: Supple withut lymphadenopathy. LUNGS: On 3L nasal canula. Breath sounds equal, end-expiratory wheezes still auscultated B/L lungs upper and lower lobes. No crackles appreciated. No accessory muscle use observed upon my exam this morning. HEART: Regular rate and rhythm, +S1, S2 auscultated without murmur, rub or gallop. ABDOMEN: Soft, nontender, nondistended, normoactive bowel sounds, no guarding, no rebound, no hepatosplenomegaly appreciated. EXTREMITIES: 2+ radial and 1+ DP pulses B/L. 3+ pitting edema right lower extremity. 1+ pitting edema left lower extremity. NEUROLOGICAL: LUE strength 3/5 for flexion, extension. RUE strength 2/5 for flexion, extension. LUE abducion strength 2/5. RUE abduction strength 1/5. LLE flexion, extension 2/5. RLE flexion strength 1/5 (limited by pain). LLE extension strength 1/5 (limited by pain). Dorsiflexion, plantaflexion RLE 1/5 ( limited by pain). Dorsiflexion, plantarflexion LLE 1/5 (limited by pain). SKIN: Warm, dry. Left leg skin appears shiny today. LABS HOSPITAL COURSE: Date of Admission:06/02/18 Date of Discharge: 06/09/18 Patient is a 77 year old female with history of COPD (on overnight BiPAP at home ), asthma, obesity, chronic kidney disease, CVA with residual right-sided hemiparesis, coronary artery disease (s/p cardiac cath), HTN, HLD, DM, anemia (s /p past transfusions), presented with complaint of shortness of breath. Admitted for shortness of breath secondary to COPD/ asthma exacerbation, and upper respiratory infection. Treated with Duo nebs, solu-medrol, singulair, reinstated home albuterol, and advair. ID recommendations discussed treatment with Ceftriaxone (2 weeks) and Azithromycin (5days). Urine for strep pneumo and legionella were negative. Blood cultures grew Beta hemolytic Strep group G. Subsequent blood culture was negative for growth. Home medication Lasix was reinstated for her CHF. HTN was treated with home medications Norvasc, Imdur, Coreg. Hypothyroidism was treated with home medication Synthroid. DM managed with Levemir, and ISS. She developed pain in B/L lower extremities likely secondary to diabetic neuropathy. Initial LE doppler was negative for DVT. Patient did not consent to second Doppler. A tunnel catheter was placed, and she was discharged to SNF to receive continued IV Ceftriaxone for one week to complete 2 week total course. Discharged with referral to [facility], Ge[facility] Support Specialist, [facility], ID, and her PCP within one week. Minutes to complete discharge: 35 Discharge Summary Reason For Visit: OBSTRUCTIVE CHRONIC BRONCHITIS Condition: Improved - Instructions Diet, Activity, Other Instructions: You were admitted to the hospital for shortness of breath due to your COPD Asthma, and upper respiratory tract infection. You were also found to have an infection in the blood and were given antibiotics for your infection. You will need to continue for one more week of Intravenous antibiotics ( Ceftriaxone 2g IV daily). You will continue taking your home medications: Albuterol 1-2 inhalations daily Advair 1 puff daily Norvasc 5mg daily for your blood pressure Coreg 25mg twice a day Imdur 60mg daily Cymbalta 30mg daily Remeron 15mg daily Lasix 40mg twice a day Synthroid 88mcg daily Continue newly added medication for your pain :Tramadol 25mg every 12 hours as needed for pain.(Temporary medication). Continue taking your Insulin as you have been taking at home (10 units in AM, and additional according to sliding scale, 42 units at bedtime) Senna 2 tablets daily as needed for constipation. It is important that you follow up with your primary care physician, within one week of discharge from Rehab. It is important that you follow up with your Infectious disease doctor (Dr. Singh ) within one week of discharge It is important that you follow up with your Kidney doctor (Dr. Jaun Carlos) within one week of discharge It is important that you follow up with your Heart doctor (Dr. Hernandez) within one week of discharge It is important that you follow up with your Lung doctor (Dr. Vick) within one week of discharge Please return to the nearest Emergency Department if you experience fevers, chills, shortness of breath, wheezing, lightheadedness. Referrals: Amanda Singh MD [Staff Physician] - 1 Week Nikunj Vick MD [Staff Physician] - 1 Week Jose Ramon Hernandez MD [Staff Physician] - 1 Week Terrance Zamorano MD [Staff Physician] - 1 Week Disposition: [facility] - Home Medications Comprehensive Discharge Medication List: Ambulatory Orders Albuterol Sulfate Inhaler - [Ventolin HFA Inhaler -] 1 - 2 inh PO QID #1 inhaler 06/02/18 Amlodipine Besylate [Norvasc -] 5 mg PO DAILY 06/02/18 Aspirin [ASA -] 81 mg PO DAILY 06/02/18 Atorvastatin Ca [Lipitor] 40 mg PO HS 06/02/18 Carvedilol [Coreg -] 25 mg PO BID 06/02/18 Duloxetine HCl 30 mg PO DAILY 06/02/18 Furosemide [Lasix] 80 mg PO BID 06/02/18 Isosorbide Mononitrate [Imdur -] 60 mg PO DAILY 06/02/18 Levothyroxine [Synthroid -] 75 mcg PO DAILY 06/02/18 Mirtazapine 15 mg PO DAILY 06/02/18 Montelukast Sodium [Singulair] 10 mg PO DAILY 06/02/18 Salmeterol/Fluticasone [Advair 100Mcg/50Mcg -] 1 inh IH DAILY #30 inh 06/02/18 Sennosides [Senna] 8.6 mg PO PRN PRN #30 tablet 06/02/18 Insulin (Levemir) [Levemir Vial] 10 unit SQ DAILY #1 vial 06/03/18 Insulin (Levemir) [Levemir Vial] 32 unit SQ HS #1 vial 06/03/18 Insulin Aspart [Novolog] See Protocol SQ AC 06/03/18 Ceftriaxone 2 gm-D5w Bag 2 gm IV DAILY 14 Days #14 ml 06/07/18 Amlodipine Besylate [Norvasc -] 5 mg PO DAILY tablet 06/09/18 Carvedilol [Coreg -] 25 mg PO BID tablet 06/09/18 Duloxetine HCl [Cymbalta -] 30 mg PO DAILY capsule. 06/09/18 Furosemide [Lasix -] 80 mg PO BID@0600,1400 tablet 06/09/18 Isosorbide Mononitrate [Imdur -] 60 mg PO DAILY tab.sr.24h 06/09/18 Levothyroxine [Synthroid -] 88 mcg PO DAILY 30 Days #30 tablet 06/09/18 Mirtazapine [Remeron -] 15 mg PO HS tablet 06/09/18 Sennosides [Senna -] 2 tab PO HS PRN tablet 06/09/18 traMADol HCL [Ultram -] 25 mg PO Q12H PRN 7 Days #14 tablet MDD 2 06/09/18 This patient is new to me today: No Emergency Visit: Yes ED Registration Date: 06/02/18 Care time: The patient presented to the Emergency Department on the above date and was hospitalized for further evaluation of their emergent condition. Critical Care patient: No - Discharge Referral Referred to [facility] No
== END 2018-06-09 20:18 | DRG 193 ==
LOC: JER 22:37 → JERBED 06-02 03:02 → UNDOADMIN 06-02 03:21 → J4W 06-02 06:53
PROVIDERS: ADMIT Internal Medicine; ATTEND Internal Medicine
PROC: 02HV33Z Insertion of Infusion Device into Superior Vena Cava, Percutaneous Approach (ICD-10-PCS; principal; 2018-06-09)
PROC: B518ZZA Fluoroscopy of Superior Vena Cava, Guidance (ICD-10-PCS; 2018-06-09)
DX: J18.9 Pneumonia, unspecified organism (principal); J96.02 Acute respiratory failure with hypercapnia; J96.01 Acute respiratory failure with hypoxia; J44.1 Chronic obstructive pulmonary disease with (acute) exacerbation; J45.901 Unspecified asthma with (acute) exacerbation; Z68.43 Body mass index [BMI] 50.0-59.9, adult; I69.351 Hemiplegia and hemiparesis following cerebral infarction affecting right dominant side; I13.0 Hypertensive heart and chronic kidney disease with heart failure and stage 1 through stage 4 chronic kidney disease, or unspecified chronic kidney disease; I50.30 Unspecified diastolic (congestive) heart failure; N18.4 Chronic kidney disease, stage 4 (severe); J98.11 Atelectasis; E87.1 Hypo-osmolality and hyponatremia; E66.01 Morbid (severe) obesity due to excess calories; D64.9 Anemia, unspecified; E11.22 Type 2 diabetes mellitus with diabetic chronic kidney disease; G47.30 Sleep apnea, unspecified; E78.5 Hyperlipidemia, unspecified; E03.9 Hypothyroidism, unspecified; K59.00 Constipation, unspecified; E11.21 Type 2 diabetes mellitus with diabetic nephropathy; E87.70 Fluid overload, unspecified; E11.65 Type 2 diabetes mellitus with hyperglycemia
CPT/HCPCS: 36415; 36558; 36600; 71045-TC-FY; 71250-TC; 77001-TC-FY; 80048; 80053; 81003; 81015; 82375; 82607; 82728; 82746; 82803; 82962; 83050; 83540; 83550; 83605; 83735; 83880; 84100; 84484; 85025; 85027; 85610; 85730; 87040; 87086; 87186; 87899; 93005; 93010; 93306-TC; 93970-TC; 94640; 94660; 97161-GP; 99283-25; C1751; G0480; J0131; J0881; J1644

== ENCOUNTER 2018-07-05 15:38 | Inpatient (IN) | payer OTHER ==
--- NOTE | 2018-07-05 15:51 | PDOC ---
History of Present Illness - General History Source: Patient, Care Provider Exam Limitations: No Limitations - History of Present Illness Initial Comments: 07/05/18 17:16 The patient is a 77 year old female, with a significant past medical history of COPD, asthma, obesity, chronic kidney disease, CVA (residual right-sided hemiparesis), coronary artery disease (s/p cardiac catheter), HTN, HLD, DM, anemia, and obesity, who presents to the emergency department with, shortness of breath. As per patient, shortness of breath has been worsening over the past 2 days with associated cough and subjective fevers. Patients aid notes she used her nebulizer, without relief. The patient was recently admitted for similar symptoms 06/01/2018 and discharged to a snf 06/10/2018. As per patient and aid, she was discharged from the halfway facility 07/03/2018 and has not been able to take her medications since then because issues with her home delivery pharmacy. She denies recent headache or dizziness. She denies recent nausea, vomit, diarrhea or constipation. She denies recent dysuria, frequency, urgency or hematuria. She denies recent chest pain. Allergies: Codeine, iodine and iodine containing products, nuts. Past surgical history: Cardiac catheter. Social history: Former smoker (Quit 1999). Denies EtOH use and recreational drug use. <Juan Antonio Alonso - Last Filed: 07/05/18 17:27> <Yanet Walters - Last Filed: 07/05/18 18:32> - General Chief Complaint: Shortness of Breath Stated Complaint: SOB Time Seen by Provider: 07/05/18 15:51 Past History <Juan Antonio Alonso - Last Filed: 07/05/18 17:27> - Past Medical History Anemia: Yes Asthma: Yes Cardiac Disorders: Yes (CARDIAC CATH, HCVD) CVA: Yes (R hemiparesis) COPD: Yes Diabetes: Yes HTN: Yes Thyroid Disease: Yes - Surgical History Cardiac Surgery: Yes (CARDIAC CATH) - Immunization History Immunization Up to Date: Yes - Suicide/Smoking/Psychosocial Hx Smoking Status: Yes Smoking History: Former smoker Have you smoked in the past 12 months: No Number of Cigarettes Smoked Daily: 0 If you are a former smoker, when did you quit?: 15 yrs ago Cigars Per Day: 0 Hx Alcohol Use: No Drug/Substance Use Hx: No Substance Use Type: None Hx Substance Use Treatment: No <Yanet Walters - Last Filed: 07/05/18 18:32> - Past Medical History Allergies/Adverse Reactions: Allergies Allergy/AdvReac Type Severity Reaction Status Date / Time codeine [Codeine] Allergy Severe Hives Verified 07/05/18 16:04 Iodine and Iodide Containing Allergy Verified 07/05/18 16:04 Produc nuts Allergy Mild Uncoded 07/05/18 16:04 Home Medications: Ambulatory Orders Albuterol Sulfate Inhaler - [Ventolin HFA Inhaler -] 1 - 2 inh PO QID #1 inhaler 06/02/18 Aspirin [ASA -] 81 mg PO DAILY 06/02/18 Atorvastatin Ca [Lipitor] 40 mg PO HS 06/02/18 Duloxetine HCl 30 mg PO DAILY 06/02/18 Furosemide [Lasix] 80 mg PO BID 06/02/18 Isosorbide Mononitrate [Imdur -] 60 mg PO DAILY 06/02/18 Mirtazapine 15 mg PO DAILY 06/02/18 Montelukast Sodium [Singulair] 10 mg PO DAILY 06/02/18 Salmeterol/Fluticasone [Advair 100Mcg/50Mcg -] 1 inh IH DAILY #30 inh 06/02/18 Sennosides [Senna] 8.6 mg PO PRN PRN #30 tablet 06/02/18 Insulin (Levemir) [Levemir Vial] 10 unit SQ DAILY #1 vial 06/03/18 Insulin (Levemir) [Levemir Vial] 32 unit SQ HS #1 vial 06/03/18 Insulin Aspart [Novolog] See Protocol SQ AC 06/03/18 Ceftriaxone 2 gm-D5w Bag 2 gm IV DAILY 14 Days #14 ml 06/07/18 Amlodipine Besylate [Norvasc -] 5 mg PO DAILY tablet 06/09/18 Carvedilol [Coreg -] 25 mg PO BID tablet 06/09/18 Levothyroxine [Synthroid -] 88 mcg PO DAILY 30 Days #30 tablet 06/09/18 traMADol HCL [Ultram -] 25 mg PO Q12H PRN 7 Days #14 tablet MDD 2 06/09/18 Review of Systems - Review of Systems Able to Perform ROS?: Yes Comments:: 07/05/18 17:17 +GENERAL/CONSTITUTIONAL: Fevers. No weakness. HEAD, EYES, EARS, NOSE AND THROAT: No change in vision. No ear pain or discharge. No sore throat. GASTROINTESTINAL: No nausea, vomiting, diarrhea or constipation. GENITOURINARY: No dysuria, frequency, or change in urination. CARDIOVASCULAR: No chest pain. +RESPIRATORY: Shortness of breath. Cough. No wheezing, or hemoptysis. +MUSCULOSKELETAL: Right calf pain (chronic). No joint or muscle swelling or pain. No neck or back pain. SKIN: No rash NEUROLOGIC: No headache, vertigo, loss of consciousness, or change in strength/ sensation. ENDOCRINE: No increased thirst. No abnormal weight change. HEMATOLOGIC/LYMPHATIC: No anemia, easy bleeding, or history of blood clots. ALLERGIC/IMMUNOLOGIC: No hives or skin allergy. All Other Systems: Reviewed and Negative <Juan Antonio Alonso - Last Filed: 07/05/18 17:27> *Physical Exam - Vital Signs Last Vital Signs Temp Pulse Resp BP Pulse Ox 100.0 F H 92 H 16 143/72 99 07/05/18 15:40 07/05/18 15:40 07/05/18 15:40 07/05/18 15:40 07/05/18 15:40 - Physical Exam Comments: 07/05/18 17:27 Constitutional: Awake, alert, oriented. No acute distress. Head: Normocephalic. Atraumatic Eyes: PERRL. EOMI. Conjunctivae are not pale. ENT: Mucous membranes are moist and intact. Posterior pharynx without exudates or erythema. Uvula midline. Neck: Supple. Full ROM. No lymphadenopathy. Cardiovascular: Regular rate. Regular rhythm. S1, S2 regular. Distal pulses are 2+ and symmetric. +Pulmonary/Chest: Wheezing at the top of lungs and diminished at bases. No rales or rhonchi. Abdominal: Soft and non-distended. There is no tenderness. No rebound, guarding or rigidity. No organomegaly. No palpable masses. Good bowel sounds. Back: No CVA tenderness. Musculoskeletal: Chronic right calf pain secondary CVA in the past. No edema. No cyanosis. No clubbing. Full range of motion in all extremities. Radial/ pedal pulses are intact and 2+ bilaterally Skin: Skin is warm and dry. No petechiae. No purpura. Neurological: Alert and oriented to person, place, and time. Cranial nerves II -XII are grossly intact. Normal speech. Strength is grossly symmetric. No sensory deficits. Psychiatric: Good eye contact. Normal interaction, affect and behavior. <Juan Antonio Alonso - Last Filed: 07/05/18 17:27> Heart Score/ECG Review - ECG Intrepretation Comment:: 07/05/18 17:05 sinus at 91, nl axis, t wave inversions I/avl which are unchanged from prior - ekg is unchanged from prior <Yanet Walters - Last Filed: 07/05/18 18:32> ED Treatment Course - LABORATORY CBC & Chemistry Diagram: 07/05/18 16:50 07/05/18 16:50 <Juan Antonio Alonso - Last Filed: 07/05/18 17:27> - LABORATORY CBC & Chemistry Diagram: 07/05/18 16:50 07/05/18 16:50 <Yanet Walters - Last Filed: 07/05/18 18:32> Medical Decision Making - Medical Decision Making 07/05/18 16:13 EXAM#:US/DUPLEX VASCUL US-2LEGS done on 06/04/2018 HISTORY PROVIDED: Pain and swelling bilateral lower extremities. Real time and doppler evaluation of both lower extremities demonstrates the following: There is no evidence of deep venous thrombosis within the common, deep and superficial femoral veins, as well as the popliteal and posterior tibial veins. The greater saphenous veins are also patent. These veins are fully compressible, as well. IMPRESSION: No evidence of deep venous thrombosis. Reported By: Kirill Hamm MD <Juan Antonio Alonso - Last Filed: 07/05/18 17:27> - Medical Decision Making 07/05/18 1600 a/p: 77yo female from home with SOB -hx of copd -wheezing upon arrival -pt with sob/tachypnic/on home o2 -was d/c to SNF on thursday without meds -home health aide saw pt today with nurse who was concerned about her sob -concern for copd exacerbation -no fevers at home -no change in cough production -tried a neb at home without relief -will send labs/cultures/cxr -will give nebs/steroids -will most likely need admission for copd exacerbation 07/05/18 18:31 labs reviewed discussed the case with Dr. Tejada will give abx for copd exacerbation -will send blood cultures -dr. tejada accepts pt to service pt updated on the plan <Yanet Walters - Last Filed: 07/05/18 18:32> *DC/Admit/Observation/Transfer - Attestations Scribe Attestion: 07/05/18 16:15 Documentation prepared by Juan Antonio Alonso, acting as medical office assistant for Yanet Walters DO. <Juan Antonio Alonso - Last Filed: 07/05/18 17:27> - Discharge Dispostion Decision to Admit order: Yes - Attestations Physician Attestion: 07/05/18 18:32 I, Dr. Yanet Walters DO, attest that this document has been prepared under my direction and personally reviewed by me in its entirety. I further attest, that it accurately reflects all work, treatment, procedures and medical decision -making performed by me. <Yanet Walters - Last Filed: 07/05/18 18:32> Diagnosis at time of Disposition: Weakness, COPD exacerbation - Discharge Dispostion Condition at time of disposition: Guarded
[2018-07-05] MEDS ORDERED: ALBUTEROL SO4 2.5/IPRATROPIUM 0.5 INH SOL 3 ML VIAL.NEB. NEB ONE ×4 (16:03→16:43)
[2018-07-05] MEDS ORDERED: methylPREDNISolone NA SUCC 125 MG/2 ML VIAL IVPB ONE (16:03)
[2018-07-05] MEDS ORDERED: methylPREDNISolone NA SUCC 125 MG/2 ML VIAL ONE (16:44)
[2018-07-05 17:09] LABS: VENOUS PC02 47.5 mmHg (38-52); VENOUS PH 7.36 (7.32-7.42); VENOUS PO2 36.4 mmHg (28-48)
[2018-07-05 17:11] LABS: EOS % 2.1 % (0-4.5); HEMATOCRIT 28.8 % (32.4-45.2); HEMOGLOBIN 9.4 GM/dL (10.7-15.3); LYMPH % 18.9 % (8-40); MCH 27.8 pg (25.7-33.7); MCHC 32.7 g/dl (32.0-36.0); MEAN CELL VOLUME 84.8 fl (80-96); MEAN PLT VOLUME 8.7 fl (7.5-11.1); MONO % 7.6 % (3.8-10.2); NEUT % 70.4 % (42.8-82.8); PLATELET COUNT 169 K/MM3 (134-434); RDW 19.3 % (11.6-15.6); WHITE BLOOD COUNT 7.5 K/mm3 (4.0-10.0)
[2018-07-05 17:37] LABS: INR 1.08 (0.83-1.09); PROTHROMBIN TIME (PATIENT) 12.7 SEC (9.7-13.0)
[2018-07-05 17:55] LABS: ALBUMIN 2.6 g/dl (3.4-5.0); ALK PHOS 68 U/L (45-117); ANION GAP 6 MMOL/L (8-16); BILIRUBIN,TOTAL 0.4 mg/dL (0.2-1); BLOOD UREA NITROGEN 53 mg/dL (7-18); CALCIUM 8.5 mg/dL (8.5-10.1); CHLORIDE 102 mmol/L (98-107); CO2 26 mmol/L (21-32); CREATININE 1.9 mg/dL (0.55-1.3); GLUCOSE,RANDOM 295 mg/dL (74-106); POTASSIUM 4.9 mmol/L (3.5-5.1); SGOT/AST 24 U/L (15-37); SGPT/ALT 18 U/L (13-61); SODIUM 135 mmol/L (136-145); TOT PROT 6.3 g/dl (6.4-8.2)
[2018-07-05 19:36] LABS: PLATELET ESTIMATE ADEQUATE
[2018-07-05 19:58] LABS: URINE APPEARANCE CLEAR; URINE BILIRUBIN NEGATIVE (<2.0 mg/dL); URINE COLOR LTYELLOW; URINE GLUCOSE (UA) 3+ (NEGATIVE); URINE KETONE NEGATIVE (NEGATIVE); URINE LEUK ESTERASE NEGATIVE (NEGATIVE); URINE NITRITE NEGATIVE (NEGATIVE); URINE PROTEIN 2+ (NEGATIVE); URINE UROBILINOGEN NEGATIVE mg/dL (0.2-1.0)
[2018-07-05 20:04] LABS: EPI CELLS RARE /HPF (FEW); URINE BACTERIA RARE /hpf (NONE SEEN)
--- NOTE | 2018-07-05 22:01 | HP ---
Admitting History and Physical - Primary Care Physician PCP: Nydia Rosales - Admission History of Present Illness: 77 year old female, with a significant past medical history of COPD, asthma, obesity, chronic kidney disease, CVA (residual right-sided hemiparesis), coronary artery disease (s/p cardiac catheter), HTN, HLD, DM, anemia, and obesity, who presents to the emergency department with, shortness of breath. As per patient, shortness of breath has been worsening over the past 2 days with associated cough and subjective fevers. Patients aid notes she used her nebulizer, without relief. The patient was recently admitted for similar symptoms 06/01/2018 and discharged to a care home 06/10/2018. As per patient and aid, she was discharged from the [facility] facility 07/03/2018 and has not been able to take her medications since then because issues with her home delivery pharmacy. 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 Cardiovascular: Yes: HTN, Hyperlipdemia Pulmonary: Yes: COPD Gastrointestinal: Yes: Constipation, GI Bleed Renal/: Yes: Renal Inusuff Heme/Onc: Yes: Anemia Endocrine: Yes: Diabetes Mellitus, Hypothyroidism - Smoking History Smoking history: Former smoker Have you smoked in the past 12 months: No Aproximately how many cigarettes per day: 0 If you are a former smoker, when did you quit?: 15 yrs ago - Alcohol/Substance Use Hx Alcohol Use: No - Social History ADL: Support Services History of Recent Travel: No Home Medications - Allergies Allergies/Adverse Reactions: Allergies Allergy/AdvReac Type Severity Reaction Status Date / Time codeine [Codeine] Allergy Severe Hives Verified 07/05/18 16:04 Iodine and Iodide Containing Allergy Verified 07/05/18 16:04 Produc nuts Allergy Mild Uncoded 07/05/18 16:04 - Home Medications Home Medications: Ambulatory Orders Albuterol Sulfate Inhaler - [Ventolin HFA Inhaler -] 1 - 2 inh PO QID #1 inhaler 06/02/18 Aspirin [ASA -] 81 mg PO DAILY 06/02/18 Atorvastatin Ca [Lipitor] 40 mg PO HS 06/02/18 Duloxetine HCl 30 mg PO DAILY 06/02/18 Furosemide [Lasix] 80 mg PO BID 06/02/18 Isosorbide Mononitrate [Imdur -] 60 mg PO DAILY 06/02/18 Mirtazapine 15 mg PO DAILY 06/02/18 Montelukast Sodium [Singulair] 10 mg PO DAILY 06/02/18 Salmeterol/Fluticasone [Advair 100Mcg/50Mcg -] 1 inh IH DAILY #30 inh 06/02/18 Sennosides [Senna] 8.6 mg PO PRN PRN #30 tablet 06/02/18 Insulin (Levemir) [Levemir Vial] 10 unit SQ DAILY #1 vial 06/03/18 Insulin (Levemir) [Levemir Vial] 32 unit SQ HS #1 vial 06/03/18 Insulin Aspart [Novolog] See Protocol SQ AC 06/03/18 Ceftriaxone 2 gm-D5w Bag 2 gm IV DAILY 14 Days #14 ml 06/07/18 Amlodipine Besylate [Norvasc -] 5 mg PO DAILY tablet 06/09/18 Carvedilol [Coreg -] 25 mg PO BID tablet 06/09/18 Levothyroxine [Synthroid -] 88 mcg PO DAILY 30 Days #30 tablet 06/09/18 traMADol HCL [Ultram -] 25 mg PO Q12H PRN 7 Days #14 tablet MDD 2 06/09/18 Prednisone 10 mg PO ASDIR #30 tab.ds.pk 07/08/18 Family Disease History - Family Disease History Family Disease History: CA: Mother (Breast), Other: Father ( in an MVA) Physical Examination Vital Signs: Vital Signs Temperature 98.7 F 07/05/18 21:24 Pulse Rate 85 07/05/18 21:24 Respiratory Rate 29 H 07/05/18 21:24 Blood Pressure 176/88 H 07/05/18 21:24 O2 Sat by Pulse Oximetry (%) 100 07/05/18 21:24 Constitutional: Yes: No Distress HENT: Yes: Atraumatic Neck: Yes: Supple Cardiovascular: Yes: Regular Rate and Rhythm Respiratory: Yes: Rhonchi, Wheezes Gastrointestinal: Yes: Normal Bowel Sounds Extremities: Yes: WNL Edema: No Neurological: Yes: Alert Labs: CBC, BMP 07/05/18 16:50 07/05/18 16:50 Imaging - Results Chest X-ray: Report Reviewed Problem List - Problems (1) COPD exacerbation Assessment/Plan: prn duo nebs iv steroids Code(s): J44.1 - CHRONIC OBSTRUCTIVE PULMONARY DISEASE W (ACUTE) EXACERBATION (2) Diabetes Assessment/Plan: on meds bgms insulin Code(s): E11.9 - TYPE 2 DIABETES MELLITUS WITHOUT COMPLICATIONS (3) HTN (hypertension) Assessment/Plan: on meds Code(s): I10 - ESSENTIAL (PRIMARY) HYPERTENSION (4) Pneumonia Assessment/Plan: not on abx id on board Code(s): J18.9 - PNEUMONIA, UNSPECIFIED ORGANISM (5) CVA (cerebral vascular accident) Code(s): I63.9 - CEREBRAL INFARCTION, UNSPECIFIED Assessment/Plan Laboratory Tests 07/05/18 07/05/18 07/05/18 16:50 16:50 16:50 WBC 7.5 RBC 3.40 L Hgb 9.4 L Hct 28.8 L MCV 84.8 MCH 27.8 MCHC 32.7 RDW 19.3 H Plt Count 169 MPV 8.7 Absolute Neuts (auto) 5.3 Neutrophils % 70.4 Neutrophils % (Manual) 69.0 Band Neutrophils % 2.0 Lymphocytes % 18.9 D Lymphocytes % (Manual) 22.0 D Monocytes % 7.6 Monocytes % (Manual) 3 L Eosinophils % 2.1 D Eosinophils % (Manual) 4.0 D Basophils % 1.0 Basophils % (Manual) 0.0 Nucleated RBC % 0 Platelet Estimate Adequate PT with INR INR PTT (Actin FS) 27.3 VBG pH POC VBG pCO2 POC VBG pO2 Mixed VBG HCO3 Sodium 135 L Potassium 4.9 Chloride 102 Carbon Dioxide 26 Anion Gap 6 L BUN 53 H Creatinine 1.9 H Creat Clearance w eGFR 25.63 POC Glucometer Random Glucose 295 H Lactic Acid Calcium 8.5 Magnesium Total Bilirubin 0.4 AST 24 ALT 18 Alkaline Phosphatase 68 Creatine Kinase 45 Troponin I < 0.02 B-Natriuretic Peptide Total Protein 6.3 L Albumin 2.6 L TSH Urine Color Urine Appearance Urine pH Ur Specific [place] Urine Protein Urine Glucose (UA) Urine Ketones Urine Blood Urine Nitrite Urine Bilirubin Urine Urobilinogen Ur Leukocyte Esterase Urine WBC (Auto) Urine RBC (Auto) Ur Epithelial Cells Urine Bacteria 07/05/18 07/05/18 07/05/18 16:50 16:50 16:50 WBC RBC Hgb Hct MCV MCH MCHC RDW Plt Count MPV Absolute Neuts (auto) Neutrophils % Neutrophils % (Manual) Band Neutrophils % Lymphocytes % Lymphocytes % (Manual) Monocytes % Monocytes % (Manual) Eosinophils % Eosinophils % (Manual) Basophils % Basophils % (Manual) Nucleated RBC % Platelet Estimate PT with INR 12.70 INR 1.08 PTT (Actin FS) VBG pH POC VBG pCO2 POC VBG pO2 Mixed VBG HCO3 Sodium Potassium Chloride Carbon Dioxide Anion Gap BUN Creatinine Creat Clearance w eGFR POC Glucometer Random Glucose Lactic Acid Calcium Magnesium 2.0 Total Bilirubin AST ALT Alkaline Phosphatase Creatine Kinase Troponin I B-Natriuretic Peptide 338.3 Total Protein Albumin TSH 1.76 Urine Color Urine Appearance Urine pH Ur Specific [place] Urine Protein Urine Glucose (UA) Urine Ketones Urine Blood Urine Nitrite Urine Bilirubin Urine Urobilinogen Ur Leukocyte Esterase Urine WBC (Auto) Urine RBC (Auto) Ur Epithelial Cells Urine Bacteria 07/05/18 07/05/18 07/05/18 16:50 17:04 17:35 WBC RBC Hgb Hct MCV MCH MCHC RDW Plt Count MPV Absolute Neuts (auto) Neutrophils % Neutrophils % (Manual) Band Neutrophils % Lymphocytes % Lymphocytes % (Manual) Monocytes % Monocytes % (Manual) Eosinophils % Eosinophils % (Manual) Basophils % Basophils % (Manual) Nucleated RBC % Platelet Estimate PT with INR INR PTT (Actin FS) VBG pH 7.36 POC VBG pCO2 47.5 POC VBG pO2 36.4 D Mixed VBG HCO3 26.3 H Sodium Potassium Chloride Carbon Dioxide Anion Gap BUN Creatinine Creat Clearance w eGFR POC Glucometer Random Glucose Lactic Acid 1.5 Calcium Magnesium Total Bilirubin AST ALT Alkaline Phosphatase Creatine Kinase Troponin I B-Natriuretic Peptide Total Protein Albumin TSH Urine Color Ltyellow Urine Appearance Clear Urine pH 5.0 Ur Specific [place] 1.009 L Urine Protein 2+ H Urine Glucose (UA) 3+ H Urine Ketones Negative Urine Blood Negative Urine Nitrite Negative Urine Bilirubin Negative Urine Urobilinogen Negative Ur Leukocyte Esterase Negative Urine WBC (Auto) None Urine RBC (Auto) None Ur Epithelial Cells Rare Urine Bacteria Rare 07/05/18 17:45 WBC RBC Hgb Hct MCV MCH MCHC RDW Plt Count MPV Absolute Neuts (auto) Neutrophils % Neutrophils % (Manual) Band Neutrophils % Lymphocytes % Lymphocytes % (Manual) Monocytes % Monocytes % (Manual) Eosinophils % Eosinophils % (Manual) Basophils % Basophils % (Manual) Nucleated RBC % Platelet Estimate PT with INR INR PTT (Actin FS) VBG pH POC VBG pCO2 POC VBG pO2 Mixed VBG HCO3 Sodium Potassium Chloride Carbon Dioxide Anion Gap BUN Creatinine Creat Clearance w eGFR POC Glucometer [phone] Random Glucose Lactic Acid Calcium Magnesium Total Bilirubin AST ALT Alkaline Phosphatase Creatine Kinase Troponin I B-Natriuretic Peptide Total Protein Albumin TSH Urine Color Urine Appearance Urine pH Ur Specific [place] Urine Protein Urine Glucose (UA) Urine Ketones Urine Blood Urine Nitrite Urine Bilirubin Urine Urobilinogen Ur Leukocyte Esterase Urine WBC (Auto) Urine RBC (Auto) Ur Epithelial Cells Urine Bacteria Active Medications Generic Name Dose Route Start Last Admin Trade Name Freq PRN Reason Stop Dose Admin Acetaminophen 650 mg 07/05/18 22:08 Tylenol - PO Q6H PRN FEVER Albuterol/Ipratropium 1 amp 07/06/18 16:00 Duoneb - NEB RQID [facility] Amlodipine Besylate 5 mg 07/06/18 10:00 07/06/18 09:38 Norvasc - PO 5 mg DAILY [facility] Administration Aspirin 81 mg 07/06/18 10:00 07/06/18 09:37 Asa - PO 81 mg DAILY [facility] Administration Atorvastatin Calcium 40 mg 07/06/18 22:00 Lipitor - PO HS [facility] Carvedilol 25 mg 07/06/18 10:00 07/06/18 09:38 Coreg - PO 25 mg BID [facility] Administration Furosemide 80 mg 07/06/18 06:00 07/06/18 13:35 Lasix - PO 80 mg BIDLASIX [facility] Administration Heparin Sodium (Porcine) 5,000 unit 07/06/18 10:00 07/06/18 09:38 Heparin - SQ 5,000 unit BID [facility] Administration Insulin Aspart 1 vial 07/06/18 07:00 07/06/18 12:55 Novolog Vial Sliding Scale - SQ 10 unit ACHS [facility] Administration Protocol Insulin Detemir 32 units 07/06/18 22:00 Levemir Vial SQ HS [facility] Isosorbide Mononitrate 60 mg 07/06/18 10:00 07/06/18 09:38 Imdur - PO 60 mg DAILY [facility] Administration Methylprednisolone Sodium Succinate 60 mg 07/06/18 02:00 07/06/18 09:37 Solu-Medrol - IVPUSH 07/07/18 18:01 60 mg Q8H-IV [facility] Administration Mirtazapine 15 mg 07/06/18 22:00 Remeron - PO HS [facility] Montelukast Sodium 10 mg 07/06/18 22:00 Singulair - PO HS [facility] Senna 1 tab 07/05/18 22:02 Senna - PO DAILY PRN CONSTIPATION
[2018-07-05] MEDS ORDERED: SENNOSIDES 8.6MG TABLET (FP) PO PRN (22:02)
[2018-07-05] MEDS ORDERED: ACETAMINOPHEN 325 MG TABLET (FP) PO PRN (22:08)
[2018-07-05] MEDS ORDERED: ALBUTEROL SO4 2.5/IPRATROPIUM 0.5 INH SOL 3 ML VIAL.NEB. NEB PRN (22:08)
[2018-07-05] MEDS ORDERED: INSULIN (NOVOLOG) ASPART 100 UNITS/ML 10ML VIAL ONE (22:41)
[2018-07-05] MEDS ORDERED: INSULIN (NOVOLOG) ASPART 100 UNITS/ML 10ML VIAL SQ ONE (22:43)
[2018-07-06] MEDS ORDERED: methylPREDNISolone NA SUCC 125 MG/2 ML VIAL ONE (02:04)
[2018-07-06] MEDS: methylPREDNISolone NA SUCC 40 MG/1 ML VIAL IVPUSH SCH ×3 (02:11→17:43)
[2018-07-06] MEDS ORDERED: FUROSEMIDE 40 MG TABLET (FP) ONE (06:05)
[2018-07-06] MEDS: FUROSEMIDE 40 MG TABLET (FP) PO SCH ×2 (07:09→13:35)
[2018-07-06 07:26] LABS: BASO % 0.1 % (0-2.0); HEMOGLOBIN 10.1 GM/dL (10.7-15.3); LYMPH % 7.5 % (8-40); MCH 26.6 pg (25.7-33.7); MCHC 31.7 g/dl (32.0-36.0); MEAN CELL VOLUME 83.9 fl (80-96); MEAN PLT VOLUME 8.5 fl (7.5-11.1); MONO % 0.8 % (3.8-10.2); NEUT % 91.6 % (42.8-82.8); PLATELET COUNT 143 K/MM3 (134-434); RBC 3.81 M/mm3 (3.60-5.2); WHITE BLOOD COUNT 7.6 K/mm3 (4.0-10.0)
[2018-07-06] MEDS ORDERED: INSULIN (NOVOLOG) ASPART 100 UNITS/ML 10ML VIAL ONE ×2 (07:53→12:44)
[2018-07-06] MEDS: INSULIN SLIDING SCALE (NOVOLOG) 1 VIAL SQ SCH ×4 (07:59→22:15)
[2018-07-06 08:13] LABS: ALBUMIN 2.8 g/dl (3.4-5.0); ALK PHOS 76 U/L (45-117); ANION GAP 9 MMOL/L (8-16); BILIRUBIN,TOTAL 0.4 mg/dL (0.2-1); BLOOD UREA NITROGEN 57 mg/dL (7-18); CALCIUM 9.2 mg/dL (8.5-10.1); CHLORIDE 102 mmol/L (98-107); CO2 24 mmol/L (21-32); POTASSIUM 4.8 mmol/L (3.5-5.1); SGOT/AST 10 U/L (15-37); SGPT/ALT 18 U/L (13-61); SODIUM 136 mmol/L (136-145); TOT PROT 7.1 g/dl (6.4-8.2)
[2018-07-06 08:22] LABS: GLUCOSE,RANDOM 324 mg/dL (74-106)
[2018-07-06] MEDS: ASPIRIN 81 MG CHEWABLE TABLETS PO SCH (09:37)
[2018-07-06] MEDS: HEPARIN NA (PORCINE) 5,000 UNITS/ML 1ML VIAL SQ SCH ×2 (09:38→22:24)
[2018-07-06] MEDS: CARVEDILOL 25 MG TABLET (FP) PO SCH ×2 (09:38→22:24)
[2018-07-06] MEDS: ISOSORBIDE MONONITRATE 60 MG TAB.SR.24H (FP) PO SCH (09:38)
[2018-07-06] MEDS: amLODIPine BESYLATE 5 MG TABLET (FP) PO SCH (09:38)
[2018-07-06 11:11] LABS: ANISOCYTOSIS 0; MACROCYTOSIS 0; PLATELET ESTIMATE DECREASED
[2018-07-06] MEDS ORDERED: HEMOQUE TEST 1 EACH EACH ONE (11:40)
--- NOTE | 2018-07-06 11:48 | EKG ---
Test Reason : Blood Pressure : / mmHG Vent. Rate : 091 BPM Atrial Rate : 091 BPM P-R Int : 174 ms QRS Dur : 074 ms QT Int : 342 ms P-R-T Axes : 065 008 119 degrees QTc Int : 420 ms NORMAL SINUS RHYTHM LOW VOLTAGE QRS T WAVE ABNORMALITY, CONSIDER LATERAL ISCHEMIA ABNORMAL ECG WHEN COMPARED WITH ECG OF 01-JUN-2018 23:39, NO SIGNIFICANT CHANGE WAS FOUND Confirmed by Julio Lake MD ([id number]) on 07/06/2018 11:47:36 AM Referred By: Confirmed By:Julio Lake MD
--- NOTE | 2018-07-06 12:52 | CON.PULM ---
Consult Consult Specialty:: PULMONARY Referred by:: Dr. Rosales Reason for Consultation:: shortness of breath - History of Present Illness Chief Complaint: shortness of breath History of Present Illness: 77yo female with h/o HTN, DM, hyperlipidemia, CAD, CKD, COPD, h/o CVA, morbid obesity who presents with worsening shortness of breath x 2 days. Reports a nonproductive cough and increasd wheezing. She did have a measured fever. She was recently admitted with strep bacteremia completed her IV antibiotics x 2 weeks via PICC line. Denies nausea, vomiting. She is a former smoker. 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) ADL: Support Services History of Recent Travel: No Home Medications - Allergies Allergies/Adverse Reactions: Allergies Allergy/AdvReac Type Severity Reaction Status Date / Time codeine [Codeine] Allergy Severe Hives Verified 07/05/18 16:04 Iodine and Iodide Containing Allergy Verified 07/05/18 16:04 Produc nuts Allergy Mild Uncoded 07/05/18 16:04 - Home Medications Home Medications: Ambulatory Orders Albuterol Sulfate Inhaler - [Ventolin HFA Inhaler -] 1 - 2 inh PO QID #1 inhaler 06/02/18 Aspirin [ASA -] 81 mg PO DAILY 06/02/18 Atorvastatin Ca [Lipitor] 40 mg PO HS 06/02/18 Duloxetine HCl 30 mg PO DAILY 06/02/18 Furosemide [Lasix] 80 mg PO BID 06/02/18 Isosorbide Mononitrate [Imdur -] 60 mg PO DAILY 06/02/18 Mirtazapine 15 mg PO DAILY 06/02/18 Montelukast Sodium [Singulair] 10 mg PO DAILY 06/02/18 Salmeterol/Fluticasone [Advair 100Mcg/50Mcg -] 1 inh IH DAILY #30 inh 06/02/18 Sennosides [Senna] 8.6 mg PO PRN PRN #30 tablet 06/02/18 Insulin (Levemir) [Levemir Vial] 10 unit SQ DAILY #1 vial 06/03/18 Insulin (Levemir) [Levemir Vial] 32 unit SQ HS #1 vial 06/03/18 Insulin Aspart [Novolog] See Protocol SQ AC 06/03/18 Ceftriaxone 2 gm-D5w Bag 2 gm IV DAILY 14 Days #14 ml 06/07/18 Amlodipine Besylate [Norvasc -] 5 mg PO DAILY tablet 06/09/18 Carvedilol [Coreg -] 25 mg PO BID tablet 06/09/18 Levothyroxine [Synthroid -] 88 mcg PO DAILY 30 Days #30 tablet 06/09/18 traMADol HCL [Ultram -] 25 mg PO Q12H PRN 7 Days #14 tablet MDD 2 06/09/18 Family Disease History - Family Disease History Family Disease History: CA: Mother (Breast), Other: Father ( in an MVA) Review of Systems - Review of Systems Constitutional: reports: Fever, Malaise, Weakness Eyes: denies: Recent Change in Vision HENT: denies: Nasal Congestion, Throat Pain Neck: denies: Stiffness, Tenderness Cardiovascular: reports: Shortness of Breath. denies: Chest Pain, Palpitations Respiratory: reports: Cough, SOB, SOB on Exertion, Wheezing Gastrointestinal: denies: Abdominal Pain, Nausea, Vomiting Genitourinary: denies: Dysuria, Hematuria Neurological: denies: Dizziness, Headache Endocrine: denies: Unexplained Weight Loss Physical Exam Vital Sings: Vital Signs Temperature 97.8 F 07/06/18 09:52 Pulse Rate 85 07/06/18 09:52 Respiratory Rate 18 07/06/18 09:52 Blood Pressure 181/95 H 07/06/18 09:52 O2 Sat by Pulse Oximetry (%) 100 07/06/18 09:52 Constitutional: Yes: Calm Eyes: Yes: Conjunctiva Clear, EOM Intact HENT: Yes: Atraumatic, Normocephalic Neck: Yes: Supple, Trachea Midline Cardiovascular: Yes: Regular Rate and Rhythm Respiratory: Yes: Diminished (decreased breath sounds at the bases) ...Clubbing: No Gastrointestinal: Yes: Normal Bowel Sounds, Soft, Abdomen, Obese. No: Tenderness Edema: No Neurological: Yes: Alert, Oriented Labs: CBC, BMP 07/06/18 06:25 07/06/18 06:25 Imaging - Results Chest X-ray: Report Reviewed, Image Reviewed (no infiltrates, mild pulmonary vascular congestion) Problem List - Problems (1) COPD exacerbation Code(s): J44.1 - CHRONIC OBSTRUCTIVE PULMONARY DISEASE W (ACUTE) EXACERBATION (2) Acute bronchitis Code(s): J20.9 - ACUTE BRONCHITIS, UNSPECIFIED (3) Diabetes Code(s): E11.9 - TYPE 2 DIABETES MELLITUS WITHOUT COMPLICATIONS (4) HTN (hypertension) Code(s): I10 - ESSENTIAL (PRIMARY) HYPERTENSION (5) CKD (chronic kidney disease) Code(s): N18.9 - CHRONIC KIDNEY DISEASE, UNSPECIFIED Qualifiers: Chronic kidney disease stage: unspecified stage Qualified Code(s): N18.9 - Chronic kidney disease, unspecified Assessment/Plan Acute COPD Exacerbation Acute Bronchitis HTN DM Hyperlipidemia CAD CKD h/o CVA Morbid Obesity - short course of medrol - inhaled bronchodilators standing and PRN - empiric antibiotics - f/u cultures - O2 to keep Spo2 >90% - monitor urine output, creatinine - DVT prophylaxis Thank you for this consult Tarun Hurtado MD
--- NOTE | 2018-07-06 16:12 | PN ---
Progress Note, Physician History of Present Illness: feeling better - Current Medication List Current Medications: Active Medications Acetaminophen (Tylenol -) 650 mg PO Q6H PRN PRN Reason: FEVER Albuterol/Ipratropium (Duoneb -) 1 amp NEB RQID [facility] Amlodipine Besylate (Norvasc -) 5 mg PO DAILY [facility] Last Admin: 07/06/18 09:38 Dose: 5 mg Aspirin (Asa -) 81 mg PO DAILY [facility] Last Admin: 07/06/18 09:37 Dose: 81 mg Atorvastatin Calcium (Lipitor -) 40 mg PO [facility] Carvedilol (Coreg -) 25 mg PO BID [facility] Last Admin: 07/06/18 09:38 Dose: 25 mg Furosemide (Lasix -) 80 mg PO BIDLASIX [facility] Last Admin: 07/06/18 13:35 Dose: 80 mg Heparin Sodium (Porcine) (Heparin -) 5,000 unit SQ BID [facility] Last Admin: 07/06/18 09:38 Dose: 5,000 unit Insulin Aspart (Novolog Vial Sliding Scale -) 1 vial SQ [facility]; Protocol Last Admin: 07/06/18 12:55 Dose: 10 unit Insulin Detemir (Levemir Vial) 32 units SQ [facility] Isosorbide Mononitrate (Imdur -) 60 mg PO DAILY [facility] Last Admin: 07/06/18 09:38 Dose: 60 mg Methylprednisolone Sodium Succinate (Solu-Medrol -) 60 mg IVPUSH Q8H-IV [facility] Stop: 07/07/18 18:01 Last Admin: 07/06/18 09:37 Dose: 60 mg Mirtazapine (Remeron -) 15 mg PO [facility] Montelukast Sodium (Singulair -) 10 mg PO [facility] Senna (Senna -) 1 tab PO DAILY PRN PRN Reason: CONSTIPATION - Objective Vital Signs: Vital Signs Temperature 98.7 F 07/06/18 13:48 Pulse Rate 79 07/06/18 13:48 Respiratory Rate 18 07/06/18 13:48 Blood Pressure 132/76 07/06/18 13:48 O2 Sat by Pulse Oximetry (%) 98 07/06/18 13:48 Constitutional: Yes: No Distress HENT: Yes: Atraumatic Neck: Yes: Supple Cardiovascular: Yes: Regular Rate and Rhythm Respiratory: Yes: CTA Bilaterally Gastrointestinal: Yes: Normal Bowel Sounds Extremities: Yes: WNL Edema: Yes Edema: LLE: 1+, RLE: 1+ Neurological: Yes: Alert, Oriented Labs: CBC, BMP 07/06/18 06:25 07/06/18 06:25 INR, PTT INR 1.08 (0.83-1.09) 07/05/18 16:50 Problem List - Problems (1) COPD exacerbation Assessment/Plan: prn duo nebs iv steroids Code(s): J44.1 - CHRONIC OBSTRUCTIVE PULMONARY DISEASE W (ACUTE) EXACERBATION (2) Diabetes Assessment/Plan: on meds bgms insulin Code(s): E11.9 - TYPE 2 DIABETES MELLITUS WITHOUT COMPLICATIONS (3) HTN (hypertension) Assessment/Plan: on meds Code(s): I10 - ESSENTIAL (PRIMARY) HYPERTENSION (4) Pneumonia Assessment/Plan: not on abx id on board Code(s): J18.9 - PNEUMONIA, UNSPECIFIED ORGANISM (5) CVA (cerebral vascular accident) Code(s): I63.9 - CEREBRAL INFARCTION, UNSPECIFIED
[2018-07-06] MEDS: ALBUTEROL SO4 2.5/IPRATROPIUM 0.5 INH SOL 3 ML VIAL.NEB. NEB SCH (20:45)
[2018-07-06] MEDS: INSULIN (LEVEMIR) 100 UNITS/ML UNITS SQ SCH (22:17)
[2018-07-06] MEDS: MIRTAZAPINE 15 MG TABLET (FP) PO SCH (22:24)
[2018-07-06] MEDS: ATORVASTATIN CA 40 MG TABLET (FP) PO SCH (22:24)
[2018-07-06] MEDS: MONTELUKAST NA 10 MG TABLET PO SCH (22:24)
[2018-07-07] MEDS: methylPREDNISolone NA SUCC 40 MG/1 ML VIAL IVPUSH SCH ×3 (02:27→18:15)
[2018-07-07] MEDS: FUROSEMIDE 40 MG TABLET (FP) PO SCH ×2 (06:44→13:33)
[2018-07-07] MEDS: INSULIN SLIDING SCALE (NOVOLOG) 1 VIAL SQ SCH ×4 (06:44→21:56)
[2018-07-07] MEDS: ALBUTEROL SO4 2.5/IPRATROPIUM 0.5 INH SOL 3 ML VIAL.NEB. NEB SCH ×4 (08:12→20:46)
[2018-07-07] MEDS ORDERED: PT OWN MED DRAWER 7, Y5N ONE (10:49)
[2018-07-07] MEDS: ISOSORBIDE MONONITRATE 60 MG TAB.SR.24H (FP) PO SCH (10:53)
[2018-07-07] MEDS: ASPIRIN 81 MG CHEWABLE TABLETS PO SCH (10:53)
[2018-07-07] MEDS: HEPARIN NA (PORCINE) 5,000 UNITS/ML 1ML VIAL SQ SCH ×2 (10:53→23:15)
[2018-07-07] MEDS: CARVEDILOL 25 MG TABLET (FP) PO SCH ×2 (10:53→21:57)
[2018-07-07] MEDS: amLODIPine BESYLATE 5 MG TABLET (FP) PO SCH (10:53)
--- NOTE | 2018-07-07 13:20 | PN ---
Progress Note, Physician History of Present Illness: PULMONARY ALERT,FEELING BETTER,COMFORTABLE,-RESP DISTRES - Current Medication List Current Medications: Active Medications Acetaminophen (Tylenol -) 650 mg PO Q6H PRN PRN Reason: FEVER Last Admin: 07/07/18 10:57 Dose: 650 mg Albuterol/Ipratropium (Duoneb -) 1 amp NEB RQID [facility] Last Admin: 07/07/18 11:04 Dose: 1 amp Amlodipine Besylate (Norvasc -) 5 mg PO DAILY [facility] Last Admin: 07/07/18 10:53 Dose: 5 mg Aspirin (Asa -) 81 mg PO DAILY [facility] Last Admin: 07/07/18 10:53 Dose: 81 mg Atorvastatin Calcium (Lipitor -) 40 mg PO HS [facility] Last Admin: 07/06/18 22:24 Dose: 40 mg Carvedilol (Coreg -) 25 mg PO BID [facility] Last Admin: 07/07/18 10:53 Dose: 25 mg Furosemide (Lasix -) 80 mg PO BIDLASIX [facility] Last Admin: 07/07/18 06:44 Dose: 80 mg Heparin Sodium (Porcine) (Heparin -) 5,000 unit SQ BID [facility] Last Admin: 07/07/18 10:53 Dose: 5,000 unit Insulin Aspart (Novolog Vial Sliding Scale -) 1 vial SQ [facility]; Protocol Last Admin: 07/07/18 12:37 Dose: 14 unit Insulin Detemir (Levemir Vial) 32 units SQ [facility] Last Admin: 07/06/18 22:17 Dose: 32 units Isosorbide Mononitrate (Imdur -) 60 mg PO DAILY [facility] Last Admin: 07/07/18 10:53 Dose: 60 mg Methylprednisolone Sodium Succinate (Solu-Medrol -) 60 mg IVPUSH Q8H-IV [facility] Stop: 07/07/18 18:01 Last Admin: 07/07/18 10:54 Dose: 60 mg Mirtazapine (Remeron -) 15 mg PO [facility] Last Admin: 07/06/18 22:24 Dose: 15 mg Montelukast Sodium (Singulair -) 10 mg PO [facility] Last Admin: 07/06/18 22:24 Dose: 10 mg Senna (Senna -) 1 tab PO DAILY PRN PRN Reason: CONSTIPATION - Objective Vital Signs: Vital Signs Temperature 97.5 F L 07/07/18 06:00 Pulse Rate 83 07/07/18 06:00 Respiratory Rate 18 07/07/18 06:00 Blood Pressure 152/79 07/07/18 06:00 O2 Sat by Pulse Oximetry (%) 98 07/06/18 21:00 Constitutional: Yes: Calm, Obese Eyes: Yes: WNL HENT: Yes: WNL Neck: Yes: WNL Cardiovascular: Yes: Regular Rate and Rhythm, S1, S2 Respiratory: Yes: Diminished, Rhonchi (FEW SCATTERED RHONCHI) Gastrointestinal: Yes: Normal Bowel Sounds, Soft Extremities: Yes: WNL Edema: Yes (R>L) Labs: CBC, BMP 07/06/18 06:25 07/06/18 06:25 INR, PTT INR 1.08 (0.83-1.09) 07/05/18 16:50 Assessment/Plan Problem List - Problems (1) COPD exacerbation Code(s): J44.1 - CHRONIC OBSTRUCTIVE PULMONARY DISEASE W (ACUTE) EXACERBATION (2) Acute bronchitis Code(s): J20.9 - ACUTE BRONCHITIS, UNSPECIFIED (3) Diabetes Code(s): E11.9 - TYPE 2 DIABETES MELLITUS WITHOUT COMPLICATIONS (4) HTN (hypertension) Code(s): I10 - ESSENTIAL (PRIMARY) HYPERTENSION (5) CKD (chronic kidney disease) Code(s): N18.9 - CHRONIC KIDNEY DISEASE, UNSPECIFIED Qualifiers: Chronic kidney disease stage: unspecified stage Qualified Code(s): N18.9 - Chronic kidney disease, unspecified Assessment/Plan Acute COPD Exacerbation Acute Bronchitis HTN DM Hyperlipidemia CAD CKD h/o CVA Morbid Obesity - medrol taper - inhaled bronchodilators standing and PRN - antibiotics - O2 to keep Spo2 >90% - monitor urine output, creatinine - DVT prophylaxis DR ZHU
--- NOTE | 2018-07-07 14:11 | CON.ID ---
Consult Consult Specialty:: infectious diseases Reason for Consultation:: pneumonia - History of Present Illness Chief Complaint: sob History of Present Illness: 77yo female with h/o HTN, DM, hyperlipidemia, CAD, CKD, COPD, h/o CVA, morbid obesity who presents with worsening shortness of breath x 2 days. Reports a nonproductive cough and increasd wheezing. She did have a measured fever. She was recently admitted with strep bacteremia completed her IV antibiotics x 2 weeks via PICC line. Denies nausea, vomiting. She is a former smoker. this patient known to me from previous admission patient now feels well and is able to breathe better - History Source History Provided By: Patient Limitations to Obtaining History: No Limitations - Past Medical History FEED BLENDER: Yes: CVA Cardio/Vascular: Yes: HTN, Hyperlipdemia Pulmonary: Yes: COPD Gastrointestinal: Yes: Constipation, GI Bleed Renal/: Yes: Renal Inusuff Endocrine: Yes: Diabetes Mellitus, Hypothyroidism - Alcohol/Substance Use Hx Alcohol Use: No - Smoking History Smoking history: Former smoker Have you smoked in the past 12 months: No Aproximately how many cigarettes per day: 0 If you are a former smoker, when did you quit?: 15 yrs ago - Social History Usual Living Arrangement: Other (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) ADL: Support Services History of Recent Travel: No Home Medications - Allergies Allergies/Adverse Reactions: Allergies Allergy/AdvReac Type Severity Reaction Status Date / Time codeine [Codeine] Allergy Severe Hives Verified 07/05/18 16:04 Iodine and Iodide Containing Allergy Verified 07/05/18 16:04 Produc nuts Allergy Mild Uncoded 07/05/18 16:04 - Home Medications Home Medications: Ambulatory Orders Albuterol Sulfate Inhaler - [Ventolin HFA Inhaler -] 1 - 2 inh PO QID #1 inhaler 06/02/18 Aspirin [ASA -] 81 mg PO DAILY 06/02/18 Atorvastatin Ca [Lipitor] 40 mg PO HS 06/02/18 Duloxetine HCl 30 mg PO DAILY 06/02/18 Furosemide [Lasix] 80 mg PO BID 06/02/18 Isosorbide Mononitrate [Imdur -] 60 mg PO DAILY 06/02/18 Mirtazapine 15 mg PO DAILY 06/02/18 Montelukast Sodium [Singulair] 10 mg PO DAILY 06/02/18 Salmeterol/Fluticasone [Advair 100Mcg/50Mcg -] 1 inh IH DAILY #30 inh 06/02/18 Sennosides [Senna] 8.6 mg PO PRN PRN #30 tablet 06/02/18 Insulin (Levemir) [Levemir Vial] 10 unit SQ DAILY #1 vial 06/03/18 Insulin (Levemir) [Levemir Vial] 32 unit SQ HS #1 vial 06/03/18 Insulin Aspart [Novolog] See Protocol SQ AC 06/03/18 Ceftriaxone 2 gm-D5w Bag 2 gm IV DAILY 14 Days #14 ml 06/07/18 Amlodipine Besylate [Norvasc -] 5 mg PO DAILY tablet 06/09/18 Carvedilol [Coreg -] 25 mg PO BID tablet 06/09/18 Levothyroxine [Synthroid -] 88 mcg PO DAILY 30 Days #30 tablet 06/09/18 traMADol HCL [Ultram -] 25 mg PO Q12H PRN 7 Days #14 tablet MDD 2 06/09/18 Family Disease History - Family Disease History Family Disease History: CA: Mother (Breast), Other: Father ( in an MVA) Review of Systems - Review of Systems Constitutional: reports: No Symptoms Eyes: reports: No Symptoms HENT: reports: No Symptoms Neck: reports: No Symptoms Cardiovascular: reports: No Symptoms Respiratory: reports: SOB, SOB on Exertion Gastrointestinal: reports: No Symptoms Genitourinary: reports: No Symptoms Musculoskeletal: reports: No Symptoms Integumentary: reports: No Symptoms Neurological: reports: No Symptoms Endocrine: reports: No Symptoms Hematology/Lymphatic: reports: No Symptoms Psychiatric: reports: No Symptoms Physical Exam Vital Signs: Vital Signs Temperature 98.1 F 07/07/18 09:00 Pulse Rate 80 07/07/18 09:00 Respiratory Rate 18 07/07/18 09:00 Blood Pressure 143/72 07/07/18 09:00 O2 Sat by Pulse Oximetry (%) 98 07/06/18 21:00 Constitutional: Yes: No Distress, Calm, Obese Cardiovascular: Yes: Regular Rate and Rhythm Respiratory: Yes: Regular, Poor Air Entry, Rhonchi Gastrointestinal: Yes: Normal Bowel Sounds, Soft Musculoskeletal: Yes: WNL Extremities: Yes: WNL Neurological: Yes: Alert, Oriented Psychiatric: Yes: Alert, Oriented Labs: CBC, BMP 10/09/18 06:25 07/06/18 06:25 Imaging - Results Chest X-ray: Report Reviewed, Image Reviewed Assessment/Plan Problem List - Problems (1) COPD exacerbation Code(s): J44.1 - CHRONIC OBSTRUCTIVE PULMONARY DISEASE W (ACUTE) EXACERBATION (2) Diabetes Code(s): E11.9 - TYPE 2 DIABETES MELLITUS WITHOUT COMPLICATIONS (3) HTN (hypertension) Code(s): I10 - ESSENTIAL (PRIMARY) HYPERTENSION (4) Pneumonia Code(s): J18.9 - PNEUMONIA, UNSPECIFIED ORGANISM (5) CVA (cerebral vascular accident) Code(s): I63.9 - CEREBRAL INFARCTION, UNSPECIFIED patient received iv abx looked at the patient and the imaging studies plan will hold off on abx for the time being will monitor closely more of a copd picture if patient detoriates dash start abx
--- NOTE | 2018-07-07 14:14 | PN ---
Progress Note, Physician History of Present Illness: stable no new issues breathing better - Current Medication List Current Medications: Active Medications Acetaminophen (Tylenol -) 650 mg PO Q6H PRN PRN Reason: FEVER Last Admin: 07/07/18 10:57 Dose: 650 mg Albuterol/Ipratropium (Duoneb -) 1 amp NEB RQID [facility] Last Admin: 07/07/18 11:04 Dose: 1 amp Amlodipine Besylate (Norvasc -) 5 mg PO DAILY [facility] Last Admin: 07/07/18 10:53 Dose: 5 mg Aspirin (Asa -) 81 mg PO DAILY [facility] Last Admin: 07/07/18 10:53 Dose: 81 mg Atorvastatin Calcium (Lipitor -) 40 mg PO HS [facility] Last Admin: 07/06/18 22:24 Dose: 40 mg Carvedilol (Coreg -) 25 mg PO BID [facility] Last Admin: 07/07/18 10:53 Dose: 25 mg Furosemide (Lasix -) 80 mg PO BIDLASIX [facility] Last Admin: 07/07/18 13:33 Dose: 80 mg Heparin Sodium (Porcine) (Heparin -) 5,000 unit SQ BID [facility] Last Admin: 07/07/18 10:53 Dose: 5,000 unit Insulin Aspart (Novolog Vial Sliding Scale -) 1 vial SQ [facility]; Protocol Last Admin: 07/07/18 12:37 Dose: 14 unit Insulin Detemir (Levemir Vial) 32 units SQ [facility] Last Admin: 07/06/18 22:17 Dose: 32 units Isosorbide Mononitrate (Imdur -) 60 mg PO DAILY [facility] Last Admin: 07/07/18 10:53 Dose: 60 mg Methylprednisolone Sodium Succinate (Solu-Medrol -) 60 mg IVPUSH Q8H-IV [facility] Stop: 07/07/18 18:01 Last Admin: 07/07/18 10:54 Dose: 60 mg Mirtazapine (Remeron -) 15 mg PO [facility] Last Admin: 07/06/18 22:24 Dose: 15 mg Montelukast Sodium (Singulair -) 10 mg PO [facility] Last Admin: 07/06/18 22:24 Dose: 10 mg Senna (Senna -) 1 tab PO DAILY PRN PRN Reason: CONSTIPATION - Objective Vital Signs: Vital Signs Temperature 98.1 F 07/07/18 09:00 Pulse Rate 80 10/10/18 09:00 Respiratory Rate 18 07/07/18 09:00 Blood Pressure 143/72 07/07/18 09:00 O2 Sat by Pulse Oximetry (%) 98 07/06/18 21:00 Constitutional: Yes: No Distress, Calm, Obese Cardiovascular: Yes: Regular Rate and Rhythm Respiratory: Yes: On Nasal O2, Poor Air Entry Gastrointestinal: Yes: Normal Bowel Sounds, Soft Musculoskeletal: Yes: WNL Extremities: Yes: WNL Neurological: Yes: Alert, Oriented Psychiatric: Yes: Alert, Oriented Labs: CBC, BMP 07/06/18 06:25 07/06/18 06:25 INR, PTT INR 1.08 (0.83-1.09) 07/05/18 16:50 Assessment/Plan Problem List - Problems (1) COPD exacerbation Code(s): J44.1 - CHRONIC OBSTRUCTIVE PULMONARY DISEASE W (ACUTE) EXACERBATION (2) Diabetes Code(s): E11.9 - TYPE 2 DIABETES MELLITUS WITHOUT COMPLICATIONS (3) HTN (hypertension) Code(s): I10 - ESSENTIAL (PRIMARY) HYPERTENSION (4) Pneumonia Code(s): J18.9 - PNEUMONIA, UNSPECIFIED ORGANISM (5) CVA (cerebral vascular accident) Code(s): I63.9 - CEREBRAL INFARCTION, UNSPECIFIED patient received iv abx looked at the patient and the imaging studies plan continue to monitor rest as per the team incentive chino nebs as per pul
[2018-07-07 16:00] VITALS: BMI 50.6
--- NOTE | 2018-07-07 17:22 | PN ---
Progress Note, Physician History of Present Illness: feeling better - Current Medication List Current Medications: Active Medications Acetaminophen (Tylenol -) 650 mg PO Q6H PRN PRN Reason: FEVER Last Admin: 07/07/18 10:57 Dose: 650 mg Albuterol/Ipratropium (Duoneb -) 1 amp NEB RQID [facility] Last Admin: 07/07/18 16:48 Dose: 1 amp Amlodipine Besylate (Norvasc -) 5 mg PO DAILY [facility] Last Admin: 07/07/18 10:53 Dose: 5 mg Aspirin (Asa -) 81 mg PO DAILY [facility] Last Admin: 07/07/18 10:53 Dose: 81 mg Atorvastatin Calcium (Lipitor -) 40 mg PO HS [facility] Last Admin: 07/06/18 22:24 Dose: 40 mg Carvedilol (Coreg -) 25 mg PO BID [facility] Last Admin: 07/07/18 10:53 Dose: 25 mg Furosemide (Lasix -) 80 mg PO BIDLASIX [facility] Last Admin: 07/07/18 13:33 Dose: 80 mg Heparin Sodium (Porcine) (Heparin -) 5,000 unit SQ BID [facility] Last Admin: 07/07/18 10:53 Dose: 5,000 unit Insulin Aspart (Novolog Vial Sliding Scale -) 1 vial SQ [facility]; Protocol Last Admin: 07/07/18 12:37 Dose: 14 unit Insulin Detemir (Levemir Vial) 32 units SQ [facility] Last Admin: 07/06/18 22:17 Dose: 32 units Isosorbide Mononitrate (Imdur -) 60 mg PO DAILY [facility] Last Admin: 07/07/18 10:53 Dose: 60 mg Methylprednisolone Sodium Succinate (Solu-Medrol -) 60 mg IVPUSH Q8H-IV [facility] Stop: 07/07/18 18:01 Last Admin: 07/07/18 10:54 Dose: 60 mg Mirtazapine (Remeron -) 15 mg PO [facility] Last Admin: 07/06/18 22:24 Dose: 15 mg Montelukast Sodium (Singulair -) 10 mg PO [facility] Last Admin: 07/06/18 22:24 Dose: 10 mg Senna (Senna -) 1 tab PO DAILY PRN PRN Reason: CONSTIPATION - Objective Vital Signs: Vital Signs Temperature 98 F 07/07/18 14:25 Pulse Rate 83 07/07/18 14:25 Respiratory Rate 16 07/07/18 14:25 Blood Pressure 119/69 07/07/18 14:25 O2 Sat by Pulse Oximetry (%) 100 07/07/18 09:00 Constitutional: Yes: No Distress HENT: Yes: Atraumatic Neck: Yes: Supple Cardiovascular: Yes: Regular Rate and Rhythm Respiratory: Yes: Rhonchi Gastrointestinal: Yes: Normal Bowel Sounds Extremities: Yes: WNL Edema: Yes Neurological: Yes: Alert, Oriented Labs: CBC, BMP 07/06/18 06:25 07/06/18 06:25 INR, PTT INR 1.08 (0.83-1.09) 07/05/18 16:50 Problem List - Problems (1) COPD exacerbation Assessment/Plan: prn duo nebs iv steroids Code(s): J44.1 - CHRONIC OBSTRUCTIVE PULMONARY DISEASE W (ACUTE) EXACERBATION (2) Diabetes Assessment/Plan: on meds bgms insulin Code(s): E11.9 - TYPE 2 DIABETES MELLITUS WITHOUT COMPLICATIONS (3) HTN (hypertension) Assessment/Plan: on meds Code(s): I10 - ESSENTIAL (PRIMARY) HYPERTENSION (4) Pneumonia Assessment/Plan: not on abx id on board Code(s): J18.9 - PNEUMONIA, UNSPECIFIED ORGANISM (5) CVA (cerebral vascular accident) Code(s): I63.9 - CEREBRAL INFARCTION, UNSPECIFIED
[2018-07-07] MEDS ORDERED: INSULIN (NOVOLOG) ASPART 100 UNITS/ML 10ML VIAL SQ ONE ×2 (18:30→22:00)
[2018-07-07] MEDS ORDERED: ALBUTEROL SO4 2.5/IPRATROPIUM 0.5 INH SOL 3 ML VIAL.NEB. NEB PRN (19:42)
[2018-07-07] MEDS: INSULIN (LEVEMIR) 100 UNITS/ML UNITS SQ SCH (21:57)
[2018-07-07] MEDS: ATORVASTATIN CA 40 MG TABLET (FP) PO SCH (21:57)
[2018-07-07] MEDS: MIRTAZAPINE 15 MG TABLET (FP) PO SCH (21:57)
[2018-07-07] MEDS: MONTELUKAST NA 10 MG TABLET PO SCH (21:57)
[2018-07-07] MEDS: NYSTATIN/TRIAMCINOLONE TOPICAL CREAM 15 GM TUBE TP SCH (21:57)
[2018-07-08] MEDS ORDERED: PT OWN MED DRAWER 7, Y5N ONE ×3 (05:54→08:58)
[2018-07-08] MEDS: INSULIN SLIDING SCALE (NOVOLOG) 1 VIAL SQ SCH ×4 (06:36→21:59)
[2018-07-08] MEDS: FUROSEMIDE 40 MG TABLET (FP) PO SCH ×2 (06:37→15:07)
[2018-07-08] MEDS ORDERED: INSULIN (NOVOLOG) ASPART 100 UNITS/ML 10ML VIAL ONE ×2 (06:52→12:17)
[2018-07-08] MEDS ORDERED: INSULIN (LEVEMIR) 100 UNITS/ML UNITS SQ ONE (06:52)
[2018-07-08] MEDS: ALBUTEROL SO4 2.5/IPRATROPIUM 0.5 INH SOL 3 ML VIAL.NEB. NEB SCH ×4 (07:33→20:15)
[2018-07-08] MEDS: ISOSORBIDE MONONITRATE 60 MG TAB.SR.24H (FP) PO SCH (09:02)
[2018-07-08] MEDS: amLODIPine BESYLATE 5 MG TABLET (FP) PO SCH (09:02)
[2018-07-08] MEDS: HEPARIN NA (PORCINE) 5,000 UNITS/ML 1ML VIAL SQ SCH ×2 (09:03→22:00)
[2018-07-08] MEDS: ASPIRIN 81 MG CHEWABLE TABLETS PO SCH (09:03)
[2018-07-08] MEDS: NYSTATIN/TRIAMCINOLONE TOPICAL CREAM 15 GM TUBE TP SCH ×2 (09:03→22:00)
[2018-07-08] MEDS: CARVEDILOL 25 MG TABLET (FP) PO SCH ×2 (09:03→22:00)
--- NOTE | 2018-07-08 11:42 | PN ---
Progress Note (short form) - Note Progress Note: PULMONARY Denies shortness of breath, cough or wheezing. Vital Signs Period Temp Pulse Resp BP Sys/Mike Pulse Ox Last 24 Hr 97.7 F-98 F 72-83 16-18 119-149/69-74 100 Gen: NAD at rest Heart: RRR lung: decreased breath sounds at the bases, no wheezes Abd: soft, nontender Ext: no edema CBC, BMP 07/06/18 06:25 07/07/18 21:40 Active Medications Acetaminophen (Tylenol -) 650 mg PO Q6H PRN PRN Reason: FEVER Last Admin: 07/07/18 10:57 Dose: 650 mg Albuterol/Ipratropium (Duoneb -) 1 amp NEB RQID [facility] Last Admin: 07/07/18 20:46 Dose: 1 amp Albuterol/Ipratropium (Duoneb -) 1 amp NEB Q4H PRN PRN Reason: SHORTNESS OF BREATH Amlodipine Besylate (Norvasc -) 5 mg PO DAILY [facility] Last Admin: 07/08/18 09:02 Dose: 5 mg Aspirin (Asa -) 81 mg PO DAILY [facility] Last Admin: 07/08/18 09:03 Dose: 81 mg Atorvastatin Calcium (Lipitor -) 40 mg PO HS [facility] Last Admin: 07/07/18 21:57 Dose: 40 mg Carvedilol (Coreg -) 25 mg PO BID [facility] Last Admin: 07/08/18 09:03 Dose: 25 mg Furosemide (Lasix -) 80 mg PO BIDLASIX [facility] Last Admin: 07/08/18 06:37 Dose: 80 mg Heparin Sodium (Porcine) (Heparin -) 5,000 unit SQ BID [facility] Last Admin: 07/08/18 09:03 Dose: 5,000 unit Insulin Aspart (Novolog Vial Sliding Scale -) 1 vial SQ [facility]; Protocol Last Admin: 07/08/18 06:36 Dose: 12 unit Insulin Detemir (Levemir Vial) 32 units SQ [facility] Last Admin: 07/07/18 21:57 Dose: 32 units Isosorbide Mononitrate (Imdur -) 60 mg PO DAILY [facility] Last Admin: 07/08/18 09:02 Dose: 60 mg Mirtazapine (Remeron -) 15 mg PO HS [facility] Last Admin: 07/07/18 21:57 Dose: 15 mg Montelukast Sodium (Singulair -) 10 mg PO HS [facility] Last Admin: 07/07/18 21:57 Dose: 10 mg Nystatin/Triamcinolone Acetonide (Mycolog Ii Cream -) 1 applic TP BID [facility] Last Admin: 07/08/18 09:03 Dose: 1 applic Senna (Senna -) 1 tab PO DAILY PRN PRN Reason: CONSTIPATION A/P Acute COPD Exacerbation Acute Bronchitis HTN DM Hyperlipidemia CAD CKD h/o CVA Morbid Obesity - decrease medrol, can likely change to PO prednisone tomorrow and taper as outpt - inhaled bronchodilators standing and PRN - empiric antibiotics - O2 to keep Spo2 >90% - monitor urine output, creatinine - DVT prophylaxis Problem List - Problems (1) COPD exacerbation Code(s): J44.1 - CHRONIC OBSTRUCTIVE PULMONARY DISEASE W (ACUTE) EXACERBATION (2) Acute bronchitis Code(s): J20.9 - ACUTE BRONCHITIS, UNSPECIFIED (3) Diabetes Code(s): E11.9 - TYPE 2 DIABETES MELLITUS WITHOUT COMPLICATIONS (4) HTN (hypertension) Code(s): I10 - ESSENTIAL (PRIMARY) HYPERTENSION (5) CKD (chronic kidney disease) Code(s): N18.9 - CHRONIC KIDNEY DISEASE, UNSPECIFIED Qualifiers: Chronic kidney disease stage: unspecified stage Qualified Code(s): N18.9 - Chronic kidney disease, unspecified
[2018-07-08] MEDS: methylPREDNISolone NA SUCC 40 MG/1 ML VIAL IVPUSH SCH ×2 (12:30→22:00)
--- NOTE | 2018-07-08 16:42 | PN ---
Progress Note, Physician - Current Medication List Current Medications: Active Medications Acetaminophen (Tylenol -) 650 mg PO Q6H PRN PRN Reason: FEVER Last Admin: 07/07/18 10:57 Dose: 650 mg Albuterol/Ipratropium (Duoneb -) 1 amp NEB RQID [facility] Last Admin: 07/08/18 16:04 Dose: 1 amp Albuterol/Ipratropium (Duoneb -) 1 amp NEB Q4H PRN PRN Reason: SHORTNESS OF BREATH Amlodipine Besylate (Norvasc -) 5 mg PO DAILY [facility] Last Admin: 07/08/18 09:02 Dose: 5 mg Aspirin (Asa -) 81 mg PO DAILY [facility] Last Admin: 07/08/18 09:03 Dose: 81 mg Atorvastatin Calcium (Lipitor -) 40 mg PO HS [facility] Last Admin: 07/07/18 21:57 Dose: 40 mg Carvedilol (Coreg -) 25 mg PO BID [facility] Last Admin: 07/08/18 09:03 Dose: 25 mg Furosemide (Lasix -) 80 mg PO BIDLASIX [facility] Last Admin: 07/08/18 15:07 Dose: 80 mg Heparin Sodium (Porcine) (Heparin -) 5,000 unit SQ BID [facility] Last Admin: 07/08/18 09:03 Dose: 5,000 unit Insulin Aspart (Novolog Vial Sliding Scale -) 1 vial SQ [facility]; Protocol Last Admin: 07/08/18 11:45 Dose: 10 unit Insulin Detemir (Levemir Vial) 32 units SQ [facility] Last Admin: 07/07/18 21:57 Dose: 32 units Isosorbide Mononitrate (Imdur -) 60 mg PO DAILY [facility] Last Admin: 07/08/18 09:02 Dose: 60 mg Methylprednisolone Sodium Succinate (Solu-Medrol -) 40 mg IVPUSH BID [facility] Last Admin: 07/08/18 12:30 Dose: 40 mg Mirtazapine (Remeron -) 15 mg PO HS [facility] Last Admin: 07/07/18 21:57 Dose: 15 mg Montelukast Sodium (Singulair -) 10 mg PO HS [facility] Last Admin: 07/07/18 21:57 Dose: 10 mg Nystatin/Triamcinolone Acetonide (Mycolog Ii Cream -) 1 applic TP BID [facility] Last Admin: 07/08/18 09:03 Dose: 1 applic Senna (Senna -) 1 tab PO DAILY PRN PRN Reason: CONSTIPATION Last Admin: 07/08/18 15:18 Dose: 1 tab - Objective Vital Signs: Vital Signs Temperature 98.6 F 07/08/18 13:12 Pulse Rate 76 07/08/18 13:12 Respiratory Rate 18 07/08/18 13:12 Blood Pressure 122/60 07/08/18 13:12 O2 Sat by Pulse Oximetry (%) 100 07/07/18 21:00 Labs: CBC, BMP 07/06/18 06:25 07/07/18 21:40 INR, PTT INR 1.08 (0.83-1.09) 07/05/18 16:50
--- NOTE | 2018-07-08 17:27 | PN ---
Progress Note, Physician History of Present Illness: feeling better - Current Medication List Current Medications: Active Medications Acetaminophen (Tylenol -) 650 mg PO Q6H PRN PRN Reason: FEVER Last Admin: 07/07/18 10:57 Dose: 650 mg Albuterol/Ipratropium (Duoneb -) 1 amp NEB RQID [facility] Last Admin: 07/08/18 16:04 Dose: 1 amp Albuterol/Ipratropium (Duoneb -) 1 amp NEB Q4H PRN PRN Reason: SHORTNESS OF BREATH Amlodipine Besylate (Norvasc -) 5 mg PO DAILY [facility] Last Admin: 07/08/18 09:02 Dose: 5 mg Aspirin (Asa -) 81 mg PO DAILY [facility] Last Admin: 07/08/18 09:03 Dose: 81 mg Atorvastatin Calcium (Lipitor -) 40 mg PO HS [facility] Last Admin: 07/07/18 21:57 Dose: 40 mg Carvedilol (Coreg -) 25 mg PO BID [facility] Last Admin: 07/08/18 09:03 Dose: 25 mg Furosemide (Lasix -) 80 mg PO BIDLASIX [facility] Last Admin: 07/08/18 15:07 Dose: 80 mg Heparin Sodium (Porcine) (Heparin -) 5,000 unit SQ BID [facility] Last Admin: 07/08/18 09:03 Dose: 5,000 unit Insulin Aspart (Novolog Vial Sliding Scale -) 1 vial SQ [facility]; Protocol Last Admin: 07/08/18 17:15 Dose: 12 unit Insulin Detemir (Levemir Vial) 32 units SQ HS [facility] Last Admin: 07/07/18 21:57 Dose: 32 units Isosorbide Mononitrate (Imdur -) 60 mg PO DAILY [facility] Last Admin: 07/08/18 09:02 Dose: 60 mg Methylprednisolone Sodium Succinate (Solu-Medrol -) 40 mg IVPUSH BID [facility] Last Admin: 07/08/18 12:30 Dose: 40 mg Mirtazapine (Remeron -) 15 mg PO HS [facility] Last Admin: 07/07/18 21:57 Dose: 15 mg Montelukast Sodium (Singulair -) 10 mg PO HS [facility] Last Admin: 07/07/18 21:57 Dose: 10 mg Nystatin/Triamcinolone Acetonide (Mycolog Ii Cream -) 1 applic TP BID [facility] Last Admin: 07/08/18 09:03 Dose: 1 applic Senna (Senna -) 1 tab PO DAILY PRN PRN Reason: CONSTIPATION Last Admin: 07/08/18 15:18 Dose: 1 tab - Objective Vital Signs: Vital Signs Temperature 98.6 F 07/08/18 13:12 Pulse Rate 76 07/08/18 13:12 Respiratory Rate 18 07/08/18 13:12 Blood Pressure 122/60 07/08/18 13:12 O2 Sat by Pulse Oximetry (%) 100 07/07/18 21:00 Constitutional: Yes: No Distress HENT: Yes: Atraumatic Neck: Yes: Supple Cardiovascular: Yes: Regular Rate and Rhythm Respiratory: Yes: Rhonchi Gastrointestinal: Yes: Normal Bowel Sounds Extremities: Yes: WNL Edema: Yes Edema: LLE: Trace, RLE: Trace Neurological: Yes: Alert, Oriented Labs: CBC, BMP 07/06/18 06:25 07/07/18 21:40 INR, PTT INR 1.08 (0.83-1.09) 07/05/18 16:50 Problem List - Problems (1) COPD exacerbation Assessment/Plan: prn duo nebs will switch to po steroids from tomorrow Code(s): J44.1 - CHRONIC OBSTRUCTIVE PULMONARY DISEASE W (ACUTE) EXACERBATION (2) Diabetes Assessment/Plan: on meds bgms insulin Code(s): E11.9 - TYPE 2 DIABETES MELLITUS WITHOUT COMPLICATIONS (3) HTN (hypertension) Assessment/Plan: on meds Code(s): I10 - ESSENTIAL (PRIMARY) HYPERTENSION (4) Pneumonia Assessment/Plan: not on abx afebrile id on board Code(s): J18.9 - PNEUMONIA, UNSPECIFIED ORGANISM (5) CVA (cerebral vascular accident) Code(s): I63.9 - CEREBRAL INFARCTION, UNSPECIFIED Assessment/Plan pt is informed that she will go home tomorrow
[2018-07-08 19:52] LABS: BASO % 0.2 % (0-2.0); HEMATOCRIT 27.7 % (32.4-45.2); LYMPH % 8.4 % (8-40); MCH 27.1 pg (25.7-33.7); MCHC 32.6 g/dl (32.0-36.0); MEAN CELL VOLUME 83.3 fl (80-96); MEAN PLT VOLUME 9.2 fl (7.5-11.1); MONO % 3.5 % (3.8-10.2); NEUT % 87.9 % (42.8-82.8); PLATELET COUNT 156 K/MM3 (134-434); RBC 3.32 M/mm3 (3.60-5.2); RDW 18.5 % (11.6-15.6); WHITE BLOOD COUNT 8.6 K/mm3 (4.0-10.0)
[2018-07-08 20:27] LABS: ALBUMIN 2.6 g/dl (3.4-5.0); ALK PHOS 56 U/L (45-117); ANION GAP 9 MMOL/L (8-16); BILIRUBIN,TOTAL 0.4 mg/dL (0.2-1); BLOOD UREA NITROGEN 68 mg/dL (7-18); CALCIUM 8.7 mg/dL (8.5-10.1); CHLORIDE 98 mmol/L (98-107); CO2 26 mmol/L (21-32); CREATININE 2.3 mg/dL (0.55-1.3); GLUCOSE,RANDOM 297 mg/dL (74-106); SGOT/AST 7 U/L (15-37); SGPT/ALT 14 U/L (13-61); SODIUM 134 mmol/L (136-145); TOT PROT 6.1 g/dl (6.4-8.2)
[2018-07-08] MEDS: INSULIN (LEVEMIR) 100 UNITS/ML UNITS SQ SCH (21:59)
[2018-07-08] MEDS: MIRTAZAPINE 15 MG TABLET (FP) PO SCH (22:00)
[2018-07-08] MEDS: ATORVASTATIN CA 40 MG TABLET (FP) PO SCH (22:00)
[2018-07-08] MEDS: MONTELUKAST NA 10 MG TABLET PO SCH (22:00)
[2018-07-09] MEDS: FUROSEMIDE 40 MG TABLET (FP) PO SCH ×2 (05:43→14:59)
[2018-07-09] MEDS: INSULIN SLIDING SCALE (NOVOLOG) 1 VIAL SQ SCH ×2 (06:01→11:12)
[2018-07-09] MEDS: ALBUTEROL SO4 2.5/IPRATROPIUM 0.5 INH SOL 3 ML VIAL.NEB. NEB SCH ×2 (08:49→12:12)
[2018-07-09] MEDS ORDERED: predniSONE 20 MG TABLET (UD) PO SCH (10:15)
[2018-07-09 10:54] VITALS: PULSE 65
[2018-07-09] MEDS: amLODIPine BESYLATE 5 MG TABLET (FP) PO SCH (11:06)
[2018-07-09] MEDS: NYSTATIN/TRIAMCINOLONE TOPICAL CREAM 15 GM TUBE TP SCH (11:06)
[2018-07-09] MEDS: ASPIRIN 81 MG CHEWABLE TABLETS PO SCH (11:06)
[2018-07-09] MEDS: CARVEDILOL 25 MG TABLET (FP) PO SCH (11:08)
[2018-07-09] MEDS: HEPARIN NA (PORCINE) 5,000 UNITS/ML 1ML VIAL SQ SCH ×2 (11:08→11:15)
[2018-07-09] MEDS: ISOSORBIDE MONONITRATE 60 MG TAB.SR.24H (FP) PO SCH (11:08)
[2018-07-09] MEDS ORDERED: INSULIN (NOVOLOG) ASPART 100 UNITS/ML 10ML VIAL ONE (11:23)
--- NOTE | 2018-07-09 13:13 | PN ---
Progress Note, Physician History of Present Illness: stable having headaches but otherwise no issues - Current Medication List Current Medications: Active Medications Acetaminophen (Tylenol -) 650 mg PO Q6H PRN PRN Reason: FEVER Last Admin: 07/07/18 10:57 Dose: 650 mg Albuterol/Ipratropium (Duoneb -) 1 amp NEB RQID [facility] Last Admin: 07/09/18 12:12 Dose: 1 amp Albuterol/Ipratropium (Duoneb -) 1 amp NEB Q4H PRN PRN Reason: SHORTNESS OF BREATH Amlodipine Besylate (Norvasc -) 5 mg PO DAILY [facility] Last Admin: 07/09/18 11:06 Dose: 5 mg Aspirin (Asa -) 81 mg PO DAILY [facility] Last Admin: 07/09/18 11:06 Dose: 81 mg Atorvastatin Calcium (Lipitor -) 40 mg PO HS [facility] Last Admin: 07/08/18 22:00 Dose: 40 mg Carvedilol (Coreg -) 25 mg PO BID [facility] Last Admin: 07/09/18 11:08 Dose: 25 mg Furosemide (Lasix -) 80 mg PO BIDLASIX [facility] Last Admin: 07/09/18 05:43 Dose: 80 mg Heparin Sodium (Porcine) (Heparin -) 5,000 unit SQ BID [facility] Last Admin: 07/09/18 11:15 Dose: Not Given Insulin Aspart (Novolog Vial Sliding Scale -) 1 vial SQ [facility]; Protocol Last Admin: 07/09/18 11:12 Dose: 8 unit Insulin Detemir (Levemir Vial) 32 units SQ [facility] Last Admin: 07/08/18 21:59 Dose: 32 units Isosorbide Mononitrate (Imdur -) 60 mg PO DAILY [facility] Last Admin: 07/09/18 11:08 Dose: 60 mg Mirtazapine (Remeron -) 15 mg PO HS [facility] Last Admin: 07/08/18 22:00 Dose: 15 mg Montelukast Sodium (Singulair -) 10 mg PO HS [facility] Last Admin: 07/08/18 22:00 Dose: 10 mg Nystatin/Triamcinolone Acetonide (Mycolog Ii Cream -) 1 applic TP BID [facility] Last Admin: 07/09/18 11:06 Dose: 1 applic Prednisone (Deltasone -) 40 mg PO DAILY [facility] Last Admin: 07/09/18 11:08 Dose: 40 mg Senna (Senna -) 1 tab PO DAILY PRN PRN Reason: CONSTIPATION Last Admin: 07/08/18 15:18 Dose: 1 tab - Objective Vital Signs: Vital Signs Temperature 97.4 F L 07/09/18 02:00 Pulse Rate 65 07/09/18 10:52 Respiratory Rate 18 07/09/18 02:00 Blood Pressure 133/59 L 07/09/18 02:00 O2 Sat by Pulse Oximetry (%) 98 07/09/18 10:52 Constitutional: Yes: No Distress, Calm, Obese Cardiovascular: Yes: Regular Rate and Rhythm Respiratory: Yes: Regular, CTA Bilaterally Gastrointestinal: Yes: Normal Bowel Sounds, Soft Musculoskeletal: Yes: WNL Extremities: Yes: WNL Neurological: Yes: Alert, Oriented Psychiatric: Yes: Alert, Oriented Labs: CBC, BMP 07/08/18 19:15 07/08/18 19:15 INR, PTT INR 1.08 (0.83-1.09) 07/05/18 16:50 Assessment/Plan Problem List - Problems (1) COPD exacerbation Code(s): J44.1 - CHRONIC OBSTRUCTIVE PULMONARY DISEASE W (ACUTE) EXACERBATION (2) Diabetes Code(s): E11.9 - TYPE 2 DIABETES MELLITUS WITHOUT COMPLICATIONS (3) HTN (hypertension) Code(s): I10 - ESSENTIAL (PRIMARY) HYPERTENSION (4) Pneumonia Code(s): J18.9 - PNEUMONIA, UNSPECIFIED ORGANISM (5) CVA (cerebral vascular accident) Code(s): I63.9 - CEREBRAL INFARCTION, UNSPECIFIED plan continue to monitor rest as per the team incentive chino nebs as per pul
--- NOTE | 2018-07-09 13:23 | PN ---
Progress Note, Physician History of Present Illness: pulmonary alert,no distress,-sob - Current Medication List Current Medications: Active Medications Acetaminophen (Tylenol -) 650 mg PO Q6H PRN PRN Reason: FEVER Last Admin: 07/07/18 10:57 Dose: 650 mg Albuterol/Ipratropium (Duoneb -) 1 amp NEB RQID [facility] Last Admin: 07/09/18 12:12 Dose: 1 amp Albuterol/Ipratropium (Duoneb -) 1 amp NEB Q4H PRN PRN Reason: SHORTNESS OF BREATH Amlodipine Besylate (Norvasc -) 5 mg PO DAILY [facility] Last Admin: 07/09/18 11:06 Dose: 5 mg Aspirin (Asa -) 81 mg PO DAILY [facility] Last Admin: 07/09/18 11:06 Dose: 81 mg Atorvastatin Calcium (Lipitor -) 40 mg PO HS [facility] Last Admin: 07/08/18 22:00 Dose: 40 mg Carvedilol (Coreg -) 25 mg PO BID [facility] Last Admin: 07/09/18 11:08 Dose: 25 mg Furosemide (Lasix -) 80 mg PO BIDLASIX [facility] Last Admin: 07/09/18 05:43 Dose: 80 mg Heparin Sodium (Porcine) (Heparin -) 5,000 unit SQ BID [facility] Last Admin: 07/09/18 11:15 Dose: Not Given Insulin Aspart (Novolog Vial Sliding Scale -) 1 vial SQ [facility]; Protocol Last Admin: 07/09/18 11:12 Dose: 8 unit Insulin Detemir (Levemir Vial) 32 units SQ [facility] Last Admin: 07/08/18 21:59 Dose: 32 units Isosorbide Mononitrate (Imdur -) 60 mg PO DAILY [facility] Last Admin: 07/09/18 11:08 Dose: 60 mg Mirtazapine (Remeron -) 15 mg PO HS [facility] Last Admin: 07/08/18 22:00 Dose: 15 mg Montelukast Sodium (Singulair -) 10 mg PO HS [facility] Last Admin: 07/08/18 22:00 Dose: 10 mg Nystatin/Triamcinolone Acetonide (Mycolog Ii Cream -) 1 applic TP BID [facility] Last Admin: 07/09/18 11:06 Dose: 1 applic Prednisone (Deltasone -) 40 mg PO DAILY [facility] Last Admin: 07/09/18 11:08 Dose: 40 mg Senna (Senna -) 1 tab PO DAILY PRN PRN Reason: CONSTIPATION Last Admin: 07/08/18 15:18 Dose: 1 tab - Objective Vital Signs: Vital Signs Temperature 97.4 F L 07/09/18 02:00 Pulse Rate 65 07/09/18 10:52 Respiratory Rate 18 07/09/18 02:00 Blood Pressure 133/59 L 07/09/18 02:00 O2 Sat by Pulse Oximetry (%) 98 07/09/18 10:52 Constitutional: Yes: Calm Eyes: Yes: WNL HENT: Yes: WNL Neck: Yes: WNL Cardiovascular: Yes: Regular Rate and Rhythm, S1 Respiratory: Yes: Diminished Gastrointestinal: Yes: Normal Bowel Sounds, Soft Extremities: Yes: WNL Edema: Yes (R>L) Labs: Assessment/Plan Problem List - Problems (1) COPD exacerbation Code(s): J44.1 - CHRONIC OBSTRUCTIVE PULMONARY DISEASE W (ACUTE) EXACERBATION (2) Acute bronchitis Code(s): J20.9 - ACUTE BRONCHITIS, UNSPECIFIED (3) Diabetes Code(s): E11.9 - TYPE 2 DIABETES MELLITUS WITHOUT COMPLICATIONS (4) HTN (hypertension) Code(s): I10 - ESSENTIAL (PRIMARY) HYPERTENSION (5) CKD (chronic kidney disease) Code(s): N18.9 - CHRONIC KIDNEY DISEASE, UNSPECIFIED Qualifiers: Chronic kidney disease stage: unspecified stage Qualified Code(s): N18.9 - Chronic kidney disease, unspecified Assessment/Plan Acute COPD Exacerbation improving Acute Bronchitis HTN DM Hyperlipidemia CAD CKD h/o CVA Morbid Obesity - prednisone - inhaled bronchodilators standing and PRN - O2 to keep Spo2 >90% - monitor urine output, creatinine - DVT prophylaxis DR ZHU
[2018-07-09 14:52] VITALS: BP 129/73
[2018-07-09 15:16] VITALS: TEMP 98
--- NOTE | 2018-07-09 15:51 | DS ---
Physical Examination Vital Signs: Vital Signs Temperature 98 F 07/09/18 15:16 Pulse Rate 65 07/09/18 14:50 Respiratory Rate 18 07/09/18 14:50 Blood Pressure 129/73 07/09/18 14:50 O2 Sat by Pulse Oximetry (%) 98 07/09/18 10:52 Constitutional: Yes: No Distress HENT: Yes: Atraumatic Neck: Yes: Supple Cardiovascular: Yes: Regular Rate and Rhythm Respiratory: Yes: Rhonchi Gastrointestinal: Yes: Normal Bowel Sounds Edema: Yes Peripheral Pulses WNL: Yes Labs: CBC, BMP 07/08/18 19:15 07/08/18 19:15 Discharge Summary Reason For Visit: COPD Current Active Problems Acute bronchitis (Acute) COPD exacerbation (Acute) Weakness (Acute) Condition: Guarded - Instructions Disposition: HOME - Home Medications Comprehensive Discharge Medication List: Ambulatory Orders Albuterol Sulfate Inhaler - [Ventolin HFA Inhaler -] 1 - 2 inh PO QID #1 inhaler 06/02/18 Aspirin [ASA -] 81 mg PO DAILY 06/02/18 Atorvastatin Ca [Lipitor] 40 mg PO HS 06/02/18 Duloxetine HCl 30 mg PO DAILY 06/02/18 Furosemide [Lasix] 80 mg PO BID 06/02/18 Isosorbide Mononitrate [Imdur -] 60 mg PO DAILY 06/02/18 Mirtazapine 15 mg PO DAILY 06/02/18 Montelukast Sodium [Singulair] 10 mg PO DAILY 06/02/18 Salmeterol/Fluticasone [Advair 100Mcg/50Mcg -] 1 inh IH DAILY #30 inh 06/02/18 Sennosides [Senna] 8.6 mg PO PRN PRN #30 tablet 06/02/18 Insulin (Levemir) [Levemir Vial] 10 unit SQ DAILY #1 vial 06/03/18 Insulin (Levemir) [Levemir Vial] 32 unit SQ HS #1 vial 06/03/18 Insulin Aspart [Novolog] See Protocol SQ AC 06/03/18 Ceftriaxone 2 gm-D5w Bag 2 gm IV DAILY 14 Days #14 ml 06/07/18 Amlodipine Besylate [Norvasc -] 5 mg PO DAILY tablet 06/09/18 Carvedilol [Coreg -] 25 mg PO BID tablet 06/09/18 Levothyroxine [Synthroid -] 88 mcg PO DAILY 30 Days #30 tablet 06/09/18 traMADol HCL [Ultram -] 25 mg PO Q12H PRN 7 Days #14 tablet MDD 2 06/09/18 Prednisone 10 mg PO ASDIR #30 tab.ds.pk 07/08/18 [facility]
== END 2018-07-09 16:38 | disposition home or self-care (01) | DRG 191 ==
LOC: JER 15:38 → JERBED 16:09 → J5S 07-06 16:32 → UNDODISIN 07-09 15:55
PROVIDERS: ADMIT Internal Medicine; ATTEND Internal Medicine
DX: J44.1 Chronic obstructive pulmonary disease with (acute) exacerbation (principal); Z68.43 Body mass index [BMI] 50.0-59.9, adult; I69.351 Hemiplegia and hemiparesis following cerebral infarction affecting right dominant side; J20.9 Acute bronchitis, unspecified; R53.1 Weakness; I12.9 Hypertensive chronic kidney disease with stage 1 through stage 4 chronic kidney disease, or unspecified chronic kidney disease; E11.22 Type 2 diabetes mellitus with diabetic chronic kidney disease; N18.9 Chronic kidney disease, unspecified; E78.5 Hyperlipidemia, unspecified; E66.01 Morbid (severe) obesity due to excess calories; I25.10 Atherosclerotic heart disease of native coronary artery without angina pectoris
CPT/HCPCS: 36415; 71045-TC-FY; 80053; 81003; 81015; 82550; 82803; 82947; 82962; 83605; 83735; 83880; 84443; 84484; 85025; 85610; 85730; 87040; 87086; 93005; 93010; 94640; 94761; 99285-25; J1644; J7620

== ENCOUNTER 2018-07-12 00:06 | Emergency (ER) | payer OTHER ==
[2018-07-12 00:40] VITALS: TEMP 98.1; BMI 61.9
--- NOTE | 2018-07-12 00:41 | PDOC ---
History of Present Illness - General Chief Complaint: Blood Sugar Problem Stated Complaint: HYPERGLYCEMIA Time Seen by Provider: 07/12/18 00:21 History Source: Patient, EMS Exam Limitations: No Limitations - History of Present Illness Initial Comments: This is a 77 YOF with h/o IDDM, COPD, chronic bronchitis, asthma, morbid obesity , hypothyroidism, chronic kidney disease, CVA (residual right-sided hemiparesis) , CAD (s/p cath), HTN, HLD, and anemia, who was BIBEMS for blood sugar measured as "high" on her home glucometer despite taking all her normal medications including insulin. She notes feeling very tired and generally weak, but denies any additional symptoms (no f/c/n/v/d/c, new n/t/w focally, SOB, palpitations, lightheadedness, headache, chest pain, abdominal pain, dysuria, vaginal bleeding or discharge, rash, change in weight, or other symptoms. She believes she has had DKA before but cannot remember for sure. She was admitted here to [facility] (discharged on 07/09/18) for COPD exacerbation, bronchitis. She was discharged on Prednisone 10 mg. 07/12/18 00:40 She is supposed to be on the following home medications according to Dr. Rosales 's DC note from 07/09/18: Albuterol Sulfate Inhaler - [Ventolin HFA Inhaler -] 1 - 2 inh PO QID #1 inhaler 06/02/18 Aspirin [ASA -] 81 mg PO DAILY 06/02/18 Atorvastatin Ca [Lipitor] 40 mg PO HS 06/02/18 Duloxetine HCl 30 mg PO DAILY 06/02/18 Furosemide [Lasix] 80 mg PO BID 06/02/18 Isosorbide Mononitrate [Imdur -] 60 mg PO DAILY 06/02/18 Mirtazapine 15 mg PO DAILY 06/02/18 Montelukast Sodium [Singulair] 10 mg PO DAILY 06/02/18 Salmeterol/Fluticasone [Advair 100Mcg/50Mcg -] 1 inh IH DAILY #30 inh 06/02/18 Sennosides [Senna] 8.6 mg PO PRN PRN #30 tablet 06/02/18 Insulin (Levemir) [Levemir Vial] 10 unit SQ DAILY #1 vial 06/03/18 Insulin (Levemir) [Levemir Vial] 32 unit SQ HS #1 vial 06/03/18 Insulin Aspart [Novolog] See Protocol SQ AC 06/03/18 Ceftriaxone 2 gm-D5w Bag 2 gm IV DAILY 14 Days #14 ml 06/07/18 Amlodipine Besylate [Norvasc -] 5 mg PO DAILY tablet 06/09/18 Carvedilol [Coreg -] 25 mg PO BID tablet 06/09/18 Levothyroxine [Synthroid -] 88 mcg PO DAILY 30 Days #30 tablet 06/09/18 traMADol HCL [Ultram -] 25 mg PO Q12H PRN 7 Days #14 tablet MDD 2 06/09/18 Prednisone 10 mg PO ASDIR #30 tab.ds.pk 07/08/18 Past History - Past Medical History Allergies/Adverse Reactions: Allergies Allergy/AdvReac Type Severity Reaction Status Date / Time codeine [Codeine] Allergy Severe Hives Verified 07/12/18 00:23 Iodine and Iodide Containing Allergy Verified 07/12/18 00:23 Produc nuts Allergy Mild Uncoded 07/12/18 00:23 Home Medications: Ambulatory Orders Albuterol Sulfate Inhaler - [Ventolin HFA Inhaler -] 1 - 2 inh PO QID #1 inhaler 06/02/18 Aspirin [ASA -] 81 mg PO DAILY 06/02/18 Atorvastatin Ca [Lipitor] 40 mg PO HS 06/02/18 Duloxetine HCl 30 mg PO DAILY 06/02/18 Furosemide [Lasix] 80 mg PO BID 06/02/18 Isosorbide Mononitrate [Imdur -] 60 mg PO DAILY 06/02/18 Mirtazapine 15 mg PO DAILY 06/02/18 Montelukast Sodium [Singulair] 10 mg PO DAILY 06/02/18 Salmeterol/Fluticasone [Advair 100Mcg/50Mcg -] 1 inh IH DAILY #30 inh 06/02/18 Sennosides [Senna] 8.6 mg PO PRN PRN #30 tablet 06/02/18 Insulin (Levemir) [Levemir Vial] 10 unit SQ DAILY #1 vial 06/03/18 Insulin (Levemir) [Levemir Vial] 32 unit SQ HS #1 vial 06/03/18 Insulin Aspart [Novolog] See Protocol SQ AC 06/03/18 Ceftriaxone 2 gm-D5w Bag 2 gm IV DAILY 14 Days #14 ml 06/07/18 Amlodipine Besylate [Norvasc -] 5 mg PO DAILY tablet 06/09/18 Carvedilol [Coreg -] 25 mg PO BID tablet 06/09/18 Levothyroxine [Synthroid -] 88 mcg PO DAILY 30 Days #30 tablet 06/09/18 traMADol HCL [Ultram -] 25 mg PO Q12H PRN 7 Days #14 tablet MDD 2 06/09/18 Prednisone 10 mg PO ASDIR #30 tab.ds.pk 07/08/18 Anemia: Yes Asthma: Yes Cardiac Disorders: Yes (CARDIAC CATH, HCVD) CVA: Yes (R hemiparesis) COPD: Yes CHF: No Diabetes: Yes HTN: Yes Thyroid Disease: Yes - Surgical History Cardiac Surgery: Yes (CARDIAC CATH) - Immunization History Immunization Up to Date: Yes - Suicide/Smoking/Psychosocial Hx Smoking Status: Yes Smoking History: Never smoked Have you smoked in the past 12 months: No Number of Cigarettes Smoked Daily: 0 If you are a former smoker, when did you quit?: 15 yrs ago Cigars Per Day: 0 Information on smoking cessation initiated: No Hx Alcohol Use: No Drug/Substance Use Hx: No Substance Use Type: None Hx Substance Use Treatment: No Review of Systems - Review of Systems Able to Perform ROS?: Yes *Physical Exam - Vital Signs Last Vital Signs Temp Pulse Resp BP Pulse Ox 98.1 F 76 18 145/70 98 07/12/18 00:22 07/12/18 00:22 07/12/18 00:22 07/12/18 00:22 07/12/18 00:22 ED Treatment Course - RADIOLOGY Radiology Studies Ordered: Category Date Time Status CHEST X-RAY PORTABLE* [RAD] Stat Radiology 07/12/18 00:34 Ordered *DC/Admit/Observation/Transfer - Discharge Dispostion Condition at time of disposition: Fair - Referrals - Patient Instructions - Post Discharge Activity
[2018-07-12] MEDS ORDERED: SODIUM CHLORIDE 0.9% 500 ML INFUS.BAG IV ONE ×2 (00:52→02:55)
--- NOTE | 2018-07-12 01:06 | PDOC ---
Attending Attestation - HPI HPI: 07/12/18 01:22 The patient is a 77 year old female, with a significant past medical history of IDDM, COPD, asthma, morbid obesity, chronic kidney disease, CVA (residual right-sided hemiparesis), CAD (s/p cath), HTN, HLD, and anemia, who presents to the emergency department with weakness and fatigue with associated high blood sugar measured at home this evening. The patient denies chest pain, shortness of breath, headache and dizziness. The patient denies fever, chills, nausea, vomit, diarrhea and constipation. The patient denies dysuria, frequency, urgency and hematuria. - Medical Decision Making 07/12/18 01:22 Documentation prepared by Odette Pinedo, acting as biomedical analytical scientist for Donna Moreno MD <Odette Pinedo - Last Filed: 07/12/18 01:22> - Resident Resident Name: EdvinGeovanna - ED Attending Attestation I have performed the following: I have examined & evaluated the patient, The case was reviewed & discussed with the resident, I agree w/resident's findings & plan, Exceptions are as noted - Physicial Exam PE: GENERAL: Awake, alert, oriented to person and place. Mildly lethargic- sleeping but arouses to verbal stimuli. Obese. HEAD: No signs of trauma EYES: PERRLA, EOMI, sclera anicteric, conjunctiva clear ENT: Auricles normal inspection, hearing grossly normal, nares patent, oropharynx clear without exudates. Dry mucosa NECK: Normal ROM, supple, no lymphadenopathy, JVD, or masses LUNGS: Distant breath sounds B/L (limited by large body habitus). +Prolonged exp phase. HEART: Regular rate and rhythm, normal S1 and S2, no murmurs, rubs or gallops ABDOMEN: Soft, nontender, normoactive bowel sounds. No guarding, no rebound. No masses EXTREMITIES: Normal range of motion, 3+ pitting edema to BLE. No clubbing or cyanosis. No cords, erythema, or tenderness NEUROLOGICAL: Cranial nerves II through XII grossly intact. Normal speech. Motor and sensation intact. SKIN: Warm, Dry, normal turgor, no rashes or lesions noted. - Medical Decision Making 07/12/18 01:09 Pt with "high" reading on home glucometer. Limited history at present. Appears dehydrated and ill. Will send bloodwork to evaluate for possible DKA, CHF. CXR, UA. Likely admission. <Donna Moreno - Last Filed: 07/12/18 01:52>
[2018-07-12 01:24] LABS: HEMATOCRIT 31.7 % (32.4-45.2); HEMOGLOBIN 10.2 GM/dL (10.7-15.3); MCH 26.9 pg (25.7-33.7); MCHC 32.2 g/dl (32.0-36.0); MEAN CELL VOLUME 83.8 fl (80-96); MEAN PLT VOLUME 9.2 fl (7.5-11.1); PLATELET COUNT 163 K/MM3 (134-434); RBC 3.79 M/mm3 (3.60-5.2); RDW 19.1 % (11.6-15.6); WHITE BLOOD COUNT 14.1 K/mm3 (4.0-10.0)
[2018-07-12 01:52] LABS: N-TERMINAL BNP 731.1 pg/ml (5-450); PHOSPHOROUS 3.2 mg/dL (2.5-4.9)
[2018-07-12 01:56] LABS: INR 1.03 (0.83-1.09); PROTHROMBIN TIME (PATIENT) 12.2 SEC (9.7-13.0)
[2018-07-12 02:29] LABS: VENOUS PC02 50.3 mmHg (38-52); VENOUS PH 7.36 (7.32-7.42); VENOUS PO2 48.3 mmHg (28-48)
[2018-07-12 02:41] LABS: ALK PHOS 65 U/L (45-117); ANION GAP 11 MMOL/L (8-16); BILIRUBIN,TOTAL 0.3 mg/dL (0.2-1); BLOOD UREA NITROGEN 86 mg/dL (7-18); CALCIUM 8.7 mg/dL (8.5-10.1); CHLORIDE 93 mmol/L (98-107); CO2 27 mmol/L (21-32); CREATININE 2.5 mg/dL (0.55-1.3); POTASSIUM 4.2 mmol/L (3.5-5.1); SGOT/AST 9 U/L (15-37); SGPT/ALT 16 U/L (13-61); SODIUM 131 mmol/L (136-145); TOT PROT 6.9 g/dl (6.4-8.2)
[2018-07-12 02:43] LABS: GLUCOSE,RANDOM 438 mg/dL (74-106)
[2018-07-12 03:05] LABS: ACETONE SERUM NEGATIVE (NEGATIVE)
[2018-07-12 04:08] LABS: URINE APPEARANCE SLCLOUDY; URINE BILIRUBIN NEGATIVE (<2.0 mg/dL); URINE COLOR LTYELLOW; URINE GLUCOSE (UA) 3+ (NEGATIVE); URINE KETONE NEGATIVE (NEGATIVE); URINE LEUK ESTERASE NEGATIVE (NEGATIVE); URINE NITRITE NEGATIVE (NEGATIVE); URINE PROTEIN 1+ (NEGATIVE); URINE UROBILINOGEN NEGATIVE mg/dL (0.2-1.0)
[2018-07-12 04:15] LABS: URINE MUCUS RARE
--- NOTE | 2018-07-12 05:09 | PDOC ---
*Physical Exam - Vital Signs Last Vital Signs Temp Pulse Resp BP Pulse Ox 98.1 F 65 19 162/80 98 07/12/18 00:22 07/12/18 03:56 07/12/18 03:56 07/12/18 03:56 07/12/18 03:56 ED Treatment Course - LABORATORY CBC & Chemistry Diagram: 07/12/18 01:10 07/12/18 06:02 - ADDITIONAL ORDERS Additional order review: Laboratory Results 07/12/18 07/12/18 07/12/18 03:50 03:45 01:10 PT with INR INR VBG pH POC VBG pCO2 POC VBG pO2 Mixed VBG HCO3 Sodium Potassium Chloride Carbon Dioxide Anion Gap BUN Creatinine Creat Clearance w eGFR POC Glucometer [phone] Random Glucose Calcium Phosphorus 3.2 Magnesium 2.0 Total Bilirubin AST ALT Alkaline Phosphatase Creatine Kinase 20 L Troponin I < 0.02 B-Natriuretic Peptide 731.1 H Total Protein Albumin Urine Color Ltyellow Urine Appearance Slcloudy Urine pH 5.0 Ur Specific [place] 1.006 L Urine Protein 1+ H Urine Glucose (UA) 3+ H Urine Ketones Negative Urine Blood Negative Urine Nitrite Negative Urine Bilirubin Negative Urine Urobilinogen Negative Ur Leukocyte Esterase Negative Urine WBC (Auto) 5 Urine RBC (Auto) <1 Urine Mucus Rare Acetone, Qual 07/12/18 07/12/18 07/12/18 01:10 01:10 01:05 PT with INR 12.20 INR 1.03 VBG pH 7.36 POC VBG pCO2 50.3 POC VBG pO2 48.3 H D Mixed VBG HCO3 27.6 H Sodium 131 L Potassium 4.2 Chloride 93 L Carbon Dioxide 27 Anion Gap 11 BUN 86 H Creatinine 2.5 H Creat Clearance w eGFR 18.68 POC Glucometer Random Glucose 438 H* Calcium 8.7 Phosphorus Magnesium Total Bilirubin 0.3 AST 9 L ALT 16 Alkaline Phosphatase 65 Creatine Kinase Troponin I B-Natriuretic Peptide Total Protein 6.9 Albumin 3.0 L Urine Color Urine Appearance Urine pH Ur Specific [place] Urine Protein Urine Glucose (UA) Urine Ketones Urine Blood Urine Nitrite Urine Bilirubin Urine Urobilinogen Ur Leukocyte Esterase Urine WBC (Auto) Urine RBC (Auto) Urine Mucus Acetone, Qual Negative L 07/12/18 07/12/18 03:45 01:10 RBC 3.79 MCV 83.8 MCHC 32.2 RDW 19.1 H MPV 9.2 Neutrophils % No Result Required. Lymphocytes % No Result Required. POC Glucometer [phone] - Medications Given in the ED: ED Medications Discontinued Medications Generic Name Dose Route Start Last Admin Trade Name Mojgan PRN Reason Stop Dose Admin Sodium Chloride 2,000 ml 07/12/18 00:52 07/12/18 01:00 Normal Saline - IV 07/12/18 00:53 2,000 ml ONCE ONE Administration Sodium Chloride 1,000 ml 07/12/18 02:55 07/12/18 03:10 Normal Saline - IV 07/12/18 02:56 1,000 ml ONCE ONE Administration Medical Decision Making - Medical Decision Making Patient was a sign out to me, As per prior doctors note " 77 YOF with h/o IDDM, COPD, chronic bronchitis, asthma, morbid obesity, hypothyroidism, chronic kidney disease, CVA (residual right-sided hemiparesis), CAD (s/p cath), HTN, HLD, and anemia, who was BIBEMS for blood sugar measured as "high" on her home glucometer despite taking all her normal medications including insulin. She notes feeling very tired and generally weak, but denies any additional symptoms (no f/c/n/v/d/c, new n/t/w focally, SOB, palpitations, lightheadedness, headache, chest pain, abdominal pain, dysuria, vaginal bleeding or discharge, rash, change in weight, or other symptoms. She believes she has had DKA before but cannot remember for sure. She was admitted here to [facility] (discharged on 07/09/18) for COPD exacerbation, bronchitis. She was discharged on Prednisone 10 mg." I reviewed the labs, urine, and images which were ordered. Patient denies any pain, Denies recent infections. She states nothing is wrong. Her labs are remarkable for elevated glucose to 438 She also has a pre-renal azotemia. CXR shows no infiltrate. This is likely not DKA given no anion gap and unlikely HHNS given relatively lower glucose levels than expected in HHNS. Plan: Correct glucose, hydrate. We gave the patient 2 units of insulin and repeated a BMP. Patient feels well and state she does not want to be in the ER. We will DC patient home. *DC/Admit/Observation/Transfer Diagnosis at time of Disposition: Uncontrolled diabetes mellitus, Prerenal azotemia - Discharge Dispostion Disposition: HOME Condition at time of disposition: Stable Decision to Admit order: Yes - Referrals Referrals: Demarcus Arechiga [Non Staff, Medical] - Peggy Arechiga MD [Non Staff, Medical] - Alvino Dominguez MD [Staff Physician] - - Patient Instructions Printed Discharge Instructions: DI for Hyperglycemia -- Adult, Vegetarian Diet Additional Instructions: You came into the ER with a high glucose reading on your glucometer. we did some tests and determined you don't have DKA or HHNS. We gave you insulin in the ER and your glucose level went down. Please make sure to schedule a follow up APT with your primary car doc in the next 3 days to make sure you are getting better and feeling better. Come back to the ER if you experience SOB, difficulty breathingm get a bad fever, or have any other new or worsening concerns. Thank you for coming to the [facility] ER. We hope you feel better soon! Print Language: UPPER SORBIAN - Post Discharge Activity
[2018-07-12] MEDS ORDERED: INSULIN REGULAR HUMAN 100 UNITS/ML *VIAL IVPUSH ONE (05:32)
[2018-07-12] MEDS ORDERED: INSULIN REGULAR HUMAN 100 UNITS/ML *VIAL ONE (05:45)
[2018-07-12 06:41] LABS: ANION GAP 10 MMOL/L (8-16); BLOOD UREA NITROGEN 80 mg/dL (7-18); CALCIUM 8.9 mg/dL (8.5-10.1); CHLORIDE 98 mmol/L (98-107); CO2 28 mmol/L (21-32); CREATININE 2.2 mg/dL (0.55-1.3); GLUCOSE,RANDOM 271 mg/dL (74-106); SODIUM 135 mmol/L (136-145)
[2018-07-12 06:48] VITALS: BP 167/88; PULSE 63
--- NOTE | 2018-07-12 10:34 | EKG ---
Test Reason : Blood Pressure : / mmHG Vent. Rate : 071 BPM Atrial Rate : 071 BPM P-R Int : 178 ms QRS Dur : 086 ms QT Int : 386 ms P-R-T Axes : 057 001 119 degrees QTc Int : 419 ms NORMAL SINUS RHYTHM T WAVE ABNORMALITY, CONSIDER LATERAL ISCHEMIA BASELINE ARTIFACT ABNORMAL ECG WHEN COMPARED WITH ECG OF 05-JUL-2018 16:22, T WAVE VARIATION Confirmed by IRENE HARDEN MD ([id number]) on 07/12/2018 10:34:27 AM Referred By: Confirmed By:IRENE HARDEN MD
== END 2018-07-12 08:08 | disposition home or self-care (01) ==
LOC: JER 00:06
PROC: 3E033VG Introduction of Insulin into Peripheral Vein, Percutaneous Approach (ICD-10-PCS; principal; 2018-07-12)
DX: E11.65 Type 2 diabetes mellitus with hyperglycemia (principal); Z79.4 Long term (current) use of insulin; I25.10 Atherosclerotic heart disease of native coronary artery without angina pectoris; I13.10 Hypertensive heart and chronic kidney disease without heart failure, with stage 1 through stage 4 chronic kidney disease, or unspecified chronic kidney disease; N18.9 Chronic kidney disease, unspecified; Z95.5 Presence of coronary angioplasty implant and graft; J44.9 Chronic obstructive pulmonary disease, unspecified; J45.909 Unspecified asthma, uncomplicated; E03.9 Hypothyroidism, unspecified; E78.5 Hyperlipidemia, unspecified; D64.9 Anemia, unspecified
CPT/HCPCS: 36415; 71045-TC-FY; 80048; 80053; 81003; 81015; 82009; 82550; 82803; 82962; 83735; 83880; 84100; 84484; 85025; 85610; 87086; 87186; 93005; 93010; 96374; 99285-25

== ENCOUNTER 2018-07-14 20:54 | Inpatient (IN) | payer OTHER ==
[2018-07-14] MEDS ORDERED: SODIUM CHLORIDE 0.9% 1000 ML INFUS.BAG IV STA (21:32)
--- NOTE | 2018-07-14 21:36 | PDOC ---
History of Present Illness - General Chief Complaint: SIRS, Suspected/Possible Stated Complaint: PCP SENT Time Seen by Provider: 07/14/18 21:23 - History of Present Illness Initial Comments: 07/14/18 21:32 77 yo F with h/o HTN, HLD, DM, anemia, COPD, asthma, obesity, chronic kidney disease, CVA (residual right-sided hemiparesis), CVAD (s/p cardiac catheter), with PCP and ID referall for + blood Cx., ESBL, and antibiotic coverage. Urine culture Klebsiella pneuymonia ESBL with sensitivities to multiple Carbapenems including Meropenem, Irtapenem (07/12/18). Patient with no complaints.Recently discharged from alf facility (07/03/18) and lives at home. Recent admission [facility] (discharged on 07/09/18) for COPD exacerbation, bronchitis. Patient denies N/V, F,C, CP, SOB, urinary complaints, hematuria, BPR, abdominal pain, diarrhea, constipation, lightheadedness, weakness, sensory changes. PMHx: as noted above ROS: as noted SHx: Tobacco cessatipon 14 years ago. Allergies: NKDA PMD: Dr. Arechiga. Not on staff. Past History - Past Medical History Allergies/Adverse Reactions: Allergies Allergy/AdvReac Type Severity Reaction Status Date / Time codeine [Codeine] Allergy Severe Hives Verified 07/14/18 21:17 Iodine and Iodide Containing Allergy Verified 07/14/18 21:17 Produc nuts Allergy Mild Uncoded 07/14/18 21:17 Home Medications: Ambulatory Orders Albuterol Sulfate Inhaler - [Ventolin HFA Inhaler -] 1 - 2 inh PO QID #1 inhaler 06/02/18 Aspirin [ASA -] 81 mg PO DAILY 06/02/18 Atorvastatin Ca [Lipitor] 40 mg PO HS 06/02/18 Duloxetine HCl 30 mg PO DAILY 06/02/18 Furosemide [Lasix] 80 mg PO BID 06/02/18 Isosorbide Mononitrate [Imdur -] 60 mg PO DAILY 06/02/18 Mirtazapine 15 mg PO DAILY 06/02/18 Montelukast Sodium [Singulair] 10 mg PO DAILY 06/02/18 Salmeterol/Fluticasone [Advair 100Mcg/50Mcg -] 1 inh IH DAILY #30 inh 06/02/18 Sennosides [Senna] 8.6 mg PO PRN PRN #30 tablet 06/02/18 Insulin (Levemir) [Levemir Vial] 10 unit SQ DAILY #1 vial 06/03/18 Insulin (Levemir) [Levemir Vial] 32 unit SQ HS #1 vial 06/03/18 Insulin Aspart [Novolog] See Protocol SQ AC 06/03/18 Amlodipine Besylate [Norvasc -] 5 mg PO DAILY tablet 06/09/18 Carvedilol [Coreg -] 25 mg PO BID tablet 06/09/18 Levothyroxine [Synthroid -] 88 mcg PO DAILY 30 Days #30 tablet 06/09/18 traMADol HCL [Ultram -] 25 mg PO Q12H PRN 7 Days #14 tablet MDD 2 06/09/18 Anemia: Yes Asthma: Yes Cardiac Disorders: Yes (CARDIAC CATH, HCVD) CVA: Yes (R hemiparesis) COPD: Yes CHF: No DVT: No Diabetes: Yes HTN: Yes Thyroid Disease: Yes - Surgical History Cardiac Surgery: Yes (CARDIAC CATH) - Immunization History Immunization Up to Date: Yes - Suicide/Smoking/Psychosocial Hx Smoking Status: Yes Smoking History: Unknown if ever smoked Have you smoked in the past 12 months: No Number of Cigarettes Smoked Daily: 0 If you are a former smoker, when did you quit?: 15 yrs ago Cigars Per Day: 0 Information on smoking cessation initiated: No Hx Alcohol Use: No Drug/Substance Use Hx: No Substance Use Type: None Hx Substance Use Treatment: No Abd/GI Specific PMHX - Complaint Specific PMHX GERD: No Review of Systems - Review of Systems Comments:: 07/14/18 21:36 GENERAL/CONSTITUTIONAL: No fever or chills. No weakness. HEAD, EYES, EARS, NOSE AND THROAT: No change in vision. No ear pain or discharge. No sore throat. CARDIOVASCULAR: No chest pain or shortness of breath RESPIRATORY: No cough, wheezing, or hemoptysis. GASTROINTESTINAL: No nausea, vomiting, diarrhea or constipation. GENITOURINARY: No dysuria, frequency, or change in urination. MUSCULOSKELETAL: No joint or muscle swelling or pain. No neck or back pain. SKIN: No rash NEUROLOGIC: No headache, vertigo, loss of consciousness, or change in strength/ sensation. ENDOCRINE: No increased thirst. No abnormal weight change HEMATOLOGIC/LYMPHATIC: No anemia, easy bleeding, or history of blood clots. ALLERGIC/IMMUNOLOGIC: No hives or skin allergy. *Physical Exam - Vital Signs Last Vital Signs Temp Pulse Resp BP Pulse Ox 96.8 F L 72 18 116/56 L 95 07/14/18 21:17 07/14/18 21:17 07/14/18 21:17 07/14/18 21:17 07/14/18 21:17 - Physical Exam Comments: 07/14/18 21:36 GENERAL: Awake, alert, and fully oriented, in no acute distress HEAD: No signs of trauma, normocephalic, atraumatic EYES: PERRLA, EOMI, sclera anicteric, conjunctiva clear ENT: Hearing grossly normal, nares patent, oropharynx clear without exudates. Moist mucosa NECK: Normal ROM, supple, no lymphadenopathy, JVD, or masses LUNGS: Slight exp wheezing. No distress, speaks full sentences. HEART: Regular rate and rhythm, normal S1 and S2, no murmurs, rubs or gallops, peripheral pulses normal and equal bilaterally. ABDOMEN: Soft, nontender, normoactive bowel sounds. No guarding, no rebound. No masses EXTREMITIES : Normal inspection, Normal range of motion, no edema. No clubbing or cyanosis. SKIN: Warm, Dry, normal turgor, no rashes or lesions noted ED Treatment Course - LABORATORY CBC & Chemistry Diagram: 07/14/18 21:54 07/14/18 21:54 Medical Decision Making - Medical Decision Making 07/14/18 22:26 77 yo F with h/o HTN, HLD, DM, anemia, COPD, asthma, obesity, chronic kidney disease, CVA (residual right-sided hemiparesis), CVAD (s/p cardiac catheter), with PCP referall for +Blood Cx., ESBL, and antibiotic coverage. VSS, AF. NAD. Physical exam unremarkable. Absent evidence of pyelonephritis. Non toxic appearing, with neg CVA ttp. ED Course: 07/14/18 23:45 WBC: 11.0 LA: 1.2 Trop: Neg UA: 1+ LE, 24 WBC, 1+ Blood, Neg Nitrite. 07/14/18 23:47 EKG: NSR with LVH, and normal interval duration and axis. Absent acute BARI, STD. TWI leads I, AVL. Daughter on phone reports receiving call back today for mother who was found to bacteremic on blood cx. from prior hospitalizations. Admit for IV antibiotics. 07/15/18 02:25 Patient accepted to med/surg. *DC/Admit/Observation/Transfer Diagnosis at time of Disposition: UTI due to extended-spectrum beta lactamase (ESBL) producing Escherichia coli Urinary tract infection Qualifiers: Urinary tract infection type: site unspecified Hematuria presence: without hematuria Qualified Code(s): N39.0 - Urinary tract infection, site not specified - Discharge Dispostion Condition at time of disposition: Stable Decision to Admit order: Yes - Referrals - Patient Instructions Printed Discharge Instructions: DI for Sepsis -- Adult Additional Instructions: Please return to the emergency department with any new or worsening symptoms or concerns. Please follow up with your primary care physician within 72 hours. - Post Discharge Activity - Attestations Physician Attestion: 07/15/18 01:48 I attest to the information provided in this note.
[2018-07-14 22:06] LABS: HEMATOCRIT 29.6 % (32.4-45.2); HEMOGLOBIN 9.6 GM/dL (10.7-15.3); LYMPH % 7.3 % (8-40); MCH 26.9 pg (25.7-33.7); MCHC 32.5 g/dl (32.0-36.0); MEAN CELL VOLUME 82.8 fl (80-96); MEAN PLT VOLUME 8.9 fl (7.5-11.1); MONO % 3.2 % (3.8-10.2); NEUT % 89.5 % (42.8-82.8); PLATELET COUNT 159 K/MM3 (134-434); RBC 3.58 M/mm3 (3.60-5.2); RDW 19.3 % (11.6-15.6)
[2018-07-14 22:11] LABS: VENOUS PC02 47.7 mmHg (38-52); VENOUS PH 7.39 (7.32-7.42); VENOUS PO2 48.2 mmHg (28-48)
[2018-07-14 22:23] LABS: URINE APPEARANCE CLOUDY; URINE BILIRUBIN NEGATIVE (<2.0 mg/dL); URINE COLOR YELLOW; URINE GLUCOSE (UA) NEGATIVE (NEGATIVE); URINE KETONE NEGATIVE (NEGATIVE); URINE LEUK ESTERASE 1+ (NEGATIVE); URINE NITRITE NEGATIVE (NEGATIVE); URINE PROTEIN 1+ (NEGATIVE); URINE UROBILINOGEN NEGATIVE mg/dL (0.2-1.0)
[2018-07-14 22:26] LABS: EPI CELLS MANY /HPF (FEW); URINE BACTERIA RARE /hpf (NONE SEEN); URINE MUCUS RARE
[2018-07-14 22:30] LABS: ACTIVATED PTT 23.3 SECONDS (25.2-36.5); INR 1.03 (0.83-1.09); PROTHROMBIN TIME (PATIENT) 12.1 SEC (9.7-13.0)
[2018-07-14 22:36] LABS: ALBUMIN 2.9 g/dl (3.4-5.0); ALK PHOS 55 U/L (45-117); ANION GAP 7 MMOL/L (8-16); ANISOCYTOSIS 1+; BILIRUBIN,TOTAL 0.4 mg/dL (0.2-1); BLOOD UREA NITROGEN 75 mg/dL (7-18); CALCIUM 8.9 mg/dL (8.5-10.1); CHLORIDE 99 mmol/L (98-107); CO2 29 mmol/L (21-32); CREATININE 1.9 mg/dL (0.55-1.3); GLUCOSE,RANDOM 113 mg/dL (74-106); MACROCYTOSIS 1+; PLATELET ESTIMATE ADEQUATE; SGOT/AST 6 U/L (15-37); SGPT/ALT 17 U/L (13-61); SODIUM 134 mmol/L (136-145); TOT PROT 6.3 g/dl (6.4-8.2)
--- NOTE | 2018-07-15 02:12 | PDOC ---
Attending Attestation - Resident Resident Name: Johnnie Bautista - ED Attending Attestation I have performed the following: I have examined & evaluated the patient, The case was reviewed & discussed with the resident, I agree w/resident's findings & plan, Exceptions are as noted - HPI HPI: 07/15/18 01:37 Ms Nicholson is a 77 yo F who came in to the ER today because her daughter received a call from an ID doctor stating that this patient has (+) blood cultures Daughter does not have the name of this physician chart review revealed last (+) blood cultures in May Pt has no complaints at this time No fevers chills, cough, shortness of breath No abdominal pain No dysuria 07/15/18 02:12 - Physicial Exam PE: 07/15/18 02:13 Pt is awake and alert Answers questions appropriately RRR CTA No abdominal tenderness - Medical Decision Making 07/15/18 02:15 Laboratory Tests 07/12/18 07/14/18 07/14/18 06:02 21:54 21:54 WBC 11.0 H Hgb 9.6 L Hct 29.6 L Plt Count 159 BUN 80 H 75 H Creatinine 2.2 H 1.9 H Troponin I Urine Appearance Urine Ketones Urine Blood Ur Leukocyte Esterase Urine WBC (Auto) Urine RBC (Auto) Ur Epithelial Cells 07/14/18 07/14/18 21:54 22:10 WBC Hgb Hct Plt Count BUN Creatinine Troponin I < 0.02 Urine Appearance Cloudy Urine Ketones Negative Urine Blood 1+ H Ur Leukocyte Esterase 1+ H Urine WBC (Auto) 24 Urine RBC (Auto) 1 Ur Epithelial Cells Many Pt has ESBL Unclear if this was the finding pt daughter was called about Will admit Will give IV abx Clinical Impression: UTI
--- NOTE | 2018-07-15 06:26 | PN ---
Teaching Attending Note Name of Resident: Mark Mclaughlin ATTENDING PHYSICIAN STATEMENT I saw and evaluated the patient. Chart, data reviewed. I reviewed the resident's note and discussed the case with the resident. I agree with the resident's findings and plan as documented. SUBJECTIVE: 77 yo F recently discharged from alf facility (07/03/18) and lives at home. h/o HTN, HLD, DM, anemia, COPD, asthma, obesity, chronic kidney disease , CVA (residual right-sided hemiparesis), CVAD (s/p cardiac catheter), with PCP and ID referral to ER for +blood Cx? Patient states to have completed 2 weeks of IV antibiotics recently for a bacteremia. Currently asymptomatic. + Urine culture from 07/12 for ESBL Klebs. OBJECTIVE: Last Vital Signs Temp Pulse Resp BP Pulse Ox 96.8 F L 74 18 121/68 98 07/14/18 21:17 07/15/18 01:17 07/15/18 01:17 07/15/18 01:17 07/15/18 01:17 general- obese, nontoxic, appears comfortable heent- atraumatic, normocephalic neck- supple cv -s1+s2+rrr chest clear abdomen -obese, nt, bs+ ext -2+ b/l pitting edema in lower ext Abnormal Lab Results 07/14/18 07/14/18 07/14/18 21:54 21:54 21:54 WBC 11.0 H RBC 3.58 L Hgb 9.6 L Hct 29.6 L RDW 19.3 H Absolute Neuts (auto) 9.8 H Neutrophils % 89.5 H Neutrophils % (Manual) 85.0 H Lymphocytes % 7.3 L Lymphocytes % (Manual) 7.0 L D Monocytes % 3.2 L PTT (Actin FS) 23.3 L POC VBG pO2 48.2 H Mixed VBG HCO3 28.8 H Sodium Anion Gap BUN Creatinine Random Glucose AST Total Protein Albumin Ur Specific Parker Urine Protein Urine Blood Ur Leukocyte Esterase 07/14/18 07/14/18 21:54 22:10 WBC RBC Hgb Hct RDW Absolute Neuts (auto) Neutrophils % Neutrophils % (Manual) Lymphocytes % Lymphocytes % (Manual) Monocytes % PTT (Actin FS) POC VBG pO2 Mixed VBG HCO3 Sodium 134 L Anion Gap 7 L BUN 75 H Creatinine 1.9 H Random Glucose 113 H AST 6 L Total Protein 6.3 L Albumin 2.9 L Ur Specific Parker 1.009 L Urine Protein 1+ H Urine Blood 1+ H Ur Leukocyte Esterase 1+ H ASSESSMENT AND PLAN: #77yo woman with ESBL organism colonization sent to ER for uncertain reason as she is asymptomatic. Urine culture + from 07/12 however asymptomatic. Blood and urine cultures send upon arrival here. -observation -call ID physician and PMD for more information regarding any active infections -f/u blood and urine cultures -hold antibiotics for now until outside cultures are obtained -c/w home medications -heparin sc for DVT ppx
[2018-07-15] MEDS ORDERED: HEPARIN NA (PORCINE) 5,000 UNITS/ML 1ML VIAL ONE (06:52)
[2018-07-15] MEDS: HEPARIN NA (PORCINE) 5,000 UNITS/ML 1ML VIAL SQ SCH ×3 (06:54→21:39)
--- NOTE | 2018-07-15 09:09 | HP ---
CHIEF COMPLAINT: " told to go to ED by I.D physician due to Positive blood culture" PCP: Dr Arechiga [place], [place] HISTORY OF PRESENT ILLNESS: Pt is a pleasant 77 y/o lady with a significant past medical history of HTN, HLD , DM, anemia, COPD, asthma, obesity, chronic kidney disease, CVA (residual right -sided hemiparesis), and CVAD (s/p cardiac catheter). Pt presented to ED via ambulance yesterday evening after being informed by her ID physician that her blood cultures were positive? Pt unable to provide more detailed information regarding her bacteremia other than this. Pt endorses that she recently had a PICC line in her arm and was treated for 2 weeks with antibiotics 2/2 a bacteremia . Pt was recently admitted to our hospital on 07/05 for a COPD exacerbation. Pt returned to ED on 07/12 for elevated blood glucose. Currently denies chest pain, shortness of breath, headache, nausea, vomiting, fever, or chills. ER course was notable for: (1) WBC 11 (2) Urine Culture (07/12/18)--> ESBL Klebseila (3) BUN/CR 75/1.9 Recent Travel: PAST MEDICAL HISTORY: COPD with Bipap at night Asthma Obesity CKD CVA with Residual Right Hemiparesis CAD (S/P Cath) HTN DM Anemia (S/P Multiple transfusions in the past) Thyroid disease PAST SURGICAL HISTORY: Cardiac Cath Social History: Smoking: Denies Alcohol: Denies Drugs: Denies Family History: Allergies codeine [Codeine] Allergy (Severe, Verified 07/14/18 21:17) Hives Iodine and Iodide Containing Produc Allergy (Verified 07/14/18 21:17) nuts Allergy (Mild, Uncoded 07/14/18 21:17) HOME MEDICATIONS: Home Medications Medication Instructions Recorded Albuterol Sulfate Inhaler - 1 - 2 inh PO QID #1 inhaler 06/02/18 [Ventolin HFA Inhaler -] Aspirin [ASA -] 81 mg PO DAILY 06/02/18 Atorvastatin Ca [Lipitor] 40 mg PO HS 06/02/18 Duloxetine HCl 30 mg PO DAILY 06/02/18 Furosemide [Lasix] 80 mg PO BID 06/02/18 Isosorbide Mononitrate [Imdur -] 60 mg PO DAILY 06/02/18 Mirtazapine 15 mg PO DAILY 06/02/18 Montelukast Sodium [Singulair] 10 mg PO DAILY 06/02/18 Salmeterol/Fluticasone [Advair 1 inh IH DAILY #30 inh 06/02/18 100Mcg/50Mcg -] Sennosides [Senna] 8.6 mg PO PRN PRN #30 tablet 06/02/18 Insulin (Levemir) [Levemir Vial] 10 unit SQ DAILY #1 vial 06/03/18 Insulin (Levemir) [Levemir Vial] 32 unit SQ HS #1 vial 06/03/18 Insulin Aspart [Novolog] See Protocol SQ AC 06/03/18 Amlodipine Besylate [Norvasc -] 5 mg PO DAILY tablet 06/09/18 Carvedilol [Coreg -] 25 mg PO BID tablet 06/09/18 Levothyroxine [Synthroid -] 88 mcg PO DAILY 30 Days #30 tablet 06/09/18 traMADol HCL [Ultram -] 25 mg PO Q12H PRN 7 Days #14 06/09/18 tablet MDD 2 REVIEW OF SYSTEMS CONSTITUTIONAL: Absent: fever, chills, diaphoresis, generalized weakness, malaise, loss of appetite, weight change HEENT: Absent: rhinorrhea, nasal congestion, throat pain, throat swelling, difficulty swallowing, mouth swelling, ear pain, eye pain, visual changes CARDIOVASCULAR: Absent: chest pain, syncope, palpitations, irregular heart rate, lightheadedness , peripheral edema RESPIRATORY: Absent: cough, shortness of breath, dyspnea with exertion, orthopnea, wheezing, stridor, hemoptysis GASTROINTESTINAL: Absent: abdominal pain, abdominal distension, nausea, vomiting, diarrhea, constipation, melena, hematochezia GENITOURINARY: Absent: dysuria, frequency, urgency, hesitancy, hematuria, flank pain, genital pain MUSCULOSKELETAL: Absent: myalgia, arthralgia, joint swelling, back pain, neck pain SKIN: Absent: rash, itching, pallor HEMATOLOGIC/IMMUNOLOGIC: Absent: easy bleeding, easy bruising, lymphadenopathy, frequent infections ENDOCRINE: Absent: unexplained weight gain, unexplained weight loss, heat intolerance, cold intolerance NEUROLOGIC: Absent: headache, focal weakness or paresthesias, dizziness, unsteady gait, seizure, mental status changes, bladder or bowel incontinence PSYCHIATRIC: Absent: anxiety, depression, suicidal or homicidal ideation, hallucinations. PHYSICAL EXAMINATION Vital Signs - 24 hr 07/14/18 07/15/18 21:17 01:17 Temperature 96.8 F L Pulse Rate 72 Pulse Rate [ 74 Left Radial] Respiratory 18 18 Rate Blood Pressure 116/56 L Blood Pressure 121/68 [Right Arm] O2 Sat by Pulse 95 98 Oximetry (%) GENERAL AAOx3, NAD HEAD: NC/AT EYES: EOMI, PERRLA EARS, NOSE, THROAT: MMM LUNGS: CTA B/L HEART: RRR no MRG S1 S2 ABDOMEN: OBESE, ND NT No HSM MUSCULOSKELETAL: Using wheelchair to ambulate. Ivette lift to get in to wheelchair UPPER EXTREMITIES: 2No CCE LOWER EXTREMITIES: 3+ pitting edema, R lower extremity more edematous than left. SKIN: Dry, scaly skin b/l feet Laboratory Results - last 24 hr 07/14/18 07/14/18 07/14/18 21:50 21:54 21:54 WBC 11.0 H RBC 3.58 L Hgb 9.6 L Hct 29.6 L MCV 82.8 MCH 26.9 MCHC 32.5 RDW 19.3 H Plt Count 159 MPV 8.9 Absolute Neuts (auto) 9.8 H Neutrophils % 89.5 H Neutrophils % (Manual) 85.0 H Lymphocytes % 7.3 L Lymphocytes % (Manual) 7.0 L D Monocytes % 3.2 L Monocytes % (Manual) 8 Eosinophils % 0.0 Basophils % 0.0 Nucleated RBC % 0 Hypochromia 2+ Platelet Estimate Adequate Platelet Comment No clumping noted Anisocytosis 1+ Macrocytosis 1+ Schistocytes 1+ PT with INR 12.10 INR 1.03 PTT (Actin FS) 23.3 L VBG pH POC VBG pCO2 POC VBG pO2 Mixed VBG HCO3 Sodium Potassium Chloride Carbon Dioxide Anion Gap BUN Creatinine Creat Clearance w eGFR Random Glucose Lactic Acid 1.2 Calcium Total Bilirubin AST ALT Alkaline Phosphatase Troponin I Total Protein Albumin Urine Color Urine Appearance Urine pH Ur Specific [place] Urine Protein Urine Glucose (UA) Urine Ketones Urine Blood Urine Nitrite Urine Bilirubin Urine Urobilinogen Ur Leukocyte Esterase Urine WBC (Auto) Urine RBC (Auto) Ur Epithelial Cells Urine Bacteria Urine Mucus 07/14/18 07/14/18 07/14/18 21:54 21:54 21:54 WBC RBC Hgb Hct MCV MCH MCHC RDW Plt Count MPV Absolute Neuts (auto) Neutrophils % Neutrophils % (Manual) Lymphocytes % Lymphocytes % (Manual) Monocytes % Monocytes % (Manual) Eosinophils % Basophils % Nucleated RBC % Hypochromia Platelet Estimate Platelet Comment Anisocytosis Macrocytosis Schistocytes PT with INR INR PTT (Actin FS) VBG pH 7.39 POC VBG pCO2 47.7 POC VBG pO2 48.2 H Mixed VBG HCO3 28.8 H Sodium 134 L Potassium 4.0 Chloride 99 Carbon Dioxide 29 Anion Gap 7 L BUN 75 H Creatinine 1.9 H Creat Clearance w eGFR 25.63 Random Glucose 113 H Lactic Acid Calcium 8.9 Total Bilirubin 0.4 AST 6 L ALT 17 Alkaline Phosphatase 55 Troponin I < 0.02 Total Protein 6.3 L Albumin 2.9 L Urine Color Urine Appearance Urine pH Ur Specific [place] Urine Protein Urine Glucose (UA) Urine Ketones Urine Blood Urine Nitrite Urine Bilirubin Urine Urobilinogen Ur Leukocyte Esterase Urine WBC (Auto) Urine RBC (Auto) Ur Epithelial Cells Urine Bacteria Urine Mucus 07/14/18 22:10 WBC RBC Hgb Hct MCV MCH MCHC RDW Plt Count MPV Absolute Neuts (auto) Neutrophils % Neutrophils % (Manual) Lymphocytes % Lymphocytes % (Manual) Monocytes % Monocytes % (Manual) Eosinophils % Basophils % Nucleated RBC % Hypochromia Platelet Estimate Platelet Comment Anisocytosis Macrocytosis Schistocytes PT with INR INR PTT (Actin FS) VBG pH POC VBG pCO2 POC VBG pO2 Mixed VBG HCO3 Sodium Potassium Chloride Carbon Dioxide Anion Gap BUN Creatinine Creat Clearance w eGFR Random Glucose Lactic Acid Calcium Total Bilirubin AST ALT Alkaline Phosphatase Troponin I Total Protein Albumin Urine Color Yellow Urine Appearance Cloudy Urine pH 5.0 Ur Specific [place] 1.009 L Urine Protein 1+ H Urine Glucose (UA) Negative Urine Ketones Negative Urine Blood 1+ H Urine Nitrite Negative Urine Bilirubin Negative Urine Urobilinogen Negative Ur Leukocyte Esterase 1+ H Urine WBC (Auto) 24 Urine RBC (Auto) 1 Ur Epithelial Cells Many Urine Bacteria Rare Urine Mucus Rare ASSESSMENT/PLAN: Pt is a pleasant 77 y/o lady with a significant past medical history of HTN, HLD , DM, anemia, COPD, asthma, obesity, chronic kidney disease, CVA (residual right -sided hemiparesis), and CVAD (s/p cardiac catheter). Pt presented to ED via ambulance yesterday evening after being informed by her ID physician that her blood cultures were positive? # Bacteremia? -Day team to contact ID physician and PMD for more information regarding any active infections -f/u blood and urine cultures - ID Consult -Hold all Antibiotics until ID physician and PMD are called and more information available on outside blood cultures # HTN, HLD, COPD, Asthma -Day team to reconcile pt medications # DM -Insulin Slding Scale ACHS FEN No Fluids Monitor Electrolytes Diabetic Diet DVT ppx: Heparin SQ TID Dispo: Obs Visit type - Emergency Visit Emergency Visit: Yes ED Registration Date: 07/15/18 Care time: The patient presented to the Emergency Department on the above date and was hospitalized for further evaluation of their emergent condition. - New Patient This patient is new to me today: Yes Date on this admission: 07/15/18 - Critical Care Critical Care patient: No
[2018-07-15 11:35] LABS: BASO % 0.2 % (0-2.0); EOS % 0.7 % (0-4.5); HEMATOCRIT 34.4 % (32.4-45.2); HEMOGLOBIN 10.7 GM/dL (10.7-15.3); LYMPH % 14.2 % (8-40); MEAN CELL VOLUME 83.9 fl (80-96); MEAN PLT VOLUME 9.2 fl (7.5-11.1); NEUT % 79.9 % (42.8-82.8); PLATELET COUNT 159 K/MM3 (134-434); RBC 4.09 M/mm3 (3.60-5.2); RDW 19.2 % (11.6-15.6); WHITE BLOOD COUNT 12.3 K/mm3 (4.0-10.0)
[2018-07-15 11:47] LABS: ANION GAP 9 MMOL/L (8-16); BLOOD UREA NITROGEN 71 mg/dL (7-18); CALCIUM 9.8 mg/dL (8.5-10.1); CHLORIDE 97 mmol/L (98-107); CO2 31 mmol/L (21-32); CREATININE 1.8 mg/dL (0.55-1.3); GLUCOSE,RANDOM 83 mg/dL (74-106); MAGNESIUM 2.2 mg/dL (1.8-2.4); PHOSPHOROUS 4.2 mg/dL (2.5-4.9); POTASSIUM 3.8 mmol/L (3.5-5.1); SODIUM 137 mmol/L (136-145)
--- NOTE | 2018-07-15 11:47 | EKG ---
Test Reason : Blood Pressure : / mmHG Vent. Rate : 061 BPM Atrial Rate : 061 BPM P-R Int : 178 ms QRS Dur : 084 ms QT Int : 408 ms P-R-T Axes : 051 -02 121 degrees QTc Int : 410 ms NORMAL SINUS RHYTHM MINIMAL VOLTAGE CRITERIA FOR LVH, MAY BE NORMAL VARIANT T WAVE ABNORMALITY, CONSIDER LATERAL ISCHEMIA ABNORMAL ECG WHEN COMPARED WITH ECG OF 12-JUL-2018 01:55, NO SIGNIFICANT CHANGE WAS FOUND Confirmed by JACQUI VARGAS, MROA ([id number]) on 07/15/2018 11:46:39 AM Referred By: Confirmed By:MORA OSMAN MD
[2018-07-15 11:49] LABS: INR 0.99 (0.83-1.09); PROTHROMBIN TIME (PATIENT) 11.7 SEC (9.7-13.0)
[2018-07-15 11:52] LABS: ACTIVATED PTT 25.8 SECONDS (25.2-36.5)
[2018-07-15] MEDS ORDERED: traMADol HCL 50 MG TABLET PO PRN (12:43)
[2018-07-15] MEDS ORDERED: SENNOSIDES 8.6MG TABLET (FP) PO PRN (12:43)
--- NOTE | 2018-07-15 13:02 | PN ---
Progress Note (short form) - Note Progress Note: H and P done after midnight; brief update note. Patient seen and examined; no new complaints. Still doing well without any issues. Waiting call back from Infectious Disease. Review of chart shows that she never grew out an ESBL within the pst 2 years. continuing on abx. she is afebrile, hemodynamics stable, cr at baseline. Multiple admits in the past month; was here 07/12 and has ESBL growing from the Ucx. Recent PICC line for bacteremia PE is unchanged from admission with no new focal findings Problems include: 1) ESBL + Urine with ? (+) blood culture. 2) Chronic issues: (including HTN, COPD/Asthma), HLD, DM, CKD III, R-sided hemiparesis from CVA, CAD, poor functional status) Overall for the acute issue she is clinically stable. Reached out to ID and am awaiting call back; no records recieved yet from PCP. Will attempt to get these , though I suspect she may have been called regarding the urine culture. Defer ultimate abx tx to ID. Appreciate their input. Continuing all other home medications for chronic conditions. Visit type - Emergency Visit Emergency Visit: No - New Patient This patient is new to me today: Yes Date on this admission: 07/15/18 - Critical Care Critical Care patient: No
[2018-07-15] MEDS ORDERED: amLODIPine BESYLATE 5 MG TABLET (FP) ONE (13:47)
[2018-07-15] MEDS ORDERED: ASPIRIN 81 MG CHEWABLE TABLETS ONE (13:47)
[2018-07-15] MEDS ORDERED: MONTELUKAST NA 10 MG TABLET ONE (13:47)
[2018-07-15] MEDS: ASPIRIN 81 MG CHEWABLE TABLETS PO SCH (13:52)
[2018-07-15] MEDS: amLODIPine BESYLATE 5 MG TABLET (FP) PO SCH (13:52)
[2018-07-15] MEDS: MONTELUKAST NA 10 MG TABLET PO SCH ×2 (13:52→21:33)
[2018-07-15] MEDS ORDERED: ALBUTEROL SO4 8 GM HFA INHALER IH PRN ×2 (13:55)
[2018-07-15] MEDS ORDERED: ALBUTEROL SO4 8 GM HFA INHALER IH SCH (14:00)
[2018-07-15] MEDS: FLUTICASONE/SALMETEROL 100 MCG/50 MCG DISKUS IH SCH (14:52)
[2018-07-15] MEDS ORDERED: FUROSEMIDE 40 MG TABLET (FP) ONE (14:56)
[2018-07-15] MEDS: FUROSEMIDE 40 MG TABLET (FP) PO SCH (14:56)
--- NOTE | 2018-07-15 17:28 | CON.ID ---
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) ADL: Support Services History of Recent Travel: No Home Medications - Allergies Allergies/Adverse Reactions: Allergies Allergy/AdvReac Type Severity Reaction Status Date / Time codeine [Codeine] Allergy Severe Hives Verified 07/14/18 21:17 Iodine and Iodide Containing Allergy Verified 07/14/18 21:17 Produc nuts Allergy Mild Uncoded 07/14/18 21:17 - Home Medications Home Medications: Ambulatory Orders Albuterol Sulfate Inhaler - [Ventolin HFA Inhaler -] 1 - 2 inh PO QID #1 inhaler 06/02/18 Aspirin [ASA -] 81 mg PO DAILY 06/02/18 Atorvastatin Ca [Lipitor] 40 mg PO HS 06/02/18 Duloxetine HCl 30 mg PO DAILY 06/02/18 Furosemide [Lasix] 80 mg PO BID 06/02/18 Isosorbide Mononitrate [Imdur -] 60 mg PO DAILY 06/02/18 Mirtazapine 15 mg PO DAILY 06/02/18 Montelukast Sodium [Singulair] 10 mg PO DAILY 06/02/18 Salmeterol/Fluticasone [Advair 100Mcg/50Mcg -] 1 inh IH DAILY #30 inh 06/02/18 Sennosides [Senna] 8.6 mg PO PRN PRN #30 tablet 06/02/18 Insulin (Levemir) [Levemir Vial] 10 unit SQ DAILY #1 vial 06/03/18 Insulin (Levemir) [Levemir Vial] 32 unit SQ HS #1 vial 06/03/18 Insulin Aspart [Novolog] See Protocol SQ AC 06/03/18 Amlodipine Besylate [Norvasc -] 5 mg PO DAILY tablet 06/09/18 Carvedilol [Coreg -] 25 mg PO BID tablet 06/09/18 Levothyroxine [Synthroid -] 88 mcg PO DAILY 30 Days #30 tablet 06/09/18 traMADol HCL [Ultram -] 25 mg PO Q12H PRN 7 Days #14 tablet MDD 2 06/09/18 Family Disease History - Family Disease History Family Disease History: CA: Mother (Breast), Other: Father ( in an MVA) Physical Exam Vital Signs: Vital Signs Temperature 99 F 07/15/18 14:00 Pulse Rate 65 07/15/18 14:00 Respiratory Rate 18 07/15/18 14:26 Blood Pressure 130/74 07/15/18 14:00 O2 Sat by Pulse Oximetry (%) 96 07/15/18 14:26 Labs: CBC, BMP 07/15/18 10:56 07/15/18 10:56
[2018-07-15 19:37] VITALS: BMI 38.7
[2018-07-15] MEDS: ERTAPENEM SODIUM 1 GM in SODIUM CHLORIDE 50 ML IVPB SCH (20:01)
[2018-07-15] MEDS ORDERED: INSULIN (NOVOLOG) ASPART 100 UNITS/ML 10ML VIAL ONE (21:05)
[2018-07-15] MEDS: ATORVASTATIN CA 40 MG TABLET (FP) PO SCH (21:33)
[2018-07-15] MEDS: CARVEDILOL 25 MG TABLET (FP) PO SCH (21:33)
[2018-07-15] MEDS: INSULIN (LEVEMIR) 100 UNITS/ML UNITS SQ SCH (21:42)
[2018-07-16] MEDS: LEVOTHYROXINE NA 88 MCG TABLET (FP) PO SCH (06:07)
[2018-07-16] MEDS: FUROSEMIDE 40 MG TABLET (FP) PO SCH ×2 (06:07→14:50)
[2018-07-16] MEDS: INSULIN (LEVEMIR) 100 UNITS/ML UNITS SQ SCH ×2 (06:11→21:18)
[2018-07-16] MEDS: HEPARIN NA (PORCINE) 5,000 UNITS/ML 1ML VIAL SQ SCH ×4 (06:12→21:11)
--- NOTE | 2018-07-16 09:52 | PN ---
Physical Exam: SUBJECTIVE: Patient seen and examined. She complains of suprapubic pain. OBJECTIVE: Vital Signs Period Temp Pulse Resp BP Sys/Mike Pulse Ox Last 24 Hr 97.5 F-99 F 59-76 18-20 130-147/62-99 96-96 GENERAL: The patient is awake, alert, and fully oriented, in no acute distress. LUNGS: Breath sounds equal, clear to auscultation bilaterally, no wheezes, no crackles, no accessory muscle use. HEART: Regular rate and rhythm, S1, S2 without murmur, rub or gallop. ABDOMEN: Soft, (+) mild suprapubic tenderness, nondistended, normoactive bowel sounds, no guarding, no rebound, no hepatosplenomegaly, no masses. EXTREMITIES: 2+ pulses, warm, well-perfused, no edema. Laboratory Results - last 24 hr 07/15/18 07/15/18 07/15/18 10:56 10:56 10:56 WBC 12.3 H RBC 4.09 Hgb 10.7 Hct 34.4 D MCV 83.9 MCH 26.0 MCHC 31.0 L RDW 19.2 H Plt Count 159 MPV 9.2 Absolute Neuts (auto) 9.8 H Neutrophils % 79.9 Lymphocytes % 14.2 D Monocytes % 5.0 Eosinophils % 0.7 D Basophils % 0.2 D Nucleated RBC % 0 PT with INR 11.70 INR 0.99 PTT (Actin FS) 25.8 Sodium 137 Potassium 3.8 Chloride 97 L Carbon Dioxide 31 Anion Gap 9 BUN 71 H Creatinine 1.8 H Creat Clearance w eGFR 27.28 POC Glucometer Random Glucose 83 Calcium 9.8 Phosphorus 4.2 Magnesium 2.2 07/15/18 07/16/18 21:37 06:08 WBC RBC Hgb Hct MCV MCH MCHC RDW Plt Count MPV Absolute Neuts (auto) Neutrophils % Lymphocytes % Monocytes % Eosinophils % Basophils % Nucleated RBC % PT with INR INR PTT (Actin FS) Sodium Potassium Chloride Carbon Dioxide Anion Gap BUN Creatinine Creat Clearance w eGFR POC Glucometer 241 130 Random Glucose Calcium Phosphorus Magnesium Active Medications Generic Name Dose Route Start Last Admin Trade Name Freq PRN Reason Stop Dose Admin Albuterol Sulfate 2 puff 07/15/18 13:55 Ventolin Hfa Inhaler - IH QID PRN SHORTNESS OF BREATH Albuterol Sulfate 1 puff 07/15/18 13:55 Ventolin Hfa Inhaler - IH QID PRN SHORTNESS OF BREATH Amlodipine Besylate 5 mg 07/15/18 13:15 07/15/18 13:52 Norvasc - PO 5 mg DAILY [facility] Administration Aspirin 81 mg 07/15/18 13:15 07/15/18 13:52 Asa - PO 81 mg DAILY [facility] Administration Atorvastatin Calcium 40 mg 07/15/18 22:00 07/15/18 21:33 Lipitor - PO 40 mg HS [facility] Administration Carvedilol 25 mg 07/15/18 22:00 07/15/18 21:33 Coreg - PO 25 mg BID [facility] Administration Duloxetine HCl 30 mg 07/16/18 10:00 Cymbalta - PO DAILY [facility] Furosemide 80 mg 07/15/18 14:00 07/16/18 06:07 Lasix - PO 80 mg BIDLASIX [facility] Administration Heparin Sodium (Porcine) 5,000 unit 07/15/18 06:45 07/16/18 06:12 Heparin - SQ Not Given TID [facility] Ertapenem 1 gm/ Sodium 50 mls @ 100 mls/hr 07/15/18 17:30 07/15/18 20:01 Chloride IVPB 100 mls/hr DAILY [facility] Administration Protocol Insulin Detemir 10 units 07/16/18 07:00 07/16/18 06:11 Levemir Vial SQ 10 units DAILY@0700 [facility] Administration Insulin Detemir 32 units 07/15/18 22:00 07/15/18 21:42 Levemir Vial SQ 32 units HS [facility] Administration Isosorbide Mononitrate 60 mg 07/16/18 10:00 Imdur - PO DAILY [facility] Levothyroxine Sodium 88 mcg 07/16/18 07:00 07/16/18 06:07 Synthroid - PO 88 mcg DAILY@0700 [facility] Administration Mirtazapine 15 mg 07/16/18 22:00 Remeron - PO HS [facility] Montelukast Sodium 10 mg 07/15/18 13:30 07/15/18 21:33 Singulair - PO 10 mg HS [facility] Administration Fluticasone/Salmeterol 1 puff 07/15/18 14:00 07/15/18 14:52 Advair 100mcg/50mcg - IH Not Given DAILY [facility] Senna 1 tab 07/15/18 12:43 Senna - PO DAILY PRN CONSTIPATION Tramadol HCl 25 mg 07/15/18 12:43 Ultram - PO Q12H PRN PAIN LEVEL 7 - 10 ASSESSMENT/PLAN: 1. UTI - Urine culture 07/12 growing ESBL Klebsiella - Urine culture 07/14 growing gram neg rods, group D Strep/Enterococcus - Afebrile, but has leukocytosis - On Invanz (day 2) 2. HTN - Continue Norvasc, Coreg, Lasix 3. Hyperlipidemia - Continue Lipitor 4. COPD/asthma - Stable - Continue Advair, Singulair 5. Type 2 DM - Continue Levemir 6. 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 CAD - Continue aspirin, Lipitor, Coreg 8. Stage 4 CKD - Stable 9. Anemia - Hemoglobin stable 10. Obesity with BMI 38.8 Visit type - Emergency Visit Emergency Visit: Yes ED Registration Date: 07/15/18 Care time: The patient presented to the Emergency Department on the above date and was hospitalized for further evaluation of their emergent condition. - New Patient This patient is new to me today: Yes Date on this admission: 07/16/18 - Critical Care Critical Care patient: No - Discharge Referral Referred to [facility] Med P.C.: No
[2018-07-16] MEDS: ERTAPENEM SODIUM 1 GM in SODIUM CHLORIDE 50 ML IVPB SCH (10:53)
[2018-07-16] MEDS: ISOSORBIDE MONONITRATE 60 MG TAB.SR.24H (FP) PO SCH (10:54)
[2018-07-16] MEDS: amLODIPine BESYLATE 5 MG TABLET (FP) PO SCH (10:54)
[2018-07-16] MEDS: ASPIRIN 81 MG CHEWABLE TABLETS PO SCH (10:54)
[2018-07-16] MEDS: DULoxetine HCL 30 MG CAPSULE.DR (FP) PO SCH (10:54)
[2018-07-16] MEDS: CARVEDILOL 25 MG TABLET (FP) PO SCH ×2 (10:54→21:15)
--- NOTE | 2018-07-16 11:23 | PN ---
Progress Note, Physician History of Present Illness: patient stable doig well was sed for it seems blood cx positve patients lood cx are negative but urie cxc are positive - Current Medication List Current Medications: Active Medications Albuterol Sulfate (Ventolin Hfa Inhaler -) 2 puff IH QID PRN PRN Reason: SHORTNESS OF BREATH Albuterol Sulfate (Ventolin Hfa Inhaler -) 1 puff IH QID PRN PRN Reason: SHORTNESS OF BREATH Amlodipine Besylate (Norvasc -) 5 mg PO DAILY [facility] Last Admin: 07/16/18 10:54 Dose: 5 mg Aspirin (Asa -) 81 mg PO DAILY [facility] Last Admin: 07/16/18 10:54 Dose: 81 mg Atorvastatin Calcium (Lipitor -) 40 mg PO HS [facility] Last Admin: 07/15/18 21:33 Dose: 40 mg Carvedilol (Coreg -) 25 mg PO BID [facility] Last Admin: 07/16/18 10:54 Dose: 25 mg Duloxetine HCl (Cymbalta -) 30 mg PO DAILY [facility] Last Admin: 07/16/18 10:54 Dose: 30 mg Furosemide (Lasix -) 80 mg PO BIDLASIX [facility] Last Admin: 07/16/18 06:07 Dose: 80 mg Heparin Sodium (Porcine) (Heparin -) 5,000 unit SQ TID [facility] Last Admin: 07/16/18 06:12 Dose: Not Given Ertapenem 1 gm/ Sodium (Chloride) 50 mls @ 100 mls/hr IVPB DAILY [facility]; Protocol Last Admin: 07/16/18 10:53 Dose: 100 mls/hr Insulin Detemir (Levemir Vial) 10 units SQ DAILY@0700 [facility] Last Admin: 07/16/18 06:11 Dose: 10 units Insulin Detemir (Levemir Vial) 32 units SQ HS [facility] Last Admin: 07/15/18 21:42 Dose: 32 units Isosorbide Mononitrate (Imdur -) 60 mg PO DAILY [facility] Last Admin: 07/16/18 10:54 Dose: 60 mg Levothyroxine Sodium (Synthroid -) 88 mcg PO DAILY@0700 [facility] Last Admin: 07/16/18 06:07 Dose: 88 mcg Mirtazapine (Remeron -) 15 mg PO [facility] Montelukast Sodium (Singulair -) 10 mg PO HS [facility] Last Admin: 10/18/18 21:33 Dose: 10 mg Fluticasone/Salmeterol (Advair 100mcg/50mcg -) 1 puff IH DAILY [facility] Last Admin: 07/15/18 14:52 Dose: Not Given Senna (Senna -) 1 tab PO DAILY PRN PRN Reason: CONSTIPATION Tramadol HCl (Ultram -) 25 mg PO Q12H PRN PRN Reason: PAIN LEVEL 7 - 10 Last Admin: 07/16/18 10:58 Dose: 25 mg - Objective Vital Signs: Vital Signs Temperature 97.9 F 07/16/18 09:16 Pulse Rate 76 07/16/18 09:16 Respiratory Rate 20 07/16/18 09:16 Blood Pressure 139/64 07/16/18 09:16 O2 Sat by Pulse Oximetry (%) 96 07/15/18 21:00 Constitutional: Yes: No Distress, Calm, Obese Cardiovascular: Yes: Regular Rate and Rhythm Respiratory: Yes: Regular, CTA Bilaterally Gastrointestinal: Yes: Normal Bowel Sounds, Soft Musculoskeletal: Yes: WNL Extremities: Yes: WNL Neurological: Yes: Alert, Oriented Psychiatric: Yes: Alert, Oriented Labs: CBC, BMP 07/15/18 10:56 07/15/18 10:56 INR, PTT INR 0.99 (0.83-1.09) 07/15/18 10:56 Assessment/Plan Assessment/Plan Problem List - Problems (1) Diabetes Code(s): E11.9 - TYPE 2 DIABETES MELLITUS WITHOUT COMPLICATIONS (2) HTN (hypertension) Code(s): I10 - ESSENTIAL (PRIMARY) HYPERTENSION (3) CVA (cerebral vascular accident) Code(s): I63.9 - CEREBRAL INFARCTION, UNSPECIFIED 4 uti plan will start patient on zosyn patient has history of esbl uti will await for cx reports then will decide on the abx
[2018-07-16] MEDS ORDERED: PIPERACILLIN/TAZOBACTAM 2.25 GM VIAL IVPB ONE ×3 (13:08→23:57)
[2018-07-16] MEDS ORDERED: DEXTROSE 5%-WATER - 50 ML IVPB ONE ×3 (13:09→23:57)
[2018-07-16] MEDS ORDERED: PT OWN MED DRAWER 7, Y5N ONE (13:12)
[2018-07-16] MEDS: FLUTICASONE/SALMETEROL 100 MCG/50 MCG DISKUS IH SCH (13:16)
[2018-07-16] MEDS: PIPERACILLIN/TAZOB 2.25 GM 2.25 GM in DEXTROSE 5%-WATER - 50 ML IVPB SCH ×2 (13:16→17:51)
[2018-07-16] MEDS: MIRTAZAPINE 15 MG TABLET (FP) PO SCH (21:14)
[2018-07-16] MEDS: ATORVASTATIN CA 40 MG TABLET (FP) PO SCH (21:14)
[2018-07-16] MEDS: MONTELUKAST NA 10 MG TABLET PO SCH (21:15)
[2018-07-17] MEDS: PIPERACILLIN/TAZOB 2.25 GM 2.25 GM in DEXTROSE 5%-WATER - 50 ML IVPB SCH ×3 (01:40→18:41)
[2018-07-17] MEDS: FUROSEMIDE 40 MG TABLET (FP) PO SCH ×2 (06:24→15:32)
[2018-07-17] MEDS: LEVOTHYROXINE NA 88 MCG TABLET (FP) PO SCH (06:24)
[2018-07-17] MEDS: HEPARIN NA (PORCINE) 5,000 UNITS/ML 1ML VIAL SQ SCH ×4 (06:25→22:35)
[2018-07-17] MEDS: INSULIN (LEVEMIR) 100 UNITS/ML UNITS SQ SCH ×2 (06:27→22:29)
[2018-07-17 08:42] LABS: BASO % 0.1 % (0-2.0); EOS % 2.4 % (0-4.5); HEMATOCRIT 29.3 % (32.4-45.2); HEMOGLOBIN 9.3 GM/dL (10.7-15.3); LYMPH % 12.8 % (8-40); MCH 26.3 pg (25.7-33.7); MCHC 31.8 g/dl (32.0-36.0); MEAN CELL VOLUME 82.6 fl (80-96); MEAN PLT VOLUME 9.1 fl (7.5-11.1); MONO % 6.2 % (3.8-10.2); NEUT % 78.5 % (42.8-82.8); PLATELET COUNT 134 K/MM3 (134-434); RBC 3.55 M/mm3 (3.60-5.2); RDW 18.7 % (11.6-15.6); WHITE BLOOD COUNT 10.1 K/mm3 (4.0-10.0)
[2018-07-17] MEDS ORDERED: PT OWN MED DRAWER 7, Y5N ONE (09:06)
[2018-07-17 09:11] LABS: ANION GAP 10 MMOL/L (8-16); BLOOD UREA NITROGEN 76 mg/dL (7-18); CALCIUM 8.3 mg/dL (8.5-10.1); CHLORIDE 95 mmol/L (98-107); CO2 30 mmol/L (21-32); POTASSIUM 3.7 mmol/L (3.5-5.1); SODIUM 134 mmol/L (136-145)
[2018-07-17] MEDS ORDERED: PIPERACILLIN/TAZOBACTAM 2.25 GM VIAL IVPB ONE ×2 (10:23→17:54)
[2018-07-17] MEDS ORDERED: DEXTROSE 5%-WATER - 50 ML IVPB ONE ×2 (10:24→17:55)
[2018-07-17] MEDS: DULoxetine HCL 30 MG CAPSULE.DR (FP) PO SCH (10:32)
[2018-07-17] MEDS: CARVEDILOL 25 MG TABLET (FP) PO SCH ×2 (10:32→22:29)
[2018-07-17] MEDS: amLODIPine BESYLATE 5 MG TABLET (FP) PO SCH (10:32)
[2018-07-17] MEDS: ASPIRIN 81 MG CHEWABLE TABLETS PO SCH (10:32)
[2018-07-17] MEDS: ISOSORBIDE MONONITRATE 60 MG TAB.SR.24H (FP) PO SCH (10:32)
[2018-07-17] MEDS: FLUTICASONE/SALMETEROL 100 MCG/50 MCG DISKUS IH SCH (10:33)
--- NOTE | 2018-07-17 10:54 | PN ---
Progress Note, Physician History of Present Illness: patient stable doing well no new issues - Current Medication List Current Medications: Active Medications Albuterol Sulfate (Ventolin Hfa Inhaler -) 2 puff IH QID PRN PRN Reason: SHORTNESS OF BREATH Albuterol Sulfate (Ventolin Hfa Inhaler -) 1 puff IH QID PRN PRN Reason: SHORTNESS OF BREATH Amlodipine Besylate (Norvasc -) 5 mg PO DAILY [facility] Last Admin: 07/17/18 10:32 Dose: 5 mg Aspirin (Asa -) 81 mg PO DAILY [facility] Last Admin: 07/17/18 10:32 Dose: 81 mg Atorvastatin Calcium (Lipitor -) 40 mg PO HS [facility] Last Admin: 07/16/18 21:14 Dose: 40 mg Carvedilol (Coreg -) 25 mg PO BID [facility] Last Admin: 07/17/18 10:32 Dose: 25 mg Duloxetine HCl (Cymbalta -) 30 mg PO DAILY [facility] Last Admin: 07/17/18 10:32 Dose: 30 mg Furosemide (Lasix -) 80 mg PO BIDLASIX [facility] Last Admin: 07/17/18 06:24 Dose: 80 mg Heparin Sodium (Porcine) (Heparin -) 5,000 unit SQ TID [facility] Last Admin: 07/17/18 06:25 Dose: Not Given Piperacillin Sod/Tazobactam (Sod 2.25 gm/ Dextrose) 50 mls @ 100 mls/hr IVPB Q8H-IV [facility]; Protocol Last Admin: 07/17/18 10:30 Dose: 100 mls/hr Insulin Detemir (Levemir Vial) 10 units SQ DAILY@0700 [facility] Last Admin: 07/17/18 06:27 Dose: Not Given Insulin Detemir (Levemir Vial) 32 units SQ [facility] Last Admin: 07/16/18 21:18 Dose: 32 units Isosorbide Mononitrate (Imdur -) 60 mg PO DAILY [facility] Last Admin: 07/17/18 10:32 Dose: 60 mg Levothyroxine Sodium (Synthroid -) 88 mcg PO DAILY@0700 [facility] Last Admin: 07/17/18 06:24 Dose: 88 mcg Mirtazapine (Remeron -) 15 mg PO [facility] Last Admin: 07/16/18 21:14 Dose: 15 mg Montelukast Sodium (Singulair -) 10 mg PO HS [facility] Last Admin: 07/16/18 21:15 Dose: 10 mg Fluticasone/Salmeterol (Advair 100mcg/50mcg -) 1 puff IH DAILY [facility] Last Admin: 07/17/18 10:33 Dose: 1 puff Senna (Senna -) 1 tab PO DAILY PRN PRN Reason: CONSTIPATION Tramadol HCl (Ultram -) 25 mg PO Q12H PRN PRN Reason: PAIN LEVEL 7 - 10 Last Admin: 07/16/18 10:58 Dose: 25 mg - Objective Vital Signs: Vital Signs Temperature 98.6 F 07/17/18 10:12 Pulse Rate 81 07/17/18 10:12 Respiratory Rate 18 07/17/18 10:12 Blood Pressure 137/65 07/17/18 10:12 O2 Sat by Pulse Oximetry (%) 97 07/16/18 21:00 Constitutional: Yes: No Distress, Calm Cardiovascular: Yes: Regular Rate and Rhythm Respiratory: Yes: Regular, CTA Bilaterally Gastrointestinal: Yes: Normal Bowel Sounds, Soft Musculoskeletal: Yes: WNL Extremities: Yes: WNL Labs: CBC, BMP 07/17/18 07:00 07/17/18 07:00 INR, PTT INR 0.99 (0.83-1.09) 07/15/18 10:56 Assessment/Plan Assessment/Plan Problem List - Problems (1) Diabetes Code(s): E11.9 - TYPE 2 DIABETES MELLITUS WITHOUT COMPLICATIONS (2) HTN (hypertension) Code(s): I10 - ESSENTIAL (PRIMARY) HYPERTENSION (3) CVA (cerebral vascular accident) Code(s): I63.9 - CEREBRAL INFARCTION, UNSPECIFIED 4 uti plan continue zosyn patient has history of esbl uti will await for cx reports then will decide on the abx
--- NOTE | 2018-07-17 11:33 | PN ---
Physical Exam: SUBJECTIVE: Patient seen and examined. She is comfortable laying in bed. She denies pain. OBJECTIVE: Vital Signs Period Temp Pulse Resp BP Sys/Mike Pulse Ox Last 24 Hr 97.7 F-99.1 F 72-81 18-20 110-137/58-66 97 GENERAL: The patient is awake, alert, and fully oriented, in no acute distress. LUNGS: Breath sounds equal, clear to auscultation bilaterally, no wheezes, no crackles, no accessory muscle use. HEART: Regular rate and rhythm, S1, S2 without murmur, rub or gallop. ABDOMEN: Obese, soft, (+) mild suprapubic tenderness, nondistended, normoactive bowel sounds, no guarding, no rebound, no hepatosplenomegaly, no masses. EXTREMITIES: Bilateral leg edema R>L Laboratory Results - last 24 hr 07/16/18 07/16/18 07/17/18 17:51 21:16 06:26 WBC RBC Hgb Hct MCV MCH MCHC RDW Plt Count MPV Absolute Neuts (auto) Neutrophils % Lymphocytes % Monocytes % Eosinophils % Basophils % Nucleated RBC % Sodium Potassium Chloride Carbon Dioxide Anion Gap BUN Creatinine Creat Clearance w eGFR POC Glucometer 109 128 62 Calcium 07/17/18 07/17/18 07:00 07:00 WBC 10.1 H RBC 3.55 L Hgb 9.3 L Hct 29.3 L MCV 82.6 MCH 26.3 MCHC 31.8 L RDW 18.7 H Plt Count 134 MPV 9.1 Absolute Neuts (auto) 7.9 Neutrophils % 78.5 Lymphocytes % 12.8 Monocytes % 6.2 Eosinophils % 2.4 D Basophils % 0.1 Nucleated RBC % 0 Sodium 134 L Potassium 3.7 Chloride 95 L Carbon Dioxide 30 Anion Gap 10 BUN 76 H Creatinine 2.0 H Creat Clearance w eGFR 24.16 POC Glucometer Calcium 8.3 L Active Medications Generic Name Dose Route Start Last Admin Trade Name Freq PRN Reason Stop Dose Admin Albuterol Sulfate 2 puff 07/15/18 13:55 Ventolin Hfa Inhaler - IH QID PRN SHORTNESS OF BREATH Albuterol Sulfate 1 puff 07/15/18 13:55 Ventolin Hfa Inhaler - IH QID PRN SHORTNESS OF BREATH Amlodipine Besylate 5 mg 07/15/18 13:15 07/17/18 10:32 Norvasc - PO 5 mg DAILY [facility] Administration Aspirin 81 mg 07/15/18 13:15 07/17/18 10:32 Asa - PO 81 mg DAILY [facility] Administration Atorvastatin Calcium 40 mg 07/15/18 22:00 07/16/18 21:14 Lipitor - PO 40 mg HS [facility] Administration Carvedilol 25 mg 07/15/18 22:00 07/17/18 10:32 Coreg - PO 25 mg BID [facility] Administration Duloxetine HCl 30 mg 07/16/18 10:00 07/17/18 10:32 Cymbalta - PO 30 mg DAILY [facility] Administration Furosemide 80 mg 07/15/18 14:00 07/17/18 06:24 Lasix - PO 80 mg BIDLASIX [facility] Administration Heparin Sodium (Porcine) 5,000 unit 07/15/18 06:45 07/17/18 06:25 Heparin - SQ Not Given TID [facility] Piperacillin Sod/Tazobactam 50 mls @ 100 mls/hr 07/16/18 12:00 07/17/18 10:30 Sod 2.25 gm/ Dextrose IVPB 100 mls/hr Q8H-IV [facility] Administration Protocol Insulin Detemir 10 units 07/16/18 07:00 07/17/18 06:27 Levemir Vial SQ Not Given DAILY@0700 [facility] Insulin Detemir 32 units 07/15/18 22:00 07/16/18 21:18 Levemir Vial SQ 32 units HS [facility] Administration Isosorbide Mononitrate 60 mg 07/16/18 10:00 07/17/18 10:32 Imdur - PO 60 mg DAILY [facility] Administration Levothyroxine Sodium 88 mcg 07/16/18 07:00 07/17/18 06:24 Synthroid - PO 88 mcg DAILY@0700 [facility] Administration Mirtazapine 15 mg 07/16/18 22:00 07/16/18 21:14 Remeron - PO 15 mg HS [facility] Administration Montelukast Sodium 10 mg 07/15/18 13:30 07/16/18 21:15 Singulair - PO 10 mg HS [facility] Administration Nystatin 1 applic 07/17/18 11:15 Nystop Powder - TP DAILY [facility] Fluticasone/Salmeterol 1 puff 07/15/18 14:00 07/17/18 10:33 Advair 100mcg/50mcg - IH 1 puff DAILY [facility] Administration Senna 1 tab 07/15/18 12:43 Senna - PO DAILY PRN CONSTIPATION Tramadol HCl 25 mg 07/15/18 12:43 07/16/18 10:58 Ultram - PO 25 mg Q12H PRN Administration PAIN LEVEL 7 - 10 ASSESSMENT/PLAN: This is a 77 year old woman with a history of HTN, hyperlipidemia, asthma, COPD , type 2 DM, CVA with right hemiparesis, CKD, anemia, and obesity who presented to the ED after she was found to have a ESBL in a urine culture. 1. UTI - Urine culture 07/12 growing ESBL Klebsiella - Urine culture 07/14 growing gram neg rods, group D Strep/Enterococcus - Afebrile - Leukocytosis improving - Invanz changed to Zosyn 2. HTN - Continue Norvasc, Coreg, Lasix 3. Hyperlipidemia - Continue Lipitor 4. COPD/asthma - Stable - Continue Advair, Singulair 5. Type 2 DM - Continue Levemir 6. 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 CAD - Continue aspirin, Lipitor, Coreg 8. Stage 4 CKD - Stable 9. Anemia - Hemoglobin stable 10. Obesity with BMI 38.8 Visit type - Emergency Visit Emergency Visit: Yes ED Registration Date: 07/15/18 Care time: The patient presented to the Emergency Department on the above date and was hospitalized for further evaluation of their emergent condition. - New Patient This patient is new to me today: No - Critical Care Critical Care patient: No - Discharge Referral Referred to [facility] Med P.C.: No
[2018-07-17 12:00] LABS: GLUCOSE,RANDOM 39 mg/dL (74-106)
[2018-07-17 13:12] LABS: PLATELET ESTIMATE ADEQUATE
[2018-07-17] MEDS: NYSTATIN POWDER 100,000 UNITS/GM - 15 GM TOPICAL POWDER TP SCH (15:35)
[2018-07-17] MEDS: ATORVASTATIN CA 40 MG TABLET (FP) PO SCH (22:30)
[2018-07-17] MEDS: MIRTAZAPINE 15 MG TABLET (FP) PO SCH (22:30)
[2018-07-17] MEDS: MONTELUKAST NA 10 MG TABLET PO SCH (22:30)
[2018-07-18] MEDS ORDERED: PIPERACILLIN/TAZOBACTAM 2.25 GM VIAL IVPB ONE ×2 (01:03→10:49)
[2018-07-18] MEDS ORDERED: DEXTROSE 5%-WATER - 50 ML IVPB ONE ×2 (01:04→10:49)
[2018-07-18] MEDS: PIPERACILLIN/TAZOB 2.25 GM 2.25 GM in DEXTROSE 5%-WATER - 50 ML IVPB SCH ×2 (01:34→10:53)
[2018-07-18] MEDS: LEVOTHYROXINE NA 88 MCG TABLET (FP) PO SCH (06:31)
[2018-07-18] MEDS: FUROSEMIDE 40 MG TABLET (FP) PO SCH ×2 (06:31→14:02)
[2018-07-18] MEDS: HEPARIN NA (PORCINE) 5,000 UNITS/ML 1ML VIAL SQ SCH ×3 (06:31→21:17)
[2018-07-18] MEDS: INSULIN (LEVEMIR) 100 UNITS/ML UNITS SQ SCH ×2 (06:35→22:34)
[2018-07-18] MEDS: ASPIRIN 81 MG CHEWABLE TABLETS PO SCH (10:55)
[2018-07-18] MEDS: DULoxetine HCL 30 MG CAPSULE.DR (FP) PO SCH (10:56)
[2018-07-18] MEDS: NYSTATIN POWDER 100,000 UNITS/GM - 15 GM TOPICAL POWDER TP SCH (10:56)
[2018-07-18] MEDS: amLODIPine BESYLATE 5 MG TABLET (FP) PO SCH (10:56)
[2018-07-18] MEDS: CARVEDILOL 25 MG TABLET (FP) PO SCH ×2 (10:56→21:54)
[2018-07-18] MEDS: ISOSORBIDE MONONITRATE 60 MG TAB.SR.24H (FP) PO SCH (10:56)
[2018-07-18] MEDS: FLUTICASONE/SALMETEROL 100 MCG/50 MCG DISKUS IH SCH (10:57)
--- NOTE | 2018-07-18 11:24 | PN ---
Physical Exam: SUBJECTIVE: Patient seen and examined. Complaining of itching left lower abdomen below pannus. Denies dysuria, urgency. OBJECTIVE: Vital Signs Period Temp Pulse Resp BP Sys/Mike Pulse Ox Last 24 Hr 97.9 F-98.7 F 71-79 18-20 123-153/62-80 97 GENERAL: The patient is awake, alert, and fully oriented, in no acute distress. LUNGS: CTA HEART: Regular rate and rhythm, S1, S2 ABDOMEN: Obese, soft, nontender, erythematous rash below pannus LOWER EXTREMITIES: LEFT: 2+ edema; RIGHT: 4+ tense pitting edema from toes to knee NEUROLOGICAL: Cranial nerves II through XII grossly intact. Laboratory Results - last 24 hr 07/17/18 07/17/18 07/17/18 07:00 07:00 11:28 Total Counted 100 Neutrophils % (Manual) 95.0 H Band Neutrophils % 1.0 Lymphocytes % (Manual) 3.0 L D Monocytes % (Manual) 1 L D Platelet Estimate Adequate Platelet Comment Rare giant plts POC Glucometer 100 Random Glucose 39 L* 07/17/18 07/17/18 07/17/18 12:06 17:48 22:26 Total Counted Neutrophils % (Manual) Band Neutrophils % Lymphocytes % (Manual) Monocytes % (Manual) Platelet Estimate Platelet Comment POC Glucometer 92 165 162 Random Glucose 07/18/18 06:34 Total Counted Neutrophils % (Manual) Band Neutrophils % Lymphocytes % (Manual) Monocytes % (Manual) Platelet Estimate Platelet Comment POC Glucometer 75 Random Glucose Active Medications Generic Name Dose Route Start Last Admin Trade Name Freq PRN Reason Stop Dose Admin Albuterol Sulfate 1 amp 07/17/18 11:35 Ventolin 0.083% Nebulizer Soln - NEB Q4H PRN SHORT OF BREATH/WHEEZING Amlodipine Besylate 5 mg 07/15/18 13:15 07/18/18 10:56 Norvasc - PO 5 mg DAILY [facility] Administration Aspirin 81 mg 07/15/18 13:15 07/18/18 10:55 Asa - PO 81 mg DAILY [facility] Administration Atorvastatin Calcium 40 mg 07/15/18 22:00 07/17/18 22:30 Lipitor - PO 40 mg HS [facility] Administration Carvedilol 25 mg 07/15/18 22:00 07/18/18 10:56 Coreg - PO 25 mg BID [facility] Administration Duloxetine HCl 30 mg 07/16/18 10:00 07/18/18 10:56 Cymbalta - PO 30 mg DAILY [facility] Administration Furosemide 80 mg 07/15/18 14:00 07/18/18 06:31 Lasix - PO 80 mg BIDLASIX [facility] Administration Heparin Sodium (Porcine) 5,000 unit 07/15/18 06:45 07/18/18 06:31 Heparin - SQ 5,000 unit TID [facility] Administration Piperacillin Sod/Tazobactam 50 mls @ 100 mls/hr 07/16/18 12:00 07/18/18 10:53 Sod 2.25 gm/ Dextrose IVPB 100 mls/hr Q8H-IV [facility] Administration Protocol Insulin Detemir 10 units 07/16/18 07:00 07/18/18 06:35 Levemir Vial SQ Not Given DAILY@0700 [facility] Insulin Detemir 32 units 07/15/18 22:00 07/17/18 22:29 Levemir Vial SQ 32 units HS [facility] Administration Isosorbide Mononitrate 60 mg 07/16/18 10:00 07/18/18 10:56 Imdur - PO 60 mg DAILY [facility] Administration Levothyroxine Sodium 88 mcg 07/16/18 07:00 07/18/18 06:31 Synthroid - PO 88 mcg DAILY@0700 [facility] Administration Mirtazapine 15 mg 07/16/18 22:00 07/17/18 22:30 Remeron - PO 15 mg HS [facility] Administration Montelukast Sodium 10 mg 07/15/18 13:30 07/17/18 22:30 Singulair - PO 10 mg HS [facility] Administration Nystatin 1 applic 07/17/18 12:00 07/18/18 10:56 Nystop Powder - TP 1 applic DAILY [facility] Administration Fluticasone/Salmeterol 1 puff 07/15/18 14:00 07/18/18 10:57 Advair 100mcg/50mcg - IH 1 puff DAILY [facility] Administration Senna 1 tab 07/15/18 12:43 Senna - PO DAILY PRN CONSTIPATION Tramadol HCl 25 mg 07/15/18 12:43 07/16/18 10:58 Ultram - PO 25 mg Q12H PRN Administration PAIN LEVEL 7 - 10 ASSESSMENT/PLAN: This is a 77 year old woman with a history of HTN, HLD, asthma, COPD, type 2 DM , CVA with right hemiparesis, CKD, anemia, and obesity who presented to the ED after she was found to have a ESBL in a urine culture. 1. UTI - Urine culture 07/12 growing ESBL Klebsiella - Urine culture 07/14 growing ESBL Klebsiella and Group D Strep/Enterococcus - Afebrile, leukocytosis resolved - Invanz changed to Zosyn (day #2) 2. HTN - Continue Norvasc, Coreg, Lasix 3. Hyperlipidemia - Continue Lipitor 4. COPD/asthma - Stable - Continue Advair, Singulair 5. Type 2 DM - Continue Levemir - Novolog sliding scale coverage 6. 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 CAD - Continue aspirin, Lipitor, Coreg 8. Stage 4 CKD - Cr 2.0 which is baseine 9. Anemia - Hemoglobin stable 10. Obesity with BMI 38.8 11. Lower extremity edema --continue lasix PO 80mg BID 12. Hypothyroidism --continue levothyroxine FEN Fluids: PO intake adequate Electrolytes: replete as indicated Nutrition: diabetic, low sodium DVT prophylaxis: subq heparin Physical therapy Dispo: continues to require inpatient care. Full code. Visit type - Emergency Visit Emergency Visit: Yes ED Registration Date: 07/15/18 Care time: The patient presented to the Emergency Department on the above date and was hospitalized for further evaluation of their emergent condition. - New Patient This patient is new to me today: Yes Date on this admission: 07/18/18 - Critical Care Critical Care patient: No
--- NOTE | 2018-07-18 12:41 | PN ---
Progress Note, Physician History of Present Illness: patient stable no new issues weak - Current Medication List Current Medications: Active Medications Albuterol Sulfate (Ventolin 0.083% Nebulizer Soln -) 1 amp NEB Q4H PRN PRN Reason: SHORT OF BREATH/WHEEZING Amlodipine Besylate (Norvasc -) 5 mg PO DAILY [facility] Last Admin: 07/18/18 10:56 Dose: 5 mg Aspirin (Asa -) 81 mg PO DAILY [facility] Last Admin: 07/18/18 10:55 Dose: 81 mg Atorvastatin Calcium (Lipitor -) 40 mg PO HS [facility] Last Admin: 07/17/18 22:30 Dose: 40 mg Carvedilol (Coreg -) 25 mg PO BID [facility] Last Admin: 07/18/18 10:56 Dose: 25 mg Duloxetine HCl (Cymbalta -) 30 mg PO DAILY [facility] Last Admin: 07/18/18 10:56 Dose: 30 mg Furosemide (Lasix -) 80 mg PO BIDLASIX [facility] Last Admin: 07/18/18 06:31 Dose: 80 mg Heparin Sodium (Porcine) (Heparin -) 5,000 unit SQ TID [facility] Last Admin: 07/18/18 06:31 Dose: 5,000 unit Meropenem 1 gm/ Dextrose 100 mls @ 200 mls/hr IVPB Q8H-IV [facility] Insulin Detemir (Levemir Vial) 10 units SQ DAILY@0700 [facility] Last Admin: 07/18/18 06:35 Dose: Not Given Insulin Detemir (Levemir Vial) 32 units SQ [facility] Last Admin: 07/17/18 22:29 Dose: 32 units Isosorbide Mononitrate (Imdur -) 60 mg PO DAILY [facility] Last Admin: 07/18/18 10:56 Dose: 60 mg Levothyroxine Sodium (Synthroid -) 88 mcg PO DAILY@0700 [facility] Last Admin: 07/18/18 06:31 Dose: 88 mcg Mirtazapine (Remeron -) 15 mg PO [facility] Last Admin: 07/17/18 22:30 Dose: 15 mg Montelukast Sodium (Singulair -) 10 mg PO HS [facility] Last Admin: 07/17/18 22:30 Dose: 10 mg Nystatin (Nystop Powder -) 1 applic TP DAILY [facility] Last Admin: 07/18/18 10:56 Dose: 1 applic Fluticasone/Salmeterol (Advair 100mcg/50mcg -) 1 puff IH DAILY [facility] Last Admin: 07/18/18 10:57 Dose: 1 puff Senna (Senna -) 1 tab PO DAILY PRN PRN Reason: CONSTIPATION Tramadol HCl (Ultram -) 25 mg PO Q12H PRN PRN Reason: PAIN LEVEL 7 - 10 Last Admin: 07/16/18 10:58 Dose: 25 mg - Objective Vital Signs: Vital Signs Temperature 98.0 F 07/18/18 08:58 Pulse Rate 74 07/18/18 08:58 Respiratory Rate 18 07/18/18 08:58 Blood Pressure 132/80 07/18/18 08:58 O2 Sat by Pulse Oximetry (%) 97 07/17/18 21:00 Constitutional: Yes: No Distress, Calm, Obese Cardiovascular: Yes: Regular Rate and Rhythm Respiratory: Yes: Regular, CTA Bilaterally Gastrointestinal: Yes: Normal Bowel Sounds, Soft Musculoskeletal: Yes: WNL Extremities: Yes: WNL Neurological: Yes: Alert, Oriented Psychiatric: Yes: Alert, Oriented Labs: CBC, BMP 07/17/18 07:00 07/17/18 07:00 INR, PTT INR 0.99 (0.83-1.09) 07/15/18 10:56 Assessment/Plan Assessment/Plan Problem List - Problems (1) Diabetes Code(s): E11.9 - TYPE 2 DIABETES MELLITUS WITHOUT COMPLICATIONS (2) HTN (hypertension) Code(s): I10 - ESSENTIAL (PRIMARY) HYPERTENSION (3) CVA (cerebral vascular accident) Code(s): I63.9 - CEREBRAL INFARCTION, UNSPECIFIED 4 uti cx report noted plan will stop zosyn will switch to meropenam await for second identification rest as per the team
[2018-07-18] MEDS: MEROPENEM 1 GM in DEXTROSE 5%-WATER 100 ML IVPB SCH ×2 (14:02→21:18)
[2018-07-18] MEDS: MONTELUKAST NA 10 MG TABLET PO SCH (21:53)
[2018-07-18] MEDS: MIRTAZAPINE 15 MG TABLET (FP) PO SCH (21:53)
[2018-07-18] MEDS: ATORVASTATIN CA 40 MG TABLET (FP) PO SCH (21:53)
[2018-07-19] MEDS: HEPARIN NA (PORCINE) 5,000 UNITS/ML 1ML VIAL SQ SCH ×4 (05:39→23:23)
[2018-07-19] MEDS: FUROSEMIDE 40 MG TABLET (FP) PO SCH ×2 (05:53→13:34)
[2018-07-19] MEDS: LEVOTHYROXINE NA 88 MCG TABLET (FP) PO SCH (06:00)
[2018-07-19] MEDS: INSULIN (LEVEMIR) 100 UNITS/ML UNITS SQ SCH ×2 (06:22→23:17)
--- NOTE | 2018-07-19 10:50 | PN ---
Progress Note, Physician History of Present Illness: stable feels better - Current Medication List Current Medications: Active Medications Albuterol Sulfate (Ventolin 0.083% Nebulizer Soln -) 1 amp NEB Q4H PRN PRN Reason: SHORT OF BREATH/WHEEZING Amlodipine Besylate (Norvasc -) 5 mg PO DAILY [facility] Last Admin: 07/18/18 10:56 Dose: 5 mg Aspirin (Asa -) 81 mg PO DAILY [facility] Last Admin: 07/18/18 10:55 Dose: 81 mg Atorvastatin Calcium (Lipitor -) 40 mg PO HS [facility] Last Admin: 07/18/18 21:53 Dose: 40 mg Carvedilol (Coreg -) 25 mg PO BID [facility] Last Admin: 07/18/18 21:54 Dose: 25 mg Duloxetine HCl (Cymbalta -) 30 mg PO DAILY [facility] Last Admin: 07/18/18 10:56 Dose: 30 mg Furosemide (Lasix -) 80 mg PO BIDLASIX [facility] Last Admin: 07/19/18 05:53 Dose: 80 mg Heparin Sodium (Porcine) (Heparin -) 5,000 unit SQ TID [facility] Last Admin: 07/19/18 05:39 Dose: Not Given Meropenem 1 gm/ Dextrose 100 mls @ 200 mls/hr IVPB BID [facility] Last Admin: 07/18/18 21:18 Dose: 200 mls/hr Insulin Detemir (Levemir Vial) 10 units SQ DAILY@0700 [facility] Last Admin: 07/19/18 06:22 Dose: Not Given Insulin Detemir (Levemir Vial) 32 units SQ [facility] Last Admin: 07/18/18 22:34 Dose: Not Given Isosorbide Mononitrate (Imdur -) 60 mg PO DAILY [facility] Last Admin: 07/18/18 10:56 Dose: 60 mg Levothyroxine Sodium (Synthroid -) 88 mcg PO DAILY@0700 [facility] Last Admin: 07/19/18 06:00 Dose: 88 mcg Mirtazapine (Remeron -) 15 mg PO [facility] Last Admin: 07/18/18 21:53 Dose: 15 mg Montelukast Sodium (Singulair -) 10 mg PO [facility] Last Admin: 07/18/18 21:53 Dose: 10 mg Nystatin (Nystop Powder -) 1 applic TP DAILY [facility] Last Admin: 07/18/18 10:56 Dose: 1 applic Fluticasone/Salmeterol (Advair 100mcg/50mcg -) 1 puff IH DAILY [facility] Last Admin: 07/18/18 10:57 Dose: 1 puff Senna (Senna -) 1 tab PO DAILY PRN PRN Reason: CONSTIPATION - Objective Vital Signs: Vital Signs Temperature 98.3 F 07/19/18 06:00 Pulse Rate 75 07/19/18 06:00 Respiratory Rate 20 07/19/18 06:00 Blood Pressure 123/44 L 07/19/18 06:00 O2 Sat by Pulse Oximetry (%) 97 07/18/18 21:00 Constitutional: Yes: No Distress, Calm, Obese Cardiovascular: Yes: Regular Rate and Rhythm Respiratory: Yes: Regular, CTA Bilaterally Gastrointestinal: Yes: Normal Bowel Sounds, Soft Musculoskeletal: Yes: WNL Extremities: Yes: WNL Neurological: Yes: Alert, Oriented Psychiatric: Yes: Alert, Oriented Labs: CBC, BMP 07/17/18 07:00 07/17/18 07:00 INR, PTT INR 0.99 (0.83-1.09) 07/15/18 10:56 Assessment/Plan Assessment/Plan Problem List - Problems (1) Diabetes Code(s): E11.9 - TYPE 2 DIABETES MELLITUS WITHOUT COMPLICATIONS (2) HTN (hypertension) Code(s): I10 - ESSENTIAL (PRIMARY) HYPERTENSION (3) CVA (cerebral vascular accident) Code(s): I63.9 - CEREBRAL INFARCTION, UNSPECIFIED 4 uti cx report noted plan continue current abx will add augmentin patient will need iv abx for 2 weeks rest as per the team
[2018-07-19] MEDS: FLUTICASONE/SALMETEROL 100 MCG/50 MCG DISKUS IH SCH (11:07)
[2018-07-19] MEDS: MEROPENEM 1 GM in DEXTROSE 5%-WATER 100 ML IVPB SCH ×2 (11:07→23:16)
[2018-07-19] MEDS: CARVEDILOL 25 MG TABLET (FP) PO SCH ×2 (11:08→23:17)
[2018-07-19] MEDS: amLODIPine BESYLATE 5 MG TABLET (FP) PO SCH (11:08)
[2018-07-19] MEDS: DULoxetine HCL 30 MG CAPSULE.DR (FP) PO SCH (11:08)
[2018-07-19] MEDS: ASPIRIN 81 MG CHEWABLE TABLETS PO SCH (11:08)
[2018-07-19] MEDS: ISOSORBIDE MONONITRATE 60 MG TAB.SR.24H (FP) PO SCH (11:08)
[2018-07-19] MEDS: NYSTATIN POWDER 100,000 UNITS/GM - 15 GM TOPICAL POWDER TP SCH (11:08)
--- NOTE | 2018-07-19 13:35 | PN ---
Physical Exam: SUBJECTIVE: Patient seen and examined at bedside. , sister, daughter present. Patient complaining of itchiness/rash to lower abdomen and her back. Patient was examined head to toe, front and back. Daughter present. Per patient does not walk at home. She goes to a day program twice a week in a wheelchair. OBJECTIVE: Vital Signs Period Temp Pulse Resp BP Sys/Mike Pulse Ox Last 24 Hr 98 F-98.6 F 70-78 18-22 85-123/39-80 97 GENERAL: The patient is awake, alert, and fully oriented. LUNGS: Breath sounds equal, clear to auscultation bilaterally, no wheezes, no crackles, no accessory muscle use. HEART: Regular rate and rhythm, S1, S2 ABDOMEN: Obese, soft, nontender, nondistended, erythematous rash below pannus resolved LOWER EXTREMITIES: LEFT: 2+ edema; RIGHT: 4+ pitting edema from toes to knee very mildly improved SKIN: Warm, dry, normal turgor Stage II ulcer posterior upper right thigh, 1cm W x 05.cm L x 01.cm deep Iatriginous areas below breasts and pannus: no rashes seen CBCD WBC 10.1 K/mm3 (4.0-10.0) H 07/17/18 07:00 RBC 3.55 M/mm3 (3.60-5.2) L 07/17/18 07:00 Hgb 9.3 GM/dL (10.7-15.3) L 07/17/18 07:00 Hct 29.3 % (32.4-45.2) L 07/17/18 07:00 MCV 82.6 fl (80-96) 07/17/18 07:00 MCHC 31.8 g/dl (32.0-36.0) L 07/17/18 07:00 RDW 18.7 % (11.6-15.6) H 07/17/18 07:00 Plt Count 134 K/MM3 (134-434) 07/17/18 07:00 MPV 9.1 fl (7.5-11.1) 07/17/18 07:00 CMP Sodium 134 mmol/L (136-145) L 07/17/18 07:00 Potassium 3.7 mmol/L (3.5-5.1) 07/17/18 07:00 Chloride 95 mmol/L (98-107) L 07/17/18 07:00 Carbon Dioxide 30 mmol/L (21-32) 07/17/18 07:00 Anion Gap 10 MMOL/L (8-16) 07/17/18 07:00 BUN 76 mg/dL (7-18) H 07/17/18 07:00 Creatinine 2.0 mg/dL (0.55-1.3) H 07/17/18 07:00 Creat Clearance w eGFR 24.16 (>60) 07/17/18 07:00 Calcium 8.3 mg/dL (8.5-10.1) L 07/17/18 07:00 Total Bilirubin 0.4 mg/dL (0.2-1) 07/14/18 21:54 AST 6 U/L (15-37) L 07/14/18 21:54 ALT 17 U/L (13-61) 07/14/18 21:54 Alkaline Phosphatase 55 U/L (45-117) 07/14/18 21:54 Total Protein 6.3 g/dl (6.4-8.2) L 07/14/18 21:54 Albumin 2.9 g/dl (3.4-5.0) L 07/14/18 21:54 Active Medications Generic Name Dose Route Start Last Admin Trade Name Freq PRN Reason Stop Dose Admin Albuterol Sulfate 1 amp 07/17/18 11:35 Ventolin 0.083% Nebulizer Soln - NEB Q4H PRN SHORT OF BREATH/WHEEZING Amlodipine Besylate 5 mg 07/15/18 13:15 07/19/18 11:08 Norvasc - PO Not Given DAILY [facility] Amoxicillin/Clavulanate Potassium 1 tab 07/19/18 17:30 Augmentin - 500mg Tablet PO BID@0800,1730 [facility] Aspirin 81 mg 07/15/18 13:15 07/19/18 11:08 Asa - PO 81 mg DAILY [facility] Administration Atorvastatin Calcium 40 mg 07/15/18 22:00 07/18/18 21:53 Lipitor - PO 40 mg HS [facility] Administration Carvedilol 25 mg 07/15/18 22:00 07/19/18 11:08 Coreg - PO Not Given BID [facility] Duloxetine HCl 30 mg 07/16/18 10:00 07/19/18 11:08 Cymbalta - PO 30 mg DAILY [facility] Administration Furosemide 80 mg 07/15/18 14:00 07/19/18 13:34 Lasix - PO 80 mg BIDLASIX [facility] Administration Heparin Sodium (Porcine) 5,000 unit 07/15/18 06:45 07/19/18 13:34 Heparin - SQ Not Given TID [facility] Meropenem 1 gm/ Dextrose 100 mls @ 200 mls/hr 07/18/18 12:15 07/19/18 11:07 IVPB 200 mls/hr BID [facility] Administration Insulin Detemir 10 units 07/16/18 07:00 07/19/18 06:22 Levemir Vial SQ Not Given DAILY@0700 [facility] Insulin Detemir 32 units 07/15/18 22:00 07/18/18 22:34 Levemir Vial SQ Not Given HS [facility] Isosorbide Mononitrate 60 mg 07/16/18 10:00 07/19/18 11:08 Imdur - PO 60 mg DAILY [facility] Administration Levothyroxine Sodium 88 mcg 07/16/18 07:00 07/19/18 06:00 Synthroid - PO 88 mcg DAILY@0700 [facility] Administration Mirtazapine 15 mg 07/16/18 22:00 07/18/18 21:53 Remeron - PO 15 mg HS [facility] Administration Montelukast Sodium 10 mg 07/15/18 13:30 07/18/18 21:53 Singulair - PO 10 mg HS [facility] Administration Nystatin 1 applic 07/17/18 12:00 07/19/18 11:08 Nystop Powder - TP 1 applic DAILY [facility] Administration Fluticasone/Salmeterol 1 puff 07/15/18 14:00 07/19/18 11:07 Advair 100mcg/50mcg - IH 1 puff DAILY [facility] Administration Senna 1 tab 07/15/18 12:43 Senna - PO DAILY PRN CONSTIPATION ASSESSMENT/PLAN This is a 77 year old woman with a history of HTN, HLD, asthma, COPD, type 2 DM , CVA with right hemiparesis, CKD, anemia, and obesity who presented to the ED after she was found to have a ESBL in a urine culture. 1. UTI - Urine culture 07/12 growing ESBL Klebsiella - Urine culture 07/14 growing ESBL Klebsiella and Group D Strep/Enterococcus - Afebrile, leukocytosis resolved - Invanz changed to Zosyn; Zosyn changed to meropenem and add augmentin; needs to complete 2 weeks of IV antibiotics 2. HTN - Continue Norvasc, Coreg, Lasix 3. Hyperlipidemia - Continue Lipitor 4. COPD/asthma - Stable - Continue Advair, Singulair 5. Type 2 DM - Continue Levemir - Novolog sliding scale coverage 6. 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 CAD - Continue aspirin, Lipitor, Coreg 8. Stage 4 CKD - Cr 2.0 which is baseline 9. Anemia - Hemoglobin stable 10. Obesity with BMI 38.8 11. Lower extremity edema --continue lasix PO 80mg BID 12. Hypothyroidism --continue levothyroxine FEN Fluids: PO intake adequate Electrolytes: replete as indicated Nutrition: diabetic, low sodium DVT prophylaxis: subq heparin Physical therapy Dispo: continues to require inpatient care. Plan is for PICC line tomorrow morning and SNF placement. Full code. Visit type - Emergency Visit Emergency Visit: Yes ED Registration Date: 07/15/18 Care time: The patient presented to the Emergency Department on the above date and was hospitalized for further evaluation of their emergent condition. - New Patient This patient is new to me today: No - Critical Care Critical Care patient: No
[2018-07-19] MEDS: AMOX TR/POT CLAV 500MG/125MG TABLETS (FP) PO SCH (17:27)
[2018-07-19] MEDS ORDERED: PT OWN MED DRAWER 7, Y5N ONE (23:09)
[2018-07-19] MEDS: MONTELUKAST NA 10 MG TABLET PO SCH (23:17)
[2018-07-19] MEDS: GABAPENTIN 100 MG CAPSULE (FP) PO SCH (23:17)
[2018-07-19] MEDS: MIRTAZAPINE 15 MG TABLET (FP) PO SCH (23:17)
[2018-07-19] MEDS: ATORVASTATIN CA 40 MG TABLET (FP) PO SCH (23:17)
[2018-07-19] MEDS ORDERED: ACETAMINOPHEN 325 MG TABLET (FP) PO PRN (23:50)
[2018-07-20] MEDS: LEVOTHYROXINE NA 88 MCG TABLET (FP) PO SCH (06:00)
[2018-07-20] MEDS: GABAPENTIN 100 MG CAPSULE (FP) PO SCH ×3 (06:00→20:59)
[2018-07-20] MEDS: INSULIN (LEVEMIR) 100 UNITS/ML UNITS SQ SCH ×2 (06:00→21:37)
[2018-07-20] MEDS: FUROSEMIDE 40 MG TABLET (FP) PO SCH ×2 (06:00→14:48)
[2018-07-20] MEDS: HEPARIN NA (PORCINE) 5,000 UNITS/ML 1ML VIAL SQ SCH ×3 (06:01→21:00)
[2018-07-20] MEDS ORDERED: PICC LINE 8 ML FLUSH PROTOCOL IVPUSH PRN (09:07)
[2018-07-20] MEDS: ALBUTEROL SO4 0.083% IH SOL 2.5 MG/3 ML VIAL.NEB. NEB PRN ×2 (09:08→16:00)
[2018-07-20] MEDS ORDERED: PT OWN MED DRAWER 7, Y5N ONE ×2 (10:00→20:38)
[2018-07-20] MEDS: DULoxetine HCL 30 MG CAPSULE.DR (FP) PO SCH (10:03)
[2018-07-20] MEDS: AMOX TR/POT CLAV 500MG/125MG TABLETS (FP) PO SCH ×2 (10:03→17:26)
[2018-07-20] MEDS: CARVEDILOL 25 MG TABLET (FP) PO SCH ×2 (10:03→20:59)
[2018-07-20] MEDS: ISOSORBIDE MONONITRATE 60 MG TAB.SR.24H (FP) PO SCH (10:03)
[2018-07-20] MEDS: ASPIRIN 81 MG CHEWABLE TABLETS PO SCH (10:03)
[2018-07-20] MEDS: amLODIPine BESYLATE 5 MG TABLET (FP) PO SCH (10:03)
[2018-07-20] MEDS: MEROPENEM 1 GM in DEXTROSE 5%-WATER 100 ML IVPB SCH ×2 (10:05→20:58)
[2018-07-20] MEDS: FLUTICASONE/SALMETEROL 100 MCG/50 MCG DISKUS IH SCH (10:06)
[2018-07-20] MEDS: NYSTATIN POWDER 100,000 UNITS/GM - 15 GM TOPICAL POWDER TP SCH (10:06)
--- NOTE | 2018-07-20 13:05 | PN ---
Progress Note, Physician History of Present Illness: stable doing well no issues - Current Medication List Current Medications: Active Medications Acetaminophen (Tylenol -) 650 mg PO Q6H PRN PRN Reason: PAIN Last Admin: 07/20/18 00:03 Dose: 650 mg Albuterol Sulfate (Ventolin 0.083% Nebulizer Soln -) 1 amp NEB Q4H PRN PRN Reason: SHORT OF BREATH/WHEEZING Last Admin: 07/20/18 09:08 Dose: 1 amp Amlodipine Besylate (Norvasc -) 5 mg PO DAILY [facility] Last Admin: 07/20/18 10:03 Dose: 5 mg Amoxicillin/Clavulanate Potassium (Augmentin - 500mg Tablet) 1 tab PO BID@0800, 1730 [facility] Last Admin: 07/20/18 10:03 Dose: 1 tab Aspirin (Asa -) 81 mg PO DAILY [facility] Last Admin: 07/20/18 10:03 Dose: 81 mg Atorvastatin Calcium (Lipitor -) 40 mg PO HS [facility] Last Admin: 07/19/18 23:17 Dose: 40 mg Carvedilol (Coreg -) 25 mg PO BID [facility] Last Admin: 07/20/18 10:03 Dose: 25 mg Duloxetine HCl (Cymbalta -) 30 mg PO DAILY [facility] Last Admin: 07/20/18 10:03 Dose: 30 mg Furosemide (Lasix -) 80 mg PO BIDLASIX [facility] Last Admin: 07/20/18 06:00 Dose: 80 mg Gabapentin (Neurontin -) 100 mg PO TID [facility] Last Admin: 07/20/18 06:00 Dose: 100 mg Heparin Sodium (Porcine) (Heparin -) 5,000 unit SQ TID [facility] Last Admin: 07/20/18 06:01 Dose: Not Given IV Flush (Picc Line Flush) 8 ml IVPUSH PRN PRN PRN Reason: Protocol Meropenem 1 gm/ Dextrose 100 mls @ 200 mls/hr IVPB BID [facility] Last Admin: 07/20/18 10:05 Dose: 200 mls/hr Insulin Detemir (Levemir Vial) 10 units SQ DAILY@0700 [facility] Last Admin: 07/20/18 06:00 Dose: 10 units Insulin Detemir (Levemir Vial) 32 units SQ HS [facility] Last Admin: 07/19/18 23:17 Dose: 32 units Isosorbide Mononitrate (Imdur -) 60 mg PO DAILY [facility] Last Admin: 07/20/18 10:03 Dose: 60 mg Levothyroxine Sodium (Synthroid -) 88 mcg PO DAILY@0700 [facility] Last Admin: 07/20/18 06:00 Dose: 88 mcg Mirtazapine (Remeron -) 15 mg PO HS [facility] Last Admin: 07/19/18 23:17 Dose: 15 mg Montelukast Sodium (Singulair -) 10 mg PO HS [facility] Last Admin: 07/19/18 23:17 Dose: 10 mg Nystatin (Nystop Powder -) 1 applic TP DAILY [facility] Last Admin: 07/20/18 10:06 Dose: 1 applic Fluticasone/Salmeterol (Advair 100mcg/50mcg -) 1 puff IH DAILY [facility] Last Admin: 07/20/18 10:06 Dose: 1 puff Senna (Senna -) 1 tab PO DAILY PRN PRN Reason: CONSTIPATION - Objective Vital Signs: Vital Signs Temperature 98.1 F 07/20/18 06:00 Pulse Rate 76 07/20/18 06:00 Respiratory Rate 20 07/20/18 06:00 Blood Pressure 139/72 07/20/18 06:00 O2 Sat by Pulse Oximetry (%) 95 07/19/18 23:55 Constitutional: Yes: No Distress, Calm Cardiovascular: Yes: S1, S2 Respiratory: Yes: Regular, CTA Bilaterally Gastrointestinal: Yes: Normal Bowel Sounds, Soft Musculoskeletal: Yes: WNL Extremities: Yes: WNL Neurological: Yes: Alert, Oriented Psychiatric: Yes: Alert, Oriented Labs: CBC, BMP 07/17/18 07:00 07/17/18 07:00 INR, PTT INR 0.99 (0.83-1.09) 07/15/18 10:56 Assessment/Plan Assessment/Plan Problem List - Problems (1) Diabetes Code(s): E11.9 - TYPE 2 DIABETES MELLITUS WITHOUT COMPLICATIONS (2) HTN (hypertension) Code(s): I10 - ESSENTIAL (PRIMARY) HYPERTENSION (3) CVA (cerebral vascular accident) Code(s): I63.9 - CEREBRAL INFARCTION, UNSPECIFIED 4 uti cx report noted plan continue current abx will add augmentin patient will need iv abx for 2 weeks rest as per the team physio
--- NOTE | 2018-07-20 18:19 | PN ---
Physical Exam: SUBJECTIVE: Patient seen and examined at bedside. OBJECTIVE: Vital Signs Period Temp Pulse Resp BP Sys/Mike Pulse Ox Last 24 Hr 98.1 F-98.5 F 76-85 18-20 139-146/71-72 94-95 GENERAL: The patient is sleepy but easily arousable, fully oriented. LUNGS: Breath sounds equal, clear to auscultation bilaterally, no wheezes, no crackles, no accessory muscle use. HEART: Regular rate and rhythm, S1, S2 ABDOMEN: Obese, soft, nontender, nondistended, erythematous rash below pannus resolved LOWER EXTREMITIES: LEFT: 2+ edema; RIGHT: 4+ pitting edema from toes to knee very mildly improved CBCD WBC 10.1 K/mm3 (4.0-10.0) H 07/17/18 07:00 RBC 3.55 M/mm3 (3.60-5.2) L 07/17/18 07:00 Hgb 9.3 GM/dL (10.7-15.3) L 07/17/18 07:00 Hct 29.3 % (32.4-45.2) L 07/17/18 07:00 MCV 82.6 fl (80-96) 07/17/18 07:00 MCHC 31.8 g/dl (32.0-36.0) L 07/17/18 07:00 RDW 18.7 % (11.6-15.6) H 07/17/18 07:00 Plt Count 134 K/MM3 (134-434) 07/17/18 07:00 MPV 9.1 fl (7.5-11.1) 07/17/18 07:00 CMP Sodium 134 mmol/L (136-145) L 07/17/18 07:00 Potassium 3.7 mmol/L (3.5-5.1) 07/17/18 07:00 Chloride 95 mmol/L (98-107) L 07/17/18 07:00 Carbon Dioxide 30 mmol/L (21-32) 07/17/18 07:00 Anion Gap 10 MMOL/L (8-16) 07/17/18 07:00 BUN 76 mg/dL (7-18) H 07/17/18 07:00 Creatinine 2.0 mg/dL (0.55-1.3) H 07/17/18 07:00 Creat Clearance w eGFR 24.16 (>60) 07/17/18 07:00 Calcium 8.3 mg/dL (8.5-10.1) L 07/17/18 07:00 Total Bilirubin 0.4 mg/dL (0.2-1) 07/14/18 21:54 AST 6 U/L (15-37) L 07/14/18 21:54 ALT 17 U/L (13-61) 07/14/18 21:54 Alkaline Phosphatase 55 U/L (45-117) 07/14/18 21:54 Total Protein 6.3 g/dl (6.4-8.2) L 07/14/18 21:54 Albumin 2.9 g/dl (3.4-5.0) L 07/14/18 21:54 Laboratory Results - last 24 hr 07/19/18 07/20/18 07/20/18 23:15 05:58 17:27 POC Glucometer 206 198 233 Active Medications Generic Name Dose Route Start Last Admin Trade Name Freq PRN Reason Stop Dose Admin Acetaminophen 650 mg 07/19/18 23:50 07/20/18 00:03 Tylenol - PO 650 mg Q6H PRN Administration PAIN Albuterol Sulfate 1 amp 07/17/18 11:35 07/20/18 09:08 Ventolin 0.083% Nebulizer Soln - NEB 1 amp Q4H PRN Administration SHORT OF BREATH/WHEEZING Amlodipine Besylate 5 mg 07/15/18 13:15 07/20/18 10:03 Norvasc - PO 5 mg DAILY [facility] Administration Amoxicillin/Clavulanate Potassium 1 tab 07/19/18 17:30 07/20/18 17:26 Augmentin - 500mg Tablet PO 1 tab BID@0800,1730 [facility] Administration Aspirin 81 mg 07/15/18 13:15 07/20/18 10:03 Asa - PO 81 mg DAILY [facility] Administration Atorvastatin Calcium 40 mg 07/15/18 22:00 07/19/18 23:17 Lipitor - PO 40 mg HS [facility] Administration Carvedilol 25 mg 07/15/18 22:00 07/20/18 10:03 Coreg - PO 25 mg BID [facility] Administration Duloxetine HCl 30 mg 07/16/18 10:00 07/20/18 10:03 Cymbalta - PO 30 mg DAILY [facility] Administration Furosemide 80 mg 07/15/18 14:00 07/20/18 14:48 Lasix - PO 80 mg BIDLASIX [facility] Administration Gabapentin 100 mg 07/19/18 22:00 07/20/18 14:48 Neurontin - PO 100 mg TID [facility] Administration Heparin Sodium (Porcine) 5,000 unit 07/15/18 06:45 07/20/18 14:48 Heparin - SQ Not Given TID [facility] IV Flush 8 ml 07/20/18 09:07 Picc Line Flush IVPUSH PRN PRN Protocol Meropenem 1 gm/ Dextrose 100 mls @ 200 mls/hr 07/18/18 12:15 07/20/18 10:05 IVPB 200 mls/hr BID [facility] Administration Insulin Detemir 10 units 07/16/18 07:00 07/20/18 06:00 Levemir Vial SQ 10 units DAILY@0700 [facility] Administration Insulin Detemir 32 units 07/15/18 22:00 07/19/18 23:17 Levemir Vial SQ 32 units HS [facility] Administration Isosorbide Mononitrate 60 mg 07/16/18 10:00 07/20/18 10:03 Imdur - PO 60 mg DAILY [facility] Administration Levothyroxine Sodium 88 mcg 07/16/18 07:00 07/20/18 06:00 Synthroid - PO 88 mcg DAILY@0700 [facility] Administration Mirtazapine 15 mg 07/16/18 22:00 07/19/18 23:17 Remeron - PO 15 mg HS [facility] Administration Montelukast Sodium 10 mg 07/15/18 13:30 07/19/18 23:17 Singulair - PO 10 mg HS [facility] Administration Nystatin 1 applic 07/17/18 12:00 07/20/18 10:06 Nystop Powder - TP 1 applic DAILY [facility] Administration Fluticasone/Salmeterol 1 puff 07/15/18 14:00 07/20/18 10:06 Advair 100mcg/50mcg - IH 1 puff DAILY [facility] Administration Senna 1 tab 07/15/18 12:43 Senna - PO DAILY PRN CONSTIPATION ASSESSMENT/PLAN This is a 77 year old woman with a history of HTN, HLD, asthma, COPD, type 2 DM , CVA with right hemiparesis, CKD, anemia, and obesity who presented to the ED after she was found to have a ESBL in a urine culture. 1. UTI - Urine culture 07/12 growing ESBL Klebsiella - Urine culture 07/14 growing ESBL Klebsiella and Group D Strep/Enterococcus - Afebrile, leukocytosis resolved - Invanz changed to Zosyn; Zosyn changed to meropenem and add augmentin; needs to complete 2 weeks of IV antibiotics 2. HTN - Continue Norvasc, Coreg, Lasix 3. Hyperlipidemia - Continue Lipitor 4. COPD/asthma - Stable - Continue Advair, Singulair 5. Type 2 DM - Continue Levemir - Novolog sliding scale coverage 6. 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 CAD - Continue aspirin, Lipitor, Coreg 8. Stage 4 CKD - Cr 2.0 which is baseline 9. Anemia - Hemoglobin stable 10. Obesity with BMI 38.8 11. Lower extremity edema --continue lasix PO 80mg BID 12. Hypothyroidism --continue levothyroxine FEN Fluids: PO intake adequate Electrolytes: replete as indicated Nutrition: diabetic, low sodium DVT prophylaxis: subq heparin Physical therapy Dispo: continues to require inpatient care. Insurance issues have been resolved. Plan is for PICC line tomorrow morning and SNF placement. Full code. Visit type - Emergency Visit Emergency Visit: Yes ED Registration Date: 07/15/18 Care time: The patient presented to the Emergency Department on the above date and was hospitalized for further evaluation of their emergent condition. - New Patient This patient is new to me today: No - Critical Care Critical Care patient: No
[2018-07-20] MEDS: MIRTAZAPINE 15 MG TABLET (FP) PO SCH (20:59)
[2018-07-20] MEDS: MONTELUKAST NA 10 MG TABLET PO SCH (20:59)
[2018-07-20] MEDS: ATORVASTATIN CA 40 MG TABLET (FP) PO SCH (20:59)
[2018-07-21] MEDS: HEPARIN NA (PORCINE) 5,000 UNITS/ML 1ML VIAL SQ SCH ×3 (06:01→14:38)
[2018-07-21] MEDS: FUROSEMIDE 40 MG TABLET (FP) PO SCH ×2 (06:08→14:35)
[2018-07-21] MEDS: GABAPENTIN 100 MG CAPSULE (FP) PO SCH ×2 (06:08→14:35)
[2018-07-21] MEDS: LEVOTHYROXINE NA 88 MCG TABLET (FP) PO SCH (06:08)
[2018-07-21] MEDS: INSULIN (LEVEMIR) 100 UNITS/ML UNITS SQ SCH (06:08)
[2018-07-21] MEDS: ALBUTEROL SO4 0.083% IH SOL 2.5 MG/3 ML VIAL.NEB. NEB PRN (07:38)
[2018-07-21] MEDS: amLODIPine BESYLATE 5 MG TABLET (FP) PO SCH (10:38)
[2018-07-21] MEDS: CARVEDILOL 25 MG TABLET (FP) PO SCH (10:38)
[2018-07-21] MEDS: MEROPENEM 1 GM in DEXTROSE 5%-WATER 100 ML IVPB SCH (10:38)
[2018-07-21] MEDS: ASPIRIN 81 MG CHEWABLE TABLETS PO SCH (10:38)
[2018-07-21] MEDS: DULoxetine HCL 30 MG CAPSULE.DR (FP) PO SCH (10:38)
[2018-07-21] MEDS: FLUTICASONE/SALMETEROL 100 MCG/50 MCG DISKUS IH SCH (10:40)
[2018-07-21] MEDS: NYSTATIN POWDER 100,000 UNITS/GM - 15 GM TOPICAL POWDER TP SCH (10:40)
[2018-07-21] MEDS: AMOX TR/POT CLAV 500MG/125MG TABLETS (FP) PO SCH (10:40)
[2018-07-21] MEDS: ISOSORBIDE MONONITRATE 60 MG TAB.SR.24H (FP) PO SCH (10:49)
--- NOTE | 2018-07-21 11:42 | DS ---
Physical Exam: SUBJECTIVE: Patient seen and examined OBJECTIVE: Vital Signs Period Temp Pulse Resp BP Sys/Mike Pulse Ox Last 24 Hr 98.4 F-98.6 F 76-85 18-22 135-144/64-71 94-94 PHYSICAL EXAM GENERAL: The patient is awake, alert, and fully oriented, in no acute distress. HEAD: Normal with no signs of trauma. EYES: PERRL, extraocular movements intact, sclera anicteric, conjunctiva clear. ENT: Ears normal, nares patent, oropharynx clear without exudates, moist mucous membranes. NECK: Trachea midline, full range of motion, supple. LUNGS: Breath sounds equal, clear to auscultation bilaterally, no wheezes, no crackles, no accessory muscle use. HEART: Regular rate and rhythm, S1, S2 without murmur, rub or gallop. ABDOMEN: Soft, nontender, nondistended, normoactive bowel sounds, no guarding, no rebound, no hepatosplenomegaly, no masses. EXTREMITIES: 2+ pulses, warm, well-perfused, no edema. NEUROLOGICAL: Cranial nerves II through XII grossly intact. Normal speech, gait not observed. PSYCH: Normal mood, normal affect. SKIN: Warm, dry, normal turgor, no rashes or lesions noted. LABS Laboratory Results - last 24 hr 07/20/18 07/20/18 07/21/18 17:27 21:03 06:04 POC Glucometer 233 240 145 HOSPITAL COURSE: Date of Admission:07/15/18 Date of Discharge: 07/21/18 Discharge Summary Reason For Visit: UTI DUE TO EXTENDED-SPECTRUM BETA LACTAMASE (ESBL) Current Active Problems UTI (urinary tract infection) (Acute) UTI due to extended-spectrum beta lactamase (ESBL) producing Escherichia coli ( Acute) Condition: Improved - Instructions Diet, Activity, Other Instructions: Patient is being discharged to your facility today with a PICC line. She needs 24 doses of meropenem dosed twice daily. She also needs to take 28 doses of PO augmentin dosed twice daily. Disposition: [facility] FACILITY - Home Medications Comprehensive Discharge Medication List: Ambulatory Orders Albuterol Sulfate Inhaler - [Ventolin HFA Inhaler -] 1 - 2 inh PO QID #1 inhaler 06/02/18 Aspirin [ASA -] 81 mg PO DAILY 06/02/18 Atorvastatin Ca [Lipitor] 40 mg PO HS 06/02/18 Duloxetine HCl 30 mg PO DAILY 06/02/18 Furosemide [Lasix] 80 mg PO BID 06/02/18 Isosorbide Mononitrate [Imdur -] 60 mg PO DAILY 06/02/18 Mirtazapine 15 mg PO DAILY 06/02/18 Montelukast Sodium [Singulair] 10 mg PO DAILY 06/02/18 Salmeterol/Fluticasone [Advair 100Mcg/50Mcg -] 1 inh IH DAILY #30 inh 06/02/18 Sennosides [Senna] 8.6 mg PO PRN PRN #30 tablet 06/02/18 Insulin (Levemir) [Levemir Vial] 10 unit SQ DAILY #1 vial 06/03/18 Insulin (Levemir) [Levemir Vial] 32 unit SQ HS #1 vial 06/03/18 Insulin Aspart [Novolog] See Protocol SQ AC 06/03/18 Amlodipine Besylate [Norvasc -] 5 mg PO DAILY tablet 06/09/18 Carvedilol [Coreg -] 25 mg PO BID tablet 06/09/18 Levothyroxine [Synthroid -] 88 mcg PO DAILY 30 Days #30 tablet 06/09/18 Amox-Tr/K Cl [Augmentin 500-125mg Tablet -] 1 tab PO BID@0800,1730 #28 tablet Gabapentin [Neurontin -] 100 mg PO TID capsule 07/20/18 Meropenem [Merrem (Restricted To Id) -] 1 gm IVPB BID #24 vial 07/20/18 Nystatin Powder [Nystop Powder -] 1 applic TP DAILY #30 applic 07/20/18 - Discharge Referral Referred to [facility] No
--- NOTE | 2018-07-21 11:59 | PN ---
Progress Note, Physician History of Present Illness: doing well no issues patient for picc line - Current Medication List Current Medications: Active Medications Acetaminophen (Tylenol -) 650 mg PO Q6H PRN PRN Reason: PAIN Last Admin: 07/20/18 00:03 Dose: 650 mg Albuterol Sulfate (Ventolin 0.083% Nebulizer Soln -) 1 amp NEB Q4H PRN PRN Reason: SHORT OF BREATH/WHEEZING Last Admin: 07/21/18 07:38 Dose: 1 amp Amlodipine Besylate (Norvasc -) 5 mg PO DAILY [facility] Last Admin: 07/21/18 10:38 Dose: 5 mg Amoxicillin/Clavulanate Potassium (Augmentin - 500mg Tablet) 1 tab PO BID@0800, 1730 [facility] Last Admin: 07/21/18 10:40 Dose: 1 tab Aspirin (Asa -) 81 mg PO DAILY [facility] Last Admin: 07/21/18 10:38 Dose: 81 mg Atorvastatin Calcium (Lipitor -) 40 mg PO HS [facility] Last Admin: 07/20/18 20:59 Dose: 40 mg Carvedilol (Coreg -) 25 mg PO BID [facility] Last Admin: 07/21/18 10:38 Dose: 25 mg Duloxetine HCl (Cymbalta -) 30 mg PO DAILY [facility] Last Admin: 07/21/18 10:38 Dose: 30 mg Furosemide (Lasix -) 80 mg PO BIDLASIX [facility] Last Admin: 07/21/18 06:08 Dose: 80 mg Gabapentin (Neurontin -) 100 mg PO TID [facility] Last Admin: 07/21/18 06:08 Dose: 100 mg Heparin Sodium (Porcine) (Heparin -) 5,000 unit SQ TID [facility] Last Admin: 07/21/18 06:01 Dose: Not Given IV Flush (Picc Line Flush) 8 ml IVPUSH PRN PRN PRN Reason: Protocol Meropenem 1 gm/ Dextrose 100 mls @ 200 mls/hr IVPB BID [facility] Last Admin: 07/21/18 10:38 Dose: 200 mls/hr Insulin Detemir (Levemir Vial) 10 units SQ DAILY@0700 [facility] Last Admin: 07/21/18 06:08 Dose: 10 units Insulin Detemir (Levemir Vial) 32 units SQ HS [facility] Last Admin: 07/20/18 21:37 Dose: 32 units Isosorbide Mononitrate (Imdur -) 60 mg PO DAILY [facility] Last Admin: 07/21/18 10:49 Dose: 60 mg Levothyroxine Sodium (Synthroid -) 88 mcg PO DAILY@0700 [facility] Last Admin: 07/21/18 06:08 Dose: 88 mcg Mirtazapine (Remeron -) 15 mg PO [facility] Last Admin: 07/20/18 20:59 Dose: 15 mg Montelukast Sodium (Singulair -) 10 mg PO HS [facility] Last Admin: 07/20/18 20:59 Dose: 10 mg Nystatin (Nystop Powder -) 1 applic TP DAILY [facility] Last Admin: 07/21/18 10:40 Dose: 1 applic Fluticasone/Salmeterol (Advair 100mcg/50mcg -) 1 puff IH DAILY [facility] Last Admin: 07/21/18 10:40 Dose: 1 puff Senna (Senna -) 1 tab PO DAILY PRN PRN Reason: CONSTIPATION - Objective Vital Signs: Vital Signs Temperature 98.6 F 07/21/18 07:42 Pulse Rate 77 07/21/18 07:42 Respiratory Rate 20 07/21/18 07:42 Blood Pressure 137/67 07/21/18 07:42 O2 Sat by Pulse Oximetry (%) 94 L 07/20/18 21:00 Constitutional: Yes: No Distress, Calm Cardiovascular: Yes: Regular Rate and Rhythm Respiratory: Yes: Regular, CTA Bilaterally Gastrointestinal: Yes: Normal Bowel Sounds, Soft Musculoskeletal: Yes: WNL Extremities: Yes: WNL Neurological: Yes: Alert, Oriented Psychiatric: Yes: Alert, Oriented Labs: CBC, BMP 07/17/18 07:00 07/17/18 07:00 INR, PTT INR 0.99 (0.83-1.09) 07/15/18 10:56 Assessment/Plan Assessment/Plan Problem List - Problems (1) Diabetes Code(s): E11.9 - TYPE 2 DIABETES MELLITUS WITHOUT COMPLICATIONS (2) HTN (hypertension) Code(s): I10 - ESSENTIAL (PRIMARY) HYPERTENSION (3) CVA (cerebral vascular accident) Code(s): I63.9 - CEREBRAL INFARCTION, UNSPECIFIED 4 uti going for picc line plan continue current abx will add augmentin patient will need iv abx for 2 weeks rest as per the team physio
[2018-07-21 12:18] VITALS: BP 113/64; PULSE 65; TEMP 98
== END 2018-07-21 15:22 | DRG 690 ==
LOC: JER 20:54 → INTOOBSV 07-15 02:17 → UNDOADMOB 07-15 02:17 → JERBED 07-15 02:17 → J8W 07-15 17:13 → OBSVTOIN 07-15 17:23
PROVIDERS: ADMIT Internal Medicine; ATTEND Nurse Practitioner Acute Care
PROC: 02HV33Z Insertion of Infusion Device into Superior Vena Cava, Percutaneous Approach (ICD-10-PCS; principal; 2018-07-21)
DX: N39.0 Urinary tract infection, site not specified (principal); I69.351 Hemiplegia and hemiparesis following cerebral infarction affecting right dominant side; N18.4 Chronic kidney disease, stage 4 (severe); Z16.12 Extended spectrum beta lactamase (ESBL) resistance; E78.5 Hyperlipidemia, unspecified; E11.9 Type 2 diabetes mellitus without complications; E66.9 Obesity, unspecified; Z68.38 Body mass index [BMI] 38.0-38.9, adult; I12.9 Hypertensive chronic kidney disease with stage 1 through stage 4 chronic kidney disease, or unspecified chronic kidney disease; J44.9 Chronic obstructive pulmonary disease, unspecified; J45.909 Unspecified asthma, uncomplicated; I25.10 Atherosclerotic heart disease of native coronary artery without angina pectoris; D64.9 Anemia, unspecified; E03.9 Hypothyroidism, unspecified
CPT/HCPCS: 36415; 36569; 71045-TC-FY; 77001-TC-FY; 80048; 80053; 81003; 81015; 82803; 82962; 83605; 83735; 84100; 84484; 85025; 85610; 85730; 87040; 87086; 87186; 93005; 93010; 94640; 97116-GP; 97161-GP; 99285-25; C1751; G0378; J1644; J7030